=== PATIENT | male | born 1965 | race Caucasian/White ===

== ENCOUNTER → 2017-04-19 15:07 | Outpatient (CLI) | payer OTHER, SELFPAY ==
[2017-04-19 16:24] LABS: Absolute Lymphocyte Count 2.58 X10^3/ul (0.83-4.51); Absolute Neutrophil Count 7.5 X10^3/uL (2.0-7.7); Basophil# 0.05 X10^3/uL; Basophil% 0.4 % (0-1); Eosinophils% 5.1 % (0-5); Hematocrit 43.4 % (40-54); Hemoglobin 14.7 g/dl (13.0-16.5); Lymphocyte # 2.58 X10^3/ul (4.0); Lymphocyte % 22.1 % (19-41); Mean Corp Hgb Conc 33.9 g/gl (32-36); Mean Corpuscular Hgb 30.1 pg (27.0-32.0); Mean Corpuscular Volume 88.9 fL (80-94); Mean Platelet Vol. 9.5 fl (6.2-12.0); Monocyte# 0.96 X10^3/uL; Monocyte% 8.2 % (0-10); Neutrophil # 7.46 X10^3/uL (2.7-7.7); Neutrophil % 63.9 % (47-70); Platelet Count 326 K/mm3 (150-450); RBC Distribution Width CV 14.3 % (11.6-14.6); RBC Distribution Width SD 46.1 fl (35.1-43.9); Red Blood Count 4.88 M/mm3 (4.6-6.2); White Blood Count 11.7 K/mm3 (4.4-11.0)
[2017-04-19 16:28] LABS: POSITIVE COUNT NO; POSITIVE DIFFERENTIAL NO; POSITIVE MORPHOLOGY NO
[2017-04-19 16:48] LABS: ALB/GLOB Ratio 1.1 RATIO (0.9-2.4); AST(SGOT) 16 U/L (15-37); Alanine Aminotransfer ALT/SGPT 32 U/L (16-61); Albumin, Serum 3.9 g/dL (3.2-5.0); Alkaline Phosphatase 69 U/L (45-117); Anion Gap 10 (5-15); BUN 20 mg/dL (7-18); BUN/Creat Ratio 21.4 RATIO (10-20); Chloride 104 mmol/L (98-107); Creatinine, Serum 0.93 mg/dL (0.70-1.30); EST Glomerular Filtration Rate 90 mL/min (>60); Est Glom Filt Rate - Afr Amer 109 mL/min (>60); Globulin 3.6 g/dL (2.2-4.2); Glucose 90 mg/dL (74-106); PSA,Total - Annual Screen 1.96 ng/mL (0.00-4.00); Potassium 4.1 mmol/L (3.5-5.1); Protein, Total 7.5 g/dL (6.4-8.2); Sodium Level 136 mmol/L (136-145); Thyroid Stim Hormone (TSH) 5.22 uIU/mL (0.358-3.74)
[2017-04-19 16:51] LABS: Vitamin D,25 Hydroxy 18.1 ng/mL (29.95-100.01)
[2017-04-21 11:43] LABS: Hep C Antibodies <0.1 s/co ratio (0.0-0.9)
== END ==
PROVIDERS: Visit Provider Family Medicine Geriatric Medicine
DX: E55.9 Vitamin D deficiency, unspecified (principal); I10 Essential (primary) hypertension; Z12.5 Encounter for screening for malignant neoplasm of prostate; Z13.89 Encounter for screening for other disorder
CPT/HCPCS: 36415; 80053; 82306; 84153; 84443; 85025; 86803; G0103

== ENCOUNTER → 2017-05-31 11:51 | Outpatient (CLI) | payer OTHER, SELFPAY | PROVIDERS: PCP Family Medicine Geriatric Medicine; Visit Provider Family Medicine Geriatric Medicine | DX: E03.9 Hypothyroidism, unspecified (principal) | CPT/HCPCS: 36415; 84443 ==

== ENCOUNTER → 2017-07-20 11:13 | Outpatient (CLI) | payer OTHER, SELFPAY ==
[2017-07-20 12:54] LABS: Absolute Lymphocyte Count 1.97 X10^3/ul (0.83-4.51); Absolute Neutrophil Count 5.5 X10^3/uL (2.0-7.7); Basophil# 0.05 X10^3/uL; Basophil% 0.6 % (0-1); Eosinophil# 0.73 X10^3/uL; Eosinophils% 8.1 % (0-5); Hematocrit 43.1 % (40-54); Hemoglobin 14.1 g/dl (13.0-16.5); Lymphocyte # 1.97 X10^3/ul (4.0); Mean Corp Hgb Conc 32.7 g/gl (32-36); Mean Corpuscular Hgb 29.5 pg (27.0-32.0); Mean Corpuscular Volume 90.2 fL (80-94); Monocyte# 0.72 X10^3/uL; Neutrophil # 5.49 X10^3/uL (2.7-7.7); Neutrophil % 61.2 % (47-70); Platelet Count 311 K/mm3 (150-450); RBC Distribution Width SD 45.9 fl (35.1-43.9); Red Blood Count 4.78 M/mm3 (4.6-6.2)
[2017-07-20 12:56] LABS: POSITIVE COUNT NO; POSITIVE DIFFERENTIAL NO; POSITIVE MORPHOLOGY NO
[2017-07-20 13:09] LABS: AST(SGOT) 14 U/L (15-37); Alanine Aminotransfer ALT/SGPT 31 U/L (16-61); Albumin, Serum 3.5 g/dL (3.2-5.0); Alkaline Phosphatase 77 U/L (45-117); Anion Gap 9 (5-15); BUN 18 mg/dL (7-18); BUN/Creat Ratio 16.2 RATIO (10-20); Calcium,Total 8.3 mg/dL (8.5-10.1); Chloride 105 mmol/L (98-107); Creatinine, Serum 1.11 mg/dL (0.70-1.30); EST Glomerular Filtration Rate 74 mL/min (>60); Est Glom Filt Rate - Afr Amer 89 mL/min (>60); Globulin 3.6 g/dL (2.2-4.2); Glucose 118 mg/dL (74-106); Potassium 4.7 mmol/L (3.5-5.1); Protein, Total 7.1 g/dL (6.4-8.2); Sodium Level 138 mmol/L (136-145); Thyroid Stim Hormone (TSH) 4.95 uIU/mL (0.358-3.74)
[2017-07-21 08:39] LABS: Vitamin D,25 Hydroxy 23.8 ng/mL (29.95-100.01)
== END ==
PROVIDERS: PCP Family Medicine Geriatric Medicine; Visit Provider Family Medicine Geriatric Medicine
DX: I10 Essential (primary) hypertension (principal); E55.9 Vitamin D deficiency, unspecified
CPT/HCPCS: 36415; 80053; 82306; 84443; 85025

== ENCOUNTER → 2017-09-27 10:08 | Outpatient (CLI) | payer OTHER, SELFPAY ==
[2017-09-27 10:36] LABS: Absolute Lymphocyte Count 1.93 X10^3/ul (0.83-4.51); Absolute Neutrophil Count 6.1 X10^3/uL (2.0-7.7); Basophil# 0.04 X10^3/uL; Basophil% 0.4 % (0-1); Eosinophil# 0.84 X10^3/uL; Eosinophils% 8.6 % (0-5); Hematocrit 46.6 % (40-54); Hemoglobin 15.5 g/dl (13.0-16.5); Lymphocyte # 1.93 X10^3/ul (4.0); Lymphocyte % 19.8 % (19-41); Mean Corp Hgb Conc 33.3 g/gl (32-36); Mean Corpuscular Hgb 29.9 pg (27.0-32.0); Mean Corpuscular Volume 89.8 fL (80-94); Mean Platelet Vol. 9.3 fl (6.2-12.0); Monocyte# 0.86 X10^3/uL; Monocyte% 8.8 % (0-10); Neutrophil # 6.07 X10^3/uL (2.7-7.7); Neutrophil % 62.2 % (47-70); Platelet Count 285 K/mm3 (150-450); Red Blood Count 5.19 M/mm3 (4.6-6.2); White Blood Count 9.8 K/mm3 (4.4-11.0)
[2017-09-27 10:39] LABS: POSITIVE COUNT NO; POSITIVE DIFFERENTIAL NO; POSITIVE MORPHOLOGY NO
[2017-09-27 11:16] LABS: ALB/GLOB Ratio 0.9 RATIO (0.9-2.4); AST(SGOT) 20 U/L (15-37); Alanine Aminotransfer ALT/SGPT 33 U/L (16-61); Albumin, Serum 3.6 g/dL (3.2-5.0); Alkaline Phosphatase 101 U/L (45-117); Anion Gap 6 (5-15); BUN 19 mg/dL (7-18); Calcium,Total 8.6 mg/dL (8.5-10.1); Chloride 108 mmol/L (98-107); Creatinine, Serum 1.12 mg/dL (0.70-1.30); EST Glomerular Filtration Rate 73 mL/min (>60); Est Glom Filt Rate - Afr Amer 88 mL/min (>60); Globulin 3.9 g/dL (2.2-4.2); Glucose 118 mg/dL (74-106); Potassium 4.4 mmol/L (3.5-5.1); Protein, Total 7.5 g/dL (6.4-8.2); Sodium Level 138 mmol/L (136-145); Thyroid Stim Hormone (TSH) 7.21 uIU/mL (0.358-3.74)
== END ==
PROVIDERS: PCP Family Medicine Geriatric Medicine; Visit Provider Family Medicine Geriatric Medicine
DX: E03.9 Hypothyroidism, unspecified (principal); R10.9 Unspecified abdominal pain
CPT/HCPCS: 36415; 80053; 84443; 85025

== ENCOUNTER → 2017-09-27 10:33 | Outpatient (CLI) | payer OTHER, SELFPAY ==
--- NOTE | 2017-09-27 10:40 | CT_ITS ---
STUDY: CT ABDOMEN AND PELVIS WITH CONTRAST REASON FOR EXAM: Male, 52 years old. LLQ PAIN. Prior colectomy d/t diverticulitis and appendectomy. RADIATION DOSAGE (If Supplied By Facility): CTDIvol = ( 11.50 ) mGy, DLP = ( 949.60 ) mGycm TECHNIQUE: Transaxial images were obtained from the dome of the diaphragm to the symphysis pubis with oral contrast. 100ml ml of Isovue 300 contrast was administered. Sagittal and coronal images were reconstructed. Individualized dose optimization techniques were used for this CT. COMPARISON: January 02, 2014 FINDINGS: The visualized lung bases are unremarkable. The visualized portions of the heart are within normal limits. Normal liver. Normal gallbladder and extrahepatic biliary system. Normal spleen. Normal pancreas. Normal bilateral adrenal glands. Normal right kidney. Normal left kidney. Normal visualized stomach. Normal small intestine. There are multiple colonic diverticula consistent with diverticulosis. There are surgical sutures at the sigmoid. There are surgical clips in the region of the appendix consistent with a prior appendectomy. There is diffuse atherosclerotic calcification of the abdominal aorta, without a demonstrated aneurysm. Normal inferior vena cava. Normal retroperitoneum. Normal urinary bladder. There is a left-sided inguinal hernia containing adipose tissue. There are diffuse degenerative changes of the visualized lumbar spine. CT/Abdomen/Pelvis WITH Contrast IMPRESSION: No acute intra-abdominal or intrapelvic abnormality. Sigmoid postoperative changes. Electronically Signed: Khurram Owen MD at 13:46 EDT Tel , Service support ,
== END ==
PROVIDERS: Family Provider Family Medicine Geriatric Medicine; PCP Family Medicine Geriatric Medicine; Visit Provider Family Medicine Geriatric Medicine
DX: K57.32 Diverticulitis of large intestine without perforation or abscess without bleeding (principal); R10.9 Unspecified abdominal pain
CPT/HCPCS: 74177; Q9967

== ENCOUNTER → 2017-10-20 09:47 | Outpatient (CLI) | payer OTHER, SELFPAY ==
[2017-10-20 12:25] LABS: Absolute Lymphocyte Count 2.14 X10^3/ul (0.83-4.51); Basophil# 0.04 X10^3/uL; Basophil% 0.5 % (0-1); Eosinophil# 0.74 X10^3/uL; Eosinophils% 8.5 % (0-5); Hemoglobin 14.4 g/dl (13.0-16.5); Lymphocyte # 2.14 X10^3/ul (4.0); Lymphocyte % 24.5 % (19-41); Mean Corp Hgb Conc 33.5 g/gl (32-36); Mean Corpuscular Hgb 30.1 pg (27.0-32.0); Mean Platelet Vol. 9.7 fl (6.2-12.0); Monocyte# 0.78 X10^3/uL; Monocyte% 8.9 % (0-10); Neutrophil # 5.01 X10^3/uL (2.7-7.7); Neutrophil % 57.4 % (47-70); POSITIVE COUNT NO; POSITIVE DIFFERENTIAL NO; POSITIVE MORPHOLOGY NO; Platelet Count 334 K/mm3 (150-450); RBC Distribution Width CV 14.3 % (11.6-14.6); RBC Distribution Width SD 46.9 fl (35.1-43.9); Red Blood Count 4.78 M/mm3 (4.6-6.2); White Blood Count 8.7 K/mm3 (4.4-11.0)
[2017-10-20 12:51] LABS: AST(SGOT) 14 U/L (15-37); Alanine Aminotransfer ALT/SGPT 29 U/L (16-61); Albumin, Serum 3.3 g/dL (3.2-5.0); Alkaline Phosphatase 72 U/L (45-117); Anion Gap 6 (5-15); BUN 13 mg/dL (7-18); BUN/Creat Ratio 11.6 RATIO (10-20); Calcium,Total 8.5 mg/dL (8.5-10.1); Chloride 107 mmol/L (98-107); Creatinine, Serum 1.12 mg/dL (0.70-1.30); EST Glomerular Filtration Rate 73 mL/min (>60); Est Glom Filt Rate - Afr Amer 88 mL/min (>60); Globulin 3.4 g/dL (2.2-4.2); Glucose 98 mg/dL (74-106); Protein, Total 6.7 g/dL (6.4-8.2); Sodium Level 142 mmol/L (136-145); Thyroid Stim Hormone (TSH) 4.31 uIU/mL (0.358-3.74)
== END ==
PROVIDERS: Family Provider Family Medicine Geriatric Medicine; PCP Family Medicine Geriatric Medicine; Visit Provider Family Medicine Geriatric Medicine
DX: E55.9 Vitamin D deficiency, unspecified (principal); I10 Essential (primary) hypertension
CPT/HCPCS: 36415; 80053; 82306; 84443; 85025

== ENCOUNTER 2018-01-08 00:52 | Emergency (ER) | payer OTHER, SELFPAY ==
[2018-01-08 00:53] VITALS: BP 164/108; PULSE 111; RESP 16; TEMP 37.4; O2SAT 98; BMI 35.3
--- NOTE | 2018-01-08 01:05 | CT_ITS ---
STUDY: CT ABDOMEN AND PELVIS WITH CONTRAST REASON FOR EXAM: Male, 52 years old. Left lower quadrant pain. Fever RADIATION DOSAGE (If Supplied By Facility): CTDIvol = ( 23.58 ) mGy, DLP = ( 1261.73 ) mGycm TECHNIQUE: Transaxial images were obtained from the dome of the diaphragm to the symphysis pubis without oral contrast. 100ML ml of Isovue 300 contrast was administered. Sagittal and coronal images were reconstructed. Individualized dose optimization techniques were used for this CT. COMPARISON: None. FINDINGS: The visualized lung bases are unremarkable. The visualized portions of the heart are within normal limits. Normal liver. Normal gallbladder and extrahepatic biliary system. Normal spleen. Normal pancreas. Normal bilateral adrenal glands. Normal right kidney. There is an exophytic lesion in the left kidney measures 2.6 cm is consistent with benign cyst.. Normal visualized stomach. Normal small intestine. There are multiple colonic diverticula consistent with diverticulosis. There is surgical anastomosis in the sigmoid colon. There are surgical clips in the region of the appendix consistent with a prior appendectomy. Normal abdominal aorta. Normal inferior vena cava. Normal retroperitoneum. Normal urinary bladder. There is a left-sided inguinal hernia containing adipose tissue. Normal osseous structures. CT/Abdomen/Pelvis WITH Contrast IMPRESSION: Colon diverticulosis. There is no evidence of diverticulitis. Electronically Signed: Poncho hTomas MD at 3:37 EST Tel , Service support ,
[2018-01-08] MEDS: 0.9% Normal Saline 1,000 ML 1000 ML IV (01:11)
[2018-01-08] MEDS: Ondansetron 4 MG/2 ML Vial IV (01:12)
[2018-01-08] MEDS: Morphine 4 MG/ML Syringe IV (01:12)
[2018-01-08 01:25] LABS: Anion Gap 6 (5-15); BUN 18 mg/dL (7-18); BUN/Creat Ratio 15.1 RATIO (10-20); Calcium,Total 8.4 mg/dL (8.5-10.1); Chloride 103 mmol/L (98-107); Creatinine, Serum 1.19 mg/dL (0.70-1.30); EST Glomerular Filtration Rate 68 mL/min (>60); Est Glom Filt Rate - Afr Amer 82 mL/min (>60); Estimated Creatinine Clearance 69.45 ml/min; Glucose 115 mg/dL (74-106); Potassium 4.1 mmol/L (3.5-5.1); Sodium Level 137 mmol/L (136-145)
[2018-01-08 01:34] LABS: Absolute Lymphocyte Count 2.73 X10^3/ul (0.83-4.51); Absolute Neutrophil Count 5.3 X10^3/uL (2.0-7.7); Basophil# 0.03 X10^3/uL; Basophil% 0.3 % (0-1); Eosinophil# 0.49 X10^3/uL; Eosinophils% 5.1 % (0-5); Hematocrit 48.1 % (40-54); Hemoglobin 16.3 g/dl (13.0-16.5); Lymphocyte # 2.73 X10^3/ul (4.0); Lymphocyte % 28.6 % (19-41); Mean Corp Hgb Conc 33.9 g/gl (32-36); Mean Corpuscular Hgb 30.5 pg (27.0-32.0); Mean Corpuscular Volume 90.1 fL (80-94); Mean Platelet Vol. 9.7 fl (6.2-12.0); Monocyte# 0.98 X10^3/uL; Monocyte% 10.3 % (0-10); Neutrophil % 55.6 % (47-70); Platelet Count 214 K/mm3 (150-450); RBC Distribution Width CV 13.8 % (11.6-14.6); RBC Distribution Width SD 45.3 fl (35.1-43.9); Red Blood Count 5.34 M/mm3 (4.6-6.2); White Blood Count 9.5 K/mm3 (4.4-11.0)
[2018-01-08 01:35] LABS: Differential Indicated SCAN CRITERIA MET; POSITIVE COUNT NO; POSITIVE DIFFERENTIAL NO; POSITIVE MORPHOLOGY YES
[2018-01-08 02:29] LABS: Platelet Estimate ADEQUATE (ADEQ)
[2018-01-08 02:30] LABS: Differential Comment SCANNED; Reactive Lymphocyte RARE
[2018-01-08] MEDS: Ketorolac 30 MG/ML Syringe IV (02:36)
[2018-01-08 03:31] VITALS: RESP 16
--- NOTE | 2018-01-08 03:31 | ED.RN ---
MD AWARE THAT THE PT STILL IS HAVING PAIN AFTER THE TORADOL,MD ASH WILL WAIT FOR CT RESULTS BEFORE ANY MORE MEDS GIVEN.PT MADE AWARE,PT FINE WITH THAT.,
--- NOTE | 2018-01-08 03:46 | ED.VISSUMM ---
- ER Visit Summary Date of Service: 01/08/18 Chief Complaint: Abdominal pain History of Present Illness: The patient is a 52 M who presents with abdominal pain. It began 3 days ago. He rates it as 14 out of 10. His pain is all located in the left lower quadrant. It feels similar to prior bouts of diverticulitis. He reports fever of 100-101. He did have one episode of loose stool yesterday. He reports nausea without vomiting. No chest pain shortness of breath. No urinary symptoms such as dysuria frequency urgency. Physical Examination: Initial heart rate 111 hypertensive with blood pressure 164/108 temperature 99.3 which is normal No distress Heart regular rhythm slightly tachycardic Lungs are clear Abdomen soft nondistended he has mild left lower quadrant tenderness Genitourinary exam normal no scrotal erythema or testicular tenderness or swelling No groin tenderness Test Results: CBC normal. BMP normal. CT the abdomen and pelvis shows diverticulosis without evidence of diverticulitis. Emergency Department Course and Treatment: Patient was initially treated with warfarin and Zofran with improvement of symptoms. He complained of his pain returning was given IV Toradol. His workup as above is unremarkable. He has a history of prior similar symptoms with negative imaging. He was advised that if symptoms continue he may need further outpatient workup such as colonoscopy. He was advised to follow-up with his primary care physician. He was discharged. Treatment Plan: [] Disposition: Discharge Impression: Left lower quadrant abdominal pain This note was generated with [employer] dictation software. It may contain incorrect words, spelling, and punctuation that were not noted in review of the chart prior to signing ED Disposition - Plan for ED Patient: Chief Complaint: Abd Pain Referrals: Bobby Murillo Chi, MD [Primary Care Provider] -
--- NOTE | 2018-01-08 03:49 | ED.DCSUM_ITS ---
- ER Visit Summary Date of Service: 01/08/18 Chief Complaint: Abdominal pain History of Present Illness: The patient is a 52 M who presents with abdominal pain. It began 3 days ago. He rates it as 14 out of 10. His pain is all located in the left lower quadrant. It feels similar to prior bouts of dive rticulitis. He reports fever of 100-101. He did have one episode of loose stool yesterday. He reports nausea without vomiting. No chest pain shortness of breath. No urinary symptoms such as dysuria frequency urgency. Physical Examination: Initial heart rate 111 hypertensive with blood pressure 164/108 temperature 99.3 which is normal No distress Heart regular rhythm slightly tachycardic Lungs are clear Abdomen soft nondistended he has mild left lower quadrant tenderness Genitourinary exam normal no scrotal erythema or testicular tenderness or swelling No groin tenderness Test Results: CBC normal. BMP normal. CT the abdomen and pelvis shows diverticulosis without evidence of diverticulitis. Emergency Department Course and Treatment: Patient was initially treated with warfarin and Zofran with improvement of symptoms. He complained of his pain returning was given IV Toradol. His workup as above is unremarkable. He has a history of prior similar symptoms with negative imaging. He was advised that if symptoms continue he may need further outpatient workup such as colonoscopy. He was advised to follow-up with his primary care physician. He was discharged. Treatment Plan: [] Disposition: Discharge Impression: Left lower quadrant abdominal pain This note was generated with [employer] dictation software. It may contain incorrect words, spelling, and punctuation that were not noted in review of the chart prior to signing ED Disposition - Plan for ED Patient: Chief Complaint: Abd Pain Referrals: Bobby Murillo Chi, MD [Primary Care Provider] -
--- NOTE | 2018-01-08 03:49 | ED.DEP ---
ED Disposition - Plan for ED Patient: Chief Complaint: Abd Pain Instructions: ED Abdominal Pain Unkn Cause Male Referrals: Bobby Murillo Chi, MD [Primary Care Provider] -
[2018-01-08 03:50] VITALS: BP 157/91; PULSE 89; RESP 16; O2SAT 97
== END 2018-01-08 03:51 | disposition home or self-care (01) ==
PROVIDERS: Emergency Provider Emergency Medicine; Family Provider Family Medicine Geriatric Medicine; PCP Family Medicine Geriatric Medicine
DX: R10.32 Left lower quadrant pain (principal); K57.30 Diverticulosis of large intestine without perforation or abscess without bleeding; I25.10 Atherosclerotic heart disease of native coronary artery without angina pectoris; I10 Essential (primary) hypertension; E78.00 Pure hypercholesterolemia, unspecified; I25.2 Old myocardial infarction; Z72.0 Tobacco use
CPT/HCPCS: 74177; 80048; 85025; 96361; 96374; 96375; 99284; J7030; Q9967; A4216; J2405

== ENCOUNTER → 2018-01-24 10:06 | Outpatient (CLI) | payer OTHER, SELFPAY ==
[2018-01-08 00:53] VITALS: BMI 35.3
[2018-01-24 12:31] LABS: Absolute Lymphocyte Count 2.71 X10^3/ul (0.83-4.51); Absolute Neutrophil Count 5.2 X10^3/uL (2.0-7.7); Basophil# 0.05 X10^3/uL; Basophil% 0.5 % (0-1); Eosinophil# 0.66 X10^3/uL; Eosinophils% 7.1 % (0-5); Hematocrit 45.1 % (40-54); Hemoglobin 14.8 g/dl (13.0-16.5); Lymphocyte # 2.71 X10^3/ul (4.0); Lymphocyte % 29.1 % (19-41); Mean Corp Hgb Conc 32.8 g/gl (32-36); Mean Corpuscular Hgb 29.7 pg (27.0-32.0); Mean Corpuscular Volume 90.4 fL (80-94); Mean Platelet Vol. 9.3 fl (6.2-12.0); Monocyte# 0.68 X10^3/uL; Monocyte% 7.3 % (0-10); Neutrophil # 5.21 X10^3/uL (2.7-7.7); Neutrophil % 55.9 % (47-70); Platelet Count 302 K/mm3 (150-450); RBC Distribution Width CV 13.9 % (11.6-14.6); RBC Distribution Width SD 45.7 fl (35.1-43.9); Red Blood Count 4.99 M/mm3 (4.6-6.2); White Blood Count 9.3 K/mm3 (4.4-11.0)
[2018-01-24 12:37] LABS: POSITIVE COUNT NO; POSITIVE DIFFERENTIAL NO; POSITIVE MORPHOLOGY NO
[2018-01-24 12:43] LABS: Vitamin D,25 Hydroxy 18.3 ng/mL (29.95-100.01)
[2018-01-24 12:56] LABS: ALB/GLOB Ratio 0.9 RATIO (0.9-2.4); AST(SGOT) 19 U/L (15-37); Alanine Aminotransfer ALT/SGPT 41 U/L (16-61); Albumin, Serum 3.4 g/dL (3.2-5.0); Alkaline Phosphatase 87 U/L (45-117); Anion Gap 6 (5-15); BUN 15 mg/dL (7-18); BUN/Creat Ratio 15.4 RATIO (10-20); Calcium,Total 8.4 mg/dL (8.5-10.1); Chloride 108 mmol/L (98-107); Creatinine, Serum 0.98 mg/dL (0.70-1.30); EST Glomerular Filtration Rate 85 mL/min (>60); Est Glom Filt Rate - Afr Amer 103 mL/min (>60); Globulin 3.6 g/dL (2.2-4.2); Glucose 102 mg/dL (74-106); Sodium Level 139 mmol/L (136-145); Thyroid Stim Hormone (TSH) 6.31 uIU/mL (0.358-3.74)
--- OUTSIDE RECORDS SUMMARY | 2018-03-19 14:55 | XMS RPT_ITS ---
:1965 Author Organization OHIP Support Name Relationship Address Phone MELISSA HAYNES Unavailable 1 + [place] [address] [facility] Unavailable [address] + [place] [address] [facility] DAVID Unavailable 1 + [place] [id number] MELISSA HAYNES Unavailable 1 + [place] [address] [facility] Unavailable [address] + [place] [address] WAY DAVID Unavailable 1 + [place] [id number] MELISSA HAYNES Unavailable 1 + [place] [address] CIR[facility] Unavailable . + [place] [address] TORI DAVID Unavailable 1 + [place] [address] ARLENEVAISHALIMELISSA HILL Unavailable Unavailable + [place] [id number] CIRCO Unavailable . + [place] [address] [facility] DAVID Unavailable Unavailable + [place] [id number] ARLENEVAISHALILIZ MELISSA Unavailable Unavailable + [place] [phone] CIRCO Unavailable . + [place] [address] [facility] DAVID Unavailable Unavailable + [place] [id number] SHAN White SHARAD AND SONS Unavailable X + X X, x X SHAN Cindy SHARAD AND SONS Unavailable X + X X, x X SHAN Cindy SHARAD AND SONS Unavailable X + X X, x X SHAN OROURKE AND SRINIVASA Unavailable X + X X, x X SHAN OROURKE AND SRINIVASA Unavailable X + X X, x X ISSA OROURKE Unavailable [address] + [place] [address] SHAN OROURKE AND SONS Unavailable X + X X, x X SHARAD, ISSA Unavailable [address] + [place] [address] SHAN OROURKE AND SONS Unavailable X + X X, x X ALICE GOVEA Unavailable X + [place] [address] ADVID VALLE Unavailable Unavailable + Care Team Providers Name Role Phone Chidi, Bobby Chi Attending Unavailable Chidi, Bobby Chi Attending Unavailable Primay Care Physicia, No Primary Care Unavailable Patricia Cummings Attending Unavailable Kulwant Thurston Attending Unavailable Chidi, Bobby Chi Referring Unavailable Chidi, Bobby Chi Attending Unavailable Chidi, Bobby Chi Attending Unavailable Chidi, Bobby Chi Attending Unavailable Chidi, Bobby Chi Referring Unavailable Chidi, Bobby Chi Primary Care Unavailable Chidi, Bobby Chi Attending Unavailable Chidi, Bobby Chi Primary Care Unavailable Melissa Carrasco Attending Unavailable Chidi, Bobby Chi Referring Unavailable Chidi, Bobby Chi Attending Unavailable Chidi, Bobby Chi Primary Care Unavailable Chidi, Bobby Chi Primary Care Unavailable Alvin Briseno Attending Unavailable WilliamsGeorgette stack Primary Care Unavailable Chon Astorga Admitting Unavailable Chon Astorga Attending Unavailable Allen Biggs Admitting Unavailable Allen Biggs Attending Unavailable PROVIDER, UNKNOWN Consulting Unavailable [employer] Unavailable PROBLEMS PROBLEMS DATE TYPE CONDITION / CODE ATTENDING STATUS SOURCE 09/27/2017 Unknown E03.9 - Chidi, Bobby Chi Active [place] Hypothyroidism, Community unspecified / Hospital E03.9(ICD-10) Repository 09/27/2017 Unknown R10.9 - Chidi, Bobby Chi Active [place] Unspecified Community abdominal pain / Hospital R10.9(ICD-10) Repository 04/19/2017 Unknown E55.9 - Vitamin D Chidi, Bobby Chi Active [place] deficiency, Community unspecified / Hospital E55.9(ICD-10) Repository PROCEDURES PROCEDURES No Procedure Records FoundRESULTS RESULTS CBC W/DIFF, AUTOMATED Collected: 01/24/2018 Status: F Source: [place] 10:07 AM [facility] REPOSITORY TYPE CODE TESTS RESULT OUT OF RANGE REFERENCE UNITS LAB L100.1000 4.4-11.0 K/mm3 Normal WBC 9.3 LAB L100.1200 4.6-6.2 M/mm3 Normal RBC 4.99 LAB L100.1300 13.0-16.5 g/dl Normal HGB 14.8 LAB L100.1400 40-54 % Normal HCT 45.1 LAB L100.1500 80-94 fL Normal MCV 90.4 LAB L100.1600 27.0-32.0 pg Normal MCH 29.7 LAB L100.1700 32-36 g/gl Normal MCHC 32.8 LAB L100.1810 11.6-14.6 % Normal RDW CV 13.9 LAB L100.1820 35.1-43.9 fl High RDW SD 45.7 LAB L100.1900 150-450 K/mm3 Normal PLT 302 LAB L100.2000 6.2-12.0 fl Normal MPV 9.3 LAB L100.2100 47-70 % Normal NEUT% 55.9 LAB L100.2200 19-41 % Normal LY% 29.1 LAB L100.2300 0-10 % Normal MONO% 7.3 LAB L100.2400 0-5 % High EO% 7.1 LAB L100.2500 0-1 % Normal BASO% 0.5 LAB L100.2550 0.0-0.9 % Normal IM GRAN % 0.100 Result Comment: IG% - Immature Granulocytes (promyelocytes, myelocytes and metamyelocytes) > 1% indicates that a LEFT SHIFT is Present. LAB L100.2620 2.0-7.7 X10 3/uL Normal Absolute Neut 5.2 LAB L100.2720 0.83-4.51 X10 3/ul Normal Absolute Lymph 2.71 Performed By: #### L100.0100 #### [facility] [address] [place], [address] VITAMIN D,25 HYDROXY Collected: 01/24/2018 Status: F Source: [place] 10:07 AM [facility] REPOSITORY TYPE CODE TESTS RESULT OUT OF REFERENCE UNITS RANGE LAB L506.1000 29.95-100.01 ng/mL Low Vitamin D 18.3 25-OH Result Comment: Vitamin D 25(OH) Status Range Deficiency <20 ng/mL (50nmol/L) Insuffciency 20 - 30 ng/mL (50 - 75 nmol/L) Sufficiency 30 - 100 ng/mL (75 - 250 nmol/L) Toxicity >100 ng/mL (>250 nmol/L) Performed By: #### L506.1000 #### [facility] [place], [address] COMPREHENSIVE METABOLIC Collected: 01/24/2018 Status: F Source: [place] [facility] 10:07 AM [facility] REPOSITORY TYPE CODE TESTS RESULT OUT OF RANGE REFERENCE UNITS LAB L501.0100 74-106 mg/dL Normal GLU 102 Result Comment: Fasting Glucose result from 100 to 125 mg/dL suggests IMPAIRED HOMEOSTASIS per A.D.A. criteria. Please note revised GLUCOSE reference range effective 2017. LAB L501.1000 7-18 mg/dL Normal BUN 15 LAB L501.1100 0.70-1.30 mg/dL Normal CREAT,SERUM 0.98 Result Comment: The validity of the calculated GFR AND GFRAA in patients over 70 years has not been determined. Clinical correlation is essential. LAB L501.1110 >60 mL/min Normal EST GFR 85 Result Comment: Non- GFR Calc LAB L501.1115 >60 mL/min Normal EST GFR - AA 103 Result Comment: GFR Calc LAB L501.1300 10-20 RATIO Normal BUN/CRE 15.4 LAB L501.1500 6.4-8.2 g/dL T Normal PROT 7.0 LAB L501.1800 3.2-5.0 g/dL Normal ALB 3.4 LAB L501.1950 2.2-4.2 g/dL Normal GLOB 3.6 LAB L501.2000 0.9-2.4 RATIO Normal A/G 0.9 LAB L501.2200 8.5-10.1 mg/dL Low CA 8.4 LAB L501.4100 15-37 U/L Normal AST 19 LAB L501.4305 45-117 U/L Normal ALK P 87 LAB L501.4405 16-61 U/L Normal ALT 41 LAB L501.4600 0.20-1.00 mg/dL T Normal BILI 0.50 LAB L501.5300 136-145 mmol/L NA Normal 139 LAB L501.5600 3.5-5.1 mmol/L K Normal 4.0 LAB L501.5900 98-107 mmol/L High CL 108 LAB L501.6100 21.0-32.0 mmol/L Normal CO2 25.0 LAB L501.6200 5-15 Normal GAP 6 Performed By: #### L500.4050, L501.9520 #### [facility] [address] [facility] [place], [address] THYROID STIM HORMONE Collected: 01/24/2018 Status: F Source: [facility] (TSH) 10:07 AM [facility] REPOSITORY TYPE CODE TESTS RESULT OUT OF RANGE REFERENCE UNITS LAB L501.9520 0.358-3.74 uIU/mL High TSH 6.31 Performed By: #### L500.4050, L501.9520 #### [facility] [address] [place], [address] EMERGENCY DEPARTMENT Observed: 01/08/2018 Status: F Source: [place] SUMMARY 3:49 AM [facility] REPOSITORY [facility] Medical Records Department [address] [place] [address] Emergency Department Summary 01/08/18 0346 MR#: [id number] Acct: [id number] Name: EVARISTO HAYNES Rep #: [id number] : 1965 52 From: Alvin Briseno MD PCP: Chidi ORELLANA,Bobby Chi Status: REG ER - ER Visit Summary Date of Service: 01/08/18 Chief Complaint: Abdominal pain History of Present Illness: The patient is a 52 M who presents with abdominal pain. It began 3 days ago. He rates it as 14 out of 10. His pain is all located in the left lower quadrant. It feels similar to prior bouts of diverticulitis. He reports fever of 100-101. He did have one episode of loose stool yesterday. He reports nausea without vomiting. No chest pain shortness of breath. No urinary symptoms such as dysuria frequency urgency. Physical Examination: Initial heart rate 111 hypertensive with blood pressure 164/108 temperature 99.3 which is normal No distress Heart regular rhythm slightly tachycardic Lungs are clear Abdomen soft nondistended he has mild left lower quadrant tenderness Genitourinary exam normal no scrotal erythema or testicular tenderness or swelling No groin tenderness Test Results: CBC normal. BMP normal. CT the abdomen and pelvis shows diverticulosis without evidence of diverticulitis. Emergency Department Course and Treatment: Patient was initially treated with warfarin and Zofran with improvement of symptoms. He complained of his pain returning was given IV Toradol. His workup as above is unremarkable. He has a history of prior similar symptoms with negative imaging. He was advised that if symptoms continue he may need further outpatient workup such as colonoscopy. He was advised to follow-up with his primary care physician. He was discharged. Treatment Plan: [] Disposition: Discharge Impression: Left lower quadrant abdominal pain This note was generated with Solutionary dictation software. It may contain incorrect words, spelling, and punctuation that were not noted in review of the chart prior to signing ED Disposition - Plan for ED Patient: Chief Complaint: Abd Pain Referrals: Bobby Murillo Chi, MD [Primary Care Provider] - What to do if you have Problems For any increased pain, shortness of breath, bleeding, nausea or vomiting, chest pain, or any unexpected problems, contact your Primary Care Provider. Call [facility] ([phone]) or report to the closest Emergency Room. Call 911 if necessary. 01/08/18 0349 <Electronically signed by Alvin Briseno MD> Date Alvin Briseno MD Cosigner Signature (If Indicated): Date CC: Bobby Murillo MD DISCHARGE INSTRUCTION Observed: 01/08/2018 Status: F Source: [facility] 3:49 AM [facility] Medical Records Department [address] [place] [address] Discharge Instruction 01/08/18348 MR#: [id number] Acct: [id number] Name: EVARISTO HAYNES Rep #: [id number] : 1965 52 From: Alvin Briseno MD PCP: Bobby Murillo MD, Chi Status: REG ER ED Disposition - Plan for ED Patient: Chief Complaint: Abd Pain Instructions: ED Abdominal Pain Unkn Cause Male Referrals: Bobby Murillo Chi, MD [Primary Care Provider] - What to do if you have Problems For any increased pain, shortness of breath, bleeding, nausea or vomiting, chest pain, or any unexpected problems, contact your Primary Care Provider. Call [facility] ([phone]) or report to the closest Emergency Room. Call 911 if necessary. 01/08/18348 <Electronically signed by Alvin Briseno MD> Date Alvin Briseno MD Cosigner Signature (If Indicated): Date CC: Bobby Murillo MD ABDOMEN/PELVIS WITH Observed: 01/08/2018 Status: F Source: [facility] CONTRAST 1:06 AM [facility] REPOSITORY [facility] Imaging Services [address] [place] [address] Abdomen/Pelvis WITH Contrast MR#: [id number] Acct: [id number] Name: EVARISTO HAYNES Rep #: [id number] : 1965 M 52 From: Poncho Thomas MD PCP: Bobby Murillo MD, Chi Status: REG ER Study: Abdomen/Pelvis WITH Contrast Date of Exam: 01/08/18 Exam# [id number] Ordering Dr: Alvin Briseno MD STUDY: CT ABDOMEN AND PELVIS WITH CONTRAST REASON FOR EXAM: Male, 52 years old. Left lower quadrant pain. Fever RADIATION DOSAGE (If Supplied By Facility): CTDIvol = ( 23.58 ) mGy, DLP = ( 1261.73 ) mGycm TECHNIQUE: Transaxial images were obtained from the dome of the diaphragm to the symphysis pubis without oral contrast. 100ML ml of Isovue 300 contrast was administered. Sagittal and coronal images were reconstructed. Individualized dose optimization techniques were used for this CT. COMPARISON: None. FINDINGS: The visualized lung bases are unremarkable. The visualized portions of the heart are within normal limits. Normal liver. Normal gallbladder and extrahepatic biliary system. Normal spleen. Normal pancreas. Normal bilateral adrenal glands. Normal right kidney. There is an exophytic lesion in the left kidney measures 2.6 cm is consistent with benign cyst.. Normal visualized stomach. Normal small intestine. There are multiple colonic diverticula consistent with diverticulosis. There is surgical anastomosis in the sigmoid colon. There are surgical clips in the region of the appendix consistent with a prior appendectomy. Normal abdominal aorta. Normal inferior vena cava. Normal retroperitoneum. Normal urinary bladder. There is a left-sided inguinal hernia containing adipose tissue. Normal osseous structures. CT/Abdomen/Pelvis WITH Contrast IMPRESSION: Colon diverticulosis. There is no evidence of diverticulitis. Electronically Signed: Poncho Thomas MD at 3:37 EST Tel , Service support , CC: Alvin Briseno MD; Bobby Murillo MD Supervisor Steffen House: Signed BASIC METABOLIC Collected: 01/08/2018 Status: F Source: [place] PROFILE (BMP) 1:00 AM [facility] REPOSITORY TYPE CODE TESTS RESULT OUT OF RANGE REFERENCE UNITS LAB L501.0100 74-106 mg/dL High GLU 115 Result Comment: Fasting Glucose result from 100 to 125 mg/dL suggests IMPAIRED HOMEOSTASIS per A.D.A. criteria. Please note revised GLUCOSE reference range effective 2017. LAB L501.1000 7-18 mg/dL Normal BUN 18 LAB L501.1100 0.70-1.30 mg/dL Normal CREAT,SERUM 1.19 Result Comment: The validity of the calculated GFR AND GFRAA in patients over 70 years has not been determined. Clinical correlation is essential. LAB L501.1110 >60 mL/min Normal EST GFR 68 Result Comment: Non- GFR Calc LAB L501.1115 >60 mL/min Normal EST GFR - AA 82 Result Comment: GFR Calc LAB L501.1255 ml/min Normal Estimated CRCL 69.45 LAB L501.1300 10-20 RATIO Normal BUN/CRE 15.1 LAB L501.2200 8.5-10 mg/dL Low .1 CA 8.4 LAB L501.5300 136-14 mmol/L Normal 5 NA 137 LAB L501.5600 3.5-5. mmol/L Normal 1 K 4.1 Result Comment: Slight Hemolysis, Result may be falsely increased. LAB L501.5900 98-107 mmol/L Normal CL 103 LAB L501.6100 21.0-32.0 mmol/L Normal CO2 28.0 LAB L501.6200 5-15 Normal 6 GAP Performed By: #### L500.2500 #### [facility] [place], [address] CBC W/DIFF, AUTOMATED Collected: 01/08/2018 Status: F Source: [facility] 1:00 AM [facility] REPOSITORY TYPE CODE TESTS RESULT OUT OF RANGE REFERENCE UNITS LAB L100.1000 4.4-11.0 K/mm3 Normal WBC 9.5 LAB L100.1200 4.6-6.2 M/mm3 Normal RBC 5.34 LAB L100.1300 13.0-16.5 g/dl Normal HGB 16.3 LAB L100.1400 40-54 % Normal HCT 48.1 LAB L100.1500 80-94 fL Normal MCV 90.1 LAB L100.1600 27.0-32.0 pg Normal MCH 30.5 LAB L100.1700 32-36 g/gl Normal MCHC 33.9 LAB L100.1810 11.6-14.6 % Normal RDW CV 13.8 LAB L100.1820 35.1-43.9 fl High RDW SD 45.3 LAB L100.1900 150-450 K/mm3 Normal PLT 214 LAB L100.2000 6.2-12.0 fl Normal MPV 9.7 LAB L100.2100 47-70 % Normal NEUT% 55.6 LAB L100.2200 19-41 % Normal LY% 28.6 LAB L100.2300 0-10 % High MONO% 10.3 LAB L100.2400 0-5 % High EO% 5.1 LAB L100.2500 0-1 % Normal BASO% 0.3 LAB L100.2550 0.0-0.9 % Normal IM GRAN % 0.100 Result Comment: IG% - Immature Granulocytes (promyelocytes, myelocytes and metamyelocytes) > 1% indicates that a LEFT SHIFT is Present. LAB L100.2620 2.0-7.7 X10 3/uL Normal Absolute Neut 5.3 LAB L100.2720 0.83-4.51 X10 3/ul Normal Absolute Lymph 2.73 LAB L100.4500 Normal SMEAR COMMENT SCANNED LAB L100.4700 Normal REACTIVE LYMPH RARE LAB L100.5500 ADEQ Normal PLT EST ADEQUATE Result Comment: RARE GIANT PLATELET NOTED Performed By: #### L100.0100 #### [facility] [address] [facility]. [place], [place], [address] CARDIOLOGY VISIT Observed: 11/29/2017 Status: F Source: [facility] REPORT 12:57 PM [facility] REPOSITORY [facility] [address] [place], [place] [address] OFFICE VISIT Date of Service: 11/29/17 MR#: [id number] Acct: [id number] Name: EVARISTO HAYNES Rep #: [id number] : 1965 Provider: CORBY Carrasco Age/Sex: 52/M [place] [facility] [place] Status: Signed HPI HPI Details: EVARISTO HAYNES, is a 52 M who presents to the office today for a cardiovascular outpatient follow-up. He has a history of non-ST elevated myocardial infarction in February 2017 status post angioplasty and stenting of proximal LAD at [facility]. He also has a history of hypertension and hyperlipidemia. Pt. denies chest, arm, jaw, or neck discomfort. He states prior to PCI he had chest pain, back pain and arm/shoulder pain. His exercise tolerance is stable. Pt. denies symptoms of CHF, palpitations, lightheadedness, dizziness, near syncope, or syncopal episodes. Pt. denies edema or claudication issues. Pt. denies orthopnea, PND, blood in urine, blood in stool, myalgia, or unexplainable fatigue. 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 Accompanied by: None Is patient in pain?: No Allergies Sulfa (Sulfonamide Antibiotics) Allergy (Verified 11/29/17 09:12) Other Medications aspirin 81 mg tablet,delayed release PO 05/19/17 [History Confirmed 11/29/17] atorvastatin 40 mg tablet 40 mg PO QHS tab 05/19/17 [History Confirmed 11/29/17] bupropion HCl SR 150 mg tablet,12 hr sustained-release 150 mg PO BID 05/19/17 [History Confirmed 11/29/17] cholecalciferol (vitamin D3) 1,000 unit tablet 1,000 unit PO BID tab 05/19/17 [History Confirmed 11/29/17] duloxetine 60 mg capsule,delayed release 60 mg PO QDAY 05/19/17 [History Confirmed 11/29/17] metoprolol tartrate 25 mg tablet 25 mg PO BID 05/19/17 [History Confirmed 11/29/17] ticagrelor 90 mg tablet 90 mg PO BID 05/19/17 [History Confirmed 11/29/17] tamsulosin 0.4 mg capsule 0.4 mg PO QDAY 05/26/17 [History Confirmed 11/29/17] levothyroxine 88 mcg tablet 88 mcg PO DAILY 11/29/17 [History Confirmed 11/29/17] [facility] Medical History Pure hypercholesterolemia (Chronic) Essential (primary) hypertension (Chronic) Non-ST elevation (NSTEMI) myocardial infarction (Chronic 02/2017) Nicotine dependence (Chronic) Obesity (Chronic) Atherosclerosis of coronary artery of [place] heart without angina pectoris (Chronic) Anxiety and depression (Chronic) Diverticulitis (Chronic) Hypothyroidism (Chronic) Migraine (Chronic) Surgical History History of coronary artery stent placement (Chronic 03/01/17) History of appendectomy (Chronic) History of colectomy (Chronic) History of tonsillectomy (Chronic) History of uvulopalatopharyngoplasty (Resolved) Status post correction of deviated nasal septum (Resolved) Family History Father CAD (coronary artery disease) coronary stents Kidney disease Mother CHF (congestive heart failure) Aortic valve replaced Brother Atrial fibrillation Social History Smoking Status: Light Smoker (<10/day) alcohol intake: never caffeine: Yes Type: carbonated beverages Number of servings: 3 ROS Const Const: Negative for body ache, fever(s), chills, fatigue or weakness ENT ENT: Negative for dizziness Cardio Chest Pain: No Palpitations: No Edema: None Muscle aches with walking: None Resp Respiratory: Negative for SOB with activity, SOB at rest, SOB orthopnea\SOB lying down or paroxysmal nocturnal dyspnea GI GI: Negative nausea, black,tarry stools, bright, red blood in stools or vomiting blood/hematemesis : Negative for hematuria or frequent nighttime urination/ nocturia Musc Musc: Negative for muscle aches/ myalgia Skin Skin: Negative non-healing lesions or rash Neuro Neuro: Negative for weakness, dizziness, lightheadedness, near syncope, syncope or orthostatic symptoms Endo Endo: Negative for fatigue Allergy Allergy/Immunology: Negative for rash Cardiology Exam Const Appearance: cooperative, healthy appearing, comfortable and no acute distress Nutritional Appearance: average body habitus, well nourished and overweight Orientation: alert, awake and oriented x3 Head Head: normal to inspection Ears: hearing grossly normal bilaterally Nose: external nose normal Face and Sinus: face symmetric Mouth: oral mucosae normal Eyes General: appearance normal, both eyes and all related structures Eyelids: eyelids normal EOM: EOM intact bilaterally Neck Neck: no JVD and normal visual inspection Carotids: normal carotid upstroke Chest Chest inspection: normal inspection of the chest and normal respiratory effort; negative cough Auscultation: Bilateral: Clear to Auscultation Cardio Rate: regular rate Rhythm: regular rhythm Heart sounds: S1 normal and S2 normal; negative rub, gallop or murmur GI GI: normal to inspection Neuro General: alert, awake, oriented x3 and CN's II-XI intact bilaterally Skin Skin: no rashes or lesions noted Extremities Pulses: Normal: Right Posterior Tibial Pulse, Left Posterior Tibial Pulse, Right Radial Pulse, Left Radial Pulse Lower Extremity Edema: None: Bilateral Psych Psychological: normal affect Supplemental Info Heart catheterization from February 2017 demonstrated a left main coronary artery which is normal short LAD which is a large vessel with 80% stenosis noted in the proximal to mid LAD, serial 60% stenosis noted mid LAD, second diagonal branch with 60-70% stenosis in the distal vessel, this 60% stenosis in LCx, and no significant stenosis in the RCA. His ejection fraction is noted to be preserved. He angioplasty and stenting of the proximal LAD with a 3.1 x 18 mm resolute stent in the distal vessel with 2.5 x 12 mm resolute stents. Assessment AND Plan 1. Atherosclerosis of [place] coronary artery of [place] heart without angina pectoris I25.10 [id number] LAD w/ 3.0 x 18 mm Resolute and Mid LAD w/ 2.5 x 12 mm Resolute 03/01/2017 Plan - MERCEDES Haley Patient denies any chest pain, arm pain, jaw pain, neck pain, shortness of breath, or fatigue suggestive of angina at this time. We will continue to monitor this. We will not make any medication regimen changes and will continue risk factor modification. He states he was told by prescribing shank taper that his lisinopril was only intended for 6 months post stenting. Thus, he is no longer on this medication. 2. History of coronary artery stent placement Z95.5 BSN-LHN-Yawm LAD w/ 3.0 x 18 mm Resolute and Mid LAD w/ 2.5 x 12 mm Resolute 03/01/2017 @ [facility]/ MERCEDES Duran He will continue current treatment plan as outlined above. 3. Essential (primary) hypertension I10 MERCEDES Duran Patient's blood pressure is well-controlled today in the office. We will continue to monitor this. We will not make any medication regimen changes. 4. Pure hypercholesterolemia E78.00 MERCEDES Duran This is managed by primary care physician. He will continue with current statin medication. 5. Cigarette nicotine dependence without complication F17.210 MERCEDES Duran Patient continues to smoke. He received extensive education regarding the health benefits of smoking cessation. We will continue to support and encourage smoking cessation. Plan Detail Additional Comments - Melissa Carrasco NP-C Discussed the above patient with Dr. Thurston, he agrees with the plan of care. Thank you for allowing us to participate in the patients plan of care, if you have any questions please do not hesitate to call. This note was generated using a voice recognition system and there may be incorrect words, spelling or punctuation that were not noted when reviewing the office note prior to saving. Follow Up 6 Months (GANG TAILER) Coding Level of Care Code Off vis,est,level 3 Diagnoses Atherosclerosis of [place] coronary artery of [place] heart without angina pectoris I25.10 Coronary Disease-Associated Artery/Lesion type: [place] artery History of coronary artery stent placement Z95.5 Essential (primary) hypertension I10 Pure hypercholesterolemia E78.00 Cigarette nicotine dependence without complication F17.210 Nicotine product type: cigarettes Substance use status: uncomplicated Coding Level of Care Code Off vis,est,level 3 Diagnoses Atherosclerosis of [place] coronary artery of [place] heart without angina pectoris I25.10 Coronary Disease-Associated Artery/Lesion type: [place] artery History of coronary artery stent placement Z95.5 Essential (primary) hypertension I10 Pure hypercholesterolemia E78.00 Cigarette nicotine dependence without complication F17.210 Nicotine product type: cigarettes Substance use status: uncomplicated 11/29/17 0941 <Electronically signed by Melissa GOLDC> Date Melissa Crarasco [employer] 11/29/17 1257<Electronically signed by Kulwant Thurston MD> Cosigner Signature: Date (if applicable) Kulwant Thurston MD CC: Bobby Murillo MD CBC W/DIFF, AUTOMATED Collected: 10/20/2017 Status: F Source: [place] 9:47 AM [facility] REPOSITORY TYPE CODE TESTS RESULT OUT OF RANGE REFERENCE UNITS LAB L100.1000 4.4-11.0 K/mm3 Normal WBC 8.7 LAB L100.1200 4.6-6.2 M/mm3 Normal RBC 4.78 LAB L100.1300 13.0-16.5 g/dl Normal HGB 14.4 LAB L100.1400 40-54 % Normal HCT 43.0 LAB L100.1500 80-94 fL Normal MCV 90.0 LAB L100.1600 27.0-32.0 pg Normal MCH 30.1 LAB L100.1700 32-36 g/gl Normal MCHC 33.5 LAB L100.1810 11.6-14.6 % Normal RDW CV 14.3 LAB L100.1820 35.1-43.9 fl High RDW SD 46.9 LAB L100.1900 150-450 K/mm3 Normal PLT 334 LAB L100.2000 6.2-12.0 fl Normal MPV 9.7 LAB L100.2100 47-70 % Normal NEUT% 57.4 LAB L100.2200 19-41 % Normal LY% 24.5 LAB L100.2300 0-10 % Normal MONO% 8.9 LAB L100.2400 0-5 % High EO% 8.5 LAB L100.2500 0-1 % Normal BASO% 0.5 LAB L100.2550 0.0-0.9 % Normal IM GRAN % 0.200 Result Comment: IG% - Immature Granulocytes (promyelocytes, myelocytes and metamyelocytes) > 1% indicates that a LEFT SHIFT is Present. LAB L100.2620 2.0-7.7 X10 3/uL Normal Absolute Neut 5.0 LAB L100.2720 0.83-4.51 X10 3/ul Normal Absolute Lymph 2.14 Performed By: #### L100.0100 #### [facility] [address] [place], [address] COMPREHENSIVE METABOLIC Collected: 10/20/2017 Status: F Source: [facility] 9:47 AM [facility] REPOSITORY TYPE CODE TESTS RESULT OUT OF RANGE REFERENCE UNITS LAB L501.0100 74-106 mg/dL Normal GLU 98 Result Comment: Please note revised GLUCOSE reference range effective 2017. LAB L501.1000 7-18 mg/dL Normal BUN 13 LAB L501.1100 0.70-1.30 mg/dL Normal CREAT,SERUM 1.12 Result Comment: The validity of the calculated GFR AND GFRAA in patients over 70 years has not been determined. Clinical correlation is essential. LAB L501.1110 >60 mL/min Normal EST GFR 73 Result Comment: Non- GFR Calc LAB L501.1115 >60 mL/min Normal EST GFR - AA 88 Result Comment: GFR Calc LAB L501.1300 10-20 RATIO Normal BUN/CRE 11.6 LAB L501.1500 6.4-8.2 g/dL T Normal PROT 6.7 LAB L501.1800 3.2-5.0 g/dL Normal ALB 3.3 LAB L501.1950 2.2-4.2 g/dL Normal GLOB 3.4 LAB L501.2000 0.9-2.4 RATIO Normal A/G 1.0 LAB L501.2200 8.5-10.1 mg/dL CA Normal 8.5 LAB L501.4100 15-37 U/L Low AST 14 LAB L501.4305 45-117 U/L Normal ALK P 72 LAB L501.4405 16-61 U/L Normal ALT 29 LAB L501.4600 0.20-1.00 mg/dL T Normal BILI 0.60 LAB L501.5300 136-145 mmol/L NA Normal 142 LAB L501.5600 3.5-5.1 mmol/L K Normal 5.0 LAB L501.5900 98-107 mmol/L CL Normal 107 LAB L501.6100 21.0-32.0 mmol/L Normal CO2 29.0 LAB L501.6200 5-15 Normal GAP 6 Performed By: #### L500.4050, L501.9520 #### [facility] [address] [facility] [facility] [place], [place], [id number] THYROID STIM HORMONE Collected: 10/20/2017 Status: F Source: [facility] (TSH) 9:47 AM [facility] REPOSITORY TYPE CODE TESTS RESULT OUT OF RANGE REFERENCE UNITS LAB L501.9520 0.358-3.74 uIU/mL High TSH 4.31 Performed By: #### L500.4050, L501.9520 #### [facility] [address] [place], [place], [id number] VITAMIN D,25 HYDROXY Collected: 10/20/2017 Status: F Source: [place] 9:47 AM [facility] REPOSITORY TYPE CODE TESTS RESULT OUT OF REFERENCE UNITS RANGE LAB L506.1000 29.95-100.01 ng/mL Low Vitamin D 18.0 25-OH Result Comment: Vitamin D 25(OH) Status Range Deficiency <20 ng/mL (50nmol/L) Insuffciency 20 - 30 ng/mL (50 - 75 nmol/L) Sufficiency 30 - 100 ng/mL (75 - 250 nmol/L) Toxicity >100 ng/mL (>250 nmol/L) Performed By: #### L506.1000 #### [facility] [address] [place], [address] ABDOMEN/PELVIS WITH Observed: 09/27/2017 Status: F Source: [place] CONTRAST 10:40 AM [facility] REPOSITORY [facility] Imaging Services [address] [place] [address] Abdomen/Pelvis WITH Contrast MR#: [id number] Acct: [id number] Name: EVARISTO HAYNES Rep #: [id number] : 1965 M 52 From: Khurram Owen PCP: Bobby Murillo MD, Chi Status: REG CLI Study: Abdomen/Pelvis WITH Contrast Date of Exam: 09/27/17 Exam# [id number] Ordering Dr: Bobby Murillo MD STUDY: CT ABDOMEN AND PELVIS WITH CONTRAST REASON FOR EXAM: Male, 52 years old. LLQ PAIN. Prior colectomy d/t diverticulitis and appendectomy. RADIATION DOSAGE (If Supplied By Facility): CTDIvol = ( 11.50 ) mGy, DLP = ( 949.60 ) mGycm TECHNIQUE: Transaxial images were obtained from the dome of the diaphragm to the symphysis pubis with oral contrast. 100ml ml of Isovue 300 contrast was administered. Sagittal and coronal images were reconstructed. Individualized dose optimization techniques were used for this CT. COMPARISON: January 02, 2014 FINDINGS: The visualized lung bases are unremarkable. The visualized portions of the heart are within normal limits. Normal liver. Normal gallbladder and extrahepatic biliary system. Normal spleen. Normal pancreas. Normal bilateral adrenal glands. Normal right kidney. Normal left kidney. Normal visualized stomach. Normal small intestine. There are multiple colonic diverticula consistent with diverticulosis. There are surgical sutures at the sigmoid. There are surgical clips in the region of the appendix consistent with a prior appendectomy. There is diffuse atherosclerotic calcification of the abdominal aorta, without a demonstrated aneurysm. Normal inferior vena cava. Normal retroperitoneum. Normal urinary bladder. There is a left-sided inguinal hernia containing adipose tissue. There are diffuse degenerative changes of the visualized lumbar spine. CT/Abdomen/Pelvis WITH Contrast IMPRESSION: No acute intra-abdominal or intrapelvic abnormality. Sigmoid postoperative changes. Electronically Signed: Khurram Owen MD at 13:46 EDT Tel , Service support , CC: Bobby Murillo MD Supervisor Steffen House: Signed CBC W/DIFF, AUTOMATED Collected: 09/27/2017 Status: F Source: [place] 10:10 AM [facility] REPOSITORY TYPE CODE TESTS RESULT OUT OF RANGE REFERENCE UNITS LAB L100.1000 4.4-11.0 K/mm3 Normal WBC 9.8 LAB L100.1200 4.6-6.2 M/mm3 Normal RBC 5.19 LAB L100.1300 13.0-16.5 g/dl Normal HGB 15.5 LAB L100.1400 40-54 % Normal HCT 46.6 LAB L100.1500 80-94 fL Normal MCV 89.8 LAB L100.1600 27.0-32.0 pg Normal MCH 29.9 LAB L100.1700 32-36 g/gl Normal MCHC 33.3 LAB L100.1810 11.6-14.6 % Normal RDW CV 14.0 LAB L100.1820 35.1-43.9 fl High RDW SD 46.0 LAB L100.1900 150-450 K/mm3 Normal PLT 285 LAB L100.2000 6.2-12.0 fl Normal MPV 9.3 LAB L100.2100 47-70 % Normal NEUT% 62.2 LAB L100.2200 19-41 % Normal LY% 19.8 LAB L100.2300 0-10 % Normal MONO% 8.8 LAB L100.2400 0-5 % High EO% 8.6 LAB L100.2500 0-1 % Normal BASO% 0.4 LAB L100.2550 0.0-0.9 % Normal IM GRAN % 0.200 Result Comment: IG% - Immature Granulocytes (promyelocytes, myelocytes and metamyelocytes) > 1% indicates that a LEFT SHIFT is Present. LAB L100.2620 2.0-7.7 X10 3/uL Normal Absolute Neut 6.1 LAB L100.2720 0.83-4.51 X10 3/ul Normal Absolute Lymph 1.93 Performed By: #### L100.0100 #### [facility] [address] [place], [address] COMPREHENSIVE METABOLIC Collected: 09/27/2017 Status: F Source: [facility] 10:10 AM [facility] REPOSITORY TYPE CODE TESTS RESULT OUT OF RANGE REFERENCE UNITS LAB L501.0100 74-106 mg/dL High GLU 118 Result Comment: Fasting Glucose result from 100 to 125 mg/dL suggests IMPAIRED HOMEOSTASIS per A.D.A. criteria. Please note revised GLUCOSE reference range effective 2017. LAB L501.1000 7-18 mg/dL High BUN 19 LAB L501.1100 0.70-1.30 mg/dL Normal CREAT,SERUM 1.12 Result Comment: The validity of the calculated GFR AND GFRAA in patients over 70 years has not been determined. Clinical correlation is essential. LAB L501.1110 >60 mL/min Normal EST GFR 73 Result Comment: Non- GFR Calc LAB L501.1115 >60 mL/min Normal EST GFR - AA 88 Result Comment: GFR Calc LAB L501.1300 10-20 RATIO Normal BUN/CRE 17.0 LAB L501.1500 6.4-8.2 g/dL T Normal PROT 7.5 LAB L501.1800 3.2-5.0 g/dL Normal ALB 3.6 LAB L501.1950 2.2-4.2 g/dL Normal GLOB 3.9 LAB L501.2000 0.9-2.4 RATIO Normal A/G 0.9 LAB L501.2200 8.5-10.1 mg/dL CA Normal 8.6 LAB L501.4100 15-37 U/L Normal AST 20 LAB L501.4305 45-117 U/L Normal ALK P 101 LAB L501.4405 16-61 U/L Normal ALT 33 LAB L501.4600 0.20-1.00 mg/dL T Normal BILI 0.40 LAB L501.5300 136-145 mmol/L NA Normal 138 LAB L501.5600 3.5-5.1 mmol/L K Normal 4.4 LAB L501.5900 98-107 mmol/L High CL 108 LAB L501.6100 21.0-32.0 mmol/L Normal CO2 24.0 LAB L501.6200 5-15 Normal GAP 6 Performed By: #### L500.4050, L501.9520 #### [facility] [address] [place], [address] THYROID STIM HORMONE Collected: 09/27/2017 Status: F Source: [place] (TSH) 10:10 AM [facility] REPOSITORY TYPE CODE TESTS RESULT OUT OF RANGE REFERENCE UNITS LAB L501.9520 0.358-3.74 uIU/mL High TSH 7.21 Performed By: #### L500.4050, L501.9520 #### [facility] [address] [place], [address] CBC W/DIFF, AUTOMATED Collected: 07/20/2017 Status: F Source: [place] 11:15 AM [facility] REPOSITORY TYPE CODE TESTS RESULT OUT OF RANGE REFERENCE UNITS LAB L100.1000 4.4-11.0 K/mm3 Normal WBC 9.0 LAB L100.1200 4.6-6.2 M/mm3 Normal RBC 4.78 LAB L100.1300 13.0-16.5 g/dl Normal HGB 14.1 LAB L100.1400 40-54 % Normal HCT 43.1 LAB L100.1500 80-94 fL Normal MCV 90.2 LAB L100.1600 27.0-32.0 pg Normal MCH 29.5 LAB L100.1700 32-36 g/gl Normal MCHC 32.7 LAB L100.1810 11.6-14.6 % Normal RDW CV 14.0 LAB L100.1820 35.1-43.9 fl High RDW SD 45.9 LAB L100.1900 150-450 K/mm3 Normal PLT 311 LAB L100.2000 6.2-12.0 fl Normal MPV 9.0 LAB L100.2100 47-70 % Normal NEUT% 61.2 LAB L100.2200 19-41 % Normal LY% 22.0 LAB L100.2300 0-10 % Normal MONO% 8.0 LAB L100.2400 0-5 % High EO% 8.1 LAB L100.2500 0-1 % Normal BASO% 0.6 LAB L100.2550 0.0-0.9 % Normal IM GRAN % 0.100 Result Comment: IG% - Immature Granulocytes (promyelocytes, myelocytes and metamyelocytes) > 1% indicates that a LEFT SHIFT is Present. LAB L100.2620 2.0-7.7 X10 3/uL Normal Absolute Neut 5.5 LAB L100.2720 0.83-4.51 X10 3/ul Normal Absolute Lymph 1.97 Performed By: #### L100.0100 #### [facility] [address], [address] COMPREHENSIVE METABOLIC Collected: 07/20/2017 Status: F Source: [facility] 11:15 AM [facility] REPOSITORY TYPE CODE TESTS RESULT OUT OF RANGE REFERENCE UNITS LAB L501.0100 74-106 mg/dL High GLU 118 Result Comment: Fasting Glucose result from 100 to 125 mg/dL suggests IMPAIRED HOMEOSTASIS per A.D.A. criteria. Please note revised GLUCOSE reference range effective 2017. LAB L501.1000 7-18 mg/dL Normal BUN 18 LAB L501.1100 0.70-1.30 mg/dL Normal CREAT,SERUM 1.11 Result Comment: The validity of the calculated GFR AND GFRAA in patients over 70 years has not been determined. Clinical correlation is essential. LAB L501.1110 >60 mL/min Normal EST GFR 74 Result Comment: Non- GFR Calc LAB L501.1115 >60 mL/min Normal EST GFR - AA 89 Result Comment: GFR Calc LAB L501.1300 10-20 RATIO Normal BUN/CRE 16.2 LAB L501.1500 6.4-8.2 g/dL T Normal PROT 7.1 LAB L501.1800 3.2-5.0 g/dL Normal ALB 3.5 LAB L501.1950 2.2-4.2 g/dL Normal GLOB 3.6 LAB L501.2000 0.9-2.4 RATIO Normal A/G 1.0 LAB L501.2200 8.5-10.1 mg/dL Low CA 8.3 LAB L501.4100 15-37 U/L Low AST 14 LAB L501.4305 45-117 U/L Normal ALK P 77 LAB L501.4405 16-61 U/L Normal ALT 31 LAB L501.4600 0.20-1.00 mg/dL T Normal BILI 0.40 LAB L501.5300 136-145 mmol/L NA Normal 138 LAB L501.5600 3.5-5.1 mmol/L K Normal 4.7 LAB L501.5900 98-107 mmol/L CL Normal 105 LAB L501.6100 21.0-32.0 mmol/L Normal CO2 24.0 LAB L501.6200 5-15 Normal GAP 9 Performed By: #### L500.4050, L501.9520 #### [facility] [address] [place], [place], [address] THYROID STIM HORMONE Collected: 07/20/2017 Status: F Source: [place] (TSH) 11:15 AM [facility] REPOSITORY TYPE CODE TESTS RESULT OUT OF RANGE REFERENCE UNITS LAB L501.9520 0.358-3.74 uIU/mL High TSH 4.95 Performed By: #### L500.4050, L501.9520 #### [facility] [address] [place], [place], [address] VITAMIN D,25 HYDROXY Collected: 07/20/2017 Status: F Source: [place] 11:15 AM [facility] REPOSITORY TYPE CODE TESTS RESULT OUT OF REFERENCE UNITS RANGE LAB L506.1000 29.95-100.01 ng/mL Low Vitamin D 23.8 25-OH Result Comment: Vitamin D 25(OH) Status Range Deficiency <20 ng/mL (50nmol/L) Thiagociency 20 - 30 ng/mL (50 - 75 nmol/L) Sufficiency 30 - 100 ng/mL (75 - 250 nmol/L) Toxicity >100 ng/mL (>250 nmol/L) Performed By: #### L506.1000 #### [facility] [address] [place], [address] THYROID STIM HORMONE Collected: 05/31/2017 Status: F Source: [place] (TSH) 11:52 AM [facility] REPOSITORY TYPE CODE TESTS RESULT OUT OF RANGE REFERENCE UNITS LAB L501.9520 0.358-3.74 uIU/mL Normal TSH 3.20 Performed By: #### L501.9520 #### [facility] [address] [place], [address] CARDIOLOGY VISIT Observed: 05/26/2017 Status: F Source: [place] REPORT 11:10 AM [facility] REPOSITORY [facility] [address] [place] [address] OFFICE VISIT Date of Service: 05/26/17 MR#: [id number] Acct: [id number] Name: EVARISTO HAYNES Rep #: [id number] : 1965 Provider: Kulwant Thurston MD Age/Sex: 52/M Location: [facility] Status: Signed HPI HPI Chief Complaint: Initial visit. Details: EVARISTO HAYNES, is a 52 M who presents to the office today for an initial visit. He had presented to [facility] in February of this year with chest discomfort and was noted to have abnormal cardiac troponins consistent with an non- ST elevation myocardial infarction. He was transferred from [facility] to [facility]. He underwent a cardiac catheterization which demonstrated a left main coronary artery which was normal and short left anterior descending artery which is a large vessel with a 80% stenosis noted in the proximal to mid left anterior descending artery serial 60% stenosis were noted in the mid LAD. The second diagonal branch had a 60-70% stenosis in the distal vessel had a long 60% stenosis circumflex artery was a long dominant vessel with no significant stenosis in the right coronary artery was nondominant with luminal irregularities. Preserved ejection fraction was noted. He underwent angioplasty and stenting of the proximal left anterior descending artery with a 3.0 18 mm resolute stent in the distal vessel with a 2.5 12 mm resolute stents. His ejection fraction was noted to be preserved he has been back on his medications and has returned back to work. He denies any neck arm or jaw discomfort suggest angina no dizziness no diaphoresis no near syncope or syncope. He has also tolerated his medications. His physical exam demonstrates clear lung berg regular rate and rhythm and no pedal edema. Intake Vital Signs05/26/17 Body Mass Index (BMI) 33.0 Intake Visit Reasons: PCP ref'd for Hx of stents Allergies Sulfa (Sulfonamide Antibiotics) Allergy (Verified 01/02/14 20:46) Other Medications aspirin 81 mg tablet,delayed release PO 05/19/17 [History Confirmed 05/26/17] atorvastatin 40 mg tablet 40 mg PO QHS tab 05/19/17 [History Confirmed 05/26/17] bupropion HCl SR 150 mg tablet,12 hr sustained-release 150 mg PO BID 05/19/17 [History Confirmed 05/26/17] cholecalciferol (vitamin D3) 1,000 unit tablet 1,000 unit PO BID tab 05/19/17 [History Confirmed 05/26/17] duloxetine 60 mg capsule,delayed release 60 mg PO QDAY 05/19/17 [History Confirmed 05/26/17] lisinopril 20 mg tablet 20 mg PO BID tab 05/19/17 [History Confirmed 05/26/17] metoprolol tartrate 25 mg tablet 25 mg PO BID 05/19/17 [History Confirmed 05/26/17] ticagrelor 90 mg tablet 90 mg PO BID 05/19/17 [History Confirmed 05/26/17] levothyroxine 75 mcg capsule 75 mcg PO QDAY cap 05/26/17 [History Confirmed 05/26/17] tamsulosin 0.4 mg capsule 0.4 mg PO QDAY 05/26/17 [History Confirmed 05/26/17] Ejection fraction %: 60 to 64 [facility] Medical History Non-ST elevation (NSTEMI) myocardial infarction (Chronic 02/2017) Hypertension (Chronic) Hyperlipidemia (Chronic) Nicotine dependence (Chronic) Obesity (Chronic) Atherosclerosis of coronary artery of [place] heart without angina pectoris (Chronic) Anxiety and depression (Chronic) Diverticulitis (Chronic) Hypothyroidism (Chronic) Migraine (Chronic) Surgical History History of coronary artery stent placement (Chronic 03/01/17) History of appendectomy (Chronic) History of colectomy (Chronic) History of tonsillectomy (Chronic) Family History Father CAD (coronary artery disease) coronary stents Social History Smoking Status: Current every day smoker tobacco type: cigarettes caffeine: Yes Type: carbonated beverages Number of servings: 4 ROS Const Const: Negative for fatigue, body ache, fever(s), chills, night sweats, daytime sleepiness, difficulty sleeping, excessive sweating, weight gain, weight loss, increased appetite, poor appetite, anorexia or other Eyes Eyes: Negative for blind spots, loss of peripheral vision, transient loss of vision, change in vision, floaters, tunnel vision or other Cardio Chest Pain: No Resp Respiratory: Negative for SOB with activity, SOB at rest, SOB orthopnea\SOB lying down, Cough, Coughing up blood/hemoptysis, chest congestion, pain on inspiration, snoring, stridor, wheezing, crackles, paroxysmal nocturnal dyspnea or other GI GI: Negative nausea, vomiting, heartburn, constipation, belching, bloating, cramping, vomiting blood/hematemesis, bright, red blood in stools, black,tarry stools, loose stools, Difficulty Swallowing or other Skin Skin: Negative redness, non-healing lesions, rash, unusual bruising, skin ulcer, wounds, jaundice or other Toan Hematologic/Lymphatic: Negative for easy bleeding, easy bruising, enlarged lymph nodes or other Endo Endo: Negative for fatigue or excessive sweating Allergy Allergy/Immunology: Negative for rash Cardiology Exam Const Appearance: cooperative, healthy appearing, well developed, well groomed and no acute distress Nutritional Appearance: well nourished and average body habitus Orientation: alert, awake and oriented x3 Head Head: normal to inspection, normocephalic and atraumatic Ears: hearing grossly normal bilaterally and external ears normal Nose: external nose normal, nasal mucous membranes and turbinates normal, nares normal, septum normal, no nasal discharge Face and Sinus: face symmetric Mouth: oral mucosae normal, tongue normal, oropharynx normal and moist mucous membranes Teeth and gingiva: dentition normal Throat: posterior oropharynx normal, tonsils normal and uvula midline Eyes General: appearance normal, both eyes and all related structures Eyelids: eyelids normal Conjunctivae: conjunctivae normal Pupils: PERRL, normal by confrontation and accommodation normal EOM: EOM intact bilaterally Neck Neck: normal visual inspection, trachea midline and no JVD JVD: +5 Carotids: normal carotid upstroke and bounding pulses Chest Chest inspection: normal inspection of the chest, symmetric chest movement and normal respiratory effort Auscultation: Bilateral: Clear to Auscultation Cardio Palpation: normal PMI Rate: regular rate Rhythm: regular rhythm Heart sounds: S1 normal, S2 normal and normal, physiologic split S2; negative rub, gallop or murmur GI GI: normal to inspection, soft, no hepatosplenomegaly and bowel sounds present Neuro General: alert, awake, oriented x3, no focal sensory deficit, gait normal and moves all extremities Skin Skin: no rashes or lesions noted Extremities Pulses: Normal: Right Femoral Pulse, Left Femoral Pulse, Right Dorsalis Pedis Pulse, Left Dorsalis Pedis Pulse, Right Posterior Tibial Pulse, Left Posterior Tibial Pulse, Right Radial Pulse, Left Radial Pulse Lower Extremity Edema: None: Bilateral Musculoskel Musculoskeletal: No joint tenderness Psych Psychological: normal affect Assessment AND Plan 1. Non-ST elevation (NSTEMI) myocardial infarction I21.4 Plan He is status post non-ST elevation myocardial infarction in February of this year and is back doing well he will remain on his aspirin beta-mary jo and Brilinta. No other changes will be made. 2. Essential hypertension I10 Plan His blood pressure appears to be under good control on the current medical regimen which will be continued. 3. Pure hypercholesterolemia E78.00; E78.0 Plan His most recent lipid profile is not immediately available to us but he is on a high intensity statin. If you be so kind as to check this I will be most grateful. Thank you for allowing me to participate in the care of your patient. 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) Coding Level of Care Code Off vis,new,level 4 Diagnoses Non-ST elevation (NSTEMI) myocardial infarction I21.4 Essential hypertension I10 Hypertension type: essential hypertension Pure hypercholesterolemia E78.00; E78.0 Hyperlipidemia type: pure hypercholesterolemia Coding Level of Care Code Off vis,new,level 4 Diagnoses Non-ST elevation (NSTEMI) myocardial infarction I21.4 Essential hypertension I10 Hypertension type: essential hypertension Pure hypercholesterolemia E78.00; E78.0 Hyperlipidemia type: pure hypercholesterolemia 05/26/17 1110 <Electronically signed by Kulwant Thurston MD> Date Kulwant Thurston MD Cosigner Signature: Date (if applicable) CC: Bobby Murillo MD CARDIOLOGY VISIT Observed: 05/26/2017 Status: F Source: [facility] REPORT 10:52 AM [facility] REPOSITORY [facility] [address] [place] [address] OFFICE VISIT Date of Service: 05/26/17 MR#: [id number] Acct: [id number] Name: EVARISTO HAYNES Rep #: [id number] : 1965 Provider: Kulwant Thurston MD Age/Sex: 52/M Location: [facility] Status: Signed HPI HPI Details: EVARISTO HAYNES, is a 52 M who presents to the office today for Intake Vital Signs05/26/17 Height 6 ft 05/26/17 Weight: 244 lb 05/26/17 Body Mass Index (BMI) 33.0 05/26/17 Blood Pressure 110/62 05/26/17 Respiratory Rate 18 05/26/17 Pulse Rate 64 Intake Visit Reasons: PCP ref'd for Hx of stents Allergies Sulfa (Sulfonamide Antibiotics) Allergy (Verified 01/02/14 20:46) Other Medications aspirin 81 mg tablet,delayed release PO 05/19/17 [History Confirmed 05/26/17] atorvastatin 40 mg tablet 40 mg PO QHS tab 05/19/17 [History Confirmed 05/26/17] bupropion HCl SR 150 mg tablet,12 hr sustained-release 150 mg PO BID 05/19/17 [History Confirmed 05/26/17] cholecalciferol (vitamin D3) 1,000 unit tablet 1,000 unit PO BID tab 05/19/17 [History Confirmed 05/26/17] duloxetine 60 mg capsule,delayed release 60 mg PO QDAY 05/19/17 [History Confirmed 05/26/17] lisinopril 20 mg tablet 20 mg PO BID tab 05/19/17 [History Confirmed 05/26/17] metoprolol tartrate 25 mg tablet 25 mg PO BID 05/19/17 [History Confirmed 05/26/17] ticagrelor 90 mg tablet 90 mg PO BID 05/19/17 [History Confirmed 05/26/17] levothyroxine 75 mcg capsule 75 mcg PO QDAY cap 05/26/17 [History Confirmed 05/26/17] tamsulosin 0.4 mg capsule 0.4 mg PO QDAY 05/26/17 [History Confirmed 05/26/17] PFSH Medical History Non-ST elevation (NSTEMI) myocardial infarction (Chronic 02/2017) Hypertension (Chronic) Hyperlipidemia (Chronic) Nicotine dependence (Chronic) Obesity (Chronic) Atherosclerosis of coronary artery of [place] heart without angina pectoris (Chronic) Anxiety and depression (Chronic) Diverticulitis (Chronic) Hypothyroidism (Chronic) Migraine (Chronic) Surgical History History of coronary artery stent placement (Chronic 03/01/17) History of appendectomy (Chronic) History of colectomy (Chronic) History of tonsillectomy (Chronic) Family History Father CAD (coronary artery disease) coronary stents Social History Smoking Status: Current every day smoker tobacco type: cigarettes caffeine: Yes Type: carbonated beverages Number of servings: 4 ROS Const Const: Positive for other (Continues to smoke 0.5 PPD); negative for fatigue, weakness, difficulty sleeping, frequent falls, headache(s) or excessive sweating Eyes Eyes: Negative for loss of peripheral vision, transient loss of vision, blurry vision or double vision ENT ENT: Negative for headache(s), dizziness, Nosebleed/epistaxis or balance problems Cardio Chest Pain: Yes Frequency: daily Character: other (pinging pain), sharp Onset: at rest Location: left chest (Left sternal) Duration: brief Edema: None Muscle aches with walking: None Additional Details: New left sided chest discomfort 6.5/10 on pain scale, lasting only a few seconds Resp Respiratory: Negative for SOB with activity, SOB at rest, SOB orthopnea\SOB lying down or paroxysmal nocturnal dyspnea GI GI: Negative nausea or heartburn : Negative for hematuria Musc Musc: Negative for muscle aches/ myalgia, muscle weakness, joint pain or balance problems Skin Skin: Negative non-healing lesions, unusual bruising or rash Neuro Neuro: Negative for weakness, frequent falls, blurry vision, headache(s), dizziness, lightheadedness, orthostatic symptoms or double vision Toan Hematologic/Lymphatic: Negative for easy bruising Endo Endo: Negative for fatigue, excessive sweating or increased thirst/drinking Psych Psych: Negative for anxiety or depression Allergy Allergy/Immunology: Negative for hives, Negative for rash Coding Level of Care Code Off vis,est,level 3 Coding Level of Care Code Off vis,est,level 3 05/26/17 1052 <Electronically signed by Kulwant Thurston MD> Date Kulwant Thurston MD Cosigner Signature: Date (if applicable) CC: Bobby Murillo MD CBC W/DIFF, AUTOMATED Collected: 04/19/2017 Status: F Source: [facility] 3:36 PM [facility] REPOSITORY TYPE CODE TESTS RESULT OUT OF RANGE REFERENCE UNITS LAB L100.1000 4.4-11.0 K/mm3 High WBC 11.7 LAB L100.1200 4.6-6.2 M/mm3 Normal RBC 4.88 LAB L100.1300 13.0-16.5 g/dl Normal HGB 14.7 LAB L100.1400 40-54 % Normal HCT 43.4 LAB L100.1500 80-94 fL Normal MCV 88.9 LAB L100.1600 27.0-32.0 pg Normal MCH 30.1 LAB L100.1700 32-36 g/gl Normal MCHC 33.9 LAB L100.1810 11.6-14.6 % Normal RDW CV 14.3 LAB L100.1820 35.1-43.9 fl High RDW SD 46.1 LAB L100.1900 150-450 K/mm3 Normal PLT 326 LAB L100.2000 6.2-12.0 fl Normal MPV 9.5 LAB L100.2100 47-70 % Normal NEUT% 63.9 LAB L100.2200 19-41 % Normal LY% 22.1 LAB L100.2300 0-10 % Normal MONO% 8.2 LAB L100.2400 0-5 % High EO% 5.1 LAB L100.2500 0-1 % Normal BASO% 0.4 LAB L100.2550 0.0-0.9 % Normal IM GRAN % 0.300 Result Comment: IG% - Immature Granulocytes (promyelocytes, myelocytes and metamyelocytes) > 1% indicates that a LEFT SHIFT is Present. LAB L100.2620 2.0-7.7 X10 3/uL Normal Absolute Neut 7.5 LAB L100.2720 0.83-4.51 X10 3/ul Normal Absolute Lymph 2.58 Performed By: #### L100.0100 #### [facility] [address] [place], [place], [address] COMPREHENSIVE METABOLIC Collected: 04/19/2017 Status: F Source: [facility] 3:36 PM [facility] REPOSITORY TYPE CODE TESTS RESULT OUT OF RANGE REFERENCE UNITS LAB L501.0100 74-106 mg/dL Normal GLU 90 Result Comment: Please note revised GLUCOSE reference range effective 2017. LAB L501.1000 7-18 mg/dL High BUN 20 LAB L501.1100 0.70-1.30 mg/dL Normal CREAT,SERUM 0.93 Result Comment: The validity of the calculated GFR AND GFRAA in patients over 70 years has not been determined. Clinical correlation is essential. LAB L501.1110 >60 mL/min Normal EST GFR 90 Result Comment: Non- GFR Calc LAB L501.1115 >60 mL/min Normal EST GFR - AA 109 Result Comment: GFR Calc LAB L501.1300 10-20 RATIO High BUN/CRE 21.4 LAB L501.1500 6.4-8.2 g/dL T Normal PROT 7.5 LAB L501.1800 3.2-5.0 g/dL Normal ALB 3.9 LAB L501.1950 2.2-4.2 g/dL Normal GLOB 3.6 LAB L501.2000 0.9-2.4 RATIO Normal A/G 1.1 LAB L501.2200 8.5-10.1 mg/dL CA Normal 9.0 LAB L501.4100 15-37 U/L Normal AST 16 LAB L501.4305 45-117 U/L Normal ALK P 69 LAB L501.4405 16-61 U/L Normal ALT 32 Result Comment: Please note revised ALT reference range effective 2017. LAB L501.4600 0.20-1.00 mg/dL Normal T BILI 0.40 LAB L501.5300 136-145 mmol/L Normal NA 136 LAB L501.5600 3.5-5.1 mmol/L Normal K 4.1 LAB L501.5900 98-107 mmol/L Normal CL 104 LAB L501.6100 21.0-32.0 mmol/L Normal CO2 22.0 LAB L501.6200 5-15 Normal GAP 10 Performed By: #### L500.4050, L501.9520, L501.9910 #### [facility] [address] [place], [place], [id number] THYROID STIM HORMONE Collected: 04/19/2017 Status: F Source: [facility] 3:36 PM [facility] REPOSITORY TYPE CODE TESTS RESULT OUT OF RANGE REFERENCE UNITS LAB L501.9520 0.358-3.74 uIU/mL High TSH 5.22 Performed By: #### L500.4050, L501.9520, L501.9910 #### [facility] [address] [facility]. [place], [place], [id number] PSA,TOTAL - ANNUAL Collected: 04/19/2017 Status: F Source: [facility] S[facility]EN 3:36 PM [facility] REPOSITORY TYPE CODE TESTS RESULT OUT OF RANGE REFERENCE UNITS LAB L501.9910 0.00-4.00 ng/mL Normal PSA,TOT 1.96 SCREEN Result Comment: This test was performed using the TPSA assay method for the [employer] chemistry system. Values obtained with different assay methods cannot be used interchangably. When changing PSA assays in the course of monitoring a patient, additional sequential testing should be carried out to confirm baseline values. Performed By: #### L500.4050, L501.9520, L501.9910 #### [facility] [address] [place], [address] VITAMIN D,25 HYDROXY Collected: 04/19/2017 Status: F Source: [facility] 3:36 PM [facility] REPOSITORY TYPE CODE TESTS RESULT OUT OF REFERENCE UNITS RANGE LAB L506.1000 29.95-100.01 ng/mL Low Vitamin D 18.1 25-OH Result Comment: Vitamin D 25(OH) Status Range Deficiency <20 ng/mL (50nmol/L) Insuffciency 20 - 30 ng/mL (50 - 75 nmol/L) Sufficiency 30 - 100 ng/mL (75 - 250 nmol/L) Toxicity >100 ng/mL (>250 nmol/L) Performed By: #### L506.1000 #### [facility] [address] [place], [address] HEPATITIS C ANTIBODIES Collected: 04/19/2017 Status: F Source: [facility] 3:36 PM [facility] REPOSITORY TYPE CODE TESTS RESULT OUT OF RANGE REFERENCE UNITS LAB L3100.0650 0.0-0.9 s/co ratio Normal HEP C AB <0.1 Result Comment: Negative: < 0.8 Indeterminate: 0.8 - 0.9 Positive: > 0.9 The CDC recommends that a positive HCV antibody result be followed up with a HCV Nucleic Acid Amplification test (232115). Performed at: - [facility] [address] [id number] Transplant Surgeon: Catracho Buck PhD, Phone: [phone] Performed By: #### L3100.0625 #### [facility] (refer to report for specific site) refer to report for address and phone number ENDOCRINOLOGY PROGRESS Observed: 03/03/2017 Status: F Source: [place] NOTE 1:16 PM [facility] REPOSITORY [facility] Patient: EVARISTO HAYNES [address] MR#: [id number] [place] [address] : 1965 OrdNevin Daigle: Dept: [facility]OC Loc: 1HEART 180-1 Endocrinology Progress Note Service Dt: 03/03/17 Report#: [id number] Adm Dt: 02/27/17 Dis Dt: 03/03/17 Endocrine Progress Note - Patient Visit Reason Visit Reason: chest pain, nonstemi <Marilu Gutierrez - 03/03/17 13:20> - Chief Complaint Chief Complaint: Chest pain <Marilu Gutierrez - 03/03/17 13:20> - Subjective Narrative HPI/ROS: saw patientthis morning, no acute event over night. he was walking in his room. denied any chest pain, sob, fatigue, sweating or palpitations. <Marilu Gutierrez - 03/03/17 13:20> - I O/Vital Signs I O/VS: Vital Signs Temp 36.3 C L 03/03/17 12:00 Pulse 58 L 03/03/17 12:00 Resp 18 03/03/17 12:00 BP 140/92 H 03/03/17 12:00 Pulse Ox 97 03/03/17 12:00 Intake Output 03/02/17 03/03/17 03/03/17 23:59 11:59 23:59 Intake Total 840 480 240 Output Total 800 1350 Balance 40 -870 240 Intake: Oral 840 480 240 Output: Urine 800 1350 Void 800 1350 <Khoi Das - 03/03/17 16:39> Vital Signs Temp 36.8 C 03/03/17 09:15 Pulse 78 03/03/17 12:00 Resp 18 03/03/17 08:00 BP 155/91 H 03/03/17 09:14 Pulse Ox 95 03/03/17 08:00 Intake Output 03/02/17 03/03/17 03/03/17 23:59 11:59 23:59 Intake Total 840 480 240 Output Total 800 1350 Balance 40 -870 240 Intake: Oral 840 480 240 Output: Urine 800 1350 Void 800 1350 <Marilu Gutierrez - 03/03/17 13:20> - Objective Narrative Patient Exam: Gen: NAD. Speaking in full and complete sentences. Awake and alert HEENT: AT/NC. No facial edema. No nasal drainage. PERRL. Sclera anicteric Neck: No JVD. No masses Cardiovascular: RRR. No murmur, rubs or gallops Lungs: Symmetrical chest expansions. CTAB. No rales, rhonchi or wheezing Abdomen: soft/nontender/nondistended. No masses. No hepatosplenomegaly Neuro: CN grossly intact. Motor grossly symmetric Extremities: 2+ radial pulses. No clubbing, cyanosis or edema Skin: No new lesions or rashes. Good turgor Psychiatric: No hallucinations or delusions. Good eye contact <Horace Gutierrezangela - 03/03/17 13:20> - Lab Diagnostic Data Diagrams: 03/02/17 04:31 03/02/17 04:31 <Khoi Das - 03/03/17 16:39> - Medications Meds: Current Medications Acetaminophen (Tylenol) 650 mg PO Q4 PRN PRN Reason: Pain (mild)/Temp above 38.3 C Last Admin: 03/03/17 09:15 Dose: 650 mg Al Hydrox/Mg Hydrox/Simethicone (Mylanta Ii) 15 ml PO Q4 PRN PRN Reason: Dyspepsia Aspirin (Aspirin, Baby (Chewable)) 81 mg PO DAILY [facility] Last Admin: 03/03/17 09:14 Dose: 81 mg Dextrose (Dextrose Syringe) 25 ml IV Q15M PRN PRN Reason: Hypoglycemia Dextrose (Dextrose Syringe) 50 ml IV Q15M PRN PRN Reason: Hypoglycemia Dextrose (Instant Glucose) 37.5 g PO Q15M PRN PRN Reason: Hypoglycemia Glucagon (Glucagon) 1 mg IM Q15M PRN PRN Reason: Hypoglycemia Guaifenesin/Dextromethorphan (Robitussin-Dm) 5 ml PO Q4 PRN PRN Reason: Cough Hydralazine HCl (Apresoline Inj) 10 mg IV Q6 PRN PRN Reason: BLOOD PRESSURE Last Admin: 03/02/17 23:46 Dose: 10 mg Levothyroxine Sodium (Synthroid) 50 mcg PO QDSYNTH [facility] Last Admin: 03/03/17 04:52 Dose: 50 mcg Lisinopril (Zestril/Prinivil) 20 mg PO Q12 [facility] Last Admin: 03/03/17 09:13 Dose: 20 mg Magnesium Hydroxide (Mom) 2,400 mg PO DAILY PRN PRN Reason: Constipation Melatonin (Melatonin) 3 mg PO QHS PRN PRN Reason: INSOMNIA Metoprolol Tartrate (Lopressor) 25 mg PO Q12 [facility] Last Admin: 03/03/17 09:14 Dose: 25 mg Nitroglycerin (Nitrostat) 400 mcg SL Q5M PRN PRN Reason: Chest Pain Ondansetron HCl (Zofran) 4 mg IV Q6 PRN PRN Reason: Nausea Last Admin: 03/01/17 21:44 Dose: 4 mg Pravastatin Sodium (Pravachol) 40 mg PO SUPPER [facility] Ticagrelor (Brilinta) 90 mg PO Q12 [facility] Last Admin: 03/03/17 09:13 Dose: 90 mg Vitamin D (Vitamin D) 2,000 units.intl PO DAILY [facility] Last Admin: 03/03/17 09:19 Dose: 2,000 units.intl <Marilu Gutierrez - 03/03/17 13:20> Allergies/Adv: Allergies Allergy/AdvReac Type Severity Reaction Status Date / Time Sulfa (Sulfonamide Allergy Agitation Verified 02/27/17 23:25 Antibiotics) <Khoi Das - 03/03/17 16:39> - Assessment/Plan (1) Hypothyroidism Status: Chronic (2) Elevated LDL cholesterol level Status: Chronic (3) Vitamin D deficiency Status: Acute (4) HTN (hypertension) Status: Acute (5) Non-STEMI (non-ST elevated myocardial infarction) Status: Acute <Marilu Gutierrez - 03/03/17 13:16> - Comments Impression Comments: 03/03/17 16:38 Pt seen in am He was discussed with RN Possible discharge today We will make sure that he has prescriptions for Synthroid and vitamin D. <Khoi Das - 03/03/17 16:39> 03/02/17 10:23 Hypothyroidism. TSH is elevated. Free T4 is low-normal. FT3 is normal. thyroid antibodies were negative. cardiac cath shows 80 stenosis in the proximal left descending and 60% stenosis in the mid left descending artery. s/p 2 JENNY. started him on 50mcg levothyroxine daily No evidence for diabetes. A1c is normal. LDL is elevated sec to romero thyroid situation. currently on lipitor 80mg daily due to CAD and High LDL Diverticulosis-constipation. Possibly hypothyroidism is contributing to this problem as well. NSTEMI. S/P 2 JENNY, on dual-antiplatelet therapy and high potency statin Vit D def. continue replacemnet 03/03/17 13:18 Hypothyroidism. TSH is elevated. Free T4 is low-normal. FT3 is normal. thyroid antibodies were negative. cardiac cath shows 80 stenosis in the proximal left descending and 60% stenosis in the mid left descending artery. s/p 2 JENNY. continue 50mcg levothyroxine daily No evidence for diabetes. A1c is normal. LDL is elevated sec to romero thyroid situation. currently on pravastatin 40mg daily due to CAD and High LDL Diverticulosis-constipation. Possibly hypothyroidism is contributing to this problem as well. NSTEMI. S/P 2 JENNY, on dual-antiplatelet therapy and statin Vit D def. continue replacemnet <Marilu Gutierrez - 03/03/17 13:20> DISCHARGE SUMMARY Observed: 03/03/2017 Status: F Source: [place] 12:49 PM [facility] Patient: EVARISTO HAYNES [address] MR#: [id number] [place], [place] [address] : 1965 OrdNevin Daigle: Dept: [facility]OC Loc: 1HEART 180-1 Discharge Summary Service Dt: 03/03/17 Report#: [id number] Adm Dt: 02/27/17 Dis Dt: Discharge Summary - Principal/Other Diagnoses (1) Non-STEMI (non-ST elevated myocardial infarction) Status: Acute Current Visit: Yes (2) Hypothyroidism Status: Chronic Current Visit: Yes (3) Family history of coronary artery disease Status: Chronic Current Visit: Yes (4) HTN (hypertension) Status: Acute Current Visit: Yes (5) Tobacco use disorder Status: Acute Current Visit: Yes - Principal/Other Procedures Procedures: Echocardiogram Telemetry monitoring Drug-eluting stent to the left anterior descending artery ?2 - Consultations Consulting Specialty: Endocrinology, Other (Interventional cardiology) - Narrative Summary Hospital Course: 52-year-old male presented to the [facility] department at [facility] with acute onset of chest pain and hypertension. Patient ruled in for non-ST elevation AR via enzymes and was transferred to [facility]. Patient to be at high risk for cardiac vascular morbidity and mortality with the elevated troponin and therefore cardiac catheterization was suggested. Cardiac catheterization revealed severe disease in left anterior descending artery patient successfully underwent implantation of 2 drug-eluting stents in the left anterior descending artery. Post intervention course was uncomplicated except for difficult to control blood pressure and lisinopril was added to his medical regimen and titrated up along with continuing metoprolol. BP is better today no be discharged to home. Discussed need for on an interrupted dual antiplatelet therapy for at least one year. Discussed importance of taking statin medication but she declined atorvastatin therefore started on pravastatin). Discussed importance of good blood pressure control stopping smoking. Patient also has been restarted on levothyroxine by endocrinology for his hypothyroidism which was untreated on admission. - Vital Signs Vitals: Vital Signs (last response) Temperature 36.8 C 03/03/17 09:15 Pulse/Heart Rate 78 03/03/17 12:00 Respiratory Rate 18 03/03/17 08:00 Blood Pressure 155/91 H 03/03/17 09:14 O2 Sat by Pulse Oximetry 95 03/03/17 08:00 - Physical Examination General appearance: alert, in no apparent distress, obese Limitations: Positive: no limitations Head: Positive: normal inspection Neck: Positive: no JVD Respiratory: Positive: normal lung sounds bilaterally Cardiovascular: Positive: regular rate. Negative: systolic murmur, JVD GI/Abdominal: Positive: soft, nontender Extremities: Positive: normal inspection, no edema, no cellulitis, other (Right groin catheter site okay) Neurological: Positive: alert, oriented X3 Integumentary: Positive: warm, dry - Disposition Disposition: TO HOME - Other Patient Information Activity: Activity Ordered Up ad Sara Walk 30 minutes daily with eventual referral to cardiac rehabilitation Diet: Diet Regular Diet - Consistency Start WedMar 01 Lunch Low in bad saturated fat Follow Up Plan: May return to work in one week Referrals: Allen Biggs DO [Active] - 2 weeks - Discharge Medications Meds: Home Medications Medication Instructions Recorded Aspirin [Aspirin, Baby 81 mg PO DAILY chwtab 03/03/17 (CHEWABLE)] Levothyroxine Sodium [Synthroid] 50 mcg PO QDSYNTH 30 Days #30 tab 03/03/17 Lisinopril [Zestril/Prinivil] 20 mg PO Q12 30 Days #60 tab 03/03/17 Metoprolol Tartrate [Lopressor] 25 mg PO Q12 30 Days #60 tab 03/03/17 Nitroglycerin [Nitrostat] 400 mcg SL Q5M PRN 30 Days #25 tab 03/03/17 Pravastatin Sodium [Pravachol] 40 mg PO SUPPER 30 Days #30 tab 03/03/17 Ticagrelor [Brilinta] 90 mg PO Q12 30 Days #60 tab 03/03/17 Vitamin D 2,000 units.intl PO DAILY 30 Days 03/03/17 #30 tab - Time Spent with Patient Time with Patient: 35 minutes on discharge-plain was discussed with patient and nurse PLATELET COUNT Collected: 03/03/2017 Status: CANCELLED Source: [place] 6:00 AM [facility] REPOSITORY Order Comment: Cancelled via OM: Physician Order TYPE CODE TESTS RESULT OUT OF REFERENCE UNITS RANGE LAB PLT 150-400 Platelet Count Performed By: #### PLT #### [address] [address] ENDOCRINOLOGY PROGRESS Observed: 03/02/2017 Status: F Source: [place] NOTE 10:19 AM [facility] REPOSITORY [facility] Patient: EVARISTO HAYNES [address] [facility] MR#: [id number] [place], [place] [address] : 1965 Ord[address] : [facility] End[facility]ology Progress Note Service Dt: 03/02/17 Report#: [id number] Adm Dt: 02/27/17 Dis Dt: 03/03/17 Endocrine Progress Note - Patient Visit Reason Visit Reason: chest pain, nonstemi <Marilu Gutierrez - 03/02/17 10:22> - Chief Complaint Chief Complaint: Chest pain <Marilu Gutierrez - 03/02/17 10:22> - Subjective Narrative HPI/ROS: no acute event over night, s/p cardaic cath with 2 JENNY inserted in the left anterior descending artery. Feeling better today. no chest pain or sob. Feel might fatigue <Marilu Gutierrez - 03/02/17 10:22> - I O/Vital Signs I O/VS: Vital Signs Temp 36.8 C 03/02/17 16:00 Pulse 68 03/02/17 16:40 Resp 18 03/02/17 16:00 BP 178/94 H 03/02/17 16:40 Pulse Ox 95 03/02/17 16:00 Intake Output 03/01/17 03/02/17 03/02/17 23:59 11:59 23:59 Intake Total 2720 360 240 Output Total 600 350 200 Balance 2120 10 40 Intake: Intake 2000 Sodium Chloride 0.9% 1, 1000 000 ML @ 100 mls/hr IV . Q10H [facility] Rx#:[id number] Sodium Chloride 0.9% 1, 1000 000 ML @ 100 mls/hr IV . Q10H [facility] Rx#:[id number] Oral 720 360 240 Output: Urine 600 350 200 Void 600 350 200 <Raymundo Dasmalu - 03/02/17 17:18> Vital Signs Temp 36.4 C L 03/02/17 07:00 Pulse 63 03/02/17 10:00 Resp 18 03/02/17 07:00 BP 153/80 H 03/02/17 10:00 Pulse Ox 96 03/02/17 07:00 Intake Output 03/01/17 03/01/17 03/02/17 11:59 23:59 11:59 Intake Total 043.973 2574 360 Output Total 400 600 350 Balance 616.565 6509 10 Intake: Intake 798.085 4240 Heparin Sodium 25,000 96.350 UNITS In Dextrose 5% 250 ML @ 12 UNITS/KG/HR 13.36 mls/hr IV .[id number] [facility] Rx#:[id number] Sodium Chloride 0.9% 1, 174.922 0042 000 ML @ 100 mls/hr IV . Q10H [facility] Rx#:[id number] Sodium Chloride 0.9% 1, 1000 000 ML @ 100 mls/hr IV . Q10H [facility] Rx#:[id number] Oral 0 720 360 Output: Urine 400 600 350 Void 400 600 350 <Horace Gutierrezangela - 03/02/17 10:22> - Objective Narrative Patient Exam: Gen. appearance appears in no acute distress. Head is normocephalic, atraumatic Eyes anicteric, normal extra ocular movements, no stare Ear nose throat no URI signs Thyroid no megaly Lymph nodes no supraclavicular lymph nodes Neck supple, no JVD Chest normal respiratory excursion Lungs clear to auscultation Heart normal S1 and S2, no murmurs Abdomen soft, no tenderness, nbs Lower extremities without any edema or pre-tibial myxedema Musculoskeletal normal range of motion, no synovitis Skin normal texture and moisture <Marilu Gutierrez - 03/02/17 10:22> - Lab Diagnostic Data Diagrams: 03/02/17 04:31 03/02/17 04:31 <ThiagoRaymundopeeelma - 03/02/17 17:18> Chemistry: Chemistry (Last 24hrs) 03/02/17 04:31 Sodium 138 Potassium 4.4 Chloride 106 Carbon Dioxide 27 Anion Gap 9.4 BUN 16 Creatinine 1.0 Estim Creat Clear Calc 83 L Est GFR ( Amer) >60 Est GFR (Non-Af Amer) >60 Fasting Glucose 101 Calcium 8.2 L <Khoi Das - 03/02/17 17:18> Chemistry (Last 24hrs) 03/02/17 04:31 Sodium 138 Potassium 4.4 Chloride 106 Carbon Dioxide 27 Anion Gap 9.4 BUN 16 Creatinine 1.0 Estim Creat Clear Calc 83 L Est GFR ( Amer) >60 Est GFR (Non-Af Amer) >60 Fasting Glucose 101 Calcium 8.2 L <Marilu Gutierrez - 03/02/17 10:22> - Medications Meds: Current Medications Acetaminophen (Tylenol) 650 mg PO Q4 PRN PRN Reason: Pain (mild)/Temp above 38.3 C Last Admin: 03/02/17 08:16 Dose: 650 mg Al Hydrox/Mg Hydrox/Simethicone (Mylanta Ii) 15 ml PO Q4 PRN PRN Reason: Dyspepsia Aspirin (Aspirin, Baby (Chewable)) 81 mg PO DAILY [facility] Last Admin: 03/02/17 08:08 Dose: 81 mg Atorvastatin Calcium (Lipitor) 80 mg PO DAILY [facility] Last Admin: 03/02/17 08:08 Dose: 80 mg Dextrose (Dextrose Syringe) 25 ml IV Q15M PRN PRN Reason: Hypoglycemia Dextrose (Dextrose Syringe) 50 ml IV Q15M PRN PRN Reason: Hypoglycemia Dextrose (Instant Glucose) 37.5 g PO Q15M PRN PRN Reason: Hypoglycemia Glucagon (Glucagon) 1 mg IM Q15M PRN PRN Reason: Hypoglycemia Guaifenesin/Dextromethorphan (Robitussin-Dm) 5 ml PO Q4 PRN PRN Reason: Cough Levothyroxine Sodium (Synthroid) 50 mcg PO QDSYNTH [facility] Last Admin: 03/02/17 10:00 Dose: 50 mcg Lisinopril (Zestril/Prinivil) 10 mg PO DAILY [facility] Last Admin: 03/02/17 10:00 Dose: 10 mg Magnesium Hydroxide (Mom) 2,400 mg PO DAILY PRN PRN Reason: Constipation Melatonin (Melatonin) 3 mg PO QHS PRN PRN Reason: INSOMNIA Metoprolol Tartrate (Lopressor) 25 mg PO Q12 [facility] Last Admin: 03/02/17 16:40 Dose: 25 mg Ondansetron HCl (Zofran) 4 mg IV Q6 PRN PRN Reason: Nausea Last Admin: 03/01/17 21:44 Dose: 4 mg Ticagrelor (Brilinta) 90 mg PO Q12 [facility] Last Admin: 03/02/17 08:08 Dose: 90 mg Vitamin D (Vitamin D) 2,000 units.intl PO DAILY [facility] Last Admin: 03/02/17 08:07 Dose: 2,000 units.intl <Khoi Das - 03/02/17 17:18> Current Medications Acetaminophen (Tylenol) 650 mg PO Q4 PRN PRN Reason: Pain (mild)/Temp above 38.3 C Last Admin: 03/02/17 08:16 Dose: 650 mg Al Hydrox/Mg Hydrox/Simethicone (Mylanta Ii) 15 ml PO Q4 PRN PRN Reason: Dyspepsia Aspirin (Aspirin, Baby (Chewable)) 81 mg PO DAILY [facility] Last Admin: 03/02/17 08:08 Dose: 81 mg Atorvastatin Calcium (Lipitor) 80 mg PO DAILY [facility] Last Admin: 03/02/17 08:08 Dose: 80 mg Dextrose (Dextrose Syringe) 25 ml IV Q15M PRN PRN Reason: Hypoglycemia Dextrose (Dextrose Syringe) 50 ml IV Q15M PRN PRN Reason: Hypoglycemia Dextrose (Instant Glucose) 37.5 g PO Q15M PRN PRN Reason: Hypoglycemia Glucagon (Glucagon) 1 mg IM Q15M PRN PRN Reason: Hypoglycemia Guaifenesin/Dextromethorphan (Robitussin-Dm) 5 ml PO Q4 PRN PRN Reason: Cough Levothyroxine Sodium (Synthroid) 50 mcg PO QDSYNTH [facility] Last Admin: 03/02/17 10:00 Dose: 50 mcg Lisinopril (Zestril/Prinivil) 10 mg PO DAILY [facility] Last Admin: 03/02/17 10:00 Dose: 10 mg Magnesium Hydroxide (Mom) 2,400 mg PO DAILY PRN PRN Reason: Constipation Melatonin (Melatonin) 3 mg PO QHS PRN PRN Reason: INSOMNIA Metoprolol Tartrate (Lopressor) 25 mg PO Q12 [facility] Last Admin: 03/02/17 08:08 Dose: 25 mg Ondansetron HCl (Zofran) 4 mg IV Q6 PRN PRN Reason: Nausea Last Admin: 03/01/17 21:44 Dose: 4 mg Ticagrelor (Brilinta) 90 mg PO Q12 [facility] Last Admin: 03/02/17 08:08 Dose: 90 mg Vitamin D (Vitamin D) 2,000 units.intl PO DAILY [facility] Last Admin: 03/02/17 08:07 Dose: 2,000 units.intl <Marilu Gutierrez - 03/02/17 10:22> Allergies/Adv: Allergies Allergy/AdvReac Type Severity Reaction Status Date / Time Sulfa (Sulfonamide Allergy Agitation Verified 02/27/17 23:25 Antibiotics) <Khoi Das - 03/02/17 17:18> - Assessment/Plan (1) Hypothyroidism Status: Chronic Current Visit: Yes (2) Elevated LDL cholesterol level Status: Chronic Current Visit: Yes (3) Vitamin D deficiency Status: Acute Current Visit: Yes (4) HTN (hypertension) Status: Acute Current Visit: Yes (5) Non-STEMI (non-ST elevated myocardial infarction) Status: Acute Current Visit: Yes <Marilu Gutierrez - 03/02/17 17:02> - Comments Impression Comments: 03/02/17 17:12 Pt seen and examined at 830 am Feels ok. No CP S/p stent Now that his CAD is being treated and his blockages are resolved we can start small dose Synthroid D/w RN D/w Dr Gutierrez Agree with note and assessment of Dr Gutierrez <Khoi Das - 03/02/17 17:18> 03/02/17 10:23 Hypothyroidism. TSH is elevated. Free T4 is low-normal. FT3 is normal. thyroid antibodies were negative. cardiac cath shows 80 stenosis in the proximal left descending and 60% stenosis in the mid left descending artery. s/p 2 JENNY. started him on 50mcg levothyroxine daily No evidence for diabetes. A1c is normal. LDL is elevated sec to romero thyroid situation. currently on lipitor 80mg daily due to CAD and High LDL Diverticulosis-constipation. Possibly hypothyroidism is contributing to this problem as well. NSTEMI. S/P 2 JENNY, on dual-antiplatelet therapy and high potency statin Vit D def. continue replacemnet <Marilu Gutierrez - 03/02/17 10:27> CARDIAC PROGRESS NOTE Observed: 03/02/2017 Status: F Source: [place] 8:19 AM [facility] Patient: EVARISTO HAYNES [address] MR#: [id number] [place], [place] [address] : 1965 Ord. : Dept: PDOC Loc: 1HEART 180-1 Cardiac Progress Note Service Dt: 03/02/17 Report#: [id number] Adm Dt: 02/27/17 Dis Dt: Cardiac Progress Note - Patient Visit Reason Visit Reason: chest pain, nonstemi - Chief Complaint Chief Complaint: Chest pain - Subjective Narrative HPI/ROS: Patient with no chest pain shortness of breath lightheadedness due to his palpitations or problems at the right groin catheter site. Nurse notes that her blood pressures been elevated - Review of Systems All systems: 10 point review of systems negative except for what is stated in HPI - I O/Vital Signs I O/VS: Intake/Output/Wt 02/27/17 02/28/17 03/01/17 03/02/17 23:59 23:59 23:59 23:59 Intake Total 0829.648 0614.683 Output Total 1240 1000 350 Balance 078.328 5251.683 -350 Weight 111.4 kg Intake: Intake 056.255 6590.683 Heparin Sodium 25,000 223.400 96.350 UNITS In Dextrose 5% 250 ML @ 12 UNITS/KG/HR 13.36 mls/hr IV .[id number] [facility] Rx#:[id number] Sodium Chloride 0.9% 1, 1863.333 000 ML @ 100 mls/hr IV . Q10H [facility] Rx#:[id number] Sodium Chloride 0.9% 1, 1000 000 ML @ 100 mls/hr IV . Q10H [facility] Rx#:[id number] Sodium Chloride 0.9% 500 500 ML @ Wide Open IV .Q0M [facility] Rx#:[id number] Oral 780 720 Output: Urine 1240 1000 350 Void 1240 1000 350 Other: Height 1.73 m Continent of Bowel Yes Stool Characteristics Soft Formed Brown Stool Size Moderate Vital Signs (last 24 hrs) Temp Pulse Resp BP Pulse Ox 03/02/17 08:08 63 168/114 H 03/02/17 07:00 36.4 C L 56 L 18 170/93 H 96 03/02/17 04:00 64 20 155/98 H 97 03/02/17 03:49 58 L 03/02/17 00:01 36.8 C 59 L 18 154/103 H 97 03/01/17 21:18 62 168/95 H 03/01/17 20:00 65 20 155/77 H 97 03/01/17 19:29 65 03/01/17 17:00 60 20 121/66 97 03/01/17 16:00 37.0 C 65 20 119/76 97 03/01/17 15:06 64 03/01/17 15:00 70 16 146/83 H 98 03/01/17 14:00 64 20 137/87 98 03/01/17 13:00 50 L 16 120/78 98 03/01/17 12:39 60 117/74 03/01/17 12:30 60 20 117/74 98 03/01/17 12:00 50 L 16 143/87 H 98 03/01/17 11:45 50 L 16 137/90 98 03/01/17 11:30 62 20 140/88 97 03/01/17 11:15 58 L 20 136/95 H 98 03/01/17 11:05 36.5 C 53 L 18 135/92 H 97 03/01/17 10:49 36.5 C 62 18 150/79 H 97 - Patient Exam General appearance: alert, in no apparent distress Neck: Positive: no JVD Respiratory: Positive: normal lung sounds bilaterally Cardiovascular: Positive: regular rate. Negative: systolic murmur, JVD Peripheral pulses: 2+: carotid (R), carotid (L) Extremities: Positive: no edema, other (No ecchymosis or pulsatile mass at right groin catheter site) GI/Abdominal: Positive: soft Neurological: Positive: alert, oriented X3 Integumentary: warm, dry - Lab Data Diagrams: 03/02/17 04:31 03/02/17 04:31 Labs: Hematology 03/02/17 03/01/17 04:31 09:07 WBC 13.1 H 8.9 RBC 4.68 4.56 Hgb 13.6 13.5 Hct 43.0 42.7 MCV 91.9 93.6 MCH 29.1 29.6 MCHC 31.6 L 31.6 L RDW 14.0 14.3 Plt Count 251 244 MPV 9.3 9.1 Immature Gran % (Auto) 0.5 0.2 Neut % (Auto) 71 60 Lymph % (Auto) 16 L 24 [place] % (Auto) 9 H 9 H Eos % (Auto) 3 6 H Baso % (Auto) 0 1 Nucleat RBC Rel Count 0.0 0.0 Immature Gran # (Auto) 0.1 0.0 Neut # (Auto) 9.3 H 5.4 Lymph # (Auto) 2.1 2.1 [place] # (Auto) 1.2 H 0.8 Eos # (Auto) 0.3 0.5 Baso # (Auto) 0.1 0.1 Chemistry 03/02/17 03/01/17 04:31 09:07 Sodium 138 139 Potassium 4.4 4.8 Chloride 106 109 H Carbon Dioxide 27 25 Anion Gap 9.4 9.8 BUN 16 19 H Creatinine 1.0 1.0 Estim Creat Clear Calc 83 L 83 L Est GFR ( Amer) >60 >60 Est GFR (Non-Af Amer) >60 >60 Fasting Glucose 101 106 Calcium 8.2 L 8.2 L Phosphorus 2.4 L Magnesium 2.2 Coagulation 03/01/17 03/02/17 09:07 04:31 Plt Count 244 251 Lipids Triglycerides 105 mg/dL (30-150) 02/28/17 08:20 Cholesterol 177 mg/dL (0-200) 02/28/17 08:20 LDL Cholesterol 116 mg/dL (0-130) 02/28/17 08:20 HDL Cholesterol 40 mg/dL (39-96) 02/28/17 08:20 Cholesterol/HDL Ratio 4.43 (0-6.9) 02/28/17 08:20 - Diagnostic Data EKG/Telemetry: EKG #1 with sinus tachycardia with mild lateral ST depression Follow-up EKG with sinus rhythm with no acute ST-T changes Telemetry with sinus rhythm/sinus bradycardia Echocardiogram: Preserved LV systolic function Other: Telemetry with sinus rhythm - Medications Meds: Current Medications Acetaminophen (Tylenol) 650 mg PO Q4 PRN PRN Reason: Pain (mild)/Temp above 38.3 C Last Admin: 03/02/17 08:16 Dose: 650 mg Al Hydrox/Mg Hydrox/Simethicone (Mylanta Ii) 15 ml PO Q4 PRN PRN Reason: Dyspepsia Aspirin (Aspirin, Baby (Chewable)) 81 mg PO DAILY [facility] Last Admin: 03/02/17 08:08 Dose: 81 mg Atorvastatin Calcium (Lipitor) 80 mg PO DAILY [facility] Last Admin: 03/02/17 08:08 Dose: 80 mg Dextrose (Dextrose Syringe) 25 ml IV Q15M PRN PRN Reason: Hypoglycemia Dextrose (Dextrose Syringe) 50 ml IV Q15M PRN PRN Reason: Hypoglycemia Dextrose (Instant Glucose) 37.5 g PO Q15M PRN PRN Reason: Hypoglycemia Glucagon (Glucagon) 1 mg IM Q15M PRN PRN Reason: Hypoglycemia Guaifenesin/Dextromethorphan (Robitussin-Dm) 5 ml PO Q4 PRN PRN Reason: Cough Lisinopril (Zestril/Prinivil) 10 mg PO DAILY [facility] Magnesium Hydroxide (Mom) 2,400 mg PO DAILY PRN PRN Reason: Constipation Melatonin (Melatonin) 3 mg PO QHS PRN PRN Reason: INSOMNIA Metoprolol Tartrate (Lopressor) 25 mg PO Q12 [facility] Last Admin: 03/02/17 08:08 Dose: 25 mg Ondansetron HCl (Zofran) 4 mg IV Q6 PRN PRN Reason: Nausea Last Admin: 03/01/17 21:44 Dose: 4 mg Ticagrelor (Brilinta) 90 mg PO Q12 [facility] Last Admin: 03/02/17 08:08 Dose: 90 mg Vitamin D (Vitamin D) 2,000 units.intl PO DAILY [facility] Last Admin: 03/02/17 08:07 Dose: 2,000 units.intl Allergies/Adv: Allergies Allergy/AdvReac Type Severity Reaction Status Date / Time Sulfa (Sulfonamide Allergy Agitation Verified 02/27/17 23:25 Antibiotics) - Assessment/Plan (1) Non-STEMI (non-ST elevated myocardial infarction) Status: Acute Current Visit: Yes (2) Hypothyroidism Status: Chronic Current Visit: Yes (3) Family history of coronary artery disease Status: Chronic Current Visit: Yes (4) HTN (hypertension) Status: Acute Current Visit: Yes (5) Tobacco use disorder Status: Acute Current Visit: Yes - Comments Impression Comments: 02/28/17 09:07 52-year-old male with history of tobacco abuse and familial coronary disease and untreated hypothyroidism presented to the emergency department initially at [facility] with intermittent chest pain associated with shortness of breath. He ultimately ruled in for small non- ST elevation AR and was transferred to [facility] for additional evaluation treatment. The patient is currently pain-free hemodynamically stable in a normal sinus rhythm with no significant EKG changes. Plan will be for a invasive directed management as the patient did have elevated troponins and transient ST changes which places him at high risk for cardiovascular morbidity and mortality. He will be scheduled for cardiac catheterization in the a.m. in the meantime continue him on beta mary jo aspirin Brilinta statin and heparin. Will monitor closely in the heart center. We'll review his echocardiogram. Dr. Ortiz who in has evaluated him regarding his hypothyroidism. Patient will be hydrated prior to the catheter 03/02/17 08:21 Patient underwent implantation of drug-eluting stent in the proximal and mid LAD yesterday without complication. This was done after presentation with a non- ST elevation AR. He currently has no angina and is in a sinus rhythm with no signs of congestive heart failure and has preserved LV systolic function on his echo. He is on dual antiplatelet therapy statin and beta mary jo. Blood pressure is elevated therefore will not discharge today but will add lisinopril and monitor. Increase activity. PLATELET COUNT Collected: 03/02/2017 Status: CANCELLED Source: [place] 6:00 AM [facility] REPOSITORY Order Comment: DUPL TYPE CODE TESTS RESULT OUT OF REFERENCE UNITS RANGE LAB PLT 150-400 Platelet Count Performed By: #### PLT #### [facility] [address] [place] [address] COMPLETE BLOOD COUNT Collected: 03/02/2017 Status: F Source: [place] W/DIFF $$ 4:31 AM [facility] REPOSITORY TYPE CODE TESTS RESULT OUT OF REFERENCE UNITS RANGE LAB WBC 4.0-11.0 10 3/uL White Blood High Count 13.1 LAB RBC 4.5-6.0 10 6/uL Red Blood Count 4.68 LAB HGB 13.0-17.3 g/dL Hemoglobin 13.6 LAB HCT 39-50 % Hematocrit 43.0 LAB MCV 80-100 fL Mean Corpuscular Volume 91.9 LAB MCH 27-34 pg Mean Corpuscular 29.1 Hemoglobin LAB MCHC 33-37 g/dL Low Mean Corpuscular Hgb 31.6 Conc LAB RDW 11.5-14.5 % Red Cell Distribution Width 14.0 LAB PLT 150-400 10 3/uL Platelet Count 251 LAB MPV 7.4-10.4 fL Mean Platelet Volume 9.3 LAB NE% 42-76 % Neutrophils (Auto) 71 LAB LY% 24-44 % Low Lymphocytes (Auto) 16 LAB MO% 1-8 % Monocytes High (Auto) 9 LAB EO% 0-3 % Eosinophils (Auto) 3 LAB BA% 0-1 % Basophils (Auto) 0 LAB IG% 0.0-1.2 % Immature Granulocytes 0.5 (Auto) LAB NRBC% 0.0-0.2 % Nucleated RBC 0.0 LAB NE# 1.8-7.0 10 3/uL Neutrophils # High (Auto) 9.3 LAB LY# 1-3.5 10 3/uL Lymphocytes # (Auto) 2.1 LAB MO# 0.04-0.9 10 3/uL Monocytes # High (Auto) 1.2 LAB EO# 0.03-0.6 10 3/uL Eosinophils # (Auto) 0.3 LAB BA# 0.04-0.9 10 /uL Basophils # (Auto) 0.1 LAB IG# 10 3/uL Immature Gran# (Auto) 0.1 Performed By: #### CBC, BMP #### [facility] [address] [place] [address] BASIC METABOLIC PANEL Collected: 03/02/2017 Status: F Source: [place] $$$ 4:31 AM [facility] REPOSITORY TYPE CODE TESTS RESULT OUT OF REFERENCE UNITS RANGE LAB NA 136-145 mmol/L Sodium 138 LAB K 3.5-5.1 mmol/L Potassium 4.4 LAB CL 98-107 mmol/L Chloride $ 106 LAB CO2 21-32 mmol/L Carbon Dioxide $ 27 LAB AGAP Anion Gap 9.4 LAB BUN 7-18 mg/dL Blood Urea Nitrogen 16 LAB CRET 0.6-1.3 mg/dL Creatinine 1.0 LAB GFRAA GFR ( >60 Greek) LAB GFRNAA GFR (Non >60 Greek) Result Comment: eGFR Units of measure: mL/min/1.73 m 2 LAB ECRCL 94-145 mL/min Estimated Low Creatinine Clearance 83 LAB GLUF 74-106 mg/dL Glucose, Fasting 101 LAB CA 8.5-10.1 mg/dL Calcium $ Low 8.2 Performed By: #### CBC, BMP #### [address] [place] [address] CRITICAL CARE Observed: 03/01/2017 Status: F Source: [place] PROGRESS NOTE 3:39 PM [facility] REPOSITORY [facility] Patient: EVARISTO HAYNES [address] [facility] MR#: [id number] [place], [place] [address] : 1965 Ord. : Dept: PDOC Loc: 1HEART 180-1 Critical Care Progress Note Service Dt: 03/01/17 Report#: [id number] Adm Dt: 02/27/17 Dis Dt: Critical Care Progress Note - Patient Visit Reason Adm Visit Reason: chest pain, nonstemi <Ramez Benito - 03/01/17 16:17> - Chief Complaint Chief Complaint: Chest pain <Ramez Benito - 03/01/17 16:17> - I O/Vital Signs I O/VS: Intake/Output/Wt 01/09/0803/01/17 03/02/17 23:59 23:59 23:59 Intake Total 9536.801 4687.683 Output Total 1240 1000 350 Balance 731.171 1470.683 -350 Intake: Intake 779.671 8517.683 Heparin Sodium 25,000 223.400 96.350 UNITS In Dextrose 5% 250 ML @ 12 UNITS/KG/HR 13.36 mls/hr IV .[id number] [facility] Rx#:[id number] Sodium Chloride 0.9% 1, 1863.333 000 ML @ 100 mls/hr IV . Q10H [facility] Rx#:[id number] Sodium Chloride 0.9% 1, 1000 000 ML @ 100 mls/hr IV . Q10H [facility] Rx#:[id number] Sodium Chloride 0.9% 500 500 ML @ Wide Open IV .Q0M [facility] Rx#:[id number] Oral 780 720 Output: Urine 1240 1000 350 Void 1240 1000 350 Other: Continent of Bowel Yes Stool Characteristics Soft Formed Brown Stool Size Moderate Vital Signs (last 24 hrs) Temp Pulse Resp BP Pulse Ox 03/02/17 08:08 63 168/114 H 03/02/17 07:00 36.4 C L 56 L 18 170/93 H 96 03/02/17 04:00 64 20 155/98 H 97 03/02/17 03:49 58 L 03/02/17 00:01 36.8 C 59 L 18 154/103 H 97 03/01/17 21:18 62 168/95 H 03/01/17 20:00 65 20 155/77 H 97 03/01/17 19:29 65 03/01/17 17:00 60 20 121/66 97 03/01/17 16:00 37.0 C 65 20 119/76 97 03/01/17 15:06 64 03/01/17 15:00 70 16 146/83 H 98 03/01/17 14:00 64 20 137/87 98 03/01/17 13:00 50 L 16 120/78 98 03/01/17 12:39 60 117/74 03/01/17 12:30 60 20 117/74 98 03/01/17 12:00 50 L 16 143/87 H 98 03/01/17 11:45 50 L 16 137/90 98 03/01/17 11:30 62 20 140/88 97 03/01/17 11:15 58 L 20 136/95 H 98 03/01/17 11:05 36.5 C 53 L 18 135/92 H 97 03/01/17 10:49 36.5 C 62 18 150/79 H 97 <Zbigniew Hammer - 03/02/17 09:09> Intake/Output/Wt 02/27/17 02/28/17 03/01/17 23:59 23:59 23:59 Intake Total 5661.495 6117.683 Output Total 1240 700 Balance 263.400 619.683 Weight 111.4 kg Intake: Intake 723.400 959.683 Heparin Sodium 25,000 223.400 96.350 UNITS In Dextrose 5% 250 ML @ 12 UNITS/KG/HR 13.36 mls/hr IV .[id number] [facility] Rx#:[id number] Sodium Chloride 0.9% 1, 863.333 000 ML @ 100 mls/hr IV . Q10H [facility] Rx#:[id number] Sodium Chloride 0.9% 500 500 ML @ Wide Open IV .Q0M [facility] Rx#:[id number] Oral 780 360 Output: Urine 1240 700 Void 1240 700 Other: Height 1.73 m Continent of Bowel Yes Stool Characteristics Soft Formed Brown Stool Size Moderate Vital Signs (last 24 hrs) Temp Pulse Resp BP Pulse Ox 03/01/17 15:06 64 03/01/17 14:00 64 20 137/87 98 03/01/17 13:00 50 L 16 120/78 98 03/01/17 12:39 60 117/74 03/01/17 12:30 60 20 117/74 98 03/01/17 12:00 50 L 16 143/87 H 98 03/01/17 11:45 50 L 16 137/90 98 03/01/17 11:30 62 20 140/88 97 03/01/17 11:15 58 L 20 136/95 H 98 03/01/17 11:05 36.5 C 53 L 18 135/92 H 97 03/01/17 10:49 36.5 C 62 18 150/79 H 97 03/01/17 07:24 58 L 03/01/17 06:40 36.5 C 55 L 18 134/75 97 03/01/17 03:47 58 L 03/01/17 03:46 36.8 C 58 L 20 121/62 95 03/01/17 00:01 36.0 C L 62 20 122/75 95 02/28/17 20:27 61 137/90 02/28/17 20:10 72 02/28/17 20:00 36.1 C L 63 20 137/90 97 <Ramez Benito - 03/01/17 16:17> - Ventilator Settings Ventilator Settings: Ventilator Settings Sputum Amount None Sputum Amount None <Zbigniew Hammer - 03/02/17 09:09> Ventilator Settings Sputum Amount None Sputum Amount None Sputum Amount None Sputum Amount None <Ramez Benito - 03/01/17 16:17> - Lab Diagnostic Data Diagrams: 03/02/17 04:31 03/02/17 04:31 <Zbigniew Hammer - 03/02/17 09:09> Labs: Hematology 03/02/17 03/01/17 04:31 09:07 WBC 13.1 H 8.9 RBC 4.68 4.56 Hgb 13.6 13.5 Hct 43.0 42.7 MCV 91.9 93.6 MCH 29.1 29.6 MCHC 31.6 L 31.6 L RDW 14.0 14.3 Plt Count 251 244 MPV 9.3 9.1 Immature Gran % (Auto) 0.5 0.2 Neut % (Auto) 71 60 Lymph % (Auto) 16 L 24 [place] % (Auto) 9 H 9 H Eos % (Auto) 3 6 H Baso % (Auto) 0 1 Nucleat RBC Rel Count 0.0 0.0 Immature Gran # (Auto) 0.1 0.0 Neut # (Auto) 9.3 H 5.4 Lymph # (Auto) 2.1 2.1 [place] # (Auto) 1.2 H 0.8 Eos # (Auto) 0.3 0.5 Baso # (Auto) 0.1 0.1 Chemistry 03/02/17 03/01/17 04:31 09:07 Sodium 138 139 Potassium 4.4 4.8 Chloride 106 109 H Carbon Dioxide 27 25 Anion Gap 9.4 9.8 BUN 16 19 H Creatinine 1.0 1.0 Estim Creat Clear Calc 83 L 83 L Est GFR ( Amer) >60 >60 Est GFR (Non-Af Amer) >60 >60 Fasting Glucose 101 106 Calcium 8.2 L 8.2 L Phosphorus 2.4 L Magnesium 2.2 Coagulation 03/01/17 03/02/17 09:07 04:31 Plt Count 244 251 Lipids Triglycerides 105 mg/dL (30-150) 02/28/17 08:20 Cholesterol 177 mg/dL (0-200) 02/28/17 08:20 LDL Cholesterol 116 mg/dL (0-130) 02/28/17 08:20 HDL Cholesterol 40 mg/dL (39-96) 02/28/17 08:20 Cholesterol/HDL Ratio 4.43 (0-6.9) 02/28/17 08:20 <Zbigniew Hammer - 03/02/17 09:09> Hematology 03/01/17 03/01/17 09:07 04:13 WBC 8.9 RBC 4.56 Hgb 13.5 Hct 42.7 MCV 93.6 MCH 29.6 MCHC 31.6 L RDW 14.3 Plt Count 244 251 D MPV 9.1 Immature Gran % (Auto) 0.2 Neut % (Auto) 60 Lymph % (Auto) 24 [place] % (Auto) 9 H Eos % (Auto) 6 H Baso % (Auto) 1 Nucleat RBC Rel Count 0.0 Immature Gran # (Auto) 0.0 Neut # (Auto) 5.4 Lymph # (Auto) 2.1 [place] # (Auto) 0.8 Eos # (Auto) 0.5 Baso # (Auto) 0.1 Chemistry 03/01/17 09:07 Sodium 139 Potassium 4.8 Chloride 109 H Carbon Dioxide 25 Anion Gap 9.8 BUN 19 H Creatinine 1.0 Estim Creat Clear Calc 83 L Est GFR ( Amer) >60 Est GFR (Non-Af Amer) >60 Fasting Glucose 106 Calcium 8.2 L Phosphorus 2.4 L Magnesium 2.2 Coagulation 02/28/17 03/01/17 03/01/17 15:50 01:05 04:13 Plt Count 251 D APTT 49 H 48 H 03/01/17 09:07 Plt Count 244 APTT Lipids Triglycerides 105 mg/dL (30-150) 02/28/17 08:20 Cholesterol 177 mg/dL (0-200) 02/28/17 08:20 LDL Cholesterol 116 mg/dL (0-130) 02/28/17 08:20 HDL Cholesterol 40 mg/dL (39-96) 02/28/17 08:20 Cholesterol/HDL Ratio 4.43 (0-6.9) 02/28/17 08:20 <Ramez Benito - 03/01/17 16:17> - Medications Meds: Current Medications Acetaminophen (Tylenol) 650 mg PO Q4 PRN PRN Reason: Pain (mild)/Temp above 38.3 C Last Admin: 03/02/17 08:16 Dose: 650 mg Al Hydrox/Mg Hydrox/Simethicone (Mylanta Ii) 15 ml PO Q4 PRN PRN Reason: Dyspepsia Aspirin (Aspirin, Baby (Chewable)) 81 mg PO DAILY [facility] Last Admin: 03/02/17 08:08 Dose: 81 mg Atorvastatin Calcium (Lipitor) 80 mg PO DAILY [facility] Last Admin: 03/02/17 08:08 Dose: 80 mg Dextrose (Dextrose Syringe) 25 ml IV Q15M PRN PRN Reason: Hypoglycemia Dextrose (Dextrose Syringe) 50 ml IV Q15M PRN PRN Reason: Hypoglycemia Dextrose (Instant Glucose) 37.5 g PO Q15M PRN PRN Reason: Hypoglycemia Glucagon (Glucagon) 1 mg IM Q15M PRN PRN Reason: Hypoglycemia Guaifenesin/Dextromethorphan (Robitussin-Dm) 5 ml PO Q4 PRN PRN Reason: Cough Levothyroxine Sodium (Synthroid) 50 mcg PO QDSYNTH [facility] Lisinopril (Zestril/Prinivil) 10 mg PO DAILY [facility] Magnesium Hydroxide (Mom) 2,400 mg PO DAILY PRN PRN Reason: Constipation Melatonin (Melatonin) 3 mg PO QHS PRN PRN Reason: INSOMNIA Metoprolol Tartrate (Lopressor) 25 mg PO Q12 [facility] Last Admin: 03/02/17 08:08 Dose: 25 mg Ondansetron HCl (Zofran) 4 mg IV Q6 PRN PRN Reason: Nausea Last Admin: 03/01/17 21:44 Dose: 4 mg Ticagrelor (Brilinta) 90 mg PO Q12 [facility] Last Admin: 03/02/17 08:08 Dose: 90 mg Vitamin D (Vitamin D) 2,000 units.intl PO DAILY [facility] Last Admin: 03/02/17 08:07 Dose: 2,000 units.intl <Zbigniew Hammer - 03/02/17 09:09> Current Medications Acetaminophen (Tylenol) 650 mg PO Q4 PRN PRN Reason: Pain (mild)/Temp above 38.3 C Last Admin: 03/01/17 12:37 Dose: 650 mg Al Hydrox/Mg Hydrox/Simethicone (Mylanta Ii) 15 ml PO Q4 PRN PRN Reason: Dyspepsia Aspirin (Aspirin, Baby (Chewable)) 81 mg PO DAILY [facility] Last Admin: 03/01/17 08:25 Dose: 81 mg Atorvastatin Calcium (Lipitor) 80 mg PO DAILY [facility] Last Admin: 03/01/17 12:38 Dose: 80 mg Dextrose (Dextrose Syringe) 25 ml IV Q15M PRN PRN Reason: Hypoglycemia Dextrose (Dextrose Syringe) 50 ml IV Q15M PRN PRN Reason: Hypoglycemia Dextrose (Instant Glucose) 37.5 g PO Q15M PRN PRN Reason: Hypoglycemia Glucagon (Glucagon) 1 mg IM Q15M PRN PRN Reason: Hypoglycemia Guaifenesin/Dextromethorphan (Robitussin-Dm) 5 ml PO Q4 PRN PRN Reason: Cough Sodium Chloride (Sodium Chloride 0.9%) 1,000 mls @ 100 mls/hr IV .Q10H [facility] Last Admin: 03/01/17 11:00 Dose: 100 mls/hr Magnesium Hydroxide (Mom) 2,400 mg PO DAILY PRN PRN Reason: Constipation Melatonin (Melatonin) 3 mg PO QHS PRN PRN Reason: INSOMNIA Metoprolol Tartrate (Lopressor) 25 mg PO Q12 [facility] Last Admin: 03/01/17 12:39 Dose: 25 mg Ondansetron HCl (Zofran) 4 mg IV Q6 PRN PRN Reason: Nausea Last Admin: 02/28/17 17:53 Dose: 4 mg Ticagrelor (Brilinta) 90 mg PO Q12 [facility] Last Admin: 03/01/17 08:25 Dose: 90 mg Vitamin D (Vitamin D) 2,000 units.intl PO DAILY [facility] Last Admin: 03/01/17 08:25 Dose: 2,000 units.intl <Ramez Benito - 03/01/17 16:17> Allergies/Adv: Allergies Allergy/AdvReac Type Severity Reaction Status Date / Time Sulfa (Sulfonamide Allergy Agitation Verified 02/27/17 23:25 Antibiotics) <Zbigniew Hammer - 03/02/17 09:09> - Problem List/Plan (1) HTN (hypertension) Status: Acute Current Visit: Yes (2) Non-STEMI (non-ST elevated myocardial infarction) Status: Acute Current Visit: Yes (3) Tobacco use disorder Status: Acute Current Visit: Yes (4) Family history of coronary artery disease Status: Chronic Current Visit: Yes (5) Hypothyroidism Status: Chronic Current Visit: Yes <Ramez Benito - 03/01/17 15:39> - Comments Impression Comments: 03/02/17 09:08 Critical Care Attending Note Patient seen and examined by me with my findings embedded in the note above. Briefly, this is a 52 yo m with NSTEMI Cath planned today No other medical issues Will sign off. Please call with questions. Zbigniew Hammer MD, [facility] Pulmonary Critical Care Critical Care Time <Zbigniew Hammer - 03/02/17 09:09> Admission History: Patient is a 52 year old male with known hypothyroidism and hypertension. He states he has not been taking his medications as prescribed for quite some time. He initially presented to [facility] with intermittent chest discomfort that progressed to pain that would occur with activity and eventually at rest. He noticed it for a few days, and said that it was associated with shortness of breath and a cold clammy feeling. The pain did not radiate and was relieved with rest at time. He had no nausea and vomiting. No changes in appetite. No fever or chills. He was admitted with elevated Troponins and an NSTEMI. Daily Progress: 03/01/2017 - patient states he is symptom free currently - scheduled for cardiac catheterization today Past Medical History: - See Above Family History: - See Above Allergies: - See Above Social History: - See Above Current Medications: - See Above Review of Systems: - General: denies weight gain, denies loss of appetite, fever, chills, night sweats. - HEENT: denies headaches, dizziness, head trauma, visual changes, eye pain, tinnitus, nosebleeds, hoarseness or throat pain - Respiratory: denies chest pain, dyspnea, cough and hemoptysis - Cardiovascular: denies orthopnea, paroxysmal nocturnal dyspnea and leg swelling - Gastrointestinal: denies pain, nausea, vomiting, diarrhea, constipation, melena or bleeding. - Genitourinary: denies hematuria, frequency, urgency or dysuria - Neurology: denies syncope, seizures, paralysis, paresthesia - Endocrine: denies polyuria, polydipsia, skin or hair changes, and heat or cold intolerance - Musculoskeletal: denies joint pain, swelling, arthritis or myalgia - Hematologic: denies bleeding, adenopathy and easy bruising - Skin: denies rashes and skin discoloration - Psychiatry: denies depression Physical Exam: Vital Signs: - Reviewed Noted Above Input/Output: - Reviewed Noted Above Oxygen requirements: - Reviewed Noted Above Ventilator Information: - Reviewed Noted Above General appearance: Well developed, not in pain or distress, in no respiratory distress HEENT: Atraumatic/normocephalic, EOMI, ELIECER, pharynx clear, moist mucosa, redness of the uvula appreciated, Neck: Supple, no jugular venous distension, lymphadenopathy, thyromegaly or carotid bruits Chest: Equal normal breath sounds, no wheezing, no crackles and no tenderness over ribs Cardiovascular: Normal S1, S2, regular rate and rhythm, no murmur, rub or gallop Abdomen: Normal sounds present, soft, no tenderness, no hepatosplenomegaly, and no palpable masses Extremities: No edema. Pulses are equally present. Skin: intact, no rashes Neurologic: Alert and oriented x 3, No focal deficit Investigations: - Labs, radiological imaging and cardiac work up were reviewed Assessment Plan: Cardiovascular System: - NSTEMi - Elevated troponin - scheduled for cardiac Cath 03/01/2017 - Echo 02/28/2017 1. The left ventricular systolic function is normal with a 60-65% estimated ejection fraction. 2. There is a no pericardial effusion. 3. Slightly elevated RVSP. 4. Lipomatous hypertrophy of the atrial septum. - Continued on Aspirin, Lipitor, Lopressor, Ticagrelor - Discontinued off heparin drip Endocrine System: - Hypothyroidism - appreciate endocrinology management <Ramez Benito - 03/01/17 16:17> COMPLETE BLOOD COUNT Collected: 03/01/2017 Status: F Source: [place]ST[place] W/DIFF $$ 9:07 AM [facility] REPOSITORY TYPE CODE TESTS RESULT OUT OF REFERENCE UNITS RANGE LAB WBC 4.0-11.0 10 3/uL White Blood Count 8.9 LAB RBC 4.5-6.0 10 6/uL Red Blood Count 4.56 LAB HGB 13.0-17.3 g/dL Hemoglobin 13.5 LAB HCT 39-50 % Hematocrit 42.7 LAB MCV 80-100 fL Mean Corpuscular Volume 93.6 LAB MCH 27-34 pg Mean Corpuscular 29.6 Hemoglobin LAB MCHC 33-37 g/dL Low Mean Corpuscular Hgb 31.6 Conc LAB RDW 11.5-14.5 % Red Cell Distribution Width 14.3 LAB PLT 150-400 10 3/uL Platelet Count 244 LAB MPV 7.4-10.4 fL Mean Platelet Volume 9.1 LAB NE% 42-76 % Neutrophils (Auto) 60 LAB LY% 24-44 % Lymphocytes (Auto) 24 LAB MO% 1-8 % Monocytes High (Auto) 9 LAB EO% 0-3 % Eosinophils High (Auto) 6 LAB BA% 0-1 % Basophils (Auto) 1 LAB IG% 0.0-1.2 % Immature Granulocytes 0.2 (Auto) LAB NRBC% 0.0-0.2 % Nucleated RBC 0.0 LAB NE# 1.8-7.0 10 3/uL Neutrophils # (Auto) 5.4 LAB LY# 1-3.5 10 3/uL Lymphocytes # (Auto) 2.1 LAB MO# 0.04-0.9 10 3/uL Monocytes # (Auto) 0.8 LAB EO# 0.03-0.6 10 3/uL Eosinophils # (Auto) 0.5 LAB BA# 0.04-0.9 10 /uL Basophils # (Auto) 0.1 LAB IG# 10 3/uL Immature Gran# (Auto) 0.0 Performed By: #### CBC, BMP, PHOS, MG #### [facility] [address] [place] [address] BASIC METABOLIC PANEL Collected: 03/01/2017 Status: F Source: [place] $$$ 9:07 AM [facility] REPOSITORY TYPE CODE TESTS RESULT OUT OF REFERENCE UNITS RANGE LAB NA 136-145 mmol/L Sodium 139 LAB K 3.5-5.1 mmol/L Potassium 4.8 LAB CL 98-107 mmol/L Chloride High $ 109 LAB CO2 21-32 mmol/L Carbon Dioxide $ 25 LAB AGAP Anion Gap 9.8 LAB BUN 7-18 mg/dL Blood High Urea Nitrogen 19 LAB CRET 0.6-1.3 mg/dL Creatinine 1.0 LAB GFRAA GFR ( >60 Greek) LAB GFRNAA GFR (Non >60 Greek) Result Comment: eGFR Units of measure: mL/min/1.73 m 2 LAB ECRCL 94-145 mL/min Estimated Low Creatinine Clearance 83 LAB GLUF 74-106 mg/dL Glucose, Fasting 106 LAB CA 8.5-10.1 mg/dL Calcium $ Low 8.2 Performed By: #### CBC, BMP, PHOS, MG #### [address] [address] PHOSPHORUS Collected: 03/01/2017 Status: F Source: [place] 9:07 AM [facility] REPOSITORY TYPE CODE TESTS RESULT OUT OF REFERENCE UNITS RANGE LAB PHOS 2.5-4.9 mg/dL Low Phosphorus 2.4 Performed By: #### CBC, BMP, PHOS, MG #### [address] [address] MAGNESIUM $$ Collected: 03/01/2017 Status: F Source: [place] 9:07 AM [facility] REPOSITORY TYPE CODE TESTS RESULT OUT OF REFERENCE UNITS RANGE LAB MG 1.8-2.4 mg/dL Magnesium $$ 2.2 Performed By: #### CBC, BMP, PHOS, MG #### [address] [address] PARTIAL THROMBOPLASTIN Collected: 03/01/2017 Status: CANCELLED Source: [place] TIME $ 8:00 AM [facility] REPOSITORY Order Comment: Cancelled via OM: Physician Order Add on to today's blood, if available? N Is patient on anticoagulants? Y TYPE CODE TESTS RESULT OUT OF REFERENCE UNITS RANGE LAB PTT 22.5-31.3 Partial Thromboplastin Time $ Performed By: #### PTT #### [address] [address] ENDOCRINOLOGY PROGRESS Observed: 03/01/2017 Status: F Source: [place] NOTE 4:37 AM [facility] REPOSITORY [facility] Patient: EVARISTO HAYNES nAuel [address] [place] [address] MR#: [id number] [place], [place] [address] : 1965 Ord. : Dept: PD[facility]: [facility] Progress Note Service Dt: 03/01/17 Report#: [id number] Adm Dt: 02/27/17 Dis Dt: 03/03/17 Endocrine Progress Note - Patient Visit Reason Visit Reason: chest pain, nonstemi - Chief Complaint Chief Complaint: Chest pain - Subjective Narrative HPI/ROS: feels nausea, some heart burn stressed pt took lipitor in past and did not agree with him No CP - Review of Systems All systems: 10 point review of systems negative except for what is stated in HPI (see note dictated yesterday) - I O/Vital Signs I O/VS: Vital Signs Temp 36.8 C 03/01/17 03:46 Pulse 58 L 03/01/17 03:47 Resp 20 03/01/17 03:46 BP 121/62 03/01/17 03:46 Pulse Ox 95 03/01/17 03:46 Intake Output 02/28/17 02/28/17 03/01/17 11:59 23:59 11:59 Intake Total 1132.767 370.633 96.350 Output Total 800 440 Balance 332.767 -69.367 96.350 Intake: Intake 592.767 130.633 96.350 Heparin Sodium 25,000 92.767 130.633 96.350 UNITS In Dextrose 5% 250 ML @ 12 UNITS/KG/HR 13.36 mls/hr IV .[id number] [facility] Rx#:[id number] Sodium Chloride 0.9% 500 500 ML @ Wide Open IV .Q0M ONE Rx#:[id number] Oral 540 240 Output: Urine 800 440 Void 800 440 Other: Continent of Bowel Yes Stool Characteristics Soft Formed Brown Stool Size Moderate - Patient Exam General appearance: Positive: alert, in no apparent distress HEENT: Positive: head normal inspection, EOMI, other (lower orbital edema layla.) Neck: Positive: Supple Respiratory: Positive: normal lung sounds bilaterally Cardiovascular: Positive: normal heart sounds GI/Abdominal: Positive: soft, nontender Extremities: Positive: normal inspection, no edema Neurological: Positive: alert, oriented X3 Integumentary: Positive: warm, dry Psychiatric exam: Positive: anxious - Lab Diagnostic Data Diagrams: 02/28/17 04:00 Chemistry: Chemistry (Last 24hrs) 02/28/17 02/28/17 08:20 04:00 Hemoglobin A1c 5.9 Uric Acid 5.8 Troponin I 0.495 H* Triglycerides 105 159 H Cholesterol 177 168 LDL Cholesterol 116 97 HDL Cholesterol 40 40 Cholesterol/HDL Ratio 4.43 4.20 25-OH Vitamin D Total 15.10 - Medications Meds: Current Medications Acetaminophen (Tylenol) 650 mg PO Q4 PRN PRN Reason: Pain (mild)/Temp above 38.3 C Last Admin: 02/28/17 21:04 Dose: 650 mg Al Hydrox/Mg Hydrox/Simethicone (Mylanta Ii) 15 ml PO Q4 PRN PRN Reason: Dyspepsia Aspirin (Aspirin, Baby (Chewable)) 81 mg PO DAILY [facility] Last Admin: 02/28/17 09:08 Dose: 81 mg Atorvastatin Calcium (Lipitor) 80 mg PO DAILY [facility] Last Admin: 02/28/17 09:08 Dose: 80 mg Dextrose (Dextrose Syringe) 25 ml IV Q15M PRN PRN Reason: Hypoglycemia Dextrose (Dextrose Syringe) 50 ml IV Q15M PRN PRN Reason: Hypoglycemia Dextrose (Instant Glucose) 37.5 g PO Q15M PRN PRN Reason: Hypoglycemia Glucagon (Glucagon) 1 mg IM Q15M PRN PRN Reason: Hypoglycemia Guaifenesin/Dextromethorphan (Robitussin-Dm) 5 ml PO Q4 PRN PRN Reason: Cough Sodium Chloride (Sodium Chloride 0.9%) 1,000 mls @ 100 mls/hr IV .Q10H [facility] Last Admin: 02/28/17 20:16 Dose: 100 mls/hr Magnesium Hydroxide (Mom) 2,400 mg PO DAILY PRN PRN Reason: Constipation Melatonin (Melatonin) 3 mg PO QHS PRN PRN Reason: INSOMNIA Metoprolol Tartrate (Lopressor) 25 mg PO Q12 [facility] Last Admin: 02/28/17 20:27 Dose: 25 mg Ondansetron HCl (Zofran) 4 mg IV Q6 PRN PRN Reason: Nausea Last Admin: 02/28/17 17:53 Dose: 4 mg Ticagrelor (Brilinta) 90 mg PO Q12 [facility] Last Admin: 02/28/17 20:28 Dose: 90 mg Allergies/Adv: Allergies Allergy/AdvReac Type Severity Reaction Status Date / Time Sulfa (Sulfonamide Allergy Agitation Verified 02/27/17 23:25 Antibiotics) - Comments Impression Comments: 02/28/17 06:35 Hypothyroidism. TSH is elevated. Free T4 is low-normal. FT3 is normal. We'll add thyroid antibodies. I'm not rushing and putting him on Synthroid at this point to find out what's the severity of his coronary artery disease. No evidence for diabetes. However I would like to screen him with an A1c. Possible hyperlipidemia especially in the presence of elevated TSH. Lipid profile will be ordered. Diverticulosis-constipation. Possibly hypothyroidism is contributing to this problem as well. NSTEMI. Awaiting cardiology input. Hypertension. 03/01/17 04:39 Hypothyroidism. TSH is elevated. Free T4 is low-normal. FT3 is normal. thyroid antibodies are pending. I'm not rushing and putting him on Synthroid at this point to find out what's the severity of his coronary artery disease. Will await the results of the cardiac cath No evidence for diabetes. However I would like to screen him with an A1c. A1c is normal. Possible hyperlipidemia especially in the presence of elevated TSH. Lipid profile will be ordered. LDL is elevated sec to romero thyroid situation. May need to consider a weaker statin! Diverticulosis-constipation. Possibly hypothyroidism is contributing to this problem as well. NSTEMI. Cardiac cath today Hypertension. Vit D def. Start replacemnet Low Back pain. We will give one dose MS sec to being NPO Nausea. We will try pepcid IV. D/w PAULINA BAILEY PLATELET COUNT Collected: 03/01/2017 Status: F Source: [place] 4:13 AM [facility] REPOSITORY TYPE CODE TESTS RESULT OUT OF REFERENCE UNITS RANGE LAB PLT 150-400 10 3/uL Platelet Count 251 Performed By: #### PLT #### [facility] [address] [place] [address] PARTIAL THROMBOPLASTIN Collected: 03/01/2017 Status: F Source: [place] TIME $ 1:05 AM [facility] REPOSITORY TYPE CODE TESTS RESULT OUT OF REFERENCE UNITS RANGE LAB PTT 22.5-31.3 sec Partial High Thromboplastin Time 48 $ Result Comment: Therapeutic range: 52.6-80.3 Performed By: #### PTT #### [address] [address] FREE T3 Collected: 03/01/2017 Status: CANCELLED Source: [facility] 12:00 [facility] REPOSITORY Order Comment: Cancelled via OM: Physician Order Add on to today's blood, if available? Y TYPE CODE TESTS RESULT OUT OF RANGE REFERENCE UNITS LAB FREET3 Free T3 Performed By: #### FREET3, FT4 #### [address] [address] FREE T4 Collected: 03/01/2017 Status: CANCELLED Source: [facility] 12:00 [facility] REPOSITORY Order Comment: Cancelled via OM: Physician Order Add on to today's blood, if available? Y TYPE CODE TESTS RESULT OUT OF RANGE REFERENCE UNITS LAB FT4 0.8-1.5 Free T4 Performed By: #### FREET3, FT4 #### [address] [address] CARDIAC CATHETERIZATION Observed: 03/01/2017 Status: F Source: [place] 12:00 [facility] Patient: EVARISTO HAYNES [address] [facility]. MR#: [id number] [place] [address] : [address] Allen Biggs DO Dept: Diagnostic Loc: 1HEART 180-1 Cardiac Catheterization Service Dt: 03/01/17 Report#: [id number] Adm Dt: 02/27/17 Dis Dt: PIG FURNACE OPERATOR PROCEDURE REFERRING PHYSICIAN: Allen Biggs DO HAT FORMING MACHINE FEEDER: Umer Odell M.D. PROCEDURE PERFORMED: 1. Angioplasty and drug-eluting stenting of the proximal left anterior descending artery with a 3.0 x 18 mm Resolute stent, post-dilated with a 3.0 NC balloon. 2. Angioplasty and drug-eluting stenting of the mid left anterior descending artery with a 2.5 x 12 mm Resolute stent, post-dilated with a 2.5 NC balloon. 3. A 6-Angolan Perclose device to the right femoral artery. SEDATION: Conscious sedation and 2% Xylocaine locally. Moderate sedation time is 30 minutes. INDICATION FOR PROCEDURE: The patient is a 52-year-old male who presents with a non-ST segment elevation AR. Dr. Biggs performed diagnostic angiography which demonstrated LAD disease. He remained on table to undergo percutaneous revascularization. PROCEDURE IN DETAIL: Informed consent had already been obtained and there was a 6-Angolan sheath in the right femoral artery and this was used for the intervention. A 7500 units of intravenous heparin was given for an ACT of 360. A 6-Angolan EBU 3.5 guiding catheter was used to engage the left coronary ostium. A Delta Blue wire was advanced into the mid left anterior descending artery. Care was taken to try not to cross all the disease in the [id number] left anterior descending artery after the diagonal artery. Predilation was done proximally with a 3.0 x 15 mm balloon at nominal pressures. A 3.0 x 18 mm Resolute stent was deployed at 14 atmospheres for 25 seconds. Post-dilatation was done with a 3.0 x 12 mm NC balloon at 16-24 atmospheres. 200 mcg of intracoronary nitroglycerin was given. Final angiography demonstrated excellent result in the stented area. There was a mild area of disease proximal to the stent, but there did not appear to be an edge dissection. Ideally, if we had a 20 mm stent, this would have been better taken care of, however, there were no 20 mm stent on the shelf. I did not think it was worth an extra 5 mm of stent in order to cover this with a 23mm stent. Also, did not feel that it was necessary to place an additional stent in this area and thus this area was left alone. After intracoronary nitroglycerin, reexamination the mid left anterior descending artery demonstrated some progression of disease. The decision was made to revascularize the short area right after the diagonal artery. The Delta blue was readvanced across the lesion. Direct stenting was then performed with a 2.5 x 12 mm Resolute stent at 12 atmospheres for 25 seconds. Post-dilatation was done with a 2.5 x 8 mm NC balloon at 16 atmospheres for 2 inflations. A total of 400 mcg of intracoronary nitroglycerin was given. Final angiography demonstrated acceptable result. There was no residual stenosis in the either stented area. There was MELISSA 3 flow down the left anterior descending artery. After this stent, there was pretty diffuse disease on the order of 60%. CONTRAST USED: 70 mL. COMPLICATIONS: None known. IMPRESSION: Non-ST segment elevation myocardial infarction with culprit lesion in the left anterior descending artery, status post successful drug-eluting stenting. RECOMMENDATIONS: 1. Aspirin indefinitely. 2. Dual anti-platelet therapy for at least 1 year. 3. Medical therapy for coronary artery disease. 4. Further recommendations per Dr. Biggs. Umer Odell MD D#: [id number] C#: [id number] Allen Biggs DO <Electronically signed by Umer Odell MD> 03/01/17 1531 CARDIAC CATHETERIZATION Observed: 03/01/2017 Status: F Source: [place] 12:00 AM [facility] Patient: EVARISTO HAYNES [address] [facility]. MR#: [id number] [place] [address] : 1965 Att. : Allen Biggs DO Dept: Diagnostic [facility] Cardiac Catheterization Service Dt: 03/01/17 Report#: [id number] Adm Dt: 02/27/17 Dis Dt: PIG FURNACE OPERATOR PROCEDURE PROCEDURE: Left Heart Catheterization. REFERRING PHYSICIAN: Allen Biggs DO INDICATION: Non-ST elevation myocardial infarction. HISTORY OF PRESENT ILLNESS: The patient presented to the [facility] in the [place] with chest pain. He had no acute ischemic EKG changes, but had a bump in his troponin consistent with non-ST elevation myocardial infarction and therefore it was felt that he was at high risk for cardiovascular morbidity and mortality and he was suggested to have a cardiac catheterization. Risks of the procedure, stroke, AR, and vascular complications were explained. The patient agrees to proceed. The patient was brought to the catheterization lab in fasting state. He was given conscious IV sedation with Versed and fentanyl. Right groin was infiltrated with 2% lidocaine using a modified Seldinger technique. Single arterial puncture was performed. A 6 Angolan sheath was placed in the right femoral artery. It was flushed appropriately. Using 6-Angolan JL4, JR4 and pigtail catheters, cineangiograms were obtained. The aortic valve was crossed. FINDINGS: Left main is essentially nonexistent. Left anterior descending artery is a large vessel which reaches the apex. In the proximal to mid LAD, there is an 80% stenosis seen at the takeoff of a moderate sized diagonal branch. There are serial 60% stenoses in the mid LAD. These occur before and after a modest sized second diagonal branch which has 60-70% ostial stenosis. In the mid to distal vessel, there is a long 60% stenosis noted. The circumflex is a large, dominant vessel. It gives off multiple good sized marginal branches and terminates in a relatively large PDA branch. Circumflex and its branches have only mild luminal irregularities. The right coronary artery is small and nondominant. Mild luminal irregularities are noted. LEFT VENTRICULOGRAM: The estimated ejection fraction is 60%. No wall motion abnormalities are detected. PRESSURES: LV is 110/17, aorta is 120/70. CONCLUSIONS: The patient has severe disease in the left anterior descending artery and will be referred to interventional cardiology for percutaneous revascularization. Allen Biggs DO D#: [id number] C#: [id number] <Electronically signed by Allen Biggs DO> 03/02/17 0816 CONSULTATION REPORT Observed: 02/28/2017 Status: F Source: [place] 5:01 PM [facility] Patient: EVARISTO HAYNES [address] MR#: [id number] [place], [place] [address] : 1965 Ord. [place]: Dept: PDOC [facility] Consultation Service Dt: 02/28/17 Report#: [id number] Adm Dt: 02/27/17 Dis Dt: Initial Physician Consultation - Consulting Specialty Consulting Specialty: Pulmonary - Consultation Date of Consultation: 02/28/17 Requesting Physician: Allen Biggs Reason for Consult: NSTEMI - PCP/Chief Complaint Chief Complaint: Chest pain - History of Present Illness HPI: This is a 52-year-old male with a past history of hypothyroidism, and hypertension, for which she was not taking his medications, who presented to [facility] yesterday with intermittent chest discomfort. He noticed it for a few days, and said that it was associated with shortness of breath. There is no sharpness to the pain, or radiation. He felt that rest relieved it, and each episode lasted a few minutes at a time. He had no nausea, vomiting. No diaphoresis. No changes in appetite. No fever, chills. He was admitted to the hospital, and when his troponins came back positive, was transferred here for further evaluation and treatment. On admission to the heart center, I was asked to see him in consultation. - Past Medical History Neurological: Head Injury ENT/Eye: Nose Surgery Cardiac: Heart Attack (AR) GI: Bowel Surgery, Diverticulitis Other Musculoskelatal Hx: right hip pain Endocrine: Hypothyroidism - Social History Smoking Status: Current every day smoker Cigarettes per Day: 20 Does Patient Dip or Chew Tobacco: No Alcohol Use: No Use of Substances/Recreational Drugs: No - Family Health History Mother Family Member Hx: Stroke, Heart Disease, COPD, Diabetes Father Family Member Hx: Heart Disease - Allergies Allergies/Adverse Reactions: Allergies Sulfa (Sulfonamide Antibiotics) Allergy (Verified 02/27/17 23:25) Agitation - Medications Home Medications: No Active Medications 02/27/17 [History Last Taken Unknown] Current Medications: Current Medications Acetaminophen (Tylenol) 650 mg PO Q4 PRN PRN Reason: Pain (mild)/Temp above 38.3 C Last Admin: 02/28/17 09:34 Dose: 650 mg Al Hydrox/Mg Hydrox/Simethicone (Mylanta Ii) 15 ml PO Q4 PRN PRN Reason: Dyspepsia Aspirin (Aspirin, Baby (Chewable)) 81 mg PO DAILY [facility] Last Admin: 02/28/17 09:08 Dose: 81 mg Atorvastatin Calcium (Lipitor) 80 mg PO DAILY [facility] Last Admin: 02/28/17 09:08 Dose: 80 mg Dextrose (Dextrose Syringe) 25 ml IV Q15M PRN PRN Reason: Hypoglycemia Dextrose (Dextrose Syringe) 50 ml IV Q15M PRN PRN Reason: Hypoglycemia Dextrose (Instant Glucose) 37.5 g PO Q15M PRN PRN Reason: Hypoglycemia Glucagon (Glucagon) 1 mg IM Q15M PRN PRN Reason: Hypoglycemia Guaifenesin/Dextromethorphan (Robitussin-Dm) 5 ml PO Q4 PRN PRN Reason: Cough Heparin Sodium 25,000 units/ (Dextrose) 250 mls @ 13.36 mls/hr IV .[id number] FANNIE ; 12 UNITS/KG/HR PRN Reason: Protocol Stop: 03/01/17 03:00 Last Titration: 02/28/17 09:43 Dose: 10.77 units/kg/hr, 12 mls/hr Sodium Chloride (Sodium Chloride 0.9%) 1,000 mls @ 100 mls/hr IV .Q10H [facility] Magnesium Hydroxide (Mom) 2,400 mg PO DAILY PRN PRN Reason: Constipation Melatonin (Melatonin) 3 mg PO QHS PRN PRN Reason: INSOMNIA Metoprolol Tartrate (Lopressor) 25 mg PO Q12 [facility] Last Admin: 02/28/17 09:08 Dose: 25 mg Ondansetron HCl (Zofran) 4 mg IV Q6 PRN PRN Reason: Nausea Ticagrelor (Brilinta) 90 mg PO Q12 [facility] Last Admin: 02/28/17 09:08 Dose: 90 mg - Diagnostic Studies Lab Data: Labs (last 24 hrs) 02/28/17 02/28/17 08:20 04:00 WBC 11.4 H RBC 4.70 Hgb 13.9 Hct 43.6 MCV 92.8 MCH 29.6 MCHC 31.9 L RDW 14.0 Plt Count 304 MPV 9.1 Immature Gran % (Auto) 0.5 Neut % (Auto) 57 Lymph % (Auto) 26 [place] % (Auto) 9 H Eos % (Auto) 6 H Baso % (Auto) 1 Nucleat RBC Rel Count 0.0 Immature Gran # (Auto) 0.1 Neut # (Auto) 6.5 Lymph # (Auto) 3.0 [place] # (Auto) 1.0 H Eos # (Auto) 0.7 H Baso # (Auto) 0.1 Hemoglobin A1c 5.9 Uric Acid 5.8 Troponin I 0.495 H* Triglycerides 105 159 H Cholesterol 177 168 LDL Cholesterol 116 97 HDL Cholesterol 40 40 Cholesterol/HDL Ratio 4.43 4.20 25-OH Vitamin D Total 15.10 - Subjective Narrative ROS: Review of Systems completed. - Review of Systems Constitutional: Reports: no symptoms Eyes: Reports: no symptoms ENT: Reports: no symptoms Respiratory: Reports: shortness of breath, SOB with exertion. Denies: cough, orthopnea, SOB at rest, stridor, wheezing Cardiovascular: Reports: chest pain, dyspnea on exertion. Denies: palpitations , orthopnea, edema, syncope, paroxysmal nocturnal dyspnea Gastrointestinal: Reports: no symptoms Genitourinary Exam M/F: Reports: no symptoms Musculoskeletal: Reports: no symptoms Integumentary: Reports: no symptoms Neurological: Reports: no symptoms Psychiatric: Reports: no symptoms Endocrine: Reports: no symptoms reported Hematological/Lymphatic: Reports: no symptoms Allergic/Immunologic: Reports: no symptoms - I O/Vital Signs I O/VS: Intake/Output/Wt 02/25/17 02/26/17 02/27/17 02/28/17 23:59 23:59 23:59 23:59 Intake Total 1372.767 Output Total 1000 Balance 372.767 Weight 111.4 kg Intake: Intake 592.767 Heparin Sodium 25,000 92.767 UNITS In Dextrose 5% 250 ML @ 12 UNITS/KG/HR 13.36 mls/hr IV .[id number] [facility] Rx#:[id number] Sodium Chloride 0.9% 500 500 ML @ Wide Open IV .Q0M ONE Rx#:[id number] Oral 780 Output: Urine 1000 Void 1000 Other: Height 1.73 m Continent of Bowel Yes Stool Characteristics Soft Formed Brown Stool Size Moderate Vital Signs (last 24 hrs) Temp Pulse Resp BP Pulse Ox 02/28/17 14:00 36.5 C 64 16 138/76 97 02/28/17 12:11 36.2 C L 56 L 16 112/68 98 02/28/17 09:08 63 126/75 02/28/17 08:14 35.9 C L 54 L 16 128/74 100 02/28/17 08:00 56 L 02/28/17 05:10 36.4 C L 57 L 22 116/83 97 02/28/17 04:00 56 L 02/28/17 03:00 56 L 12 87/49 L 100 02/28/17 02:00 58 L 20 94/64 02/28/17 01:00 36.0 C L 58 L 17 91/66 99 02/28/17 00:00 64 20 110/60 97 02/27/17 23:24 36.3 C L 68 23 98 Bowel Movements Number of Continent Bowel 1 Movements Oxygen: Oxygen O2 Sat by Pulse Oximetry 97 Oxygen Delivery Method Room Air Oxygen Flow Rate 3 - Physical Exam Constitutional: Positive: alert, in no apparent distress HEENT: Positive: head normal inspection, PERRL, EOMI Neck: Positive: no JVD Respiratory: Positive: normal lung sounds bilaterally Cardiovascular: Positive: regular rate, normal rhythm GI/Abdominal: Positive: soft, nontender, nondistended, no organomegaly palpable , normal bowel sounds : Positive: deferred Extremities: Positive: normal capillary refill, no edema, no cellulitis, bilateral pulses positive Neurological: Positive: alert, oriented X3 (And grossly nonfocal) Integumentary: Positive: warm, dry Psychiatric: Positive: normal affect - Assessment and Plan (1) Tobacco use disorder Status: Acute Current Visit: Yes (2) Non-STEMI (non-ST elevated myocardial infarction) Status: Acute Current Visit: Yes (3) Hypothyroidism Status: Chronic Current Visit: Yes - Comments Impression Comments: 02/28/17 17:05 * Monitor in the heart center * Aspirin, Brilinta * Heparin drip * Metoprolol, and monitor heart rate/blood pressure * Lipitor * Supplemental oxygen as needed to maintain saturation above 92%. Plans for cardiac catheterization in a.m. PARTIAL THROMBOPLASTIN Collected: 02/28/2017 Status: F Source: [place] TIME $ 3:50 PM [facility] REPOSITORY TYPE CODE TESTS RESULT OUT OF REFERENCE UNITS RANGE LAB PTT 22.5-31.3 sec Partial High Thromboplastin Time 49 $ Result Comment: Therapeutic range: 52.6-80.3 Performed By: #### PTT #### [facility] [address] [place] [address] HISTORY AND PHYSICAL Observed: 02/28/2017 Status: F Source: [place] 9:01 AM [facility] Patient: EVARISTO HAYNES [address] MR#: [id number] [place], [place] [address] : 1965 Ord[address] Daigle: Dept: PDOC [facility]: [facility]-1 History Physical Service Dt: 02/28/17 Report#: [id number] Adm Dt: 02/27/17 Dis Dt: History and Physical - Admit Order Information Status/Length of Stay: Full Admit, Anticipated Length of Stay >2 Midnights Location: Heart Center - Date of Service Date of Service: 02/28/17 - PCP/Chief Complaint Chief Complaint: Chest pain - Patient Information HPI/ROS/Exam: 52-year-old male with a history of untreated hypothyroidism but no known coronary artery disease presented to [facility] in [place] yesterday with chest discomfort which was intermittent. He did have some associated shortness of breath. He initially was placed in the CDU there however his second troponin was elevated and therefore he was transferred to [place]. The patient now pain-free. He denies any other recent chest discomfort or prior cardiac evaluation. He does smoke. Father had 2 stents in his 60s. No history of bleeding abnormalities. Review of Systems: Pertinent positives and negatives are stated within HPI, all other systems reviewed and are negative. Constitutional: No recent weight loss no fevers no chills Eyes: Normal ENT: Normal Cardiovascular: Chest pain Respiratory: Shortness breath and tobacco use GI: Normal Musculoskeletal: Normal Endocrine: No diabetes, positive thyroid disease Psych: No anxiety, no depression Neuro: No CVA, no seizures Skin: No rash, no lesions : Normal PHYSICAL EXAM: Constitutional/General: Alert and oriented x3, well appearing, nontoxic, and in NAD. Obese Head: Normocephalic and atraumatic Eyes: PERRL, EOMI, conjunctive normal, sclera non icteric Mouth: Oropharynx clear Neck: No increased JVP,no carotid bruits. Respiratory: Lungs clear to auscultation bilaterally, no wheezes, rales, or rhonchi, not in respiratory distress Cardiovascular: Regular rate, regular rhythm, no murmurs, gallops, or rubs, PMI nondisplaced, 2+ distal pulses. 2 for right femoral pulse Chest: No chest wall tenderness GI: Abdomen soft, nontender, nondistended, + BS, no organomegaly, no palpable masses, no rebound, guarding, or rigidity Musculoskeletal: Moves all extremities x4, warm and well perfused, no clubbing , cyanosis, or edema, cap refill <3 seconds Integument: Skin warm and dry, no rashes Lymphatic: No lymphadenopathy noted Neurologic: No focal deficits Psychiatric: Normal affect Vital Signs, Nursing Notes, Allergies, and Medications reviewed by me. Cardiac: Heart Attack (AR) Neurological: Head Injury ENT/Eye: Nose Surgery GI: Bowel Surgery, Diverticulitis Other Musculoskelatal Hx: right hip pain Endocrine: Hypothyroidism - Social History Smoking Status: Current every day smoker Cigarettes per Day: 18 Alcohol Use: No Use of Substances/Recreational Drugs: No - Family Health History Mother Family Member Hx: Stroke, Heart Disease, COPD, Diabetes Father Family Member Hx: Heart Disease - Allergies Allergies/Adverse Reactions: Allergies Sulfa (Sulfonamide Antibiotics) Allergy (Verified 02/27/17 23:25) Agitation - Medications Home Medications: No Active Medications 02/27/17 [History Last Taken Unknown] - Diagnostic Studies Lab Data: Labs (last 24 hrs) 02/28/17 04:00 WBC 11.4 H RBC 4.70 Hgb 13.9 Hct 43.6 MCV 92.8 MCH 29.6 MCHC 31.9 L RDW 14.0 Plt Count 304 MPV 9.1 Immature Gran % (Auto) 0.5 Neut % (Auto) 57 Lymph % (Auto) 26 [place] % (Auto) 9 H Eos % (Auto) 6 H Baso % (Auto) 1 Nucleat RBC Rel Count 0.0 Immature Gran # (Auto) 0.1 Neut # (Auto) 6.5 Lymph # (Auto) 3.0 [place] # (Auto) 1.0 H Eos # (Auto) 0.7 H Baso # (Auto) 0.1 Troponin I 0.495 H* Triglycerides 159 H Cholesterol 168 LDL Cholesterol 97 HDL Cholesterol 40 Cholesterol/HDL Ratio 4.20 EKG: EKG #1 with sinus tachycardia with mild lateral ST depression Follow-up EKG with sinus rhythm with no acute ST-T changes Radiology: Chest x-ray with no CHF or infiltrates Other: Telemetry with sinus rhythm - Subjective Narrative ROS: Review of Systems completed. - Vital Signs Vitals: Vital Signs (last response) Temperature 35.9 C L 02/28/17 08:14 Pulse/Heart Rate 54 L 02/28/17 08:14 Respiratory Rate 16 02/28/17 08:14 Blood Pressure 128/74 02/28/17 08:14 O2 Sat by Pulse Oximetry 100 02/28/17 08:14 - Assessment and Plan (1) Non-STEMI (non-ST elevated myocardial infarction) Status: Acute Current Visit: Yes (2) Hypothyroidism Status: Chronic Current Visit: Yes (3) Family history of coronary artery disease Status: Chronic Current Visit: Yes - Comments Impression Comments: 02/28/17 09:07 52-year-old male with history of tobacco abuse and familial coronary disease and untreated hypothyroidism presented to the emergency department initially at [facility] with intermittent chest pain associated with shortness of breath. He ultimately ruled in for small non- ST elevation AR and was transferred to [facility] for additional evaluation treatment. The patient is currently pain-free hemodynamically stable in a normal sinus rhythm with no significant EKG changes. Plan will be for a invasive directed management as the patient did have elevated troponins and transient ST changes which places him at high risk for cardiovascular morbidity and mortality. He will be scheduled for cardiac catheterization in the a.m. in the meantime continue him on beta mary jo aspirin Brilinta statin and heparin. Will monitor closely in the heart center. We'll review his echocardiogram. Dr. Ortiz who in has evaluated him regarding his hypothyroidism. Patient will be hydrated prior to the catheter - Time Spent With Patient Time With Patient: 35 minutes critical care-case was discussed with the transfer team and nursing and cardiac Issues Was Explained to the Patient Review and update is required if H P is greater than twenty- four hours. The patient was examined, the H P was reviewed. __ No Changes __ Changes noted below: Date/Time Attending Physician PARTIAL THROMBOPLASTIN Collected: 02/28/2017 Status: F Source: [place] TIME $ 8:20 AM [facility] REPOSITORY TYPE CODE TESTS RESULT OUT OF REFERENCE UNITS RANGE LAB PTT 22.5-31.3 sec Partial High Thromboplastin Time 41 $ Result Comment: Therapeutic range: 52.6-80.3 Performed By: #### PTT #### [facility] [address] [place] [address] HEMOGLOBIN A1C Collected: 02/28/2017 Status: F Source: [place] 8:20 AM [facility] REPOSITORY TYPE CODE TESTS RESULT OUT OF REFERENCE UNITS RANGE LAB HA1C 4.4-6.3 % Hemoglobin A1c 5.9 Performed By: #### HA1C, URIC, LDLP, VITD, ATHYAB, ATHYMA #### [facility] [address] [place] [address] URIC ACID, SERUM Collected: 02/28/2017 Status: F Source: [facility] 8:20 AM [facility] REPOSITORY TYPE CODE TESTS RESULT OUT OF RANGE REFERENCE UNITS LAB URIC 3.5-7.2 mg/dL Uric 5.8 Acid, Serum Performed By: #### HA1C, URIC, LDLP, VITD, ATHYAB, ATHYMA #### [facility] [address] [place] [address] LIPID PROFILE Collected: 02/28/2017 Status: F Source: [place] 8:20 [facility] REPOSITORY TYPE CODE TESTS RESULT OUT OF REFERENCE UNITS RANGE LAB TRIG 30-150 mg/dL Triglycerides, 105 Serum LAB CHOL 0-200 mg/dL Cholesterol $ 177 LAB LDL 0-130 mg/dL LDL Cholesterol 116 LAB HDL 39-96 mg/dL HDL Cholesterol 40 LAB CHR 0-6.9 Cholesterol/HDL 4.43 Ratio Result Comment: CHD Risk: Men Women Lowest <3.8 <2.9 Low 3.9-4.7 3.0-3.6 Average 4.8-5.9 3.7-4.6 Moderate 6.0-6.9 4.7-5.6 High >6.9 >5.6 Performed By: #### HA1C, URIC, LDLP, VITD, ATHYAB, ATHYMA #### [facility] [address] [place] [address] VITAMIN D Collected: 02/28/2017 Status: F Source: [place] 8:20 AM [facility] REPOSITORY TYPE CODE TESTS RESULT OUT OF REFERENCE UNITS RANGE LAB VITD ng/mL Vitamin D 15.10 Result Comment: Classification of 25 [place] Vitamin D status: Deficiency: <20 ng/mL Insufficiency/Moderate Deficiency: 20-30 ng/mL Sufficiency/Optimal Level: 30-100 ng/mL Toxicity: >100 ng/mL Performed By: #### HA1C, URIC, LDLP, VITD, ATHYAB, ATHYMA #### [address] [address] ANTI THYROGLOBULIN AB Collected: 02/28/2017 Status: F Source: [place] 8:20 AM [facility] REPOSITORY TYPE CODE TESTS RESULT OUT OF REFERENCE UNITS RANGE LAB ATHYAB 0-40 IU/mL Anti Thyroglobulin Ab <20 Result Comment: Performing Site: [facility] - [address] [place] [address] Performed By: #### HA1C, URIC, LDLP, VITD, ATHYAB, ATHYMA #### [address] [address] THYROID MICROSOMAL AB Collected: 02/28/2017 Status: F Source: [place] 8:20 AM [facility] REPOSITORY TYPE CODE TESTS RESULT OUT OF REFERENCE UNITS RANGE LAB ATHYMA 0-34 IU/mL Thyroid Microsomal Ab <10 Result Comment: Performing Site: [facility] - [address] [place] [address] Performed By: #### HA1C, URIC, LDLP, VITD, ATHYAB, ATHYMA #### [address] [address] ECHOCARDIOGRAM Observed: 02/28/2017 Status: F Source: [place] 8:16 AM [facility], [address] [place] [id number] and TRANSTHORACIC ECHOCARDIOGRAM REPORT Patient Name: EVARISTO Espinosa Physician: EZIO Biggs DO Study Date: 02/28/2017 Referring Allen Biggs Physician: MRN/PID: [id number] PCP: Patient Department Location: Accession/Order#: [id number] Patient Location: 1HEART Date of : 1965 52 Nurse: years Gender: M Dispute Specialist: Maxwell Gray Admission Status: CC Report to: CVC Height: 173.00 cm CC Report to: Weight: 111.00 kg CC Report to: BSA: 2.23 m2 Study Type: Echo Blood Pressure: 116 /83 mmHg Diagnosis/ICD: I21.4 - Non-ST elevation (NSTEMI) myocardial infarction Indication: Procedure/CPT: Echo Complete w/Full Doppler (53041) Study Detail: The following Echo studies were performed: 2D, M-Mode, Doppler and color flow. PHYSICIAN INTERPRETATION: Left Ventricle: The left ventricular systolic function is normal, with an estimated ejection fraction of 60-65%. The left ventricular chamber size is normal. The left ventricular cavity size is normal. There is there is evidence of borderline of left ventricular hypertrophy concentric left ventricular hypertrophy. Left ventricular diastolic filling was indeterminate. Left Atrium: The left atrium is normal in size. Increased thickness of the atrial septum (sparing the fossa ovalis) is present. This is consistent with lipomatous hypertrophy of the atrial septum. Right Ventricle: The right ventricle is normal in size. There is normal right ventricular global systolic function. Right Atrium: The right atrium is normal in size. Aortic Valve: The aortic valve is trileaflet. There is trivial aortic valve regurgitation. The peak instantaneous gradient of the aortic valve is 8.3 mmHg. Mitral Valve: The mitral valve is normal in structure. There is no evidence of mitral valve regurgitation. Tricuspid Valve: The tricuspid valve is structurally normal. There is trace tricuspid regurgitation. The doppler estimated RVSP is slightly elevated at 31.1 mmHg. Pulmonic Valve: The pulmonic valve is structurally normal. There is no indication of pulmonic valve regurgitation. Pericardium: There is no pericardial effusion noted. Aorta: The aortic room is normal. Pulmonary Artery: The main pulmonary artery is normal in size, and position, with normal bifurcation into the left and right pulmonary arteries. CONCLUSIONS: 1. The left ventricular systolic function is normal with a 60-65% estimated ejection fraction. 2. There is a no pericardial effusion. 3. Slightly elevated RVSP. 4. Lipomatous hypertrophy of the atrial septum. QUANTITATIVE DATA SUMMARY: 2D MEASUREMENTS: Normal Ranges: Ao Root: 3.1 cm (2.0-3.7cm) LAs: 3.36 cm (2.7-4.0cm) RVIDd: 3.13 cm (0.9-3.6cm) IVSd: 1.28 cm (0.6-1.1cm) LVPWd: 1.31 cm (0.6-1.1cm) LVIDd: 4.95 cm (3.9-5.9cm) LVIDs: 3.14 cm LV Mass Index: 115.4 g/m2 LV % FS 36.7 % AORTA MEASUREMENTS: Normal Ranges: Asc Ao, d: 2.52 cm (2.1-3.4cm) LV DIASTOLIC FUNCTION: Normal Ranges: MV Peak E: 0.96 m/s (0.7-1.2 m/s) MV Peak A: 0.70 m/s (0.42-0.7 m/s) E/A Ratio: 1.38 (1.0-2.2) MITRAL VALVE: Normal Ranges: MV DT: 169 msec (150-240msec) AORTIC VALVE: Normal Ranges: AoV Vmax: 1.44 m/s (<1.7m/s) AoV Peak P.3 mmHg (<20mmHg) LVOT Max Reilly: 1.09 m/s (<1.1m/s) TRICUSPID VALVE/RVSP: Normal Ranges: Peak TR Velocity: 2.30 m/s RV Syst Pressure: 31.1 (< 30mmHg) IVC Diam: 2.33 cm AORTA: Asc Ao Diam 2.52 cm EZIO Biggs DO Electronically signed on 02/28/2017 at 2:33:20 PM Wall Scoring Final CONSULTATION REPORT Observed: 02/28/2017 Status: F Source: [place] 6:19 AM [facility] Patient: EVARISTO HAYNES [address] MR#: [id number] [place], [place] [address] : 1965 OrdNevin Daigle: Dept: PDOC Loc: 1HEART 180-1 Consultation Service Dt: 02/28/17 Report#: [id number] Adm Dt: 02/27/17 Dis Dt: 03/03/17 Initial Physician Consultation - Consulting Specialty Consulting Specialty: Endocrinology - Consultation Date of Consultation: 02/28/17 Reason for Consult: hypothyroidism - History of Present Illness HPI: The patient is 52 y o white man who has had few min of CP and presented to OSH where he was diagnosed with NSTEMI and transferred over for availability of cardiac cath in this hospital. Patient has been known to have thyroid disease since 2001. A, apparently was started on Synthroid 300 ?g daily until 2013 when he relocated from the [place] to [place]. This is when he stopped taking his medication because he thought that it may not make a difference. He did not give me at an explanation why he stopped taking it. But he felt sluggish, cold, constipated, dry skin etc. When the patient presented to [facility], a TSH was 8.10, (normal 0.30-5.60M international units per mL), free T3 was 3.7 (Normal 2.5-3.9 pg per mL), and free T4 was 0.66 [normal 0.58-1.64 ng/dL). Family history both parents have thyroid disease. Father had high blood pressure. Mother had heart disease and diabetes type 2. Both are alive. Social history patient is single. Has a grownup kids. No thyroid disease. He does not drink but smokes. He works in [employer]. He has exposure to aluminum silicate. Past medical history Diverticulosis Hypothyroidism Hypertension Arthritis Past surgical history Appendectomy Tonsillectomy Septum reconstruction Colon surgery Colonoscopy Uvulectomy - Past Medical History Neurological: Head Injury ENT/Eye: Nose Surgery Cardiac: Heart Attack (AR) GI: Bowel Surgery, Diverticulitis Other Musculoskelatal Hx: right hip pain Endocrine: Hypothyroidism - Social History Smoking Status: Current every day smoker Cigarettes per Day: 18 Alcohol Use: No Use of Substances/Recreational Drugs: No - Family Health History Mother Family Member Hx: Stroke, Heart Disease, COPD, Diabetes Father Family Member Hx: Heart Disease - Allergies Allergies/Adverse Reactions: Allergies Sulfa (Sulfonamide Antibiotics) Allergy (Verified 02/27/17 23:25) Agitation - Medications Home Medications: No Active Medications 02/27/17 [History Last Taken Unknown] Current Medications: Current Medications Aspirin (Aspirin, Baby (Chewable)) 81 mg PO DAILY FANNIE Atorvastatin Calcium (Lipitor) 80 mg PO DAILY FANNIE Heparin Sodium 25,000 units/ (Dextrose) 250 mls @ 13.36 mls/hr IV .[id number] FANNIE ; 12 UNITS/KG/HR PRN Reason: Protocol Last Titration: 02/28/17 02:17 Dose: 9.87 units/kg/hr, 11 mls/hr Metoprolol Tartrate (Lopressor) 25 mg PO Q12 FANNIE Ticagrelor (Brilinta) 90 mg PO Q12 FANNIE - Diagnostic Studies Lab Data: Labs (last 24 hrs) 02/28/17 04:00 WBC 11.4 H RBC 4.70 Hgb 13.9 Hct 43.6 MCV 92.8 MCH 29.6 MCHC 31.9 L RDW 14.0 Plt Count 304 MPV 9.1 Immature Gran % (Auto) 0.5 Neut % (Auto) 57 Lymph % (Auto) 26 [place] % (Auto) 9 H Eos % (Auto) 6 H Baso % (Auto) 1 Nucleat RBC Rel Count 0.0 Immature Gran # (Auto) 0.1 Neut # (Auto) 6.5 Lymph # (Auto) 3.0 [place] # (Auto) 1.0 H Eos # (Auto) 0.7 H Baso # (Auto) 0.1 Troponin I 0.495 H* Triglycerides 159 H Cholesterol 168 LDL Cholesterol 97 HDL Cholesterol 40 Cholesterol/HDL Ratio 4.20 - Subjective Narrative ROS: Review of Systems completed. - Review of Systems Constitutional: Reports: no symptoms Eyes: Reports: no symptoms, other (Has bags underneath his) ENT: Reports: no symptoms Respiratory: Reports: SOB with exertion, other (Possible sleep apnea) Cardiovascular: Reports: chest pain Gastrointestinal: Reports: constipation Genitourinary Exam M/F: Reports: other (ED) Musculoskeletal: Reports: arthralgia, myalgia Integumentary: Reports: no symptoms Neurological: Reports: no symptoms Psychiatric: Reports: no symptoms - I O/Vital Signs I O/VS: Intake/Output/Wt 02/25/17 02/26/17 02/27/17 02/28/17 23:59 23:59 23:59 23:59 Intake Total 811 Output Total 525 Balance 286 Weight 111.4 kg Intake: Intake 511 Heparin Sodium 25,000 11 UNITS In Dextrose 5% 250 ML @ 12 UNITS/KG/HR 13.36 mls/hr IV .[id number] FANNIE Rx#:[id number] Sodium Chloride 0.9% 500 500 ML @ Wide Open IV .Q0M ONE Rx#:[id number] Oral 300 Output: Urine 525 Void 525 Other: Height 1.73 m Vital Signs (last 24 hrs) Temp Pulse Resp BP Pulse Ox 02/28/17 05:10 36.4 C L 57 L 22 116/83 97 02/28/17 04:00 56 L 02/28/17 03:00 56 L 12 87/49 L 100 02/28/17 02:00 58 L 20 94/64 02/28/17 01:00 36.0 C L 58 L 17 91/66 99 02/28/17 00:00 64 20 110/60 97 02/27/17 23:24 36.3 C L 68 23 98 02/27/17 11:00 68 12 151/91 H 98 Oxygen: Oxygen O2 Sat by Pulse Oximetry 97 Oxygen Delivery Method Nasal Cannula Oxygen Flow Rate 3 - Physical Exam Constitutional: Positive: alert, in no apparent distress HEENT: Positive: head normal inspection, EOMI, mucous membranes dry Neck: Positive: Supple, no thyromegaly Adenopathy: Positive: No Regional Adenopathy Respiratory: Positive: normal lung sounds bilaterally Cardiovascular: Positive: regular rate, normal rhythm, normal heart sounds GI/Abdominal: Positive: soft, nontender, normal bowel sounds Extremities: Positive: normal inspection, no edema Neurological: Positive: alert, oriented X3 Integumentary: Positive: warm, dry - Comments Impression Comments: 02/28/17 06:35 Hypothyroidism. TSH is elevated. Free T4 is low-normal. FT3 is normal. We'll add thyroid antibodies. I'm not rushing and putting him on Synthroid at this point to find out what's the severity of his coronary artery disease. No evidence for diabetes. However I would like to screen him with an A1c. Possible hyperlipidemia especially in the presence of elevated TSH. Lipid profile will be ordered. Diverticulosis-constipation. Possibly hypothyroidism is contributing to this problem as well. NSTEMI. Awaiting cardiology input. Hypertension. COMPLETE BLOOD COUNT Collected: 02/28/2017 Status: F Source: [place] W/DIFF $$ 4:00 AM [facility] REPOSITORY TYPE CODE TESTS RESULT OUT OF REFERENCE UNITS RANGE LAB WBC 4.0-11.0 10 3/uL White Blood High Count 11.4 LAB RBC 4.5-6.0 10 6/uL Red Blood Count 4.70 LAB HGB 13.0-17.3 g/dL Hemoglobin 13.9 LAB HCT 39-50 % Hematocrit 43.6 LAB MCV 80-100 fL Mean Corpuscular Volume 92.8 LAB MCH 27-34 pg Mean Corpuscular 29.6 Hemoglobin LAB MCHC 33-37 g/dL Low Mean Corpuscular Hgb 31.9 Conc LAB RDW 11.5-14.5 % Red Cell Distribution Width 14.0 LAB PLT 150-400 10 3/uL Platelet Count 304 LAB MPV 7.4-10.4 fL Mean Platelet Volume 9.1 LAB NE% 42-76 % Neutrophils (Auto) 57 LAB LY% 24-44 % Lymphocytes (Auto) 26 LAB MO% 1-8 % Monocytes High (Auto) 9 LAB EO% 0-3 % Eosinophils High (Auto) 6 LAB BA% 0-1 % Basophils (Auto) 1 LAB IG% 0.0-1.2 % Immature Granulocytes 0.5 (Auto) LAB NRBC% 0.0-0.2 % Nucleated RBC 0.0 LAB NE# 1.8-7.0 10 3/uL Neutrophils # (Auto) 6.5 LAB LY# 1-3.5 10 3/uL Lymphocytes # (Auto) 3.0 LAB MO# 0.04-0.9 10 3/uL Monocytes # High (Auto) 1.0 LAB EO# 0.03-0.6 10 3/uL Eosinophils # High (Auto) 0.7 LAB BA# 0.04-0.9 10 /uL Basophils # (Auto) 0.1 LAB IG# 10 3/uL Immature Gran# (Auto) 0.1 Performed By: #### CBC, TROP, LDLP #### [address] [address] TROPONIN I Collected: 02/28/2017 Status: F Source: [place] 4:00 AM [facility] REPOSITORY TYPE CODE TESTS RESULT OUT OF REFERENCE UNITS RANGE LAB TROP 0.00-0.045 ng/mL High alert Troponin I 0.495 Result Comment: Results called, Read Back and verified to [facility] AT 0448 [id number] Performed By: #### CBC, TROP, LDLP #### [address] [address] LIPID PROFILE Collected: 02/28/2017 Status: F Source: [place] 4:00 AM [facility] REPOSITORY TYPE CODE TESTS RESULT OUT OF REFERENCE UNITS RANGE LAB TRIG 30-150 mg/dL High Triglycerides, 159 Serum LAB CHOL 0-200 mg/dL Cholesterol $ 168 LAB LDL 0-130 mg/dL LDL Cholesterol 97 LAB HDL 39-96 mg/dL HDL Cholesterol 40 LAB CHR 0-6.9 Cholesterol/HDL 4.20 Ratio Result Comment: CHD Risk: Men Women Lowest <3.8 <2.9 Low 3.9-4.7 3.0-3.6 Average 4.8-5.9 3.7-4.6 Moderate 6.0-6.9 4.7-5.6 High >6.9 >5.6 Performed By: #### CBC, TROP, LDLP #### [facility] [address], [place] [id number] PARTIAL THROMBOPLASTIN Collected: 02/28/2017 Status: F Source: [place] TIME $ 12:54 AM [facility] REPOSITORY Order Comment: Is patient on anticoagulants? Y TYPE CODE TESTS RESULT OUT OF REFERENCE UNITS RANGE LAB PTT 22.5-31.3 sec Partial High Thromboplastin Time 43 $ Result Comment: Therapeutic range: 52.6-80.3 Performed By: #### PTT #### [address] [address] TROPONIN-I Collected: 02/27/2017 Status: F Source: [facility] 7:51 PM [facility] REPOSITORY TYPE CODE TESTS RESULT OUT OF RANGE REFERENCE UNITS LAB [id number](LO .00-.03 ng/mL INC) Abnormal Alert .17 Troponin-I Result Comment: Critical Result Topponin I: Called to: BRADLEY POST at: 20:09:03 by:GUY Read back by:BRADLEY POST Performed By: #### [id number] #### [facility] [place] [id number] XR CHEST 2 VIEWS Observed: 02/27/2017 Status: F Source: [facility] 4:50 PM [facility] REPOSITORY Exam Date/Time: 02/27/2017 16:55 EST Reason for Exam: Chest pain Report HISTORY: Chest pain. TECHNIQUE: 2 views of the chest were obtained. No prior studies for comparison. FINDINGS: Cardiomediastinal silhouette is within normal limits. Lungs are clear. No significant pleural or osseous abnormalities are identified. IMPRESSION: No acute process identified. FINAL REPORT Dictated: 02/27/2017 5:13 pm Lee Weldon MD Signed (Electronic Signature): 02/27/2017 5:13 pm Signed by: Lee Weldon MD Technologist: TSH Collected: 02/27/2017 Status: F Source: [facility] 4:47 PM [facility] REPOSITORY TYPE CODE TESTS RESULT OUT OF RANGE REFERENCE UNITS LAB [id number](LO 0.30-5.60 mIU/m INC) High TSH 8.10 Performed By: #### [id number] #### [facility] [address] [place] [address] FREE T4 Collected: 02/27/2017 Status: F Source: [facility] 4:47 PM [facility] REPOSITORY TYPE CODE TESTS RESULT OUT OF RANGE REFERENCE UNITS LAB [id number](LO 0.58-1.64 ng/dL INC) Normal T4 Free 0.66 Result Comment: Patients receiving more than 5mg/day of biotin may have interference in test results. A sample should be taken no sooner than eight hours after previous dose. Performed By: #### [id number] #### [address] [place] [address] FREE T3 Collected: 02/27/2017 Status: F [facility]: [facility] [facility] 4:47 PM [facility] REPOSITORY TYPE CODE TESTS RESULT OUT OF RANGE REFERENCE UNITS LAB [id number](LO 2.5-3.9 pg/mL INC) Normal Free T3 3.7 Performed By: #### [id number] #### WILL [facility] [address] [place] [address] CBC W/ AUTO DIFF Collected: 02/27/2017 Status: F Source: [facility] 4:41 PM [facility] REPOSITORY TYPE CODE TESTS RESULT OUT OF RANGE REFERENCE UNITS LAB [id number](L 3.6-11.0 E3/mcL OINC) High WBC 12.7 LAB 61204328(L 3.90-6.10 E6/mcL OINC) Normal RBC 5.23 LAB [id number](L 13.5-18.0 G/DL OINC) Normal Hgb 15.8 LAB 56530865(L 42.0-52.0 % OINC) Normal Hct 46.3 LAB 53423629(L 11.5-14.5 % OINC) Normal RDW 14.3 LAB 59444778(L 27.0-31.0 pg OINC) Normal MCH 30.2 LAB 63812730(L 33.0-37.0 G/DL OINC) Normal MCHC 34.2 LAB 37810127(L 78.0-100.0 fL OINC) Normal MCV 88.5 LAB 47406349(L 7.4-11.0 fL OINC) Low MPV 7.2 LAB 93592978(L 130-400 E3/mcL OINC) Normal Platelet 316 Performed By: #### [id number] #### WILL Villanueva [facility] [place] [address] AUTO DIFF Collected: 02/27/2017 Status: F Source: [facility] 4:41 PM [facility] REPOSITORY Order Comment: Order Added by Discern Expert. TYPE CODE TESTS RESULT OUT OF RANGE REFERENCE UNITS LAB [id number](L 37.0-75.0 % OINC) Normal Neutro Auto 68.4 LAB 82369460(L 20.0-55.0 % OINC) Normal Lymph Auto 20.6 LAB 35373721(L 0.0-10.0 % OINC) Normal [place] Auto 6.9 LAB 74664906(L 0.0-11.0 % OINC) Normal Eos Auto 3.3 LAB 91288862(L 0.0-2.0 % OINC) Normal Basophil Auto 0.8 LAB 02067284(L 1.4-6.5 E3/mcL OINC) High Neutro 8.7 Absolute LAB 77095540(L 1.2-3.4 E3/mcL OINC) Normal Lymph Absolute 2.6 LAB 57498661(L 0.0-0.7 E3/mcL OINC) High [place] Absolute 0.9 LAB 71307997(L 0.0-0.7 E3/mcL OINC) Normal Eos Absolute 0.4 LAB 31320292(L 0.0-0.2 E3/mcL OINC) Normal Basophil 0.1 Absolute Performed By: #### [id number] #### WILL MoultonHemo [address] [place] [address] PT Collected: 02/27/2017 Status: F Source: [facility] 4[facility]41 [facility] TYPE CODE TESTS RESULT OUT OF RANGE REFERENCE UNITS LAB [id number](LO 1.0-1.2 INC) Normal INR 1.1 Result Comment: INR Recommended Therapeuptic Ranges: Prophylaxis/treatment of DVT and PE?2.0-3.0 Prevention of systemic embolism?.2.0-3.0 Mechanical prosthetic values?2.5-3.5 CRITICAL VALUES?.>4.0 LAB 94544851(LOINC) 11.6-14.6 second(s) Normal 13.8 PT Performed By: #### [id number] #### WILL Hematology [employer] [address] [place] [address] PTT Collected: 02/27/2017 Status: F Source: [facility] 4:41 [facility] TYPE CODE TESTS RESULT OUT OF RANGE REFERENCE UNITS LAB [id number](LO 23.2-36.4 second(s) INC) Normal PTT 34.9 Performed By: #### [id number] #### [facility] [address] [place] [address] PTT CONTROL RATIO Collected: 02/27/2017 Status: F Source: [facility] 4:41 [facility] RE[facility] Order Comment: Order added by Discern Expert. TYPE CODE TESTS RESULT OUT OF RANGE REFERENCE UNITS LAB [id number](LO 0.8-1.2 ratio INC) Normal PTT Ratio 1.2 Performed By: #### [id number] #### WILL Hemat[facility] [employer] [employer] [address] [place] [address] BMP Collected: 02/27/2017 Status: F Source: [facility] 4:41 [facility] REPOS[facility] TYPE CODE TESTS RESULT OUT OF RANGE REFERENCE UNITS LAB [id number](L 70-99 mg/dL OINC) Glucose Normal Lvl 81 LAB 46452254(L 8.4-10.2 mg/dL OINC) Calcium Normal Lvl 9.5 LAB 44199583(L 136-145 mEq/L OINC) Low Sodium Lvl 135 LAB 76296913(L 3.5-5.1 mEq/L OINC) Normal Potassium Lvl 3.5 LAB 09201601(L 98-107 mEq/L OINC) Chloride Normal 101 LAB 64808262(L 24.0-30.0 mEq/L OINC) CO2 Normal 27.4 LAB 32084567(L 7-18 mg/dL OINC) High BUN 21 LAB 3026159(LO 0.6-1.3 mg/dL INC) Normal Creatinine 1.1 LAB 65803455(L 5.4-30.0 ratio OINC) Normal BUN/Creat Ratio 19.1 Performed By: #### [id number] #### WILL [facility] [address] [place] [id number] CK Collected: 02/27/2017 Status: F Source: [address] REPOSITORY TYPE CODE TESTS RESULT OUT OF RANGE REFERENCE UNITS LAB [id number](LO 26-140 Int._Unit/L INC) High Total CK 172 Performed By: #### [id number] #### WILL [facility] [address] [place] [address] EGFR Collected: 02/27/2017 Status: F Source: [address] REPOSITORY Order Comment: Order added by Discern Expert. TYPE CODE TESTS RESULT OUT OF RANGE REFERENCE UNITS LAB 83882123(LO mL/min/1.73 INC) m2 Normal eGFR >60 LAB 82005882(LO mL/min/1.73 INC) m2 Normal eGFR AA >60 Performed By: #### [id number] #### WILL [facility] [address] [place] [id number] MAGNESIUM Collected: 02/27/2017 Status: F Source: [place] [address]:[address] [place] [address] REPOSITORY TYPE CODE TESTS RESULT OUT OF RANGE REFERENCE UNITS LAB 86471497(L 1.7-2.8 mg/dL OINC) Normal Magnesium 2.1 Performed By: #### [id number] #### WILL [facility] [address] [place] [id number] D-DIMER Collected: 02/27/2017 Status: F Source: [address] REPOSITORY TYPE CODE TESTS RESULT OUT OF RANGE REFERENCE UNITS LAB [id number](LO <=0.50 mg/L FEU INC) Normal D-Dimer <0.22 Result Comment: Normal D Dimer level indicates no Deep Vein Thrombosis (DVT) or Pulmonary Embolism (PE). Elevated D Dimer level indicates additional studies and clinical assessments are indicated to conclude diagnosis of Deep Vein Thromobsis (DVT) or Pulmonary Embolism (PE). Performed By: #### [id number] #### WILL Hematology Automated Subsection [address] [place] [address] TROPONIN-I Collected: 02/27/2017 Status: F Source: [facility] 4:41 [facility] REPOSITORY TYPE CODE TESTS RESULT OUT OF RANGE REFERENCE UNITS LAB 78133856(LO .00-.03 ng/mL INC) Normal .03 Troponin-I Performed By: #### [id number] #### WILL [facility] [address] [place] [address] CKMB Collected: 02/27/2017 Status: F Source: [facility] 4:41 [facility] REPOSITORY TYPE CODE TESTS RESULT OUT OF RANGE REFERENCE UNITS LAB 53112431(LO 0.0-5.0 ng/mL INC) Normal CK MB 3.2 Performed By: #### [id number] #### [place] [address] BNP. Collected: 02/27/2017 Status: F Source: [facility] 4:41 [facility] REPOSITORY TYPE CODE TESTS RESULT OUT OF RANGE REFERENCE UNITS LAB CD:85610697 <=100 pg/mL 67(LOINC) Normal BNP. 22 Result Comment: Notice: Effective 08/05/2016 the methodology for BNP testing has changed. BNP values less than or equal to 100 pg/mL is considered normal for patients without CHF.The decision threshold was determined by the 95% confidence limit of BNP concentration in the non-CHF population age 55 and older.It is recommended that a new baseline value be established using the new method if monitoring patient's BNP level. Performed By: #### CD:[id number] #### WILL [facility] [address] [place], [place] [address] ALLERGIES ALLERGIES DATE TYPE / CODE NAME / CODE REACTION SEVERITY SOURCE 01/08/2018 Drug Sulfa Other Unknown [facility] Allergy/4160 (Sulfonamide [facility] 81471(SNOMED Antibiotics)/ Repository CT) [id number](RX NORM) 01/02/2014 Drug codeine/F0060 Other Unknown [facility] Allergy/4160 13641(RXNORM) Hospital 83669(SNOMED Repository CT) Drug/8795843 sulfa drugs FROM [facility] 03([facility] CT) System Repository ENCOUNTERS ENCOUNTERS ADMIT/DISCHARGE ACCOUNT NUMBER ADMITTING ENCOUNTER LOCATION SOURCE CLASS 01/24/2018 [id number] Ambulatory [facility] ding:POLAB3 Repository 01/08/2018/01/09/20 [id number] Emergency [address] ding:ED Repository 11/29/2017/11/30/19 [id number] Ambulatory BMSBuilding: [place] 18 BMS.[facility] Repository 10/20/[id number] [facility] ding:POLAB3 Repository 09/27/2017 [id number] Ambulatory [facility] ding:CT Repository 09/27/[id number] [facility] ding:LAB.FUT Repository URE 07/20/[id number] [facility] ding:POLAB3 Repository 05/31/[id number] [facility] ding:POLAB3 Repository 05/26/2017/05/27/19 [id number] Ambulatory BMSBuilding: [place] 18 BMS.[facility] Repository 05/25/2017 [id number] Ambulatory BMSBuilding: [place] BMS.[facility] Repository 04/19/2017 [id number] Ambulatory [facility] ding:POLAB3 Repository 02/27/2017/03/03/19 [id number] [place], Inpatient PCGBuilding: [place] 18 [place] Encounter 1HEARTRoom: Community 180Bed: [facility] Repository 02/27/2017/02/27/19 [id number] [facility], Ambulatory [facility] 18 [facility] ding:[facility] EDRoom: Repository FZT15Smj: CD:[id number] 02/27/[id number] Repository PAYERS PAYERS ENCOUNTER GUARANTOR PAYER SUBSCRIBER SOURCE 01/24/2018 EVARISTO Noonan [id number] CR Insurance:GPATPA LEROYERDOB: Community 1951HAKEEM CERCOPolicy Number: [id number] [facility], [place] [address]Ebe: [id number] Repository Date:1926-91-27[address] () [address]FD, [place] [address]HC: 01/24/2018 Secondary NOT GIVENUNK [place] Insurance:SELF PAY Community INSURANCEPolicy Number: Hospital Effective Repository Date:2017-12-16 01/08/2018 EVARISTO Noonan [id number] CR Insurance:GPATPA LEROYERDOB: Community 1951[place][birth year] CERCOPolicy Number: [id number] [facility], [place] [address]Vus: [id number] Repository Date:3105-47-34C[address] () [address], [place] [address]WI: 01/08/2018 Secondary NOT GIVENUNK [place] Insurance:SELF PAY Community INSURANCEPolicy Number: Hospital Effective Repository Date:2018-01-08 11/29/2017 EVARISTO Noonan [id number] CR Insurance:GPATPA LEROYERDOB: Community 1951RICH[birth year] CERCOPolicy Number: [id number] [facility], [place] [address]Kfo: [id number] Repository Date:8279-48-69AH [address] () [address], [place] [address]PW: 11/29/2017 Secondary NOT GIVENUNK [place] Insurance:SELF PAY Community INSURANCEPolicy Number: Hospital Effective Repository Date:2017-11-29 10/20/2017 EVARISTO Agee [place] [id number] CR Insurance:GPATPA LEROYERDOB: Community 1951[place] CERCOPolicy Number: [id number] [place] [address]Cgp: [id number] Repository Date:3700-89-25IC [address]OX (HP) [address]NO, [place] [address]OU: 10/20/2017 Secondary NOT GIVENUNK [place] Insurance:SELF PAY Community INSURANCEPolicy Number: Hospital Effective Repository Date:2017-10-20 09/27/2017 EVARISTO Agee Primary EVARISTO G [place]an [id number] CR Insurance:GPATPA COREYB: Community 1951HAKEEM CERCOPolicy Number: [id number] [place] [address]Eqb: [id number] Repository Date:6828-10-24CZ BOX (HP) [address]JNBC, [place] [address]XB: 09/27/2017 Secondary NOT GIVENUNK [place] Insurance:SELF PAY Community INSURANCEPolicy Number: Hospital Effective Repository Date:2017-09-27 09/27/2017 EVARISTO JACOBSDNER88 Primary EVARISTO [place] CR Insurance:GPATPA LEROYERDOB: Community MARTHA CERCOPolicy Number: [id number] [place] [address]Izz: [id number] Repository Date:5634-61-94TV BOX (HP) [address]WD, [place] [address]MO: 09/27/2017 Secondary NOT GIVENUNK [place] Insurance:SELF PAY Community INSURANCEPolicy Number: Hospital Effective Repository Date:2017-08-04 07/20/2017 EVARISTO JACOBSDNER88 Primary EVARISTO Saran CR Insurance:CHENGTPA DALLASDOB: Community MARTHA CERCOPolicy Number: [id number] [place] [address]Cqz: [id number] Repository Date:5156-66-73CB BOX (HP) 139981KTBXTV, [place] [address]FG: 07/20/2017 Secondary NOT GIVENUNK [place] Insurance:SELF PAY Community INSURANCEPolicy Number: Hospital Effective Repository Date:2017-07-20 05/31/2017 EVARISTO JACOBSDNER88 Primary EVARISTO Saran CR Insurance:CHENGSERGEYPriscila JACOBSKATHERINEB: [facility] MARTHA CERCOPolicy Number: [id number] [facility] [place], [place] [address]Eco: [id number] Repository Date:4966-41-74NB [address] () [address]CMYS, [place] [address]QZ: 05/31/2017 Secondary NOT GIVENUNK [place] Insurance:SELF PAY Community INSURANCEPolicy Number: Hospital Effective Repository Date:2017-04-22 05/26/2017 EVARISTO JACOBSDNER88 Primary EVARISTO Saran CR Insurance:DEVYN NICOLEB: [place] [address] CERCOPolicy Number: [id number] [facility] [place], [place] [address]Xir: [id number] Repository Date:0808-01-93ET [address] () [address]HUWQBJ, [place] [address]VF: 05/26/2017 Secondary NOT GIVENUNK [place] Insurance:SELF PAY Community INSURANCEPolicy Number: Hospital Effective Repository Date:2017-05-26 05/25/2017 EVARISTO JACOBSDNER88 Primary EVARISTO [place] CR Insurance:DEVYN NICOLEB: [facility] MARTHA CERCOPolicy Number: [id number] [facility] [place], [place] [address]Nxq: [id number] Repository Date:1535-82-07SG [address] () 554577QXIAJN, [place] [address]KF: 05/25/2017 Secondary NOT GIVENUNK [place] Insurance:SELF PAY Community INSURANCEPolicy Number: Hospital Effective Repository Date:2017-05-25 04/19/2017 EVARISTO Primary EVARISTO [place] [id number] Insurance:DEVYN NICOLEB: [facility] CERCOPolicy Number: [id number] [address] [id number] Repository [place] [address]Rfk: Date:6941-53-60KS [address] [place] [address] () [address]JN: 04/19/2017 Secondary NOT GIVENUNK [place] Insurance:SELF PAY Community INSURANCEPolicy Number: Hospital Effective Repository Date:2017-04-19 02/27/2017 EVARISTO Agee Primary Insurance:[facility] EVARISTO Agee [place] [address] ([employer] BALDNERDOB: [facility] ADMINSTRATOPolicy [id number] Repository [facility] Number: COUNTRY [facility], [place] [address]Wvz: [id number] [address] [place] [address] Date:[address] , [place] [address]Nce: () [address]2096EWRKJE, [place] [address]WP: (HP) 02/27/2017 EVARISTO Agee [facility] Insurance:COMMERCIAL BALDNERDOB: [facility] INSURANCEPolicy Number: [id number] [facility] Date:2017-02-27 - [address] [place] [address] [place] 7104-85-53Pqxf , [place] [id number]: Name:CD:[id number]: [address] [place] [address] (HP) [address]JT: (HP) () 02/27/2017 EV[facility]ISTO [facility]Do[facility]oB: [facility] BALDNERDOB: [facility] icy Number: [id number] Repository [facility] [id number] Date:Plan Name:[place] [facility] [place] [address]Kri: , [place] [address]Npi: [phone] (ZU) ()
== END ==
PROVIDERS: Family Provider Family Medicine Geriatric Medicine; PCP Family Medicine Geriatric Medicine; Visit Provider Family Medicine Geriatric Medicine
DX: E03.9 Hypothyroidism, unspecified (principal); I10 Essential (primary) hypertension; E55.9 Vitamin D deficiency, unspecified
CPT/HCPCS: 36415; 80053; 82306; 84443; 85025

== ENCOUNTER → 2018-02-23 10:47 | Outpatient (CLI) | payer OTHER, SELFPAY ==
[2018-02-23 12:48] LABS: CRP 3.45 mg/L (0.0-3.0)
[2018-02-24 16:07] LABS: Endomysial Antibody IgA Negative (Negative)
[2018-02-25 16:43] LABS: Immunoglobulin A 101 mg/dL (90-386); t-Transglutaminase IgA <2 U/mL (0-3)
== END ==
LOC: MTLAB 10:49
PROVIDERS: Family Provider Family Medicine Geriatric Medicine; PCP Family Medicine Geriatric Medicine; Referring Provider Internal Medicine Gastroenterology; Visit Provider Internal Medicine Gastroenterology
DX: R10.9 Unspecified abdominal pain (principal); R19.7 Diarrhea, unspecified
CPT/HCPCS: 36415; 82784; 83516; 86140; 86255

== ENCOUNTER → 2018-03-04 11:24 | Outpatient (CLI) | payer OTHER, SELFPAY | LOC: PSN 11:26 | PROVIDERS: Family Provider Family Medicine Geriatric Medicine; PCP Family Medicine Geriatric Medicine; Referring Provider Family Medicine Geriatric Medicine; Visit Provider Family Medicine Geriatric Medicine | DX: R50.9 Fever, unspecified (principal) | CPT/HCPCS: 87633 ==

== ENCOUNTER → 2018-03-11 16:25 | Outpatient (CLI) | payer OTHER, SELFPAY ==
--- NOTE | 2018-03-11 09:36 | COLBX_PTH ---
PATIENT: EVARISTO HAYNES LOC: [facility] U#:[id number] AGE/SX: 60/M ROOM: RE03/11/[address]: Dr. Catracho Mñuiz MD : 1965 BED: DIS: SPEC #: [id number] RECD: 03/11/18 16:02 STATUS: BERNARDO VIKKI #: [id number] MARISA: 03/11/18 09:[address]: Catracho Muñiz DEPT: SURGICAL PATHOLOGY RECD BY: Edgardo Parnell ENTERED: 03/14/18 10:19 SP TYPE: COLON BX OTHR DR: MD Bobby Monroe Chi, Chi, MD [facility] Tissues: A - COLON BIOPSY B - Sigmoid colon biopsy Procedures: Surgery Specimen Level IV HEADER OPERATION: Colonoscopy with biopsies PRE-OP DIAGNOSIS: Diarrhea TISSUE SUBMITTED: A. Right and left colon biopsies, rule out microscopic colitis, B. Sigmoid polyp biopsies MICROSCOPIC DIAGNOSIS A. Right and left colon, biopsy: No significant pathologic change. No evidence of colitis. B. Sigmoid colon polyp, biopsy: Fragments of tubular adenoma. AM:fletcher 03/15/18 MICROSCOPIC DESCRIPTION Slides are reviewed. GROSS DESCRIPTION A - Received in fixative is one container labeled with the patient's name and designated right and left colon biopsy. The specimen consists of multiple irregular fragments of light vásquez soft tissue that in aggregate measure 1.5 x 0.8 x 0.1 cm. The specimen is totally submitted in one cassette. B - Received in fixative is one container labeled with the patient's name and designated sigmoid colon polyp biopsy. The specimen consists of multiple irregular fragments of light vásquez soft tissue that in aggregate measure 0.5 x 0.3 x 0.1 cm. The specimen is totally submitted in one cassette. / AM:fletcher 03/14/18 TC:5 CPT: 78301 x2
--- OUTSIDE RECORDS SUMMARY | 2018-05-16 07:46 | XMS RPT_ITS ---
:1965 Author Organization OHIP Support Name Relationship Address Phone MELISSA HAYNES Unavailable Unavailable + [place] [address] [facility] Unavailable [address] + [place] [address] [facility] Unavailable Unavailable + [place] [address] ARLENEVAISHALILIZ MELISSA Unavailable Unavailable + [place] [address] [facility] Unavailable [address] + [place] [address] [facility] Unavailable Unavailable + [place] [address] MELISSA HAYNES Unavailable Unavailable + [place] [address] [facility] Unavailable [address] + [place] [address] [facility] Unavailable Unavailable + [place] [address] MELISSA HAYNES Unavailable 1 + [place] [address] [employer] Unavailable [address] + [place] [address] [facility] DAVID Unavailable 1 + [place] [address] MELISSA HAYNES Unavailable 1 + [place] [address] [facility] Unavailable [address] + [place] [address] [facility] Unavailable 1 + [place] [address] MELISSA HAYNES Unavailable 1 + [place] [address] [facility] Unavailable . + [place], [place] [id number] [place], [place] [address]DAVID Unavailable 1 + [place] [address] MELISSA HAYNES Unavailable Unavailable + [place] [phone] [facility] Unavailable . + [place] [address] DAVID VALLE Unavailable Unavailable + [place] [address] MELISSA HAYNES Unavailable Unavailable + [place] [phone] [facility] Unavailable . + [place] [address] [facility] Unavailable Unavailable + [place] [address] SHAN Cindy [employer] Unavailable X + X X, x X SHAN Cindy [employer] Unavailable X + X X, x X SHAN Cindy [employer] Unavailable X + X X, x X SHAN F [employer] Unavailable X + X X, x X SHAN F [employer]ONS Unavailable X + X X, x X SHARAD, ISSA Unavailable [address] + [place] [address] SHAN Cindy [employer] Unavailable X + X X, x X SHARAD, ISSA Unavailable [address] + [place] [address] SHAN Cindy [employer] Unavailable X + X X, x X Care Team Providers Name Role Phone Catracho Muñiz Attending Unavailable Catracho Muñiz Referring Unavailable Chidi, Bobby Chi Primary Care Unavailable Chidi, Bobby Chi Attending Unavailable Chidi, Bobby Chi Referring Unavailable Chidi, Bobby Chi Primary Care Unavailable Catracho Muñiz Attending Unavailable Catracho Muñiz Referring Unavailable Chidi, Bobby Chi Primary Care Unavailable Chidi, Bobby Chi Attending Unavailable Chidi, Bobby Chi Attending Unavailable Primay Care Physicia, No Primary Care Unavailable Edi Cummingss Attending Unavailable Kulwant Thurston Attending Unavailable Chidi, [...] Unavailable Chidi, Bobby Chi Primary Care Unavailable FinnAlvin loja Attending Unavailable PROBLEMS PROBLEMS DATE TYPE CONDITION / CODE ATTENDING STATUS SOURCE 09/27/2017 Unknown E03.9 - Chidi, Bobby Chi Active [place] Hypothyroidism, Community unspecified / Hospital E03.9(ICD-10) Repository 09/27/2017 Unknown R10.9 - Chidi, Bobby Chi Active [place] Unspecified Community abdominal pain / Hospital R10.9(ICD-10) Repository 04/19/2017 Unknown E55.9 - Vitamin D Chidi, Bobby Chi Active [place] deficiency, Community unspecified / Hospital E55.9(ICD-10) Repository PROCEDURES PROCEDURES No Procedure Records FoundRESULTS RESULTS COLON BIOPSY (CHOOSE Observed: 03/11/2018 Status: F Source: [place] SITE) 9:36 AM [facility] REPOSITORY Patient: EVARISTO HAYNES : 1965 (53/M) Acct Num: [id number] Phys: Catracho Muñiz Unit Num: [id number] Loc: [facility] Specimen: [id number] Received: 03/11/18 - 160 Spec Type: COLON BX TISSUES 1 TISSUES: A. COLON BIOPSY B. Sigmoid colon biopsy GROSS DESCRIPTION A - Received in fixative is one container labeled with the patient's name and designated right and left colon biopsy. The specimen consists of multiple irregular fragments of light vásquez soft tissue that in aggregate measure 1.5 x 0.8 x 0.1 cm. The specimen is totally submitted in one cassette. B - Received in fixative is one container labeled with the patient's name and designated sigmoid colon polyp biopsy. The specimen consists of multiple irregular fragments of light vásquez soft tissue that in aggregate measure 0.5 x 0.3 x 0.1 cm. The specimen is totally submitted in one cassette. / AM:rg 03/14/18 TC:5 CPT: 68264 x2 HEADER OPERATION: Colonoscopy with biopsies PRE-OP DIAGNOSIS: Diarrhea TISSUE SUBMITTED: A. Right and left colon biopsies, rule out microscopic colitis, B. Sigmoid polyp biopsies MICROSCOPIC DESCRIPTION Slides are reviewed. MICROSCOPIC DIAGNOSIS A. Right and left colon, biopsy: No significant pathologic change. No evidence of colitis. B. Sigmoid colon polyp, biopsy: Fragments of tubular adenoma. AM:fletcher 03/15/18 Signed Felipe Riberaih, DO 03/15/18 <signature on file> Performed By: #### PCOLBX #### [facility] [address] [place], [address] Observed: 03/04/2018 Status: F Source: [place] RESPIRATORY PANEL 11:30 AM [facility] MOLECULAR REPOSITORY RESULTS CALLED TO DR. MENDENHALL 03/04/18 1622 BY [facility] RP PANEL ADENOVIRUS Not Detected HUMAN METAPHNEUMO Not Detected INFLUENZA A Not Detected INFLUENZA A (SUBTYPE H1) Not Detected INFLUENZA A (SUBTYPE H3) Not Detected INFLUENZA B Not Detected PARAINFLUENZA 1 Not Detected PARAINFLUENZA 2 Not Detected PARAINFLUENZA 3 Not Detected PARAINFLUENZA 4 Not Detected RHINOVIRUS Positive for RHINOVIRUS by NAAT technology RSV A Not Detected RSV B Not Detected NAAT METHOD Testing was performed using nucleic acid amplification ORGANISM 1: RHINOVIRUS Performed By: #### M100.638 #### [facility] [address] [place], [place], [address] CRP Collected: 02/23/2018 Status: F Source: [place] 10:56 AM [facility] REPOSITORY TYPE CODE TESTS RESULT OUT OF RANGE REFERENCE UNITS LAB L501.6710 0.0-3.0 mg/L High 3.45 C-REACTIVE PROT Result Comment: C-Reactive Protein (CRP) provides useful information for the diagnosis, therapy and monitoring of inflammatory processes and associated diseases. For the evaluation of Relative Risk for Cardiovascular Disease, a High Sensitivity CRP (HSCRP) should be ordered. Performed By: #### L501.6710 #### [facility] [address] [place], [address] CELIAC DISEASE Collected: 02/23/2018 Status: F Source: [place] PROFILE 10:56 AM [facility] REPOSITORY TYPE CODE TESTS RESULT OUT OF RANGE REFERENCE UNITS LAB L3200.1400 90-386 mg/dL Normal IMMUNO A 101 Result Comment: Performed at: - [facility] [address] [id number] Automated Weaver: Catracho Buck PhD, Phone: [phone] LAB L3702.4388 0-3 U/mL Normal tTG IGA <2 Result Comment: Negative 0 - 3 Weak Positive 4 - 10 Positive >10 Tissue Transglutaminase (tTG) has been identified as the endomysial antigen. Studies have demonstr- ated that endomysial IgA antibodies have over 99% specificity for gluten sensitive enteropathy. LAB L3410.6014 Negative Normal ENDOMYSIAL IGA Negative Performed By: #### L3410.2400 #### [facility] (refer to report for specific site) refer to report for address and phone number CBC W/DIFF, AUTOMATED Collected: 01/24/2018 Status: F Source: [place] 10:07 AM [facility] REPOSITORY TYPE CODE TESTS RESULT OUT OF [...] Lymph 2.71 Performed By: #### L100.0100 #### [facility] [address] [place], [address] VITAMIN D,25 HYDROXY Collected: 01/24/2018 Status: F Source: [place] 10:07 [facility] REPOSITORY TYPE CODE TESTS RESULT OUT OF REFERENCE UNITS RANGE LAB L506.1000 29.95-100.01 ng/mL Low Vitamin D 18.3 25-OH Result Comment: Vitamin D 25(OH) Status Range Deficiency <20 ng/mL (50nmol/L) Insuffciency 20 - 30 ng/mL (50 - 75 nmol/L) Sufficiency 30 - 100 ng/mL (75 - 250 nmol/L) Toxicity >100 ng/mL (>250 nmol/L) Performed By: #### L506.1000 #### [facility] [address] [place], [place], [address] COMPREHENSIVE METABOLIC Collected: 01/24/2018 Status: F [facility] 10:07 [facility] REPOSITORY TYPE CODE TESTS RESULT OUT OF [...] 6 Performed By: #### L500.4050, L501.9520 #### [facility] [address] [place], [place], [address] THYROID STIM HORMONE Collected: 01/24/2018 Status: F Source: [place] (TSH) 10:07 AM [facility] REPOSITORY TYPE CODE TESTS RESULT OUT OF RANGE REFERENCE UNITS LAB L501.9520 0.358-3.74 uIU/mL High TSH 6.31 Performed By: #### L500.4050, L501.9520 #### [facility] [address] [place], [address] EMERGENCY DEPARTMENT Observed: 01/08/2018 Status: F Source: [facility] SUMMARY 3:49 AM [facility] REPOSITORY [facility] Medical Records Department [address] [place] [address] [place] [address] Emergency Department Summary 01/08/18 0346 MR#: [id number] Acct: [id number] Name: EVARISTO HAYNES Rep #: [id number] : 1965 52 From: Alvin Briseno MD PCP: Bobby Mendenhall MD, Chi Status: REG ER - ER Visit [...] abdominal pain This note was generated with [employer] dictation software. It may contain incorrect words, spelling, and punctuation that were not noted in review of the chart prior to signing ED Disposition - Plan for ED Patient: Chief Complaint: Abd Pain Referrals: Bobby Mendenhall Chi, MD [Primary Care Provider] - What to do if you have Problems For any increased pain, shortness of breath, bleeding, nausea or vomiting, chest pain, or any unexpected problems, contact your Primary Care Provider. Call [facility] ([phone]) or report to the closest Emergency Room. Call 911 if necessary. 01/08/18348 <Electronically signed by Alvin Briseno MD> Date Alvin Briseno MD Cosigner Signature (If Indicated): Date __ CC: Bobby Mendenhall MD DISCHARGE INSTRUCTION Observed: 01/08/2018 Status: F Source: [facility] 3:49 AM [facility] REPOSITORY [facility] Medical Records Department [address] [place] [address] Discharge Instruction 01/08/18348 MR#: [id number] Acct: [id number] Name: EVARISTO HAYNES Rep #: [id number] : 1965 52 From: Alvin Briseno MD PCP: Bobby Mendenhall MD, Chi Status: REG ER ED Disposition - Plan for ED Patient: Chief Complaint: Abd Pain Instructions: ED Abdominal Pain Unkn Cause Male Referrals: Bobby Mendenhall Chi, MD [Primary Care Provider] - What to do if you have Problems For any increased pain, shortness of breath, bleeding, nausea or vomiting, chest pain, or any unexpected problems, contact your Primary Care Provider. Call [facility] ([phone]) or report to the closest Emergency Room. Call 911 if necessary. 01/08/18348 <Electronically signed by Alvin Briseno MD> Date Alvin Briseno MD Cosigner Signature (If Indicated): Date CC: Bobby Mendenhall MD ABDOMEN/PELVIS WITH Observed: 01/08/2018 Status: F Source: [facility] CONTRAST 1:06 AM [facility] REPOSITORY [facility] Imaging Services [address] [place] [address] Abdomen/Pelvis WITH Contrast MR#: [id number] Acct: [id number] Name: EVARISTO HAYNES Rep #: [id number] : 1965 M 52 From: Poncho Thomas MD PCP: Chidi ORELLANA,Bobby Varela Status: REG ER Study: Abdomen/Pelvis WITH Contrast Date of Exam: 01/08/18 Exam# [id number] Ordering Dr: Alvin Briseno MD STUDY: CT [...] support , CC: Alvin Briseno MD; Bobby Mendenhall MD Annual Giving Director: Signed BASIC METABOLIC Collected: 01/08/2018 Status: F Source: [place] PROFILE (BMP) 1:00 AM [facility] REPOSITORY TYPE CODE TESTS RESULT OUT OF [...] 6 GAP Performed By: #### L500.2500 #### [facility] [address] [place], [address] CBC W/DIFF, AUTOMATED Collected: 01/08/2018 Status: F Source: [facility] 1:00 AM [facility] REPOSITORY TYPE CODE TESTS RESULT OUT OF [...] PLATELET NOTED Performed By: #### L100.0100 #### [facility] [address] [place], [address] CARDIOLOGY VISIT Observed: 11/29/2017 Status: F Source: [facility] REPORT 12:57 PM [facility] REPOSITORY [facility] [address] [place] [address] OFFICE VISIT Date of Service: 11/29/17 MR#: [id number] Acct: [id number] Name: EVARISTO HAYNES Rep #: [id number] : 1965 Provider: CORBY Carrasco Age/Sex: 52/M Location: [facility] Status: Signed HPI HPI Details: EVARISTO HAYNES, is a 52 M who presents to the office today for a cardiovascular outpatient follow-up. He has a history of non-ST elevated myocardial infarction in February 2017 status post angioplasty and stenting of proximal LAD at [facility]. 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 Assessment AND Plan 1. Atherosclerosis of buckland coronary artery of buckland heart without angina pectoris I25.10 RHG-ZGA-Nsnm LAD w/ 3.0 x 18 mm Resolute and Mid LAD w/ 2.5 x 12 mm Resolute 03/01/2017 Plan - ASIF HaleyC Patient denies any chest pain, arm pain, jaw pain, neck pain, shortness of breath, or fatigue suggestive of angina at this time. We will continue to monitor this. We will not make any medication regimen changes and will continue risk factor modification. 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 Thus, he is no longer on this medication. 2. History of coronary artery stent placement Z95.5 SLA-AKV-Uklt LAD w/ 3.0 x 18 mm Resolute and Mid LAD w/ 2.5 x 12 mm Resolute 03/01/2017 @ [facility] Plan - MERCEDES Haley He will continue current treatment plan as outlined above. 3. Essential (primary) hypertension I10 Plan - MERCEDES Haley Patient's blood pressure is well-controlled today in the office. We will continue to monitor this. We will not make any medication regimen changes. 4. Pure hypercholesterolemia E78.00 Plan - MERCEDES Haley This is managed by primary care physician. He will continue with current statin medication. 5. Cigarette nicotine dependence without complication F17.210 Plan - MERCEDES Haley Patient continues to smoke. He received extensive education regarding the health benefits of smoking cessation. We will continue to support and encourage smoking cessation. Plan Detail Additional Comments - MERCEDES Haley Discussed the above patient with Dr. Thurston, [...] prior to saving. 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) Coding Level of Care Code Off vis,est,level 3 Diagnoses Atherosclerosis of buckland coronary artery of buck[place] heart without angina pectoris I25.10 Coronary Disease-Associated Artery/Lesion type: buck[place] artery History of coronary artery stent placement Z95.5 Essential (primary) hypertension I10 Pure hypercholesterolemia E78.00 Cigarette nicotine dependence without complication F17.210 Nicotine product type: cigarettes Substance use status: uncomplicated Coding Level of Care Code Off vis,est,level 3 Diagnoses Atherosclerosis of [place] coronary artery of buck[place] heart without angina pectoris I25.10 Coronary Disease-Associated Artery/Lesion type: buck[place] artery History of coronary artery stent placement Z95.5 Essential (primary) hypertension I10 Pure hypercholesterolemia E78.00 Cigarette nicotine dependence without complication F17.210 Nicotine product type: cigarettes Substance use status: uncomplicated 11/29/17 0941 <Electronically signed by Melissa LONG> Date Melissa GOLDC 11/29/17 1257<Electronically signed by Kulwant Thurston MD> Cosigner Signature: Date (if applicable) Kulwant Thurston MD CC: Bobby Mendenhall MD CBC W/DIFF, AUTOMATED Collected: 10/20/2017 Status: F Source: [facility] 9:47 AM [facility] REPOSITORY TYPE CODE TESTS RESULT OUT OF [...] Lymph 2.14 Performed By: #### L100.0100 #### [facility] [address] [place], [place], [address] COMPREHENSIVE METABOLIC Collected: 10/20/2017 Status: F Source: [place] 9:47 AM [facility] REPOSITORY TYPE CODE TESTS RESULT OUT OF [...] 6 Performed By: #### L500.4050, L501.9520 #### [facility] [address] [place], [address] THYROID STIM HORMONE Collected: 10/20/2017 Status: F Source: [facility] (TSH) 9:47 AM [facility] REPOSITORY TYPE CODE TESTS RESULT OUT OF RANGE REFERENCE UNITS LAB L501.9520 0.358-3.74 uIU/mL High TSH 4.31 Performed By: #### L500.4050, L501.9520 #### [facility] [address] [place], [address] VITAMIN D,25 HYDROXY Collected: 10/20/2017 Status: F Source: [place] 9:47 AM [facility] REPOSITORY TYPE CODE TESTS RESULT OUT OF REFERENCE UNITS RANGE LAB L506.1000 29.95-100.01 ng/mL Low Vitamin D 18.0 25-OH Result Comment: Vitamin D 25(OH) Status Range Deficiency <20 ng/mL (50nmol/L) Insuffciency 20 - 30 ng/mL (50 - 75 nmol/L) Sufficiency 30 - 100 ng/mL (75 - 250 nmol/L) Toxicity >100 ng/mL (>250 nmol/L) Performed By: #### L506.1000 #### [facility] [address] [place], [address] ABDOMEN/PELVIS WITH Observed: 09/27/2017 Status: F Source: [place] CONTRAST 10:40 AM [facility] REPOSITORY [facility] Imaging Services [address] [place] [address] Abdomen/Pelvis WITH Contrast MR#: [id number] Acct: [id number] Name: EVARISTO HAYNES Rep #: [id number] : 1965 M 52 From: Khurram Owen PCP: Chidi ORELLANA,Bobby Varela Status: REG CLI Study: Abdomen/Pelvis WITH Contrast Date of Exam: 09/27/17 Exam# [id number] Ordering Dr: Bobby Mendenhall MD STUDY: CT ABDOMEN AND PELVIS WITH [...] Tel , Service support , CC: Bobby Mendenhall MD Annual Giving Director: Signed CBC W/DIFF, AUTOMATED Collected: 09/27/2017 Status: F Source: [place] 10:10 AM [facility] REPOSITORY TYPE CODE TESTS RESULT OUT OF [...] Lymph 1.93 Performed By: #### L100.0100 #### [facility] [address] [place], [place], [address] COMPREHENSIVE METABOLIC Collected: 09/27/2017 Status: F Source: [facility] 10:10 AM [facility] REPOSITORY TYPE CODE TESTS RESULT OUT OF [...] 6 Performed By: #### L500.4050, L501.9520 #### [facility] [address] [place], [place], [address] THYROID STIM HORMONE Collected: 09/27/2017 Status: F Source: [place] (TSH) 10:10 AM [facility] REPOSITORY TYPE CODE TESTS RESULT OUT OF RANGE REFERENCE UNITS LAB L501.9520 0.358-3.74 uIU/mL High TSH 7.21 Performed By: #### L500.4050, L501.9520 #### [facility] [address] [place], [place], [address] CBC W/DIFF, AUTOMATED Collected: 07/20/2017 Status: F Source: [place] 11:15 AM [facility] REPOSITORY TYPE CODE TESTS RESULT OUT OF [...] Lymph 1.97 Performed By: #### L100.0100 #### [facility] [place], [address] COMPREHENSIVE METABOLIC Collected: 07/20/2017 Status: F Source: [facility] 11:15 AM [facility] REPOSITORY TYPE CODE TESTS RESULT OUT OF [...] 9 Performed By: #### L500.4050, L501.9520 #### [facility] [address], [address] THYROID STIM HORMONE Collected: 07/20/2017 Status: F Source: [place] (TSH) 11:15 AM [facility] REPOSITORY TYPE CODE TESTS RESULT OUT OF RANGE REFERENCE UNITS LAB L501.9520 0.358-3.74 uIU/mL High TSH 4.95 Performed By: #### L500.4050, L501.9520 #### [facility] [address] [place], [address] VITAMIN D,25 HYDROXY Collected: 07/20/2017 Status: F Source: [place] 11:15 AM [facility] REPOSITORY TYPE CODE TESTS RESULT OUT OF REFERENCE UNITS RANGE LAB L506.1000 29.95-100.01 ng/mL Low Vitamin D 23.8 25-OH Result Comment: Vitamin D 25(OH) Status Range Deficiency <20 ng/mL (50nmol/L) Insuffciency 20 - 30 ng/mL (50 - 75 nmol/L) Sufficiency 30 - 100 ng/mL (75 - 250 nmol/L) Toxicity >100 ng/mL (>250 nmol/L) Performed By: #### L506.1000 #### [facility] [address] [place], [address] THYROID STIM HORMONE Collected: 05/31/2017 Status: F Source: [place] (TSH) 11:52 AM [facility] REPOSITORY TYPE CODE TESTS RESULT OUT OF RANGE REFERENCE UNITS LAB L501.9520 0.358-3.74 uIU/mL Normal TSH 3.20 Performed By: #### L501.9520 #### [facility] [address] [place], [address] CARDIOLOGY VISIT Observed: 05/26/2017 Status: F Source: [facility] REPORT 11:10 AM [facility] REPOSITORY [facility] [address] [place] [address] OFFICE VISIT Date of Service: 05/26/17 MR#: [id number] Acct: [id number] Name: EVARISTO HAYNES Rep #: [id number] : 1965 Provider: Kulwant Thurston MD Age/Sex: 52/M Location: [facility] Status: Signed [facility] Chief Complaint: Initial visit. Details: EVARISTO HAYNES, is a 52 M who presents to the office today for an initial visit. He had presented to [facility] in February of this year with chest discomfort and was noted to have abnormal cardiac troponins consistent with an non- ST elevation myocardial infarction. He was transferred from [facility] to [facility]. 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 [place] [address] OFFICE VISIT Date of Service: 05/26/17 MR#: [id number] Acct: [id number] Name: EVARISTO HAYNES Rep #: [id number] : 1965 Provider: Kulwant Thurston MD Age/Sex: 52/M Location: [facility] Status: Signed HPI HPI Details: EVARISTO HAYNES, [...] mg PO QDAY 05/26/17 [History Confirmed 05/26/17] PFS Medical History Non-ST elevation (NSTEMI) myocardial infarction (Chronic 02/2017) Hypertension (Chronic) Hyperlipidemia (Chronic) Nicotine dependence (Chronic) Obesity (Chronic) Atherosclerosis of coronary artery of buck[place] heart without angina pectoris (Chronic) Anxiety and [...] Cosigner Signature: Date (if applicable) CC: Bobby Mendenhall MD CBC W/DIFF, AUTOMATED Collected: 04/19/2017 Status: F Source: [facility] 3:36 PM [facility] REPOSITORY TYPE CODE TESTS RESULT OUT OF [...] Lymph 2.58 Performed By: #### L100.0100 #### [facility] [place], [address] COMPREHENSIVE METABOLIC Collected: 04/19/2017 Status: F Source: [facility] 3:36 PM [facility] REPOSITORY TYPE CODE TESTS RESULT OUT OF [...] Performed By: #### L500.4050, L501.9520, L501.9910 #### [facility] [address] [place], [address] THYROID STIM HORMONE Collected: 04/19/2017 Status: F Source: [place] (TSH) 3:36 PM [facility] REPOSITORY TYPE CODE TESTS RESULT OUT OF RANGE REFERENCE UNITS LAB L501.9520 0.358-3.74 uIU/mL High TSH 5.22 Performed By: #### L500.4050, L501.9520, L501.9910 #### [facility] [address] [place], [place], [address] PSA,TOTAL - ANNUAL Collected: 04/19/2017 Status: F Source: SARAN SCREEN 3:36 PM [facility] REPOSITORY TYPE CODE TESTS RESULT OUT OF RANGE REFERENCE UNITS LAB L501.9910 0.00-4.00 ng/mL Normal PSA,TOT 1.96 SCREEN Result Comment: This test was performed using the TPSA assay method for the [employer] chemistry system. Values obtained with different assay methods cannot be used interchangably. When changing PSA assays in the course of monitoring a patient, additional sequential testing should be carried out to confirm baseline values. Performed By: #### L500.4050, L501.9520, L501.9910 #### [facility] [address] [place], [place], [address] VITAMIN D,25 HYDROXY Collected: 04/19/2017 Status: F Source: [place] 3:36 PM [facility] REPOSITORY TYPE CODE TESTS RESULT OUT OF REFERENCE UNITS RANGE LAB L506.1000 29.95-100.01 ng/mL Low Vitamin D 18.1 25-OH Result Comment: Vitamin D 25(OH) Status Range Deficiency <20 ng/mL (50nmol/L) Insuffciency 20 - 30 ng/mL (50 - 75 nmol/L) Sufficiency 30 - 100 ng/mL (75 - 250 nmol/L) Toxicity >100 ng/mL (>250 nmol/L) Performed By: #### L506.1000 #### [facility] [address] [place], [place], [address] HEPATITIS C ANTIBODIES Collected: 04/19/2017 Status: F Source: SARAN 3:36 PM [facility] REPOSITORY TYPE CODE TESTS RESULT OUT OF RANGE REFERENCE UNITS LAB L3100.0650 0.0-0.9 s/co ratio Normal HEP C AB <0.1 Result Comment: Negative: < 0.8 Indeterminate: 0.8 - 0.9 Positive: > 0.9 The CDC recommends that a positive HCV antibody result be followed up with a HCV Nucleic Acid Amplification test (349103). Performed at: [facility] [id number] Automated Weaver: Catracho Buck PhD, Phone: [phone] Performed By: #### L3100.0625 #### [facility] (refer to report for specific site) refer to report for address and phone number ALLERGIES ALLERGIES DATE TYPE / CODE NAME / CODE REACTION SEVERITY SOURCE 01/08/2018 Drug Sulfa Other Unknown [facility] Allergy/4160 (Sulfonamide Hospital 61950(SNOMED Antibiotics)/ Repository CT) [id number](RX NORM) 01/02/2014 Drug codeine/F0060 Other Unknown [facility] Allergy/4160 65473(RXNORM) Hospital 84797(SNOMED Repository CT) ENCOUNTERS ENCOUNTERS ADMIT/DISCHARGE ACCOUNT ADMITTING ENCOUNTER LOCATION SOURCE NUMBER CLASS 03/11/2018 [id number] Ambulatory [facility] 9 [facility] ing:LABSPEC Repository 03/04/2018 [id number] Ambulatory Saran Saran 5 [facility] ing:PSN Repository 02/23/2018 [id number] Ambulatory Saran Saran 9 [facility] ing:MTLAB Repository 01/24/2018 [id number] Ambulatory [place]an [facility] 2 [facility] ing:POLAB3 Repository 01/08/2018/ [id number] Emergency [place] [facility] 8 6 [facility] Hospital ing:ED Repository 11/29/2017/ [id number] [facility] 10/20/2017 [id number] Ambulatory Jackson Jackson 6 [facility] Hospital ing:POLAB3 Repository 09/27/2017 [id number] Ambulatory Saran [facility] 2 [facility] Hospital ing:CT Repository 09/27/2017 [id number] Ambulatory Jackson Saran 1 [facility] Hospital ing:LAB.FUTUR Repository E 07/20/2017 [id number] Ambulatory Jackson Saran 7 [facility] Hospital ing:POLAB3 Repository 05/31/2017 [id number] Ambulatory [facility] Jackson 7 [facility] ing:POLAB3 Repository 05/26/2017/ [id number] Ambulatory BMSBuilding:B [facility] 8 0 [facility] Repository 05/25/2017 [id number] Ambulatory BMSBuilding:B Sar[place] 0 [facility] Repository 04/19/2017 [id number] Ambulatory Saran Saran 7 [facility] ing:POLAB3 Repository PAYERS PAYERS ENCOUNTER GUARANTOR PAYER SUBSCRIBER SOURCE 03/11/2018 EVARISTO [id number] CR Insurance:GPATPA LEROYERDOB: [address] Number: [id number] , [place] [address]Rms: [id number] Repository Date:8002-81-13[address] () [place], [place] [address]YU: 03/11/2018 Secondary NOT GIVENUNK Saran Insurance:SELF PAY [facility] Number: Effective Repository Date:2018-03-11 03/04/2018 EVARISTO [id number] CR Insurance:GPATPA BALDNERDOB: [address] Number: [id number] , [place] [address]Dwd: [id number] Repository Date:3088-29-29II [address] () [address]11[address]ENQ[place], [place] [address]OS: 03/04/2018 Secondary NOT GIVENUNK Saran Insurance:SELF PAY [facility] Number: Effective Repository Date:2018-03-04 02/23/2018 EVARISTO Noonan [id number] CR Insurance:GPATPA LEROYERDOB: [address] Number: [id number] [place] [address] , [place] [address]Guo: [id number] Repository Date:9953-75-91PD [address] () [address]OVWJR, [place] [address]BY: 02/23/2018 Secondary NOT GIVENUNK Saran Insurance:SELF PAY [facility] Number: Effective Repository Date:2018-02-23 01/24/2018 EVARISTO Noonan [id number] CR Insurance:GPATPA ARLENEDNERDOB: [address] Number: [id number], [place] [address]Crb: [id number] Repository Date:6169-74-55QT [address] () [place]JK, [place] [address]UI: 01/24/2018 Secondary NOT GIVENUNK Saran Insurance:SELF PAY [facility] Number: Effective Repository Date:2017-12-16 01/08/2018 EVARISTO Sinclairoster [id number] CR Insurance:GPATPA LEROYERDOB: [address] Number: [id number], [place] [address]Ztw: [id number] Repository Date:7040-21-37AG [address] () 352359RFGNSF, [place] [address]HE: 01/08/2018 Secondary NOT GIVENUNK Saran Insurance:SELF PAY [facility] Number: Effective Repository Date:2018-01-08 11/29/2017 EVARISTO Sinclairoster [id number] CR Insurance:GPATPA LEROYERDOB: [address] Number: [id number] [facility] , [place] [address]Nbd: [id number] Repository Date:3467-37-88LB [address] () [place], [place] [address]OD: 11/29/2017 Secondary NOT GIVENUNK Saran Insurance:SELF PAY [facility] Number: Effective Repository Date:2017-11-29 10/20/2017 EVARISTO Agee Jackson [id number] CR Insurance:GPATPA BALDNERDOB: [address] Number: [id number] [facility] , [place] [address]Hwb: [id number] Repository Date:4967-04-52OG [address] () 053879QCIIVN, [place] [address]KZ: 10/20/2017 Secondary NOT GIVENUNK Jackson Insurance:SELF PAY [facility] Number: Effective Repository Date:2017-10-20 09/27/2017 EVARISTO G Primary EVARISTO G Saran [id number] CR Insurance:DEVYN NICOLEB: [address] Number: [id number] [facility] , [place] [address]Fft: [id number] Repository Date:8758-50-52MA [address] () [place]26[address]F, [place] [address]KB: 09/27/2017 Secondary NOT GIVENUNK Jackson Insurance:SELF PAY [facility] Number: Effective Repository Date:2017-09-27 09/27/2017 EVARISTO CALI Primary EVARISTO Jackson CR Insurance:DEVYN NICOLEB: [address] Number: [id number] [facility] , [place] [address]Dzy: [id number] Repository Date:5909-27-48GA [address] () 497[place], [place] [address]GG: 09/27/2017 Secondary NOT GIVENUNK Saran Insurance:SELF PAY [facility] Number: Effective Repository Date:2017-08-04 07/20/2017 EVARISTO CALI Primary EVARISTO Saran CR Insurance:DEVYN NICOLEB: [address] Number: [id number] [facility] , [place] [address]Srt: [id number] Repository Date:0559-48-16AL [address]OX () 066448VFFOUO, [place] [address]XY: 07/20/2017 Secondary NOT GIVENUNK Saran Insurance:SELF PAY [facility] Number: Effective Repository Date:2017-07-20 05/31/2017 EVARISTO CALI Primary EVARISTO Saran CR Insurance:DEVYN NICOLEB: [address] Number: [id number], [place] [address]Ucb: [id number] Repository Date:8704-04-92QW [address] () 963645DDLWJF, [place] [address]MX: 05/31/2017 Secondary NOT GIVENUNK Jackson Insurance:SELF PAY [facility] Number: Effective Repository Date:2017-04-22 05/26/2017 EVARISTO [id number] Primary EVARISTO Jackson CR Insurance:CHENGSERGEYPriscila JACOBSKATHERINEB: [address] Number: [id number], [place] [address]Tkn: [id number] Repository Date:6398-82-67PV [address] () [address]1386KHCGOH, [place] [address]VS: 05/26/2017 Secondary NOT GIVENUNK Jackson Insurance:SELF PAY [facility] Number: Effective Repository Date:2017-05-26 05/25/2017 EVARISTO [id number] Primary EVARISTO Saran CR Insurance:DEVYN NICOLEB: [address] Number: [id number], [place] [address]Bjd: [id number] Repository Date:9902-65-61LD [address] () 956[address]EUWGGG, [place] [address]SX: 05/25/2017 Secondary NOT GIVENUNK Jackson Insurance:SELF PAY [facility] Number: Effective Repository Date:2017-05-25 04/19/2017 EVARISTO Primary EVARISTO Jackson [id number] Insurance:DEVYN JACOBSKATHERINEB: [facility] Number: [id number] [id number] Repository [address]Czi: (704) Date:3328-07-54[phone] ( 467[place]WX[place], [place] [address]IE: 04/19/2017 Secondary NOT GIVENUNK Saran Insurance:SELF PAY [facility] Number: Effective Repository Date:2017-04-19
== END ==
PROVIDERS: Family Provider Family Medicine Geriatric Medicine; PCP Family Medicine Geriatric Medicine; Referring Provider Internal Medicine Gastroenterology; Visit Provider Internal Medicine Gastroenterology
DX: R19.7 Diarrhea, unspecified (principal); K63.5 Polyp of colon
CPT/HCPCS: 88305

== ENCOUNTER → 2018-04-14 11:55 | Outpatient (CLI) | payer OTHER, SELFPAY ==
[2018-04-14 12:17] LABS: Absolute Lymphocyte Count 1.93 X10^3/ul (0.83-4.51); Absolute Neutrophil Count 6.5 X10^3/uL (2.0-7.7); Basophil# 0.05 X10^3/uL; Basophil% 0.5 % (0-1); Eosinophil# 0.49 X10^3/uL; Hematocrit 46.4 % (40-54); Hemoglobin 15.2 g/dl (13.0-16.5); Lymphocyte # 1.93 X10^3/ul (4.0); Lymphocyte % 19.7 % (19-41); Mean Corp Hgb Conc 32.8 g/gl (32-36); Mean Corpuscular Hgb 29.8 pg (27.0-32.0); Mean Platelet Vol. 9.2 fl (6.2-12.0); Monocyte% 8.2 % (0-10); Neutrophil % 66.4 % (47-70); Platelet Count 315 K/mm3 (150-450); RBC Distribution Width CV 14.5 % (11.6-14.6); RBC Distribution Width SD 47.6 fl (35.1-43.9); White Blood Count 9.8 K/mm3 (4.4-11.0)
[2018-04-14 12:23] LABS: POSITIVE COUNT NO; POSITIVE DIFFERENTIAL NO; POSITIVE MORPHOLOGY NO
[2018-04-14 12:33] LABS: D-Dimer Quantitative (DVT/PE) < 0.27 FEU/ug/m (0.27-0.49)
[2018-04-14 13:01] LABS: BNP,B-Type NATRIURETIC PEPTIDE 6.8 pg/mL (0-100)
[2018-04-14 13:02] LABS: AST(SGOT) 15 U/L (15-37); Alanine Aminotransfer ALT/SGPT 31 U/L (16-61); Albumin, Serum 3.6 g/dL (3.2-5.0); Alkaline Phosphatase 83 U/L (45-117); Anion Gap 5 (5-15); BUN 20 mg/dL (7-18); BUN/Creat Ratio 18.9 RATIO (10-20); CPK Total, Creatine Kinase 65 U/L (39-308); Calcium,Total 8.3 mg/dL (8.5-10.1); Chloride 106 mmol/L (98-107); Creatinine, Serum 1.06 mg/dL (0.70-1.30); EST Glomerular Filtration Rate 77 mL/min (>60); Est Glom Filt Rate - Afr Amer 94 mL/min (>60); Globulin 3.5 g/dL (2.2-4.2); Glucose 107 mg/dL (74-106); Potassium 4.7 mmol/L (3.5-5.1); Protein, Total 7.1 g/dL (6.4-8.2); Sodium Level 136 mmol/L (136-145); Thyroid Stim Hormone (TSH) 6.19 uIU/mL (0.358-3.74)
[2018-04-15 11:33] LABS: Myoglobin, Serum 29 ng/mL (28-72)
== END ==
PROVIDERS: Family Provider Family Medicine Geriatric Medicine; PCP Family Medicine Geriatric Medicine; Visit Provider Family Medicine Geriatric Medicine
DX: E03.9 Hypothyroidism, unspecified (principal); R06.02 Shortness of breath; I25.10 Atherosclerotic heart disease of native coronary artery without angina pectoris; R07.9 Chest pain, unspecified
CPT/HCPCS: 36415; 80053; 82550; 83874; 83880; 84443; 84484; 85025; 85379

== ENCOUNTER → 2018-04-29 11:26 | Outpatient (CLI) | payer OTHER, SELFPAY ==
[2018-04-29 11:55] LABS: Absolute Lymphocyte Count 2.25 X10^3/ul (0.83-4.51); Absolute Neutrophil Count 6.5 X10^3/uL (2.0-7.7); Basophil# 0.03 X10^3/uL; Basophil% 0.3 % (0-1); Eosinophil# 0.48 X10^3/uL; Eosinophils% 4.8 % (0-5); Hemoglobin 15.2 g/dl (13.0-16.5); Lymphocyte # 2.25 X10^3/ul (4.0); Lymphocyte % 22.4 % (19-41); Mean Corp Hgb Conc 32.3 g/gl (32-36); Mean Corpuscular Hgb 29.7 pg (27.0-32.0); Monocyte# 0.77 X10^3/uL; Monocyte% 7.7 % (0-10); Neutrophil # 6.48 X10^3/uL (2.7-7.7); Neutrophil % 64.6 % (47-70); Platelet Count 323 K/mm3 (150-450); RBC Distribution Width CV 14.6 % (11.6-14.6); RBC Distribution Width SD 47.9 fl (35.1-43.9); Red Blood Count 5.11 M/mm3 (4.6-6.2)
[2018-04-29 11:59] LABS: POSITIVE COUNT NO; POSITIVE DIFFERENTIAL NO; POSITIVE MORPHOLOGY NO
[2018-04-29 12:25] LABS: Vitamin D,25 Hydroxy 14.6 ng/mL (29.95-100.01)
[2018-04-29 12:30] LABS: ALB/GLOB Ratio 1.1 RATIO (0.9-2.4); AST(SGOT) 15 U/L (15-37); Alanine Aminotransfer ALT/SGPT 29 U/L (16-61); Albumin, Serum 3.7 g/dL (3.2-5.0); Alkaline Phosphatase 95 U/L (45-117); Anion Gap 6 (5-15); BUN 19 mg/dL (7-18); BUN/Creat Ratio 15.7 RATIO (10-20); Calcium,Total 8.3 mg/dL (8.5-10.1); Chloride 104 mmol/L (98-107); Creatinine, Serum 1.21 mg/dL (0.70-1.30); EST Glomerular Filtration Rate 66 mL/min (>60); Est Glom Filt Rate - Afr Amer 80 mL/min (>60); Globulin 3.5 g/dL (2.2-4.2); Glucose 104 mg/dL (74-106); Potassium 4.3 mmol/L (3.5-5.1); Protein, Total 7.2 g/dL (6.4-8.2); Sodium Level 138 mmol/L (136-145)
== END ==
PROVIDERS: Family Provider Family Medicine Geriatric Medicine; PCP Family Medicine Geriatric Medicine; Referring Provider Family Medicine Geriatric Medicine; Visit Provider Family Medicine Geriatric Medicine
DX: I10 Essential (primary) hypertension (principal); E55.9 Vitamin D deficiency, unspecified
CPT/HCPCS: 36415; 80053; 82306; 84443; 85025

== ENCOUNTER 2018-05-29 09:18 | Emergency (ER) | payer OTHER, SELFPAY ==
[2018-05-29 09:19] VITALS: BP 185/119; PULSE 80; RESP 17; TEMP 36.4; O2SAT 96; BMI 40.6
--- NOTE | 2018-05-29 09:20 | EKG12_ITS ---
Test Reason : CP Blood Pressure : / mmHG Vent. Rate : 077 BPM Atrial Rate : 077 BPM P-R Int : 172 ms QRS Dur : 088 ms QT Int : 368 ms P-R-T Axes : 054 062 062 degrees QTc Int : 416 ms Normal sinus rhythm Normal ECG Confirmed by DALE ORELLANA, KEVIN ([id number]), staff editor VALORIE BOO ([id number]) on 05/31/2018 7:59:10 AM Referred By: CARMEL Confirmed By:KEVIN HUNTER MD
--- NOTE | 2018-05-29 09:20 | RAD_ITS ---
STUDY: X-RAY CHEST REASON FOR EXAM: Male, 53 years old. Chest pain. TECHNIQUE: Single portable frontal view of the chest was obtained. COMPARISON: None. FINDINGS: The lungs are clear and expanded. There is no demonstrated pleural abnormality. Normal size heart. Normal mediastinum and ophelia. Normal visualized pulmonary arteries. Normal visualized aortic arch and descending thoracic aorta. Normal visualized thoracic spine. Normal visualized ribs, clavicles, and shoulders. There is no demonstrated abnormality of the visualized soft tissue structures of the upper abdomen. RAD/Chest 1 View (Portable) IMPRESSION: Normal x-ray examination of the chest. Electronically Signed: Maxwell Rockwell, at 9:47 EDT Tel , Service support ,
[2018-05-29 09:24] VITALS: O2SAT 98
--- NOTE | 2018-05-29 09:29 | ED.DCSUM_ITS ---
- ER Visit Summary Date of Service: 05/29/18 Chief Complaint: [] Chest pain since Wednesday History of Present Illness: The patient is a 53 M [] cardiac stent due to MS in 2006 [facility], indicates his been feeling fine but then on Wednesday he began having intermittent intense chest pressures, on Wednesday it lasted for 30-60 minutes and resolved, Wednesday he had pain intermittently all day and then this morning he again had intense pain he took a nitroglycerin the pain resolved and he came in. It is unusual for him to have this type of chest pressure it is similar to his angina, he has hypothyroidism, he has otherwise has no past history, he takes Brilinta and aspirin he has not taken that yet this morning we will provide that dose he said no fever no cough no abdominal pain no numbness weakness or paresthesias normal bowel bladder habits, he is having no pain at this time Physical Examination: [] Vital signs are within normal range General, no distress resting comfortably HEENT is generally unremarkable The neck is supple no adenopathy Cardiovascular, regular rate and rhythm Lungs, clear bilateral Abdomen, soft nontender Extremities, no clubbing cyanosis or edema Neurologic, awake alert answering questions appropriately moving all 4 extremities Test Results: [] Emergency Department Course and Treatment: [] EKG shows a sinus rhythm nothing acute Patient's chest x-ray screening labs are all generally unremarkable please see those reports, The patient remains pain-free studies are all unremarkable we discussed inpatient versus outpatient management he declined admission he understands long differential but wants to go home to 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 It may contain incorrect words, spelling, and punctuation that were not noted in review of the chart prior to signing ED Disposition - Plan for ED Patient: Referrals: Bobby Murillo Chi, MD [Primary Care Provider] -
[2018-05-29 09:30] LABS: Absolute Lymphocyte Count 2.31 X10^3/ul (0.83-4.51); Basophil# 0.05 X10^3/uL; Basophil% 0.6 % (0-1); Eosinophil# 0.58 X10^3/uL; Eosinophils% 6.7 % (0-5); Hematocrit 46.6 % (40-54); Hemoglobin 15.1 g/dl (13.0-16.5); Lymphocyte # 2.31 X10^3/ul (4.0); Lymphocyte % 26.6 % (19-41); Mean Corp Hgb Conc 32.4 g/gl (32-36); Mean Corpuscular Hgb 29.4 pg (27.0-32.0); Mean Corpuscular Volume 90.7 fL (80-94); Mean Platelet Vol. 9.1 fl (6.2-12.0); Monocyte# 0.78 X10^3/uL; Neutrophil # 4.95 X10^3/uL (2.7-7.7); POSITIVE COUNT NO; POSITIVE DIFFERENTIAL NO; POSITIVE MORPHOLOGY NO; Platelet Count 309 K/mm3 (150-450); RBC Distribution Width CV 14.4 % (11.6-14.6); Red Blood Count 5.14 M/mm3 (4.6-6.2); White Blood Count 8.7 K/mm3 (4.4-11.0)
--- NOTE | 2018-05-29 09:31 | ED.RN ---
NO SEPTIC WORKUP,, CARDIAC PER DR PORTILLO
[2018-05-29 09:46] LABS: Anion Gap 2 (5-15); BUN 18 mg/dL (7-18); BUN/Creat Ratio 14.6 RATIO (10-20); Calcium,Total 8.6 mg/dL (8.5-10.1); Chloride 106 mmol/L (98-107); Creatinine, Serum 1.23 mg/dL (0.70-1.30); EST Glomerular Filtration Rate 65 mL/min (>60); Est Glom Filt Rate - Afr Amer 79 mL/min (>60); Estimated Creatinine Clearance 66.42 ml/min; Glucose 102 mg/dL (74-106); Potassium 4.3 mmol/L (3.5-5.1); Sodium Level 138 mmol/L (136-145)
[2018-05-29 10:31] VITALS: BP 161/116; PULSE 79; RESP 16; O2SAT 99
[2018-05-29] MEDS: TICAGRELOR 90 MG TABLET PO (10:34)
[2018-05-29] MEDS: Aspirin 81 MG TAB.CHEW PO (10:34)
[2018-05-29 11:14] LABS: BNP,B-Type NATRIURETIC PEPTIDE 17.9 pg/mL (0-100)
[2018-05-29 11:16] VITALS: BP 133/99; PULSE 65; RESP 14; O2SAT 100
--- NOTE | 2018-05-29 12:01 | ED.DEP ---
ED Disposition - Plan for ED Patient: Instructions: ED Chest Pain Atypical Unkn Cause Referrals: Bobby Murillo Chi, MD [Primary Care Provider] -
[2018-05-29 12:16] VITALS: BP 151/94; PULSE 87; RESP 18; O2SAT 97
== END 2018-05-29 12:18 | disposition home or self-care (01) ==
LOC: ED 09:35
PROVIDERS: Emergency Provider Emergency Medicine; Family Provider Family Medicine Geriatric Medicine; PCP Family Medicine Geriatric Medicine
DX: R07.89 Other chest pain (principal); I25.2 Old myocardial infarction; Z95.5 Presence of coronary angioplasty implant and graft; Z79.82 Long term (current) use of aspirin; Z79.899 Other long term (current) drug therapy; Z72.0 Tobacco use
CPT/HCPCS: 71045; 80048; 83880; 84484; 85025; 93005; 99284; A4216

== ENCOUNTER → 2018-06-27 05:53 | Outpatient (CLI) | payer OTHER, SELFPAY ==
[2018-06-07 09:39] VITALS: BMI 41.5
--- NOTE | 2018-06-27 16:38 | STRESSREP_ITS ---
Stress Test Report Exercise myocardial perfusion stress test. 53-year-old man with a history of chest pain. Previous angioplasty and stenting of the left anterior descending artery. Stress protocol: Resting EKG demonstrates normal sinus rhythm with a rate of 76 bpm resting blood pressures 120/80 mmHg. The patient exercised according to regular Nicho pro tocol for a total duration of 8 minutes. Patient completed 2 minutes into stage III of the Nicho protocol the maximum heart rate attained was 148 bpm which was 89% of maximum predicted heart rate the maximum workload was 9.9 metabolic equivalents. Patient maintained sinus rhythm throughout the recording. At rest there were no ST or T wave changes noted suggest ischemia at peak exercise upsloping ST changes were noted less than 1 mm with a number the criteria for ischemia no clinical angina was noted the test was terminated due to shortness of breath. The resting blood pressure was 120/80 mmHg peak blood pressure was 200/84 mmHg rate pressure product was 26,000. Myocardial perfusion protocol. 14.2 mCi of technetium 99m sestamibi was injected at rest. The patient exercised according to regular Nicho protocol for 8 minutes attaining 89% maximum predicted heart rate at peak exercise 44.8 mCi of technetium 99m sestamibi was injected stress images were obtained stress and rest images were reconstructed in comparing the short axis vertical and horizontal long axis. Gated images were also obtained Perfusion SPECT analysis: Review of the stress images demonstrate normal uptake of tracer noted in all the rest of the myocardium. The resting images similarly demonstrated normal uptake of tracer noted in all areas of the myocardium. No areas of reversibility are noted suggest ischemia no previous infarct is noted. Gated SPECT analysis: The gated ejection fraction is 71%. Conclusion: Normal exercise myocardial perfusion stress test at a high workload. No clinical angina noted. No ischemia present.
== END ==
PROVIDERS: Family Provider Family Medicine Geriatric Medicine; PCP Family Medicine Geriatric Medicine; Referring Provider Internal Medicine Cardiovascular Disease; Visit Provider Internal Medicine Cardiovascular Disease
DX: R07.9 Chest pain, unspecified (principal)
CPT/HCPCS: 78452; 93017; A9500; A4216

== ENCOUNTER 2018-08-06 17:32 | Inpatient (IN) | payer SELFPAY ==
[2018-06-07 09:39] VITALS: BMI 41.5
[2018-08-06] VITALS (13 sets, daily range): BP systolic 140–169; BP diastolic 82–102; PULSE 69–100; RESP 16–18; TEMP 36.6–36.9; O2SAT 92–98; BMI 39.5; BMI 39.3
--- NOTE | 2018-08-06 17:49 | EKG12_ITS ---
Test Reason : CP ADMIT Blood Pressure : / mmHG Vent. Rate : 092 BPM Atrial Rate : 092 BPM P-R Int : 154 ms QRS Dur : 082 ms QT Int : 352 ms P-R-T Axes : 054 080 061 degrees QTc Int : 435 ms Normal sinus rhythm with sinus arrhythmia Normal ECG Confirmed by JUDITH ORELLANA, ENRICO ([id number]), editor managing director DARCIE PEPPER ([id number]) on 08/10/2018 12:36:52 PM Referred By: PATY Confirmed By:ENRICO WONG MD
--- NOTE | 2018-08-06 17:49 | RAD_ITS ---
STUDY: X-RAY CHEST REASON FOR EXAM: Male, 53 years old. Chest pain TECHNIQUE: AP COMPARISON: May 29, 2018 FINDINGS: The lungs are clear and expanded. There is no demonstrated pleural abnormality. Normal size heart. Normal mediastinum and ophelia. Normal visualized pulmonary arteries. There is atherosclerotic tortuosity of the aortic arch and descending thoracic aorta. Normal visualized thoracic spine. Normal visualized ribs, clavicles, and shoulders. There is no demonstrated abnormality of the visualized soft tissue structures of the upper abdomen. RAD/Chest 1 View (Portable) IMPRESSION: Stable, nonacute portable x-ray examination of the chest. Electronically Signed: Dieudonne Talbot MD at 18:33 EDT , Service support ,
[2018-08-06] MEDS: Aspirin 81 MG TAB.CHEW 324 MG PO (17:57)
--- NOTE | 2018-08-06 18:05 | ED.VISSUMM ---
- ER Visit Summary Date of Service: 08/06/18 Chief Complaint: Chest pain History of Present Illness: The patient is a 53 M history of CAD, prior NE in 2017 with 2 cardiac stents. Had a recent nuclear stress test to be states was unremarkable in June. Today was at home at rest nauseated and then got anterior chest pain. Denies dyspnea. No diaphoresis. States he did feel like his prior NE. At worst the pain was 8 out of 10. Currently it is intermittent. Patient still smokes 1 pack of cigarettes per day. Physical Examination: Middle-aged male vital signs stable. Pulse ox 97% 2 L no hypoxia. No acute distress. HEENT exam unremarkable. Neck nontender no lymphadenopathy. Lungs clear to auscultation. Chest nontender. Abdomen soft nontender. Heart regular rate and rhythm no murmur rate about 90. Patient moving all 4 extremities. Calves are nontender without edema or cords. Equal symmetrical radial pulses. Normal contract negotiator strength. Normal dorsi plantar flexion. Neurologically awake alert with no focal motor deficits. Test Results: CBC normal white count 10. Hemoglobin 14. Chemistries unremarkable creatinine 1.2 gap of 5. Troponin normal chest x-ray portable one view read both by myself and radiologist shows normal cardiac silhouette and mediastinum. No acute abnormality. EKG sinus rhythm rate of 91 with no acute signs of NE or ischemia and no change from May. Emergency Department Course and Treatment: Patient treated with 4 baby aspirin. Nitropaste. Undergo cardiac work-up. Treatment Plan: Repeat exam at 1849 PM patient is doing well. States his pain is much better almost resolved with the Nitropaste. In light of his cardiac history I do think he needs warrants admission for repeat serial troponins and further evaluation. Hospitalist is on page. Disposition: Admission Impression: Chest pain of uncertain etiology History of CAD, 2 cardiac stents, prior NE Tobacco abuse This note was generated with [employer] dictation software. It may contain incorrect words, spelling, and punctuation that were not noted in review of the chart prior to signing ED Disposition - Plan for ED Patient: Referrals: Bobby Murillo Chi, MD [Primary Care Provider] -
[2018-08-06 18:07] LABS: Absolute Lymphocyte Count 2.42 X10^3/ul (0.83-4.51); Absolute Neutrophil Count 6.2 X10^3/uL (2.0-7.7); Basophil# 0.04 X10^3/uL; Basophil% 0.4 % (0-1); Eosinophil# 0.61 X10^3/uL; Hematocrit 43.1 % (40-54); Hemoglobin 14.8 g/dl (13.0-16.5); Lymphocyte # 2.42 X10^3/ul (4.0); Lymphocyte % 23.9 % (19-41); Mean Corp Hgb Conc 34.3 g/gl (32-36); Mean Corpuscular Hgb 30.5 pg (27.0-32.0); Mean Corpuscular Volume 88.7 fL (80-94); Mean Platelet Vol. 9.1 fl (6.2-12.0); Monocyte# 0.79 X10^3/uL; Monocyte% 7.8 % (0-10); Neutrophil # 6.23 X10^3/uL (2.7-7.7); Neutrophil % 61.7 % (47-70); Platelet Count 376 K/mm3 (150-450); RBC Distribution Width CV 14.2 % (11.6-14.6); RBC Distribution Width SD 45.3 fl (35.1-43.9); Red Blood Count 4.86 M/mm3 (4.6-6.2); White Blood Count 10.1 K/mm3 (4.4-11.0)
[2018-08-06 18:15] LABS: POSITIVE COUNT NO; POSITIVE DIFFERENTIAL NO; POSITIVE MORPHOLOGY NO
[2018-08-06] MEDS: Nitroglycerin Oint 1 INCH PACKET TRANSDERM. (18:18)
[2018-08-06 18:30] LABS: Anion Gap 5 (5-15); BUN 20 mg/dL (7-18); BUN/Creat Ratio 16.1 RATIO (10-20); Calcium,Total 8.6 mg/dL (8.5-10.1); Chloride 105 mmol/L (98-107); Creatinine, Serum 1.24 mg/dL (0.70-1.30); EST Glomerular Filtration Rate 65 mL/min (>60); Est Glom Filt Rate - Afr Amer 78 mL/min (>60); Estimated Creatinine Clearance 65.89 ml/min; Glucose 118 mg/dL (74-106); Potassium 3.7 mmol/L (3.5-5.1); Sodium Level 137 mmol/L (136-145)
--- NOTE | 2018-08-06 18:56 | HP.PCM_ITS ---
Problem List (1) Essential (primary) hypertension Status: Chronic (2) History of coronary artery stent placement Status: Chronic Comment: MRS-ARP-Cttl LAD w/ 3.0 x 18 mm Resolute and Mid LAD w/ 2.5 x 12 mm Resolute 03/01/2017 @ [facility]/ (3) Obesity Status: Chronic Qualifiers: Obesity type: unspecified obesity type Body mass index: unspecified BMI (4) Chest pain Status: Acute Qualifiers: Chest pain type: unspecified Qualified Code(s): R07.9 - Chest pain, unspecified (5) Nicotine dependence Status: Chronic Qualifiers: Nicotine product type: cigarettes Substance use status: uncomplicated Qualified Code(s): F17.210 - Nicotine dependence, cigarettes, uncomplicated History of Present Illness Date of Admission: 08/06/18 Chief Complaint: Chest pain - 1 day The patient is a 53 year old M with past medical history of CAD status post 2 stents, history of hypertension, hypothyroidism, nicotine dependence who comes in with complaints of chest pain that happened at 5 PM on the day of admission. Patient was in his usual state of health until 5 PM, whilst he was [place] the [place], he started to order food and sit down with them to eat dinner, when he had severe substernal stabbing chest pain, radiated to the back and the shoulder. This chest pain felt like his previous ID. Was associated with nausea but no diaphoresis or shortness of breath or palpitations or dizziness. He had a recent stress test on 06/27/18 which was negative. His chest pain went away when the Nitropatch was placed on him. His vitals in the ED showed he of 97.8F, heart rate 100, blood pressure 169/102, respiratory rate 16, SPO2 96% on room air Admitting blood work showed unremarkable CBC D and BMP. His creatinine is 1.24 very close to his baseline. His chest x-ray was unremarkable. Past Medical History Past Medical History (Chronic Problems): Chronic Problems (Last Reviewed 07/06/18 @ 08:17 by Jaelyn Leonard) Pure hypercholesterolemia (Chronic) Essential (primary) hypertension (Chronic) Non-ST elevation (NSTEMI) myocardial infarction (Chronic ~02/2017) History of coronary artery stent placement (Chronic ~03/01/17) [id number] LAD w/ 3.0 x 18 mm Resolute and Mid LAD w/ 2.5 x 12 mm Resolute 03/01/2017 @ [facility]/ Nicotine dependence (Chronic) Obesity (Chronic) Atherosclerosis of coronary artery of [place] heart without angina pectoris (Chronic) [id number]-Omns LAD w/ 3.0 x 18 mm Resolute and Mid LAD w/ 2.5 x 12 mm Resolute 03/01/2017 Medical History: Medical History (Last Reviewed 07/06/18 @ 08:17 by Jaelyn Leonard) Pure hypercholesterolemia (Chronic) E78.00 Essential (primary) hypertension (Chronic) I10 Non-ST elevation (NSTEMI) myocardial infarction (Chronic) Onset Date: ~02/2017 I21.4 Nicotine dependence (Chronic) F17.200 Obesity (Chronic) E66.9 Atherosclerosis of coronary artery of [place] heart without angina pectoris (Chronic) I25.10 QSW-RVX-Vuyp LAD w/ 3.0 x 18 mm Resolute and Mid LAD w/ 2.5 x 12 mm Resolute 03/01/2017 Anxiety and depression F41.9, F32.9 Diverticulitis K57.92 Hypothyroidism E03.9 Migraine G43.909 Allergies Sulfa (Sulfonamide Antibiotics) Allergy (Verified 08/06/18 17:35) Other Home Medications: Ambulatory Orders Medication Instructions Recorded aspirin 81 mg tablet,delayed 81 mg PO DAILY 05/19/17 release atorvastatin 40 mg tablet 40 mg PO QHS tab 05/19/17 bupropion HCl SR 150 mg tablet,12 150 mg PO BID 05/19/17 hr sustained-release duloxetine 60 mg capsule,delayed 60 mg PO QDAY 05/19/17 release metoprolol tartrate 25 mg tablet 25 mg PO BID 05/19/17 Levothyroxine Sodium [Synthroid] 137 mcg PO DAILY 05/29/18 clopidogrel 75 mg tablet 75 mg PO DAILY #90 tab 06/07/18 lisinopril 10 mg tablet 10 mg PO DAILY #90 tab 06/07/18 Surgical History: Surgical History (Last Reviewed 07/06/18 @ 08:17 by Jaelyn Leonard) History of coronary artery stent placement (Chronic) Onset Date: ~03/01/17 Z95.5 ZEC-KHR-Hkgx LAD w/ 3.0 x 18 mm Resolute and Mid LAD w/ 2.5 x 12 mm Resolute 03/01/2017 @ [facility]/ History of appendectomy Z90.49 History of colectomy Z90.49 History of tonsillectomy Z90.89 History of uvulopalatopharyngoplasty Z98.890 Removal uvula Status post correction of deviated nasal septum Z98.890 Surgical History: appendectomy, colectomy, tonsillectomy, - - CAD s/p stents, s/p uvulopalatopharyngoplasty Psychiatric History: Depression Lives: Alone Smoking Status: Current every day smoker Tobacco Use: Cigarettes Alcohol: None Drugs: None - *Family History Maternal Family History: Family History (Last Reviewed 07/06/18 @ 08:17 by Jaelyn Leonard) Father CAD (coronary artery disease) Kidney disease Mother CHF (congestive heart failure) Aortic valve replaced Brother Atrial fibrillation History Items: Heart Disease, - - Hypothyroidism Paternal Family History: Family History (Last Reviewed 07/06/18 @ 08:17 by Jaelyn Leonard) Father CAD (coronary artery disease) Kidney disease Mother CHF (congestive heart failure) Aortic valve replaced Brother Atrial fibrillation History Items: Heart Disease, - - Hypothyroidism Review of Systems Constitutional: Denies: Anorexia, Chills, Fever, Weight Change Eyes: Denies: Blurred vision, Cataracts, Conjunctivae Inflammation HEENT: Denies: Difficulty Swallowing, Head Aches, Hearing Changes, Sinus Congestion, Sinus Drainage Cardiovascular: Reports: Chest Pain. Denies: Heaviness, Light Headedness, Orthopnea, Palpitations, Paroxysmal Noc. Dyspnea Respiratory: Denies: Cough, Hemoptysis, Shortness of breath at rest, Shortness of breath upon exertion, Sputum production Gastrointestinal: Denies: Abdominal Pain, Hematemesis, Hematochezia, Nausea, Vomiting Genitourinary: Denies: Dysuria, Incontinence Musculoskeletal: Denies: Joint Pain, Joint stiffness, Joint swelling, Joint Tenderness Skin: Denies: Rash, Wounds Neurological: Denies: Numbness, Tingling, Focal weakness Psychiatric: Denies: Anxiety, Depression, Homicidal Ideations, Suicidal Ideations Hematologic/ Lymphatic: Denies: Easy Bruising, Easy Bleeding VTE Information - Inpt Only VTE Present on Admission: No VTE Pharm Prophylaxis ordered?: Yes Patient Problems: Active and Suspected Problems (Last Reviewed 07/06/18 @ 08:17 by Jaelyn Leonard) Chest pain (Acute) - Physical Exam General: Alert, Oriented x3, Cooperative, No apparent distress, - - comfortable, well hydrated, obese HEENT: Atraumatic, PERRLA, EOMI, Normocephalic Oral: Moist Mucosa Neck: Supple Lungs: Clear to auscultation, Normal air movement Cardiovascular: Regular rate, Regular Rhythm, Normal S1, Normal S2, No murmurs Abdomen: Bowel Sounds Present, Soft, Non Tender, Non-Distended Extremities: No edema, Capillary Refill Less than 3 Seconds Skin: No rashes, No breakdown Musculoskeletal: No Tenderness to Palpation of Joints or Extremities Lymphatic: No Cervical, Supraclavicular, or Inguinal Adenopathy Neurological: Cranial nerves II-XII grossly intact Psych/Mental Status: Normal Affect, Appropriate Vital Signs Temp Pulse Resp BP Pulse Ox 97.8 F 85 16 169/95 H 97 08/06/18 17:33 08/06/18 18:18 08/06/18 17:33 08/06/18 18:18 08/06/18 17:55 Oxygen Flow Rate (L/min) 3 Oxygen Delivery Method Nasal Cannula Weight: 117.934 kg Body Mass Index (BMI) 39.5 Laboratory Tests Past 24 Hrs 08/06/18 08/06/18 08/06/18 17:47 17:47 17:47 WBC 10.1 RBC 4.86 Hgb 14.8 Hct 43.1 MCV 88.7 MCH 30.5 MCHC 34.3 RDW 14.2 RDW Differential 45.3 H Plt Count 376 MPV 9.1 Immature Gran % (Auto) 0.200 Neut % (Auto) 61.7 Lymph % (Auto) 23.9 Barron % (Auto) 7.8 Eos % (Auto) 6.0 H Baso % (Auto) 0.4 Absolute Neuts (auto) 6.2 Absolute Lymphs (auto) 2.42 Total Counted Not Reportable Sodium 137 Cancelled Potassium 3.7 Cancelled Chloride 105 Cancelled Carbon Dioxide 27.0 Cancelled Anion Gap 5 Cancelled BUN 20 H Cancelled Creatinine 1.24 Cancelled Estim Creat Clear Calc 65.89 Cancelled Est GFR (MDRD) Af Amer 78 Cancelled Est GFR (MDRD) Non-Af 65 Cancelled BUN/Creatinine Ratio 16.1 Cancelled Glucose 118 H Cancelled Calcium 8.6 Cancelled Troponin I < 0.015 Cancelled Assessment/Plan All Active Problems (Last Reviewed 07/06/18 @ 08:17 by Jaelyn Leonard) Chest pain (Acute) Segmental dysfunction of thoracic region (Acute) Segmental and somatic dysfunction of lumbar region (Acute) Segmental and somatic dysfunction of cervical region (Acute) 53 year old M with past medical history of CAD status post 2 stents, history of hypertension, hypothyroidism, nicotine dependence who comes in with complaints of chest pain that happened at 5 PM on the day of admission, relieved with nitro paste. 1. Chest pain, typical, the patient with known history of stents to proximal and mid LAD, who continues to smoke. Recent stress test was negative in June 2018. Admitting EKG in the ED showed no acute ST-T changes. Chest x-ray is unremarkable. Stable vitals. Plan: Admit to PCU, antibiotics, trend troponins, cardiology consult, continue on aspirin, plavix, statin, beta-mary jo 2. Nicotine dependence, advised to quit, refused replacement 3. Hypothyroidism, on levothyroxine 4. Depression, on bupropion 5. Morbid obesity, BMI 39.5, diet and exercise is recommended 6. DVT PPx- Heparin SC Code Visit OBSV E&M: 28489 Initial observation care L3
[2018-08-06] MEDS: 0.9% Normal Saline 1,000 ML 75 ML IV (20:36)
[2018-08-06] MEDS: Heparin Injection (Vial) 5,000 UNIT/ML VIAL 5000 UNIT SC (22:25)
[2018-08-06] MEDS: buPROPion (SR) 150 MG Tablet.SA PO (22:25)
[2018-08-06] MEDS: Atorvastatin Calcium 40 MG Tablet PO (22:25)
[2018-08-06] MEDS: Metoprolol Tartrate 25 MG Tablet PO (22:25)
[2018-08-06] MEDS: 0.9% NaCl Peripheral Flush Adult/Peds IV (22:26)
--- NOTE | 2018-08-06 22:41 | EKG12_ITS ---
Test Reason : CP Blood Pressure : / mmHG Vent. Rate : 091 BPM Atrial Rate : 091 BPM P-R Int : 152 ms QRS Dur : 080 ms QT Int : 362 ms P-R-T Axes : 052 080 062 degrees QTc Int : 445 ms Normal sinus rhythm Normal ECG Confirmed by KEVIN HUNTER MD ([id number]), image editor VALORIE BOO ([id number]) on 08/09/2018 9:33:24 AM Referred By: MIRNA
[2018-08-07] VITALS (14 sets, daily range): BP systolic 97–126; BP diastolic 53–86; PULSE 57–75; RESP 16–19; TEMP 36.4–37; O2SAT 91–95
[2018-08-07] MEDS: Levothyroxine 137 MCG Tablet PO (05:52)
[2018-08-07] MEDS: Heparin Injection (Vial) 5,000 UNIT/ML VIAL 5000 UNIT SC ×3 (05:52→22:03)
[2018-08-07 07:23] LABS: Cholesterol 175 mg/dL (200); High Density Lipoprotein 32 mg/dL; Triglycerides 151 mg/dL; Very Low Density Lipoprotein 30 mg/dL (5-40)
[2018-08-07] MEDS: Acetaminophen 325 MG Tablet 650 MG PO ×2 (08:51→17:29)
[2018-08-07] MEDS: 0.9% Normal Saline 1,000 ML 75 ML IV ×2 (08:51→22:00)
[2018-08-07] MEDS: DULoxetine Hcl 60 MG Capsule PO (08:52)
[2018-08-07] MEDS: Aspirin E.C. 81 MG Tablet PO (08:52)
[2018-08-07] MEDS: buPROPion (SR) 150 MG Tablet.SA PO ×2 (08:52→22:03)
[2018-08-07] MEDS: Metoprolol Tartrate 25 MG Tablet PO ×2 (08:53→22:03)
[2018-08-07] MEDS: Clopidogrel Bisulfate 75 MG Tablet PO (08:53)
[2018-08-07] MEDS: Lisinopril 10 MG Tablet PO (08:53)
--- NOTE | 2018-08-07 13:27 | PN_ITS ---
Progress Note The patient was seen independently and in conjunction with CARYN Anthony. He is a 53-year-old male who presented to the emergency department at [facility] on 08/06/2018 complaining of sharp, stabbing substernal and left chest pain lasting just a few seconds. His past medical history is significant for tobacco dependence, obesity, hypertension, dyslipidemia, coronary artery disease with history of PCI to the proximal LAD and mid LAD at [facility], hypothyroidism, depression and diverticulosis. In February 2017. He continues to smoke 1/2 to 1 pack per day. Has tried the Nicotine patch which has not worked for him. Refuses to try Chantix because he is already depressed and he heard that Chantix can cause depression. He smokes because he likes to and he says he was told that the CAD won't get worse since he had stents. He follows with Dr. Thurston and he had a stress test last month for the same kind of stabbing CP. He exercised for a total of 8 minutes on a regular Nicho protocol and achieved a maximum heart rate of 148 bpm which was 89% of his age-predicted maximum. The perfusion study showed no evidence of myocardial ischemia and his gated ejection fraction was 71%. An echocardiogram and February 2017 showed a 60 to 65% ejection fraction with a slightly elevated right ventricular systolic pressure at 31. There was lipomatous hypertrophy of the atrial septum. Has never had any psychotherapy for depression and he is on Cymbalta and Wellbutrin. Tells me he has been depressed for at least 20 years. Was tested for sleep apnea 20 years ago and it was negative. Lying in bed and appears to be in no distress Neck-supple, no JVD Lungs-diminished but clear to auscultation Heart-somewhat distant likely secondary to body habitus, RRR, no MM, no gallop and no rub No peripheral edema, no calf tenderness Cranial nerves II through XII are grossly intact Impressions 1. Atypical chest pain with recent negative nuclear stress test - achieved 89% of the age predicted max HR 2. CAD with hx of 2 stents to the LAD at another hospital in February 2017 after a NSTEMI 3. HTN 4. dyslipidemia 5. ongoing tobacco dependence and does not want to stop because he likes to smoke 6. Hypothyroidism 7. Hypertension 8. Chronic depression 9. History of diverticulosis Troponin negative x2. LDL is not adequately controlled at 113 and the atorvastatin has been increased to 80 mg daily Blood pressure is adequately controlled. Sx are very atypical for angina and the CP is sharp and lasts only a few secs. Same sx in May and a stress in June was negative. Cardiology has been consulted and we await their recommendations Smoking cessation and weight reduction has been recommended....he is resistant to both D/W Stone and orders have been written. Code Visit OBSV E&M: 49712 Subsequent observation care L2
--- NOTE | 2018-08-07 16:52 | PCM.CONS.C ---
Problem List (1) Chest pain Status: Acute Qualifiers: Chest pain type: unspecified Qualified Code(s): R07.9 - Chest pain, unspecified Reason for Consult Date of Consultation: 08/07/18 History of Present Illness: [The patient is a 53 year old M with past medical history of CAD status post 2 stents, history of hypertension, hypothyroidism, nicotine dependence who comes in with complaints of chest pain that happened at 5 PM on the day of admission. Patient was in his usual state of health until 5 PM, whilst he was [place] his [place] in [place], he started to order food and sit down with them to eat dinner, when he had severe substernal stabbing chest pain, radiated to the back and the shoulder. This chest pain felt like his previous NE. Was associated with nausea but no diaphoresis or shortness of breath or palpitations or dizziness. He had a recent stress test on 06/27/18 which was negative. His chest pain went away when the Nitropatch was placed on him. Systems reviewed. All else is negative except that in the HPI.] Past Medical History Allergies/Adverse Reactions: Allergies Sulfa (Sulfonamide Antibiotics) Allergy (Verified 08/06/18 17:35) Other Home Medications: Ambulatory Orders Medication Instructions Recorded aspirin 81 mg tablet,delayed 81 mg PO DAILY 05/19/17 release atorvastatin 40 mg tablet 40 mg PO QHS tab 05/19/17 bupropion HCl SR 150 mg tablet,12 150 mg PO BID 05/19/17 hr sustained-release duloxetine 60 mg capsule,delayed 60 mg PO QDAY 05/19/17 release metoprolol tartrate 25 mg tablet 25 mg PO BID 05/19/17 Levothyroxine Sodium [Synthroid] 137 mcg PO DAILY 05/29/18 clopidogrel 75 mg tablet 75 mg PO DAILY #90 tab 06/07/18 lisinopril 10 mg tablet 10 mg PO DAILY #90 tab 06/07/18 Past Medical History (Chronic Problems): Chronic Problems (Last Reviewed 07/06/18 @ 08:17 by Jaelyn Leonard) Pure hypercholesterolemia (Chronic) Essential (primary) hypertension (Chronic) Non-ST elevation (NSTEMI) myocardial infarction (Chronic ~02/2017) History of coronary artery stent placement (Chronic ~03/01/17) [id number]-Pzgs LAD w/ 3.0 x 18 mm Resolute and Mid LAD w/ 2.5 x 12 mm Resolute 03/01/2017 @ [facility]/ Nicotine dependence (Chronic) Obesity (Chronic) Atherosclerosis of coronary artery of [place] heart without angina pectoris (Chronic) UTL-DET-Elaj LAD w/ 3.0 x 18 mm Resolute and Mid LAD w/ 2.5 x 12 mm Resolute 03/01/2017 Surgical History: appendectomy, colectomy, tonsillectomy, - - CAD s/p stents, s/p uvulopalatopharyngoplasty Psychiatric History: Depression - *Family History Maternal Family History: Family History (Last Reviewed 07/06/18 @ 08:17 by Jaelyn Leonard) Father CAD (coronary artery disease) Kidney disease Mother CHF (congestive heart failure) Aortic valve replaced Brother Atrial fibrillation History Items: Heart Disease, - - Hypothyroidism Paternal Family History: Family History (Last Reviewed 07/06/18 @ 08:17 by Jaelyn Leonard) Father CAD (coronary artery disease) Kidney disease Mother CHF (congestive heart failure) Aortic valve replaced Brother Atrial fibrillation History Items: Heart Disease, - - Hypothyroidism Lives: Alone Smoking Status: Current every day smoker Tobacco Use: Cigarettes Alcohol: None Drugs: None Objective: Vital Signs Temp Pulse Resp BP Pulse Ox 98.6 F 64 17 125/86 H 95 08/07/18 13:41 08/07/18 13:41 08/07/18 13:41 08/07/18 13:41 08/07/18 13:41 Oxygen Flow Rate (L/min) 3 Oxygen Delivery Method Room Air Weight: 265 lb 3.457 oz Body Mass Index (BMI) 39.3 Intake and Output for Last 24 Hours 08/05/18 08/06/18 08/07/18 23:59 23:59 23:59 Intake Total 736 / 736 1840 / 1840 Balance 736 / 736 1839 / 184 General: Awake, Alert, Oriented x 3 HEENT: PERRL, EOMI, Sclera Non Icteric Neck: Supple, Good ROM, No Lymph Node Enlargement Lungs: Clear to auscultation Cardiovascular: Regular Rhythm, Normal S1, Normal S2, No Murmurs, No Rubs, No Gallops Vascular: No Carotid Bruits, Normal Femoral Pulses, Normal Radial Pulses, Normal Dorsalis Pedal Pulse, Normal Posterior Tibial Pulses Abdomen: Bowel Sounds Present, Soft, Non Tender, No HSM, No Organomegaly Extremities: No Cyanosis, No Clubbing, No edema Neurological: No Focal Motor or Sensory Deficit 08/06/18 17:47: WBC 10.1, RBC 4.86, Hgb 14.8, Hct 43.1, MCV 88.7, MCH 30.5, MCHC 34.3, RDW 14.2, RDW Differential 45.3 H, Plt Count 376, MPV 9.1, Immature Gran % (Auto) 0.200, Neut % (Auto) 61.7, Lymph % (Auto) 23.9, [place] % (Auto) 7.8, Eos % (Auto) 6.0 H, Baso % (Auto) 0.4, Absolute Neuts (auto) 6.2, Total Counted Not Reportable 08/06/18 17:47: Sodium 137, Potassium 3.7, Chloride 105, Carbon Dioxide 27.0, Anion Gap 5, BUN 20 H, Creatinine 1.24, Est GFR (MDRD) Af Amer 78, Est GFR (MDRD) Non-Af 65, BUN/Creatinine Ratio 16.1, Glucose 118 H, Calcium 8.6, Troponin I < 0.015 08/06/18 17:47: Sodium Cancelled, Potassium Cancelled, Chloride Cancelled, Carbon Dioxide Cancelled, Anion Gap Cancelled, BUN Cancelled, Creatinine Cancelled, Est GFR (MDRD) Af Amer Cancelled, Est GFR (MDRD) Non-Af Cancelled, BUN/Creatinine Ratio Cancelled, Glucose Cancelled, Calcium Cancelled, Troponin I Cancelled 08/06/18 18:23: Troponin I < 0.015 08/06/18 23:55: Troponin I < 0.015 08/07/18 06:07: Triglycerides 151, Cholesterol 175, LDL Cholesterol 113, VLDL Cholesterol 30, HDL Cholesterol 32 L Rhythm: EKG: ECHO: Stress Test: Cardiac Cath: PCI: CT Surgery: Holter monitor: EPS: PPM: CXR: Chest CT Scan: Assessment/Plan 1. Chest pain: Patient states that this is similar to his previous NE. Even though his recent stress test was negative I think since he keeps coming back with chest pain it will be reasonable to proceed with coronary angiography. Risks and benefits extend to the patient. Patient also prefers this approach. We will schedule this for tomorrow.
[2018-08-07] MEDS: Lidocaine 5% Patch 1 PATCH TOPICAL (18:35)
[2018-08-07] MEDS: Calcium Carbonate 500 MG Tablet 1000 MG PO (20:07)
[2018-08-07] MEDS: Atorvastatin Calcium 80 MG Tablet PO (22:03)
[2018-08-08] VITALS (31 sets, daily range): BP systolic 84–186; BP diastolic 40–112; PULSE 48–76; RESP 11–19; TEMP 36.6–37.1; O2SAT 92–97
[2018-08-08 00:13] LABS: Bacteria 0 SEEN /hpf (None Seen); Mucous, Urine 0 SEEN /hpf (<or=2+); Red Blood Cells-Urine 0 SEEN /hpf (0-5); Squamous Epithelial Cells - UA 0 SEEN /hpf (0-5); White Blood Cells 0 SEEN /hpf (0-5)
[2018-08-08 00:25] LABS: Color, Urine Yellow (Yellow); Glucose, Dipstick Normal (Normal); Ketone-Dipstick Negative (Negative); Leukocyte Esterase-Dipstick Negative /ul (Negative); Nitrite-Dipstick Negative (Negative); Occult Blood-Urine Negative /ul (Negative); Protein-Dipstick Negative (Negative); Specific Gravity, Urine 1.015 (1.002-1.030); Urine Bilirubin Dipstick Negative (Negative); Urine Clarity Clear (Clear); Urine Urobilinogen Normal (Normal)
[2018-08-08 05:14] LABS: Absolute Neutrophil Count 4.6 X10^3/uL (2.0-7.7); Basophil# 0.05 X10^3/uL; Basophil% 0.6 % (0-1); Eosinophil# 0.77 X10^3/uL; Eosinophils% 9.2 % (0-5); Hematocrit 41.4 % (40-54); Hemoglobin 13.5 g/dl (13.0-16.5); Lymphocyte % 27.5 % (19-41); Mean Corp Hgb Conc 32.6 g/gl (32-36); Mean Corpuscular Hgb 29.7 pg (27.0-32.0); Mean Corpuscular Volume 91.2 fL (80-94); Mean Platelet Vol. 9.1 fl (6.2-12.0); Monocyte# 0.64 X10^3/uL; Monocyte% 7.7 % (0-10); Neutrophil # 4.57 X10^3/uL (2.7-7.7); Neutrophil % 54.8 % (47-70); Platelet Count 298 K/mm3 (150-450); RBC Distribution Width CV 14.4 % (11.6-14.6); RBC Distribution Width SD 47.6 fl (35.1-43.9); Red Blood Count 4.54 M/mm3 (4.6-6.2); White Blood Count 8.4 K/mm3 (4.4-11.0)
[2018-08-08 05:15] LABS: POSITIVE COUNT NO; POSITIVE DIFFERENTIAL NO; POSITIVE MORPHOLOGY NO
[2018-08-08 05:21] LABS: Prothrombin Time (Protime)PT. 13.3 SECONDS (11.7-14.9)
[2018-08-08 05:22] LABS: Partial Thromboplast Time 35.5 Seconds (24.1-36.2)
[2018-08-08 05:27] LABS: Anion Gap 8 (5-15); BUN 14 mg/dL (7-18); BUN/Creat Ratio 15.3 RATIO (10-20); Calcium,Total 8.3 mg/dL (8.5-10.1); Chloride 106 mmol/L (98-107); Creatinine, Serum 0.92 mg/dL (0.70-1.30); EST Glomerular Filtration Rate 92 mL/min (>60); Est Glom Filt Rate - Afr Amer 111 mL/min (>60); Glucose 110 mg/dL (74-106); Potassium 4.5 mmol/L (3.5-5.1); Sodium Level 139 mmol/L (136-145)
--- NOTE | 2018-08-08 05:55 | EKG12_ITS ---
Test Reason : AM EKG Blood Pressure : / mmHG Vent. Rate : 063 BPM Atrial Rate : 063 BPM P-R Int : 158 ms QRS Dur : 088 ms QT Int : 396 ms P-R-T Axes : 068 081 063 degrees QTc Int : 405 ms Normal sinus rhythm Normal ECG Confirmed by JUDITH ORELLANA, ENRICO ([id number]), continuity editor DARCIE PEPPER ([id number]) on 08/10/2018 12:27:25 PM Referred By: DR HOUSTON Confirmed By:ENRICO WONG MD
[2018-08-08] MEDS: Clopidogrel Bisulfate 75 MG Tablet PO (06:00)
[2018-08-08] MEDS: Aspirin E.C. 81 MG Tablet PO (06:00)
[2018-08-08] MEDS: Metoprolol Tartrate 25 MG Tablet PO ×2 (06:00→20:16)
[2018-08-08] MEDS: Lisinopril 10 MG Tablet PO (06:01)
[2018-08-08] MEDS: Levothyroxine 137 MCG Tablet PO (06:01)
[2018-08-08] MEDS: Acetaminophen 325 MG Tablet 650 MG PO (06:02)
--- NOTE | 2018-08-08 07:58 | NURSING ---
This RN called and gave report to screedman/laborer RNGrover.
--- NOTE | 2018-08-08 09:06 | PCM.PN.CARD ---
Subjectve: Patient seen and evaluated. Brought to the [facility] today. Objective: Vital Signs Temp Pulse Resp BP Pulse Ox 97.8 F 52 L 16 153/81 H 97 08/08/18 06:00 08/08/18 06:45 08/08/18 06:00 08/08/18 06:00 08/08/18 06:00 Oxygen Flow Rate (L/min) 3 Oxygen Delivery Method Room Air Weight: 268 lb 11.896 oz Body Mass Index (BMI) 39.3 Intake and Output for Last 24 Hours 08/06/18 08/07/18 08/08/18 23:59 23:59 23:59 Intake Total 736 / 736 3473 / 3473 592 / 592 Balance 736 / 736 3473 / 3473 592 / 592 General: Awake, Alert, Oriented x 3 HEENT: PERRL, EOMI, Sclera Non Icteric Neck: Supple, Good ROM, No Lymph Node Enlargement Lungs: Clear to auscultation Cardiovascular: Regular Rhythm, Normal S1, Normal S2, No Murmurs, No Rubs, No Gallops Vascular: No Carotid Bruits, Normal Femoral Pulses, Normal Radial Pulses, Normal Dorsalis Pedal Pulse, Normal Posterior Tibial Pulses Abdomen: Bowel Sounds Present, Soft, Non Tender, No HSM, No Organomegaly Extremities: No Cyanosis, No Clubbing, No edema Musculoskeletal: No Erythema Skin: No Rashes Lymphatic: No Lymph Node Enlargement Neurological: No Focal Motor or Sensory Deficit Psych/Mental Status: Appropriate 08/07/18 23:00: Urine Color Yellow, Urine Clarity Clear, Urine pH 6.0, Ur Specific [place] 1.015, Urine Protein Negative, Urine Glucose (UA) Normal, Urine Ketones Negative, Urine Occult Blood Negative, Urine Nitrite Negative, Urine Bilirubin Negative, Urine Urobilinogen Normal, Ur Leukocyte Esterase Negative, Urine RBC 0 SEEN, Urine WBC 0 SEEN 08/08/18 05:04: WBC 8.4, RBC 4.54 L, Hgb 13.5, Hct 41.4, MCV 91.2, MCH 29.7, MCHC 32.6, RDW 14.4, RDW Differential 47.6 H, Plt Count 298, MPV 9.1, Immature Gran % (Auto) 0.200, Neut % (Auto) 54.8, Lymph % (Auto) 27.5, [place] % (Auto) 7.7, Eos % (Auto) 9.2 H, Baso % (Auto) 0.6, Absolute Neuts (auto) 4.6, Total Counted Not Reportable 08/08/18 05:04: PT 13.3, INR 1.0, APTT 35.5 08/08/18 05:04: Sodium 139, Potassium 4.5, Chloride 106, Carbon Dioxide 25.0, Anion Gap 8, BUN 14, Creatinine 0.92, Est GFR (MDRD) Af Amer 111, Est GFR (MDRD) Non-Af 92, BUN/Creatinine Ratio 15.3, Glucose 110 H, Calcium 8.3 L Rhythm: EKG: ECHO: Stress Test: Cardiac Cath: PCI: CT Surgery: Holter monitor: EPS: PPM: CXR: Chest CT Scan: Medical Necessity - Tobacco Use Smoking Status: Current every day smoker Tobacco Use: Cigarettes Assessment/Plan 1. Coronary artery disease Cardiac catheterization performed today demonstrated short left main coronary artery Left anterior descending artery with previously placed proximal l stent patent Mid to distal left anterior descending artery stent patent Moderately severe disease noted at the takeoff of the diagonal vessel Left circumflex artery with no significant disease in a dominant vessel Ostial 50% stenosis a right coronary artery Preserved left ventricular ejection fraction Based on the above angiographic findings the patient will be referred to the interventional service for evaluation of the left anterior descending artery. 2. Hypertension Patient has known hypertension which is uncontrolled. We will continue to aggressively continue with the above 3. Risk factor modification We will continue with aggressive risk factor modification weight loss. Thank you for allowing me to participate in the care of your patient. Please don't hesitate to call if any issues arise
--- NOTE | 2018-08-08 09:12 | PN.CARD_ITS ---
Subjectve: Patient seen and evaluated. Brought to the Insurance And Benefits Clerk today. Objective: Vital Signs Temp Pulse Resp BP Pulse Ox 97.8 F 52 L 16 153/81 H 97 08/08/18 06:00 08/08/18 06:45 08/08/18 06:00 08/08/18 06:00 08/08/18 06:00 Oxygen Flow Rate (L/min) 3 Oxygen Delivery Method Room Air Weight: 268 lb 11.896 oz Body Mass Index (BMI) 39.3 Intake and Output for Last 24 Hours 08/06/18 08/07/18 08/08/18 23:59 23:59 23:59 Intake Total 736 / 736 3473 / 3473 592 / 592 Balance 736 / 736 3473 / 3473 592 / 592 General: Awake, Alert, Oriented x 3 HEENT: PERRL, EOMI, Sclera Non Icteric Neck: Supple, Good ROM, No Lymph Node Enlargement Lungs: Clear to auscultation Cardiovascular: Regular Rhythm, Normal S1, Normal S2, No Murmurs, No Rubs, No Gallops Vascular: No Carotid Bruits, Normal Femoral Pulses, Normal Radial Pulses, Normal Dorsalis Pedal Pulse, Normal Posterior Tibial Pulses Abdomen: Bowel Sounds Present, Soft, Non Tender, No HSM, No Organomegaly Extremities: No Cyanosis, No Clubbing, No edema Musculoskeletal: No Erythema Skin: No Rashes Lymphatic: No Lymph Node Enlargement Neurological: No Focal Motor or Sensory Deficit Psych/Mental Status: Appropriate 08/07/18 23:00: Urine Color Yellow, Urine Clarity Clear, Urine pH 6.0, Ur Specific [place] 1.015, Urine Protein Negative, Urine Glucose (UA) Normal, Urine Ketones Negative, Urine Occult Blood Negative, Urine Nitrite Negative, Urine Bilirubin Negative, Urine Urobilinogen Normal, Ur Leukocyte Esterase Negative, Urine RBC 0 SEEN, Urine WBC 0 SEEN 08/08/18 05:04: WBC 8.4, RBC 4.54 L, Hgb 13.5, Hct 41.4, MCV 91.2, MCH 29.7, MCHC 32.6, RDW 14.4, RDW Differential 47.6 H, Plt Count 298, MPV 9.1, Immature Gran % (Auto) 0.200, Neut % (Auto) 54.8, Lymph % (Auto) 27.5, [place] % (Auto) 7.7, Eos % (Auto) 9.2 H, Baso % (Auto) 0.6, Absolute Neuts (auto) 4.6, Total Counted Not Reportable 08/08/18 05:04: PT 13.3, INR 1.0, APTT 35.5 08/08/18 05:04: Sodium 139, Potassium 4.5, Chloride 106, Carbon Dioxide 25.0, Anion Gap 8, BUN 14, Creatinine 0.92, Est GFR (MDRD) Af Amer 111, Est GFR (MDRD) Non-Af 92, BUN/Creatinine Ratio 15.3, Glucose 110 H, Calcium 8.3 L Rhythm: EKG: ECHO: Stress Test: Cardiac Cath: PCI: CT Surgery: Holter monitor: EPS: PPM: CXR: Chest CT Scan: Medical Necessity - Tobacco Use Smoking Status: Current every day smoker Tobacco Use: Cigarettes Assessment/Plan 1. Coronary artery disease * Cardiac catheterization performed today demonstrated short left main coronary artery * Left anterior descending artery with previously placed proximal l stent patent * Mid to distal left anterior descending artery stent patent * Moderately severe disease noted at the takeoff of the diagonal vessel * Left circumflex artery with no significant disease in a dominant vessel * Ostial 50% stenosis a right coronary artery * Preserved left ventricular ejection fraction * * Based on the above angiographic findings the patient will be referred to the interventional service for evaluation of the left anterior descending artery. * 2. Hypertension * Patient has known hypertension which is uncontrolled. * We will continue to aggressively continue with the above * 3. Risk factor modification * We will continue with aggressive risk factor modification weight loss. * * Thank you for allowing me to participate in the care of your patient. Please don't hesitate to call if any issues arise
--- NOTE | 2018-08-08 10:08 | NURSING ---
This RN called to give report to Jerardo FUR TRAPPER.
[2018-08-08 10:36] LABS: ACT Activated Clotting Time 180 sec (74-137)
--- NOTE | 2018-08-08 10:45 | EKG12_ITS ---
Test Reason : AM EKG Blood Pressure : / mmHG Vent. Rate : 057 BPM Atrial Rate : 057 BPM P-R Int : 168 ms QRS Dur : 090 ms QT Int : 404 ms P-R-T Axes : 068 079 066 degrees QTc Int : 393 ms Sinus bradycardia Otherwise normal ECG When compared with ECG of 08-AUG-2018 05:37, MANUAL COMPARISON REQUIRED, DATA IS UNCONFIRMED Confirmed by KATHERIN ORELLANA, PAUL ([id number]), newspaper copy editor DARCIE PEPPER ([id number]) on 08/16/2018 7:09:15 AM Referred By: ROSEMARIE Confirmed By:MIKAL PANDEY MD
--- NOTE | 2018-08-08 10:47 | CL.I_ITS ---
Patient Name: EVARISTO HAYNES Study Date: 08/08/2018 Performing: Maxwell Townsend MD Ht: 68.5 inches 174 cm : 1965 Wt: 268.96 lbs 122 kg Age: 53 Gender: male BSA: 2.33 PROCEDURE(S) PERFORMED [id number] W OR WO PTCA, SINGLE CORONARY ARTERY [id number], EACH ADD'L CORONARY ART, SAME MAJOR CLINICAL PROFILE AND CO-MORBIDITIES Indications: Worsening Angina, Stable Known CAD Heart Failure: None Stress/Imaging Date: 06/22/2018 Stress Test with SPECT MPI: Negative Angina Classification Anginal Classification w/in 2 Weeks: CCS III CAD Presentations: Unstable angina. Other: Identical anginal symptoms prior to previous PCI to LA D Comorbidities/Risk Factors: Hypertension Dyslipidemia Prior PCI CONCLUSIONS Successful PCI with PTCA to the ostial DIAG #2 with a 2.0 x 8 balloon; 75%-->30%, no dissection. Successful PTCA/JENNY to MID LAD with a 2.5 x 12 Promus Synergy; 75%-->0%, no dissection. Successful Mynx Closure of RFA. RECOMMENDATIONS Highly recommend quitting all tobacco products Follow up with primary material coordinator Risk factor modification ASA Indefinitley Plavix for at least 12 months Routine post interventional care Refer for Outpatient Cardiac Rehab Manual sheath removal per protocol Follow up with Dr. Thurston DESCRIPTION OF PROCEDURE The patient arrived to the procedure lab. The risks and benefits of the procedure as well as a full d escription of our services here and current unavailability of surgical backup were fully explained to the patient and/or their significant other prior to the catheterization. The Timeout was completed, verifying the correct patient and procedure. The patient's procedural site was prepped and draped in the usual fashion. Local anesthetic was given subcutaneously to right radial region with Lidocaine 2% . Local anesthetic was given subcutaneously to right groin region with Lidocaine 2% Using a modified Seldinger technique,arterial access was obtained via the right radial artery, a 6Fr sheath was insert ed., arterial access was obtained via the right femoral artery, a 6Fr sheath was inserted. Right Joshua nary Artery selective angiography was performed in multiple views using a 5 Fr. 4.0 Brillion catheter. L eft Coronary Artery selective angiography was performed in multiple views using a 5 Fr. 4.0 Brillion catheter. Left Ventriculography was performed in [place] projection using a [address] LV to AO pullback pressures were then recorded.The images were reviewed and options discussed. A decision was then made to proceed with an Intervention, IVUS or other adjunct procedure. EBU 3.75 Guide catheter was inserted and engaged into the LCA. [employer] [place] Guide wire was advan radha to the LAD. [employer] [place] (2) Guide wire was inserted as a opal wire in the Diag 2 Emerge 2.0 x 8 Balloon catheter was inserted. Balloon catheter was advanced across lesion in the second diagonal, ostial PTCA balloon inflated at 8 atms for 15 secs. PTCA balloon inflated at 8 atms for 15 secs. PTCA balloon inflated at 6 atms for 60 secs. Emerge 2.0 x 8 Balloon catheter was reinserted Balloon ike ter was advanced across lesion in the LAD, mid. PTCA balloon inflated at 8 atms for 50 secs. Angiogra m performed post balloon dilatation. Synergy 2.5 x 12 Drug Eluting stent was inserted. Drug Eluting s tent was advanced across the lesion in the LAD, mid. Angiogram performed pre stent deployment. Angiog yudith performed post stent deployment. [employer] [place] (1) Guide wire was repositioned to the 2nd Diagona l [employer] [place] (2) Guide wire was repositioned to the LAD Emerge 2.0 x 8 Balloon catheter was reinserted Balloon catheter was advanced across lesion in the second diagonal, ostial PTCA balloo n inflated at 8 atms for 50 secs. Angiogram performed post balloon dilatation. Contrast was injected through the sheath and the Right Iliac and Femoral artery were assessed for possible closure device. The arterial sheath was pulled and a TR Band was applied for hemostasis. The arterial sheath was pul led and a Mynx closure device was deployed for hemostasis INTERVENTION INFORMATION LESION SITE: 2nd Diagonal (Ostial) Lesion Complexity: Non-High/Non-C, lesion at bifurcation: Yes, thrombus present: No, lesion length: 8 mm, culprit lesion: No Pre Stenosis: 75 % Pre intervention MELISSA flow: 3 PROCEDURE: Balloon Angioplasty Post Stenosis: 30 % Post intervention MELISSA flow: 3 Lesion Devices: Medtronic 6 Fr EBU3.75 100cm Guide Catheter [place] .014 [employer] [place] Straight 190cm [place] .014 [employer] [place] Straight 190cm [place]ano Sci EMERGE MR 2.00x08 BALLOON LESION SITE: LAD (Mid) Lesion Complexity: Non-High/Non-C, lesion at bifurcation: Yes, thrombus present: No, lesion length: 1 2 mm, culprit lesion: Yes Pre Stenosis: 75 % Pre intervention MELISSA flow: 3 PROCEDURE: Drug Eluting Stent with pre dilatation. Post Stenosis: 0 % Post intervention MELISSA flow: 3 Lesion Devices: Medtronic 6 Fr EBU3.75 100cm Guide Catheter [place] .014 [employer] [place] Straight 190cm [place] .014 [employer] [place] Straight 190cm Ch[employer] Sci EMERGE MR 2.00x08 BALLOON [place] Synergy MR JENNY 2.50x12 COMPLICATIONS No Complications PROCEDURE MEDICATIONS Versed 1 mg IV Fentanyl 50 mcg IV Fentanyl 25 mcg IV Fentanyl 25 mcg IV Fentanyl 25 mcg IV Fentanyl 25 mcg IV Fentanyl 25 mcg IV Fentanyl 25 mcg IV Oxygen: 2 L/min via nasal cannula Heparin diluted in 23cc Heparinized saline. Patient given 10cc IA of this solution. 08/08/2018 08:44: 39 Heparin 6000 unit(s) IV 08/08/2018 09:56:49 Nitro 200 mcg IC 08/08/2018 09:58:46 Nitro 200 mcg IC 08/08/2018 09:58:46 Nitro 200 mcg IC 08/08/2018 10:12:21 Nitro 200 mcg IC 08/08/2018 10:17:01 Verapamil 2.5mg, Ntg 100mcgs, 2000 units of Heparin diluted in 23cc Heparinized saline. Patient give n 10cc IA of this solution. 08/08/2018 08:44:39 IV Bolus: .9 NaCl 250 ml total 08/08/2018 09:56:44 IV Fluids: .9 NaCl decreased to 150 ml/hr 08/08/2018 10:30:14 SUMMARY OF HEMODYNAMIC DATA Time AIR REST ECG 08:21:11 AO 126/91 (108) SA 08:46:32 LV 127/26, 36 08:57:18 LV 126/28, 34 08:57:24 LV 120/17, 36 08:58:06 LV 120/16, 35 08:58:12 LVp 121/17, 36 08:58:16 AOp 131/85 (105) 08:58:21 AO 120/74 (93) 09:58:12 Signed By Maxwell Townsend MD On 08/08/2018 10:47:00 Maxwell Townsend MD
--- NOTE | 2018-08-08 11:38 | CRPHASE1_ITS ---
Patient Communication PHII Cardiac Rehab Discussed with Patient:: Yes Guide to Cardiac Rehab Given to Patient:: Yes Cardiac Rehab Facility Choice List Given to Patient:: Yes Choice Program [facility] CR PHII:: Communication Given to CR, Refer to [facility] Refer Phase II Cardiac Rehab:: Yes Sessions:: 36 sessions - 3 days/wk, 12 weeks Risk Factors/Lifestyle Smoking Status: Current every day smoker Hx Hypertension: Yes Hx Diabetes Mellitus Type 1: No Hx Diabetes Mellitus Type 2: No Hx Metabolic Disorders: Yes Hx Dyslipidemia: Yes Hx Obesity: Yes Height: 5 ft 8 in - BMI 40.3 Stress: Home/Family Risk Factor for Sedentary Lifestyle: Moderate Risk Family History: Family History (Last Reviewed 07/06/18 @ 08:17 by Jaelyn Leonard) Father CAD (coronary artery disease) Kidney disease Mother CHF (congestive heart failure) Aortic valve replaced Brother Atrial fibrillation Laboratory Values: Cardiac Rehab Phase I Labs Triglycerides 151 mg/dL (-199) 08/07/18 06:07 Cholesterol 175 mg/dL (200) 08/07/18 06:07 LDL Cholesterol 113 mg/dL (0-130) 08/07/18 06:07 HDL Cholesterol 32 mg/dL (40-) L 08/07/18 06:07 Phase I Education Given On:: [place], Nutrition, Antiplatelet medication, Smoking cessation Issues Affecting Care:: None Knowledge of Condition:: Yes Learning Preferences: Verbal, Written Medical/Surgical History [place]:: No Diabetes:: No Hypertension:: Yes Dyslipidemia:: Yes Discharge/Home/Social Eval Discharge Disposition: Home Cardiac Rehabilitation Info Cardiac Rehabilitation Program Information: Cardiac Rehabilitation is important for patients like you who are recovering from a heart problem. Cardiac rehabilitation programs are recognized as integral to the continued care of the patient with coronary heart disease. The cardiac rehabilitation program is designed to optimize a patient's physical, psychological, and social functioning. Health rehab care assistant work in cardiac rehabilitation programs and assist you with getting the treatments you need to get stronger and healthier - like exercise, healthy eating habits, and medications. Cardiac rehabilitation has been show to help people with heart problems live longer and have better life enjoyment than people who do not go to cardiac rehabilitation. Please contact the Cardiac Rehabilitation Program at [facility] at in two weeks if you have not heard from them.
[2018-08-08] MEDS: diazePAM 5 MG Tablet PO (11:39)
[2018-08-08] MEDS: Morphine 2 MG/ML Syringe IV ×3 (11:39→20:06)
[2018-08-08] MEDS: DULoxetine Hcl 60 MG Capsule PO (11:40)
[2018-08-08] MEDS: Lidocaine 5% Patch 1 PATCH TOPICAL (11:40)
--- NOTE | 2018-08-08 11:40 | CRPH1.INST_ITS ---
General Education CAD and cardiac anatomy and function:: Patient communicates acknowledgment Explanation of diagnoses and procedures:: Patient communicates acknowledgment Sign/Symptoms of NM:: Patient communicates acknowledgment Antiplatelet therapy: Patient communicates acknowledgment Proper use of NTG-SL: Not instructed Emergency procedures and activation of EMS: Patient communicates acknowledgment Compliance of all prescribed medications: Patient communicates acknowledgment Smoking Patient Nicotine/Smoking Risk Factors Are:: Cigarettes Recommendations Include:: Smoking cessation strategies/Smoking packet, Second- hand smoke recommendation Nicotine/Smoking Response Code:: Patient communicates acknowledgment Dyslipidemia Patient Dyslipidemia Risk Factors Are:: Total Cholesterol, Triglycerides, HDL, LDL Recommendations Include:: Lipid profile provided, Reviewed NCEP/ATP guidelines, Therapeutic Lifestyle Change dietary guidelines Dyslipidemia Response Code:: Patient communicates acknowledgment Overweight/Obesity Patient Overweight/Obesity Risk Factors Are:: Obesity - > or = 30 Recommendations Include:: Weight loss of 5-10%, Reduced calorie diet, Exercise 5-7 times/week Overweight/Obesity:: Patient communicates acknowledgment Hypertension Recommendations Include:: Maintain BP <130/85, DASH dietary guidelines, Decrease/maintain normal body weight, Moderation of ETOH Hypertension:: Patient communicates acknowledgment Heart Disease Heart Disease Response Code:: Patient communicates acknowledgment Diabetes Patient Diabetes Risk Factors Are:: No documented hx of diabetes Metabolic Syndrome Patient Metabolic Syndrome Risk Factors Are [3 of 5]:: Waist circumference > 35 [female] or 40 [male], High triglyceride >150, Hypertension, Low HDL <40 [male] or < 50 [female] Recommendations Include:: Reinforce compliance to risk factor modifications, Encouraged follow-up with Primary Care Physician Metabolic Syndrome Response Code:: Patient communicates acknowledgment Sedentary Patient Sedentary Risk Factors Are:: Lack of regular exercise Recommendations Include:: Aerobic exercise 5-7 times/week for 20-30 minutes continuously, Benefits of regular exercise, Discussed home walking program, Monitored Outpatient Cardiac Rehab Sedentary Response Code:: Patient communicates acknowledgment Stress Recommendations Include:: Identification of stressors, and assessment of coping skills, Stress management techniques Stress Response Code:: Patient communicates acknowledgment
[2018-08-08] MEDS: 0.9% Normal Saline 1,000 ML 150 ML IV (11:41)
[2018-08-08] MEDS: buPROPion (SR) 150 MG Tablet.SA PO ×2 (11:41→20:16)
--- NOTE | 2018-08-08 11:44 | CASEMGMT ---
Social Work SW met with pt and introduced self. Pt lives alone and plans to return home independently when d/c from hospital. Pt dozing in and out of sleep as SW attempted to talk to him. Pt is currently working at a new job and does not yet have insurance through the employer but will after he works there for a short amount of time. Pt stating he has talked to PFS. Pt with some concerns about prescription affordability. Resources provided on prescription assistance if new medications are needed. SW will remain available should further needs arise. MINDY Watts
--- NOTE | 2018-08-08 13:15 | PCM.PROGNOTE ---
Patient Problems: Active and Suspected Problems (Last Reviewed 07/06/18 @ 08:17 by Jaelyn Leonard) Chest pain (Acute) Subjective: Pt tolerated cath and stent placement well. Currently resting comfortably in bed NAD. No CP/SOB/LH/Dizziness/palp. He continues to complain of severe lumbar spinal pain marked by tightness in the muscles radiating into the hip. He says the lidocaine patch and morphine have not helped. - Physical Exam General: Alert, Oriented x3, Cooperative HEENT: Atraumatic, PERRLA, EOMI, Normocephalic Neck: Supple, No JVD, Negative Carotid Bruits Lungs: Clear to auscultation, Normal air movement Cardiovascular: Regular rate, No murmurs Abdomen: Bowel Sounds Present, Soft, Non Tender Extremities: No edema, Capillary Refill Less than 3 Seconds Skin: No rashes, No breakdown Musculoskeletal: No Tenderness to Palpation of Joints or Extremities Neurological: Cranial nerves II-XII grossly intact Psych/Mental Status: Normal Affect, Appropriate, Alert and oriented to time, place, person, mood and affect Vital Signs Temp Pulse Resp BP Pulse Ox 97.8 F 53 L 12 104/70 92 08/08/18 12:00 08/08/18 12:30 08/08/18 12:30 08/08/18 12:30 08/08/18 12:30 Oxygen Flow Rate (L/min) 3 Oxygen Delivery Method Room Air Weight: 268 lb 11.896 oz Body Mass Index (BMI) 39.3 Intake and Output for Last 24 Hours 08/06/18 08/07/18 08/08/18 23:59 23:59 23:59 Intake Total 736 / 736 3473 / 3473 592 / 592 Balance 736 / 736 3473 / 3473 592 / 592 Laboratory Tests Past 24 Hrs 08/07/18 08/08/18 08/08/18 23:00 05:04 05:04 WBC 8.4 RBC 4.54 L Hgb 13.5 Hct 41.4 MCV 91.2 MCH 29.7 MCHC 32.6 RDW 14.4 RDW Differential 47.6 H Plt Count 298 MPV 9.1 Immature Gran % (Auto) 0.200 Neut % (Auto) 54.8 Lymph % (Auto) 27.5 [place] % (Auto) 7.7 Eos % (Auto) 9.2 H Baso % (Auto) 0.6 Absolute Neuts (auto) 4.6 Absolute Lymphs (auto) 2.30 Total Counted Not Reportable PT 13.3 INR 1.0 APTT 35.5 Activated Clotting Time Sodium Potassium Chloride Carbon Dioxide Anion Gap BUN Creatinine Estim Creat Clear Calc Est GFR (MDRD) Af Amer Est GFR (MDRD) Non-Af BUN/Creatinine Ratio Glucose Calcium Urine Color Yellow Urine Clarity Clear Urine pH 6.0 Ur Specific [place] 1.015 Urine Protein Negative Urine Glucose (UA) Normal Urine Ketones Negative Urine Occult Blood Negative Urine Nitrite Negative Urine Bilirubin Negative Urine Urobilinogen Normal Ur Leukocyte Esterase Negative Urine RBC 0 SEEN Urine WBC 0 SEEN Ur Squamous Epith Cells 0 SEEN Urine Bacteria 0 SEEN Urine Mucus 0 SEEN 08/08/18 08/08/18 05:04 10:26 WBC RBC Hgb Hct MCV MCH MCHC RDW RDW Differential Plt Count MPV Immature Gran % (Auto) Neut % (Auto) Lymph % (Auto) [place] % (Auto) Eos % (Auto) Baso % (Auto) Absolute Neuts (auto) Absolute Lymphs (auto) Total Counted PT INR APTT Activated Clotting Time 180 H Sodium 139 Potassium 4.5 Chloride 106 Carbon Dioxide 25.0 Anion Gap 8 BUN 14 Creatinine 0.92 Estim Creat Clear Calc 88.80 Est GFR (MDRD) Af Amer 111 Est GFR (MDRD) Non-Af 92 BUN/Creatinine Ratio 15.3 Glucose 110 H Calcium 8.3 L Urine Color Urine Clarity Urine pH Ur Specific [place] Urine Protein Urine Glucose (UA) Urine Ketones Urine Occult Blood Urine Nitrite Urine Bilirubin Urine Urobilinogen Ur Leukocyte Esterase Urine RBC Urine WBC Ur Squamous Epith Cells Urine Bacteria Urine Mucus Medical Necessity - Tobacco Use Smoking Status: Current every day smoker Tobacco Use: Cigarettes Assessment/Plan All Active Problems (Last Reviewed 07/06/18 @ 08:17 by Jaelyn Leonard) Chest pain (Acute) Segmental dysfunction of thoracic region (Acute) Segmental and somatic dysfunction of lumbar region (Acute) Segmental and somatic dysfunction of cervical region (Acute) 1. Chest pain, CAD - today had successful PTCA of the ostial diag #2 and mid LAD. Currently no symptoms. Continue asa/plavix/statin/metoprolol/lisinopril 2. Nicotine abuse - not interested in cessation. Strongly encouraged. 3. Hypothyroidism - synthroid 4. Depression - wellbutrin and cymbalta 5. Lumbar back pain - tightness, no help from lidocaine or morphine. Zanaflex prn. Rec. o/p f/u if this persists. DVT ppx: heparin This patient was seen by Stone Rosas PA-C under the supervision of Dr. Cowan
[2018-08-08] MEDS: tiZANidine HCl 2 MG Tablet PO (14:02)
[2018-08-08] MEDS: 0.9% NaCl Peripheral Flush Adult/Peds IV (20:07)
[2018-08-08] MEDS: Atorvastatin Calcium 80 MG Tablet PO (20:16)
[2018-08-09] VITALS (12 sets, daily range): BP systolic 126–168; BP diastolic 81–117; PULSE 54–68; RESP 10–20; TEMP 36.2–36.6; O2SAT 95–99
[2018-08-09] MEDS: Morphine 2 MG/ML Syringe IV ×2 (00:16→06:33)
[2018-08-09] MEDS: 0.9% NaCl Peripheral Flush Adult/Peds IV (00:16)
[2018-08-09] MEDS: amLODIPine 5 MG Tablet PO ×2 (02:41→09:44)
[2018-08-09] MEDS: diazePAM 5 MG Tablet PO (03:07)
[2018-08-09 05:47] LABS: Anion Gap 6 (5-15); BUN 16 mg/dL (7-18); Calcium,Total 8.1 mg/dL (8.5-10.1); Chloride 105 mmol/L (98-107); Cholesterol 126 mg/dL (200); EST Glomerular Filtration Rate 83 mL/min (>60); Est Glom Filt Rate - Afr Amer 100 mL/min (>60); Glucose 129 mg/dL (74-106); High Density Lipoprotein 30 mg/dL; Potassium 3.9 mmol/L (3.5-5.1); Sodium Level 139 mmol/L (136-145); Triglycerides 156 mg/dL; Very Low Density Lipoprotein 31 mg/dL (5-40)
[2018-08-09 05:58] LABS: Hematocrit 40.3 % (40-54); Hemoglobin 12.9 g/dl (13.0-16.5); Mean Corpuscular Hgb 29.6 pg (27.0-32.0); Mean Corpuscular Volume 92.4 fL (80-94); Mean Platelet Vol. 9.6 fl (6.2-12.0); Platelet Count 287 K/mm3 (150-450); RBC Distribution Width CV 14.4 % (11.6-14.6); RBC Distribution Width SD 47.3 fl (35.1-43.9); Red Blood Count 4.36 M/mm3 (4.6-6.2); White Blood Count 10.1 K/mm3 (4.4-11.0)
[2018-08-09 06:07] LABS: Scan Indicated on CBC? Y/N NO
[2018-08-09] MEDS: Levothyroxine 137 MCG Tablet PO (06:35)
[2018-08-09] MEDS: Aspirin E.C. 81 MG Tablet PO (08:06)
--- NOTE | 2018-08-09 08:35 | PN.CARD_ITS ---
Subjectve: Patient seen and evaluated. Appears to be stable. Objective: Vital Signs Temp Pulse Resp BP Pulse Ox 97.2 F L 63 20 H 156/88 H 99 08/09/18 08:00 08/09/18 08:00 08/09/18 08:00 08/09/18 08:00 08/09/18 08:00 Oxygen Flow Rate (L/min) 2 Oxygen Delivery Method Room Air Weight: 269 lb 13.533 oz Body Mass Index (BMI) 39.3 Intake and Output for Last 24 Hours 08/07/18 08/08/18 08/09/18 23:59 23:59 23:59 Intake Total 3473 / 3473 2072 / 2552 580 / 580 Output Total 600 / 1225 1425 / 1425 Balance 3473 / 3473 1472 / 1327 -845 / -845 General: Awake, Alert, Oriented x 3 HEENT: PERRL, EOMI, Sclera Non Icteric Neck: Supple, Good ROM, No Lymph Node Enlargement Lungs: Clear to auscultation Cardiovascular: Regular Rhythm, Normal S1, Normal S2, No Murmurs, No Rubs, No Gallops Vascular: No Carotid Bruits, Normal Femoral Pulses, Normal Radial Pulses, Normal Dorsalis Pedal Pulse, Normal Posterior Tibial Pulses Abdomen: Bowel Sounds Present, Soft, Non Tender, No HSM, No Organomegaly Extremities: No Cyanosis, No Clubbing, No edema Musculoskeletal: No Erythema Skin: No Rashes Lymphatic: No Lymph Node Enlargement Neurological: No Focal Motor or Sensory Deficit 08/09/18 05:10: Sodium 139, Potassium 3.9, Chloride 105, Carbon Dioxide 28.0, Anion Gap 6, BUN 16, Creatinine 1.00, Est GFR (MDRD) Af Amer 100, Est GFR (MDRD) Non-Af 83, BUN/Creatinine Ratio 16.0, Glucose 129 H, Calcium 8.1 L, Triglycerides 156, Cholesterol 126, LDL Cholesterol 65, VLDL Cholesterol 31, HDL Cholesterol 30 L 08/09/18 05:10: WBC 10.1, RBC 4.36 L, Hgb 12.9 L, Hct 40.3, MCV 92.4, MCH 29.6, MCHC 32.0, RDW 14.4, RDW Differential 47.3 H, Plt Count 287, MPV 9.6 Rhythm: EKG: ECHO: Stress Test: Cardiac Cath: PCI: CT Surgery: Holter monitor: EPS: PPM: CXR: Chest CT Scan: Medical Necessity - Tobacco Use Smoking Status: Current every day smoker Tobacco Use: Cigarettes Assessment/Plan 1. Coronary artery disease * Cardiac catheterization performed today demonstrated short left main coronary artery * Left anterior descending artery with previously placed proximal l stent patent * Mid to distal left anterior descending artery stent patent * Moderately severe disease noted at the takeoff of the diagonal vessel * Left circumflex artery with no significant disease in a dominant vessel * Ostial 50% stenosis a right coronary artery * Preserved left ventricular ejection fraction * * Based on the above angiographic findings the patient was referred to the interventional service for evaluation of the left anterior descending artery. The above was done without incident. This morning patient looks well and will be discharged for outpatient follow-up. * 2. Hypertension * Patient has known hypertension which is uncontrolled. * We will continue to aggressively continue with the above * 3. Risk factor modification * We will continue with aggressive risk factor modification weight loss. * * Thank you for allowing me to participate in the care of your patient. Please don't hesitate to call if any issues arise
[2018-08-09] MEDS: Clopidogrel Bisulfate 75 MG Tablet PO (09:41)
[2018-08-09] MEDS: Metoprolol Tartrate 25 MG Tablet PO (09:41)
[2018-08-09] MEDS: Lisinopril 10 MG Tablet PO (09:41)
[2018-08-09] MEDS: Lidocaine 5% Patch 1 PATCH TOPICAL (09:41)
[2018-08-09] MEDS: DULoxetine Hcl 60 MG Capsule PO (09:41)
[2018-08-09] MEDS: buPROPion (SR) 150 MG Tablet.SA PO (09:41)
--- NOTE | 2018-08-09 09:42 | CASEMGMT ---
RN CM Assessment Presentation: PCI of @nd diagonal and mid lad Intro role of CM and purpose of RN CM assessment. Demographics, PCP and Pharmacy verified. PCP: Dr. Murillo Specialists: Dr. Townsend Preferred Pharmacy: [facility] Insurance: Self pay, does not have insurance @ this job. Prescription Benefit: NO. Discussed prescriptions will be needed on dc. Pt states he can likely afford. RN CM requested if assist is needed to let CM/SW know and we can discuss prescriptons assistance through [facility]. LNOK: Brother, Hany Velazquez Living Arrangements: Lives independently, no care needs per pt. Transportation: drives DME: none HHC: none Patient DC goals: Home DC PLAN: Home Alejandrina PHAM RN ACM
--- NOTE | 2018-08-09 10:00 | EKG12_ITS ---
Test Reason : PCI Blood Pressure : / mmHG Vent. Rate : 049 BPM Atrial Rate : 049 BPM P-R Int : 162 ms QRS Dur : 086 ms QT Int : 420 ms P-R-T Axes : 068 084 059 degrees QTc Int : 379 ms Marked sinus bradycardia Abnormal ECG Confirmed by KATHERIN ORELLANA, PAUL ([id number]), writer editor JAYRO BENZ ([id number] on 08/17/2018 8:28:36 AM Referred By: NEL Confirmed By:MIKAL PANDEY MD
--- NOTE | 2018-08-09 10:19 | PCM.DC ---
- Discharge Diagnoses Current Active Problems: Current Active and Chronic Problems (Last Updated 08/08/18 @ 18:08 by Patricia Cummings) Chest pain (Acute) You will use the following diet at home:: Cardiac - weight loss Your food should be the consistency of: Regular Your liquids should be the consistency of: Regular/Thin Discharge Activity: - - start a walking program and work up to 30 minutes 6-7 times a week May resume sexual activity in: 10-14 days Call your doctor if your incision/area has: Continuous Slow Oozing, Sudden Increased Bleeding, Increased Pain/ Swelling, Increased Redness, Foul Smelling Discharge, Swelling at the incision site Call your doctor if you observe: Fever of 101 or Higher, Shortness of breath, Dizziness, Fainting spells, Swelling in the ankles, Chest pain Additional Instructions: 1. It would be in your best interest to quit smoking, lose weight and stick to a low fat diet. The LDL cholesterol is 113 on Atorvastatin 40 mg and the dose has been increased to 80 mg to better control the LDL.....the goal in patients with known coronary disease is <70. Pending Tests on Discharge: none Allergies/Adverse Reactions: Allergies Sulfa (Sulfonamide Antibiotics) Allergy (Verified 08/06/18 17:35) Other Medications to take at Discharge aspirin 81 mg tablet,delayed release 81 mg PO DAILY 05/19/17 bupropion HCl SR 150 mg tablet,12 hr sustained-release 150 mg PO BID 05/19/17 duloxetine 60 mg capsule,delayed release 60 mg PO QDAY 05/19/17 metoprolol tartrate 25 mg tablet 25 mg PO BID 05/19/17 Levothyroxine Sodium [Synthroid] 137 mcg PO DAILY 05/29/18 clopidogrel 75 mg tablet 75 mg PO DAILY #90 tab 06/07/18 lisinopril 10 mg tablet 10 mg PO DAILY #90 tab 06/07/18 Acetaminophen [Tylenol Tablet] 650 mg PO Q6H PRN PRN tablet 08/09/18 Amlodipine [Norvasc] 5 mg PO DAILY #30 tab 08/09/18 Atorvastatin Calcium [Lipitor] 80 mg PO QHS #30 tab 08/09/18 The following prescriptions were given: Atorvastatin Calcium [Lipitor] 80 mg PO QHS #30 tab Transmission Status: Pending to [facility] [address] [place] [address] Amlodipine [Norvasc] 5 mg PO DAILY #30 tab Transmission Status: Pending to [facility] [id number] [id number] Primary Care Physician: Bobby Murillo Chi, MD [Primary Care Provider] - Please follow up with your Primary Care Physician in: 1 week to check the BP Test Results: Test results from this visit will be discussed in further detail at your follow-up appointment, if applicable. Please Follow Up With: Kulwant Thurston MD Proposed Discharge Date: 08/09/18
--- NOTE | 2018-08-09 14:52 | DS.PCM_ITS ---
Discharge Date and Diagnosis - Problem List Patient Problems: Active and Suspected Problems (Last Updated 08/09/18 @ 12:03 by Patricia Cummings) Unstable angina (Acute) Date of Admission: 08/06/18 Date of Discharge: 08/09/18 - Primary Discharge Diagnosis Active and Suspected Problems (Last Updated 08/09/18 @ 12:03 by Patricia Cummings) Unstable angina (Acute) CAD Nicotine abuse Morbid obesity HTN/HLD Hypothyroidism Depression - Secondary Discharge Diagnosis Chronic Problems (Last Updated 08/09/18 @ 12:03 by Patricia Cummings) Pure hypercholesterolemia (Chronic) Essential (primary) hypertension (Chronic) History of coronary artery stent placement (Chronic 08/08/18) [id number] LAD w/ 3.0 x 18 mm Resolute and Mid LAD w/ 2.5 x 12 mm Resolute 03/01/2017; PCI-JENNY to MID LAD with a 2.5 x 12 mm Promus Synergy and POBA-D2 08/08/18 Nicotine dependence (Chronic) Atherosclerosis of coronary artery of [place] heart without angina pectoris (Chronic) [id number]-APU-[id number] LAD w/ 3.0 x 18 mm Resolute and Mid LAD w/ 2.5 x 12 mm Resolute 03/01/2017; PCI-JENNY to MID LAD with a 2.5 x 12 mm Promus Synergy and POBA-D2 08/08/18 Hospital Course and Treatment Imaging Results: RAD/Chest 1 View (Portable) IMPRESSION: Stable, nonacute portable x-ray examination of the chest. Consults: Goldie - Cardiology Operations: None Procedures: Cardiac catheterization Summary of Care Provided: Hospital course: The patient is a 53 year old M with past medical history of above remarkable for CAD with prior MO, with ongoing nicotine abuse, who presented to the emergency room with complaints of chest pain described as intermittent stabbing midsternal pain that felt similar to the pain that he had prior to his last MO. He had had a negative stress test 06/2018. Cardiology was consulted and he was admitted to the PCU on telemetry. EKG was negative for acute changes, troponins were negative, and he had no events on telemetry. Given his history and recent negative stress test was felt he would benefit from a heart catheterization. He was taken for heart cath and found to have significant disease, and he underwent successful PTCA of the ostial diagonal #2, and mid LAD. He recovered well and was discharged the following day to home. He was strongly advised to discontinue smoking however he has expressed that he has no intention of doing this. He was discharged on Norvasc, aspirin, clopidogrel, atorvastatin, lisinopril, and metoprolol. He was discharged home in stable condition. He is to follow-up with cardiology as directed and follow-up with his PCP in 1 to 2 weeks. This patient was seen by Stone Rosas PA-C under the supervision of Doctor Camryn. [] Patient Problems: Active and Suspected Problems (Last Updated 08/09/18 @ 12:03 by Patricia Cummings) Unstable angina (Acute) - Physical Exam General: Alert, Oriented x3, Cooperative HEENT: Atraumatic, PERRLA, EOMI, Normocephalic Neck: Supple, No JVD, Negative Carotid Bruits Lungs: Clear to auscultation, Normal air movement Cardiovascular: Regular rate, No murmurs Abdomen: Bowel Sounds Present, Soft, Non Tender Extremities: No edema, Capillary Refill Less than 3 Seconds Skin: No rashes, No breakdown Musculoskeletal: No Tenderness to Palpation of Joints or Extremities Neurological: Cranial nerves II-XII grossly intact Psych/Mental Status: Normal Affect, Appropriate, Alert and oriented to time, place, person, mood and affect Vital Signs Temp Pulse Resp BP Pulse Ox 97.5 F L 68 16 138/87 H 95 08/09/18 09:35 08/09/18 09:41 08/09/18 09:35 08/09/18 09:41 08/09/18 09:35 Oxygen Flow Rate (L/min) 2 Oxygen Delivery Method Room Air Weight: 269 lb 13.533 oz Body Mass Index (BMI) 39.3 Intake and Output for Last 24 Hours 08/07/18 08/08/18 08/09/18 23:59 23:59 23:59 Intake Total 3473 / 3473 2072 / 2552 580 / 580 Output Total 600 / 1225 1425 / 1425 Balance 3473 / 3473 1472 / 1327 -845 / -845 Laboratory Tests Past 24 Hrs 08/09/18 08/09/18 05:10 05:10 WBC 10.1 RBC 4.36 L Hgb 12.9 L Hct 40.3 MCV 92.4 MCH 29.6 MCHC 32.0 RDW 14.4 RDW Differential 47.3 H Plt Count 287 MPV 9.6 Sodium 139 Potassium 3.9 Chloride 105 Carbon Dioxide 28.0 Anion Gap 6 BUN 16 Creatinine 1.00 Estim Creat Clear Calc 81.70 Est GFR (MDRD) Af Amer 100 Est GFR (MDRD) Non-Af 83 BUN/Creatinine Ratio 16.0 Glucose 129 H Calcium 8.1 L Triglycerides 156 Cholesterol 126 LDL Cholesterol 65 VLDL Cholesterol 31 HDL Cholesterol 30 L Discharge Diet: Low fat/ Low Cholesterol, 2000 mg Sodium Diet Discharge Activity: Return to Normal Activity, - - start a walking program and work up to 30 minutes 6-7 times a week May resume sexual activity in: 10-14 days Call your doctor if your incision/area has: Continuous Slow Oozing, Sudden Increased Bleeding, Increased Pain/ Swelling, Increased Redness, Foul Smelling Discharge, Swelling at the incision site Call your doctor if you observe: Fever of 101 or Higher, Shortness of breath, Dizziness, Fainting spells, Swelling in the ankles, Chest pain Home Medications: Medications to take at Discharge aspirin 81 mg tablet,delayed release 81 mg PO DAILY 05/19/17 bupropion HCl SR 150 mg tablet,12 hr sustained-release 150 mg PO BID 05/19/17 duloxetine 60 mg capsule,delayed release 60 mg PO QDAY 05/19/17 metoprolol tartrate 25 mg tablet 25 mg PO BID 05/19/17 Levothyroxine Sodium [Synthroid] 137 mcg PO DAILY 05/29/18 clopidogrel 75 mg tablet 75 mg PO DAILY #90 tab 06/07/18 lisinopril 10 mg tablet 10 mg PO DAILY #90 tab 06/07/18 Acetaminophen [Tylenol Tablet] 650 mg PO Q6H PRN PRN tab 08/09/18 Amlodipine [Norvasc] 5 mg PO DAILY #30 tab 08/09/18 Atorvastatin Calcium [Lipitor] 80 mg PO QHS #30 tab 08/09/18 Following Prescrptions Were Given to Patient: Atorvastatin Calcium [Lipitor] 80 mg PO QHS #30 tab Transmission Status: Received by [id number] Amlodipine [Norvasc] 5 mg PO DAILY #30 tab Transmission Status: Received by [id number] Primary Care Physician: Bobby Murillo Chi, MD [Primary Care Provider] - Please follow up with your Primary Care Physician in: 1 week to check the BP Please Follow Up With: Kulwant Thurston MD When: as directed Disposition: Home Minutes spent on discharge:: 35 Patient Condition:: Stable Medical Necessity - Tobacco Use Smoking Status: Current every day smoker Tobacco Use: Cigarettes Meaningful Use Info Meaningful Use Diagnoses (Choose all that apply): None applicable
--- NOTE | 2018-08-11 12:48 | CL.D_ITS ---
Patient Name: EVARISTO HYANES Study Date: 08/08/2018 Performing: Kulwant Thurston MD Ht: 69 inches 174 cm : 1965 Wt: 269.3 lbs 122 kg Age: 53 Gender: male BSA: 2.33 PROCEDURE(S) PERFORMED [id number]/LV [id number] W OR WO PTCA, SINGLE CORONARY ARTERY [id number], EACH ADD'L CORONARY ART, SAME MAJOR CLINICAL PROFILE AND INDICATIONS Indications: Worsening Angina, Stable Known CAD, Suspected CAD Heart Failure: None Stress/Imaging Date: 06/22/2018Stress Test with SPECT MPI: NegativeStress/Image Study Performed: N o Angina Classification Anginal Classification w/in 2 Weeks: CCS III CAD Presentations: Unstable angina. Other: Identical anginal symptoms prior to previous PCI to LA D Stable angina. Comorbidities/Risk Factors: Hypertension Dyslipidemia Prior PCI CONCLUSIONS Coronary artery disease with mid left anterior descending artery stenosis and ostial stenosis in a no ndominant right coronary artery RECOMMENDATIONS Referred for immediate PCI DESCRIPTION OF PROCEDURE The patient arrived to the procedure lab. The risks and benefits of the procedure as well as a full d escription of our services here and current unavailability of surgical backup were fully explained to the patient and/or their significant other prior to the catheterization. The Timeout was completed, verifying the correct patient and procedure. The patient's procedural site was prepped and draped in the usual fashion. Local anesthetic was given subcutaneously to right radial region with Lidocaine 2% . Local anesthetic was given subcutaneously to right groin region with Lidocaine 2%. Using a modified Seldinger technique, arterial access was obtained via the right radial artery, a 6Fr sheath was inse rted., arterial access was obtained via the right femoral artery, a 6Fr sheath was inserted. Right C oronary Artery selective angiography was performed in multiple views using a 5 Fr. 4.0 [place] catheter . Left Coronary Artery selective angiography was performed in multiple views using a 5 Fr. 4.0 [place] catheter. Left Ventriculography was performed in [place] projection using a [address] LV to AO pullback pressures were then recorded.Contrast was injected through the sheath and the Right Iliac and Femoral artery were assessed for possible closure device.The arterial sheath was pull ed and a TR Band was applied for hemostasis. The arterial sheath was pulled and a Mynx closure device was deployed for hemostasis CORONARY ANGIOGRAPHY DOMINANCE: Left Dominant LEFT HEART ASSESSMENT Normal Left Ventricular systolic function LEFT MAIN: Angiographically normal LEFT ANTERIOR DESCENDING ARTERY: PROX LAD: Previously placed stent is patent MID LAD: Previously placed stent is patent, 75 % Stenosis CIRCUMFLEX ARTERY: No significant disease noted RIGHT CORONARY ARTERY: OSTIAL RCA: 70 % Stenosis COMPLICATIONS No Complications PROCEDURE MEDICATIONS Versed 1 mg IV Fentanyl 50 mcg IV Fentanyl 25 mcg IV Fentanyl 25 mcg IV Fentanyl 25 mcg IV Fentanyl 25 mcg IV Fentanyl 25 mcg IV Fentanyl 25 mcg IV Oxygen: 2 L/min via nasal cannula Heparin diluted in 23cc Heparinized saline. Patient given 10cc IA of this solution. 08/08/2018 08:44: 39 Heparin 6000 unit(s) IV 08/08/2018 09:56:49 Nitro 200 mcg IC 08/08/2018 09:58:46 Nitro 200 mcg IC 08/08/2018 09:58:46 Nitro 200 mcg IC 08/08/2018 10:12:21 Nitro 200 mcg IC 08/08/2018 10:17:01 Verapamil 2.5mg, Ntg 100mcgs, 2000 units of Heparin diluted in 23cc Heparinized saline. Patient give n 10cc IA of this solution. 08/08/2018 08:44:39 IV Bolus: .9 NaCl 250 ml total 08/08/2018 09:56:44 IV Fluids: .9 NaCl decreased to 150 ml/hr 08/08/2018 10:30:14 SUMMARY OF HEMODYNAMIC DATA Time AIR REST ECG 08:21:11 AO 126/91 (108) SA 08:46:32 LV 127/26, 36 08:57:18 LV 126/28, 34 08:57:24 LV 120/17, 36 08:58:06 LV 120/16, 35 08:58:12 LVp 121/17, 36 08:58:16 AOp 131/85 (105) 08:58:21 AO 120/74 (93) 09:58:12 Signed By Kulwant Thurston MD On 08/11/2018 12:47:29 Kulwant Thurston MD
== END 2018-08-09 10:44 | disposition home or self-care (01) | DRG 247 ==
LOC: ED 18:00 → PCU 19:08 → ICU 08-08 10:15
PROVIDERS: Internal Medicine Cardiovascular Disease; Specialist; Admitting Provider Internal Medicine; Emergency Provider Emergency Medicine; Family Provider Family Medicine Geriatric Medicine; PCP Family Medicine Geriatric Medicine; Visit Provider Internal Medicine
DX: I25.110 Atherosclerotic heart disease of native coronary artery with unstable angina pectoris (principal); E03.9 Hypothyroidism, unspecified; E66.01 Morbid (severe) obesity due to excess calories; E78.5 Hyperlipidemia, unspecified; I10 Essential (primary) hypertension; F17.210 Nicotine dependence, cigarettes, uncomplicated; F32.9 Major depressive disorder, single episode, unspecified; Z68.39 Body mass index [BMI] 39.0-39.9, adult; Z95.5 Presence of coronary angioplasty implant and graft; Z79.899 Other long term (current) drug therapy; I25.2 Old myocardial infarction
CPT/HCPCS: 36415; 71045; 80048; 80061; 81001; 84484; 85025; 85027; 85347; 85610; 85730; 92921; 92928; 93005; 93458; 99152; 99153; 99285; 99406; C1760; J7030; Q9967; A4216; C1725; C1769; C1887; C1894; C9600

== ENCOUNTER → 2019-02-13 09:59 | Outpatient (CLI) | payer OTHER, SELFPAY ==
[2019-01-10 07:24] VITALS: BMI 38.7
[2019-02-13 10:16] LABS: Potassium 5.4 mmol/L (3.5-5.1)
== END ==
PROVIDERS: Family Provider Family Medicine Geriatric Medicine; PCP Family Medicine Geriatric Medicine; Referring Provider Internal Medicine; Visit Provider Internal Medicine
DX: E87.5 Hyperkalemia (principal)
CPT/HCPCS: 84132

== ENCOUNTER 2019-02-20 09:54 | Observation (INO) | payer OTHER, SELFPAY ==
[2019-01-10 07:24] VITALS: BMI 38.7
[2019-02-20 09:55] VITALS: BP 145/99; PULSE 67; RESP 17; TEMP 36.8; O2SAT 99; BMI 38.5
--- NOTE | 2019-02-20 09:59 | RAD_ITS ---
STUDY: X-RAY CHEST REASON FOR EXAM: Male, 54 years old. Chest pain on and off since yesterday. TECHNIQUE: Single AP portable view of the chest. COMPARISON: 07/06/2018. FINDINGS: Cardiac silhouette unremarkable. Pulmonary vascularity unremarkable. Aorta unremarkable. No focal patchy airspace opacities. No pleural effusions. Minimal atelectasis. Upper abdomen unremarkable. Osseous structures intact. No pneumothorax. RAD/Chest 1 View (Portable) IMPRESSION: No acute cardiopulmonary findings Electronically Signed: Olegario Forbes DO at 10:29 EST Tel , Service support ,
--- NOTE | 2019-02-20 09:59 | EKG12_ITS ---
Test Reason : CP Blood Pressure : / mmHG Vent. Rate : 066 BPM Atrial Rate : 066 BPM P-R Int : 164 ms QRS Dur : 086 ms QT Int : 376 ms P-R-T Axes : 058 061 052 degrees QTc Int : 394 ms Normal sinus rhythm Normal ECG Confirmed by JUDITH ORELLANA, ENRICO ([id number]), film editor supervisor DARCIE PEPPER ([id number]) on 02/23/2019 11:08:25 AM Referred By: Olegario Salinas Confirmed By:ENRICO WONG MD
[2019-02-20 10:11] VITALS: BP 136/101; PULSE 68
[2019-02-20] MEDS: Nitroglycerin Oint 1 INCH PACKET TRANSDERM. (10:11)
[2019-02-20] MEDS: 0.9% Normal Saline 1,000 ML 150 ML IV (10:13)
[2019-02-20 10:14] VITALS: O2SAT 99
[2019-02-20 10:20] LABS: Basophil# 0.07 X10^3/uL; Basophil% 0.7 % (0-1); Eosinophil# 0.47 X10^3/uL; Eosinophils% 4.8 % (0-5); Lymphocyte % 16.3 % (19-41); Mean Corp Hgb Conc 31.9 g/dL (32-36); Mean Corpuscular Hgb 28.9 pg (27.0-32.0); Mean Corpuscular Volume 90.6 fL (80-94); Mean Platelet Vol. 8.7 fl (6.2-12.0); Monocyte# 0.66 X10^3/uL; Monocyte% 6.7 % (0-10); NRBC Flagged by Analyzer 0 % (0-5); Neutrophil # 6.97 X10^3/uL (2.7-7.7); Neutrophil % 71.3 % (47-70); Platelet Count 320 K/mm3 (150-450); RBC Distribution Width CV 13.5 % (11.6-14.6); RBC Distribution Width SD 45.3 fl (35.1-43.9); Red Blood Count 5.19 M/mm3 (4.6-6.2); White Blood Count 9.8 K/mm3 (4.4-11.0)
[2019-02-20 10:35] LABS: Potassium 5.1 mmol/L (3.5-5.1)
[2019-02-20 10:44] LABS: Anion Gap 6 (5-15); BUN 21 mg/dL (7-18); BUN/Creat Ratio 18.8 RATIO (10-20); Calcium,Total 9.1 mg/dL (8.5-10.1); Chloride 107 mmol/L (98-107); Creatinine, Serum 1.12 mg/dL (0.70-1.30); EST Glomerular Filtration Rate 72 mL/min (>60); Est Glom Filt Rate - Afr Amer 88 mL/min (>60); Glucose 106 mg/dL (74-106); Potassium 4.2 mmol/L (3.5-5.1); Sodium Level 139 mmol/L (136-145)
--- NOTE | 2019-02-20 11:48 | ED.VISSUMM ---
- ER Visit Summary Date of Service: 02/20/19 Chief Complaint: [Chest pain] History of Present Illness: The patient is a 54 M [presents the emergency department complaint chest pain that started this morning. Patient described nausea and shortness of breath with it. He had the chest discomfort a couple days ago as well. Patient denies recent travel or surgery. Patient was seen by primary care physician today and EMS was called to bring him to the emergency department. Patient had received 1 nitroglycerin tablet in the office and then the squad also gave him 1. Patient received aspirin. Patient does have history of coronary artery disease with history of hyperkalemia and history of diverticulitis.] Physical Examination: [HEENT-PERRLA, EOMI. Cranial nerves II through XII grossly intact. TMs clear. Mucous membranes moist. No adenopathy. Cardiovascular-regular rate and rhythm without murmur or ectopy Lungs-clear to auscultation, chest wall stable without crepitus or subcu emphysema Abdomen-normoactive bowel sounds, soft, nontender, no rebound or rigidity, no peritoneal signs. Extremities-intact ?4, normal range of motion, normal pulses, atraumatic] Test Results: [EKG obtained arrival shows sinus rhythm with a ventricular rate 66 bpm with no acute segment changes. CBC with differential is normal. Chemistries unremarkable. Troponin less than 0.015. Chest x-ray showed nothing acute.] Emergency Department Course and Treatment: [Placed on burrito maker. Patient had nebulized damage.] Treatment Plan: [Admit] Disposition: [Admit] Impression: [Chest pain-rule out acute coronary syndrome] This note was generated with [employer] dictation software. It may contain incorrect words, spelling, and punctuation that were not noted in review of the chart prior to signing ED Disposition - Plan for ED Patient: Referrals: María Elena Eubanks DO [Primary Care Provider] -
[2019-02-20 12:33] VITALS: BP 132/74; PULSE 59; RESP 16; TEMP 36.6; O2SAT 99
[2019-02-20 12:34] VITALS: PULSE 61
[2019-02-20 12:40] VITALS: BMI 37.0
[2019-02-20 12:46] VITALS: BMI 37.1
--- NOTE | 2019-02-20 12:51 | EKG12_ITS ---
Test Reason : CP ADMISSION Blood Pressure : / mmHG Vent. Rate : 060 BPM Atrial Rate : 060 BPM P-R Int : 166 ms QRS Dur : 086 ms QT Int : 404 ms P-R-T Axes : 053 060 053 degrees QTc Int : 404 ms Normal sinus rhythm Normal ECG Confirmed by JUDITH ORELLANA, ENRICO ([id number]), editor book LILIBETH TRIPP ([id number]) on 02/24/2019 3:36:34 PM Referred By: Olegario Salinas Confirmed By:ENRICO WONG MD
--- NOTE | 2019-02-20 13:37 | HP.PCM_ITS ---
History of Present Illness Date of Admission: 02/20/19 Chief Complaint: chest pain The patient is a 54 year old M presents with midsternal chest pain. Similar to when he has had angina in the past. States he had some chest pain on Wednesday on went to his left shoulder but that resolved spontaneously. Today today, the chest pain was just midsternal and nonradiating. Patient has had some shortness of breath over the past week and some nausea. Presented to the emergency room and his work-up was unremarkable. Patient received nitroglycerin which did alleviate his chest pain. The hospital service was asked to admit the patient for further evaluation. Patient tells me that he stopped taking Plavix due to lack of insurance back in November. [] Past Medical History Past Medical History (Chronic Problems): Chronic Problems (Last Reviewed 01/10/19 @ 10:12 by Kulwant Thurston MD) Atherosclerosis of coronary artery of [place] heart without angina pectoris (Chronic) [id number]-Vdzz LAD w/ 3.0 x 18 mm Resolute and Mid LAD w/ 2.5 x 12 mm Resolute 03/01/2017; PCI-JENNY to MID LAD with a 2.5 x 12 mm Promus Synergy and POBA-D2 08/08/18 History of coronary artery stent placement (Chronic 08/08/18) [id number] LAD w/ 3.0 x 18 mm Resolute and Mid LAD w/ 2.5 x 12 mm Resolute 03/01/2017; PCI-JENNY to MID LAD with a 2.5 x 12 mm Promus Synergy and POBA-D2 08/08/18 Essential (primary) hypertension (Chronic) Pure hypercholesterolemia (Chronic) Nicotine dependence (Chronic) Medical History: Medical History (Last Reviewed 02/20/19 @ 13:40 by Olegario Salinas DO) Atherosclerosis of coronary artery of [place] heart without angina pectoris (Chronic) I25.10 YEL-AES-Omcv LAD w/ 3.0 x 18 mm Resolute and Mid LAD w/ 2.5 x 12 mm Resolute 03/01/2017; PCI-JENNY to MID LAD with a 2.5 x 12 mm Promus Synergy and POBA-D2 08/08/18 Essential (primary) hypertension (Chronic) I10 Pure hypercholesterolemia (Chronic) E78.00 Nicotine dependence (Chronic) F17.200 Anxiety and depression F41.9, F32.9 Chronic depression F32.9 Diverticulitis K57.92 Hypothyroidism E03.9 Migraine G43.909 Obesity E66.9 Segmental and somatic dysfunction of cervical region M99.01 Segmental and somatic dysfunction of lumbar region M99.03 Segmental dysfunction of thoracic region M99.02 Non-ST elevation (NSTEMI) myocardial infarction (Resolved) Onset Date: 02/2017 I21.4 Allergies Sulfa (Sulfonamide Antibiotics) Allergy (Verified 02/20/19 10:19) Other Home Medications: Ambulatory Orders Medication Instructions Recorded aspirin 81 mg tablet,delayed 81 mg PO DAILY 05/19/17 release metoprolol tartrate 25 mg tablet 25 mg PO BID 05/19/17 Levothyroxine Sodium [Synthroid] 137 mcg PO DAILY 05/29/18 Acetaminophen [Tylenol Tablet] 650 mg PO Q6H PRN PRN tab 08/09/18 Rosuvastatin Calcium 10 mg PO QHS 02/20/19 Surgical History: Surgical History (Last Reviewed 02/20/19 @ 13:40 by Olegario Salinas DO) History of coronary artery stent placement (Chronic) Onset Date: 08/08/18 Z95.5 LDQ-FJO-Cvdw LAD w/ 3.0 x 18 mm Resolute and Mid LAD w/ 2.5 x 12 mm Resolute 03/01/2017; PCI-JENNY to MID LAD with a 2.5 x 12 mm Promus Synergy and POBA-D2 History of appendectomy Z90.49 History of colectomy Z90.49 History of tonsillectomy Z90.89 History of uvulopalatopharyngoplasty Z98.890 Removal uvula Status post correction of deviated nasal septum Z98.890 Surgical History: appendectomy, colectomy, tonsillectomy, - - CAD s/p stents, s/p uvulopalatopharyngoplasty Psychiatric History: Depression Smoking Status: Heavy Smoker (>10/day) Tobacco Use: Cigarettes, Vapor - *Family History Maternal Family History: Family History (Last Reviewed 02/20/19 @ 13:40 by Olegario Salinas DO) Father CAD (coronary artery disease) Kidney disease Mother CHF (congestive heart failure) Aortic valve replaced Brother Atrial fibrillation History Items: Heart Disease, - - Hypothyroidism Paternal Family History: Family History (Last Reviewed 02/20/19 @ 13:40 by Olegario Salinas DO) Father CAD (coronary artery disease) Kidney disease Mother CHF (congestive heart failure) Aortic valve replaced Brother Atrial fibrillation History Items: Heart Disease, - - Hypothyroidism Review of Systems Constitutional: Denies: Anorexia, Chills, Fever Eyes: Denies: Blurred vision, Double vision HEENT: Denies: Difficulty Hearing, Difficulty Swallowing Cardiovascular: Reports: Chest Pain. Denies: Edema, Palpitations Respiratory: Reports: Shortness of Breath. Denies: Cough, Sputum production Gastrointestinal: Reports: Nausea. Denies: Abdominal Pain Genitourinary: Denies: Dysuria Musculoskeletal: Denies: Joint Pain, Joint Tenderness Skin: Denies: Rash, Wounds Neurological: Denies: Numbness, Tingling, Focal weakness Psychiatric: Denies: Anxiety, Depression Hematologic/ Lymphatic: Denies: Easy Bruising, Easy Bleeding, Hx of blood clot Comment: All review systems are otherwise negative except for as mentioned above and in HPI. VTE Information - Inpt Only VTE Present on Admission: No VTE Mechan Device Prophylaxis: None VTE Pharm Prophylaxis ordered?: No Reason prophylaxis not ordered:: Procedure Not Indicated - Physical Exam Vitals/I&O's: Vital Signs Temp Pulse Resp BP Pulse Ox 36.6 C 61 16 132/74 H 99 02/20/19 12:33 02/20/19 12:34 02/20/19 12:33 02/20/19 12:33 02/20/19 12:33 Oxygen Delivery Method Room Air Weight: 110.6 kg Body Mass Index (BMI) 37.0 General: Alert, Cooperative, No apparent distress HEENT: Atraumatic, Normocephalic Oral: Moist Mucosa, No Gingival or Mucosal Lesions/ Ulcerations Neck: No Nodes, Trachea Midline Lungs: Clear to auscultation, Normal air movement, No rhonchi, No wheeze, No rales Cardiovascular: Regular rate, Regular Rhythm, Normal S1, Normal S2, No murmurs Abdomen: Bowel Sounds Present, Soft, Non Tender, Non-Distended, No Hepato- splenomegaly Extremities: No edema, No Calf Tenderness Skin: No rashes, No breakdown Musculoskeletal: No Tenderness to Palpation of Joints or Extremities, No Muscle Wasting Neurological: Deep Tendon Reflexes 2+/4 and Symmetrical, - - No clonus Psych/Mental Status: Normal Affect, Appropriate Laboratory Results 02/20/19 08:24: Potassium 5.1 02/20/19 10:10: WBC 9.8, RBC 5.19, Hgb 15.0, Hct 47.0, MCV 90.6, MCH 28.9, MCHC 31.9 L, RDW Std Deviation 45.3 H, RDW Coeff of Bob 13.5, Plt Count 320, MPV 8.7, Immature Gran % (Auto) 0.200, Neut % (Auto) 71.3 H, Lymph % (Auto) 16.3 L, [place] % (Auto) 6.7, Eos % (Auto) 4.8, Baso % (Auto) 0.7, Absolute Neuts (auto) 7.0, Absolute Lymphs (auto) 1.60, Nucleated RBC % 0 02/20/19 10:10: Sodium 139, Potassium 4.2, Chloride 107, Carbon Dioxide 26.0, Anion Gap 6, BUN 21 H, Creatinine 1.12, Estim Creat Clear Calc 72.10, Est GFR (MDRD) Af Amer 88, Est GFR (MDRD) Non-Af 72, BUN/Creatinine Ratio 18.8, Glucose 106, Calcium 9.1, Troponin I < 0.015 Chest x-ray reviewed and showed no acute infiltrate. EKG reviewed and showed normal sinus rhythm without any acute changes. Current Medications Acetaminophen (Tylenol) 650 mg PO Q6H PRN PRN PRN Reason: Mild Pain (0-2/10) Aspirin (Ecotrin) 81 mg PO DAILY [facility] Clopidogrel Bisulfate (Plavix) 75 mg PO DAILY [facility] Dextrose (D50w Syringe) 0 gm IV X1 PRN; Protocol PRN Reason: Hypoglycemia Glucagon () 1 mg IM .X1 PRN PRN Reason: Hypoglycemia Levothyroxine Sodium (Synthroid) 137 mcg PO DAILY [facility] Metoprolol Tartrate (Lopressor (Beta Nicholas)) 25 mg PO BID [facility] Non-Formulary Medication (Rosuvastatin Calcium) 10 mg PO QHS [facility] Ondansetron HCl (Zofran) 4 mg IV Q8H PRN PRN PRN Reason: NAUSEA/VOMITING Oxycodone HCl (Oxyir) 5 mg PO Q4H PRN PRN PRN Reason: Pain Score 4-5/10 Oxycodone HCl (Oxyir) 10 mg PO Q4H PRN PRN PRN Reason: Pain Score 6-10/10 Sodium Chloride () 10 - 40 ml IV UD PRN PRN Reason: SALINE FLUSH Assessment/Plan All Active Problems (Last Reviewed 01/10/19 @ 10:12 by Kulwant Thurston MD) Non-ST elevation (NSTEMI) myocardial infarction (Resolved 02/2017) Unstable angina (Resolved) 1. Unstable angina * Currently chest pain-free with the nitroglycerin * Patient at high risk for in-stent thrombosis given the fact that he had stopped clopidogrel 2 months ago and he still actively smoking * Discussed with Dr. Thurston who will review the patient's data and determine if patient would DNR stress test versus left heart catheterization * Will continue with rosuvastatin, aspirin as he was taking at home and resumed clopidogrel 75 started today. * Cycle troponins and check a fasting lipid panel in the a.m. * Discussed with Dr. Thurston, will plan on doing a stress and make further decisions based on the results of that. 2. Tobacco abuse * Ongoing * When asked why he is still smoking, patient states that gets anxious when he tries to quit and therefore, that is why still smoking * Reemphasized says sure he is heard many times before, that that is his biggest preventable risk factor for his coronary artery disease. 3. VTE prophylaxis: Low risk disease observation status at this time. 4. Advanced care planning: Discussed with the patient. Asked if he would want CPR in event of cardiopulmonary arrest. Patient states that he would not. Therefore the patient is DNR Comfort Care arrest. Code Visit OBSV E&M: 91800 Initial observation care L3
[2019-02-20 13:43] VITALS: O2SAT 95
--- NOTE | 2019-02-20 13:49 | STE_ITS ---
Reason For Study: Chest Pain Stress Results Protocol: Nicho Protocol Maximum Predicted HR: 165 bpm Target HR: 140 bpm % Maximum Predicted HR: 79 % DurationHeart Rate Stage (mm:ss) (bpm) BP Comment Baseline 74 130/706/10 Chest Pain Nicho Protocol Stage I 3:00 87 142/74No Chest Pain Nicho Protocol Stage II 3:00 95 160/72No Chest Pain Nicho Protocol Stage III 3:00 110 156/74No Chest Pain; Mild Dyspnea Nicho Protocol Stage IV 2:00 131 / No Chest Pain; Mild to Moderate Dyspnea Recovery 82 140/78No Chest Pain Stress Duration: 11:00 mm:ss Maximum Stress HR: 131 bpm METS: 13 Baseline Echocardiogram Findings Stress Echo Wall motion Data Resting WM Intermediate WM Stress WM Interpretation Summary Exercise stress echo. 54-year-old man presenting with chest pain. Resting EKG demonstrates normal sinus rhythm with a rate of 59 bpm normal intervals are noted resting blood pressures 130/70 mmHg. The patient exercised according to regular Nicho protocol for a total duration of 11 minutes. Patient completed 2 minutes into stage IV of the Nicho protocol. The maximum heart rate attained was 131 bpm which was 79% of maximum predicted heart rate the maximum workload was 13.7 metabolic equivalents. At rest there were no ST or T wave changes noted suggest ischemia peak exercise upsloping ST changes were noted. The test was terminated due to fatigue no clinical angina was noted no chest pain was noted. The resting blood pressure was 130/70 with a peak blood pressure 160/72 mmHg Stress echocardiographic images. Resting echocardiographic images demonstrated no wall motion abnormalities noted the estimated ejection fraction was 60% at rest. At peak exercise there was thickening of all doyle contraction of left ventricular cavity with no new wall motion abnormalities noted. The estimated ejection fraction was 75%. Conclusion: Normal stress echocardiogram at a high workload with no EKG changes No clinical angina noted Excellent functional capacity. The above is a low risk stress test Ordering Physician: Kulwant Thurston Referring Physician: Olegario Salinas Performed By: Brittany Carrasco, PHILIPPE, RVT
--- NOTE | 2019-02-20 13:50 | CON.PCM_ITS ---
Reason for Consult Date of Consultation: 02/20/19 Reason for Consultation: Chest pain History of Present Illness: The patient is a 54 year old M with a previous medical history of anterior myocardial infarction in February 2017 resulting in a proximal left anterior descending artery stent. He presented in July of this year with chest discomfort underwent a cardiac catheterization which demonstrated moderately severe disease noted in the mid left anterior descending artery for which she underwent angioplasty and stenting as well as plain old balloon angioplasty to a diagonal vessel. He had a nondominant right coronary artery and a dominant circumflex artery with moderate disease noted in the branch of the obtuse marginal vessel. He was seen in December in the office and at that time was compliant with his medications he says that he had a lightening bolt episode of chest discomfort over the weekend which went away it was brief lasting he went to his primary physician's office today related to him and then he started having chest discomfort. He was therefore sent to the emergency room and admitted due to his previous history. It is not clear whether he has been compliant with his clopidogrel since November though during his office visit there was no indication that he was not. He has not had any further chest discomfort no dizziness no diaphoresis no near syncope or syncope. [] Past Medical History Allergies/Adverse Reactions: Allergies Sulfa (Sulfonamide Antibiotics) Allergy (Verified 02/20/19 10:19) Other Home Medications: Ambulatory Orders Medication Instructions Recorded aspirin 81 mg tablet,delayed 81 mg PO DAILY 05/19/17 release metoprolol tartrate 25 mg tablet 25 mg PO BID 05/19/17 Levothyroxine Sodium [Synthroid] 137 mcg PO DAILY 05/29/18 Acetaminophen [Tylenol Tablet] 650 mg PO Q6H PRN PRN tab 08/09/18 Rosuvastatin Calcium 10 mg PO QHS 02/20/19 Past Medical History (Chronic Problems): Chronic Problems (Last Reviewed 02/20/19 @ 13:40 by Olegario Salinas DO) Atherosclerosis of coronary artery of [place] heart without angina pectoris (Chronic) [id number]-[id number]-Sfec LAD w/ 3.0 x 18 mm Resolute and Mid LAD w/ 2.5 x 12 mm Resolute 03/01/2017; PCI-JENNY to MID LAD with a 2.5 x 12 mm Promus Synergy and POBA-D2 08/08/18 History of coronary artery stent placement (Chronic 08/08/18) [id number]-Fhmk LAD w/ 3.0 x 18 mm Resolute and Mid LAD w/ 2.5 x 12 mm Resolute 03/01/2017; PCI-JENNY to MID LAD with a 2.5 x 12 mm Promus Synergy and POBA-D2 08/08/18 Essential (primary) hypertension (Chronic) Pure hypercholesterolemia (Chronic) Nicotine dependence (Chronic) Surgical History: appendectomy, colectomy, tonsillectomy, - - CAD s/p stents, s/p uvulopalatopharyngoplasty Psychiatric History: Depression - *Family History Maternal Family History: Family History (Last Reviewed 02/20/19 @ 13:40 by Olegario Salinas DO) Father CAD (coronary artery disease) Kidney disease Mother CHF (congestive heart failure) Aortic valve replaced Brother Atrial fibrillation History Items: Heart Disease, - - Hypothyroidism Paternal Family History: Family History (Last Reviewed 02/20/19 @ 13:40 by Olegario Salinas DO) Father CAD (coronary artery disease) Kidney disease Mother CHF (congestive heart failure) Aortic valve replaced Brother Atrial fibrillation History Items: Heart Disease, - - Hypothyroidism Smoking Status: Heavy Smoker (>10/day) Tobacco Use: Cigarettes, Vapor Alcohol: None Drugs: None Review of Systems - Review of Systems General: Denies: Fever, Night Sweats, Fatigue HEENT: Denies: Vision Change Cardiovascular: Reports: Chest Discomfort. Denies: Shortness of Breath, Orthopnea, PND, Peripheral Edema, Palpitations, Lightheadedness, Dizziness, Near Syncope, Syncope Respiratory: Denies: Cough, Sputum Production, Hemoptysis Gastrointestinal: Denies: Hematemesis, Hematochezia, Melena Genitourinary: Denies: Dysuria, Hematuria Skin: Denies: Rash Neurological: Denies: Dizziness Psychiatric: Denies: Anxiety Endocrine: Denies: Heat Intolerance Hematologic/ Lymphatic: Denies: Lymph Node Enlargement Objective: Vital Signs Temp Pulse Resp BP Pulse Ox 97.8 F 61 16 132/74 H 95 02/20/19 12:33 02/20/19 12:34 02/20/19 12:33 02/20/19 12:33 02/20/19 13:43 Oxygen Delivery Method Room Air Weight: 243 lb 13.3 oz Body Mass Index (BMI) 37.0 Intake and Output for Last 24 Hours 02/18/19 02/19/19 02/20/19 23:59 23:59 23:59 Intake Total 342.5 / 342.5 Balance 342.5 / 342.5 02/20/19 08:24: Potassium 5.1 02/20/19 10:10: WBC 9.8, RBC 5.19, Hgb 15.0, Hct 47.0, MCV 90.6, MCH 28.9, MCHC 31.9 L, Plt Count 320, MPV 8.7, Immature Gran % (Auto) 0.200, Neut % (Auto) 71.3 H, Lymph % (Auto) 16.3 L, [place] % (Auto) 6.7, Eos % (Auto) 4.8, Baso % (Auto) 0.7, Absolute Neuts (auto) 7.0, Nucleated RBC % 0 02/20/19 10:10: Sodium 139, Potassium 4.2, Chloride 107, Carbon Dioxide 26.0, Anion Gap 6, BUN 21 H, Creatinine 1.12, Est GFR (MDRD) Af Amer 88, Est GFR (MDRD) Non-Af 72, BUN/Creatinine Ratio 18.8, Glucose 106, Calcium 9.1, Troponin I < 0.015 Rhythm: EKG: ECHO: Stress Test: Cardiac Cath: PCI: CT Surgery: Holter monitor: EPS: PPM: CXR: Chest CT Scan: Assessment/Plan 1. Chest pain. Patient does present with chest discomfort which was initially rather atypical. There are no EKG changes and his cardiac enzymes are thus far normal. At this juncture I would recommend that we perform an exercise myocardial perfusion stress test on exercise stress echo. His previous stents that was placed in the mid LAD was a 2.5 x 25 Promus stent. Depending on the findings further recommendations will be made. I did review his previous cardiac catheterization from July of this year and he does have residual disease noted in the circumflex artery which is moderate. He did have at least 3 months of uninterrupted clopidogrel and has been encouraged to continue to take this. 2. Tobacco abuse * He continues to use tobacco products and he has been encouraged to discontinue these. * 3. Risk factor modification * Will continue with aggressive risk factor modification. * * 4. Hypertension * His blood pressure appears to be under good control at this time and I will not recommend we make any changes. * Thank you for allowing me to participate in the care of your patient. Please don't hesitate to call if any issues arise Addendum: Patient underwent exercise stress testing with stress echocardiographic imaging where he exercised 11 minutes without any EKG changes no chest pain and excellent blood pressure response. The stress echocardiographic images did not demonstrate any wall motion abnormalities to suggest ischemia. The above is suggestive of a low risk stress scan. I would recommend discharging the patient for outpatient follow-up. Reinstitute clopidogrel.
[2019-02-20] MEDS: Clopidogrel Bisulfate 75 MG Tablet PO (15:03)
--- NOTE | 2019-02-20 15:40 | DCINST_ITS ---
You will use the following diet at home:: Cardiac Your food should be the consistency of: Regular Your liquids should be the consistency of: Regular/Thin Call your doctor if you observe: Shortness of breath, Chest pain Instructions: Understanding Coronary Artery Disease (CAD), Tips for Quitting Smoking (Cardiovascular), Why Do You Smoke?, Planning to Quit Smoking, Getting Support for Quitting Smoking, Health Effects of Smoking Allergies/Adverse Reactions: Allergies Sulfa (Sulfonamide Antibiotics) Allergy (Verified 02/20/19 10:19) Other Medications to take at Discharge aspirin 81 mg tablet,delayed release 81 mg PO DAILY 05/19/17 metoprolol tartrate 25 mg tablet 25 mg PO BID 05/19/17 Levothyroxine Sodium [Synthroid] 137 mcg PO DAILY 05/29/18 Acetaminophen [Tylenol Tablet] 650 mg PO Q6H PRN PRN tab 08/09/18 Clopidogrel Bisulfate [Plavix] 75 mg PO DAILY #30 tab 02/20/19 Rosuvastatin Calcium 10 mg PO QHS 02/20/19 The following prescriptions were given: Clopidogrel Bisulfate [Plavix] 75 mg PO DAILY #30 tab Transmission Status: Pending to [facility]/pharmacy #[id number] Primary Care Physician: María Elena Eubanks DO [Primary Care Provider] - Within 2 Weeks Test Results: Test results from this visit will be discussed in further detail at your follow- up appointment, if applicable. Please Follow Up With: Kulwant Thurston MD When: 4-6 weeks Proposed Discharge Date: 02/20/19
--- NOTE | 2019-02-20 15:42 | DS.PCM_ITS ---
Discharge Date and Diagnosis Date of Admission: 02/20/19 Date of Discharge: 02/20/19 - Primary Discharge Diagnosis Chest pain, cardiac etiology ruled out, unstable angina ruled out. - Secondary Discharge Diagnosis Chronic Problems (Last Reviewed 02/20/19 @ 13:40 by Olegario Salinas DO) Atherosclerosis of coronary artery of [place] heart without angina pectoris (Chronic) [id number] LAD w/ 3.0 x 18 mm Resolute and Mid LAD w/ 2.5 x 12 mm Resolute 03/01/2017; PCI-JENNY to MID LAD with a 2.5 x 12 mm Promus Synergy and POBA-D2 08/08/18 History of coronary artery stent placement (Chronic 08/08/18) [id number] LAD w/ 3.0 x 18 mm Resolute and Mid LAD w/ 2.5 x 12 mm Resolute 03/01/2017; PCI-JENNY to MID LAD with a 2.5 x 12 mm Promus Synergy and POBA-D2 08/08/18 Essential (primary) hypertension (Chronic) Pure hypercholesterolemia (Chronic) Nicotine dependence (Chronic) Hospital Course and Treatment Imaging Results: 02/20/19 09:59 Chest 1 View (Portable) [RAD] Stat 02/20/19 13:49 Stress Test Echo w/o Contrast [ECHO] Routine Clinical Impression(s) from Imaging Studies Chest X-Ray 02/20/19 09:59 IMPRESSION: No acute cardiopulmonary findings Electronically Signed: Olegario Forbes DO at 10:29 EST Tel , Service support , Kulwant Thurston, cardiology Operations: None Procedures: Stress test Summary of Care Provided: The patient is a 54 year old M presents with chest pain. Chest pain was midsternal similar to when he has had unstable angina in the past. Patient had stents placed in July of this year. Patient had been on clopidogrel up until November. Patient states he just never got it resumed. The concern was for in- stent stenosis given the fact that he had drug-eluting stents placed 6 months ago. Patient was seen by Dr. Thurston, of cardiology, who recommended stress test. Stress test came back normal. He has a recommend patient continue with his clopidogrel. Patient states that he does have insurance now and will be able to afford it. The clopidogrel sent to his pharmacy in [facility]. Stressed importance of continue to take the clopidogrel as he is at risk for in-stent stenosis which could lead to another heart attack or even if he stops it again. Patient also advised to quit smoking as it is his most preventable risk factor for his coronary artery disease. [] - Physical Exam Vitals/I&O's: Vital Signs Temp Pulse Resp BP Pulse Ox 36.6 C 61 16 132/74 H 95 02/20/19 12:33 02/20/19 12:34 02/20/19 12:33 02/20/19 12:33 02/20/19 13:43 Oxygen Delivery Method Room Air Weight: 110.6 kg Body Mass Index (BMI) 37.0 Intake and Output for Last 24 Hours 02/18/19 02/19/19 02/20/19 23:59 23:59 23:59 Intake Total 342.5 / 342.5 Balance 342.5 / 342.5 Laboratory Results 02/20/19 08:24: Potassium 5.1 02/20/19 10:10: WBC 9.8, RBC 5.19, Hgb 15.0, Hct 47.0, MCV 90.6, MCH 28.9, MCHC 31.9 L, RDW Std Deviation 45.3 H, RDW Coeff of Bob 13.5, Plt Count 320, MPV 8.7, Immature Gran % (Auto) 0.200, Neut % (Auto) 71.3 H, Lymph % (Auto) 16.3 L, Sullivan % (Auto) 6.7, Eos % (Auto) 4.8, Baso % (Auto) 0.7, Absolute Neuts (auto) 7.0, Absolute Lymphs (auto) 1.60, Nucleated RBC % 0 02/20/19 10:10: Sodium 139, Potassium 4.2, Chloride 107, Carbon Dioxide 26.0, Anion Gap 6, BUN 21 H, Creatinine 1.12, Estim Creat Clear Calc 72.10, Est GFR (MDRD) Af Amer 88, Est GFR (MDRD) Non-Af 72, BUN/Creatinine Ratio 18.8, Glucose 106, Calcium 9.1, Troponin I < 0.015 02/20/19 13:40: Troponin I < 0.015 Current Medications Acetaminophen (Tylenol) 650 mg PO Q6H PRN PRN PRN Reason: Mild Pain (0-2/10) [facility]) [facility] Atorvastatin Calcium (Lipitor) 20 mg PO QHS [facility] Clopidogrel Bisulfate (Plavix) 75 mg PO DAILY [facility] Last Admin: 02/20/19 15:03 Dose: 75 mg Documented by: Glucagon () 1 mg IM .X1 PRN PRN Reason: Hypoglycemia Dextrose (Dextrose 10%-Water) 250 mls @ 999 mls/hr IV .Q16M PRN; Protocol PRN Reason: HYPOGLYCEMIA Levothyroxine Sodium (Synthroid) 137 mcg PO DAILY@0600 [facility] Metoprolol Tartrate (Lopressor (Beta Nicholas)) 25 mg PO BID [facility] Ondansetron HCl (Zofran) 4 mg IV Q8H PRN PRN PRN Reason: NAUSEA/VOMITING Oxycodone HCl (Oxyir) 5 mg PO Q4H PRN PRN PRN Reason: Pain Score 4-5/10 Oxycodone HCl (Oxyir) 10 mg PO Q4H PRN PRN PRN Reason: Pain Score 6-10/10 Sodium Chloride () 10 - 40 ml IV UD PRN PRN Reason: SALINE FLUSH Discharge Diet: Low fat/ Low Cholesterol Call your doctor if you observe: Shortness of breath, Chest pain Home Medications: Medications to take at Discharge aspirin 81 mg tablet,delayed release 81 mg PO DAILY 05/19/17 metoprolol tartrate 25 mg tablet 25 mg PO BID 05/19/17 Levothyroxine Sodium [Synthroid] 137 mcg PO DAILY 05/29/18 Acetaminophen [Tylenol Tablet] 650 mg PO Q6H PRN PRN tab 08/09/18 Clopidogrel Bisulfate [Plavix] 75 mg PO DAILY #30 tab 02/20/19 Rosuvastatin Calcium 10 mg PO QHS 02/20/19 Following Prescrptions Were Given to Patient: Clopidogrel Bisulfate [Plavix] 75 mg PO DAILY #30 tab Transmission Status: Pending to [facility]/pharmacy #[id number] Primary Care Physician: María Elena Eubanks DO [Primary Care Provider] - Within 2 Weeks Please Follow Up With: Kulwant Thurston MD When: 4-6 weeks Patient Instructions: Tips for Quitting Smoking (Cardiovascular), Why Do You Smoke?, Planning to Quit Smoking, Getting Support for Quitting Smoking, Understanding Coronary Artery Disease (CAD), Health Effects of Smoking Disposition: Home Minutes spent on discharge:: 40 Patient Condition:: Good Medical Necessity - Tobacco Use Smoking Status: Heavy Smoker (>10/day) Tobacco Use: Cigarettes, Vapor Meaningful Use Info Meaningful Use Diagnoses (Choose all that apply): None applicable Code Visit OBSV E&M: 05682 Observ/hosp same date L3
== END 2019-02-20 15:41 | disposition home or self-care (01) ==
LOC: ED 10:19 → PCU 14:22
PROVIDERS: Emergency Provider Emergency Medicine; Family Provider Internal Medicine; PCP Internal Medicine
DX: R07.89 Other chest pain (principal); R06.02 Shortness of breath; I25.10 Atherosclerotic heart disease of native coronary artery without angina pectoris; I10 Essential (primary) hypertension; E78.00 Pure hypercholesterolemia, unspecified; E03.9 Hypothyroidism, unspecified; I25.2 Old myocardial infarction; M99.01 Segmental and somatic dysfunction of cervical region; M99.03 Segmental and somatic dysfunction of lumbar region; E66.9 Obesity, unspecified; F17.210 Nicotine dependence, cigarettes, uncomplicated; Z79.899 Other long term (current) drug therapy; Z79.82 Long term (current) use of aspirin; Z68.37 Body mass index [BMI] 37.0-37.9, adult; Z71.3 Dietary counseling and surveillance; M99.02 Segmental and somatic dysfunction of thoracic region
CPT/HCPCS: 36415; 71045; 80048; 84132; 84484; 85025; 93005; 93017; 93350; 96360; 96361; 99218; 99285; 99406; J7030; A4216; G0378

== ENCOUNTER 2019-03-05 19:20 | Emergency (ER) | payer OTHER, SELFPAY ==
[2019-03-05 19:21] VITALS: BP 182/108; PULSE 72; RESP 14; TEMP 36.6; O2SAT 98; BMI 37.5
[2019-03-05 19:35] VITALS: BP 166/96; PULSE 70; RESP 12; O2SAT 98
--- NOTE | 2019-03-05 19:44 | EKG12_ITS ---
Test Reason : HYPERTENSION Blood Pressure : / mmHG Vent. Rate : 061 BPM Atrial Rate : 061 BPM P-R Int : 162 ms QRS Dur : 090 ms QT Int : 382 ms P-R-T Axes : 052 055 047 degrees QTc Int : 384 ms Normal sinus rhythm Normal ECG Confirmed by DALE ORELLANA, KEVIN ([id number]), publication editor DARCIE PEPPER ([id number]) on 03/07/2019 10:05:52 AM Referred By: SAYDA Confirmed By:KEVIN HUNTER MD
--- NOTE | 2019-03-05 19:45 | CT_ITS ---
INDICATION: Back pain COMPARISON: None. TECHNIQUE: Contiguous axial images were obtained through the abdomen and pelvis after the administration of oral contrast, and intravenous contrast administration. CT scan done according to ALARA (As Low As Reasonably Achievable). CONTRAST: 100 mL of Omnipaque (350 mmol/mL) single-use vial was administered IV with 0 mL discarded. FINDINGS: Lung bases: Clear. Liver: No mass. No intrahepatic biliary dilatation. Gallbladder: No wall thickening. No stones. Common bile duct: Normal caliber. No stones. Spleen: Within normal limits. Pancreas: No mass. No pancreatic fluid collections. Adrenals: No masses. Kidneys: No masses. No hydronephrosis. 2.8 cm left exophytic renal cyst. Lymph nodes: No adenopathy. Stomach, small bowel, and colon: No bowel wall thickening or obstruction. Evidence of prior distal colon surgery. Appendectomy. Peritoneal cavity: No mesenteric stranding or free fluid. Osseous structures/body wall: No acute fracture or destructive lesion. Fat-containing left inguinal hernia. Abdominal aorta: No aneurysm. Diffuse atherosclerosis. Pelvic organs: Normal. CT/CT ANGIO ABD&PEL W/O&W/DYE IMPRESSION: No acute intra-abdominal process. Electronically Signed: Ravin Kessler, at 21:20 EST Tel , Service support ,
--- NOTE | 2019-03-05 19:51 | ED.VISSUMM ---
- ER Visit Summary Date of Service: 03/05/19 Chief Complaint: [Back pain and hypertension] History of Present Illness: The patient is a 54 M [presents to the emergency department complaint of pain in his back that he believes is due to his kidneys. Patient states he has had the pain for week and 1/2 to 2 weeks. He is also noted that over the last week his blood pressures consistently been elevated up to 180/105. Patient denies any chest pain. Patient states that the pain is worse when he tries to have a bowel movement. He denies any injury to his back. He denies any pain rating down his legs. Patient denies pleuritic symptoms. He denies urinary symptoms. He was seen by his primary care physician 4 days ago for the same complaint and has some imaging studies that were ordered for 5 days from today. Patient rates pain a 9 out of 10 currently. He denies any nausea or vomiting. He does have history of coronary artery disease, hypertension, and high cholesterol.] Physical Examination: [HEENT-PERRLA, EOMI. Cranial nerves II through XII grossly intact. TMs clear. Mucous membranes moist. No adenopathy. Cardiovascular-regular rate and rhythm without murmur or ectopy Lungs-clear to auscultation, chest wall stable without crepitus or subcu emphysema Abdomen-normoactive bowel sounds, soft. Patient has some mild diffuse tenderness to palpation. There is no rebound, rigidity, or cranial signs. Back exam-I am unable to reproduce patient's pain with palpation. He has no CVA tenderness on exam. He has no tenderness over the thoracic or lumbar spine. He has negative straight leg raises. Deep tendon reflexes are plus 2 out of 4 bilaterally at the patella and Achilles. Patient has normal 5 extension. Patient has normal sensation to light touch. Extremities-intact ?4, normal range of motion, normal pulses, atraumatic] Test Results: [CBC with differential obtained showed a slightly elevated white blood cell count of 14.3, hemoglobin 16, hematocrit 48, platelets 322. Chemistries show sodium 135, potassium 3.9, chloride 104, CO2 23, glucose 101, BUN 31, creatinine 1.93. LFTs were normal. Lipase normal. Urinalysis was normal. CTA of the abdomen pelvis was essentially normal. The lung bases were normal. Normal blood flow to the kidneys. No aneurysms or dissection of the aorta noted. Bony structures were unremarkable.] Emergency Department Course and Treatment: Patient was medicated with morphine and Zofran followed by a milligram of Dilaudid.] Treatment Plan: [To keep his appointment to have a renal scan to be performed and a CT of his chest in 5 days. I suspect his elevated white blood cell count likely secondary to the cold symptoms patient has which likely is viral.] His blood pressure normalized to 120 systolic while in the department. Disposition: Discharged home in stable condition. [] Impression: [Back pain Hypertension] This note was generated with [employer] dictation software. It may contain incorrect words, spelling, and punctuation that were not noted in review of the chart prior to signing ED Disposition - Plan for ED Patient: Referrals: María Elena Eubanks DO [Primary Care Provider] -
[2019-03-05] MEDS: Morphine 4 MG/ML Syringe IV (20:00)
[2019-03-05] MEDS: 0.9% Normal Saline 1,000 ML 150 ML IV (20:00)
[2019-03-05] MEDS: Ondansetron 4 MG/2 ML Vial IV (20:00)
[2019-03-05 20:06] LABS: Absolute Lymphocyte Count 2.44 X10^3/uL (0.83-4.51); Absolute Neutrophil Count 9.9 X10^3/uL (2.0-7.7); Basophil# 0.08 X10^3/uL; Basophil% 0.6 % (0-1); Eosinophil# 0.69 X10^3/uL; Eosinophils% 4.8 % (0-5); Hematocrit 47.9 % (40-54); Lymphocyte # 2.44 X10^3/ul (4.0); Lymphocyte % 17.1 % (19-41); Mean Corp Hgb Conc 33.4 g/dL (32-36); Mean Corpuscular Hgb 29.6 pg (27.0-32.0); Mean Corpuscular Volume 88.5 fL (80-94); Mean Platelet Vol. 8.9 fl (6.2-12.0); Monocyte# 1.14 X10^3/uL; NRBC Flagged by Analyzer 0 % (0-5); Neutrophil # 9.88 X10^3/uL (2.7-7.7); Neutrophil % 69.1 % (47-70); Platelet Count 322 K/mm3 (150-450); RBC Distribution Width CV 13.2 % (11.6-14.6); RBC Distribution Width SD 42.8 fl (35.1-43.9); Red Blood Count 5.41 M/mm3 (4.6-6.2); White Blood Count 14.3 K/mm3 (4.4-11.0)
[2019-03-05 20:17] LABS: AST(SGOT) 11 U/L (15-37); Alanine Aminotransfer ALT/SGPT 27 U/L (16-61); Albumin, Serum 3.6 g/dL (3.2-5.0); Alkaline Phosphatase 93 U/L (45-117); Anion Gap 8 (5-15); BUN 31 mg/dL (7-18); BUN/Creat Ratio 33.4 RATIO (10-20); Calcium,Total 9.4 mg/dL (8.5-10.1); Chloride 104 mmol/L (98-107); Creatinine, Serum 0.93 mg/dL (0.70-1.30); EST Glomerular Filtration Rate 90 mL/min (>60); Est Glom Filt Rate - Afr Amer 109 mL/min (>60); Estimated Creatinine Clearance 86.83 ml/min; Globulin 3.5 g/dL (2.2-4.2); Glucose 101 mg/dL (74-106); Lipase 118 U/L (73-393); Potassium 3.9 mmol/L (3.5-5.1); Protein, Total 7.1 g/dL (6.4-8.2); Sodium Level 135 mmol/L (136-145)
[2019-03-05 20:36] LABS: Bacteria 0 SEEN /hpf (None Seen); Mucous, Urine 0 SEEN /hpf (<or=2+); Red Blood Cells-Urine 0 SEEN /hpf (0-5)
[2019-03-05 20:39] LABS: Color, Urine Yellow (Yellow); Glucose, Dipstick Normal (Normal); Ketone-Dipstick Negative (Negative); Leukocyte Esterase-Dipstick Negative /ul (Negative); Nitrite-Dipstick Negative (Negative); Occult Blood-Urine Negative /ul (Negative); Protein-Dipstick 30 mg/dl (Negative); Urine Bilirubin Dipstick Negative (Negative); Urine Clarity Sl. Cloudy (Clear); Urine Urobilinogen Normal (Normal)
[2019-03-05 20:53] LABS: Hyaline Cast 0-5 SEEN /lpf (0-5); Squamous Epithelial Cells - UA 0-5 SEEN /hpf (0-5)
[2019-03-05 20:54] LABS: White Blood Cells 0-5 SEEN /hpf (0-5)
[2019-03-05] MEDS: HYDROmorphone 1 MG/ML Syringe IV (21:30)
--- NOTE | 2019-03-05 21:33 | ED.DEP ---
ED Disposition - Plan for ED Patient: Instructions: HYPERTENSION, Established, BACK AND NECK PAIN, General Prescriptions: Oxycodone HCl/Acetaminophen [Percocet 5/325] 1 tab PO Q6H PRN PRN 5 Days #20 tab PRN Reason: Pain Score 4-10/10 Prescription Printed Referrals: María Elena Eubanks DO [Primary Care Provider] - 3-5 Days
[2019-03-05 21:36] VITALS: BP 125/78; PULSE 59; RESP 17; O2SAT 98
== END 2019-03-05 21:56 | disposition home or self-care (01) ==
PROVIDERS: Emergency Provider Emergency Medicine; Family Provider Internal Medicine; PCP Internal Medicine
DX: M54.9 Dorsalgia, unspecified (principal); I10 Essential (primary) hypertension; I25.10 Atherosclerotic heart disease of native coronary artery without angina pectoris; E78.00 Pure hypercholesterolemia, unspecified; Z72.0 Tobacco use
CPT/HCPCS: 74174; 80053; 81001; 83690; 85025; 93005; 96361; 96374; 96375; 99285; J7030; Q9967; A4216; J2405

== ENCOUNTER → 2019-03-06 15:18 | Outpatient (CLI) | payer OTHER, SELFPAY ==
[2019-03-05 19:21] VITALS: BMI 37.5
--- NOTE | 2019-03-06 15:20 | RAD_ITS ---
STUDY: X-RAY - LUMBAR SPINE REASON FOR EXAM: Male, 54 years old. LOW BACK PAIN TECHNIQUE: 4 view(s) of the lumbar spine were obtained. COMPARISON: 06/21/2018 FINDINGS: Normal lumbar lordosis. There is no substantial scoliosis. There is a normal alignment of the vertebrae. Normal vertebral bodies and endplates. Normal disc space heights. There is no demonstrated fracture. There is atherosclerotic calcification of the abdominal aorta without a demonstrated aneurysm. RAD/L/S Spine Min 4 Views IMPRESSION: Normal x-ray examination of the lumbar spine. Electronically Signed: Dallin Vigil MD at 0:00 EST , Service support ,
== END ==
LOC: HPRAD 15:19
PROVIDERS: Family Provider Internal Medicine; PCP Internal Medicine; Referring Provider Nurse Practitioner; Visit Provider Nurse Practitioner
DX: M54.9 Dorsalgia, unspecified (principal)
CPT/HCPCS: 72110

== ENCOUNTER → 2019-03-10 07:59 | Outpatient (CLI) | payer OTHER, SELFPAY ==
[2019-02-20 12:40] VITALS: BMI 37.0
[2019-03-05 19:21] VITALS: BMI 37.5
--- NOTE | 2019-03-10 08:05 | CT_ITS ---
STUDY: LOW DOSE CT LUNG CANCER SCREENING REASON FOR EXAM: Male, 54 years old. PT STATED 40YEAR 1PPD SMOKER, HX OF HEART STENTS RADIATION DOSAGE (If Supplied By Facility): CTDIvol = ( 4.02 ) mGy, DLP = ( 149.99 ) mGycm TECHNIQUE: No contrast was administered. Low dose technique was utilized (average mAS-38 and kVp 120). 1.25 mm axial source images with a slice interval of 1.25-mm were reconstructed in lung windows. 2.5 mm axial source images with a slice interval of 2.5-mm were reconstructed in lung windows. 5.0 mm axial source images with a slice interval of 5.0-mm were reconstructed in soft tissue windows. Nodule measured using lung windows on PACS and/or independent workstation with automated measurement of minimum and maximum diameter. Nodule measurement reported as average diameter rounded to the nearest whole number. Growth is defined as an increase ins size of greater than 1.5 mm. COMPARISON: None. NODULES: Total lung nodules (excluding granulomas): 0 Emphysema: No significant emphysema. Endobronchial lesion: None Aorta: Normal Coronary arteries: Coronary artery calcifications. Heart: Normal. Pulmonary artery: Normal. Mediastinal nodes: Normal. Other chest and abdominal findings: None CT/Low Dose CT Lung Screening IMPRESSION: No significant pulmonary nodules. Coronary artery calcifications. LRADS 1. IMPORTANT NOTES FOR USE: ACR Lung-RADS Version 1.0 Assessment Categories Release Date: June 19, 2013 Category: Coded 0-4 bases on nodule(s) with highest degree of suspicion. Negative screen is defined as categories 1 and 2; a positive screen is defined as categories 3 and 4. Category 3 and 4A nodules that are unchanged on interval CT should be coded as category 2, and individuals returned to screening in 12 months. Category 4X: Category 3 or 4 nodules with additional imaging findings that increase the suspicion of lung cancer, such as spiculation, GGN that doubles in size in 1 year, enlarged lymph notes, etc. Category Modifiers: S (significant finding unrelated to lung cancer) and C (prior history of treated lung cancer) may be added to the 0-4 Lung-RADS Electronically Signed: Steven Parr, at 20:23 EST Tel , Service support ,
--- NOTE | 2019-03-10 08:22 | RDU_ITS ---
Reason For Study: Renal Artery Stenosis Right Renal Artery Left Renal Artery Right renal artery ostium 155/41 Left renal artery ostium 145/37 RSV/EDV. PSV/EDV. Right renal artery proximal 155/39 Left renal artery proximal PSV/EDV PSV/EDV. 127/41 . Right renal artery mid 140/41 Left renal artery mid 129/49 PSV/EDV. PSV/EDV . Right renal artery distal 166/46 Left renal artery distal 110/33 PSV/EDV. PSV/EDV. Right RAR 1.91. Left RAR 1.67. Right Renal Parenchyma Left Renal Parenchyma Upper Pole Medula 32/13 PSV/EDV. Left upper pole medulla 32/12 Right upper pole medulla EDR 0.41 . PSV/EDV . Right upper pole medulla R.I. Left upper pole medulla EDR 0.38 . 0.60 . Left upper pole medulla R.I. 0.63 . Upper Pop Cortx 29/12 PSV/EDV. UP Cortex 23/8 PSV/EDV. Right upper pole cortex EDR 0.41 . Left upper pole cortex EDR 0.35 . Right upper pole cortex R.I. 0.58 . Left upper pole cortex R.I. 0.66 . Right lower Pole medulla 36/12 Left lower Pole medulla 29/12 PSV/EDV . PSV/EDV . Right lower pole medulla EDR 0.33 . Left lower pole medulla EDR 0.41 . Right lower pole medulla R.I. Left lower pole medulla R.I. 0.58 . 0.66 . Lower Pole Cortx 24/11 PSV/EDV. Lower Pole Cortex 20/10 PSV/EDV. Left lower pole cortex EDR 0.46 . Right lower pole cortex EDR 0.50 . Left lower pole cortex R.I. 0.56 . Right lower pole cortex R.I. 0.49 . Left Renal Hilar Right Renal Hilar LT Hilar avg 49/14 PSV/EDV . Right Hilar avg 104/30 PSV/EDV. Left hilar acceleration time 60 Right hilar acceleration time 50 m/sec. m/sec. Left Renal Dimensions Right Renal Dimensions Left kidney size 12.63 cm . Right kidney size 12.37 cm . Left cortical dimension 2.14 cm . Right cortical dimension 2.03 cm . Hypoechoic, non vascular structure noted on Lt kidney measuring 2.20cm x 2.86cm. Aorta Proximal abdominal aorta 2.55cm x 2.32 cm . Proximal abdominal aorta peak systolic velocity is 87 cm/sec . Distal abdominal aorta 1.51cm x 1.51 cm . Distal abdominal aorta peak systolic velocity is 83 cm/sec . Interpretation Summary Proximal abdominal aorta measures 2.55 x 2.32 cm with a normal velocity of 87 cm/s Less than 60% stenosis right renal artery Less than 60% stenosis left renal artery Normal right kidney size of 12.37 cm abnormal left kidney size of 12.63 cm Hypoechoic nonvascular probable cyst left kidney measuring 2.2 x 2.86 cm. Clinical correlation would be indicated Ordering Physician: Lupis Rincon Referring Physician: Lupis Rincon Performed By: Brittany Carrasco, PHILIPPE, RVT
== END ==
PROVIDERS: Family Provider Internal Medicine; PCP Internal Medicine; Referring Provider Nurse Practitioner; Visit Provider Nurse Practitioner
DX: I10 Essential (primary) hypertension (principal); F17.210 Nicotine dependence, cigarettes, uncomplicated
CPT/HCPCS: 93975; G0297

== ENCOUNTER 2019-06-27 20:16 | Emergency (ER) | payer SELFPAY ==
[2019-06-27 20:16] VITALS: PULSE 103; RESP 18; O2SAT 95
[2019-06-27 20:17] VITALS: BP 187/115; PULSE 104; RESP 18; TEMP 36.9; O2SAT 96; BMI 38.7
--- NOTE | 2019-06-27 21:40 | RAD_ITS ---
STUDY: X-RAY - LEFT KNEE REASON FOR EXAM: Male, 54 years old. Pain TECHNIQUE: 3 view(s) of the knee. COMPARISON: None. FINDINGS: There is no evidence of fracture or dislocation. There is a moderate joint effusion. There are no radiodense foreign bodies. RAD/Knee 3 Views IMPRESSION: No fracture or dislocation the left knee. Moderate joint effusion. Electronically Signed: Hasmukh Cheek, at 21:51 EDT Tel , Service support ,
[2019-06-27] MEDS: oxyCODONE 5 MG Tablet PO (21:43)
--- NOTE | 2019-06-27 22:58 | ED.DCSUM_ITS ---
History of Present Illness Chief Complaint: Lower Extremity Injury Informant: Patient Occurred: Days Onset: Days Context: Gradual Onset Timing: Continuous Quality of Pain: Aching, Throbbing Narrative: Patient is a 54-year-old male presenting with worsening left knee pain. Patient denies any injury. 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 He states it started causing pain Wednesday afternoon. It is been significantly painful since. He is taken Tylenol and Aleve with no significant relief of the symptoms. He states is aching and throbbing and feels like a migraine in his knee. He states he cannot walk anymore and is not sleeping because of the pain. This is why he came to the emergency room. He denies any prior history of arthritis or issues with this knee in the past. He denies any other complaints at this time including numbness, tingling or weakness of the leg. He denies any buckling or instability of the leg. Past Medical History - Allergies and Home Meds Allergies/Adverse Reactions: Allergies Sulfa (Sulfonamide Antibiotics) Allergy (Verified 06/27/19 20:16) Other Primary Care Physician: Eddie Antoine DO [STAFF PHYSICIAN] - María Elena Eubanks DO [Primary Care Provider] - Past Medical History: - - Coronary artery disease, hypertension, hyperlipidemia Surgical History: appendectomy, colectomy, tonsillectomy, - - CAD s/p stents, s/p uvulopalatopharyngoplasty Smoking Status: Current every day smoker - Family History Maternal Family History: Family History (Last Reviewed 02/20/19 @ 13:[address] Olegario Salinas DO) Father CAD (coronary artery disease) Kidney disease Mother CHF (congestive heart failure) Aortic valve replaced Brother Atrial fibrillation Family History: Reports: Heart Disease, - - Hypothyroidism Paternal Family History: Family History (Last Reviewed 02/20/19 @ 13:[address] Olegario Salinas DO) Father CAD (coronary artery disease) Kidney disease Mother CHF (congestive heart failure) Aortic valve replaced Brother Atrial fibrillation Family History: Reports: Heart Disease, - - Hypothyroidism Review of Systems General: Denies: Chills, Fever, Sweats Eyes: Denies: Visual changes - bilaterally, Diplopia ENT: Denies: Rhinorrhea, Sore throat Cardiovascular: Denies: Chest pain, Palpitations Respiratory: Denies: Dyspnea, Cough, Dyspnea on exertion Gastrointestinal: Denies: Abdominal pain, Nausea, Vomiting, Diarrhea, Melena, Hematochezia Genitourinary: Denies: Dysuria, Hematuria, Frequency Musculoskeletal: Reports: Swelling - Left knee, Extremity Pain - Left knee. Denies: Back pain Skin: Denies: Rash, Wounds Neurological: Denies: Headache, Weakness, Numbness Physical Exam Vital Signs/Narrative: Vital Signs Temp Pulse Resp BP Pulse Ox 06/27/19 20:17 98.4 F 104 H 18 187/115 H 96 06/27/19 20:16 103 H 18 95 Inital Vital Signs reviewed: Yes - Extremity Exam Left Hip: Negative for: Deformity, Edema, Limited ROM Left Femur: - - Normal leg rise, no weakness of the quadricep tendons noted. Negative for: Deformity, Edema, Limited ROM Right Knee: Negative for: Deformity, Edema, Limited ROM Left Knee: Edema, - - No short arc range of motion pain, pain with medial ligament stress, negative anterior posterior drawer sign. No obvious bursitis on exam. No overlying erythema or warmth.. Negative for: Deformity, Limited ROM General: Well nourished, Well developed, Obese Head: Normocephalic, Atraumatic Eyes: Perrl, EOMI ENT: No Trauma, Moist Mucous Membranes Neck: Nontender, Full ROM Cardiovascular: Regular rate, Regular rhythm, No murmurs, - - 2+ bilateral DP pulses Respiratory: No distress, CTA bilaterally, Chest nontender Abdomen: Soft, Nontender Back: Nontender Skin: Normal color, No rash Neurological: Alert, Oriented x3, Cranial nerves II-XII grossly intact, Normal Strength, Normal Sensation Psychological: Normal affect Diagnostic/Tx/Re-eval Clinical Impression(s) from Imaging Studies Knee X-Ray 06/27/19 21:40 IMPRESSION: No fracture or dislocation the left knee. Moderate joint effusion. Electronically Signed: Hasmukh Cheek, at 21:51 EDT Tel , Service support , - Medical Decision Making Patient is evaluated for 3 days of left knee pain and swelling. No injury. No obvious deformity but does have a joint effusion. No associated warmth or overlying erythema. Do not suspect cellulitis or septic joint. Patient does have significant pain with medial stress of the knee. Is possible he could have a ligamentous or meniscal injury. He does not have any associated calf swelling or cardiovascular symptoms. I do not suspect DVT at this time. X-ray does not show any significant arthritis. Patient is referred to orthopedics on-call for follow-up. He is given a dose of oxycodone in the emergency room as well as Kenalog IM. He will be discharged home with a course of Motrin as well as a short course of Percocet for breakthrough pain. He is given an Sascha wrap in the emergency room as he does have an effusion. Patient is counseled on signs and symptoms requiring return to the emergency room. Patient verbalizes agreement and understand this plan. Patient discharged home in stable and improved condition. ED Disposition - Plan for ED Patient: Disposition: Home or Assisted Living Diagnosis: Effusion, left knee, Left knee pain Instructions: ED Knee Pain UKO, ED Effusion Knee Prescriptions: Ibuprofen [Motrin] 800 mg PO TID PRN PRN #20 tab PRN Reason: Pain/Inflammation Transmission Status: Received by [id number] Oxycodone HCl/Acetaminophen [Percocet 5/325] 1 tab PO Q6H PRN PRN 2 Days #8 tab PRN Reason: Pain Score 6-10/10 Prescription Printed Referrals: María Elena Eubanks DO [Primary Care Provider] - Eddie Antoine DO [STAFF PHYSICIAN] - Additional Instructions: Not have significant arthritis in your knee. You do have swelling in the knee. You need to be evaluated further by an orthopedist. Wrap your leg and keep it elevated as much as possible. Return if you develop fever, redness at the knee or worsening symptoms.
[2019-06-27] MEDS: Triamcinolone Acetonide 40 MG/ML Vial IM (23:22)
== END 2019-06-27 23:51 | disposition home or self-care (01) ==
PROVIDERS: Emergency Provider Emergency Medicine; PCP Internal Medicine
DX: M25.462 Effusion, left knee (principal); M25.562 Pain in left knee; E78.5 Hyperlipidemia, unspecified; I10 Essential (primary) hypertension; I25.10 Atherosclerotic heart disease of native coronary artery without angina pectoris; F17.200 Nicotine dependence, unspecified, uncomplicated; Z82.49 Family history of ischemic heart disease and other diseases of the circulatory system; Z88.2 Allergy status to sulfonamides; Z90.49 Acquired absence of other specified parts of digestive tract; Z95.5 Presence of coronary angioplasty implant and graft
CPT/HCPCS: 73562; 96372; 99282

== ENCOUNTER → 2019-06-30 11:02 | Outpatient (CLI) | payer SELFPAY ==
[2019-06-30 10:47] VITALS: BMI 38.7
--- NOTE | 2019-06-30 11:03 | RAD_ITS ---
STUDY: X-RAY - LEFT KNEE REASON FOR EXAM: Male, 54 years old. [place] view only, patient had 3 view knee xray done 3 days ago TECHNIQUE: [place] view(s) of the knee. COMPARISON: None. FINDINGS: Normal patellofemoral articulation. The soft tissue structures are unremarkable. RAD/Knee 1 or 2 Views IMPRESSION: Normal x-ray examination of the knee. Electronically Signed: Holger Enriquez, at 12:27 EDT , Service support ,
== END ==
PROVIDERS: PCP Internal Medicine; Referring Provider Orthopaedic Surgery; Visit Provider Orthopaedic Surgery
DX: M25.562 Pain in left knee (principal)
CPT/HCPCS: 73560

== ENCOUNTER 2019-09-11 17:28 | Emergency (ER) | payer BC, SELFPAY ==
[2019-06-30 10:47] VITALS: BMI 38.7
[2019-09-11 17:29] VITALS: BP 205/111; PULSE 107; RESP 16; TEMP 36.6; O2SAT 94; BMI 39.2
[2019-09-11 17:34] VITALS: BP 194/112; PULSE 103; RESP 18; O2SAT 100
--- NOTE | 2019-09-11 17:41 | EKG12_ITS ---
Test Reason : ILLNESS Blood Pressure : / mmHG Vent. Rate : 097 BPM Atrial Rate : 097 BPM P-R Int : 152 ms QRS Dur : 088 ms QT Int : 344 ms P-R-T Axes : 049 084 054 degrees QTc Int : 436 ms Normal sinus rhythm Normal ECG Confirmed by EMIL NEUMANN ([id number]), editor city DARCIE PEPPER ([id number]) on 09/14/2019 2:51:39 PM Referred By: KARLO Confirmed By:EMIL NEUMANN
--- NOTE | 2019-09-11 17:42 | ED.VISSUMM ---
- ER Visit Summary Date of Service: 09/11/19 Chief Complaint: Decreased smell, taste, chills and mild shortness of breath. She is also complaining of a headache and is on Plavix. History of Present Illness: The patient is a 54 M 3 of CAD, VT, 3 cardiac stents, hypertension, high cholesterol, anxiety depression and hypothyroidism. Patient states that today he has had chills with decreased smell and taste. And mild shortness of breath. No chest pain. No hemoptysis. No fever. No cough. No leg pain or swelling. He has no known exposure to anyone with COVID. Physical Examination: Middle-aged male vital signs stable. Initial blood pressure elevated 205/111. Pulse ox 94% on room air no hypoxia. Patient is a smoker. About a pack a day. H EENT exam unremarkable. Neck nontender no JVD no lymphadenopathy. Lungs clear to auscultation bilaterally. Heart regular rhythm rate about 100 no murmur. Abdomen soft nontender normal bowel sounds no peritoneal signs. Moving all 4 extremities. Calves are nontender without edema or cords. Neurologically patient is awake alert with no focal motor deficits. Test Results: CBC shows an elevated white count of 14,400. Hemoglobin of 15. No bands chemistries unremarkable gap of 4 creatinine of 1. Troponin normal lactate normal at 0.8. EKG normal sinus rhythm rate of 97 no acute changes. No signs of VT or ischemia. Chest x-ray is concerning for right lower lobe infiltrate that would be consistent for suspected COVID-19 this was read both by the radiologist and myself. This is a portable [address] of the brain showed no acute abnormality. Patient's COVID swab is negative. He and I discussed that. Clinically with his symptoms and his chest x-ray I am concerned he does have COVID-19 even with a negative test result. Emergency Department Course and Treatment: Patient had symptoms that may be consistent with COVID-19. He will be worked up for shortness of breath including EKG labs and chest x-ray. Along with a COVID swab. He did with p.o. Tylenol for his headache. And Decadron. Repeat exam patient is doing well at 21:35 PM. He will be given several days off work. He knows return if feeling worse. Nurses walked the patient and his sats remained in the mid 90s and is doing well. I do not think he needs any criteria at this time for admission he knows that if he gets worse to return. Treatment Plan: Decadron daily for 3 days. Return if worse. Follow-up with his doctor. Disposition: Discharge Impression: Acute dyspnea secondary to COVID 19 infection History of CAD with stents This note was generated with [employer] dictation software. It may contain incorrect words, spelling, and punctuation that were not noted in review of the chart prior to signing ED Disposition - Plan for ED Patient: Disposition: Home or Assisted Living Prescriptions: Dexamethasone [Decadron] 6 mg PO DAILY 5 Days tab Prescription Printed Referrals: María Elena Eubanks DO [Primary Care Provider] - 3-5 Days Additional Instructions: As for suspect you have COVID-19 infection. Your COVID test was negative but your chest x-ray has findings that could be an early COVID infection in your lung. Follow-up with your doctor to ensure you are improving. Emergency department if you are feeling a lot more short of breath or feeling a lot worse. At this time he did not need to be admitted to the hospital. Sometimes people worsen and they do need to return and get admitted. Decadron once a day which is a steroid which should help with any lung inflammation.
[2019-09-11 18:13] LABS: Absolute Lymphocyte Count 2.09 X10^3/uL (0.83-4.51); Absolute Neutrophil Count 10.9 X10^3/uL (2.0-7.7); Basophil# 0.08 X10^3/uL; Basophil% 0.6 % (0-1); Eosinophil# 0.45 X10^3/uL; Eosinophils% 3.1 % (0-5); Hematocrit 46.3 % (40-54); Hemoglobin 15.7 g/dL (13.0-16.5); Lymphocyte # 2.09 X10^3/ul (4.0); Lymphocyte % 14.5 % (19-41); Mean Corp Hgb Conc 33.9 g/dL (32-36); Mean Corpuscular Hgb 30.8 pg (27.0-32.0); Mean Platelet Vol. 8.8 fl (6.2-12.0); Monocyte% 5.6 % (0-10); NRBC Flagged by Analyzer 0 % (0-5); Neutrophil # 10.92 X10^3/uL (2.7-7.7); Neutrophil % 75.9 % (47-70); Platelet Count 303 K/mm3 (150-450); RBC Distribution Width CV 14.1 % (11.6-14.6); RBC Distribution Width SD 46.8 fl (35.1-43.9); Red Blood Count 5.09 M/mm3 (4.6-6.2); White Blood Count 14.4 K/mm3 (4.4-11.0)
[2019-09-11 18:25] LABS: Anion Gap 4 (5-15); BUN 21 mg/dL (7-18); BUN/Creat Ratio 19.4 RATIO (10-20); Calcium,Total 8.6 mg/dL (8.5-10.1); Chloride 107 mmol/L (98-107); Creatinine, Serum 1.08 mg/dL (0.70-1.30); EST Glomerular Filtration Rate 75 mL/min (>60); Est Glom Filt Rate - Afr Amer 91 mL/min (>60); Estimated Creatinine Clearance 74.77 ml/min; Glucose 138 mg/dL (74-106); Potassium 3.4 mmol/L (3.5-5.1); Sodium Level 141 mmol/L (136-145)
--- NOTE | 2019-09-11 18:25 | RAD_ITS ---
STUDY: X-RAY CHEST REASON FOR EXAM: Male, 54 years old. cough, SOB, lost of taste and smell, headache TECHNIQUE: AP portable COMPARISON: February 20, 2019 FINDINGS: There are multifocal areas of interstitial prominence most pronounced in the lower lobes. There is no demonstrated pleural abnormality. Normal size heart. Normal mediastinum and ophelia. Normal visualized pulmonary arteries. Normal visualized aortic arch and descending thoracic aorta. Normal visualized thoracic spine. Normal visualized ribs, clavicles, and shoulders. There is no demonstrated abnormality of the visualized soft tissue structures of the upper abdomen. RAD/Chest 1 View (Portable) IMPRESSION: Findings suspicious for early changes of Covid 19 pneumonia. Clinical correlation recommended Electronically Signed: Steven Wolff MD at 19:27 EDT , Service support ,
[2019-09-11 18:34] LABS: Lactic Acid 0.8 mmol/L (0.4-1.9)
--- NOTE | 2019-09-11 19:48 | CT_ITS ---
STUDY: CT BRAIN WITHOUT CONTRAST REASON FOR EXAM: Male, 54 years old. HEADACHE ON PLAVIX SUDDEN ONSET TODAY BEHIND EYES. Hx of AL and HTN RADIATION DOSAGE (If Supplied By Facility): CTDIvol = ( 44.99 ) mGy, DLP = ( 863.60 ) mGycm TECHNIQUE: Transaxial CT imaging of the brain was performed without administration of intravenous contrast material. Individualized dose optimization techniques were used for this CT. COMPARISON: No relevant priors. FINDINGS: Normal soft tissue structures. Normal calvarium. Normal size ventricles and extra-axial spaces for the patient''s age. Mild nonspecific periventricular white matter ischemic changes.. Normal basal ganglia and thalami. Normal brainstem. Normal cerebellum. Empty sella deformity of uncertain clinical significance. There is no intracranial hemorrhage. There are no findings of an acute ischemic infarction. Mild mucosal thickening of the ethmoid air cells bilaterally CT/Brain/Head without Contrast IMPRESSION: Mild nonspecific periventricular white matter ischemic changes. No evidence for acute bleed. Empty sella deformity of uncertain significance although may be seen with pseudotumor cerebri. Clinical correlation recommended Electronically Signed: Steven Wolff MD at 20:30 EDT , Service support ,
[2019-09-11] MEDS: Acetaminophen 500 MG Tablet 1000 MG PO (20:07)
[2019-09-11] MEDS: dexAMETHasone 10 MG/ML Vial IV (20:07)
[2019-09-11 20:09] VITALS: BP 175/119; PULSE 87; RESP 16; O2SAT 93
[2019-09-11 21:42] VITALS: BP 177/121; PULSE 75; RESP 16; O2SAT 95
--- NOTE | 2019-09-11 21:42 | ED.DEP ---
ED Disposition - Plan for ED Patient: Disposition: Home or Assisted Living Prescriptions: Dexamethasone [Decadron] 6 mg PO DAILY 5 Days tab Prescription Printed Referrals: María Elena Eubanks DO [Primary Care Provider] - 3-5 Days Additional Instructions: As for suspect you have COVID-19 infection. Your COVID test was negative but your chest x-ray has findings that could be an early COVID infection in your lung. Follow-up with your doctor to ensure you are improving. Emergency department if you are feeling a lot more short of breath or feeling a lot worse. At this time he did not need to be admitted to the hospital. Sometimes people worsen and they do need to return and get admitted. Decadron once a day which is a steroid which should help with any lung inflammation.
[2019-09-11 22:00] VITALS: BP 177/121; PULSE 75; RESP 16; O2SAT 95
== END 2019-09-11 22:46 | disposition home or self-care (01) ==
PROVIDERS: Emergency Provider Emergency Medicine; PCP Internal Medicine
DX: U07.1 COVID-19 (principal); I25.10 Atherosclerotic heart disease of native coronary artery without angina pectoris; Z95.5 Presence of coronary angioplasty implant and graft; I25.2 Old myocardial infarction; I10 Essential (primary) hypertension; E78.00 Pure hypercholesterolemia, unspecified; Z72.0 Tobacco use; Z79.02 Long term (current) use of antithrombotics/antiplatelets; E03.9 Hypothyroidism, unspecified; F32.9 Major depressive disorder, single episode, unspecified
CPT/HCPCS: 70450; 71045; 80048; 83605; 84484; 85025; 87635; 93005; 96374; 99284; G2023; A4216; U0003

== ENCOUNTER 2019-10-29 19:08 | Inpatient (IN) | payer BC, SELFPAY ==
[2019-10-29] VITALS (8 sets, daily range): BP systolic 140–197; BP diastolic 78–114; PULSE 78–95; RESP 15–18; TEMP 36.4–37.2; O2SAT 93–96; BMI 38.0; BMI 38.7
--- NOTE | 2019-10-29 19:28 | CT_ITS ---
STUDY: CT BRAIN WITHOUT CONTRAST REASON FOR EXAM: Male, 54 years old. Right-sided headache, sinus pressure right side swelling RADIATION DOSAGE (If Supplied By Facility): CTDIvol = ( 44.99 ) mGy, DLP = ( 846.73 ) mGycm TECHNIQUE: Transaxial CT imaging of the brain was performed without administration of intravenous contrast material. Individualized dose optimization techniques were used for this CT. COMPARISON: September 11 2019 FINDINGS: Brain parenchyma is without focal lesions, mass effect, acute intracranial hemorrhage, extra parenchymal fluid collections, hydrocephalus or herniation. There is mild deep white matter hypodensity. Sella turcica is enlarged and has an empty appearance with the pituitary gland flattened along the floor of the sella. The skull is intact. Appearance is stable since prior. CT/Brain/Head without Contrast IMPRESSION: 1. No acute findings. 2. Probable intracranial hypertension/pseudotumor cerebri. Ophthalmology and neurology referral are advised. Electronically Signed: Jalil Vicente, at 20:02 EDT Tel , Service support ,
--- NOTE | 2019-10-29 19:28 | CT_ITS ---
STUDY: CT FACIAL BONES WITHOUT CONTRAST REASON FOR EXAM: Male, 54 years old. Right-sided headache and sinus pressure for one week, right IJ lower lid swelling RADIATION DOSAGE (If Supplied By Facility): CTDIvol = ( 29.38 ) mGy, DLP = ( 547.46 ) mGycm TECHNIQUE: The patient was scanned in a multi detector CT scanner. Sagittal and coronal images were reconstructed. Individualized dose optimization techniques were used for this CT. COMPARISON: None. FINDINGS: Skull base is intact. Facial bones are intact. Orbits are normal. Paranasal sinuses are clear. Soft tissues of the face are unremarkable. Upper airway is patent. CT/Sinus/Facial Bone IMPRESSION: 1. Normal paranasal sinuses without acute or chronic illness. Electronically Signed: Jalil Vicente, at 20:04 EDT Tel , Service support ,
--- NOTE | 2019-10-29 19:29 | ED.DCSUM_ITS ---
History of Present Illness Chief Complaint: Headache Informant: Patient Onset: Days - 08-29 Context: Gradual, Onset Location: right retroorbital, temporal, parietal, radiates to R occipital Current Severity: Moderate Maximum Severity: Severe Worsened by: nothing in particular Relieved by: nothing Associated Symptoms: Nausea - once earlier today only, Blurred Vision - mainly in right eye, along w/ spasm/squinting R eye only, - - vibration sensation in right maxillary teeth. Negative for: Fever, Vomiting, Sore Throat, Tingling, Photophobia, Visual Loss Injury: - - no injury Narrative: Patient states he has had headaches and discomfort like this with sinus infecti ons in the past, but nothing this severe. He used to have frequent sinus infections, he then had septoplasty and then he stopped having them. About 2 weeks ago he had an upper respiratory illness that he thought was COVID-19, he was tested twice and they were negative both times, he was placed on a Z-Aki by his doctor he ended up getting over to the symptoms. The current symptoms started about 1 week ago, he was seen within 1 or 2 days of the onset and placed on Augmentin which she is still on and he has noticed no improvement. He is not having a lot of congestion, but when his nose does run it is clear and only coming out the left side, not the right although he is able to move air through the right side without any difficulty. He does feel pressure in his mid face area. No fevers or chills or other systemic symptoms. No neurologic symptoms other than the occasional blurry vision in his right eye. - Past Medical History (1) Atherosclerosis of coronary artery of [place] heart without angina pectoris Status: Chronic Comment: NYJ-WOZ-Eiry LAD w/ 3.0 x 18 mm Resolute and Mid LAD w/ 2.5 x 12 mm Resolute 03/01/2017; PCI-JENNY to MID LAD with a 2.5 x 12 mm Promus Synergy and POBA-D2 08/08/18 (2) Essential (primary) hypertension Status: Chronic (3) Pure hypercholesterolemia Status: Chronic Past Medical History - Allergies and Home Meds Allergies/Adverse Reactions: Allergies Sulfa (Sulfonamide Antibiotics) Allergy (Verified 10/29/19 19:11) Other Surgical History: appendectomy, colectomy, tonsillectomy, - - CAD s/p stents, s/p uvulopalatopharyngoplasty Smoking Status: Current every day smoker - Family History Maternal Family History: Family History (Last Reviewed 02/20/19 @ 13:[address] Olegario Salinas DO) Father CAD (coronary artery disease) Kidney disease Mother CHF (congestive heart failure) Aortic valve replaced Brother Atrial fibrillation Family History: Reports: Heart Disease, - - Hypothyroidism Paternal Family History: Family History (Last Reviewed 02/20/19 @ 13:[address] Olegario Salinas DO) Father CAD (coronary artery disease) Kidney disease Mother CHF (congestive heart failure) Aortic valve replaced Brother Atrial fibrillation Family History: Reports: Heart Disease, - - Hypothyroidism Review of Systems General: Denies: Chills, Fever, Sweats Eyes: Reports: Blurred vision - right. Denies: Diplopia ENT: Reports: Right ear pain - Pain seems to radiate to his right ear, Rhinorrhea. Denies: Sore throat Cardiovascular: Denies: Chest pain, Palpitations Respiratory: Denies: Dyspnea, Cough, Dyspnea on exertion Gastrointestinal: Reports: Nausea. Denies: Abdominal pain, Vomiting, Diarrhea, Melena, Hematochezia Genitourinary: Denies: Dysuria, Hematuria, Frequency Musculoskeletal: Denies: Neck pain, Back pain, Extremity Pain Skin: Denies: Rash, Wounds Neurological: Reports: Headache. Denies: Weakness, Numbness Physical Exam Vital Signs/Narrative: Vital Signs Temp Pulse Resp BP Pulse Ox 10/29/19 19:08 97.6 F L 95 18 140/80 H 96 Inital Vital Signs reviewed: Yes General: Well nourished, Well developed Head: NC, AT Eyes: Perrl, EOMI ENT: Moist mucous membranes, No rhinorrhea, - - No nasal turbinate edema. No purulent discharge. No significant asymmetry. Posterior oropharynx clear. Mild ethmoid sinus tenderness, no other sinus tenderness. No facial swelling/asymmetry. Patient appears to have periorbital edema bilaterally without ecchymosis or cellulitis appearance, patient states he has genetic bags under my eyes, and this is my normal appearance. Neck: Supple, No Lymphadenopathy, No JVD, Nontender, No Meningismus Respiratory: No distress, - - No stridor Back: Nontender Extremities: Nontender, No edema Skin: Normal color, No rash, No Trauma Neuro: Alert, Oriented x3, Cranial nerves II-XII grossly intact, Normal Strength, Normal Sensation, Normal Gait Psychological: Normal affect, Normal Mood Diagnostic/Tx/Re-eval Clinical Impression(s) from Imaging Studies Brain CT 10/29/19 19:28 IMPRESSION: 1. No acute findings. 2. Probable intracranial hypertension/pseudotumor cerebri. Ophthalmology and neurology referral are advised. Electronically Signed: Jalil Vicente, at 20:02 EDT Tel , Service support , Facial/Sinus 10/29/19 19:28 IMPRESSION: 1. Normal paranasal sinuses without acute or chronic illness. Electronically Signed: Jalil Vicente, at 20:04 EDT Tel , Service support , Head/Neck CTA 10/29/19 21:16 IMPRESSION: 1. Technically limited examination. 2. Probably no dural venous sinus thrombosis. Extrinsic fluid dynamic related compression. If definitive assessment is required a dedicated proper technique CT venography of the head only is the study of choice. 3. Patent craniocervical arteries. Electronically Signed: Jalil Vicente, at 22:06 EDT Tel , Service support , Laboratory Tests 10/29/19 10/29/19 Range/Units 21:16 21:16 WBC 10.8 (4.4-11.0) K/mm3 RBC 4.97 (4.6-6.2) M/mm3 Hgb 15.2 (13.0-16.5) g/dL Hct 45.3 (40-54) % MCV 91.1 (80-94) fL MCH 30.6 (27.0-32.0) pg MCHC 33.6 (32-36) g/dL RDW Std Deviation 46.1 H (35.1-43.9) fl RDW Coeff of Bob 13.8 (11.6-14.6) % Plt Count 288 (150-450) K/mm3 MPV 9.4 (6.2-12.0) fl Immature Gran % (Auto) 0.400 (0.0-0.9) % Neut % (Auto) 63.0 (47-70) % Lymph % (Auto) 22.5 (19-41) % [place] % (Auto) 7.3 (0-10) % Eos % (Auto) 6.1 H (0-5) % Baso % (Auto) 0.7 (0-1) % Absolute Neuts (auto) 6.8 (2.0-7.7) X10^3/uL Absolute Lymphs (auto) 2.42 (0.83-4.51) X10^3/uL Nucleated RBC % 0 (0-5) % ESR 7 (0-20) mm/hr Sodium 139 (136-145) mmol/L Potassium 3.6 (3.5-5.1) mmol/L Chloride 107 (98-107) mmol/L Carbon Dioxide 25.0 (21.0-32.0) mmol/L Anion Gap 7 (5-15) BUN 24 H (7-18) mg/dL Creatinine 1.07 (0.70-1.30) mg/dL Estim Creat Clear Calc 75.47 ml/min Est GFR (MDRD) Af Amer 92 (>60) mL/min Est GFR (MDRD) Non-Af 76 (>60) mL/min BUN/Creatinine Ratio 22.4 H (10-20) RATIO Glucose 102 (74-106) mg/dL Calcium 8.2 L (8.5-10.1) mg/dL C-React Prot Ext Range 5.37 H (0.0-3.0) mg/L - Medical Decision Making CT findings above noted. Patient was given Toradol and Reglan, he is a little improved after these medications and stable without any focal neurologic symptoms at this time. I attempted to perform fundal exam at the bedside, but even with the lights off this was limited due to myosis. I did able to see blood vessels without difficulty but I was not able to visualize the optic disks to evaluate for papilledema. Patient did not notice any difference in his symptoms with regards to lying down or sitting up in the last week, except for the fact that the headache started while he was lying in bed, it woke him up from sleep, about 1 week ago. Given all of this, [facility] neurology was consulted emergently in the emergency department. The neurologist recommended obtaining stat CT angiography of the head and neck to rule out uncommon aneurysms, in addition to ESR, CRP, basic blood work, and if none of that shows anything that requires neuro interventional transfer to a higher level of care, he should be admitted for MRI with MRV with and without contrast and have an inpatient ophthalmology consultation to evaluate for papilledema. I did discuss w/ Dr. Lee with Ophthalmology, who will see the patient tomorrow. ED Disposition - Plan for ED Patient: Disposition: Acute Care Hospital [facility] Diagnosis: Idiopathic intracranial hypertension
[2019-10-29] MEDS: Ketorolac 30 MG/ML Syringe IM (19:34)
[2019-10-29] MEDS: Metoclopramide 10 MG/2 ML Vial 5 MG IM (19:37)
--- NOTE | 2019-10-29 20:24 | TELEMED_ITS ---
[facility] has confirmed receipt of a request for visit. This document confirms receipt of the order initiating the consult. To find the results of the consultation, please view the patient's reports for the scanned Telemed Consult.
--- NOTE | 2019-10-29 21:16 | CT_ITS ---
STUDY: CTA HEAD AND NECK WITH CONTRAST REASON FOR EXAM: Male, 54 years old. INTRACRANIAL HTN RADIATION DOSAGE (If Supplied By Facility): CTDIvol = ( 17.89 ) mGy, DLP = ( 705.47 ) mGycm TECHNIQUE: CT angiography was performed with a multi-detector CT scanner. Data acquisition was obtained from the skull base through the vertex following intravenous administration of IV 100mL [id number]-[id number]. MIP images were reconstructed from the axial data set. Post-processing of the angiographic images was performed, with multiplanar reformation and 3D reconstruction. Individualized dose optimization techniques were used for this CT. COMPARISON: No relevant priors. FINDINGS: Examination is technically suboptimal and was performed in the angiographic and not in the venographic phase of the exam. Patency of the dural venous sinuses is not definitively established as contrast is predominantly in the arteries with limited/suboptimal venous opacification. Some diagnostic information is available. Dural venous sinuses are likely patent without thrombosis. However, the sinuses are diffusely small due to extrinsic compression. There are pacchionian granulations bilaterally in the sigmoid sinuses. Jugular veins are not sufficiently opacified to be evaluated diagnostically. The aorta has a normal branching pattern. Right brachiocephalic, right subclavian, right common carotid, left common carotid and left subclavian arteries are patent. Bilateral common and internal carotid arteries are patent. Bilateral vertebral arteries arise from the subclavian arteries and a patent in their osseous segments. Bilateral base of skull carotids, bifurcations, anterior and middle cervical arteries and proximal branches are patent. There is a small to moderate right posterior communicating artery. Left posterior communicating artery is not seen. Posterior cerebral arteries, basilar artery and intradural codominant vertebral arteries are patent. There is obstructive sleep apnea appearance with airway collapse. There are no soft tissue neck masses. Cervical spine is intact and aligned. Lung apices are clear. CT/CTA Head AND Neck W/ Contrast IMPRESSION: 1. Technically limited examination. 2. Probably no dural venous sinus thrombosis. Extrinsic fluid dynamic related compression. If definitive assessment is required a dedicated proper technique CT venography of the head only is the study of choice. 3. Patent craniocervical arteries. Electronically Signed: Jalil Vicente, at 22:06 EDT Tel , Service support ,
[2019-10-29 21:35] LABS: Absolute Lymphocyte Count 2.42 X10^3/uL (0.83-4.51); Absolute Neutrophil Count 6.8 X10^3/uL (2.0-7.7); Basophil# 0.08 X10^3/uL; Basophil% 0.7 % (0-1); Eosinophil# 0.66 X10^3/uL; Eosinophils% 6.1 % (0-5); Hematocrit 45.3 % (40-54); Hemoglobin 15.2 g/dL (13.0-16.5); Lymphocyte # 2.42 X10^3/ul (4.0); Lymphocyte % 22.5 % (19-41); Mean Corp Hgb Conc 33.6 g/dL (32-36); Mean Corpuscular Hgb 30.6 pg (27.0-32.0); Mean Corpuscular Volume 91.1 fL (80-94); Mean Platelet Vol. 9.4 fl (6.2-12.0); Monocyte# 0.79 X10^3/uL; Monocyte% 7.3 % (0-10); NRBC Flagged by Analyzer 0 % (0-5); Neutrophil # 6.76 X10^3/uL (2.7-7.7); Platelet Count 288 K/mm3 (150-450); RBC Distribution Width CV 13.8 % (11.6-14.6); RBC Distribution Width SD 46.1 fl (35.1-43.9); Red Blood Count 4.97 M/mm3 (4.6-6.2); White Blood Count 10.8 K/mm3 (4.4-11.0)
[2019-10-29 21:37] LABS: Erythrocyte Sedimentation Rate 7 mm/hr (0-20)
[2019-10-29 21:39] LABS: Anion Gap 7 (5-15); BUN 24 mg/dL (7-18); BUN/Creat Ratio 22.4 RATIO (10-20); CRP 5.37 mg/L (0.0-3.0); Calcium,Total 8.2 mg/dL (8.5-10.1); Chloride 107 mmol/L (98-107); Creatinine, Serum 1.07 mg/dL (0.70-1.30); EST Glomerular Filtration Rate 76 mL/min (>60); Est Glom Filt Rate - Afr Amer 92 mL/min (>60); Estimated Creatinine Clearance 75.47 ml/min; Glucose 102 mg/dL (74-106); Potassium 3.6 mmol/L (3.5-5.1); Sodium Level 139 mmol/L (136-145)
--- NOTE | 2019-10-29 21:42 | HP.PCM_ITS ---
Problem List (1) Headache Status: Acute (2) Periorbital pain Status: Acute (3) Pain in periorbital region of right eye Status: Acute (4) Idiopathic intracranial hypertension Status: Acute (5) Atherosclerosis of coronary artery of [place] heart without angina pectoris Status: Chronic Qualifiers: Coronary Disease-Associated Artery/Lesion type: [place] artery Qualified Code(s): I25.10 - Atherosclerotic heart disease of [place] coronary artery without angina pectoris Comment: IPR-ZPV-Awtd LAD w/ 3.0 x 18 mm Resolute and Mid LAD w/ 2.5 x 12 mm Resolute 03/01/2017; PCI-JENNY to MID LAD with a 2.5 x 12 mm Promus Synergy and POBA-D2 08/08/18 (6) History of coronary artery stent placement Status: Chronic Comment: EDA-QGS-Fpxi LAD w/ 3.0 x 18 mm Resolute and Mid LAD w/ 2.5 x 12 mm Resolute 03/01/2017; PCI-JENNY to MID LAD with a 2.5 x 12 mm Promus Synergy and POBA-D2 08/08/18 (7) Essential (primary) hypertension Status: Chronic (8) Pure hypercholesterolemia Status: Chronic (9) Nicotine dependence Status: Chronic Qualifiers: Nicotine product type: cigarettes Substance use status: uncomplicated Qualified Code(s): F17.210 - Nicotine dependence, cigarettes, uncomplicated History of Present Illness Date of Admission: 10/29/19 Chief Complaint: Headache The patient is a 54 year old M with a significant history of CAD status post stent; nicotine dependence; hypertension; migraine; right eye astigmatism; hypertension; diverticulitis status post colectomy who presents to the emergency department with excruciating right sided head pain. His pain started a day before presentation. His pain radiates to his neck and to his upper back. He denies any aggravating or ameliorating factors. Further he has right thigh periorbital pain. He feels like the pain is behind his right globe. At baseline patient has blurry vision of the right eye blurry vision secondary to astigmatism. Patient thinks that the blurry vision in his right eye has increased. Brain CT showed no acute findings. It showed probable intracranial hypertension/pseudotumor cerebri. Ophthalmology and neurology referral was advised. Emergency department doctor discussed the case with [facility] neurology. About 6 weeks ago patient was treated with azithromycin for SOB. He had lost of smell and taste sensation. His covid test at that time was negative. Also about a week ago patient was given Augmentin for probable sinusitis. Reportedly Augmentin was ineffective. Past Medical History Past Medical History (Chronic Problems): Chronic Problems (Last Reviewed 10/30/19 @ 01:[address] Eddie Hernandez MD) Atherosclerosis of coronary artery of [place] heart without angina pectoris (Chronic) FCR-FMT-Ovof LAD w/ 3.0 x 18 mm Resolute and Mid LAD w/ 2.5 x 12 mm Resolute 03/01/2017; PCI-JENNY to MID LAD with a 2.5 x 12 mm Promus Synergy and POBA-D2 08/08/18 History of coronary artery stent placement (Chronic 08/08/18) KYK-DHY-Ugfq LAD w/ 3.0 x 18 mm Resolute and Mid LAD w/ 2.5 x 12 mm Resolute 03/01/2017; PCI-JENNY to MID LAD with a 2.5 x 12 mm Promus Synergy and POBA-D2 08/08/18 Essential (primary) hypertension (Chronic) Pure hypercholesterolemia (Chronic) Nicotine dependence (Chronic) Medical History: Medical History (Last Reviewed 10/30/19 @ 05:[address] Eddie Hernandez MD) Atherosclerosis of coronary artery of [place] heart without angina pectoris (Chronic) I25.10 ERS-FGC-[place]ia LAD w/ 3.0 x 18 mm Resolute and Mid LAD w/ 2.5 x 12 mm Resolute 03/01/2017; PCI-JENNY to MID LAD with a 2.5 x 12 mm Promus Synergy and POBA-D2 08/08/18 Essential (primary) hypertension (Chronic) I10 Pure hypercholesterolemia (Chronic) E78.00 Nicotine dependence (Chronic) F17.200 Anxiety and depression F41.9, F32.9 Chronic depression F32.9 Diverticulitis K57.92 Hypothyroidism E03.9 Migraine G43.909 Obesity E66.9 Segmental and somatic dysfunction of cervical region M99.01 Segmental and somatic dysfunction of lumbar region M99.03 Segmental dysfunction of thoracic region M99.02 Non-ST elevation (NSTEMI) myocardial infarction (Resolved) Onset Date: 02/2017 I21.4 Allergies Sulfa (Sulfonamide Antibiotics) Allergy (Verified 10/29/19 19:11) Other Home Medications: Ambulatory Orders Medication Instructions Recorded NK 10/29/19 Surgical History: Surgical History (Last Reviewed 10/30/19 @ 05:[address] Eddie Hernandez MD) History of coronary artery stent placement (Chronic) Onset Date: 08/08/18 Z95.5 AUX-WJW-Idvw LAD w/ 3.0 x 18 mm Resolute and Mid LAD w/ 2.5 x 12 mm Resolute 03/01/2017; PCI-JENNY to MID LAD with a 2.5 x 12 mm Promus Synergy and POBA-D2 08/08/18 History of appendectomy Z90.49 History of colectomy Z90.49 History of tonsillectomy Z90.89 History of uvulopalatopharyngoplasty Z98.890 Removal uvula Status post correction of deviated nasal septum Z98.890 Surgical History: appendectomy, colectomy, tonsillectomy, - - CAD s/p stents, s/p uvulopalatopharyngoplasty Psychiatric History: Depression Smoking Status: Current every day smoker - *Family History Maternal Family History: Family History (Last Reviewed 10/30/19 @ 05:[address] Eddie Hernandez MD) Father CAD (coronary artery disease) Kidney disease Mother CHF (congestive heart failure) Aortic valve replaced Brother Atrial fibrillation History Items: Heart Disease, - - Hypothyroidism Paternal Family History: Family History (Last Reviewed 10/30/19 @ 05:[address] Eddie Hernandez MD) Father CAD (coronary artery disease) Kidney disease Mother CHF (congestive heart failure) Aortic valve replaced Brother Atrial fibrillation History Items: Heart Disease, - - Hypothyroidism Review of Systems Constitutional: Denies: Chills, Fever, Weight Change Eyes: Reports: Blurred vision, Pain HEENT: Reports: Head Aches. Denies: Sinus Congestion, Sinus Drainage Cardiovascular: Denies: Chest Pain, Palpitations Respiratory: Denies: Cough, Shortness of breath at rest, Sputum production Gastrointestinal: Reports: Nausea. Denies: Abdominal Pain, Vomiting Genitourinary: Denies: Dysuria Musculoskeletal: Denies: Joint Pain, Joint Tenderness Skin: Denies: Rash, Wounds Neurological: Denies: Numbness, Tingling, Focal weakness Psychiatric: Denies: Anxiety, Depression, Homicidal Ideations, Suicidal Ideations Hematologic/ Lymphatic: Denies: Easy Bruising, Easy Bleeding VTE Information - Inpt Only VTE Present on Admission: No VTE Mechan Device Prophylaxis: None VTE Pharm Prophylaxis ordered?: Yes Patient Problems: Active and Suspected Problems (Last Reviewed 10/30/19 @ 01:[address] Eddie Hernandez MD) Idiopathic intracranial hypertension (Acute) Headache (Acute) Periorbital pain (Acute) Pain in periorbital region of right eye (Acute) - Physical Exam Vitals/I&O's: Vital Signs Temp Pulse Resp BP Pulse Ox 97.6 F L 85 15 190/108 H 96 10/29/19 19:08 10/29/19 20:14 10/29/19 20:10 10/29/19 20:14 10/29/19 20:10 Oxygen Delivery Method Room Air Weight: 113.398 kg Body Mass Index (BMI) 38.0 General: Alert, Oriented x3, Cooperative HEENT: Atraumatic, EOMI, Normocephalic, - - Ptosis of bilateral eyes with right worse than left. Pupils are equal bilaterally. Patient unable to keep eyes or pain to assess pupillary constriction. Can count fingers with bilateral eyes assessed independently. Neck: Supple, No JVD, Negative Carotid Bruits Lungs: Clear to auscultation, Normal air movement Cardiovascular: Regular rate, Normal S1, Normal S2, No murmurs Abdomen: Bowel Sounds Present, Soft, Non Tender Extremities: No edema, Capillary Refill Less than 3 Seconds Skin: No rashes, No breakdown Musculoskeletal: No Tenderness to Palpation of Joints or Extremities Neurological: Cranial nerves II-XII grossly intact Psych/Mental Status: Normal Affect, Appropriate Laboratory Results 10/29/19 21:16: WBC 10.8, RBC 4.97, Hgb 15.2, Hct 45.3, MCV 91.1, MCH 30.6, MCHC 33.6, RDW Std Deviation 46.1 H, RDW Coeff of Bob 13.8, Plt Count 288, MPV 9.4, Immature Gran % (Auto) 0.400, Neut % (Auto) 63.0, Lymph % (Auto) 22.5, [place] % (Auto) 7.3, Eos % (Auto) 6.1 H, Baso % (Auto) 0.7, Absolute Neuts (auto) 6.8, Absolute Lymphs (auto) 2.42, Nucleated RBC % 0, ESR 7 10/29/19 21:16: Sodium 139, Potassium 3.6, Chloride 107, Carbon Dioxide 25.0, Anion Gap 7, BUN 24 H, Creatinine 1.07, Estim Creat Clear Calc 75.47, Est GFR (MDRD) Af Amer 92, Est GFR (MDRD) Non-Af 76, BUN/Creatinine Ratio 22.4 H, Glucose 102, Calcium 8.2 L, C-React Prot Ext Range 5.37 H Current Medications Sodium Chloride 1,000 ml/ N/A 1,000 mls @ 113.398 mls/hr IV .[id number] FANNIE Stop: 10/30/19 21:21 Assessment/Plan All Active Problems (Last Reviewed 10/30/19 @ 01:[address] Eddie Hernandez MD) Idiopathic intracranial hypertension (Acute) Headache (Acute) Periorbital pain (Acute) Pain in periorbital region of right eye (Acute) Non-ST elevation (NSTEMI) myocardial infarction (Resolved 02/2017) Unstable angina (Resolved) The patient is a 54 year old M with a significant history of CAD status post stent; nicotine dependence; hypertension; migraine; right eye astigmatism; hypertension; diverticulitis status post colectomy who presents to the emergency department with excruciating right sided head pain and with right periorbital pain and increased blurry vision of the right eye. Intractable right-sided headache; and blurry vision of the right side Differential diagnosis include idiopathic intracranial hypertension. Reglan and Toradol iv given at the emergency department. Toradol IV continued. ESR was normal. CRP was mildly elevated. Pain neurologist recommendation MRV; and MRI of brain with and without contrast ordered. Neurologist recommended ophthalmology consultation. ED Doc discussed the case with director of guidance in [employer] who assured ED doc that patient will be examined on 10/30/2019. Per [facility] neurologist recommendations reconsult after above tests has been done. Hypertension PRN hydralazine IV ordered. Trend blood pressures. Tobacco abuse Counseled Nicotine patch prescribed. DVT Prophylaxis Sub lovenox Inpatient E&M: 61593 Init Hosp L3
[2019-10-30] VITALS (12 sets, daily range): BP systolic 148–198; BP diastolic 70–120; PULSE 67–84; RESP 12–18; TEMP 36.4–36.7; O2SAT 94–98
[2019-10-30] MEDS: hydrALAZINE 20 MG/ML Vial 10 MG IV ×2 (00:49→17:07)
[2019-10-30] MEDS: 0.9% Saline Lock 10 ML Syringe IV ×7 (00:51→20:38)
[2019-10-30] MEDS: Ketorolac 15 MG/ML Vial IV ×3 (01:38→16:44)
[2019-10-30 06:02] LABS: Absolute Lymphocyte Count 2.59 X10^3/uL (0.83-4.51); Absolute Neutrophil Count 4.9 X10^3/uL (2.0-7.7); Basophil# 0.08 X10^3/uL; Basophil% 0.9 % (0-1); Eosinophil# 0.68 X10^3/uL; Eosinophils% 7.5 % (0-5); Hematocrit 44.5 % (40-54); Hemoglobin 15.4 g/dL (13.0-16.5); Lymphocyte # 2.59 X10^3/ul (4.0); Lymphocyte % 28.5 % (19-41); Mean Corp Hgb Conc 34.6 g/dL (32-36); Mean Corpuscular Hgb 31.7 pg (27.0-32.0); Mean Corpuscular Volume 91.6 fL (80-94); Mean Platelet Vol. 9.5 fl (6.2-12.0); Monocyte# 0.79 X10^3/uL; Monocyte% 8.7 % (0-10); NRBC Flagged by Analyzer 0 % (0-5); Neutrophil # 4.92 X10^3/uL (2.7-7.7); Neutrophil % 54.1 % (47-70); Platelet Count 287 K/mm3 (150-450); RBC Distribution Width SD 47.1 fl (35.1-43.9); Red Blood Count 4.86 M/mm3 (4.6-6.2); White Blood Count 9.1 K/mm3 (4.4-11.0)
[2019-10-30 06:48] LABS: Anion Gap 5 (5-15); BUN 25 mg/dL (7-18); BUN/Creat Ratio 25.8 RATIO (10-20); Calcium,Total 8.3 mg/dL (8.5-10.1); Chloride 106 mmol/L (98-107); Creatinine, Serum 0.97 mg/dL (0.70-1.30); EST Glomerular Filtration Rate 85 mL/min (>60); Est Glom Filt Rate - Afr Amer 103 mL/min (>60); Estimated Creatinine Clearance 83.25 ml/min; Glucose 115 mg/dL (74-106); Potassium 3.7 mmol/L (3.5-5.1); Sodium Level 136 mmol/L (136-145)
--- NOTE | 2019-10-30 09:00 | MRI_ITS ---
STUDY: EXAMINATION - MRV BRAIN WITHOUT CONTRAST REASON FOR EXAM: Male, 54 years old. [place], pseudotumor cerebri -- pressure behind rt eye, mont[place] x 10 days TECHNIQUE: 3D [id number]-[id number] (TOF) imaging was performed in a 1.5 jr MRI scanner. COMPARISON: CTA head with contrast 10/29/2019. FINDINGS: Normal flow within the superior sagittal sinus. Normal flow within the superficial cortical veins. Normal flow within the paired internal cerebral veins, vein of Chris and straight sinus. Normal flow within the bilateral transverse and sigmoid sinuses. Normal flow within the bilateral jugular bulbs. MRI/MRV Head Without Contrast IMPRESSION: Normal unenhanced MRV of the brain and unchanged when compared to CTA head with contrast 10/29/2019. Electronically Signed: Patric Ovalle MD at 11:57 EDT , Service support ,
--- NOTE | 2019-10-30 09:00 | MRI_ITS ---
STUDY: MRI BRAIN WITH AND WITHOUT CONTRAST REASON FOR EXAM: Male, 54 years old. [place], pseudotumor cerebri -- pressure behind rt eye, [place] x 10 days TECHNIQUE: Standardized multiplanar fat and water weighted pulse sequences were obtained. 22 mL of IV Dot[place] 22 was administered for the contrast portion of the examination. COMPARISON: CT head without contrast 10/29/2019. FINDINGS: No restricted diffusion throughout the brain parenchyma. Normal size of the ventricles and extra-axial spaces for the patient''s age. Nonspecific posterior periventricular white matter T2 FLAIR hyperintensity foci in both cerebral hemispheres. They may be secondary to microvascular disease. No midline shift and no mass effects. Normal bilateral basal ganglia. Normal thalami. There is no extra-axial fluid accumulation. Normal flow voids within the major intracranial circulation suggesting patency by spin echo criteria. Normal venous enhancement. There is no enhancing intra-axial or extra-axial abnormality. Normal sella turcica, pituitary gland, infundibular stalk, optic chiasm and hypothalamus. Normal tectal plate and pineal gland. Normal midbrain, shawna and medulla. Normal cerebellum. Normal basal cisterns. Normal bilateral temporal bones. Normal bilateral internal auditory canals. No demonstrated orbital abnormality, within the constraints of a routine brain study. Normal visualized paranasal sinuses. Normal calvarium and skull base. Normal visualized soft tissue structures. Normal visualized upper cervical spine. MRI/Brain W/WO Contrast IMPRESSION: 1. No MRI evidence of acute or subacute ischemic infarct or acute intracranial abnormality. 2. No MRI evidence of enhancing lesions extra-axially and intraaxially. 3. Nonspecific T2 FLAIR hyperintensity foci in the posterior periventricular white matter. They may be secondary to microvascular disease. Electronically Signed: Patric Ovalle MD at 11:54 EDT , Service support ,
--- NOTE | 2019-10-30 09:15 | CON.PCM_ITS ---
Problem List (1) Headache Status: Acute Reason for Consult Date of Consultation: 10/30/19 Reason for Consultation: Headache, right eye pain. Concern for IIH History of Present Illness: The patient is a 54 year old M [] Admitted with right eye pain, pressure and headache worsening x days. No diplopia or pain with EOMs. No prior ocular history other than astigmatism OD. States he should wear reading glasses, but he does not. States lower eyelids are chronically swollen, nothing new. No fevers, chills. Denies jaw claudication, joint pains, unintentional weight loss, arthralgias. Recently treated for sinusitis with Augmentin - no improvement. Primary team is working up for IIH and venous sinus thrombosis. MRI/MRV ordered. Past Medical History Past Medical History (Chronic Problems): Chronic Problems (Last Reviewed 10/30/19 @ 05:[address] Eddie Hernandez MD) Atherosclerosis of coronary artery of [place] heart without angina pectoris (Chronic) KOV-PRO-Yfoc LAD w/ 3.0 x 18 mm Resolute and Mid LAD w/ 2.5 x 12 mm Resolute 03/01/2017; PCI-JENNY to MID LAD with a 2.5 x 12 mm Promus Synergy and POBA-D2 08/08/18 History of coronary artery stent placement (Chronic 08/08/18) UDS-TXK-[place] LAD w/ 3.0 x 18 mm Resolute and Mid LAD w/ 2.5 x 12 mm Resolute 03/01/2017; PCI-JENNY to MID LAD with a 2.5 x 12 mm Promus Synergy and POBA-D2 08/08/18 Essential (primary) hypertension (Chronic) Pure hypercholesterolemia (Chronic) Nicotine dependence (Chronic) Medical History: Medical History (Last Reviewed 10/30/19 @ 05:[address] Eddie Hernandez MD) Atherosclerosis of coronary artery of [place] heart without angina pectoris (Chronic) I25.10 STP-BIU-Snjd LAD w/ 3.0 x 18 mm Resolute and Mid LAD w/ 2.5 x 12 mm Resolute 03/01/2017; PCI-JENNY to MID LAD with a 2.5 x 12 mm Promus Synergy and POBA-D2 08/08/18 Essential (primary) hypertension (Chronic) I10 Pure hypercholesterolemia (Chronic) E78.00 Nicotine dependence (Chronic) F17.200 Anxiety and depression F41.9, F32.9 Chronic depression F32.9 Diverticulitis K57.92 Hypothyroidism E03.9 Migraine G43.909 Obesity E66.9 Segmental and somatic dysfunction of cervical region M99.01 Segmental and somatic dysfunction of lumbar region M99.03 Segmental dysfunction of thoracic region M99.02 Non-ST elevation (NSTEMI) myocardial infarction (Resolved) Onset Date: 02/2017 I21.4 Allergies Sulfa (Sulfonamide Antibiotics) Allergy (Verified 10/29/19 19:11) Other Home Medications: Ambulatory Orders Medication Instructions Recorded Amox-Clav 875-125 mg Tablet 1 tab PO BID 10/30/19 Surgical History: Surgical History (Last Reviewed 10/30/19 @ 05:[address] Eddie Hernandez MD) History of coronary artery stent placement (Chronic) Onset Date: 08/08/18 Z95.5 PRL-NGA-Hykd LAD w/ 3.0 x 18 mm Resolute and Mid LAD w/ 2.5 x 12 mm Resolute 03/01/2017; PCI-JENNY to MID LAD with a 2.5 x 12 mm Promus Synergy and POBA-D2 08/08/18 History of appendectomy Z90.49 History of colectomy Z90.49 History of tonsillectomy Z90.89 History of uvulopalatopharyngoplasty Z98.890 Removal uvula Status post correction of deviated nasal septum Z98.890 Surgical History: appendectomy, colectomy, tonsillectomy, - - CAD s/p stents, s/p uvulopalatopharyngoplasty Psychiatric History: Depression Smoking Status: Current every day smoker Tobacco Use: Cigarettes - *Family History Maternal Family History: Family History (Last Reviewed 10/30/19 @ 05:[address] Eddie Hernandez MD) Father CAD (coronary artery disease) Kidney disease Mother CHF (congestive heart failure) Aortic valve replaced Brother Atrial fibrillation History Items: Heart Disease, - - Hypothyroidism Paternal Family History: Family History (Last Reviewed 10/30/19 @ 05:[address] Eddie Hernandez MD) Father CAD (coronary artery disease) Kidney disease Mother CHF (congestive heart failure) Aortic valve replaced Brother Atrial fibrillation History Items: Heart Disease, - - Hypothyroidism Review of Systems Constitutional: Denies: Anorexia, Chills, Fever, Weight Change, Fatigue Eyes: Reports: Blurred vision, Eyelid Inflammation, Pain. Denies: Double vision, Redness, Vision Change HEENT: Denies: Difficulty Hearing Cardiovascular: Denies: Chest Pain Respiratory: Denies: Cough, Shortness of Breath Gastrointestinal: Denies: Abdominal Pain, Nausea, Vomiting Genitourinary: Denies: Dysuria Musculoskeletal: Denies: Joint stiffness, Joint Tenderness, Muscle pain, Shoulder Pain Neurological: Reports: Headaches Patient Problems: Active and Suspected Problems (Last Reviewed 10/30/19 @ 05:[address] Eddie Hernandez MD) Idiopathic intracranial hypertension (Acute) Headache (Acute) Periorbital pain (Acute) Pain in periorbital region of right eye (Acute) Objective: VAsc OD 20/50 OS 20/25 IOP OD 19 mmHg OS 18 mmHg by tonopen Pupils 4 to 2 mm OU, no rAPD OU CVF full OU EOM full OU Lower eyelid edema OU 1+ conjunctival mild mucoid discharge Cornea clear OU AC deep and formed OU Iris round and reactive OU Lens trace to 1+ NS OU Vitreous clear OU Optic nerve with slight elevation OU, possible trace edema but no obscuration of blood vessels as they leave optic disc. C:D 0.1 OU. Macula flat OU Vessels normal OU Periphery attached OU - Physical Exam Vitals/I&O's: Vital Signs Temp Pulse Resp BP Pulse Ox 97.6 F L 67 12 148/70 H 95 10/30/19 05:38 10/30/19 05:38 10/30/19 05:38 10/30/19 05:38 10/30/19 07:25 Oxygen Delivery Method Room Air Weight: 115.4 kg Body Mass Index (BMI) 38.7 Intake and Output for Last 24 Hours 10/28/19 10/29/19 10/30/19 23:59 23:59 23:59 Intake Total 0 0 617 / 617 Balance 0 0 617 / 617 General: Alert, Oriented x3, Cooperative, No apparent distress HEENT: Atraumatic, PERRLA, EOMI, Normocephalic Laboratory Results 10/29/19 21:16: WBC 10.8, RBC 4.97, Hgb 15.2, Hct 45.3, MCV 91.1, MCH 30.6, MCHC 33.6, RDW Std Deviation 46.1 H, RDW Coeff of Bob 13.8, Plt Count 288, MPV 9.4, Immature Gran % (Auto) 0.400, Neut % (Auto) 63.0, Lymph % (Auto) 22.5, [place] % (Auto) 7.3, Eos % (Auto) 6.1 H, Baso % (Auto) 0.7, Absolute Neuts (auto) 6.8, Absolute Lymphs (auto) 2.42, Nucleated RBC % 0, ESR 7 10/29/19 21:16: Sodium 139, Potassium 3.6, Chloride 107, Carbon Dioxide 25.0, Anion Gap 7, BUN 24 H, Creatinine 1.07, Estim Creat Clear Calc 75.47, Est GFR (MDRD) Af Amer 92, Est GFR (MDRD) Non-Af 76, BUN/Creatinine Ratio 22.4 H, Gluc ose 102, Calcium 8.2 L, C-React Prot Ext Range 5.37 H 10/30/19 05:28: WBC 9.1, RBC 4.86, Hgb 15.4, Hct 44.5, MCV 91.6, MCH 31.7, MCHC 34.6, RDW Std Deviation 47.1 H, RDW Coeff of Bob 14.0, Plt Count 287, MPV 9.5, Immature Gran % (Auto) 0.300, Neut % (Auto) 54.1, Lymph % (Auto) 28.5, [place] % (Auto) 8.7, Eos % (Auto) 7.5 H, Baso % (Auto) 0.9, Absolute Neuts (auto) 4.9, Absolute Lymphs (auto) 2.59, Nucleated RBC % 0 10/30/19 05:28: Sodium 136, Potassium 3.7, Chloride 106, Carbon Dioxide 25.0, Anion Gap 5, BUN 25 H, Creatinine 0.97, Estim Creat Clear Calc 83.25, Est GFR (MDRD) Af Amer 103, Est GFR (MDRD) Non-Af 85, BUN/Creatinine Ratio 25.8 H, Glucose 115 H, Calcium 8.3 L Current Medications Albuterol Sulfate (Ventolin Aerosols) 2.5 mg INHALATION Q2H PRN PRN PRN Reason: Shortness of Breath/Wheezing Amoxicillin/Clavulanate Potassium (Augmentin Tablet) 875 mg PO BIDCM FANNIE Stop: 10/30/19 17:01 Enoxaparin Sodium (Lovenox) 40 mg SC DAILY [facility] Hydralazine HCl (Apresoline Iv) 10 mg IV Q4H PRN PRN PRN Reason: SBP > 160 Last Admin: 10/30/19 00:49 Dose: 10 mg Documented by: Sodium Chloride () 250 mls @ 15 mls/hr IV .[id number] PRN PRN Reason: Saline Flush Sodium Chloride () 250 mls @ 15 mls/hr IV .[id number] PRN PRN Reason: Additional IVPB Infusion Ketorolac Tromethamine (Toradol (Bkc)) 15 mg IV Q6H PRN PRN PRN Reason: headache 5-12/01 Stop: 11/03/19 16:34 Last Admin: 10/30/19 01:38 Dose: 15 mg Documented by: Melatonin (Melatonin) 3 mg PO QHS PRN PRN PRN Reason: INSOMNIA Nicotine (Nicoderm Cq (Pbkc)) 21 mg TRANSDERM. DAILY [facility] Ondansetron HCl (Zofran) 4 mg IV Q8H PRN PRN PRN Reason: NAUSEA/VOMITING Senna/Docusate Sodium (Senokot-S, Jocelyn-Colace) 2 tablet PO BID PRN PRN PRN Reason: Constipation Sodium Chloride () 10 - 40 ml IV UD PRN PRN Reason: SALINE FLUSH Last Admin: 10/30/19 01:38 Dose: 20 ml Documented by: Assessment/Plan All Active Problems (Last Reviewed 10/30/19 @ 05:[address] Eddie Hernandez MD) Idiopathic intracranial hypertension (Acute) Headache (Acute) Periorbital pain (Acute) Pain in periorbital region of right eye (Acute) Non-ST elevation (NSTEMI) myocardial infarction (Resolved 02/2017) Unstable angina (Resolved) Right eye pain, headache ESR normal. CRP slightly elevated. Platelets normal. No GCA symptoms other than headache. Also is male and young for GCA. Low suspicion for GCA. 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 Agree with MRI / MRV to rule out venous sinus thrombosis or other cause of elevated intracranial pressure. No signs of anterior or posterior scleritis. DDx includes idiopathic orbital inflammatory syndrome (unlikely given no pain with EOMs), thyroid eye disease, orbital myositis, cluster headache, intracranial mass. Can follow up with ophthalmology as outpatient nonurgent. Please call with questions or concerns. Thank you for involving me with the care of this p atient.
[2019-10-30] MEDS: Enoxaparin 40 MG/0.4 ML Syringe SC (09:23)
[2019-10-30] MEDS: Amox/Clavulanate 875 MG Tablet PO (09:23)
[2019-10-30 09:47] LABS: CRP 4.59 mg/L (0.0-3.0)
--- NOTE | 2019-10-30 12:51 | PN_ITS ---
<Stone Rosas - Last Filed: 10/30/19 12:51> Patient Problems: Active and Suspected Problems (Last Reviewed 10/30/19 @ 05:[address] Eddie Hernandez MD) Idiopathic intracranial hypertension (Acute) Headache (Acute) Periorbital pain (Acute) Pain in periorbital region of right eye (Acute) Reason for Visit: Headache blurry vision right eye Subjective: Ongoing severe pain described as pressure behind the right eye. chronic changes per opthalmo. Pt denies hx proximal muscle aches or arthritis. No hx migraine or cluster headache. Some tooth pain as well. No numbness/tingling in the cheek. Denies Jaw pain. No recent illness/infection. No rash. Vitals/I&O's: Vital Signs Temp Pulse Resp BP Pulse Ox 97.7 F L 70 16 198/120 H 98 10/30/19 11:38 10/30/19 11:38 10/30/19 11:38 10/30/19 11:38 10/30/19 11:38 Oxygen Delivery Method Room Air Weight: 254 lb 6.615 oz Body Mass Index (BMI) 38.7 Intake and Output for Last 24 Hours 10/28/19 10/29/19 10/30/19 23:59 23:59 23:59 Intake Total 0 / 0 617 / 617 Balance 0 / 0 617 / 617 General: Alert, Oriented x3, Cooperative HEENT: Atraumatic, PERRLA, EOMI, Normocephalic Neck: Supple, No JVD, Negative Carotid Bruits Lungs: Clear to auscultation, Normal air movement Cardiovascular: Regular rate, No murmurs Abdomen: Bowel Sounds Present, Soft, Non Tender Extremities: No edema, Capillary Refill Less than 3 Seconds Skin: No rashes, No breakdown Musculoskeletal: No Tenderness to Palpation of Joints or Extremities Neurological: Cranial nerves II-XII grossly intact Psych/Mental Status: Normal Affect, Appropriate, Alert and oriented to time, place, person, mood and affect Laboratory Results 10/29/19 21:16: WBC 10.8, RBC 4.97, Hgb 15.2, Hct 45.3, MCV 91.1, MCH 30.6, MCHC 33.6, RDW Std Deviation 46.1 H, RDW Coeff of Bob 13.8, Plt Count 288, MPV 9.4, Immature Gran % (Auto) 0.400, Neut % (Auto) 63.0, Lymph % (Auto) 22.5, Mccormick % (Auto) 7.3, Eos % (Auto) 6.1 H, Baso % (Auto) 0.7, Absolute Neuts (auto) 6.8, Absolute Lymphs (auto) 2.42, Nucleated RBC % 0, ESR 7 10/29/19 21:16: Sodium 139, Potassium 3.6, Chloride 107, Carbon Dioxide 25.0, Anion Gap 7, BUN 24 H, Creatinine 1.07, Estim Creat Clear Calc 75.47, Est GFR (MDRD) Af Amer 92, Est GFR (MDRD) Non-Af 76, BUN/Creatinine Ratio 22.4 H, Glucose 102, Calcium 8.2 L, C-React Prot Ext Range 5.37 H 10/30/19 05:28: WBC 9.1, RBC 4.86, Hgb 15.4, Hct 44.5, MCV 91.6, MCH 31.7, MCHC 34.6, RDW Std Deviation 47.1 H, RDW Coeff of Bob 14.0, Plt Count 287, MPV 9.5, Immature Gran % (Auto) 0.300, Neut % (Auto) 54.1, Lymph % (Auto) 28.5, Mccormick % (Auto) 8.7, Eos % (Auto) 7.5 H, Baso % (Auto) 0.9, Absolute Neuts (auto) 4.9, Absolute Lymphs (auto) 2.59, Nucleated RBC % 0 10/30/19 05:28: Sodium 136, Potassium 3.7, Chloride 106, Carbon Dioxide 25.0, Anion Gap 5, BUN 25 H, Creatinine 0.97, Estim Creat Clear Calc 83.25, Est GFR (MDRD) Af Amer 103, Est GFR (MDRD) Non-Af 85, BUN/Creatinine Ratio 25.8 H, Glucose 115 H, Calcium 8.3 L 10/30/19 05:28: C-React Prot Ext Range 4.59 H Current Medications Albuterol Sulfate (Ventolin Aerosols) 2.5 mg INHALATION Q2H PRN PRN PRN Reason: Shortness of Breath/Wheezing Amoxicillin/Clavulanate Potassium (Augmentin Tablet) 875 mg PO BIDCM FANNIE Stop: 10/30/19 17:01 Last Admin: 10/30/19 09:23 Dose: 875 mg Documented by: Enoxaparin Sodium (Lovenox) 40 mg SC DAILY [facility] Last Admin: 10/30/19 09:23 Dose: 40 mg Documented by: Hydralazine HCl (Apresoline Iv) 10 mg IV Q4H PRN PRN PRN Reason: SBP > 160 Last Admin: 10/30/19 00:49 Dose: 10 mg Documented by: Sodium Chloride () 250 mls @ 15 mls/hr IV .[id number] PRN PRN Reason: Saline Flush Sodium Chloride () 250 mls @ 15 mls/hr IV .[id number] PRN PRN Reason: Additional IVPB Infusion Ketorolac Tromethamine (Toradol (Bkc)) 15 mg IV Q6H PRN PRN PRN Reason: headache 5-10 Stop: 11/03/19 16:34 Last Admin: 10/30/19 09:23 Dose: 15 mg Documented by: Labetalol HCl (Trandate) 40 mg IV Q6H PRN PRN PRN Reason: BLOOD PRESSURE Melatonin (Melatonin) 3 mg PO QHS PRN PRN PRN Reason: INSOMNIA Nicotine (Nicoderm Cq (Pbkc)) 21 mg TRANSDERM. DAILY [facility] Last Admin: 10/30/19 09:20 Dose: Not Given Documented by: Ondansetron HCl (Zofran) 4 mg IV Q8H PRN PRN PRN Reason: NAUSEA/VOMITING Promethazine HCl (Phenergan) 6.25 mg IM Q4H PRN PRN PRN Reason: NAUSEA/VOMITING Senna/Docusate Sodium (Senokot-S, Jocelyn-Colace) 2 tablet PO BID PRN PRN PRN Reason: Constipation Sodium Chloride () 10 - 40 ml IV UD PRN PRN Reason: SALINE FLUSH Last Admin: 10/30/19 09:24 Dose: 10 ml Documented by: STROKE Vital Signs/Narrative: Vital Signs Temp Pulse Resp BP Pulse Ox 10/30/19 11:38 97.7 F L 70 16 198/120 H 98 Medical Necessity - Tobacco Use Smoking Status: Current every day smoker Tobacco Use: Cigarettes Assessment/Plan All Active Problems (Last Reviewed 10/30/19 @ 05:[address] Eddie Hernandez MD) Idiopathic intracranial hypertension (Acute) Headache (Acute) Periorbital pain (Acute) Pain in periorbital region of right eye (Acute) Non-ST elevation (NSTEMI) myocardial infarction (Resolved 02/2017) Unstable angina (Resolved) 1. Intractable headache - concern for pseudotumor cerebri per CTA head/neck however opthalmo did not note papilledema. MRI brain, MRV negative for acute process. ESR negative however CRP somewhat elevated. No other symptoms concerning for temporal arteritis/PMR. More likely migraine or cluster headache. Pt will receive maxalt, toradol, phenergan. If no improvement consider decadron/depakene. Will also trial high flow O2 for cluster headache. CT brain with concerns for sinus occlusion however the patient denies any recent sinus symptoms. 2. HTN emergency - suspect 2/2 pain however this may also exacerbation headache and visual symptoms therefore I feel it is reasonable to aggressively treat the pressure in addition to the headache itself, PRN hydralazine and Labetalol are ordered. 3. HLD 4. Recently treated for sinusitis - has been on augmentin with no improvement. completed full course of therapy. 5. Nicotine abuse - patch DVT ppx: Lovenox DC Planning: Pending improvement in headache and blood pressure This patient was seen by Stone Rosas PA-C under the supervision of Doctor Rowena. <Rhonda Guaman - Last Filed: 10/30/19 14:09> Vitals/I&O's: Vital Signs Temp Pulse Resp BP Pulse Ox 97.7 F L 70 16 169/95 H 98 10/30/19 11:38 10/30/19 11:38 10/30/19 11:38 10/30/19 14:01 10/30/19 11:38 Oxygen Delivery Method Room Air Weight: 115.4 kg Body Mass Index (BMI) 38.7 Intake and Output for Last 24 Hours 10/28/19 10/29/19 10/30/19 23:59 23:59 23:59 Intake Total 0 / 0 1213 / 1213 Balance 0 / 0 1213 / 1213 Laboratory Results 10/29/19 21:16: WBC 10.8, RBC 4.97, Hgb 15.2, Hct 45.3, MCV 91.1, MCH 30.6, MCHC 33.6, RDW Std Deviation 46.1 H, RDW Coeff of Bob 13.8, Plt Count 288, MPV 9.4, Immature Gran % (Auto) 0.400, Neut % (Auto) 63.0, Lymph % (Auto) 22.5, Mccormick % (Auto) 7.3, Eos % (Auto) 6.1 H, Baso % (Auto) 0.7, Absolute Neuts (auto) 6.8, Absolute Lymphs (auto) 2.42, Nucleated RBC % 0, ESR 7 10/29/19 21:16: Sodium 139, Potassium 3.6, Chloride 107, Carbon Dioxide 25.0, Anion Gap 7, BUN 24 H, Creatinine 1.07, Estim Creat Clear Calc 75.47, Est GFR (MDRD) Af Amer 92, Est GFR (MDRD) Non-Af 76, BUN/Creatinine Ratio 22.4 H, Glucose 102, Calcium 8.2 L, C-React Prot Ext Range 5.37 H 10/30/19 05:28: WBC 9.1, RBC 4.86, Hgb 15.4, Hct 44.5, MCV 91.6, MCH 31.7, MCHC 34.6, RDW Std Deviation 47.1 H, RDW Coeff of Bob 14.0, Plt Count 287, MPV 9.5, Immature Gran % (Auto) 0.300, Neut % (Auto) 54.1, Lymph % (Auto) 28.5, Mccormick % (Auto) 8.7, Eos % (Auto) 7.5 H, Baso % (Auto) 0.9, Absolute Neuts (auto) 4.9, Absolute Lymphs (auto) 2.59, Nucleated RBC % 0 10/30/19 05:28: Sodium 136, Potassium 3.7, Chloride 106, Carbon Dioxide 25.0, Anion Gap 5, BUN 25 H, Creatinine 0.97, Estim Creat Clear Calc 83.25, Est GFR (MDRD) Af Amer 103, Est GFR (MDRD) Non-Af 85, BUN/Creatinine Ratio 25.8 H, Glucose 115 H, Calcium 8.3 L 10/30/19 05:28: C-React Prot Ext Range 4.59 H Current Medications Albuterol Sulfate (Ventolin Aerosols) 2.5 mg INHALATION Q2H PRN PRN PRN Reason: Shortness of Breath/Wheezing Enoxaparin Sodium (Lovenox) 40 mg SC DAILY [facility] Last Admin: 10/30/19 09:23 Dose: 40 mg Documented by: Hydralazine HCl (Apresoline Iv) 10 mg IV Q4H PRN PRN PRN Reason: SBP > 160 Last Admin: 10/30/19 00:49 Dose: 10 mg Documented by: Sodium Chloride () 250 mls @ 15 mls/hr IV .[id number] PRN PRN Reason: Saline Flush Sodium Chloride () 250 mls @ 15 mls/hr IV .[id number] PRN PRN Reason: Additional IVPB Infusion Ketorolac Tromethamine (Toradol (Bkc)) 15 mg IV Q6H PRN PRN PRN Reason: headache 5-10 Stop: 11/03/19 16:34 Last Admin: 10/30/19 09:23 Dose: 15 mg Documented by: Labetalol HCl (Trandate) 40 mg IV Q6H PRN PRN PRN Reason: BLOOD PRESSURE Last Admin: 10/30/19 13:12 Dose: 40 mg Documented by: Melatonin (Melatonin) 3 mg PO QHS PRN PRN PRN Reason: INSOMNIA Nicotine (Nicoderm Cq (Pbkc)) 21 mg TRANSDERM. DAILY [facility] Last Admin: 10/30/19 09:20 Dose: Not Given Documented by: Ondansetron HCl (Zofran) 4 mg IV Q8H PRN PRN PRN Reason: NAUSEA/VOMITING Promethazine HCl (Phenergan) 6.25 mg IM Q4H PRN PRN PRN Reason: NAUSEA/VOMITING Senna/Docusate Sodium (Senokot-S, Jocelyn-Colace) 2 tablet PO BID PRN PRN PRN Reason: Constipation Sodium Chloride () 10 - 40 ml IV UD PRN PRN Reason: SALINE FLUSH Last Admin: 10/30/19 09:24 Dose: 10 ml Documented by: STROKE Vital Signs/Narrative: Vital Signs Temp Pulse Resp BP BP Pulse Ox 10/30/19 14:01 169/95 H 10/30/19 11:38 97.7 F L 70 16 198/120 H 98 Assessment/Plan This patient was seen in conjunction with CARYN Anthony. I have independently interviewed and examined the patient and reviewed pertinent historical, laboratory, and other data. Please refer to CARYN Anthony note for his patient's presentation, findings, and recommendations. I have reviewed and his note and concur with his documentation Patient was seen and examined. He complains of severe headache. Reviewed imaging. MRI of the brain and MRV were negative. ESR is normal, CRP elevated. Discussed with ophthalmology. Patient did not have any overt papilledema. Chronic changes seen. Physical Exam: Gen: Looks in some discomfort, not pale, not jaundiced, morbidly obese CVS:HS I +II, regular, no murmurs RESP: Diminished at lung bases GI: BS present and normal, soft, nontender, no palpable organs EXT:No edema ASSESSMENT: 1. Intractable headache likely acute migraine 2. Uncontrolled hypertension 3. Morbid obesity 4. Hyperlipidemia 5. Recent sinusitis 6. Nicotine dependence 7. Possible ANÍBAL Plan: Continue on Imitrex, metoclopramide, IV Toradol as needed Control blood pressure Patient will need sleep study in the outpatient Inpatient E&M: [id number] [facility] Hosp L2
[2019-10-30] MEDS: Labetalol (Prefilled) 20 MG/4 ML 40 MG IV ×2 (13:12→19:02)
[2019-10-30] MEDS: SUMAtriptan 6 MG/0.5 ML Vial SC ×2 (13:18→18:25)
[2019-10-30] MEDS: Metoclopramide 10 MG/2 ML Vial 5 MG IV (16:43)
[2019-10-30] MEDS: DiphenhydrAMINE 50 MG/ML Syringe 25 MG IV (18:23)
[2019-10-31] VITALS: BP 157/79; PULSE 82; RESP 16; TEMP 36.7; O2SAT 96
[2019-10-31] MEDS: Ketorolac 15 MG/ML Vial IV ×2 (02:08→08:19)
[2019-10-31] MEDS: 0.9% Saline Lock 10 ML Syringe IV ×5 (06:23→13:41)
[2019-10-31] MEDS: Labetalol (Prefilled) 20 MG/4 ML 40 MG IV ×2 (06:32→13:44)
[2019-10-31 07:10] VITALS: PULSE 79; O2SAT 96
[2019-10-31 07:44] VITALS: BP 147/86; PULSE 79; RESP 16; TEMP 36.4; O2SAT 96
[2019-10-31] MEDS: Enoxaparin 40 MG/0.4 ML Syringe SC (08:56)
[2019-10-31] MEDS: Furosemide 20 MG/2 ML VIAL IV (09:50)
[2019-10-31] MEDS: Morphine 2 MG/ML Syringe IV (10:44)
--- NOTE | 2019-10-31 12:38 | PCM.PN.HOSP ---
<Stone Rosas - Last Filed: 10/31/19 12:38> Patient Problems: Active and Suspected Problems (Last Reviewed 10/30/19 @ 05:[address] Eddie Hernandez MD) Idiopathic intracranial hypertension (Acute) Headache (Acute) Periorbital pain (Acute) Pain in periorbital region of right eye (Acute) Reason for Visit: [place] Subjective: Pt states no improvement at all in headache since yesterday with any of the medications we gave him. He tried O2 for 15 minutes and took it off with no relief. He continues to have ongoing pain described as pressure behind the right eye. BP has improved. Vitals/I&O's: Vital Signs Temp Pulse Resp BP Pulse Ox 97.6 F L 79 16 147/86 H 96 10/31/19 07:44 10/31/19 07:44 10/31/19 07:44 10/31/19 07:44 10/31/19 07:44 Oxygen Flow Rate (L/min) 0 Oxygen Delivery Method Room Air Weight: 254 lb 6.615 oz Body Mass Index (BMI) 38.7 Intake and Output for Last 24 Hours 10/29/19 10/30/19 10/31/19 23:59 23:59 23:59 Intake Total 0 / 0 2259.25 / 2259.25 368 / 368 Balance 0 / 0 2259.25 / 2259.25 368 / 368 General: Alert, Oriented x3, Cooperative HEENT: Atraumatic, PERRLA, EOMI, Normocephalic Neck: Supple, No JVD, Negative Carotid Bruits Lungs: Clear to auscultation, Normal air movement Cardiovascular: Regular rate, No murmurs Abdomen: Bowel Sounds Present, Soft, Non Tender Extremities: No edema, Capillary Refill Less than 3 Seconds Skin: No rashes, No breakdown Musculoskeletal: No Tenderness to Palpation of Joints or Extremities Neurological: Cranial nerves II-XII grossly intact Psych/Mental Status: Normal Affect, Appropriate, Alert and oriented to time, place, person, mood and affect Current Medications Albuterol Sulfate (Ventolin Aerosols) 2.5 mg INHALATION Q2H PRN PRN PRN Reason: Shortness of Breath/Wheezing Hydralazine HCl (Apresoline Iv) 10 mg IV Q4H PRN PRN PRN Reason: SBP > 160 Last Admin: 10/30/19 17:07 Dose: 10 mg Documented by: Sodium Chloride () 250 mls @ 15 mls/hr IV .[id number] PRN PRN Reason: Saline Flush Last Infusion: 10/31/19 02:05 Dose: 0 mls/hr Documented by: Sodium Chloride () 250 mls @ 15 mls/hr IV .[id number] PRN PRN Reason: Additional IVPB Infusion Labetalol HCl (Trandate) 40 mg IV Q6H PRN PRN PRN Reason: BLOOD PRESSURE Last Admin: 10/31/19 06:32 Dose: 40 mg Documented by: Melatonin (Melatonin) 3 mg PO QHS PRN PRN PRN Reason: INSOMNIA Nicotine (Nicoderm Cq (Pbkc)) 21 mg TRANSDERM. DAILY [facility] Last Admin: 10/31/19 08:56 Dose: 21 mg Documented by: Ondansetron HCl (Zofran) 4 mg IV Q8H PRN PRN PRN Reason: NAUSEA/VOMITING Senna/Docusate Sodium (Senokot-S, Jocelyn-Colace) 2 tablet PO BID PRN PRN PRN Reason: Constipation Sodium Chloride () 10 - 40 ml IV UD PRN PRN Reason: SALINE FLUSH Last Admin: 10/31/19 10:44 Dose: 10 ml Documented by: Medical Necessity - Tobacco Use Smoking Status: Current every day smoker Tobacco Use: Cigarettes Assessment/Plan All Active Problems (Last Reviewed 10/30/19 @ 05:[address] Eddie Hernandez MD) Idiopathic intracranial hypertension (Acute) Headache (Acute) Periorbital pain (Acute) Pain in periorbital region of right eye (Acute) Non-ST elevation (NSTEMI) myocardial infarction (Resolved 02/2017) Unstable angina (Resolved) 1. Intractable headache - no improvement with imitrex x 2, reglan, toradol, solumedrol, depakote IV. Re consulted Neuro whom I spoke with on the phone, who feels that pseudotumor cerebri is unlikely but not completely excluded, therefore the patient will need an LP. If the LP is c/w pseudotumor cerebri then he will be treated with diamox. If it is negative, the patient may have Trigeminal neuralgia in which case he can be started on Tegretal 100 bid which he may take on an outpatient bases. -LP in the AM. Hold lovenox. Fluid panels ordered. Needs opening and closing pressures checked for pseudotumor cerebri. I discussed this with Dr. Enriquez. 2. HTN emergency - improved. continue pain control and prn antihypertensive. 3. HLD 4. Recently treated for sinusitis - has been on augmentin with no improvement. completed full course of therapy. Abx stopped. 5. Nicotine abuse - patch 6. Hx migraines - pt is insistent that this feels nothing like his prior migraines and he did not have improvement with migraine meds as above. DVT ppx: Lovenox - hold for LP in the AM. DC Planning: LP in the AM. This patient was seen by Stone Rosas PA-C under the supervision of Doctor Rowena. <Rhonda Guaman - Last Filed: 10/31/19 14:02> Vitals/I&O's: Vital Signs Temp Pulse Resp BP Pulse Ox 97.6 F L 91 16 169/84 H 97 10/31/19 13:22 10/31/19 13:22 10/31/19 13:22 10/31/19 13:22 10/31/19 13:22 Oxygen Flow Rate (L/min) 0 Oxygen Delivery Method Room Air Weight: 115.4 kg Body Mass Index (BMI) 38.7 Intake and Output for Last 24 Hours 10/29/19 10/30/19 10/31/19 23:59 23:59 23:59 Intake Total 0 / 0 2259.25 / 2259.25 368 / 368 Balance 0 / 0 2259.25 / 2259.25 368 / 368 Current Medications Albuterol Sulfate (Ventolin Aerosols) 2.5 mg INHALATION Q2H PRN PRN PRN Reason: Shortness of Breath/Wheezing Hydralazine HCl (Apresoline Iv) 10 mg IV Q4H PRN PRN PRN Reason: SBP > 160 Last Admin: 10/30/19 17:07 Dose: 10 mg Documented by: Sodium Chloride () 250 mls @ 15 mls/hr IV .[id number] PRN PRN Reason: Saline Flush Last Infusion: 10/31/19 02:05 Dose: 0 mls/hr Documented by: Sodium Chloride () 250 mls @ 15 mls/hr IV .[id number] PRN PRN Reason: Additional IVPB Infusion Labetalol HCl (Trandate) 40 mg IV Q6H PRN PRN PRN Reason: BLOOD PRESSURE Last Admin: 10/31/19 13:44 Dose: 40 mg Documented by: Melatonin (Melatonin) 3 mg PO QHS PRN PRN PRN Reason: INSOMNIA Nicotine (Nicoderm Cq (Pbkc)) 21 mg TRANSDERM. DAILY [facility] Last Admin: 10/31/19 08:56 Dose: 21 mg Documented by: Ondansetron HCl (Zofran) 4 mg IV Q8H PRN PRN PRN Reason: NAUSEA/VOMITING Senna/Docusate Sodium (Senokot-S, Jocelyn-Colace) 2 tablet PO BID PRN PRN PRN Reason: Constipation Sodium Chloride () 10 - 40 ml IV UD PRN PRN Reason: SALINE FLUSH Last Admin: 10/31/19 13:41 Dose: 10 ml Documented by: STROKE Vital Signs/Narrative: Vital Signs Temp Pulse Resp BP Pulse Ox 10/31/19 13:22 97.6 F L 91 16 169/84 H 97 Assessment/Plan This patient was seen in conjunction with CARYN Anthony. I have independently interviewed and examined the patient and reviewed pertinent historical, laboratory, and other data. Please refer to CARYN Anthony note for his patient's presentation, findings, and recommendations. I have reviewed and his note and concur with his documentation Patient was seen and examined. He still complains of severe right jocelyn-orbital and retro-orbital headache. SOC reconsulted for recommendation, recommended lumbar puncture with pressure readings. Physical Exam: Gen:Comfortable, not pale, not jaundiced, morbidly obese CVS:HS I +II, regular, no murmurs RESP: Diminished at lung bases GI: BS present and normal, soft, nontender, no palpable organs EXT:No edema ASSESSMENT: 1. Intractable headache likely acute migraine 2. Uncontrolled hypertension 3. Morbid obesity 4. Hyperlipidemia 5. Recent sinusitis 6. Nicotine dependence 7. Possible ANÍBAL Plan: Continue on Imitrex, metoclopramide, IV Toradol as needed Morphine IV 2mg x 1 Lumbar puncture planned for outpatient Patient will need sleep study in the outpatient Inpatient E&M: [id number] [facility] Hosp L2
[2019-10-31 13:22] VITALS: BP 169/84; PULSE 91; RESP 16; TEMP 36.4; O2SAT 97
[2019-10-31 15:02] VITALS: BP 157/83; PULSE 90; RESP 16; TEMP 36.4; O2SAT 96
[2019-10-31] MEDS: traMADol 50 MG Tablet PO ×2 (17:05→23:05)
[2019-10-31 22:00] VITALS: BP 156/96; PULSE 77; RESP 18; TEMP 36.8; O2SAT 94
[2019-11-01] VITALS (15 sets, daily range): BP systolic 142–198; BP diastolic 74–110; PULSE 74–92; RESP 16–18; TEMP 36.4–36.6; O2SAT 95–96; BMI 39.3
--- NOTE | 2019-11-01 | FLU_PTH ---
PATIENT: EVARISTO HAYNES LOC: [facility] U#:[id number] AGE/SX: 54/M ROOM: [facility] RE11/01/[address]: Dr. Travis Lua MD : 1965 BED: 1 DIS: 11/02/2019 SPEC #: [id number] RECD: 11/01/19 11:00 STATUS: BENRARDO RECon #: [id number] MARISA: 11/01/19 00:[address]: Stone Rosas DEPT: CYTOLOGY RECD BY: Austyn Weems ENTERED: 11/01/19 13:13 SP TYPE: Fluid OTHR DR: MD Dr. Travis Verdin MD Dr. Ryan Chenevey, MD Kathleen Fearon, Tissues: Cerebrospinal Fluid Procedures: Special Stain Group II Cytospin Fluid HEADER OPERATION: Lumbar puncture PRE-OP DIAGNOSIS: Headaches TISSUE SUBMITTED: Cerebrospinal fluid for cytology DIAGNOSIS CYTOLOGY Cerebrospinal fluid for cytology (cytospin): Acellular specimen. See comment. SJ:fletcher 11/02/19 COMMENT Clinical correlation and appropriate follow up are necessary. CYTOLOGY STUDY Slides are reviewed. CYTOLOGY GROSS Received is 3 ml of clear fluid labeled with the patient's name and and designated per the requisition as CSF. Submitted for cytology preparation. / fletcher 11/01/19 TC:4 CPT: 69917
[2019-11-01 04:10] LABS: Absolute Lymphocyte Count 2.85 X10^3/uL (0.83-4.51); Absolute Neutrophil Count 11.2 X10^3/uL (2.0-7.7); Basophil# 0.03 X10^3/uL; Basophil% 0.2 % (0-1); Eosinophil# 0.29 X10^3/uL; Eosinophils% 1.9 % (0-5); Hematocrit 43.8 % (40-54); Hemoglobin 14.2 g/dL (13.0-16.5); Lymphocyte # 2.85 X10^3/ul (4.0); Lymphocyte % 18.5 % (19-41); Mean Corp Hgb Conc 32.4 g/dL (32-36); Mean Corpuscular Hgb 30.3 pg (27.0-32.0); Mean Corpuscular Volume 93.6 fL (80-94); Monocyte# 0.93 X10^3/uL; NRBC Flagged by Analyzer 0 % (0-5); Neutrophil # 11.23 X10^3/uL (2.7-7.7); Neutrophil % 72.9 % (47-70); Platelet Count 271 K/mm3 (150-450); RBC Distribution Width CV 14.6 % (11.6-14.6); RBC Distribution Width SD 50.1 fl (35.1-43.9); Red Blood Count 4.68 M/mm3 (4.6-6.2); White Blood Count 15.4 K/mm3 (4.4-11.0)
[2019-11-01 04:18] LABS: Prothrombin Time (Protime)PT. 13.1 SECONDS (11.7-14.9)
[2019-11-01 04:19] LABS: Partial Thromboplast Time 27.6 Seconds (24.1-36.2)
[2019-11-01] MEDS: traMADol 50 MG Tablet PO (07:26)
[2019-11-01] MEDS: LORazepam 2 MG/ML Syringe 0.5 MG IV (08:59)
[2019-11-01] MEDS: 0.9% Saline Lock 10 ML Syringe IV ×4 (08:59→20:15)
--- NOTE | 2019-11-01 09:30 | RAD_ITS ---
PROCEDURE: Fluoroscopic guided Lumbar Puncture. DATE: 11/01/2019. CLINICAL INDICATION: Two-week history of headaches. PHYSICIAN: Holger Enriquez M.D. MEDICATIONS: 1% lidocaine administered subcutaneously for local anesthesia. ACCESS SITE: Lower posterior back. NEEDLE: 22-gauge spinal needle. SPECIMEN: 14 mL clear]CSF fluid. FLUOROSCOPY TIME (if supplied): (0:36) minutes/seconds COMPLICATIONS: None immediate. The risks, benefits, and alternatives to the procedure were explained to the patient. The specific risks of bleeding, infection, and neurovascular injury were detailed and accepted. Witnessed informed consent was obtained. The patient was placed on the fluoroscopic table in the prone position. The level for needle entry was determined and marked. The overlying skin was cleaned and prepped in the usual sterile fashion. 2% lidocaine was administered subcutaneously for local anesthesia. Under fluoroscopic guidance a 22-gauge spinal needle was advanced. The thecal sac was entered at the L3- L4 vertebral level. The inner stylet was removed. Opening pressure was 10 mm. There was spontaneous flow of clear CSF fluid. The patient was placed in a reversed Trendelenburg position. Approximately 14 mL of cerebrospinal fluid was collected using gravity. The specimen was collected and submitted to the laboratory for further evaluation. The needle was withdrawn,. Hemostasis was achieved and a sterile dressing placed. The patient tolerated the procedure well without any immediate complications. The patient was placed supine with head elevated and returned to the floor in stable condition. RAD/Fluoro Guided Lumbar Puncture IMPRESSION: Successful fluoroscopic-guided lumbar puncture. Electronically Signed: Holger Enriquez, at 10:31 EDT , Service support ,
[2019-11-01 10:12] LABS: Cytology, Body Fluid / CSF SEE PATHOLOGY REPORT
[2019-11-01] MEDS: Labetalol (Prefilled) 20 MG/4 ML 40 MG IV ×2 (10:34→18:49)
[2019-11-01 10:58] LABS: Glucose Spinal Fluid 60 mg/dL (40-75)
[2019-11-01 11:30] LABS: Lymphocytes,CSF 80 % (40 - 80); Monocytes,CSF 20 % (15 - 45)
[2019-11-01 11:31] LABS: Appearance CSF (character) CLEAR (Clear); CSF Color COLORLESS (Colorless); RBC Count, Spinal Fluid 0 /mm-3 (None seen); Tested Tube # 4
[2019-11-01 11:32] LABS: White Count, CSF 6 /mm-3 (0 - 5)
[2019-11-01 11:33] LABS: Body Fluid QC Type(s) BF1Q,BF2Q
--- NOTE | 2019-11-01 13:57 | DCINST_ITS ---
- Discharge Diagnoses Current Active Problems: Current Active and Chronic Problems (Last Reviewed 10/30/19 @ 05:[address] Eddie Hernandez MD) Idiopathic intracranial hypertension (Acute) Headache (Acute) Periorbital pain (Acute) Pain in periorbital region of right eye (Acute) You will use the following diet at home:: Cardiac Your food should be the consistency of: Regular Your liquids should be the consistency of: Regular/Thin Discharge Activity: Return to Normal Activity Instructions: Lumbar Puncture, Having a Lumbar Puncture Additional Instructions: You may need the dose of Tegretol increased depending on your response. It is essential that you contact your family medicine doctor and follow up within a week to adjust your medication. You will need a tapering dose when it is time to discontinue and this will also need further discussion with your follow up doctors. Allergies/Adverse Reactions: Allergies Sulfa (Sulfonamide Antibiotics) Allergy (Verified 10/29/19 19:11) Other Medications to take at Discharge Amox-Clav 875-125 mg Tablet 1 tab PO BID 10/30/19 Carbamazepine [Tegretol] 100 mg PO BIDCM #14 tab 11/01/19 The following prescriptions were given: Carbamazepine [Tegretol] 100 mg PO BIDCM #14 tab Transmission Status: Pending to [facility]/pharmacy #[id number] Primary Care Physician: María Elena Eubanks DO [Primary Care Provider] - Please follow up with your Primary Care Physician in: 1 week Test Results: Test results from this visit will be discussed in further detail at your follow- up appointment, if applicable. Please Follow Up With: Allan Bailon MD When: 1-2 weeks Proposed Discharge Date: 11/01/19
--- NOTE | 2019-11-01 14:01 | DS.PCM_ITS ---
<Stone Rosas - Last Filed: 11/01/19 14:01> Discharge Date and Diagnosis Date of Admission: 10/29/19 Date of Discharge: 11/01/19 - Primary Discharge Diagnosis Acute Problems: Active Problems (Last Reviewed 10/30/19 @ 05:[address] Eddie Hernandez MD) Headache 2/2 Trigeminal neuralgia pseudotumor cerebri ruled out HTN emergency - Secondary Discharge Diagnosis Chronic Problems: Chronic Problems (Last Reviewed 10/30/19 @ 05:[address] Eddie Hernandez MD) Atherosclerosis of coronary artery of [place] heart without angina pectoris (Chronic) [id number] LAD w/ 3.0 x 18 mm Resolute and Mid LAD w/ 2.5 x 12 mm Resolute 03/01/2017; PCI-JENNY to MID LAD with a 2.5 x 12 mm Promus Synergy and POBA-D2 08/08/18 History of coronary artery stent placement (Chronic 08/08/18) [id number] LAD w/ 3.0 x 18 mm Resolute and Mid LAD w/ 2.5 x 12 mm Resolute 03/01/2017; PCI-JENNY to MID LAD with a 2.5 x 12 mm Promus Synergy and POBA-D2 08/08/18 Essential (primary) hypertension (Chronic) Pure hypercholesterolemia (Chronic) Nicotine dependence (Chronic) Hospital Course and Treatment Imaging Results: 11/01/19 09:30 Fluoro Guided Lumbar Puncture [RAD] AM (NON MEDS) CT/Brain/Head without Contrast IMPRESSION: 1. No acute findings. 2. Probable intracranial hypertension/pseudotumor cerebri. Ophthalmology and neurology referral are advised. CT/Sinus/Facial Bone IMPRESSION: 1. Normal paranasal sinuses without acute or chronic illness. CT/CTA Head AND Neck W/ Contrast IMPRESSION: 1. Technically limited examination. 2. Probably no dural venous sinus thrombosis. Extrinsic fluid dynamic related compression. If definitive assessment is required a dedicated proper technique CT venography of the head only is the study of choice. 3. Patent craniocervical arteries. MRI/Brain W/WO Contrast IMPRESSION: 1. No MRI evidence of acute or subacute ischemic infarct or acute intracranial abnormality. 2. No MRI evidence of enhancing lesions extra-axially and intraaxially. 3. Nonspecific T2 FLAIR hyperintensity foci in the posterior periventricular white matter. They may be secondary to microvascular disease. MRI/MRV Head Without Contrast IMPRESSION: Normal unenhanced MRV of the brain and unchanged when compared to CTA head with contrast 10/29/2019. RAD/Fluoro Guided Lumbar Puncture IMPRESSION: Successful fluoroscopic-guided lumbar puncture. Opening pressure : 10 Consults: Neuro - SOC Opthalmo - Jesus Operations: None Procedures: - - lumbar puncture Summary of Care Provided: Hospital course: The patient is a 54 year old M with pmhx of HTN, migraines, who presented to the ER with c/o severe headache described as pressure behind the right eye with somewhat blurry vision. The patient had CT brain, CTA head and neck, facial xray. The CTA head and neck was suspicious for pseudotumor cerebri. Blood pressure was markedly elevated. He was given home meds + PRN labetalol and hydralazine for his pressures which improved during the course of his stay. The patient was admitted to the PCU and opthalmology and neuro were consulted. Opthalmology exam showed no obvious disc edema, low suspicion for giant cell arteritis. He had no jaw claudication and no arthritis. He had normal ESR and elevated CRP at 5.37. He had an MRI brain and MRV brain which were negative. His headache continued and he was trialed on migraine medication altho he stated this did not feel like a typical migraine. He received solumedrol, reglan, toradol, depakote, imitrex. He trialed oxygen with no improvement. He had some improvement with tramadol. Neuro was reconsulted and felt pseudotumor cerebri was not completely ruled out and recommended an LP to check opening pressure. They felt that if it was elevated he likely has pseudotumor cerebri and would be treated with diamox and if normal then this is more likely trigeminal neuralgia and to treat with tegretol 100 bid. He was taken for LP the following day and had a normal opening pressure. He was placed on tegretol. This may need tapered up to response, and then will need tapered to off when appropriate. He will need close follow up with his PCP in 1 week and with neuro in 1-2 weeks. He was discharged home in stable condition. This patient was seen by Stone Rosas PA-C under the supervision of Doctor Stoney. [] - Physical Exam Vitals/I&O's: Vital Signs Temp Pulse Resp BP Pulse Ox 97.6 F L 80 18 146/94 H 96 11/01/19 12:15 11/01/19 12:15 11/01/19 12:15 11/01/19 12:15 11/01/19 12:15 Oxygen Flow Rate (L/min) 0 Oxygen Delivery Method Room Air Weight: 258 lb 8 oz Body Mass Index (BMI) 39.3 Intake and Output for Last 24 Hours 10/30/19 10/31/19 11/01/19 23:59 23:59 23:59 Intake Total 2259.25 / 2259.25 968 / 1568 1000 / 1000 Balance 2259.25 / 2259.25 968 / 1568 1000 / 1000 General: Alert, Oriented x3, Cooperative HEENT: Atraumatic, PERRLA, EOMI, Normocephalic Neck: Supple, No JVD, Negative Carotid Bruits Lungs: Clear to auscultation, Normal air movement Cardiovascular: Regular rate, No murmurs Abdomen: Bowel Sounds Present, Soft, Non Tender Extremities: No edema, Capillary Refill Less than 3 Seconds Skin: No rashes, No breakdown Musculoskeletal: No Tenderness to Palpation of Joints or Extremities Neurological: Cranial nerves II-XII grossly intact Psych/Mental Status: Normal Affect, Appropriate, Alert and oriented to time, place, person, mood and affect Microbiology Past 72 Hours 11/01/19 09:45 Csf, Spinal Fluid Gram Stain - Final Laboratory Results 11/01/19 04:02: WBC 15.4 H, RBC 4.68, Hgb 14.2, Hct 43.8, MCV 93.6, MCH 30.3, MCHC 32.4 D, RDW Std Deviation 50.1 H, RDW Coeff of Bob 14.6, Plt Count 271, MPV 9.0, Immature Gran % (Auto) 0.500, Neut % (Auto) 72.9 H, Lymph % (Auto) 18.5 L, Parker % (Auto) 6.0, Eos % (Auto) 1.9, Baso % (Auto) 0.2, Absolute Neuts (auto) 11.2 H, Absolute Lymphs (auto) 2.85, Nucleated RBC % 0 11/01/19 04:02: PT 13.1, INR 1.0, APTT 27.6 11/01/19 09:45: CSF Glucose 60, CSF Total Protein 34.0 11/01/19 09:45: CSF VZV DNA (PCR) Pending, HSV I DNA PCR Pending, HSV II DNA PCR Pending 11/01/19 09:45: CSF Appearance CLEAR, CSF Color COLORLESS, CSF WBC 6 H, CSF RBC 0, CSF Cell Count Tube # 4, CSF Total Cell Counted Not Reportable, CSF Lymphocytes 80, CSF Monocytes 20, CSF Comment May follow 11/01/19 09:45: Miscellaneous Cytology Pending Current Medications Albuterol Sulfate (Ventolin Aerosols) 2.5 mg INHALATION Q2H PRN PRN PRN Reason: Shortness of Breath/Wheezing Hydralazine HCl (Apresoline Iv) 10 mg IV Q4H PRN PRN PRN Reason: SBP > 160 Last Admin: 10/30/19 17:07 Dose: 10 mg Documented by: Sodium Chloride () 250 mls @ 15 mls/hr IV .[id number] PRN PRN Reason: Saline Flush Last Infusion: 10/31/19 02:05 Dose: 0 mls/hr Documented by: Sodium Chloride () 250 mls @ 15 mls/hr IV .[id number] PRN PRN Reason: Additional IVPB Infusion Labetalol HCl (Trandate) 40 mg IV Q6H PRN PRN PRN Reason: BLOOD PRESSURE Last Admin: 11/01/19 10:34 Dose: 40 mg Documented by: Melatonin (Melatonin) 3 mg PO QHS PRN PRN PRN Reason: INSOMNIA Nicotine (Nicoderm Cq (Pbkc)) 21 mg TRANSDERM. DAILY FANNIE Last Admin: 11/01/19 10:34 Dose: 21 mg Documented by: Ondansetron HCl (Zofran) 4 mg IV Q8H PRN PRN PRN Reason: NAUSEA/VOMITING Senna/Docusate Sodium (Senokot-S, Jocelyn-Colace) 2 tablet PO BID PRN PRN PRN Reason: Constipation Sodium Chloride () 10 - 40 ml IV UD PRN PRN Reason: SALINE FLUSH Last Admin: 11/01/19 08:59 Dose: 10 ml Documented by: Tramadol HCl (Ultram) 50 mg PO Q6H PRN PRN PRN Reason: Pain Score 4-10/10 Last Admin: 11/01/19 07:26 Dose: 50 mg Documented by: Discharge Diet: Low fat/ Low Cholesterol, 2000 mg Sodium Diet Discharge Activity: Return to Normal Activity Home Medications: Medications to take at Discharge Carbamazepine [Tegretol] 100 mg PO BIDCM #14 tab 11/01/19 Hydrochlorothiazide [Hctz] 25 mg PO DAILY #30 tab 11/02/19 Ketorolac [Toradol] 10 mg PO Q6H PRN #20 tab 11/02/19 Losartan Potassium [Cozaar] 50 mg PO DAILY #30 tab 11/02/19 hydrALAZINE [Apresoline] 50 mg PO TID #90 tab 11/02/19 Following Prescriptions Were Given to Patient: hydrALAZINE [Apresoline] 50 mg PO TID #90 tab Transmission Status: Received by [id number] Losartan Potassium [Cozaar] 50 mg PO DAILY #30 tab Transmission Status: Received by [id number] Hydrochlorothiazide [Hctz] 25 mg PO DAILY #30 tab Transmission Status: Received by [id number] Carbamazepine [Tegretol] 100 mg PO BIDCM #14 tab Transmission Status: Received by [id number] Ketorolac [Toradol] 10 mg PO Q6H PRN #20 tab PRN Reason: Pain Score 6-10/10 Transmission Status: Received by [id number] Primary Care Physician: María Elena Eubanks DO [Primary Care Provider] - Please follow up with your Primary Care Physician in: 1 week Please Follow Up With: Allan Bailon MD When: 1-2 weeks Patient Instructions: Lumbar Puncture, Having a Lumbar Puncture Disposition: Home Minutes spent on discharge:: 35 Patient Condition:: Stable Medical Necessity - Tobacco Use Smoking Status: Current every day smoker Tobacco Use: Cigarettes Meaningful Use Info Meaningful Use Diagnoses (Choose all that apply): None applicable <Travis Lua - Last Filed: 11/02/19 14:05> Discharge Date and Diagnosis - Secondary Discharge Diagnosis Chronic Problems: Chronic Problems (Last Updated 11/01/19 @ 14:00 by Stone RUBIN, PA) Atherosclerosis of coronary artery of [place] heart without angina pectoris (Chronic) [id number] LAD w/ 3.0 x 18 mm Resolute and Mid LAD w/ 2.5 x 12 mm Resolute 03/01/2017; PCI-JENNY to MID LAD with a 2.5 x 12 mm Promus Synergy and POBA-D2 08/08/18 History of coronary artery stent placement (Chronic 08/08/18) [id number] LAD w/ 3.0 x 18 mm Resolute and Mid LAD w/ 2.5 x 12 mm Resolute 03/01/2017; PCI-JENNY to MID LAD with a 2.5 x 12 mm Promus Synergy and POBA-D2 08/08/18 Essential (primary) hypertension (Chronic) Pure hypercholesterolemia (Chronic) Nicotine dependence (Chronic) Hospital Course and Treatment Summary of Care Provided: Please see discharge summary of 11/01. Patient was not discharged on 11/01 as blood pressure was high. [] - Physical Exam Vitals/I&O's: Vital Signs Temp Pulse Resp BP Pulse Ox 97.7 F L 80 16 166/109 H 95 11/02/19 13:34 11/02/19 13:53 11/02/19 13:34 11/02/19 13:53 11/02/19 13:34 Oxygen Flow Rate (L/min) 0 Oxygen Delivery Method Room Air Weight: 258 lb 8 oz Body Mass Index (BMI) 39.3 Intake and Output for Last 24 Hours 10/31/19 11/01/19 11/02/19 23:59 23:59 23:59 Intake Total 968 / 1568 1400 / 1400 550 / 550 Balance 968 / 1568 1400 / 1400 550 / 550 Microbiology Past 72 Hours 11/01/19 09:45 Csf, Spinal Fluid Gram Stain - Final 11/01/19 09:45 Csf, Spinal Fluid CSF Culture - Preliminary No growth in 24 hours. Final to follow. Current Medications Acetaminophen (Tylenol) 650 mg PO Q4H PRN PRN PRN Reason: pain 1-12/01, fever Last Admin: 11/02/19 09:09 Dose: 650 mg Documented by: Albuterol Sulfate (Ventolin Aerosols) 2.5 mg INHALATION Q2H PRN PRN PRN Reason: Shortness of Breath/Wheezing Carbamazepine (Tegretol) 100 mg PO BIDCM FANNIE Last Admin: 11/02/19 09:06 Dose: 100 mg Documented by: Hydralazine HCl (Apresoline Iv) 10 mg IV Q4H PRN PRN PRN Reason: SBP > 160 Last Admin: 11/01/19 14:37 Dose: 10 mg Documented by: Hydralazine HCl (Apresoline) 50 mg PO TID REPLACED BY [facility] Last Admin: 11/02/19 13:53 Dose: 50 mg Documented by: Hydrochlorothiazide (Hctz) 25 mg PO DAILY REPLACED BY [facility] Last Admin: 11/02/19 09:06 Dose: 25 mg Documented by: Sodium Chloride () 250 mls @ 15 mls/hr IV .[id number] PRN PRN Reason: Saline Flush Last Infusion: 10/31/19 02:05 Dose: 0 mls/hr Documented by: Sodium Chloride () 250 mls @ 15 mls/hr IV .[id number] PRN PRN Reason: Additional IVPB Infusion Labetalol HCl (Trandate) 40 mg IV Q6H PRN PRN PRN Reason: BLOOD PRESSURE Last Admin: 11/01/19 18:49 Dose: 40 mg Documented by: Losartan Potassium (Cozaar) 50 mg PO DAILY REPLACED BY [facility] Last Admin: 11/02/19 10:42 Dose: 50 mg Documented by: Melatonin (Melatonin) 3 mg PO QHS PRN PRN PRN Reason: INSOMNIA Nicotine (Nicoderm Cq (Pbkc)) 21 mg TRANSDERM. DAILY REPLACED BY [facility] Last Admin: 11/02/19 09:06 Dose: 21 mg Documented by: Ondansetron HCl (Zofran) 4 mg IV Q8H PRN PRN PRN Reason: NAUSEA/VOMITING Senna/Docusate Sodium (Senokot-S, Jocelyn-Colace) 2 tablet PO BID PRN PRN PRN Reason: Constipation Sodium Chloride () 10 - 40 ml IV UD PRN PRN Reason: SALINE FLUSH Last Admin: 11/01/19 20:15 Dose: 10 ml Documented by:
[2019-11-01] MEDS: hydrALAZINE 20 MG/ML Vial 10 MG IV (14:37)
--- NOTE | 2019-11-01 16:11 | PN_ITS ---
<Stone Rosas - Last Filed: 11/01/19 16:11> Patient Problems: Active and Suspected Problems (Last Updated 11/01/19 @ 14:00 by CARYN Barrientos) Trigeminal neuralgia (Acute) Headache (Acute) Periorbital pain (Acute) Pain in periorbital region of right eye (Acute) Reason for Visit: HTN, Headache Subjective: Pt had negative LP today - normal opening pressure. Pt reports severe headache. He is resting comfortably in bed NAD. He has no other complaints. He refused norvasc stating that in the past it has given him headaches. Vitals/I&O's: Vital Signs Temp Pulse Resp BP Pulse Ox 97.6 F L 80 18 198/105 H 95 11/01/19 14:30 11/01/19 14:37 11/01/19 14:30 11/01/19 16:03 11/01/19 14:30 Oxygen Flow Rate (L/min) 0 Oxygen Delivery Method Room Air Weight: 258 lb 8 oz Body Mass Index (BMI) 39.3 Intake and Output for Last 24 Hours 10/30/19 10/31/19 11/01/19 23:59 23:59 23:59 Intake Total 2259.25 / 2259.25 968 / 1568 1000 / 1000 Balance 2259.25 / 2259.25 968 / 1568 1000 / 1000 General: Alert, Oriented x3, Cooperative HEENT: Atraumatic, PERRLA, EOMI, Normocephalic Neck: Supple, No JVD, Negative Carotid Bruits Lungs: Clear to auscultation, Normal air movement Cardiovascular: Regular rate, No murmurs Abdomen: Bowel Sounds Present, Soft, Non Tender Extremities: No edema, Capillary Refill Less than 3 Seconds Skin: No rashes, No breakdown Musculoskeletal: No Tenderness to Palpation of Joints or Extremities Neurological: Cranial nerves II-XII grossly intact Psych/Mental Status: Normal Affect, Appropriate, Alert and oriented to time, place, person, mood and affect Microbiology Past 72 Hours 11/01/19 09:45 Csf, Spinal Fluid Gram Stain - Final Laboratory Results 11/01/19 04:02: WBC 15.4 H, RBC 4.68, Hgb 14.2, Hct 43.8, MCV 93.6, MCH 30.3, MCHC 32.4 D, RDW Std Deviation 50.1 H, RDW Coeff of Bob 14.6, Plt Count 271, MPV 9.0, Immature Gran % (Auto) 0.500, Neut % (Auto) 72.9 H, Lymph % (Auto) 18.5 L, [place] % (Auto) 6.0, Eos % (Auto) 1.9, Baso % (Auto) 0.2, Absolute Neuts (auto) 11.2 H, Absolute Lymphs (auto) 2.85, Nucleated RBC % 0 11/01/19 04:02: PT 13.1, INR 1.0, APTT 27.6 11/01/19 09:45: CSF Glucose 60, CSF Total Protein 34.0 11/01/19 09:45: CSF VZV DNA (PCR) Pending, HSV I DNA PCR Pending, HSV II DNA PCR Pending 11/01/19 09:45: CSF Appearance CLEAR, CSF Color COLORLESS, CSF WBC 6 H, CSF RBC 0, CSF Cell Count Tube # 4, CSF Total Cell Counted Not Reportable, CSF Lymphocytes 80, CSF Monocytes 20, CSF Comment May follow 11/01/19 09:45: Miscellaneous Cytology Pending Current Medications Albuterol Sulfate (Ventolin Aerosols) 2.5 mg INHALATION Q2H PRN PRN PRN Reason: Shortness of Breath/Wheezing Hydralazine HCl (Apresoline Iv) 10 mg IV Q4H PRN PRN PRN Reason: SBP > 160 Last Admin: 11/01/19 14:37 Dose: 10 mg Documented by: Hydralazine HCl (Apresoline) 50 mg PO TID FANNIE Hydrochlorothiazide (Hctz) 25 mg PO DAILY FANNIE Sodium Chloride () 250 mls @ 15 mls/hr IV .[id number] PRN PRN Reason: Saline Flush Last Infusion: 10/31/19 02:05 Dose: 0 mls/hr Documented by: Sodium Chloride () 250 mls @ 15 mls/hr IV .[id number] PRN PRN Reason: Additional IVPB Infusion Labetalol HCl (Trandate) 40 mg IV Q6H PRN PRN PRN Reason: BLOOD PRESSURE Last Admin: 11/01/19 10:34 Dose: 40 mg Documented by: Melatonin (Melatonin) 3 mg PO QHS PRN PRN PRN Reason: INSOMNIA Nicotine (Nicoderm Cq (Pbkc)) 21 mg TRANSDERM. DAILY FANNIE Last Admin: 11/01/19 10:34 Dose: 21 mg Documented by: Ondansetron HCl (Zofran) 4 mg IV Q8H PRN PRN PRN Reason: NAUSEA/VOMITING Senna/Docusate Sodium (Senokot-S, Jocelyn-Colace) 2 tablet PO BID PRN PRN PRN Reason: Constipation Sodium Chloride () 10 - 40 ml IV UD PRN PRN Reason: SALINE FLUSH Last Admin: 11/01/19 14:37 Dose: 10 ml Documented by: Tramadol HCl (Ultram) 50 mg PO Q6H PRN PRN PRN Reason: Pain Score 4-10/10 Last Admin: 11/01/19 07:26 Dose: 50 mg Documented by: STROKE Vital Signs/Narrative: Vital Signs Temp Pulse Resp BP BP Pulse Ox 11/01/19 16:03 198/105 H 11/01/19 14:37 80 11/01/19 14:30 97.6 F L 80 18 174/105 H 95 11/01/19 12:15 97.6 F L 80 18 146/94 H 96 Medical Necessity - Tobacco Use Smoking Status: Current every day smoker Tobacco Use: Cigarettes Assessment/Plan All Active Problems (Last Updated 11/01/19 @ 14:00 by Stone RUBIN, PA) Trigeminal neuralgia (Acute) Idiopathic intracranial hypertension (Acute) Headache (Acute) Periorbital pain (Acute) Pain in periorbital region of right eye (Acute) Non-ST elevation (NSTEMI) myocardial infarction (Resolved 02/2017) Unstable angina (Resolved) 1. Intractable headache - suspected trigeminal neuralgia. pseudotumor cerebri ruled out with LP showing normal opening pressure. Per neuro this is likely trigeminal neuralgia and start tegretol 100 bid. This may need further adjustment with his PCP at follow up, will also need Neuro follow up. -he reports severe pain but does not appear in any distress -checked [place] report, 3 rx from 3 diff providers within past year (oxycodone x2, codeine), overdose score is 360, would not advise using any opiates. 2. HTN emergency - uncontrolled - Systolic 198 despite hydralazine and labetalol. He refused norvasc stating it gives him headaches. Started HCTZ and PO hydralazine. Consider adding SYLVESTER/ARB. Will wait to see how he responds. He was not actively taking any BP meds at home despite having a hx of HTN. 3. HLD - not on agents for this 4. Recently treated for sinusitis - has been on augmentin with no improvement. completed full course of therapy. Abx stopped. 5. Nicotine abuse - patch 6. Hx migraines - pt is insistent that this feels nothing like his prior migrai diego and he did not have improvement with multiple migraine agents started here. DVT ppx: Lovenox - hold for LP in the AM. DC Planning: Pt kept for uncontrolled BP. This patient was seen by Stone Rosas PA-C under the supervision of Doctor Stoney <Travis Lua - Last Filed: 11/01/19 16:39> Reason for Visit: Uncontrolled hypertension, hypertensive urgency. Headache mainly right retro- orbital. Objective: Seen and examined. Patient states headache mainly right retro-orbital area 7/10 intensity. History of headache is not reliable as he states intermittent type, sometimes constant sometimes sharp but patient is comfortable and eating his meal. LP was done. Blood pressure elevated. In the morning it was 146/94 but currently 198/105 and therefore discharge was canceled. Physical exam General: Alert, Oriented x3, Cooperative, morbid obesity, BMI 39.3 kg/m? HEENT: Atraumatic, PERRLA, EOMI, Normocephalic Oral: No Gingival or Mucosal Lesions/ Ulcerations Neck: Supple, No JVD, Negative Carotid Bruits Lungs: Air entry diminished in bilateral lung bases. No crepitation/rhonchi Cardiovascular: Regular rate, Regular Rhythm, Normal S1, Normal S2, No murmurs Abdomen: Bowel Sounds Present, Soft, Non Tender, Non-Distended : No renal angle tenderness. No suprapubic tenderness. Extremities: No edema, Capillary Refill Less than 3 Seconds Skin: No rashes, No breakdown Musculoskeletal: No Tenderness to Palpation of Joints or Extremities Neurological: Cranial nerves II-XII grossly intact, Deep Tendon Reflexes 2+/4 and Symmetrical, Neuro grossly intact Psych/Mental Status: Normal Affect, Appropriate. Vitals/I&O's: Vital Signs Temp Pulse Resp BP Pulse Ox 97.6 F L 80 18 198/105 H 95 11/01/19 14:30 11/01/19 16:23 11/01/19 14:30 11/01/19 16:03 11/01/19 14:30 Oxygen Flow Rate (L/min) 0 Oxygen Delivery Method Room Air Weight: 258 lb 8 oz Body Mass Index (BMI) 39.3 Intake and Output for Last 24 Hours 10/30/19 10/31/19 11/01/19 23:59 23:59 23:59 Intake Total 2259.25 / 2259.25 968 / 1568 1000 / 1000 Balance 2259.25 / 2259.25 968 / 1568 1000 / 1000 Microbiology Past 72 Hours 11/01/19 09:45 Csf, Spinal Fluid Gram Stain - Final Laboratory Results 11/01/19 04:02: WBC 15.4 H, RBC 4.68, Hgb 14.2, Hct 43.8, MCV 93.6, MCH 30.3, MCHC 32.4 D, RDW Std Deviation 50.1 H, RDW Coeff of Bob 14.6, Plt Count 271, MPV 9.0, Immature Gran % (Auto) 0.500, Neut % (Auto) 72.9 H, Lymph % (Auto) 18.5 L, [place] % (Auto) 6.0, Eos % (Auto) 1.9, Baso % (Auto) 0.2, Absolute Neuts (auto) 11.2 H, Absolute Lymphs (auto) 2.85, Nucleated RBC % 0 11/01/19 04:02: PT 13.1, INR 1.0, APTT 27.6 11/01/19 09:45: CSF Glucose 60, CSF Total Protein 34.0 11/01/19 09:45: CSF VZV DNA (PCR) Pending, HSV I DNA PCR Pending, HSV II DNA PCR Pending 11/01/19 09:45: CSF Appearance CLEAR, CSF Color COLORLESS, CSF WBC 6 H, CSF RBC 0, CSF Cell Count Tube # 4, CSF Total Cell Counted Not Reportable, CSF Lymphocytes 80, CSF Monocytes 20, CSF Comment May follow 11/01/19 09:45: Miscellaneous Cytology Pending Current Medications Albuterol Sulfate (Ventolin Aerosols) 2.5 mg INHALATION Q2H PRN PRN PRN Reason: Shortness of Breath/Wheezing Carbamazepine (Tegretol) 100 mg PO BIDCM [facility] Hydralazine HCl (Apresoline Iv) 10 mg IV Q4H PRN PRN PRN Reason: SBP > 160 Last Admin: 11/01/19 14:37 Dose: 10 mg Documented by: Hydralazine HCl (Apresoline) 50 mg PO TID [facility] Last Admin: 11/01/19 16:23 Dose: 50 mg Documented by: Hydrochlorothiazide (Hctz) 25 mg PO DAILY [facility] Last Admin: 11/01/19 16:23 Dose: 25 mg Documented by: Sodium Chloride () 250 mls @ 15 mls/hr IV .[id number] PRN PRN Reason: Saline Flush Last Infusion: 10/31/19 02:05 Dose: 0 mls/hr Documented by: Sodium Chloride () 250 mls @ 15 mls/hr IV .[id number] PRN PRN Reason: Additional IVPB Infusion Labetalol HCl (Trandate) 40 mg IV Q6H PRN PRN PRN Reason: BLOOD PRESSURE Last Admin: 11/01/19 10:34 Dose: 40 mg Documented by: Melatonin (Melatonin) 3 mg PO QHS PRN PRN PRN Reason: INSOMNIA Nicotine (Nicoderm Cq (Pbkc)) 21 mg TRANSDERM. DAILY [facility] Last Admin: 11/01/19 10:34 Dose: 21 mg Documented by: Ondansetron HCl (Zofran) 4 mg IV Q8H PRN PRN PRN Reason: NAUSEA/VOMITING Senna/Docusate Sodium (Senokot-S, Jocelyn-Colace) 2 tablet PO BID PRN PRN PRN Reason: Constipation Sodium Chloride () 10 - 40 ml IV UD PRN PRN Reason: SALINE FLUSH Last Admin: 11/01/19 14:37 Dose: 10 ml Documented by: STROKE Vital Signs/Narrative: Vital Signs Temp Pulse Resp BP BP Pulse Ox 11/01/19 16:23 80 11/01/19 16:03 198/105 H 11/01/19 14:37 80 11/01/19 14:30 97.6 F L 80 18 174/105 H 95 Assessment/Plan This patient was seen in conjunction with Stone RUBIN. I have independently interviewed and examined the patient and reviewed pertinent history, examination findings, laboratory and plan of management. I have reviewed the note and agree with the documented findings with the few additional points. In brief, patient is 54 question gentleman admitted with intractable headache. LP shows normal opening pressure. Patient was also seen by integration assistant. There is low suspicion idiopathic orbital inflammatory syndrome as patient does not have pain on extraocular movement. Patient further had lumbar puncture which shows normal opening pressure. Patient on Tegretol 100 mg p.o. twice daily. Further follow-up with ophthalmology as an outpatient. Uncontrolled hypertension, hypertensive urgency: On IV hydralazine and labet alol. On HCTZ. Losartan added. Other comorbidities include dyslipidemia, secondary to smoking/nicotine use and dependence and history of migraine. Patient states his headache is not migraine type and he did not had improvement with multiple migraine agents during the hospital stay. I have discussed my assessment with Stone RUBIN and orders have been reviewed. Clinical Impression(s) from Imaging Studies Brain CT 10/29/19 19:28 IMPRESSION: 1. No acute findings. 2. Probable intracranial hypertension/pseudotumor cerebri. Ophthalmology and neurology referral are advised. Electronically Signed: Jalil Vicente, at 20:02 EDT Tel , Service support , Facial/Sinus 10/29/19 19:28 IMPRESSION: 1. Normal paranasal sinuses without acute or chronic illness. Electronically Signed: Jalil Vicente, at 20:04 EDT Tel , Service support , Head/Neck CTA 10/29/19 21:16 IMPRESSION: 1. Technically limited examination. 2. Probably no dural venous sinus thrombosis. Extrinsic fluid dynamic related compression. If definitive assessment is required a dedicated proper technique CT venography of the head only is the study of choice. 3. Patent craniocervical arteries. Electronically Signed: Jalil Vicente at 22:06 EDT Tel , Service support , Brain MRI 10/30/19 09:00 IMPRESSION: 1. No MRI evidence of acute or subacute ischemic infarct or acute intracranial abnormality. 2. No MRI evidence of enhancing lesions extra-axially and intraaxially. 3. Nonspecific T2 FLAIR hyperintensity foci in the posterior periventricular white matter. They may be secondary to microvascular disease. Electronically Signed: Patric Ovalle MD at 11:54 EDT , Service support , Brain MRI 10/30/19 09:00 IMPRESSION: Normal unenhanced MRV of the brain and unchanged when compared to CTA head with contrast 10/29/2019. Electronically Signed: Patric Ovalle MD at 11:57 EDT , Service support , Lumbar Puncture Fluoroscopy 11/01/19 09:30 IMPRESSION: Successful fluoroscopic-guided lumbar puncture. Electronically Signed: Holger Enriquez, at 10:31 EDT , Service support , Inpatient E&M: [id number] Subs Hosp L3
[2019-11-01] MEDS: hydroCHLOROthiazide 25 MG Tablet PO (16:23)
[2019-11-01] MEDS: hydrALAZINE 50 MG Tablet PO ×2 (16:23→21:16)
[2019-11-01] MEDS: carBAMazepine 200 MG Tablet 100 MG PO (17:25)
[2019-11-01] MEDS: Losartan Potassium 50 MG Tablet PO (17:27)
[2019-11-01] MEDS: Ketorolac 30 MG/ML Syringe IV (20:15)
[2019-11-01] MEDS: Acetaminophen 325 MG Tablet 650 MG PO (21:16)
[2019-11-02 02:52] VITALS: BP 148/88; PULSE 72; RESP 16; TEMP 36.3; O2SAT 95
[2019-11-02] MEDS: Acetaminophen 325 MG Tablet 650 MG PO ×2 (02:56→09:09)
[2019-11-02 06:03] VITALS: PULSE 72
[2019-11-02] MEDS: hydrALAZINE 50 MG Tablet PO ×2 (06:03→13:53)
[2019-11-02 08:24] VITALS: BP 159/97; PULSE 73; RESP 12; TEMP 36.4; O2SAT 95
[2019-11-02] MEDS: carBAMazepine 200 MG Tablet 100 MG PO (09:06)
[2019-11-02] MEDS: hydroCHLOROthiazide 25 MG Tablet PO (09:06)
[2019-11-02] MEDS: Losartan Potassium 100 MG Tablet 50 MG PO (10:42)
--- NOTE | 2019-11-02 11:00 | CASEMGMT ---
PAULINA AGUILAR assessment: Face to Face with patient for initial transition planning/care coordination assessment. PAULINA AGUILAR introduced self and role at [facility], pt voices understanding and consents to assessment at this time. Pt is lying in bed in no distress at this time. Pt is A/Ox4 at this time and answers all questions appropriately at this time. Care providers, pharmacy, and demographics verified at this time. Presentation: Pt states recent sinus infection w/ antibx. got better, but now worse. C/O MCGOWAN on right side, blurred vision, throbbing in right sinus Admitting dx: Intractable MCGOWAN PCP: Raimundo Specialists: Bertrand, cardio [facility]erred [facility]acy: [facility] Insurance: [employer] Prescription Benefit: [employer] Living Will/HPOA: Pt states does not have LW/HPOA and declines AD info at this time. LNOK: Belkis Nicholson, aunt; Hany Velazquez, brother Living Arrangements: Pt states lives alone in 2 story home and states no concerns at home at this time. Pt states is independent with ADL's. Transportation: Pt states drives self and states no transportation concerns at this time. DME/HHC: Pt states no current DME or need for any at this time. Pt states no hx of HHC or SNF in the past. Pt states no concerns with going home at time of discharge. Pt states is retired. Pt states smokes a pack/day of cigarettes and does not drink ETOH. Pt states no further concerns/needs at this time. CM to follow for any further discharge planning/needs. Advised pt to ask for CM if any further questions/concerns/needs arise, voices understanding. Pt Goal: Home Plan: [place] PAULINA AGUILAR
--- NOTE | 2019-11-02 11:40 | DCINST_ITS ---
- Discharge Diagnoses Current Active Problems: Current Active and Chronic Problems (Last Updated 11/01/19 @ 14:00 by CARYN Barrientos) Headache (Acute) Periorbital pain (Acute) Pain in periorbital region of right eye (Acute) You will use the following diet at home:: Cardiac Discharge Activity: Return to Normal Activity Call your doctor if you observe: Shortness of breath, Dizziness, Fainting spells, Chest pain Instructions: Lumbar Puncture, Having a Lumbar Puncture Allergies/Adverse Reactions: Allergies Sulfa (Sulfonamide Antibiotics) Allergy (Verified 10/29/19 19:11) Other Medications to take at Discharge Carbamazepine [Tegretol] 100 mg PO BIDCM #14 tab 11/01/19 Hydrochlorothiazide [Hctz] 25 mg PO DAILY #30 tab 11/02/19 Ketorolac [Toradol] 10 mg PO Q6H PRN #20 tab 11/02/19 Losartan Potassium [Cozaar] 50 mg PO DAILY #30 tab 11/02/19 hydrALAZINE [Apresoline] 50 mg PO TID #90 tab 11/02/19 The following prescriptions were given: hydrALAZINE [Apresoline] 50 mg PO TID #90 tab Transmission Status: [id number] Losartan Potassium [Cozaar] 50 mg PO DAILY #30 tab Transmission Status: [facility]ending [id number] Hydrochlorothiazide [Hctz] 25 mg PO DAILY #30 tab Transmission Status: Pending [id number] Carbamazepine [Tegretol] 100 mg PO BIDCM #14 tab Transmission Status: Received by [id number] Ketorolac [Toradol] 10 mg PO Q6H PRN #20 tab PRN Reason: Pain Score 6-10/10 Transmission Status: [id number] Primary Care Physician: María Elena Eubanks DO [Primary Care Provider] - Please follow up with your Primary Care Physician in: 1 week Test Results: Test results from this visit will be discussed in further detail at your follow- up appointment, if applicable. Please Follow Up With: Allan Bailon MD When: 1-2 weeks Proposed Discharge Date: 11/01/19
[2019-11-02] MEDS: dexAMETHasone 10 MG/ML Vial IV (11:51)
[2019-11-02 13:34] VITALS: BP 166/109; PULSE 80; RESP 16; TEMP 36.5; O2SAT 95
--- NOTE | 2019-11-02 13:36 | PCM.DC.SUM ---
<Raquel Sarmiento LIFE ASSURANCE REPRESENTATIVE - Last Filed: 11/02/19 13:47> Discharge Date and Diagnosis Date of Admission: 10/29/19 Date of Discharge: 11/02/19 - Primary Discharge Diagnosis Acute Problems: Active Problems (Last Updated 11/01/19 @ 14:00 by CARYN Barrientos) 1. Intractable headache 2. Hypertensive urgency 3. Hyperlipidemia 4. Recent sinusitis 5. Tobacco dependence 6. History of migraines - Secondary Discharge Diagnosis Chronic Problems: Chronic Problems (Last Updated 11/01/19 @ 14:00 by Stone RUBIN PA) Atherosclerosis of coronary artery of [place] heart without angina pectoris (Chronic) [id number] LAD w/ 3.0 x 18 mm Resolute and Mid LAD w/ 2.5 x 12 mm Resolute 03/01/2017; PCI-JENNY to MID LAD with a 2.5 x 12 mm Promus Synergy and POBA-D2 08/08/18 History of coronary artery stent placement (Chronic 08/08/18) [id number] LAD w/ 3.0 x 18 mm Resolute and Mid LAD w/ 2.5 x 12 mm Resolute 03/01/2017; PCI-JENNY to MID LAD with a 2.5 x 12 mm Promus Synergy and POBA-D2 08/08/18 Essential (primary) hypertension (Chronic) Pure hypercholesterolemia (Chronic) Nicotine dependence (Chronic) Hospital Course and Treatment Imaging Results: Diagnostic Data Brain CT 10/29/19 19:28 IMPRESSION: 1. No acute findings. 2. Probable intracranial hypertension/pseudotumor cerebri. Ophthalmology and neurology referral are advised. Electronically Signed: Jalil Vicente, at 20:02 EDT Tel , Service support , Facial/Sinus 10/29/19 19:28 IMPRESSION: 1. Normal paranasal sinuses without acute or chronic illness. Electronically Signed: Jalil Vicente, at 20:04 EDT Tel , Service support , Head/Neck CTA 10/29/19 21:16 IMPRESSION: 1. Technically limited examination. 2. Probably no dural venous sinus thrombosis. Extrinsic fluid dynamic related compression. If definitive assessment is required a dedicated proper technique CT venography of the head only is the study of choice. 3. Patent craniocervical arteries. Electronically Signed: Jalil Vicente, at 22:06 EDT Tel , Service support , Brain MRI 10/30/19 09:00 IMPRESSION: Normal unenhanced MRV of the brain and unchanged when compared to CTA head with contrast 10/29/2019. Electronically Signed: Patric Ovalle MD at 11:57 EDT , Service support , Lumbar Puncture Fluoroscopy 11/01/19 09:30 IMPRESSION: Successful fluoroscopic-guided lumbar puncture. Electronically Signed: Holger Enriquez, at 10:31 EDT , Service support , Ophthalmology SOC neurology Operations: None Procedures: None Summary of Care Provided: The patient is a 54 year old M admitted 10/29/2019 due to headache. 1. Intractable atypical right orbital headache-Ophthalmology and neurology evaluation during admission. Possible atypical presentation of trigeminal neuralgia. Continue Tegretol 100 mg twice daily. No significant concerns per ophthalmology. Outpatient follow-up. Brain MRI normal. Lumbar puncture showed normal opening pressure. Follow-up with neurology in 1 to 2 weeks. 2. Hypertensive urgency-significantly elevated during admission, systolically 190s. Previously on amlodipine which was discontinued. Blood pressure now improved. Continue losartan, hydrochlorothiazide and hydralazine. Outpatient follow-up with PCP for further monitoring. 3. Hyperlipidemia-continue statin. 4. Recent sinusitis-completed treatment with Augmentin. 5. Tobacco dependence-encouraged cessation. 6. History of migraines-not on regimen. Outpatient follow-up with neurology. Patient seen and examined prior to discharge. Physical assessment as noted below. Patient is stable for discharge with follow up recommendations as noted above. This patient was seen by MERCEDES Duggan under the supervision of Dr. Lua. - Physical Exam Vitals/I&O's: Vital Signs Temp Pulse Resp BP Pulse Ox 97.7 F L 80 16 166/109 H 95 11/02/19 13:34 11/02/19 13:34 11/02/19 13:34 11/02/19 13:34 11/02/19 13:34 Oxygen Flow Rate (L/min) 0 Oxygen Delivery Method Room Air Weight: 258 lb 8 oz Body Mass Index (BMI) 39.3 Intake and Output for Last 24 Hours 10/31/19 11/01/19 11/02/19 23:59 23:59 23:59 Intake Total 968 / 1568 1400 / 1400 550 / 550 Balance 968 / 1568 1400 / 1400 550 / 550 General: Alert, Oriented x3, Cooperative HEENT: Atraumatic, PERRLA, EOMI, Normocephalic Neck: Supple, No JVD, Negative Carotid Bruits Lungs: Clear to auscultation, Normal air movement Cardiovascular: Regular rate, No murmurs Abdomen: Bowel Sounds Present, Soft, Non Tender Extremities: No edema, Capillary Refill Less than 3 Seconds Skin: No rashes, No breakdown Musculoskeletal: No Tenderness to Palpation of Joints or Extremities Neurological: Cranial nerves II-XII grossly intact Psych/Mental Status: Normal Affect, Appropriate Microbiology Past 72 Hours 11/01/19 09:45 Csf, Spinal Fluid Gram Stain - Final 11/01/19 09:45 Csf, Spinal Fluid CSF Culture - Preliminary No growth in 24 hours. Final to follow. Current Medications Acetaminophen (Tylenol) 650 mg PO Q4H PRN PRN PRN Reason: pain 1-12/01, fever Last Admin: 11/02/19 09:09 Dose: 650 mg Documented by: Albuterol Sulfate (Ventolin Aerosols) 2.5 mg INHALATION Q2H PRN PRN PRN Reason: Shortness of Breath/Wheezing Carbamazepine (Tegretol) 100 mg PO BIDCM [facility] Last Admin: 11/02/19 09:06 Dose: 100 mg Documented by: Hydralazine HCl (Apresoline Iv) 10 mg IV Q4H PRN PRN PRN Reason: SBP > 160 Last Admin: 11/01/19 14:37 Dose: 10 mg Documented by: Hydralazine HCl (Apresoline) 50 mg PO TID [facility] Last Admin: 09/10/20 06:03 Dose: 50 mg Documented by: Hydrochlorothiazide (Hctz) 25 mg PO DAILY [facility] Last Admin: 11/02/19 09:06 Dose: 25 mg Documented by: Sodium Chloride () 250 mls @ 15 mls/hr IV .[id number] PRN PRN Reason: Saline Flush Last Infusion: 10/31/19 02:05 Dose: 0 mls/hr Documented by: Sodium Chloride () 250 mls @ 15 mls/hr IV .[id number] PRN PRN Reason: Additional IVPB Infusion Labetalol HCl (Trandate) 40 mg IV Q6H PRN PRN PRN Reason: BLOOD PRESSURE Last Admin: 11/01/19 18:49 Dose: 40 mg Documented by: Losartan Potassium (Cozaar) 50 mg PO DAILY [facility] Last Admin: 11/02/19 10:42 Dose: 50 mg Documented by: Melatonin (Melatonin) 3 mg PO QHS PRN PRN PRN Reason: INSOMNIA Nicotine (Nicoderm Cq (Pbkc)) 21 mg TRANSDERM. DAILY [facility] Last Admin: 11/02/19 09:06 Dose: 21 mg Documented by: Ondansetron HCl (Zofran) 4 mg IV Q8H PRN PRN PRN Reason: NAUSEA/VOMITING Senna/Docusate Sodium (Senokot-S, Jocelyn-Colace) 2 tablet PO BID PRN PRN PRN Reason: Constipation Sodium Chloride () 10 - 40 ml IV UD PRN PRN Reason: SALINE FLUSH Last Admin: 11/01/19 20:15 Dose: 10 ml Documented by: Discharge Diet: Low fat/ Low Cholesterol, 2000 mg Sodium Diet Discharge Activity: Return to Normal Activity Call your doctor if you observe: Shortness of breath, Dizziness, Fainting spells, Chest pain Home Medications: Medications to take at Discharge Carbamazepine [Tegretol] 100 mg PO BIDCM #14 tab 11/01/19 Hydrochlorothiazide [Hctz] 25 mg PO DAILY #30 tab 11/02/19 Ketorolac [Toradol] 10 mg PO Q6H PRN #20 tab 11/02/19 Losartan Potassium [Cozaar] 50 mg PO DAILY #30 tab 11/02/19 hydrALAZINE [Apresoline] 50 mg PO TID #90 tab 11/02/19 Following Prescriptions Were Given to Patient: hydrALAZINE [Apresoline] 50 mg PO TID #90 tab Transmission Status: Received by [id number] Losartan Potassium [Cozaar] 50 mg PO DAILY #30 tab Transmission Status: Received by [id number] Hydrochlorothiazide [Hctz] 25 mg PO DAILY #30 tab Transmission Status: Received by [id number] Carbamazepine [Tegretol] 100 mg PO BIDCM #14 tab Transmission Status: Received by [id number] Ketorolac [Toradol] 10 mg PO Q6H PRN #20 tab PRN Reason: Pain Score 6-10/10 Transmission Status: Received by [id number] Primary Care Physician: María Elena Eubanks DO [Primary Care Provider] - Please follow up with your Primary Care Physician in: 1 week Please Follow Up With: Allan Bailon MD When: 1-2 weeks Patient Instructions: Lumbar Puncture, Having a Lumbar Puncture Disposition: Home Minutes spent on discharge:: 35 Patient Condition:: Stable Medical Necessity - Tobacco Use Smoking Status: Current every day smoker Tobacco Use: Cigarettes Meaningful Use Info Meaningful Use Diagnoses (Choose all that apply): None applicable <Travis Lua - Last Filed: 11/02/19 14:11> Discharge Date and Diagnosis - Secondary Discharge Diagnosis Chronic Problems: Chronic Problems (Last Updated 11/01/19 @ 14:00 by Stone RUBIN, PA) Atherosclerosis of coronary artery of [place] heart without angina pectoris (Chronic) [id number] LAD w/ 3.0 x 18 mm Resolute and Mid LAD w/ 2.5 x 12 mm Resolute 03/01/2017; PCI-JENNY to MID LAD with a 2.5 x 12 mm Promus Synergy and POBA-D2 08/08/18 History of coronary artery stent placement (Chronic 08/08/18) [id number] LAD w/ 3.0 x 18 mm Resolute and Mid LAD w/ 2.5 x 12 mm Resolute 03/01/2017; PCI-JENNY to MID LAD with a 2.5 x 12 mm Promus Synergy and POBA-D2 08/08/18 Essential (primary) hypertension (Chronic) Pure hypercholesterolemia (Chronic) Nicotine dependence (Chronic) Hospital Course and Treatment Summary of Care Provided: This patient was seen in conjunction with LIFE ASSURANCE REPRESENTATIVERaquel. I have independently interviewed and examined the patient and reviewed pertinent history, examination findings, laboratory and plan of management. I have reviewed the note and agree with the documented findings with the few additional points. In brief, patient is 54 question gentleman admitted with intractable headache. LP shows normal opening pressure. Patient was also seen by director of emergency nursing. There is low suspicion idiopathic orbital inflammatory syndrome as patient does not have pain on extraocular movement. Patient further had lumbar puncture which shows normal opening pressure. Patient on Tegretol 100 mg p.o. twice daily. Further follow-up with ophthalmology as an outpatient. Uncontrolled hypertension, hypertensive urgency: On IV hydralazine and labetalol. On HCTZ. Losartan added. Patient was advised to spread out his antihypertensive medications. Other comorbidities include dyslipidemia, secondary to smoking/nicotine use and dependence and history of migraine. Patient states his headache is not migraine type and he did not had improvement with multiple migraine agents during the hospital stay. Discharge medication reconciliation done. Discharge follow-up instructions completed. Discharge process discussed with the patient and all questions were answered to patient's satisfaction. Discharged on hydralazine, Cozaar, HCTZ and Tegretol. Follow-up with director of emergency nursing and PCP. Total time spent, exact 35 minutes on discharge meds reconciliation, examination, coordination of care with nurses and ancillary staff, review of imaging and blood test and discussion with the patient on follow-up instructions I have discussed my assessment with LIFE ASSURANCE REPRESENTATIVERaquel and orders have been reviewed. Objective: Seen and examined. Patient states he still has headache mainly right retro-orbital area. Patient was told he has extensive imaging and investigation and no definite cause of headache found. History of headache is not reliable as he states intermittent type, sometimes constant sometimes sharp. LP was done. Cell and chemistry of LP was benign, total WBC 6, RBC 0. 80 lymphocytes, 20 monocytes. Glucose 60 and total protein 34 in normal range. CSF culture does not show any growth for 1 day. Blood pressure [id number]. Physical exam General: Alert, Oriented x3, Cooperative, morbid obesity, BMI 39.3 kg/m? HEENT: Atraumatic, PERRLA, EOMI, Normocephalic Oral: No Gingival or Mucosal Lesions/ Ulcerations Neck: Supple, No JVD, Negative Carotid Bruits Lungs: Air entry diminished in bilateral lung bases. No crepitation/rhonchi Cardiovascular: Regular rate, Regular Rhythm, Normal S1, Normal S2, No murmurs Abdomen: Bowel Sounds Present, Soft, Non Tender, Non-Distended : No renal angle tenderness. No suprapubic tenderness. Extremities: No edema, Capillary Refill Less than 3 Seconds Skin: No rashes, No breakdown Musculoskeletal: No Tenderness to Palpation of Joints or Extremities Neurological: Cranial nerves II-XII grossly intact, Deep Tendon Reflexes 2+/4 and Symmetrical, Neuro grossly intact Psych/Mental Status: Normal Affect, Appropriate. - Physical Exam Vitals/I&O's: Vital Signs Temp Pulse Resp BP Pulse Ox 97.7 F L 80 16 166/109 H 95 11/02/19 13:34 11/02/19 13:53 11/02/19 13:34 11/02/19 13:53 11/02/19 13:34 Oxygen Flow Rate (L/min) 0 Oxygen Delivery Method Room Air Weight: 258 lb 8 oz Body Mass Index (BMI) 39.3 Intake and Output for Last 24 Hours 10/31/19 11/01/19 11/02/19 23:59 23:59 23:59 Intake Total 968 / 1568 1400 / 1400 550 / 550 Balance 968 / 1568 1400 / 1400 550 / 550 Microbiology Past 72 Hours 11/01/19 09:45 Csf, Spinal Fluid Gram Stain - Final 11/01/19 09:45 Csf, Spinal Fluid CSF Culture - Preliminary No growth in 24 hours. Final to follow. Current Medications Acetaminophen (Tylenol) 650 mg PO Q4H PRN PRN PRN Reason: pain 1-12/01, fever Last Admin: 11/02/19 09:09 Dose: 650 mg Documented by: Albuterol Sulfate (Ventolin Aerosols) 2.5 mg INHALATION Q2H PRN PRN PRN Reason: Shortness of Breath/Wheezing Carbamazepine (Tegretol) 100 mg PO BIDCM [facility] Last Admin: 11/02/19 09:06 Dose: 100 mg Documented by: Hydralazine HCl (Apresoline Iv) 10 mg IV Q4H PRN PRN PRN Reason: SBP > 160 Last Admin: 11/01/19 14:37 Dose: 10 mg Documented by: Hydralazine HCl (Apresoline) 50 mg PO TID [facility] Last Admin: 11/02/19 13:53 Dose: 50 mg Documented by: Hydrochlorothiazide (Hctz) 25 mg PO DAILY [facility] Last Admin: 11/02/19 09:06 Dose: 25 mg Documented by: Sodium Chloride () 250 mls @ 15 mls/hr IV .[id number] PRN PRN Reason: Saline Flush Last Infusion: 10/31/19 02:05 Dose: 0 mls/hr Documented by: Sodium Chloride () 250 mls @ 15 mls/hr IV .[id number] PRN PRN Reason: Additional IVPB Infusion Labetalol HCl (Trandate) 40 mg IV Q6H PRN PRN PRN Reason: BLOOD PRESSURE Last Admin: 11/01/19 18:49 Dose: 40 mg Documented by: Losartan Potassium (Cozaar) 50 mg PO DAILY [facility] Last Admin: 11/02/19 10:42 Dose: 50 mg Documented by: Melatonin (Melatonin) 3 mg PO QHS PRN PRN PRN Reason: INSOMNIA Nicotine (Nicoderm Cq (Pbkc)) 21 mg TRANSDERM. DAILY [facility] Last Admin: 11/02/19 09:06 Dose: 21 mg Documented by: Ondansetron HCl (Zofran) 4 mg IV Q8H PRN PRN PRN Reason: NAUSEA/VOMITING Senna/Docusate Sodium (Senokot-S, Jocelyn-Colace) 2 tablet PO BID PRN PRN PRN Reason: Constipation Sodium Chloride () 10 - 40 ml IV UD PRN PRN Reason: SALINE FLUSH Last Admin: 11/01/19 20:15 Dose: 10 ml Documented by: Inpatient E&M: [id number] Disch Hosp
--- NOTE | 2019-11-02 13:44 | PCM.WORK.EX ---
Work/School Excuse Work/School Excuse for:: Patient Please excuse this person from:: Work From: 10/29/19 through: 11/05/19 - June return 11/06/2019
[2019-11-02 13:53] VITALS: BP 166/109; PULSE 80
[2019-11-03 09:33] LABS: Pathologist Review Reviewed
[2019-11-03 16:08] LABS: HSV 1 By PCR Negative (Negative)
[2019-11-03 18:42] LABS: HSV 2 By PCR Negative (Negative)
== END 2019-11-02 14:12 | disposition home or self-care (01) | DRG 74 ==
LOC: ED 21:35 → PCU 22:51
PROVIDERS: Internal Medicine; Physician Assistant; Admitting Provider Hospitalist; Emergency Provider Emergency Medicine; PCP Internal Medicine; Visit Provider Internal Medicine
DX: G50.0 Trigeminal neuralgia (principal); I16.1 Hypertensive emergency; G43.909 Migraine, unspecified, not intractable, without status migrainosus; E78.5 Hyperlipidemia, unspecified; F17.210 Nicotine dependence, cigarettes, uncomplicated; E66.01 Morbid (severe) obesity due to excess calories; G47.33 Obstructive sleep apnea (adult) (pediatric); Z68.39 Body mass index [BMI] 39.0-39.9, adult; I25.10 Atherosclerotic heart disease of native coronary artery without angina pectoris; Z95.5 Presence of coronary angioplasty implant and graft; E78.00 Pure hypercholesterolemia, unspecified; I25.2 Old myocardial infarction; E03.9 Hypothyroidism, unspecified; F32.9 Major depressive disorder, single episode, unspecified; F41.9 Anxiety disorder, unspecified; Z79.899 Other long term (current) drug therapy; Z82.49 Family history of ischemic heart disease and other diseases of the circulatory system; Z90.49 Acquired absence of other specified parts of digestive tract; I10 Essential (primary) hypertension
CPT/HCPCS: 36415; 62270; 70450; 70486; 70496; 70498; 70544; 70553; 77003; 80048; 82945; 84157; 85025; 85610; 85652; 85730; 86140; 87070; 87205; 87529; 87798; 88108; 88305; 88313; 89050; 89051; 94762; 99284; 99406; A9575; J7050; Q9967; A4216; J1940; J2930; J3030

== ENCOUNTER 2021-04-30 10:09 | Inpatient (IN) | payer BC, SELFPAY ==
[2021-04-30] VITALS (15 sets, daily range): BP systolic 170–262; BP diastolic 89–159; PULSE 59–92; RESP 14–18; TEMP 36.1–36.7; O2SAT 94–98; BMI 37.3; BMI 35.9
--- NOTE | 2021-04-30 10:29 | CT_ITS ---
STUDY: CT BRAIN WITHOUT CONTRAST REASON FOR EXAM: Male, 56 years old. TIA, headache RADIATION DOSAGE (If Supplied By Facility): CTDIvol = ( 44.99 ) mGy, DLP = ( 880.47 ) mGycm TECHNIQUE: Transaxial CT imaging of the brain was performed without administration of intravenous contrast material. Individualized dose optimization techniques were used for this CT. COMPARISON: No relevant priors. FINDINGS: Normal soft tissue structures. Normal calvarium. Normal size ventricles and extra-axial spaces for the patient''s age. There are areas of decreased attenuation within the white matter tracts of the supratentorial brain, consistent with microvascular disease changes. Lacunar infarct in the left basal ganglia and. Diffuse decreased attenuation of the midbrain with evidence of decrease attenuation of the bilateral cerebellar peduncles. This is suggestive of ischemia. Normal cerebellum. There is no intracranial hemorrhage. There are no findings of an acute ischemic infarction. Normal visualized paranasal sinuses. CT/Brain/Head without Contrast IMPRESSION: Diffuse decreased attenuation of the midbrain with extension into the cerebellar peduncles bilaterally. Correlation with MRI is recommended. Electronically Signed: Holger Enriquez MD at 11:47 EST ,
--- NOTE | 2021-04-30 10:30 | EKG12_ITS ---
Test Reason : HEADACHE Blood Pressure : / mmHG Vent. Rate : 081 BPM Atrial Rate : 081 BPM P-R Int : 156 ms QRS Dur : 090 ms QT Int : 382 ms P-R-T Axes : 062 062 147 degrees QTc Int : 443 ms Normal sinus rhythm ST & T wave abnormality, consider inferolateral ischemia Abnormal ECG Confirmed by DALE ORELLANA, KEVIN ([id number]), communications editor VALORIE BOO ([id number]) on 05/01/2021 10:14:20 AM Referred By: ELHAM Confirmed By:KEVIN HUNTER MD
--- NOTE | 2021-04-30 10:31 | CT_ITS ---
STUDY: CTA CHEST REASON FOR EXAM: Male, 56 years old. TIA, headache, right head pain, off balance RADIATION DOSAGE (If Supplied By Facility): CTDIvol = ( 12.63 ) mGy, DLP = ( 557.25 ) mGycm TECHNIQUE: The examination was performed with the intravenous administration of IV 100mL Isovue-300. Post-processing of the angiographic images was performed, with multiplanar reformation and 3D reconstruction. Individualized dose optimization techniques were used for this CT. COMPARISON: Comparison is made with prior examination dated 09/08/2019. FINDINGS: Normal enhancement of the main pulmonary artery and right and left pulmonary arteries. Normal enhancement of the bilateral peripheral pulmonary arteries. There is no demonstrated pulmonary embolism. Normal thoracic aorta and visualized great vessels. There is no demonstrated aortic dissection. Normal heart and pericardium. Normal mediastinum. Normal hilar regions. Normal visualized trachea and bronchi. The lungs are well expanded. Normal pulmonary parenchyma. Normal pleura. Normal chest wall structures. There are degenerative changes of thoracic spine. There is a 2.3 cm cyst in the upper lateral aspect of the left kidney. CT/CTA Chest W/WO Contrast IMPRESSION: Normal CTA chest examination, without a demonstrated pulmonary embolism or arterial dissection. Electronically Signed: Holger Enriquez MD at 11:49 EST ,
[2021-04-30 10:41] LABS: Absolute Lymphocyte Count 1.46 X10^3/uL (0.83-4.51); Basophil# 0.08 X10^3/uL; Basophil% 0.8 % (0-1); Eosinophil# 0.53 X10^3/uL; Eosinophils% 5.4 % (0-5); Hematocrit 48.8 % (40-54); Hemoglobin 16.9 g/dL (13.0-16.5); Lymphocyte # 1.46 X10^3/ul (0.83-4.51); Mean Corp Hgb Conc 34.6 g/dL (32-36); Mean Corpuscular Volume 89.5 fL (80-94); Mean Platelet Vol. 10.2 fl (6.2-12.0); Monocyte# 0.64 X10^3/uL; Monocyte% 6.6 % (0-10); NRBC Flagged by Analyzer 0 % (0-5); Neutrophil # 6.99 X10^3/uL (2.7-7.7); Neutrophil % 71.9 % (47-70); Platelet Count 283 K/mm3 (150-450); RBC Distribution Width CV 13.2 % (11.6-14.6); RBC Distribution Width SD 43.1 fl (35.1-43.9); Red Blood Count 5.45 M/mm3 (4.6-6.2); White Blood Count 9.7 K/mm3 (4.4-11.0)
[2021-04-30] MEDS: Morphine 4 MG/ML Syringe IV (10:42)
[2021-04-30] MEDS: Labetalol (Prefilled) 20 MG/4 ML 10 MG IV (10:42)
--- NOTE | 2021-04-30 10:43 | EX.ED.DYSGE1 ---
HPI History of Present Illness Chief Complaint: Headache Informant: patient Narrative Narrative: Patient is a 56-year-old with history of coronary artery disease, idiopathic intracranial hypertension, trigeminal neuralgia, hyperlipidemia, hypertension and medication noncompliance presenting with headaches and an episode of difficulty walking. Patient states has been having some headaches for some time. They seem to come from the base of his right skull and radiate up into his forehead, eye and ear. Is worse when he moves his head. He states normally he can take a couple Advil once or twice a day and this will resolve the headaches. Yesterday he was unable to get any relief and he is continued have a headache today. This morning when he was walking through his house he all of a sudden noticed that he seemed to be listing to the left. Was later in his bed and felt like he was having a hard time scooting his legs. It seemed that his left leg was affecting him more. His symptoms have since resolved. He denies any ringing in his ears or pounding sensation. Denies any vision changes. Notes he is been mildly short of breath for the last 6 to 8 weeks with a mild cough. Has had decreased appetite. Denies any nausea or vomiting. Denies any chest pain or fever. No other complaints at this time. [facility] Medical History Anxiety and depression Atherosclerosis of coronary artery of [place] heart without angina pectoris Chronic depression Diverticulitis Essential (primary) hypertension Headache History of non-ST elevation myocardial infarction (NSTEMI) (03/01/17) HTN (hypertension) Hypothyroidism Idiopathic intracranial hypertension Migraine Nicotine dependence Non-ST elevation (NSTEMI) myocardial infarction (02/2017) Obesity Pain in periorbital region of right eye Periorbital pain Pure hypercholesterolemia Segmental and somatic dysfunction of cervical region Segmental and somatic dysfunction of lumbar region Segmental dysfunction of thoracic region Trigeminal neuralgia Home Medications ibuprofen [Advil] 200 mg PO Q6H PRN 04/30/21 [History Last Taken Unknown] Allergy/AdvReac Type Severity Reaction Status Date / Time Sulfa (Sulfonamide Allergy Other Verified 04/30/21 10:09 Antibiotics) Family History (Updated 04/30/21 @ 12:[address] Alexis Conn MD) Father CAD (coronary artery disease) coronary stents Kidney disease Mother CHF (congestive heart failure) Aortic valve replaced Brother Atrial fibrillation Surgical History History of appendectomy History of colectomy History of coronary artery stent placement (08/08/18) History of tonsillectomy History of uvulopalatopharyngoplasty Status post correction of deviated nasal septum Social History Smoking Status: Current every day smoker tobacco type: cigarettes alcohol intake: never caffeine: Yes Type: carbonated beverages Number of servings: 3 ROS ROS ED Constitutional Constitutional ED: Denies chills or fever(s) Eyes Eyes: Denies blurry vision or change in vision ENT ENT ED: Denies ear pain, rhinorrhea or sore throat Cardiovascular Cardiovascular: Denies chest pain Respiratory/Chest Respiratory/Chest: Reports cough and dyspnea; Denies dyspnea on exertion or sputum Gastrointestinal Gastrointestinal: Denies abdominal pain, nausea or vomiting Musculoskeletal Musculoskeletal: Denies arthralgias, myalgias or neck pain Integumentary Denies rash Neurologic Neurologic: Reports headache(s) and weakness Psychiatric Psychiatric: Denies anxiety or depression EXAM Physical Exam Const Vital Signs: 04/30/21 10:10 04/30/21 10:33 04/30/21 11:36 Temperature 96.9 F L Temperature Source Temporal Pulse Rate 92 72 Respiratory Rate 17 14 Blood Pressure 262/138 H 237/159 H 201/126 H Blood Pressure Mean 179 185 151 Blood Pressure Source Blood Pressure Position Blood Pressure Location Pulse Ox 98 94 Oxygen Delivery Method Room Air Room Air 04/30/21 14:17 04/30/21 14:18 04/30/21 14:50 Temperature 97.7 F L 97.7 F L 97.4 F L Temperature Source Oral Oral Temporal Pulse Rate 77 77 79 Respiratory Rate 16 16 18 Blood Pressure 194/135 H 194/135 H 234/121 H Blood Pressure Mean 154 154 158 Blood Pressure Source Monitor Blood Pressure Position Semi-Fowlers Blood Pressure Location Right Arm Pulse Ox 98 98 98 Oxygen Delivery Method Room Air Room Air Room Air Positive well nourished and well developed General Appearance ED: well developed and NAD HEENT Reports TM's clear and moist mucous membranes Negative for trauma or tenderness Tympanic Membrane ED: Yes TM's clear Eyes PERRL and EOMs intact bilaterally Eyes Narrative: Pronounced periorbital edema bilaterally No nystagmus Neck supple and no JVD Chest Wall inspection of chest normal Resp normal respiratory effort and clear to auscultation bilaterally Cardio regular rate, regular rhythm and no murmurs GI normal to inspection, nondistended, normoactive bowel sounds, non-tender and non-distended Palpation: soft Extremity normal to inspection General Extremety ED: Negative for tenderness Neuro oriented x3, CN's II-XII intact bilaterally and no sensory deficits noted Neuro Narrative: NIH equals 0 Normal coordination Sensorium / Orientation: alert Motor Exam: strength 5/5 throughout Psych mental status grossly normal Skin no rashes or lesions noted and no wounds MDM MDM MDM Narrative Medical decision making narrative: Patient is evaluated for headache and what sounds like a TIA. He had a transient episode where he was off balance and maybe had some left leg weakness. This is since resolved. As he currently has no neurologic symptoms I did not call a stroke alert. He is quite hypertensive in the ER with initial blood pressure of 262/138. Patient is given a dose of labetalol for this with improvement with blood pressure down to 200 systolic. Patient does have an elevation of his creatinine above his baseline. His baseline is 1 and today is 1.37. His high-sensitivity troponin is 40 and he does have acute EKG changes. Patient has T wave inversions in lateral as well as some of the precordial leads. He is not currently have any chest pain. Does have a history of ACS and stent placement but is often have a his medications. CT of the brain does not show any acute bleed or mass but does show diffuse decreased attenuation of the midbrain with extension to the cerebellar peduncles bilaterally. With his high blood pressure and neck pain I did get a CTA of the chest to rule out dissection. This was negative. Patient's blood pressure does start to go up again he is given a dose of IV hydralazine. Patient be admitted to the PCU for further stroke evaluation as well as for accelerated hypertension. He is given gentle IV fluids for his kidney function in the ER. He is given a dose of aspirin in the ER after negative head CT. Lab Data Attestation: I reviewed the patient's lab results. Labs: Laboratory Results - last 24 hr 04/30/21 04/30/21 04/30/21 10:30 10:30 10:30 WBC 9.7 RBC 5.45 Hgb 16.9 H Hct 48.8 MCV 89.5 MCH 31.0 MCHC 34.6 RDW Std Deviation 43.1 RDW Coeff of Bob 13.2 Plt Count 283 MPV 10.2 Immature Gran % (Auto) 0.300 Neut % (Auto) 71.9 H Lymph % (Auto) 15.0 L Ritchie % (Auto) 6.6 Eos % (Auto) 5.4 H Baso % (Auto) 0.8 Absolute Neuts (auto) 7.0 Absolute Lymphs (auto) 1.46 Nucleated RBC % 0 Sodium 138 Potassium 3.9 Chloride 107 Carbon Dioxide 25.0 Anion Gap 6 BUN 28 H Creatinine 1.37 H Estim Creat Clear Calc 57.55 Est GFR (MDRD) Af Amer 69 Est GFR (MDRD) Non-Af 57 L BUN/Creatinine Ratio 20.4 H Glucose 120 H Calcium 8.7 Total Bilirubin 0.30 AST 18 ALT 22 Alkaline Phosphatase 85 Troponin I High Sens 40 B-Natriuretic Peptide 120.2 H Total Protein 6.9 Albumin 3.4 Globulin 3.5 Albumin/Globulin Ratio 1.0 TSH Ethyl Alcohol 04/30/21 04/30/21 10:30 12:50 WBC RBC Hgb Hct MCV MCH MCHC RDW Std Deviation RDW Coeff of Bob Plt Count MPV Immature Gran % (Auto) Neut % (Auto) Lymph % (Auto) Ritchie % (Auto) Eos % (Auto) Baso % (Auto) Absolute Neuts (auto) Absolute Lymphs (auto) Nucleated RBC % Sodium Potassium Chloride Carbon Dioxide Anion Gap BUN Creatinine Estim Creat Clear Calc Est GFR (MDRD) Af Amer Est GFR (MDRD) Non-Af BUN/Creatinine Ratio Glucose Calcium Total Bilirubin AST ALT Alkaline Phosphatase Troponin I High Sens 45 B-Natriuretic Peptide Total Protein Albumin Globulin Albumin/Globulin Ratio TSH 7.78 H Ethyl Alcohol < 3.0 Radiography Diagnostic Testing: Clinical Impression(s) from Imaging Studies Brain CT 04/30/21 10:29 IMPRESSION: Diffuse decreased attenuation of the midbrain with extension into the cerebellar peduncles bilaterally. Correlation with MRI is recommended. Electronically Signed: Holger Enriquez MD at 11:47 EST , Chest CTA 04/30/21 10:31 IMPRESSION: Normal CTA chest examination, without a demonstrated pulmonary embolism or arterial dissection. Electronically Signed: Holger Enriquez MD at 11:49 EST , Chest X-Ray 04/30/21 11:13 IMPRESSION: No acute abnormality is seen. Electronically Signed: Holger Enriquez MD at 11:47 EST , Brain MRI 04/30/21 12:25 IMPRESSION: Small acute lacunar infarct within the right basal ganglion. Question acute versus chronic focal ischemic changes within both occipital lobes. Chronic periventricular microvascular changes. at 1436 Reported and signed by: Deepak Hutchins MD Electronically Signed: Deepak Hutchins MD at 14:35 EST , Rhythm Strip Rhythm Strip: Sinus Rhythm Rate: 81 Ectopy: None EKG Initial EKG: Attestation: I personally reviewed and interpreted this EKG as follows: Interpretation: Sinus Rhythm Comments: Normal axis Normal intervals T wave inversions in 1, aVL, V4 through V6 No ST elevations T wave changes are new compared to prior EKG on 09/11/2019 Prior: Changed Discharge Plan Dx/Rx/DC Orders Clinical Impression: Hypertensive urgency, Headache, Brain TIA, Abnormal ECG, Creatinine elevation Disposition Disposition: Acute Care Hospital [facility] Discharge Date/Time: 04/30/21 14:19
[2021-04-30 11:00] LABS: AST(SGOT) 18 U/L (15-37); Alanine Aminotransfer ALT/SGPT 22 U/L (16-61); Albumin, Serum 3.4 g/dL (3.2-5.0); Alkaline Phosphatase 85 U/L (45-117); Anion Gap 6 (5-15); BUN 28 mg/dL (7-18); BUN/Creat Ratio 20.4 RATIO (10-20); Calcium,Total 8.7 mg/dL (8.5-10.1); Chloride 107 mmol/L (98-107); Creatinine, Serum 1.37 mg/dL (0.70-1.30); EST Glomerular Filtration Rate 57 mL/min (>60); Est Glom Filt Rate - Afr Amer 69 mL/min (>60); Estimated Creatinine Clearance 57.55 ml/min; Globulin 3.5 g/dL (2.2-4.2); Glucose 120 mg/dL (74-106); Potassium 3.9 mmol/L (3.5-5.1); Protein, Total 6.9 g/dL (6.4-8.2); Sodium Level 138 mmol/L (136-145); Troponin-I HS 40 pg/mL (3.0-78.0)
[2021-04-30 11:06] LABS: BNP,B-Type NATRIURETIC PEPTIDE 120.2 pg/mL (0-100)
--- NOTE | 2021-04-30 11:13 | RAD_ITS ---
STUDY: X-RAY CHEST REASON FOR EXAM: Male, 56 years old. Sob TECHNIQUE: Single AP portable view of the chest. COMPARISON: Comparison is made with prior study dated 09/11/2019. FINDINGS: EKG electrodes are seen. The lungs are clear and expanded. There is no demonstrated pleural abnormality. Normal size heart. Normal mediastinum and ophelia. Normal visualized pulmonary arteries. There is atherosclerotic tortuosity of the aortic arch and descending thoracic aorta. There are diffuse degenerative changes of the visualized thoracic spine. Normal visualized ribs, clavicles, and shoulders. There is no demonstrated abnormality of the visualized soft tissue structures of the upper abdomen. RAD/Chest 1 View (Portable) IMPRESSION: No acute abnormality is seen. Electronically Signed: Holger Enriquez MD at 11:47 EST ,
[2021-04-30] MEDS: proCHLORPERazine 10 MG/2 ML Vial IV (12:17)
[2021-04-30] MEDS: DiphenhydrAMINE 50 MG/ML Syringe 25 MG IV (12:17)
[2021-04-30] MEDS: Aspirin 81 MG TAB.CHEW 324 MG PO (12:18)
--- NOTE | 2021-04-30 12:25 | MRI_ITS ---
EXAM: MR HEAD WITHOUT INTRAVENOUS CONTRAST : 1965 CLINICAL INDICATION: tia TECHNIQUE: Multiplanar and multisequence MR images of the brain were obtained without intravenous contrast. This report was created using [employer] report generation technology. COMPARISON: CT brain April 30, 2021 and MRI brain October 30, 2019 FINDINGS: BRAIN AND EXTRA-AXIAL SPACES: Multiple small areas of restricted diffusion noted within both cerebral hemispheres most of which represent T2 shine through suggestive of chronic ischemia. A 5 mm lacunar type acute infarct suggested within the right basal ganglion. Additional small foci of acute ischemia may be present within both occipital lobes. Multiple foci of increased T2 signal intensity within the cerebral white matter consistent with chronic microvascular disease. No intra- or extra-axial hemorrhage. No intracranial mass or mass effect. Posterior fossa structures are unremarkable. Ventricles are appropriate for age. No hydrocephalus. Basal cisterns are patent. SELLA: Unremarkable. Normal sella turcica, pituitary gland, infundibular stalk, optic chiasm and hypothalamus. AUDITORY SYSTEM: Unremarkable. The internal auditory canals are patent. BONES/JOINTS: Unremarkable. No discrete lytic or blastic abnormalities. SINUSES: Unremarkable as visualized. Clear. MASTOID AIR CELLS: Unremarkable as visualized. Clear. ORBITS: Unremarkable as visualized. Both globes, extraocular muscles, optic nerves and retrobulbar fat appear unremarkable. VASCULATURE: Unremarkable as visualized. Normal flow voids in the major intracranial circulation. MRI/Brain without Contrast IMPRESSION: Small acute lacunar infarct within the right basal ganglion. Question acute versus chronic focal ischemic changes within both occipital lobes. Chronic periventricular microvascular changes. at 1436 Reported and signed by: Deepak Hutchins MD Electronically Signed: Deepak Hutchins MD at 14:35 EST ,
--- NOTE | 2021-04-30 12:27 | ECHOD_ITS ---
Reason For Study: TIA/CVA Procedure This was a 2D Doppler, Color Flow transthoracic echocardiogram. Exam performed portable in patient room. Left Ventricle Normal LV size. Moderate concentric left ventricular hypertrophy. Left ventricular systolic function is normal. The estimated ejection fraction is 60 %. Stage 1 diastolic dysfunction. No regional wall motion abnormalities noted. Right Ventricle Normal RV size. Normal systolic function. Atria Normal left atrium. Normal right atrium. Bubble contrast study negative for right to left interatrial shunt. Mitral Valve Normal mitral valve. Trivial mitral valve insufficiency. Tricuspid Valve Normal tricuspid valve. Aortic Valve Normal aortic valve. Trisinus/trileaflet aortic valve. Pulmonic Valve Normal pulmonic valve. Great Vessels Normal aortic root. The pulmonary artery is normal size. Normal inferior vena cava. Pericardium/Pleural No pericardial effusion. Medication Performed a rapid injection of agitated mix of 9 cc saline and 1cc air to assess for atrial septal defect. MMode/2D Measurements & Calculations LVIDd: 5.0 cm IVSd: 1.3 cm Ao root diam: 3.3 cm LVIDs: 3.5 cm LVPWd: 1.4 cm RVDd: 3.4 cm FS: 29.6 % LAV(MOD-bp): 38.9 ml LVAd ap4: 45.2 cm2 SV(MOD-sp4): 104.1 ml LAV(MOD-bp) Indexed: 17.5 ml/m2 LVLd ap4: 9.6 cm LAV(MOD-sp2): 38.5 ml EDV(MOD-sp4): 175.8 ml LAV(MOD-sp4): 39.7 ml EDV(sp4-el): 180.3 ml LVAs ap4: 26.6 cm2 LVLs ap4: 8.4 cm ESV(MOD-sp4): 71.7 ml ESV(sp4-el): 71.2 ml EF(MOD-sp4): 59.2 % EF(sp4-el): 60.5 % SV(sp4-el): 109.1 ml LA A4 area: 16.4 cm2 LA dimension(2D): 3.6 cm RA A4 area: 15.7 cm2 Time Measurements MV dec time: 0.15 sec Doppler Measurements & Calculations MV E max reilly: 107.0 cm/sec Lat Peak E' Reilly: 5.3 cm/sec Med Peak E' Reilly: 4.8 cm/sec MV A max reilly: 125.4 cm/sec E/E' lat: 20.0 E/E' med: 22.2 MV E/A: 0.85 Ao V2 max: 190.7 cm/sec LV V1 max: 145.5 cm/sec PA V2 max: 109.6 cm/sec Ao max P.5 mmHg LV V1 max P.5 mmHg ECHO/Echo Complete Interpretation Summary Normal LV size. Moderate concentric left ventricular hypertrophy. Left ventricular systolic function is normal. The estimated ejection fraction is 60 %. Stage 1 diastolic dysfunction. Bubble contrast study negative for right to left interatrial shunt. Ordering Physician: Alexis Conn Referring Physician: RICHARD MCKINNEY Performed By: Audrey Gamboa RDCS
--- NOTE | 2021-04-30 12:34 | HP.PCM.HOS_ITS ---
HPI - General General Date of Admission: 04/30/21 Date of Service: 04/30/21 Chief Complaint: Headache HPI Narrative EVARISTO HAYNES, is a 56 M who presents headache. Patient has history of coronary artery disease with previous PCI currently not on any medication. History of high blood pressure currently not on any medication who presented with headache. Patient states he has been experiencing headache for the past couple of months. He intermittently takes ibuprofen which take the headache away. On the morning of his presentation his headache was not relieved by his usual medications. In addition he felt wobbly with loss of balance. He therefore elected to present to the emergency department. In the ED patient was found to have markedly elevated blood pressure with systolic blood pressure greater than 250. Underwent head CT which was negative for acute CVA subsequently admitted for inpatient work-up [facility] Medical History Anxiety and depression Atherosclerosis of coronary artery of [place] heart without angina pectoris Chronic depression Diverticulitis Essential (primary) hypertension Headache History of non-ST elevation myocardial infarction (NSTEMI) (03/01/17) HTN (hypertension) Hypothyroidism Idiopathic intracranial hypertension Migraine Nicotine dependence Non-ST elevation (NSTEMI) myocardial infarction (02/2017) Obesity Pain in periorbital region of right eye Periorbital pain Pure hypercholesterolemia Segmental and somatic dysfunction of cervical region Segmental and somatic dysfunction of lumbar region Segmental dysfunction of thoracic region Trigeminal neuralgia Home Medications ibuprofen [Advil] 200 mg PO Q6H PRN 04/30/21 [History Last Taken Unknown] Allergy/AdvReac Type Severity Reaction Status Date / Time Sulfa (Sulfonamide Allergy Other Verified 04/30/21 10:09 Antibiotics) Family History Father CAD (coronary artery disease) coronary stents Kidney disease Mother CHF (congestive heart failure) Aortic valve replaced Brother Atrial fibrillation Surgical History History of appendectomy History of colectomy History of coronary artery stent placement (08/08/18) History of tonsillectomy History of uvulopalatopharyngoplasty Status post correction of deviated nasal septum Social History Smoking Status: Current every day smoker tobacco type: cigarettes alcohol intake: never caffeine: Yes Type: carbonated beverages Number of servings: 3 ROS ROS Narrative GENERAL: denies fever, chills, night sweats, weight loss, anorexia HEENT: headache, denies sinus congestion, or drainage, dysphagia RESPIRATORY: denies cough, sputum production, shortness of breath, dyspnea on exertion CARDIAC: denies chest pain, palpitations, orthopnea, PND GASTROINTESTINAL: denies abdominal pain, nausea, vomiting, melena, GENITOURINARY: denies dysuria, urgency, frequency, heamaturia EXTREMITY: denies swelling MUSCULOSKELETAL: denies current joint pain or tenderness NEUROLOGIC: denies focal numbness, weakness, tingling HEMATOLOGIC: denies easy bruising and/or hemorrhage INTEGUMENT: denies rashes PSYCHIATRIC: denies suicidal or homicidal ideation Vital Signs Vital Signs Vital Signs: 04/30/21 10:10 04/30/21 10:33 04/30/21 11:36 Temperature 96.9 F L Temperature Source Temporal Pulse Rate 92 72 Respiratory Rate 17 14 Blood Pressure 262/138 H 237/159 H 201/126 H Blood Pressure Mean 179 185 151 Pulse Ox 98 94 Oxygen Delivery Method Room Air Room Air Weight Weight: 111.5 kg Body Mass Index (BMI) 37.3 Physical Exam Narrative GENERAL: cooperative HEENT: Atraumatic; EYES; Anicteric, Normal Conjunctiva NECK; supple, normal thyroid, RESPIRATORY: Diminished to auscultation CARDIOVASCULAR: Regular S1 S2, GI: soft, normoactive bowel sounds, : No Renal angle tenderness; EXTREMITIES: No edema, no clubbing, MUSCULOSKELETAL: no muscle wasting NEURO: Awake; no lateralizing signs. SKIN: No Rash PSYCH; Flat affect Results Lab / Micro Data Result Diagrams: 04/30/21 10:30 04/30/21 10:30 Labs: Laboratory Results - last 24 hr 04/30/21 10:30: WBC 9.7, RBC 5.45, Hgb 16.9 H, Hct 48.8, MCV 89.5, MCH 31.0, MCHC 34.6, RDW Std Deviation 43.1, RDW Coeff of Bob 13.2, Plt Count 283, MPV 10.2, Immature Gran % (Auto) 0.300, Neut % (Auto) 71.9 H, Lymph % (Auto) 15.0 L, Bowie % (Auto) 6.6, Eos % (Auto) 5.4 H, Baso % (Auto) 0.8, Absolute Neuts (auto) 7.0, Absolute Lymphs (auto) 1.46, Nucleated RBC % 0 04/30/21 10:30: Sodium 138, Potassium 3.9, Chloride 107, Carbon Dioxide 25.0, Anion Gap 6, BUN 28 H, Creatinine 1.37 H, Estim Creat Clear Calc 57.55, Est GFR (MDRD) Af Amer 69, Est GFR (MDRD) Non-Af 57 L, BUN/Creatinine Ratio 20.4 H, Glucose 120 H, Calcium 8.7, Total Bilirubin 0.30, AST 18, ALT 22, Alkaline Phosphatase 85, Troponin I High Sens 40, Total Protein 6.9, Albumin 3.4, Globulin 3.5, Albumin/Globulin Ratio 1.0 04/30/21 10:30: B-Natriuretic Peptide 120.2 H Radiology Impression Brain CT 04/30/21 10:29 IMPRESSION: Diffuse decreased attenuation of the midbrain with extension into the cerebellar peduncles bilaterally. Correlation with MRI is recommended. Electronically Signed: Holger Enriquez MD at 11:47 EST , Chest CTA 04/30/21 10:31 IMPRESSION: Normal CTA chest examination, without a demonstrated pulmonary embolism or arterial dissection. Electronically Signed: Holger Enriquez MD at 11:49 EST , Chest X-Ray 04/30/21 11:13 IMPRESSION: No acute abnormality is seen. Electronically Signed: Holger Enriquez MD at 11:47 EST , Assessment & Plan Assessment/Plan (1) Headache: (2) Hypertensive urgency: (3) Nicotine dependence: QUALIFIERS: Nicotine product type: cigarettes Substance use status: uncomplicated Qualified Code(s): F17.210 - Nicotine dependence, cigarettes, uncomplicated (4) Pure hypercholesterolemia: (5) Essential (primary) hypertension: PLAN: Patient is 56-year-old gentleman presented with headache and loss of balance 1. Acute hypertensive urgency ?Patient was found to have markedly elevated blood pressure with systolic blood pressure greater than 260.. Patient did receive labetalol and hydralazine in the emergency department. Admitted to PCU. As part of his management patient was started on scheduled amlodipine HCTZ and hydralazine. This may be adjusted to lisinopril and beta-blockers given his history of coronary artery disease 2. Incoordination - possibly related related to patient uncontrolled blood pressure. Head CT obtained came back negative. MRI has been ordered to rule out posterior circulation CVA 3. Headache - related to #1; Do expect improvement with treatment of underlying condition 4. Dyslipidemia ?Currently not on any medications patient started on statin therapy, lipid panel ordered for a.m. 5. Coronary artery disease ?With previous PCI currently not on any medication patient was started on antiplatelet therapy with aspirin as well as statin therapy. Do plan to add low-dose beta-blockers 6. Hypothyroidism by history ?Ordered TSH for you 7. Depression ?Per history 8. Tobacco dependence - Counseled on cessation, offered nicotine patch for tobacco cravings 9. Class II obesity with BMI of 37.4 ?Weight loss advised 10. DVT prophylaxis ?Lovenox Charges/Coding Visit Charges OBSV E&M: 57186 Initial observation care L3
[2021-04-30] MEDS: hydrALAZINE 20 MG/ML Vial 10 MG IV (12:37)
[2021-04-30] MEDS: 0.9% Normal Saline 1,000 ML 150 ML IV (12:38)
[2021-04-30 12:56] LABS: Alcohol, Blood (Medical)-Serum < 3.0 mg/dL
--- NOTE | 2021-04-30 13:01 | NURSING ---
PCU KITTOE TIA, ACCERLERATED HYPERTENSION
[2021-04-30 13:27] LABS: Thyroid Stim Hormone (TSH) 7.78 uIU/mL (0.358-3.74); Troponin-I HS 45 pg/mL (3.0-78.0)
[2021-04-30] MEDS: Metoprolol Tartrate 25 MG Tablet PO ×2 (15:36→21:13)
[2021-04-30] MEDS: Enoxaparin 40 MG/0.4 ML Syringe SC (15:38)
[2021-04-30] MEDS: hydroCHLOROthiazide 25 MG Tablet PO (15:38)
[2021-04-30] MEDS: 0.9% Normal Saline 1,000 ML 100 ML IV (15:40)
[2021-04-30] MEDS: oxyCODONE 5 MG Tablet PO ×2 (16:01→21:12)
[2021-04-30] MEDS: Atorvastatin Calcium 80 MG Tablet PO (21:13)
[2021-05-01] VITALS (19 sets, daily range): BP systolic 178–206; BP diastolic 104–137; PULSE 58–69; RESP 18; TEMP 36.1–36.9; O2SAT 94–98; BMI 35.9
[2021-05-01] MEDS: Acetaminophen 325 MG Tablet 650 MG PO (00:38)
[2021-05-01] MEDS: 0.9% Normal Saline 1,000 ML 100 ML IV ×3 (00:39→20:49)
[2021-05-01 05:36] LABS: Absolute Neutrophil Count 7.1 X10^3/uL (2.0-7.7); Basophil# 0.07 X10^3/uL; Basophil% 0.7 % (0-1); Eosinophil# 0.67 X10^3/uL; Eosinophils% 6.3 % (0-5); Hematocrit 42.7 % (40-54); Hemoglobin 14.2 g/dL (13.0-16.5); Lymphocyte % 18.9 % (19-41); Mean Corp Hgb Conc 33.3 g/dL (32-36); Mean Corpuscular Hgb 29.9 pg (27.0-32.0); Mean Corpuscular Volume 89.9 fL (80-94); Mean Platelet Vol. 10.2 fl (6.2-12.0); Monocyte# 0.79 X10^3/uL; Monocyte% 7.4 % (0-10); NRBC Flagged by Analyzer 0 % (0-5); Neutrophil # 7.05 X10^3/uL (2.7-7.7); Neutrophil % 66.4 % (47-70); Platelet Count 225 K/mm3 (150-450); RBC Distribution Width CV 13.6 % (11.6-14.6); RBC Distribution Width SD 45.7 fl (35.1-43.9); Red Blood Count 4.75 M/mm3 (4.6-6.2); White Blood Count 10.6 K/mm3 (4.4-11.0)
[2021-05-01 05:57] LABS: Anion Gap 6 (5-15); BUN 24 mg/dL (7-18); BUN/Creat Ratio 19.4 RATIO (10-20); Calcium,Total 7.8 mg/dL (8.5-10.1); Chloride 105 mmol/L (98-107); Cholesterol 165 mg/dL (200); Creatinine, Serum 1.24 mg/dL (0.70-1.30); EST Glomerular Filtration Rate 64 mL/min (>60); Est Glom Filt Rate - Afr Amer 77 mL/min (>60); Estimated Creatinine Clearance 63.59 ml/min; Glucose 110 mg/dL (74-106); High Density Lipoprotein 34 mg/dL; Magnesium 2.2 mg/dL (1.6-2.6); Phosphorus 3.2 mg/dL (2.5-4.9); Sodium Level 135 mmol/L (136-145); Triglycerides 96 mg/dL; Very Low Density Lipoprotein 19 mg/dL (5-40)
[2021-05-01] MEDS: oxyCODONE 5 MG Tablet PO ×2 (06:05→10:37)
[2021-05-01] MEDS: Labetalol (Prefilled) 20 MG/4 ML IV (06:13)
[2021-05-01] MEDS: 0.9% Saline Lock 10 ML Syringe IV (06:18)
--- NOTE | 2021-05-01 07:39 | PN.HOSP_ITS ---
Subjective Subjective Patient is 56-year-old gentleman presented with headache and loss of balance. Patient was admitted to a monitored bed. Subsequent imaging studies with an MRI Small acute lacunar infarct within the right basal ganglion. Question acute versus chronic focal ischemic changes within both occipital lobes. Chronic periv entricular microvascular changes. Patient was also found to have markedly elevated blood pressure on admission. Patient blood pressure currently remains elevated however within the permissive range giving his acute CVA he still complains of headache Objective Data Objective Data Vital Signs: Vital Signs Temp Pulse Resp BP Pulse Ox 98.4 F 64 18 178/112 H 96 05/01/21 06:00 05/01/21 07:00 05/01/21 06:00 05/01/21 06:44 05/01/21 06:44 Oxygen Delivery Method Room Air Weight: 107 kg Body Mass Index (BMI) 35.9 Intake & Output: Intake and Output for Last 24 Hours 04/29/21 04/30/21 05/01/21 23:59 23:59 23:59 Intake Total 865 / 865 1018.33 / 1018.33 Output Total 200 / 200 300 / 300 Balance 665 / 665 718.33 / 718.33 Lab / Micro Data Result Diagrams: 05/01/21 04:36 05/01/21 04:36 Labs: Laboratory Results - last 24 hr 04/30/21 10:30: WBC 9.7, RBC 5.45, Hgb 16.9 H, Hct 48.8, MCV 89.5, MCH 31.0, MCHC 34.6, RDW Std Deviation 43.1, RDW Coeff of Bob 13.2, Plt Count 283, MPV 1 0.2, Immature Gran % (Auto) 0.300, Neut % (Auto) 71.9 H, Lymph % (Auto) 15.0 L, [place] % (Auto) 6.6, Eos % (Auto) 5.4 H, Baso % (Auto) 0.8, Absolute Neuts (auto) 7.0, Absolute Lymphs (auto) 1.46, Nucleated RBC % 0 04/30/21 10:30: Sodium 138, Potassium 3.9, Chloride 107, Carbon Dioxide 25.0, Anion Gap 6, BUN 28 H, Creatinine 1.37 H, Estim Creat Clear Calc 57.55, Est GFR (MDRD) Af Amer 69, Est GFR (MDRD) Non-Af 57 L, BUN/Creatinine Ratio 20.4 H, Glucose 120 H, Calcium 8.7, Total Bilirubin 0.30, AST 18, ALT 22, Alkaline Phosphatase 85, Troponin I High Sens 40, Total Protein 6.9, Albumin 3.4, Globulin 3.5, Albumin/Globulin Ratio 1.0 04/30/21 10:30: B-Natriuretic Peptide 120.2 H 04/30/21 10:30: Ethyl Alcohol < 3.0 04/30/21 12:50: Troponin I High Sens 45, TSH 7.78 H 05/01/21 04:36: WBC 10.6, RBC 4.75, Hgb 14.2, Hct 42.7, MCV 89.9, MCH 29.9, MCHC 33.3, RDW Std Deviation 45.7 H, RDW Coeff of Bob 13.6, Plt Count 225, MPV 10.2, Immature Gran % (Auto) 0.300, Neut % (Auto) 66.4, Lymph % (Auto) 18.9 L, Cascade % (Auto) 7.4, Eos % (Auto) 6.3 H, Baso % (Auto) 0.7, Absolute Neuts (auto) 7.1, Absolute Lymphs (auto) 2.00, Nucleated RBC % 0 05/01/21 04:36: Sodium 135 L, Potassium 4.0, Chloride 105, Carbon Dioxide 24.0, Anion Gap 6, BUN 24 H, Creatinine 1.24, Estim Creat Clear Calc 63.59, Est GFR (MDRD) Af Amer 77, Est GFR (MDRD) Non-Af 64, BUN/Creatinine Ratio 19.4, Glucose 110 H, Calcium 7.8 L, Phosphorus 3.2, Magnesium 2.2, Triglycerides 96, Cholesterol 165, LDL Cholesterol 112, VLDL Cholesterol 19, HDL Cholesterol 34 L Radiography Diagnostic Testing: Radiology Impression Brain CT 04/30/21 10:29 IMPRESSION: Diffuse decreased attenuation of the midbrain with extension into the cerebellar peduncles bilaterally. Correlation with MRI is recommended. Electronically Signed: Holger Enriquez MD at 11:47 EST , Chest CTA 04/30/21 10:31 IMPRESSION: Normal CTA chest examination, without a demonstrated pulmonary embolism or arterial dissection. Electronically Signed: Holger Enriquez MD at 11:49 EST , Chest X-Ray 04/30/21 11:13 IMPRESSION: No acute abnormality is seen. Electronically Signed: Holger Enriquez MD at 11:47 EST , Brain MRI 04/30/21 12:25 IMPRESSION: Small acute lacunar infarct within the right basal ganglion. Question acute versus chronic focal ischemic changes within both occipital lobes. Chronic periventricular microvascular changes. at 1436 Reported and signed by: Deepak Hutchins MD Electronically Signed: Deepka Hutchins MD at 14:35 EST , Echocardiogram 04/30/21 12:27 Interpretation Summary Normal LV size. Moderate concentric left ventricular hypertrophy. Left ventricular systolic function is normal. The estimated ejection fraction is 60 %. Stage 1 diastolic dysfunction. Bubble contrast study negative for right to left interatrial shunt. Ordering Physician: Alexis Conn Referring Physician: RICHARD MCKINNEY Performed By: Audrey Gamboa RDCS Rhythm Strip Rhythm Strip: Sinus Rhythm Rate: 81 Ectopy: None Physical Exam Narrative GENERAL: cooperative HEENT: Atraumatic; EYES; Anicteric, Normal Conjunctiva NECK; supple, normal thyroid, RESPIRATORY: Diminished to auscultation CARDIOVASCULAR: Regular S1 S2, GI: soft, normoactive bowel sounds, : No Renal angle tenderness; EXTREMITIES: No edema, no clubbing, MUSCULOSKELETAL: no muscle wasting NEURO: Awake; no lateralizing signs. SKIN: No Rash PSYCH; Flat affect Assessment & Plan Assessment/Plan (1) Headache: (2) Hypertensive urgency: (3) Nicotine dependence: QUALIFIERS: Nicotine product type: cigarettes Substance use status: uncomplicated Qualified Code(s): F17.210 - Nicotine dependence, cigarettes, uncomplicated (4) Pure hypercholesterolemia: (5) Essential (primary) hypertension: PLAN: Patient is 56-year-old gentleman presented with headache and loss of balance 1. Acute hypertensive urgency ?Patient was found to have markedly elevated blood pressure with systolic blood pressure greater than 260.. Patient did receive labetalol and hydralazine in the emergency department. Admitted to PCU. As part of his management patient was started on scheduled amlodipine HCTZ and hydralazine. This may be adjusted to lisinopril and beta-blockers given his history of coronary artery disease -05/01/2021; patient blood pressure still remains elevated currently 182/137 however this is within the permissive range given patient acute CVA 2. Acute CVA - possibly related related to patient uncontrolled blood pressure. Head CT obtained came back negative. MRI has been ordered to rule out posterior circulation CVA 05/01/2021; subsequent imaging studies with an MRI Small acute lacunar infarct wi thin the right basal ganglion. Question acute versus chronic focal ischemic changes within both occipital lobes. Chronic periventricular microvascular changes. Case was discussed with [facility] neurology plan is to rule out embolic stroke with continuous hospital monitor as well as possible event monitor at discharge. Patient scheduled to undergo subsequent evaluation with TTE patient was started on antiplatelet therapy with aspirin as well as statin therapy on admission 3. Headache - related to #1; Do expect improvement with treatment of underlying condition 4. Dyslipidemia ?Currently not on any medications patient started on statin therapy, lipid panel ordered for a.m. 5. Coronary artery disease ?With previous PCI currently not on any medication patient was started on antiplatelet therapy with aspirin as well as statin therapy. Do plan to add low-dose beta-blockers 6. Hypothyroidism by history ?Ordered TSH for you 7. Depression ?Per history 8. Tobacco dependence - Counseled on cessation, offered nicotine patch for tobacco cravings 9. Class II obesity with BMI of 37.4 ?Weight loss advised 10. DVT prophylaxis ?Lovenox Charges/Coding Visit Charges Inpatient E&M: 63453 Subs Hosp L3
[2021-05-01] MEDS: Aspirin 81 MG TAB.CHEW PO (08:15)
[2021-05-01] MEDS: Metoprolol Tartrate 25 MG Tablet PO ×2 (08:15→20:50)
[2021-05-01] MEDS: hydroCHLOROthiazide 25 MG Tablet PO (08:22)
[2021-05-01] MEDS: Enoxaparin 40 MG/0.4 ML Syringe SC (08:24)
--- NOTE | 2021-05-01 10:35 | CASEMGMT ---
RN CM Face to Face with patient for initial transition planning/care coordination assessment. RN CM introduced self and role at [facility]. Patient lying in bed, alert and oriented. Patient willing to participate in assessment and is able to answer all questions appropriately. Care providers, pharmacy, and demographics verified. Patient wishes to discharge home, denies need for home health at this time. Patient states he has no further needs or concerns at this time. CM to follow for discharge planning needs that may arise. PCP: Raimundo Specialists: none Preferred Pharmacy: [facility] Insurance: [employer] Prescription Benefit: yes Living Will/HPOA: none, patient interested in completing, SW updated LNOK: brother, aunt Living Arrangements: Patient lives alone in a 2 story home with bed and bath on first floor. 2 steps and railing to enter the home. Patient states he is independent and able to ambulate stairs. Transportation: self, brother DME/HHC: Patient states he has shower chair, grab bars, and walker at home. No previous HHC or SNF Disposition Plan: Patient to discharge home with family support and follow-up plans in place. Ana CARTYN, RN, CM
--- NOTE | 2021-05-01 11:00 | CT_ITS ---
STUDY: CTA HEAD AND NECK WITH CONTRAST REASON FOR EXAM: Male, 56 years old. cva RADIATION DOSAGE (If Supplied By Facility): CTDIvol = ( 26.34 ) mGy, DLP = ( 767.72 ) mGycm TECHNIQUE: CT angiography was performed with a multi-detector CT scanner. Data acquisition was obtained from the skull base through the vertex following intravenous administration of IV 100mL Isovue-370. MIP images were reconstructed from the axial data set. Post-processing of the angiographic images was performed, with multiplanar reformation and 3D reconstruction. Individualized dose optimization techniques were used for this CT. COMPARISON: No relevant priors. FINDINGS: Normal bilateral petrous carotid arteries. There is calcified plaque formation of the right cavernous carotid artery, without a cross-sectional luminal stenosis. There is calcified plaque formation of the left cavernous carotid artery, without a cross-sectional luminal stenosis. Normal right A1 segments of the anterior cerebral artery. Normal left A1 segments of the anterior cerebral artery. Normal intact anterior communicating artery (ACOM). Normal bilateral A2 segments of the anterior cerebral arteries. Normal right M1 and M2 segments of the middle cerebral arteries, with a normal M1 bifurcation. Normal left M1 and M2 segments of the middle cerebral arteries, with a normal M1 bifurcation. Normal right posterior communicating artery (PCOM). Normal left posterior communicating artery (PCOM). Normal bilateral vertebral arteries. Normal basilar artery with a normal basilar bifurcation. The visualized bilateral superior cerebellar (SCA) arteries are normal. Normal bilateral P1, P2 and visualized P3 segments of the posterior cerebral arteries. There is no demonstrated aneurysm of the [place]. Cerebral atrophy. Stable decreased markings in a periventricular distribution of both hemispheres. Persistent hypodensity in the midbrain. Stable examination. Questionable old lacunar infarcts in the left basal ganglion. AORTIC ARCH: There is atherosclerotic calcific plaque formation of the aortic arch and great vessels arising from the aortic arch, without a hemodynamically significant stenosis. There is a normal origin of the brachiocephalic, left common carotid, and left subclavian arteries. RIGHT CAROTID ARTERIES: Normal right common carotid artery (CCA). Normal right common carotid bulb. There is mild atherosclerotic plaque formation of the origin of the right internal carotid artery with less than 50% cross sectional diameter stenosis. Normal visualized cervical portion of the right internal carotid artery. Normal origin of the right external carotid artery (ECA). LEFT CAROTID ARTERIES: Normal left common carotid artery (CCA). Normal left common carotid bulb. There is mild atherosclerotic plaque formation of the origin of the left internal carotid artery with less than 50% cross sectional diameter stenosis. Normal visualized cervical portion of the left internal carotid artery. Normal origin of the left external carotid artery (ECA). VERTEBRAL ARTERIES: Normal bilateral vertebral arteries. IMPRESSION: Minimal atherosclerotic plaque formation at the origins of both the right and left internal carotid arteries. Electronically Signed: Holger Enriquez MD at 11:59 EST , STUDY: CT BRAIN WITHOUT CONTRAST REASON FOR EXAM: Male, 56 years old. cva RADIATION DOSAGE (If Supplied By Facility): CTDIvol = ( 44.99 ) mGy, DLP = ( 846.73 ) mGycm TECHNIQUE: Transaxial CT imaging of the brain was performed without administration of intravenous contrast material. Individualized dose optimization techniques were used for this CT. COMPARISON: Comparison is made with prior study dated 04/30/2021. FINDINGS: Normal soft tissue structures. Normal calvarium. There is mild cerebral atrophy with widening of the extra-axial spaces and ventricular dilatation. There are areas of decreased attenuation within the white matter tracts of the supratentorial brain, consistent with microvascular disease changes. The findings suggest old lacunar infarcts in the left basal ganglia. Stable decreased attenuation of the brainstem. Normal cerebellum. There is no intracranial hemorrhage. There are no findings of an acute ischemic infarction. Normal visualized paranasal sinuses. CT/CTA Head AND Neck W/ Contrast IMPRESSION: Chronic involutional changes of the brain. Stable examination. Electronically Signed: Holger Enriquez MD at 12:00 EST ,
--- NOTE | 2021-05-01 12:48 | CASEMGMT ---
Social Work Pt with diagnosis of storke therefore PHQ9 depression screen completed. Score of 2/27 indicating minimal depression. Pt educated on correlation between stroke and depression. Pt understanding and with not concerns at this time. MINDY Watts
--- NOTE | 2021-05-01 12:48 | CASEMGMT ---
Social Work SW met with pt as pt is requesting to complete advance directives. SW assisted pt in completing Living Will and Health Care POA in which he named his brother Hany Velazquez. Copy placed on pt chart and original given to pt. MINDY Watts
[2021-05-01] MEDS: Atorvastatin Calcium 80 MG Tablet PO (20:50)
[2021-05-01] MEDS: hydrALAZINE 20 MG/ML Vial 5 MG IV (20:52)
[2021-05-02] VITALS (9 sets, daily range): BP systolic 157–180; BP diastolic 85–103; PULSE 57–69; RESP 18; TEMP 36.2–36.6; O2SAT 96–97
[2021-05-02] MEDS: 0.9% Normal Saline 1,000 ML 100 ML IV (06:02)
--- NOTE | 2021-05-02 07:35 | PN.HOSP_ITS ---
Subjective Subjective Patient seen blood pressure still remains elevated. Additional adjustment made to his antihypertensive regimen with addition of amlodipine 10 mg daily as well as hydralazine 25 mg p.o. 3 times daily. Objective Data Objective Data Vital Signs: Vital Signs Temp Pulse Resp BP Pulse Ox 97.3 F L 57 L 18 180/85 H 97 05/02/21 05:54 05/02/21 07:00 05/02/21 05:54 05/02/21 05:54 05/02/21 05:54 Oxygen Delivery Method Room Air Weight: 107 kg Body Mass Index (BMI) 35.9 Intake & Output: Intake and Output for Last 24 Hours 04/30/21 05/01/21 05/02/21 23:59 23:59 23:59 Intake Total 865 / 865 3900.00 / 3900.00 921.67 / 921.67 Output Total 200 / 200 300 / 300 Balance 665 / 665 3600.00 / 3600.00 921.67 / 921.67 Lab / Micro Data Result Diagrams: 05/01/21 04:36 05/01/21 04:36 Radiography Diagnostic Testing: Radiology Impression Head/Neck CTA 05/01/21 11:00 IMPRESSION: Chronic involutional changes of the brain. Stable examination. Electronically Signed: Holger Enriquez MD at 12:00 EST , Rhythm Strip Rhythm Strip: Sinus Rhythm Rate: 81 Ectopy: None Physical Exam Narrative GENERAL: cooperative HEENT: Atraumatic; EYES; Anicteric, Normal Conjunctiva NECK; supple, normal thyroid, RESPIRATORY: Diminished to auscultation CARDIOVASCULAR: Regular S1 S2, GI: soft, normoactive bowel sounds, : No Renal angle tenderness; EXTREMITIES: No edema, no clubbing, MUSCULOSKELETAL: no muscle wasting NEURO: Awake; no lateralizing signs. SKIN: No Rash PSYCH; Flat affect Assessment & Plan Assessment/Plan (1) Headache: (2) Hypertensive urgency: (3) Nicotine dependence: QUALIFIERS: Nicotine product type: cigarettes Substance use sta tus: uncomplicated Qualified Code(s): F17.210 - Nicotine dependence, cigarettes, uncomplicated (4) Pure hypercholesterolemia: (5) Essential (primary) hypertension: PLAN: Patient is 56-year-old gentleman presented with headache and loss of balance 1. Acute hypertensive urgency ?Patient was found to have markedly elevated blood pressure with systolic blood pressure greater than 260.. Patient did receive labetalol and hydralazine in the emergency department. Admitted to PCU. As part of his management patient was started on scheduled amlodipine HCTZ and hydralazine. This may be adjusted to lisinopril and beta-blockers given his history of coronary artery disease -05/01/2021; patient blood pressure still remains elevated currently 182/137 however this is within the permissive range given patient acute CVA -05/02/2021; Patient seen blood pressure still remains elevated. Additional adjustment made to his antihypertensive regimen with addition of amlodipine 10 mg daily as well as hydralazine 25 mg p.o. 3 times daily. 2. Acute CVA - possibly related related to patient uncontrolled blood pressure. Head CT obtained came back negative. MRI has been ordered to rule out posterior circulation CVA 05/01/2021; subsequent imaging studies with an MRI Small acute lacunar infarct within the right basal ganglion. Question acute versus chronic focal ischemic changes within both occipital lobes. Chronic periventricular microvascular changes. Case was discussed with [facility] neurology plan is to rule out embolic stroke with continuous director of staff development as well as possible event monitor at discharge. Patient scheduled to undergo subsequent evaluation with TTE patient was started on antiplatelet therapy with aspirin as well as statin therapy on admission 3. Headache - related to #1; Do expect improvement with treatment of underlying condition 4. Dyslipidemia ?Currently not on any medications patient started on statin therapy, lipid panel ordered for a.m. 5. Coronary artery disease ?With previous PCI currently not on any medication patient was started on antiplatelet therapy with aspirin as well as statin therapy. Do plan to add low-dose beta-blockers 6. Hypothyroidism by history ?Ordered TSH for you 7. Depression ?Per history 8. Tobacco dependence - Counseled on cessation, offered nicotine patch for tobacco cravings 9. Class II obesity with BMI of 37.4 ?Weight loss advised 10. DVT prophylaxis ?Lovenox Charges/Coding Visit Charges Inpatient E&M: 51673 Subs Hosp L2
[2021-05-02] MEDS: amLODIPine 10 MG Tablet PO (08:47)
[2021-05-02] MEDS: Aspirin 81 MG TAB.CHEW PO (08:47)
[2021-05-02] MEDS: hydrALAZINE 25 MG Tablet PO (08:47)
[2021-05-02] MEDS: Metoprolol Tartrate 25 MG Tablet PO (08:47)
[2021-05-02] MEDS: hydroCHLOROthiazide 25 MG Tablet PO (08:47)
[2021-05-02] MEDS: Enoxaparin 40 MG/0.4 ML Syringe SC (08:49)
--- NOTE | 2021-05-02 10:20 | DS.PCM_ITS ---
Providers Date of Admission: 04/30/21 Primary Care Physician: María Elena Eubanks DO Reason For Visit: TIA, ACUTE HYPERTENSIVE EMERGENCY Diagnosis Discharge Diagnosis (1) Headache: Status: Chronic Code(s): R51 - Headache (2) Hypertensive urgency: Status: Acute Code(s): I16.0 - Hypertensive urgency (3) Nicotine dependence: Status: Chronic Code(s): F17.200 - Nicotine dependence, unspecified, uncomplicated Qualifiers: Nicotine product type: cigarettes Substance use status: uncomplicated Qualified Code(s): F17.210 - Nicotine dependence, cigarettes, uncomplicated (4) Pure hypercholesterolemia: Status: Chronic Code(s): E78.00 - Pure hypercholesterolemia, unspecified (5) Essential (primary) hypertension: Status: Chronic Code(s): I10 - Essential (primary) hypertension Medications at Discharge Home Medications amlodipine 10 mg PO DAILY #90 tab 05/02/21 aspirin 81 mg PO BREAKFAST #60 tab 05/02/21 atorvastatin 80 mg PO QHS #60 tab 05/02/21 hydralazine 25 mg PO TID #180 tab 05/02/21 hydrochlorothiazide 25 mg PO DAILY #60 tab 05/02/21 metoprolol tartrate 25 mg PO BID #120 tab 05/02/21 Hospital Course Procedures 2-D Echocardiogram Summary of Care Provided Minutes Spent on Discharge: 40 Hospital Course: Patient is 56-year-old gentleman presented with headache and loss of balance 1. Acute hypertensive urgency ?Patient was found to have markedly elevated blood pressure with systolic blood pressure greater than 260.. Patient did receive labetalol and hydralazine in the emergency department. Admitted to PCU. As part of his management patient was started on scheduled amlodipine HCTZ and hydralazine. This may be adjusted to lisinopril and beta-blockers given his history of coronary artery disease -05/01/2021; patient blood pressure still remains elevated currently 182/137 however this is within the permissive range given patient acute CVA -05/02/2021; Patient seen blood pressure still remains elevated. Additional adjustment made to his antihypertensive regimen with addition of amlodipine 10 mg daily as well as hydralazine 25 mg p.o. 3 times daily. 2. Acute CVA - possibly related related to patient uncontrolled blood pressure. Head CT obtained came back negative. MRI has been ordered to rule out posterior circulation CVA 05/01/2021; subsequent imaging studies with an MRI Small acute lacunar infarct within the right basal ganglion. Question acute versus chronic focal ischemic changes within both occipital lobes. Chronic periventricular microvascular changes. Case was discussed with [facility] neurology plan is to rule out embolic stroke with continuous campus monitor as well as possible event monitor at discharge. Patient scheduled to undergo subsequent evaluation with TTE patient was started on antiplatelet therapy with aspirin as well as statin therapy on admission CTA of the head and neck obtained did show Minimal atherosclerotic plaque formation at the origins of both the right and left internal carotid arteries. -Patient was discharged home with a 30-day event monitor will result to be sent to patient primary care physician Dr Eubanks; the essence of this is to rule out paroxysmal A. fib 3. Headache - related to #1; Do expect improvement with treatment of underlying condition 4. Dyslipidemia ?Currently not on any medications patient started on statin therapy, lipid panel ordered for a.m. 5. Coronary artery disease ?With previous PCI currently not on any medication patient was started on antiplatelet therapy with aspirin as well as statin therapy. Do plan to add low-dose beta-blockers 6. Hypothyroidism by history ?Ordered TSH for you 7. Depression ?Per history 8. Tobacco dependence - Counseled on cessation, offered nicotine patch for tobacco cravings 9. Class II obesity with BMI of 37.4 ?Weight loss advised 10. DVT prophylaxis ?Lovenox Physical Exam Narrative GENERAL: cooperative HEENT: Atraumatic; EYES; Anicteric, Normal Conjunctiva NECK; supple, normal thyroid, RESPIRATORY: Diminished to auscultation CARDIOVASCULAR: Regular S1 S2, GI: soft, normoactive bowel sounds, : No Renal angle tenderness; EXTREMITIES: No edema, no clubbing, MUSCULOSKELETAL: no muscle wasting NEURO: Awake; no lateralizing signs. SKIN: No Rash PSYCH; Flat affect Weight / BMI Weight Weight: 107 kg Body Mass Index (BMI) 35.9 ABG / Lab / Microbiology Data Result Diagrams: 05/01/21 04:36 05/01/21 04:36 Radiography Diagnostic Testing: Radiology Impression Head/Neck CTA 05/01/21 11:00 IMPRESSION: Chronic involutional changes of the brain. Stable examination. Electronically Signed: Holger Enriquez MD at 12:00 EST , D/C Instructions Discharge Diet: No restrictions Discharge Activity: Return to Normal Activity Call your doctor if you observe: Fever of 101 or Higher, Shortness of breath, Fainting spells and Chest pain Meaningful Use Info Meaningful Use Diagnoses (Choose all that apply): Ischemic CVA CVA Therapy Assessed for PT,OT and/or ST?: Yes Ischemic Stroke Antithrombotic order at d/c?: Yes Dx of Atrial fib/flutter?: No Statins at discharge?: Yes Primary Dx Acute Ischemic CVA?: Yes IV tPA ordered during stay?: No Reason IV t-PA not ordered: Treatment not Indicated Discharge Plan Admission Admit Date/Time: 04/30/21 15:11 Attending Provider: Alexis Conn Primary Care Provider: María Elena Eubanks Discharge Orders/Prescriptions Prescriptions: New atorvastatin 80 mg Tablet 80 mg PO QHS Qty: 60 RF: 0 hydralazine 25 mg Tablet 25 mg PO TID Qty: 180 RF: 0 amlodipine 10 mg Tablet 10 mg PO DAILY Qty: 90 RF: 0 aspirin 81 mg Tablet,Chewable 81 mg PO BREAKFAST Qty: 60 RF: 0 hydrochlorothiazide 25 mg Tablet 25 mg PO DAILY Qty: 60 RF: 0 metoprolol tartrate 25 mg Tablet 25 mg PO BID Qty: 120 RF: 0 Discontinued Advil 100 mg Tablet 200 mg PO Q6H PRN (Reason: Pain) RF: 0 Other Ambulatory Orders: 30-Day Event Recorder (Routine) Location: None Selected Ordered By: Dr. Alexis Conn Referrals / Follow Up: María Elena Eubanks DO [Primary Care Provider] - Within 1 Week Disposition Disposition (needs filled in before D/C Order can be placed): Home, Self Care Charges/Coding Visit Charges Inpatient E&M: 53653 Disch Hosp
--- NOTE | 2021-05-02 11:01 | CASEMGMT ---
Per therapy, no further therapy recommended for pt at discharge. Pt declines need for any HHC or OP and any further resources at discharge. Rob GALLARDO CM
== END 2021-05-02 12:06 | disposition home or self-care (01) | DRG 304 ==
LOC: ED 10:40 → PCU 12:36
PROVIDERS: Admitting Provider Internal Medicine; Emergency Provider Emergency Medicine; PCP Internal Medicine; Visit Provider Internal Medicine
DX: I16.0 Hypertensive urgency (principal); I63.81 Other cerebral infarction due to occlusion or stenosis of small artery; E03.9 Hypothyroidism, unspecified; I25.10 Atherosclerotic heart disease of native coronary artery without angina pectoris; E78.5 Hyperlipidemia, unspecified; F17.210 Nicotine dependence, cigarettes, uncomplicated; I10 Essential (primary) hypertension; E78.00 Pure hypercholesterolemia, unspecified; E66.9 Obesity, unspecified; Z68.37 Body mass index [BMI] 37.0-37.9, adult; F32.A Depression, unspecified; R94.31 Abnormal electrocardiogram [ECG] [EKG]; Z95.5 Presence of coronary angioplasty implant and graft
CPT/HCPCS: 36415; 70450; 70496; 70498; 70551; 71045; 71275; 80048; 80053; 80061; 82077; 83735; 83880; 84100; 84443; 84484; 85025; 92610; 93005; 93306; 94762; 97161; 97165; 97802; 99251; 99285; 99406; J7030; Q9967; A4216; G0463

== ENCOUNTER 2021-05-09 15:50 | Outpatient (CLI) | payer BC, SELFPAY ==
[2021-05-09 17:13] LABS: Potassium 3.6 mmol/L (3.5-5.1)
== END 2021-05-09 23:59 | disposition home or self-care (01) ==
LOC: LAB 15:56
PROVIDERS: PCP Internal Medicine; Visit Provider Internal Medicine
DX: E87.5 Hyperkalemia (principal)
CPT/HCPCS: 36415; 84132

== ENCOUNTER 2022-11-27 15:14 | Observation (INO) | payer BC, SELFPAY ==
[2022-11-27] VITALS (10 sets, daily range): BP systolic 117–161; BP diastolic 60–104; PULSE 63–74; RESP 14–18; TEMP 36.1–36.7; O2SAT 93–96; BMI 39.1; BMI 40.4; BMI 37.5
--- NOTE | 2022-11-27 16:08 | CT_ITS ---
We are attempting to reach an attending provider to discuss findings. An addendum with communication details will be sent when the communication is complete. STUDY: CT BRAIN WITHOUT CONTRAST REASON FOR EXAM: Male, 57 years old. Neuro deficit, acute, stroke suspected RADIATION DOSAGE (If Supplied By Facility): CTDIvol = ( ) mGy, DLP = ( ) mGycm TECHNIQUE: Transaxial CT imaging of the brain was performed without administration of intravenous contrast material. Individualized dose optimization techniques were used for this CT. COMPARISON: 04/30/2021. FINDINGS: Normal soft tissue structures. Normal calvarium. Normal size ventricles and extra-axial spaces for the patient''s age. There are areas of decreased attenuation within the white matter tracts of the supratentorial brain, consistent with microvascular disease changes. There is no intracranial hemorrhage. There are no findings of an acute ischemic infarction. Normal visualized paranasal sinuses. CT/STROKE Brain/Head without Cont IMPRESSION: No acute findings. Microvascular ischemic changes. Electronically Signed: Pippa Yousif MD at 16:34 EDT Reading Location ID and State: [id number] / Tel , Service support ,
--- NOTE | 2022-11-27 16:08 | EKG12_ITS ---
Test Reason : STROKE Blood Pressure : / mmHG Vent. Rate : 066 BPM Atrial Rate : 066 BPM P-R Int : 170 ms QRS Dur : 090 ms QT Int : 394 ms P-R-T Axes : 058 065 056 degrees QTc Int : 413 ms Normal sinus rhythm Normal ECG Confirmed by DALE ORELLANA, KEVIN ([id number]), web editor DARCIE PEPPER ([id number]) on 12/01/2022 11:53:31 AM Referred By: SAYDA Confirmed By:KEVIN HUNTER MD
--- NOTE | 2022-11-27 16:10 | CT_ITS ---
We are attempting to reach an attending provider to discuss findings. An addendum with communication details will be sent when the communication is complete. EXAM: CT ANGIOGRAPHY HEAD AND NECK WITH INTRAVENOUS CONTRAST CLINICAL INDICATION: Neuro deficit, acute, stroke suspected TECHNIQUE: [place] [facility] [place]/head and neck CT angiography protocol performed with intravenous contrast. This CT exam was performed using one or more of the following dose reduction techniques: automated exposure control, adjustment of the mA and/or kV according to patient size, and/or use of iterative reconstruction technique. MIP reconstructed images were created and reviewed. CONTRAST: IV 100mL [id number] COMPARISON: 05/01/2021. FINDINGS: HEAD: RIGHT ANTERIOR CEREBRAL ARTERY: Unremarkable. No significant stenosis at the visualized segments. Anterior communicating artery is present. No aneurysm. RIGHT MIDDLE CEREBRAL ARTERY: Unremarkable. No significant stenosis at the visualized segments. No aneurysm. RIGHT POSTERIOR CEREBRAL ARTERY: Unremarkable. No occlusion or significant stenosis. No aneurysm. RIGHT INTRACRANIAL INTERNAL CAROTID ARTERY: Atherosclerotic calcification of the cavernous ICA without stenosis. No dissection or occlusion. RIGHT INTRACRANIAL VERTEBRAL ARTERY: Unremarkable. No significant stenosis. No dissection or occlusion. LEFT ANTERIOR CEREBRAL ARTERY: Unremarkable. No significant stenosis at the visualized segments. No aneurysm. LEFT MIDDLE CEREBRAL ARTERY: Unremarkable. No significant stenosis at the visualized segments. No aneurysm. LEFT POSTERIOR CEREBRAL ARTERY: Unremarkable. No occlusion or significant stenosis. No aneurysm. LEFT INTRACRANIAL INTERNAL CAROTID ARTERY: Atherosclerotic calcification of the cavernous ICA without stenosis. No dissection or occlusion. LEFT INTRACRANIAL VERTEBRAL ARTERY: Unremarkable. No significant stenosis. No dissection or occlusion. BASILAR ARTERY: Unremarkable. No significant stenosis. No aneurysm. OTHER VASCULATURE: No vascular malformation. NECK: RIGHT COMMON CAROTID ARTERY: Unremarkable. No significant stenosis. No dissection or occlusion. RIGHT EXTRACRANIAL INTERNAL CAROTID ARTERY: Mild atherosclerotic calcification of the proximal ICA without stenosis. No dissection or occlusion. RIGHT EXTERNAL CAROTID ARTERY: Unremarkable. No occlusion. RIGHT EXTRACRANIAL VERTEBRAL ARTERY: Unremarkable. No significant stenosis. No dissection or occlusion. LEFT COMMON CAROTID ARTERY: Mild atherosclerotic calcification of the left carotid bulb without stenosis. No dissection or occlusion. LEFT EXTRACRANIAL INTERNAL CAROTID ARTERY: Unremarkable. No significant stenosis. No dissection or occlusion. LEFT EXTERNAL CAROTID ARTERY: Unremarkable. No occlusion. LEFT EXTRACRANIAL VERTEBRAL ARTERY: Unremarkable. No significant stenosis. No dissection or occlusion. BRACHIOCEPHALIC AND SUBCLAVIAN ARTERIES: Unremarkable as visualized. No occlusion or significant stenosis. LUNG APICES: Unremarkable as visualized. HEAD and NECK: BONES/JOINTS: Unremarkable. No discrete lytic or blastic abnormalities. SOFT TISSUES: Unremarkable. CAROTID STENOSIS REFERENCE USING NASCET CRITERIA: % ICA stenosis = (1 - narrowest ICA diameter/diameter of distal cervical ICA) x 100. Mild - <50% stenosis. Moderate - 50-69% stenosis. Severe - 70-94% stenosis. Near occlusion - 95-99% stenosis. Occluded - 100% stenosis. CT/STROKE CTA Head AND Neck W/Con IMPRESSION: No acute findings. Mild atherosclerotic changes without stenosis. Electronically Signed: Pippa Yousif MD at 16:40 EDT Reading Location ID and State: [id number] / Tel , Service support ,
--- NOTE | 2022-11-27 16:12 | ED.VIS.STROK ---
HPI History of Present Illness Chief Complaint: Neuro S/Sx Detail of Chief Complaint: Right arm weakness, difficulty with memory Informant: patient Narrative Narrative: Patient presents to the emergency department for evaluation for possible stroke. Patient states that he woke up at 4 AM and he felt like he needed to roll over but could not do it so he closed his eyes went back to sleep. He woke up around 7 AM to go to work and he felt normal. Throughout the day coworkers told him he did not seem right. Patient states that he felt okay until about 130 when he started gradually developing a headache to the back part of his head. 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 Currently still has a headache to the back of his head that he rates an 8 out of 10. He denies current weakness. Denies trouble with vision or speech. Patient had with a thought was a TIA about a year ago. Has history of hypertension. [facility] Medical History (Updated 11/27/22 @ 18:35 by Kaye Zuniga) Anxiety and depression Atherosclerosis of coronary artery of [place] heart without angina pectoris Chest pain Chronic depression Chronic pain Coronary artery disease Diverticulitis Essential (primary) hypertension Headache History of non-ST elevation myocardial infarction (NSTEMI) (03/01/17) History of TIA (transient ischemic attack) (05/02/21) HTN (hypertension) Hypothyroidism Idiopathic intracranial hypertension Migraine Myocardial infarct Nicotine dependence Non-ST elevation (NSTEMI) myocardial infarction (02/2017) Obesity Pain in periorbital region of right eye Periorbital pain Pure hypercholesterolemia Segmental and somatic dysfunction of cervical region Segmental and somatic dysfunction of lumbar region Segmental dysfunction of thoracic region Smoker Trigeminal neuralgia Home Medications amlodipine 10 mg tablet 10 mg PO DAILY #90 tabs 05/02/21 [Rx Last Taken Unknown] aspirin 81 mg chewable tablet 81 mg PO BREAKFAST #60 tabs 05/02/21 [Rx Last Taken Unknown] atorvastatin 80 mg tablet 80 mg PO QHS #60 tabs 05/02/21 [Rx Last Taken Unknown] hydrochlorothiazide 25 mg tablet 25 mg PO DAILY #60 tabs 05/02/21 [Rx Last Taken Unknown] hydralazine 25 mg tablet 25 mg PO DAILY 11/27/22 [History Last Taken Unknown] levothyroxine 100 mcg tablet 100 mcg PO DAILY 11/27/22 [History Last Taken Unknown] meloxicam 7.5 mg tablet 7.5 mg PO DAILY 11/27/22 [History Last Taken Unknown] metoprolol tartrate 25 mg tablet 25 mg PO DAILY 11/27/22 [History Last Taken Unknown] Allergy/AdvReac Type Severity Reaction Status Date / Time Sulfa (Sulfonamide Allergy Other Verified 11/27/22 15:15 Antibiotics) Family History (Updated 04/30/21 @ 12:[address] Alexis Conn MD) Father CAD (coronary artery disease) coronary stents Kidney disease Mother CHF (congestive heart failure) Aortic valve replaced Brother Atrial fibrillation Surgical History History of appendectomy History of colectomy History of coronary artery stent placement (08/08/18) History of tonsillectomy History of uvulopalatopharyngoplasty Status post correction of deviated nasal septum Social History Smoking Status: Current every day smoker tobacco type: cigarettes alcohol intake: never caffeine: Yes Type: carbonated beverages Number of servings: 3 ROS ROS ED Review of Systems ROS Unobtainable: other Constitutional Constitutional ED: Reports lethargy; Denies chills, fever(s), sweats or weight loss Eyes Eyes: Denies blurry vision, change in vision or diplopia ENT ENT ED: Denies rhinorrhea or sore throat Cardiovascular Cardiovascular: Denies chest pain, orthopnea or racing heartbeat Respiratory/Chest Respiratory/Chest: Denies cough, dyspnea, dyspnea on exertion, orthopnea or sputum Gastrointestinal Gastrointestinal: Denies abdominal pain, diarrhea, nausea or vomiting Genitourinary Genitourinary ED: Denies dysuria, hematuria or urinary frequency Musculoskeletal Musculoskeletal: Denies arthralgias, back pain, myalgias or neck pain Integumentary Denies abscess, Abrasions or rash Neurologic Neurologic: Reports headache(s) and weakness Psychiatric Psychiatric: Denies anxiety, depression or suicidal thoughts Endocrine Endocrinology: Denies polydipsia, polyphagia or polyuria Hematologic/Lymphatic Hematologic/Lymphatic: Denies easy bleeding, easy bruising or lymphadenopathy Allergic/Immunologic Allergic/Immunologic ED: Denies mouth swelling, tongue swelling or urticaria EXAM Physical Exam Narrative Exam Narrative: For stroke. He went to bed last evening around 8 PM and was normal but woke up at 4 AM with this not being able to roll over in bed. Patient then subsequently woke up at 7 AM and felt back to normal and started having headache and then some changes associate with some weakness in his right arm and some forgetfulness. Stroke team called on evaluation of the patient by myself. It was not felt that he would be a thrombolytic candidate given last known well time last evening at 8 PM. Patient's symptoms mostly resolved on my exam he had some decree sensation to the left leg only. Patient was evaluated by stroke neurologist who agrees that he is not a thrombolytic candidate. It was recommended patient be admitted for this stroke work-up including MRI. Patient with elevated blood pressures here and a headache. We will discuss case with hospitalist to evaluate patient for admission. His initial head CT showed microvascular changes but no acute intracranial hemorrhage. CTA of the head and neck were unremarkable. Const Vital Signs: 11/27/22 15:16 11/27/22 16:24 11/27/22 16:08 Temperature 97.9 F 97.9 F Temperature Source Temporal Temporal Pulse Rate 72 73 72 Respiratory Rate 18 18 14 Blood Pressure 161/104 H 148/95 H Blood Pressure Mean 123 112 Pulse Ox 94 96 93 Oxygen Delivery Method Room Air Room Air Room Air 11/27/22 16:38 11/27/22 17:08 11/27/22 17:30 Temperature 96.9 F L Temperature Source Temporal Pulse Rate 74 70 70 Respiratory Rate 18 18 14 Blood Pressure 160/99 H 152/99 H 150/88 H Blood Pressure Mean 119 116 108 Pulse Ox 95 96 95 Oxygen Delivery Method Room Air Room Air Room Air Positive well nourished and well developed General Appearance ED: well developed and NAD HEENT Reports TM's clear and moist mucous membranes normocephalic and atraumatic; Negative for trauma or tenderness Tympanic Membrane ED: Yes TM's clear Eyes PERRL and EOMs intact bilaterally General Eye ED: Negative for pale conjunctiva or scleral icterus Neck no lymphadenopathy, supple and no JVD General: Negative for tenderness Chest Wall inspection of chest normal and palpation of chest normal Chest: Negative for tenderness Resp normal respiratory effort and clear to auscultation bilaterally Effort and Inspection: Negative for respiratory distress or pain with movement Auscultation: Negative for rhonchi, wheezes or diminished lung sounds Cardio regular rate, regular rhythm, S1 normal heart sound, S2 normal heart sound and no murmurs Peripheral Pulses: pulses 2+ throughout GI normal to inspection, nondistended, normoactive bowel sounds, soft to palpation, non-tender, non-distended and no masses Back/Spine no CVA tenderness and no thoracic nor lumbar tenderness Extremity normal to inspection Extremity Narrative: NIH stroke scale is a 1 for some slightly decreased sensation to the left leg compared to the right. No focal weakness noted. Facial droop and no slurred speech. General Extremety ED: Negative for edema General Extremity: Negative for edema Neuro oriented x3, CN's II-XII intact bilaterally, no sensory deficits noted and gait normal Sensorium / Orientation: awake, alert, oriented to person, oriented to place and oriented to time Motor Exam: strength 5/5 throughout and strength abnormal Psych mental status grossly normal Skin no rashes or lesions noted and no wounds MDM MDM MDM Narrative Medical decision making narrative: Patient presents with concern for possible stroke. After evaluation a stroke team was called. It is not felt patient was a thrombolytic candidate as last known well was 8 PM last night. Patient seen by stroke neurologist who is in agreement. Initial NIH stroke scale was a 1 for some decree sensation to the left leg compared to the right. No obvious focal deficits noted. CBC with differential obtained showed a normal white count of 15.2 with hemoglobin of 16 and platelet count of 321. Chemistries unremarkable. Troponin normal at 8. EKG obtained showed a sinus rhythm with a rate of 66 bpm with no acute ST segment changes. CT scan of the brain showed microvascular changes but no acute stroke or bleed. CTA head and neck were unremarkable. Case discussed with hospitalist will evaluate patient for admission. Lab Data Attestation: I reviewed the patient's lab results. Labs: Laboratory Results - last 24 hr 11/27/22 11/27/22 16:15 16:23 WBC 15.2 H RBC 5.35 Hgb 16.3 Hct 47.9 MCV 89.5 MCH 30.5 MCHC 34.0 RDW Std Deviation 45.6 H RDW Coeff of Bob 13.8 Plt Count 321 MPV 9.2 Immature Gran % (Auto) 0.300 Neut % (Auto) 73.5 H Lymph % (Auto) 15.8 L [place] % (Auto) 6.9 Eos % (Auto) 3.0 Baso % (Auto) 0.5 Absolute Neuts (auto) 11.2 H Absolute Lymphs (auto) 2.40 Nucleated RBC % 0 PT 13.4 INR 1.0 APTT 35.6 Sodium 135 L Potassium 3.4 L Chloride 106 Carbon Dioxide 24.0 Anion Gap 5 BUN 28 H Creatinine 1.36 H Estim Creat Clear Calc 57.28 Est GFR (MDRD) Af Amer 69 Est GFR (MDRD) Non-Af 57 L BUN/Creatinine Ratio 20.6 H Glucose 102 Hemoglobin A1c 5.7 H Calcium 9.0 Total Bilirubin 0.30 Direct Bilirubin 0.10 AST 17 ALT 24 Alkaline Phosphatase 74 Troponin I High Sens 8 Total Protein 7.1 Albumin 3.6 Globulin 3.5 Triglycerides 124 Cholesterol 201 H LDL Cholesterol 141 H VLDL Cholesterol 25 HDL Cholesterol 35 L TSH 3.04 POC Glucose 118 H Radiography Diagnostic Testing: Clinical Impression(s) from Imaging Studies Brain CT 11/27/22 16:08 IMPRESSION: No acute findings. Microvascular ischemic changes. Electronically Signed: Pippa Yousif MD at 16:34 EDT Reading Location ID and State: Xuan Camejo MD Tel , Service support , ADDENDUM: 11/27/22 1704 IMPRESSION: No acute findings. Microvascular ischemic changes. Electronically Signed: Pippa Yousif MD at 16:34 EDT Reading Location ID and State: Xuan Camejo MD Tel , Service support , Head/Neck CTA 11/27/22 16:10 IMPRESSION: No acute findings. Mild atherosclerotic changes without stenosis. Electronically Signed: Pippa Yousif MD at 16:40 EDT Reading Location ID and State: Xuan Camejo MD Tel , Service support , ADDENDUM: 11/27/22 1704 IMPRESSION: No acute findings. Mild atherosclerotic changes without stenosis. N.B. : The above Results were Read Back by Pippa Yousif MD to Emeka Mcmillan DO, and understanding confirmed on 11/27/2022 16:58:57 (ET). Electronically Signed: Pippa Yousif MD at 16:40 EDT Reading Location ID and State: [id number] / Tel , Service support , Chest X-Ray 11/27/22 16:25 IMPRESSION: No radiographic evidence of acute cardiopulmonary disease. Electronically Signed: Pippa Yousif MD at 16:51 EDT Reading Location ID and State: [id number] / Tel , Service support , 1 view chest x-ray obtained interpreted by myself as no evidence of acute process such as infiltrate or pneumothorax. Radiology in agreement. EKG Initial EKG: Attestation: I personally reviewed and interpreted this EKG as follows: Comments: Sinus rhythm with a rate of 66 bpm with no acute ST segment changes Discharge Plan Dx/Rx/DC Orders Clinical Impression: Brain TIA, Headache, Hypertension Disposition Disposition: Acute Care Hospital [facility] Discharge Date/Time: 11/27/22 18:11
--- NOTE | 2022-11-27 16:12 | CM.ED ---
Social Work Referral Source: Stroke alert Referral Reason: emotional support SW responded to stroke alert, no family in patient's room and patient out of room for testing. SW remains available if needs arise. Judy MOTTA, SHASHI
--- NOTE | 2022-11-27 16:20 | ED.RN ---
attempted to call [facility] at [phone] with no answer.
--- NOTE | 2022-11-27 16:25 | RAD_ITS ---
INDICATION: Neuro deficit, acute, stroke suspected EXAMINATION/TECHNIQUE: X-RAY - XR Chest 1 View COMPARISON: 04/30/2021. FINDINGS: LINES/DEVICES: None. LUNGS: No consolidation, edema or effusion. No pneumothorax. MEDIASTINUM AND CARDIOVASCULAR STRUCTURES: Cardiac silhouette not enlarged. Central airways and mediastinal contour are unremarkable. BONES AND SOFT TISSUES: Unremarkable. RAD/Chest 1 View IMPRESSION: No radiographic evidence of acute cardiopulmonary disease. Electronically Signed: Pippa Yousif MD at 16:51 EDT Reading Location ID and State: [id number] / Tel , Service support ,
[2022-11-27 16:53] LABS: Absolute Neutrophil Count 11.2 X10^3/uL (2.0-7.7); Basophil# 0.08 X10^3/uL; Basophil% 0.5 % (0-1); Eosinophil# 0.45 X10^3/uL; Hematocrit 47.9 % (40-54); Hemoglobin 16.3 g/dL (13.0-16.5); Lymphocyte % 15.8 % (19-41); Mean Corpuscular Hgb 30.5 pg (27.0-32.0); Mean Corpuscular Volume 89.5 fL (80-94); Mean Platelet Vol. 9.2 fl (6.2-12.0); Monocyte# 1.05 X10^3/uL; Monocyte% 6.9 % (0-10); NRBC Flagged by Analyzer 0 % (0-5); Neutrophil # 11.16 X10^3/uL (2.7-7.7); Neutrophil % 73.5 % (47-70); Platelet Count 321 K/mm3 (150-450); RBC Distribution Width CV 13.8 % (11.6-14.6); RBC Distribution Width SD 45.6 fl (35.1-43.9); Red Blood Count 5.35 M/mm3 (4.6-6.2); White Blood Count 15.2 K/mm3 (4.4-11.0)
[2022-11-27 17:06] LABS: Anion Gap 5 (5-15); BUN 28 mg/dL (7-18); BUN/Creat Ratio 20.6 RATIO (10-20); Chloride 106 mmol/L (98-107); Creatinine, Serum 1.36 mg/dL (0.70-1.30); EST Glomerular Filtration Rate 57 mL/min (>60); Est Glom Filt Rate - Afr Amer 69 mL/min (>60); Estimated Creatinine Clearance 57.28 ml/min; Glucose 102 mg/dL (74-106); Potassium 3.4 mmol/L (3.5-5.1); Sodium Level 135 mmol/L (136-145); Troponin-I HS 8 pg/mL (3.0-78.0)
[2022-11-27 17:25] LABS: Prothrombin Time (Protime)PT. 13.4 SECONDS (11.7-14.9)
[2022-11-27 17:26] LABS: Partial Thromboplast Time 35.6 Seconds (24.1-36.2)
--- NOTE | 2022-11-27 17:39 | HP.PCM.HOS_ITS ---
HPI - General General Date of Admission: 11/27/22 Date of Service: 11/27/22 Chief Complaint: CVA rule out HPI Narrative EVARISTO HAYNES, is a 57 M with history of TIA in 2021, CAD s/p stenting in 2018, hypertension, hyperlipidemia and hypothyroidism who presented to [facility] ED on 11/27/22 as a stroke alert. Patient seen at bedside in the ED. Sitting up in bed comfortably, conversing normally, no acute distress. Patient reports mild numbness/tingling in his upper right lip, otherwise denies any other acute symptoms right now. Headache has improved. Feels less mentally foggy than he did earlier today. He denies any fevers or chills, chest pain, shortness of breath, abdominal pain, nausea/vomiting, lightheadedness or dizziness. No other acute concerns currently. Vitals in ED notable for hypertension to systolic 160s, otherwise unremarkable. Labs notable for WBC count 15, hemoglobin 16.3, platelets 321, INR 1.0, sodium 135, potassium 3.4, chloride 106, bicarb 24, BUN 28, creatinine 1.36. EKG shows normal sinus rhythm, no ST changes. Chest x-ray nonacute. CT head showed microvascular ischemic changes with no acute findings. CTA head/neck showed mild atherosclerotic changes without stenosis, no acute findings. [facility] Medical History (Updated 11/27/22 @ 18:35 by Kaye Zuniga) Anxiety and depression Atherosclerosis of coronary artery of [place] heart without angina pectoris Chest pain Chronic depression Chronic pain Coronary artery disease Diverticulitis Essential (primary) hypertension Headache History of non-ST elevation myocardial infarction (NSTEMI) (03/01/17) History of TIA (transient ischemic attack) (05/02/21) HTN (hypertension) Hypothyroidism Idiopathic intracranial hypertension Migraine Myocardial infarct Nicotine dependence Non-ST elevation (NSTEMI) myocardial infarction (02/2017) Obesity Pain in periorbital region of right eye Periorbital pain Pure hypercholesterolemia Segmental and somatic dysfunction of cervical region Segmental and somatic dysfunction of lumbar region Segmental dysfunction of thoracic region Smoker Trigeminal neuralgia Home Medications amlodipine 10 mg tablet 10 mg PO DAILY #90 tabs 05/02/21 [Rx Last Taken Unknown] aspirin 81 mg chewable tablet 81 mg PO BREAKFAST #60 tabs 05/02/21 [Rx Last Taken Unknown] atorvastatin 80 mg tablet 80 mg PO QHS #60 tabs 05/02/21 [Rx Last Taken Unknown] hydrochlorothiazide 25 mg tablet 25 mg PO DAILY #60 tabs 05/02/21 [Rx Last Taken Unknown] hydralazine 25 mg tablet 25 mg PO DAILY 11/27/22 [History Last Taken Unknown] levothyroxine 100 mcg tablet 100 mcg PO DAILY 11/27/22 [History Last Taken Unknown] meloxicam 7.5 mg tablet 7.5 mg PO DAILY 11/27/22 [History Last Taken Unknown] metoprolol tartrate 25 mg tablet 25 mg PO DAILY 11/27/22 [History Last Taken Unknown] Allergy/AdvReac Type Severity Reaction Status Date / Time Sulfa (Sulfonamide Allergy Other Verified 11/27/22 15:15 Antibiotics) Family History (Updated 04/30/21 @ 12:[address] Alexis Conn MD) Father CAD (coronary artery disease) coronary stents Kidney disease Mother CHF (congestive heart failure) Aortic valve replaced Brother Atrial fibrillation Surgical History History of appendectomy History of colectomy History of coronary artery stent placement (08/08/18) History of tonsillectomy History of uvulopalatopharyngoplasty Status post correction of deviated nasal septum Social History Smoking Status: Current every day smoker tobacco type: cigarettes alcohol intake: never caffeine: Yes Type: carbonated beverages Number of servings: 3 ROS Constitutional Constitutional: Denies change in weight, chills, fatigue, fever(s) or weakness Eyes Eyes: Denies change in vision ENT HEENT: Denies dysphagia Cardiovascular Cardiovascular: Denies chest pain or lightheadedness Respiratory/Chest Respiratory/Chest: Denies cough or shortness of breath at rest Gastrointestinal Gastrointestinal: Denies abdominal pain, constipation, diarrhea, nausea or vomiting Genitourinary Genitourinary: Denies dysuria Neurologic Neurologic: Reports headache(s) and numbness; Denies abnormal speech, confusion, dizziness, focal weakness or paresthesias Vital Signs Vital Signs Vital Signs: 11/27/22 15:16 11/27/22 16:24 11/27/22 16:08 Temperature 97.9 F 97.9 F Temperature Source Temporal Temporal Pulse Rate 72 73 72 Respiratory Rate 18 18 14 Blood Pressure 161/104 H 148/95 H Blood Pressure Mean 123 112 Pulse Ox 94 96 93 Oxygen Delivery Method Room Air Room Air Room Air 11/27/22 16:38 11/27/22 17:08 11/27/22 17:30 Temperature 96.9 F L Temperature Source Temporal Pulse Rate 74 70 70 Respiratory Rate 18 18 14 Blood Pressure 160/99 H 152/99 H 150/88 H Blood Pressure Mean 119 116 108 Pulse Ox 95 96 95 Oxygen Delivery Method Room Air Room Air Room Air Weight Weight: 120.5 kg Body Mass Index (BMI) 40.4 Physical Exam Const alert and oriented x3 Constitutional Narrative: Pleasant middle-age male, obese, sitting comfortably in bed, conversing normally, no acute distress. General Appearance: cooperative and comfortable HEENT normocephalic, head/scalp atraumatic, hearing grossly normal bilaterally, nasal mucous membranes and turbinates normal and moist oral mucous membranes Eyes PERRL, EOMs intact bilaterally and conjunctivae normal Neck full ROM, no lymphadenopathy and supple Lymph Lymphatic: no lymphadenopathy noted Chest inspection of chest normal Resp normal respiratory effort, normal air movement, no use of accessory muscles and clear to auscultation bilaterally Cardio regular rate, regular rhythm, no murmurs and peripheral pulses 2+ throughout GI normal to inspection, nondistended, normoactive bowel sounds, soft to palpation, non-tender and non-distended Back/Spine normal ROM Extremity normal to inspection, full ROM and no pedal edema Skin no rashes or lesions noted Neuro moves all extremities and no focal motor deficits Neuro Narrative: Grossly normal. Psych mental status grossly normal Results Lab / Micro Data 11/27/22 16:15 11/27/22 16:15 Labs: Laboratory Results - last 24 hr 11/27/22 16:15: WBC 15.2 H, RBC 5.35, Hgb 16.3, Hct 47.9, MCV 89.5, MCH 30.5, MCHC 34.0, RDW Std Deviation 45.6 H, RDW Coeff of Bob 13.8, Plt Count 321, MPV 9.2, Immature Gran % (Auto) 0.300, Neut % (Auto) 73.5 H, Lymph % (Auto) 15.8 L, [place] % (Auto) 6.9, Eos % (Auto) 3.0, Baso % (Auto) 0.5, Absolute Neuts (auto) 11.2 H, Absolute Lymphs (auto) 2.40, Nucleated RBC % 0, PT 13.4, INR 1.0, APTT 35.6, Sodium 135 L, Potassium 3.4 L, Chloride 106, Carbon Dioxide 24.0, Anion Gap 5, BUN 28 H, Creatinine 1.36 H, Estim Creat Clear Calc 57.28, Est GFR (MDRD) Af Amer 69, Est GFR (MDRD) Non-Af 57 L, BUN/Creatinine Ratio 20.6 H, Glucose 102, Calcium 9.0, Troponin I High Sens [address] 11/27/22 16:08 IMPRESSION: No acute findings. Microvascular ischemic changes. Electronically Signed: Pippa Yousif MD at 16:34 EDT Reading Location ID and State: [place] / Tel , Service support , ADDENDUM: 11/27/22 1704 IMPRESSION: No acute findings. Microvascular ischemic changes. Electronically Signed: Pippa Yousif MD at 16:34 EDT Reading Location ID and State: [place] / Tel , Service support , Head/Neck CTA 11/27/22 16:10 IMPRESSION: No acute findings. Mild atherosclerotic changes without stenosis. Electronically Signed: Pippa Yousif MD at 16:40 EDT Reading Location ID and State: [place] / Tel , Service support , ADDENDUM: 11/27/22 1704 IMPRESSION: No acute findings. Mild atherosclerotic changes without stenosis. N.B. : The above Results were Read Back by Pippa Yousif MD to Emeka Mcmillan DO, and understanding confirmed on 11/27/2022 16:58:57 (ET). Electronically Signed: Pippa Yousif MD at 16:40 EDT Reading Location ID and State: [place] / Tel , Service support , Chest X-Ray 11/27/22 16:25 IMPRESSION: No radiographic evidence of acute cardiopulmonary disease. Electronically Signed: Pippa Yousif MD at 16:51 EDT Reading Location ID and State: [id number] / Tel , Service support , Assessment & Plan Assessment/Plan (1) Brain TIA: PLAN: Plan Patient is a 57-year-old male with history of TIA in 2021, CAD s/p stenting in 2019, hypertension, hyperlipidemia and hypothyroidism who presented to [facility] ED on 11/27/22 as a stroke alert. 1. Right arm weakness and difficulty with memory, CVA rule out Presented as a stroke alert. Last known well was 8 PM on 11/26/2022. Reported symptoms of transient right arm weakness this afternoon, memory difficulty and headache. Symptoms largely resolved on presentation to ED. NIHSS score of 1. CT head showed microvascular ischemic changes with no acute findings. CTA head/neck showed mild atherosclerotic changes without stenosis, no acute findings. EKG showed normal sinus rhythm. Hypertensive to 160s in ED. ? Admit under observation status to PCU. Teleneurology evaluated in ED, following labs ordered per their recommendations: MRI brain without contrast, echo, lipid panel, A1c, UA, PT/OT/case management consult, speech therapy consult. Stroke protocol ordered. Aspirin and statin on home medication list but patient was not taking, restarted both. Okay for permissive hypertension for systolic BP greater than 140 for first 24 hours. 2. Leukocytosis ? WBC count of 15. Likely secondary to acute stress with mild dehydration. Low concern for infectious etiology. Follow-up a.m. CBC, hold on further work-up at this time. Chronic medical conditions: ? CAD, hypertension: Continue home amlodipine 10 mg daily, hydrochlorothiazide 25 mg daily. Reportedly on home Lopressor 25 mg daily, will increase this to 20 mg twice daily for now. Hold home hydralazine 25 mg daily. ? Hypothyroidism: Continue home Synthroid. DVT prophylaxis: SCDs CODE STATUS: Full code, verified Expected disposition: Home, 1 to 2 days Total clinical time spent by myself addressing the patient's medical issues, reviewing all the data, and collaborating with patient's care team: 55 minutes. Charges/Coding Visit Charges Inpatient E&M: 25993 Init Hosp L2
[2022-11-27 18:48] LABS: Bedside Glucose 118 mg/dL (74-106)
--- NOTE | 2022-11-27 18:55 | MRI_ITS ---
ACR Level 3 findings have been noted. An addendum which confirms receipt of the report will follow. STUDY: MRI BRAIN WITHOUT CONTRAST REASON FOR EXAM: Male, 57 years old. CVA rule out, rt arm weakness, temporarily unable to write, headache, compare to CT TECHNIQUE: Standardized multiplanar fat and water weighted pulse sequences were obtained. COMPARISON: CT head 11/27/2022. BRAIN AND EXTRA-AXIAL SPACES: No intracranial mass, mass effect, or midline shift. No acute hemorrhage. Foci of restricted diffusion in the left frontal and parietal white matter and left posterior parietal lobe consistent with small infarcts in the left MCA distribution. T2 signal hyperintense foci in the white matter are consistent with microvascular ischemia. Mild cerebral atrophy with widening of the extra-axial spaces and ventricular dilation. Basal cisterns are unremarkable. SELLA: Pituitary gland is normal in height. AUDITORY SYSTEM: Unremarkable. BONES/JOINTS: Unremarkable. SINUSES: Unremarkable as visualized. Clear. MASTOID AIR CELLS: Unremarkable as visualized. Clear. ORBITS: Unremarkable as visualized. VASCULATURE: Normal flow voids in the major intracranial circulation. MRI/Brain without Contrast IMPRESSION: 1. Small acute lacunar infarcts in the left MCA distribution. 2. Chronic microvascular ischemic changes. Electronically Signed: Pippa Yousif MD at 21:53 EDT Reading Location ID and State: [id number] / Tel , Service support ,
--- NOTE | 2022-11-27 18:55 | ECHOD_ITS ---
Reason For Study: TIA/CVA Procedure This was a 2D Doppler, Color Flow transthoracic echocardiogram. Exam performed portable in patient room. Left Ventricle Normal LV size. Left ventricular systolic function is normal. The estimated ejection fraction is 65 %. No regional wall motion abnormalities noted. Right Ventricle Normal RV size. Normal systolic function. Atria Normal left atrium. Normal right atrium. Mitral Valve Normal mitral valve. Tricuspid Valve Normal tricuspid valve. Aortic Valve Normal aortic valve. Pulmonic Valve Normal pulmonic valve. Great Vessels Normal aortic root. The pulmonary artery is normal size. Normal inferior vena cava. Pericardium/Pleural No pericardial effusion. MMode/2D Measurements & Calculations LVIDd: 4.4 cm IVSd: 1.3 cm Ao root diam: 3.3 cm LVIDs: 3.0 cm LVPWd: 1.1 cm RVDd: 3.6 cm FS: 31.0 % LAV(MOD-bp): 38.4 ml LVAd ap4: 33.3 cm2 SV(MOD-sp4): 76.1 ml LAV(MOD-bp) Indexed: 17.2 ml/m2 LVLd ap4: 8.3 cm LAV(MOD-sp2): 36.5 ml EDV(MOD-sp4): 112.3 ml LAV(MOD-sp4): 35.3 ml EDV(sp4-el): 113.0 ml LVAs ap4: 17.2 cm2 LVLs ap4: 7.2 cm ESV(MOD-sp4): 36.2 ml ESV(sp4-el): 35.2 ml EF(MOD-sp4): 67.8 % EF(sp4-el): 68.8 % SV(sp4-el): 77.8 ml LA A4 area: 16.1 cm2 LA dimension(2D): 3.3 cm RA A4 area: 17.6 cm2 TAPSE: 2.1 cm Time Measurements MV dec time: 0.19 sec Doppler Measurements & Calculations MV E max reilly: 88.3 cm/sec Lat Peak E' Reilly: 10.2 cm/sec Med Peak E' Reilly: 8.4 cm/sec MV A max reilly: 97.5 cm/sec E/E' lat: 8.6 E/E' med: 10.5 MV E/A: 0.91 MV V2 max: 104.7 cm/sec Ao V2 max: 151.2 cm/sec MV max P.4 mmHg MV dec slope: 453.6 cm/sec2 Ao max P.2 mmHg MV V2 mean: 58.0 cm/sec Ao V2 mean: 100.2 cm/sec MV mean P.6 mmHg Ao mean P.6 mmHg MV V2 VTI: 40.9 cm Ao V2 VTI: 33.4 cm AV (velocity ratio): 0.90 LV V1 max: 142.9 cm/sec PA V2 max: 136.0 cm/sec LV V1 max P.2 mmHg PA V2 mean: 88.5 cm/sec LV V1 mean P.2 mmHg LV V1 mean: 95.1 cm/sec LV V1 VTI: 30.1 cm ECHO/Echo Complete Interpretation Summary Normal LV size. Left ventricular systolic function is normal. The estimated ejection fraction is 65 %. Previous negative bubble study. Structurally normal valves. Ordering Physician: Emerson Wong Referring Physician: María Elena Eubanks M.D. Performed By: Zora Pepper RCS
[2022-11-27] MEDS: LORazepam 2 MG/ML Syringe 0.5 MG IV (19:41)
[2022-11-27] MEDS: 0.9% Saline Lock 10 ML Syringe IV (19:43)
[2022-11-27 20:58] LABS: Hemoglobin A1c 5.7 % (3.8-5.6)
[2022-11-27 20:59] LABS: AST(SGOT) 17 U/L (15-37); Alanine Aminotransfer ALT/SGPT 24 U/L (16-61); Albumin, Serum 3.6 g/dL (3.2-5.0); Alkaline Phosphatase 74 U/L (45-117); Cholesterol 201 mg/dL (200); Globulin 3.5 g/dL (2.2-4.2); High Density Lipoprotein 35 mg/dL; Protein, Total 7.1 g/dL (6.4-8.2); Thyroid Stim Hormone (TSH) 3.04 uIU/mL (0.358-3.74); Triglycerides 124 mg/dL; Very Low Density Lipoprotein 25 mg/dL (5-40)
[2022-11-27 21:51] LABS: Bacteria 0 SEEN /hpf (None Seen); Mucous, Urine 0 SEEN /hpf (<or=2+); Red Blood Cells-Urine 0 SEEN /hpf (0-5); Squamous Epithelial Cells - UA 0 SEEN /hpf (0-5); White Blood Cells 0 SEEN /hpf (0-5)
[2022-11-27 22:02] LABS: Color, Urine Yellow (Yellow); Glucose, Dipstick Normal (Normal); Ketone-Dipstick Negative (Negative); Leukocyte Esterase-Dipstick Negative /ul (Negative); Nitrite-Dipstick Negative (Negative); Occult Blood-Urine Negative /ul (Negative); Protein-Dipstick 30 mg/dl (Negative); Urine Bilirubin Dipstick Negative (Negative); Urine Clarity Clear (Clear); Urine Urobilinogen Normal (Normal)
[2022-11-28] VITALS (9 sets, daily range): BP systolic 121–156; BP diastolic 65–94; PULSE 60–68; RESP 18; TEMP 36.5–36.8; O2SAT 90–94; BMI 37.5
[2022-11-28] MEDS: Levothyroxine 100 MCG Tablet PO (05:49)
[2022-11-28] MEDS: Aspirin 81 MG TAB.CHEW PO (09:37)
[2022-11-28] MEDS: hydroCHLOROthiazide 25 MG Tablet PO (09:37)
[2022-11-28] MEDS: Metoprolol Tartrate 25 MG Tablet PO (09:38)
[2022-11-28] MEDS: Enoxaparin 40 MG/0.4 ML Syringe SC (09:41)
[2022-11-28] MEDS: amLODIPine 10 MG Tablet PO (09:41)
[2022-11-28] MEDS: Meloxicam 7.5 MG Tablet PO (09:41)
--- NOTE | 2022-11-28 12:25 | CASEMGMT ---
Addendum entered by Tim Marcus 11/28/22 14:53: 1330: ST has evaluated pt and OP ST is recommended. Pt is not sure if he is wishing to go for OP ST and he states it will depend on if he improves/symptoms resolve. He states he will also take a script for OP ST to have in case he decides to go. He was made aware that this can also be taken to OP location of choice that does OP ST and discussed locations in [place] that does this. He voices understanding and denies having further d/c needs/concerns. Original Note: PAULINA AGUILAR NOTE: RN CM to room. Pt sitting up in recliner chair, awake/alert/oriented. Introduced self and role. PT/OT evals have been reviewed. Pt ambulated 150 ft today w/CGA and no use of AD, but was sl unsteady a couple of times. PT state no additional therapy recommended. OT states additional therapy recommended. Discussed discharge planning. Pt states he feels safe to return home. Discussed therapy and made aware of recommendations by OT. Pt states he may be interested in doing OP therapy, but he is not sure if he will do it or not, but he is willing to take a script for it. He was made aware, if he does decide to OP therapy, he can take script to location of choice. He voices understanding. Pt states he lives alone, uses no DME, and states has no transportation concerns. Family will take him home @ discharge. He denies having any further discharge planning needs or concerns. ST eval pending. PAULINA AGUILAR to follow for any recommendations. Plan: Home w/possible OP PT/OT and ST. Eugene PHAM RN, CM
--- NOTE | 2022-11-28 15:25 | DCINST_ITS ---
Discharge Instructions Diet Discharge Diet: No restrictions Activity Discharge Activity: Return to Normal Activity Return to work on:: 12/07/22 Weight Bearing Status: Full weight bearing Follow Up Care Test Results: Test results from this visit will be discussed in further detail at your follow- up appointment, if applicable. Discharge Plan Admission Admit Date/Time: 11/27/22 17:46 Primary Reason for Your Visit: acute stroke Attending Provider: Lee Calabrese Primary Care Provider: María Elena Eubanks Consulting Providers: Emerson Wong Instructions Additional Instructions / Restrictions: If you feel that you need speech therapy, give your prescription to your family doctor to set this up Discharge Orders/Prescriptions Prescriptions: New atorvastatin 80 mg Tablet 80 mg PO QHS Qty: 30 0RF hydrochlorothiazide 25 mg Tablet 25 mg PO DAILY Qty: 30 0RF metoprolol tartrate 25 mg Tablet 25 mg PO BID Qty: 60 0RF Continued amlodipine 10 mg Tablet 10 mg PO DAILY Qty: 90 0RF aspirin 81 mg Tablet,Chewable 81 mg PO BREAKFAST Qty: 60 0RF meloxicam 7.5 mg tablet 7.5 mg PO DAILY Patient Comments: 1 (ONE) TABLET TWICE DAILY NEEDED FOR PAIN levothyroxine 100 mcg tablet 100 mcg PO DAILY Patient Comments: TAKE 1 TABLET BY MOUTH EVERY DAY DIRECTED hydralazine 25 mg Tablet 25 mg PO DAILY Discontinued atorvastatin 80 mg Tablet 80 mg PO QHS Qty: 60 0RF hydrochlorothiazide 25 mg Tablet 25 mg PO DAILY Qty: 60 0RF metoprolol tartrate 25 mg Tablet 25 mg PO DAILY Referrals / Follow Up: María Elena Eubanks, [Primary Care Provider] - Within 1 Week Disposition Disposition (needs filled in before D/C Order can be placed): Home, Self Care
--- NOTE | 2022-11-28 15:31 | DS.PCM_ITS ---
Providers Date of Admission: 11/27/22 Date of Discharge: 11/28/22 Primary Care Physician: María Elena Eubanks DO Reason For Visit: CVA RULE OUT Diagnosis Discharge Diagnosis (1) Brain TIA: Status: Acute Code(s): G45.9 - Transient cerebral ischemic attack, unspecified Plan #1. Acute lacunar infarcts in the left CVA distribution #2 essential hypertension #3 atherosclerotic heart disease #4 hyperlipidemia #5 noncompliance with medical regimen Medications at Discharge Home Medications amlodipine 10 mg tablet 10 mg PO DAILY #90 tabs 05/02/21 aspirin 81 mg chewable tablet 81 mg PO BREAKFAST #60 tabs 05/02/21 hydralazine 25 mg tablet 25 mg PO DAILY 11/27/22 levothyroxine 100 mcg tablet 100 mcg PO DAILY 11/27/22 meloxicam 7.5 mg tablet 7.5 mg PO DAILY 11/27/22 atorvastatin 80 mg tablet 80 mg PO QHS #30 tabs 11/28/22 hydrochlorothiazide 25 mg tablet 25 mg PO DAILY #30 tabs 11/28/22 metoprolol tartrate 25 mg tablet 25 mg PO BID #60 tabs 11/28/22 Hospital Course Operations None Procedures 2-D Echocardiogram Summary of Care Provided Minutes Spent on Discharge: 31 Hospital Course: This 57-year-old white male was seen in the emergency room at [facility] with complaints of right arm numbness and weakness, he also complained of a headache. Patient denied any speech or vision difficulties. Stroke team was called for evaluation of the patient, it was felt that he was not a thrombolytic candidate given the last known well time was over 12 hours from the time he was seen in the emergency room. It was recommended that the patient be admitted for stroke work-up including an MRI, initial CT showed microvascular changes but no acute intracranial process, CT of the head and neck was unremarkable. Patient's blood pressure was noted to be elevated. Patient was placed in observation status on PCU, he underwent an MRI of the brain which show ed lacunar infarcts in the distribution of the left MCA, patient's echocardiogram was unremarkable. Patient was seen by PT and OT and speech therapy, PT and OT felt that the patient did not need follow-up with speech therapy thought that the patient may need follow-up but wanted to leave it to the patient to decide. He was given a prescription for outpatient speech therapy. In checking with the patient's pharmacy, it was evident that the patient was not taking many of his medications, I talked to his PCP (Dr. Eubanks) and made her aware that he was being noncompliant with his medications and that the patient would call for an appointment this upcoming week. Patient was also smoking prior to coming into the hospital, I had a discussion with him about this-told him he absolutely should not smoke-and asked him if he wanted any nicotine patches as a prescription and he said no, patient stated that he could handle it on his own. On 11/28/2022, patient was seen and examined: On examination he appeared in good health and spirits. Vital signs as documented. Skin warm and dry and without overt rashes. Neck without JVD, neck was supple, trachea midline, thyroid was normal. Lungs clear bilaterally, normal air movement was noted. Heart exam notable for regular rhythm, normal sounds and absence of murmurs, rubs or gallops. Abdomen unremarkable and without evidence of organomegaly, masses, or abdominal aortic enlargement. Bowel sounds are present, abdomen is not distended. Extremities nonedematous, no cyanosis was noted, no clubbing was noted. Neuro: Cranial nerves II through XII are grossly intact, no focal motor deficits were noted, sensation to light touch and pinprick intact, motor exam 5/5 throughout. Psych: Patient is alert and oriented x3, he does not appear anxious or depressed, he does not appear agitated. Patient appears stable for discharge home on 11/28/2022. Weight / BMI Weight Weight: 112.1 kg Body Mass Index (BMI) 37.5 ABG / Lab / Microbiology Data 11/27/22 16:15 11/27/22 16:15 Laboratory: Laboratory Results - last 24 hr 11/27/22 16:15: WBC 15.2 H, RBC 5.35, Hgb 16.3, Hct 47.9, MCV 89.5, MCH 30.5, MCHC 34.0, RDW Std Deviation 45.6 H, RDW Coeff of Bob 13.8, Plt Count 321, MPV 9.2, Immature Gran % (Auto) 0.300, Neut % (Auto) 73.5 H, Lymph % (Auto) 15.8 L, [place] % (Auto) 6.9, Eos % (Auto) 3.0, Baso % (Auto) 0.5, Absolute Neuts (auto) 11.2 H, Absolute Lymphs (auto) 2.40, Nucleated RBC % 0, PT 13.4, INR 1.0, APTT 35.6, Sodium 135 L, Potassium 3.4 L, Chloride 106, Carbon Dioxide 24.0, Anion Gap 5, BUN 28 H, Creatinine 1.36 H, Estim Creat Clear Calc 57.28, Est GFR (MDRD) Af Amer 69, Est GFR (MDRD) Non-Af 57 L, BUN/Creatinine Ratio 20.6 H, Glucose 102, Hemoglobin A1c 5.7 H, Calcium 9.0, Total Bilirubin 0.30, Direct Bilirubin 0.10, AST 17, ALT 24, Alkaline Phosphatase 74, Troponin I High Sens 8, Total Protein 7.1, Albumin 3.6, Globulin 3.5, Triglycerides 124, Cholesterol 201 H, LDL Cholesterol 141 H, VLDL Cholesterol 25, HDL Cholesterol 35 L, TSH 3.04 11/27/22 16:23: POC Glucose 118 H 11/27/22 21:32: Urine Color Yellow, Urine Clarity Clear, Urine pH 5.0, Ur Specific [place] 1.020, Urine Protein 30 H, Urine Glucose (UA) Normal, Urine Ketones Negative, Urine Occult Blood Negative, Urine Nitrite Negative, Urine Bilirubin Negative, Urine Urobilinogen Normal, Ur Leukocyte Esterase Negative, Urine RBC 0 SEEN, Urine WBC 0 SEEN, Ur Squamous Epith Cells 0 SEEN, Urine Bacteria 0 SEEN, Urine Mucus 0 SEEN Radiography Diagnostic Testing: Radiology Impression Brain CT 11/27/22 16:08 IMPRESSION: No acute findings. Microvascular ischemic changes. Electronically Signed: Pippa Yousif MD at 16:34 EDT Reading Location ID and State: [place] / Tel , Service support , ADDENDUM: 11/27/22 1704 IMPRESSION: No acute findings. Microvascular ischemic changes. Electronically Signed: Pippa Yousif MD at 16:34 EDT Reading Location ID and State: [place] MD Tel , Service support , Head/Neck CTA 11/27/22 16:10 IMPRESSION: No acute findings. Mild atherosclerotic changes without stenosis. Electronically Signed: Pippa Yousif MD at 16:40 EDT Reading Location ID and State: [place] MD Tel , Service support , ADDENDUM: 11/27/22 1704 IMPRESSION: No acute findings. Mild atherosclerotic changes without stenosis. N.B. : The above Results were Read Back by Pippa Yousif MD to Emeka Mcmillan DO, and understanding confirmed on 11/27/2022 16:58:57 (ET). Electronically Signed: Pippa Yousif MD at 16:40 EDT Reading Location ID and State: [place] MD Tel , Service support , Chest X-Ray 11/27/22 16:25 IMPRESSION: No radiographic evidence of acute cardiopulmonary disease. Electronically Signed: Pippa Yousif MD at 16:51 EDT Reading Location ID and State: [place] MD Tel , Service support , Brain MRI 11/27/22 18:55 IMPRESSION: 1. Small acute lacunar infarcts in the left MCA distribution. 2. Chronic microvascular ischemic changes. Electronically Signed: Pippa Yousif MD at 21:53 EDT Reading Location ID and State: [place] MD Tel , Service support , ADDENDUM: 11/27/22 4299 IMPRESSION: 1. Small acute lacunar infarcts in the left MCA distribution. 2. Chronic microvascular ischemic changes. N.B. : Jigna Diaz RN, confirmed on 11/27/2022 22:32:21 (ET) that the healthcare facility has received the radiology report. Electronically Signed: Pippa Yousif MD at 21:53 EDT , Echocardiogram 11/27/22 18:55 Interpretation Summary Normal LV size. Left ventricular systolic function is normal. The estimated ejection fraction is 65 %. Previous negative bubble study. Structurally normal valves. Ordering Physician: Emerson Wong Referring Physician: María Elena Eubanks M.D. Performed By: Zora Pepper RCS D/C Instructions Discharge Diet: No restrictions Return to work on: 12/07/22 Weight Bearing Status: Full weight bearing Meaningful Use Info Meaningful Use Diagnoses (Choose all that apply): Ischemic CVA CVA Therapy Assessed for PT,OT and/or ST?: Yes Ischemic Stroke Antithrombotic order at d/c?: Yes Dx of Atrial fib/flutter?: No Anticoagulant at discharge?: No Reason anticoagulant not ordered: Treatment not Indicated Statins at discharge?: Yes Primary Dx Acute Ischemic CVA?: Yes IV thrombolytic ordered during stay?: Yes Reason IV thrombolytic not ordered: Treatment not Indicated Discharge Plan Admission Admit Date/Time: 11/27/22 17:46 Primary Reason for Your Visit: acute stroke Attending Provider: Lee Calabrese Primary Care Provider: María Elena Eubanks Consulting Providers: Emerson Wong Instructions Additional Instructions / Restrictions: If you feel that you need speech therapy, give your prescription to your family doctor to set this up Discharge Orders/Prescriptions Prescriptions: New atorvastatin 80 mg Tablet 80 mg PO QHS Qty: 30 0RF hydrochlorothiazide 25 mg Tablet 25 mg PO DAILY Qty: 30 0RF metoprolol tartrate 25 mg Tablet 25 mg PO BID Qty: 60 0RF Continued amlodipine 10 mg Tablet 10 mg PO DAILY Qty: 90 0RF aspirin 81 mg Tablet,Chewable 81 mg PO BREAKFAST Qty: 60 0RF meloxicam 7.5 mg tablet 7.5 mg PO DAILY Patient Comments: 1 (ONE) TABLET TWICE DAILY NEEDED FOR PAIN levothyroxine 100 mcg tablet 100 mcg PO DAILY Patient Comments: TAKE 1 TABLET BY MOUTH EVERY DAY DIRECTED hydralazine 25 mg Tablet 25 mg PO DAILY Discontinued atorvastatin 80 mg Tablet 80 mg PO QHS Qty: 60 0RF hydrochlorothiazide 25 mg Tablet 25 mg PO DAILY Qty: 60 0RF metoprolol tartrate 25 mg Tablet 25 mg PO DAILY Referrals / Follow Up: María Elena Eubanks DO [Primary Care Provider] - Within 1 Week Disposition Disposition (needs filled in before D/C Order can be placed): Home, Self Care Charges/Coding Visit Charges Inpatient E&M: 62042 Disch Hosp >30min
--- NOTE | 2022-11-28 15:53 | CASEMGMT ---
Social Work Pt completed PHQ-9 w/pt, no indication of depression at this time. SANTANA Blue
--- NOTE | 2022-11-28 18:41 | NURSING ---
Reviewed charting with Apollo Bowers RN
== END 2022-11-28 15:31 | disposition home or self-care (01) ==
LOC: ED 17:46 → PCU 18:05
PROVIDERS: Admitting Provider Hospitalist; Emergency Provider Emergency Medicine; PCP Internal Medicine; Visit Provider Internal Medicine
DX: I63.81 Other cerebral infarction due to occlusion or stenosis of small artery (principal); I10 Essential (primary) hypertension; E78.00 Pure hypercholesterolemia, unspecified; Z79.82 Long term (current) use of aspirin; I25.10 Atherosclerotic heart disease of native coronary artery without angina pectoris; Z79.899 Other long term (current) drug therapy; Z91.199 Patient's noncompliance with other medical treatment and regimen due to unspecified reason; I25.2 Old myocardial infarction; E03.9 Hypothyroidism, unspecified; Z79.890 Hormone replacement therapy
CPT/HCPCS: 70450; 70496; 70498; 70551; 71045; 80048; 80061; 80076; 81001; 82962; 83036; 84443; 84484; 85025; 85610; 85730; 92523; 93005; 93306; 94762; 96372; 96374; 97161; 97166; 99221; 99285; Q9967; A4216; G0378

== ENCOUNTER 2022-12-14 09:00 | Outpatient (RCR) | payer BC, SELFPAY ==
--- NOTE | 2022-12-07 14:40 | HP.PTEVAL_ITS ---
Patient's Visit Information Visit Information Visit Information: EVARISTO HAYNES is a 57 year old M referred to Physical Therapy by Dr. María Elena Eubanks DO with a diagnosis of CVA. Date of Evaluation: 12/07/22 Physical Therapist: Olegario Zavala, DPT, OCS, CSCS Visit Plan Plan: Pt is doing well now with balance and mobility. Testing does not necessitate skilled intervention nor does pt wish to pursue it. He will be evaluated for cognitive deficits in speech. Subjective Subjective: Had a stroke 10 days ago, woke up at 3 am and could not move body one way or another. went back to sleep adn was fine in the am. As the day went on he was writing on chart on wall and r hand went numb. Went to ER, did catscan and MRI and EKG. No treatment according to patient. Continues to have random cognition, random numbness r hand intermittently, occasional in R side of tongue. Initially for 3 days felt R leg was collapsing but not lately. Feels strong. Balance is good. No falls in last 3 days, Was falling last week due to R leg giving out. Lives alone, two story with steps that he does not need to use. Two steps to enter without railing which is no problem. basic ADLs and meal prep are going Ok. 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 Drove to PT without a problem. Not feel safe to return to work. Hobbies include cards and bowling but has not been doing them. No cane or walker needed. Sleep is OK. Big concern is random numbness. Occasional difficult finding words he wants to use, could not read note when got out of the hospital. 95% better overall. Objective Objective: A&Ox3, sometimes has hard times finding right words. Walks back to PT without gait deviations, I. Trasnfer chair and bed I. Steps reciprocal without rail up and down. squat and stoop and recover I. LB AROM stiff in flexion but funcitonal LE AROM WFL and without asymmetries, HS mod tight at -30 90/90 test B. reflexes 2/3 patella and achilles B Sensation EL WNL to gross light touch in B LE. Strength in B LE is symmetrical and 4+ in hips, 5/5 in knees and 4+/5 in ankles all directions. coordination to reciprocal toe and heel tap is symmetrical and normal. heel to meza test looks good. No evidence of R LE giving out today. SLS is 10+ seconds B without asymmetries. Balance/Special Test Scores Functional Gait Assessment Score: 30 % Disability: 0 CATSIB Score (Max score 120 seconds): 120 Lower Extremity Functional Score: 69 Anticipated Interventions Text: Thank you for the opportunity to evaluate your patient. For Medicare and Medicare HMO plans, please review the plan of care and approve it. It will need to be FAXED BACK to us at [phone] for Medicare purposes. For Medicare only, by signing this I certify the plan of care. Please let me know if there are questions or concerns regarding this plan of care. Physician Signature: Date:
--- NOTE | 2022-12-07 17:09 | HP.SP.EV_ITS ---
History History Date of Eval: 12/07/22 Attending Doctor: Referring Doctor: Reason for Referral: CVA/BALANCE RX HERE Medical Diagnosis (from RX): cva Previous speech therapy: No Other Relevant Medical History/Diagnoses/Surgery: Andrea is a 57 year old male who was seen at for a speech and language evaluation. Pt had a stroke a week ago and had trouble getting out of bed & numb fingers. 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 Pt's education level is high school and pt lives alone. Pt also had a stroke a year as well, but he was not as affected. His cognition and facial droop. Pt right side was weak this time and left side was weak last time. Pt has occasional word finding problems. Pt denies issues with eating or swallowing. Pt also had a heart attack 3 years ago. Smoking Status: Heavy Smoker (>10/day) Hx Smoking: Yes Hx Tobacco Use: Yes Hx Smoking Exposure: Yes Pain Is pain an issue with your current prescribed condition?: No Personal Preferred language: [place] Patient Allergies Allergies Allergies: Allergies Sulfa (Sulfonamide Antibiotics) Allergy (Verified 11/27/22 15:15) Other Objective Cog/Ling/Com Test Administered Iunifyxkz-Vnbrjhbdaq-Srlawvodiexzn Assessment Administered: Yes Addzciqiq-Vnbhpiyuda-Afvqrczovhwlk Assessment: Cognitive ? Linguistic skills were evaluated using patient/family interview, skilled observation and informal evaluation through tasks completed by the patient. Orientation Orientation: Person, Place, Date, Day, Birthdate and Medical Diagnosis Answer Yes/No Questions Simple: WNL Complex: WNL Follows Commands 1 Step: WNL 2 Step: WNL Complex: Moderate Naming Responsive naming: WFL Naming in categories: Mild [place]: WNL Abstract: Mild Conversational Tasks Conversational Tasks: Mild Comments: occasional anomia in conversation Comments Comments: Pt has been having difficulty with completing complex ADL's and tasks that require complex cognitive skills such as playing games on his phone, reading, writing, completing complex ADL such as finances, cooking, medication management, scheduling etc. Reading Comprehension Words: WNL Phrases: WNL Sentences: Moderate Writing Words: Mild Sentences: Mild Medication Reading a medication label: WNL and WFL Correctly stating instructions of medications: Mild Completing medications independently: Mild CLQT CLQT CLQT Administered: Yes CLQT: Cognitive Linguistic Quick Test (CLQT) is a criterion - referenced assessment designed for adults between the ages of 18 and 89 with known or suspected neurological dysfuntions. The CLQT is to assess strength and weaknesses in five cognitive domains. Severity ratings are within normal limits, mild, moderate, severe deficits. The subtests are as follows: Date: 12/07/22 Attention Attention: WNL Memory Memory: WNL Executive Functions Executive Functions: WNL Language Language: WNL Visuospatial Skills Visuospatial Skills: WNL Composite Severity Rating Composite Severity Rating: WNL Clock Drawing Severity Rating Clock Drawing Severity Rating: WNL CLQT Comments Pt stated that these tasks are more difficult for him to complete since the stroke. He was often able to figure out how to complete the task, but it required increased focus and he does not believe he has returned to PLOF: -: see above Reference: Neuro-QoL instrument In past 7 days I had to read something several times to understand it: Very often (several times a day) My thinking was slow: Never I had to work really hard to pay attention or i would make a mistake: Never I had trouble concentrating: Never How much DIFFICULTY do you currently reading & following complex instructions (e.g. directions for new medication: Somewhat planning for & keeping appts that are not part of weekly routine: None managing your time to do most of your daily activities: None learning new tasks or instructions: Somewhat Neuro-QOL Score Raw Score: 32 T - Score: 47.1 Radiation Oncology Patient Plan Plan Plan: Will recommend Pt for weekly outpatient speech therapy to address mild to mod cognitive impairment characterized by deficits in memory, executive functioning, attention, following directions and completing complex ADL's such as finances and medication management, Pt would benefit from training in compens atory strategies to aid her memory, as well as cognitive training to improve cognitive functioning. Without treatment, Pt will be at risk to struggle to complete tasks of daily living and decrease level of independence. Recommendations MBS: No Treatment Warranted: Yes Treatment Warranted: Receptive/ Expressive Language and Cognition Progress Prognosis: Excellent Frequency Frequency: 1x/Week Duration: 2-4 Months Goals that are Established Determination:: Goals will be added/modified as deemed necessary and appropriate. Therapy will be discontinued when results of re-evaluation indicate therapy is no longer needed or lack of progress has been documented. Goal #1-5 Goal #1: Pt independently will complete complex problem solving, reasoning, and executive function tasks including but not limited to functional ADL (i.e. managing finances, safety awareness, paying bills, medication management, meal planning, using cellphone) with 90% acc during 3 sessions. Goal #2: Pt will modify environment at home via implementing cognitive compensatory strategies evaluation as measured by scores of 3 on a self-report checklist during 3 sessions. Goal #3: Pt will complete basic to mod complex immediate, short-term, and working memory tasks with 90% acc independently across 3/4 measured opportunities. Goal #4: Pt will complete basic to complex reading comprehension and writing tasks with 90% acc over 3 sessions Education Patient has Indicated that the Following Identified Educational Needs: None The Patient has indicated that they have no educational or learning abilities that may effect their care.: Yes Patient Instruction Patient Education: Diagnosis, Treatment Plan and Goals Person Taught: Patient and Family Teaching Method: Discussion and Demonstration Response to teaching: Verbalize understanding
--- NOTE | 2023-01-04 11:49 | HP.SP.DC_ITS ---
ST Discharge Summary Discharged: Discharge: Pt was seen for initial speech/language/cognitive evaluation at [facility] on 12/07/22 s/p cva. Pt attended 1 additional consecutive session following initial evaluation to cognition, attention, problem solving/reasoning, memory, and executive functioning. Pt suffered from another stroke and is current being treated in [place], [place] at [facility]. Pt is being discharged from the case load on 01/04/23 due to a change in health status. Thank you for letting me participate in your plan of care. Will reevaluate at Pt?s request following script from physician upon discharge from rehabilitation facility.
== END 2022-12-14 19:00 | disposition home or self-care (01) ==
LOC: SP 09:00
PROVIDERS: PCP Internal Medicine; Referring Provider Internal Medicine; Visit Provider Internal Medicine
DX: R26.89 Other abnormalities of gait and mobility (principal); G31.84 Mild cognitive impairment of uncertain or unknown etiology; Z86.73 Personal history of transient ischemic attack (TIA), and cerebral infarction without residual deficits
CPT/HCPCS: 92507; 92523; 97161

== ENCOUNTER 2022-12-15 17:01 | Emergency (ER) | payer BC, SELFPAY ==
[2022-12-15 17:02] VITALS: BP 144/93; PULSE 78; RESP 16; TEMP 36.6; O2SAT 95; BMI 39.8
[2022-12-15 17:22] VITALS: O2SAT 98
[2022-12-15] MEDS: Aspirin 81 MG TAB.CHEW 324 MG PO (17:28)
--- NOTE | 2022-12-15 17:29 | ED.VIS.CHEST ---
HPI <CARYN Garrett - Last Filed: 12/15/22 20:22> History of Present Illness Chief Complaint: Chest Pain Narrative Narrative: 57-year-old male with PMH of HTN, HLD, CAD with 2 stents in 2019, TIA presents with chest pain that started around 4:30 PM at rest. He describes it as a midsternal sharp pain lasting 10 seconds that comes and goes intermittently. It lasted for about 30 minutes and has resolved. He felt mildly short of breath with that but denies radiation of pain or nausea or vomiting. He states after having his stents placed 4 years ago he has not followed up with a slp teacher. He takes aspirin 81 mg daily. He is not sure if he was supposed to be on blood thinners or not. He smokes 1 PPD x40 years. No history of DVT/PE or risk factors. PFSH <CARYN Garrett - Last Filed: 12/15/22 20:22> [facility] Medical History (Updated 12/15/22 @ 20:14 by CARYN Garrett) Anxiety and depression Atherosclerosis of coronary artery of [place] heart without angina pectoris Brain TIA Chest pain Chronic depression Chronic pain Coronary artery disease Diverticulitis Essential (primary) hypertension Headache History of non-ST elevation myocardial infarction (NSTEMI) (03/01/17) History of TIA (transient ischemic attack) (05/02/21) HTN (hypertension) Hypothyroidism Idiopathic intracranial hypertension Migraine Myocardial infarct Nicotine dependence Non-ST elevation (NSTEMI) myocardial infarction (02/2017) Obesity Pain in periorbital region of right eye Periorbital pain Pure hypercholesterolemia Segmental and somatic dysfunction of cervical region Segmental and somatic dysfunction of lumbar region Segmental dysfunction of thoracic region Smoker Trigeminal neuralgia Home Medications amlodipine 10 mg tablet 10 mg PO DAILY #90 tabs 05/02/21 [Rx Last Taken Unknown] aspirin 81 mg chewable tablet 81 mg PO BREAKFAST #60 tabs 05/02/21 [Rx Last Taken Unknown] hydralazine 25 mg tablet 25 mg PO DAILY 11/27/22 [History Last Taken Unknown] levothyroxine 100 mcg tablet 100 mcg PO DAILY 11/27/22 [History Last Taken Unknown] meloxicam 7.5 mg tablet 7.5 mg PO DAILY 11/27/22 [History Last Taken Unknown] atorvastatin 80 mg tablet 80 mg PO QHS #30 tabs 11/28/22 [Rx Last Taken Unknown] hydrochlorothiazide 25 mg tablet 25 mg PO DAILY #30 tabs 11/28/22 [Rx Last Taken Unknown] metoprolol tartrate 25 mg tablet 25 mg PO BID #60 tabs 11/28/22 [Rx Last Taken Unknown] Allergy/AdvReac Type Severity Reaction Status Date / Time Sulfa (Sulfonamide Allergy Other Verified 12/15/22 17:01 Antibiotics) Family History (Updated 04/30/21 @ 12:[address] Alexis Conn MD) Father CAD (coronary artery disease) coronary stents Kidney disease Mother CHF (congestive heart failure) Aortic valve replaced Brother Atrial fibrillation Surgical History History of appendectomy History of colectomy History of coronary artery stent placement (08/08/18) History of tonsillectomy History of uvulopalatopharyngoplasty Status post correction of deviated nasal septum Social History Smoking Status: Heavy Smoker (>10/day) alcohol intake: never caffeine: Yes Type: carbonated beverages Number of servings: 3 ROS <CARYN Garrett - Last Filed: 12/15/22 20:22> ROS ED ROS Narrative Constitutional: Negative for fever, chills, malaise. CVS: Positive for chest pain. Negative for palpitations,syncope. Respiratory: Negative for shortness of breath, cough, orthopnea. GI: Negative for abdominal pain, nausea, vomiting, diarrhea, constipation, melena, hematochezia. Neuro: Negative for headache. EXAM <CARYN Garrett - Last Filed: 12/15/22 20:22> Physical Exam Narrative Exam Narrative: CONST: Patient sitting in no acute distress. EYES: Normal inspection. NECK: Normal inspection. RESP: No respiratory distress, CTAB. CVS: Regular rate and rhythm, no murmur, no gallop. ABD: Soft and nontender, no guarding or rebound, nondistended. SKIN: Color normal, no rash, warm, dry, intact. EXTREMITIES: Normal appearance, no pedal edema. 2+ radial and PT pulses. NEURO: Oriented x4. PSYCH: Normal affect. Const Vital Signs: 12/15/22 17:02 12/15/22 17:02 12/15/22 17:22 Temperature 97.9 F Temperature Source Oral Pulse Rate 78 Respiratory Rate 16 Respiratory Effort Normal Non-Labored Blood Pressure 144/93 H Blood Pressure Mean 110 Pulse Ox 95 98 Oxygen Delivery Method Room Air Room Air 12/15/22 19:31 12/15/22 20:18 12/15/22 20:18 Temperature Temperature Source Pulse Rate 69 71 73 Respiratory Rate 18 19 H 19 H Respiratory Effort Blood Pressure 122/85 H 130/84 H 130/84 H Blood Pressure Mean 97 99 99 Pulse Ox 94 95 95 Oxygen Delivery Method Room Air Room Air <Dr. Jose Ramon Weiss MD - Last Filed: 12/15/22 19:45> Physical Exam Const Vital Signs: 12/15/22 17:02 12/15/22 17:02 12/15/22 17:22 Temperature 97.9 F Temperature Source Oral Pulse Rate 78 Respiratory Rate 16 Respiratory Effort Normal Non-Labored Blood Pressure 144/93 H Blood Pressure Mean 110 Pulse Ox 95 98 Oxygen Delivery Method Room Air Room Air 12/15/22 19:31 12/15/22 20:18 12/15/22 20:18 Temperature Temperature Source Pulse Rate 69 71 73 Respiratory Rate 18 19 H 19 H Respiratory Effort Blood Pressure 122/85 H 130/84 H 130/84 H Blood Pressure Mean 97 99 99 Pulse Ox 94 95 95 Oxygen Delivery Method Room Air Room Air <CARYN Garrett - Last Filed: 12/15/22 20:22> Heart Score Score: 3 <Dr. Jose Ramon Weiss MD - Last Filed: 12/15/22 19:45> Heart Score History: Slightly/Non-Suspicious ECG: Normal Age: >45 - <65 years Risk Factors: >/= 3 Risk Factors or History of CAD Troponin: </= Normal Limit Score: 3 MDM <CARYN Garrett - Last Filed: 12/15/22 20:22> [facility] MDM Narrative Medical decision making narrative: Patient had brief sharp chest pain lasting 10 seconds each that has resolved. He appears well and nontoxic. Vital signs stable. His cardiopulmonary exam is within normal limits. Abdomen soft and nontender. Upper/lower extremity pulses equal and symmetric. EKG is normal sinus rhythm at 81 bpm with no ischemic changes and serial enzymes are 6 and 7 ruling out ACS. He has a white count of 17.0 but no signs or symptoms of infection. He is also slightly hemoconcentrated. BMP shows chronic kidney disease with BUN of 28, creatinine 1.55. CXR shows no acute process. Patient has not had chest pain during his 3+ hour ED stay and is comfortable with discharge home. He has an appointment with Dr. Rosaura Drake in 1 month but was instructed to return if he develops new symptoms in the interim. He was discharged in stable condition. Differential: ACS, GERD, pneumonia, no risk factors for PE Lab Data Attestation: I reviewed the patient's lab results. Labs: Laboratory Results - last 24 hr 12/15/22 12/15/22 17:08 19:30 WBC 17.0 H RBC 5.68 Hgb 17.7 H Hct 50.9 MCV 89.6 MCH 31.2 MCHC 34.8 RDW Std Deviation 44.0 H RDW Coeff of Bob 13.5 Plt Count 366 MPV 9.4 Immature Gran % (Auto) 0.400 Neut % (Auto) 71.6 H Lymph % (Auto) 16.5 L [place] % (Auto) 7.9 Eos % (Auto) 3.0 Baso % (Auto) 0.6 Absolute Neuts (auto) 12.2 H Absolute Lymphs (auto) 2.80 Nucleated RBC % 0 Sodium 134 L Potassium 4.0 Chloride 104 Carbon Dioxide 23.0 Anion Gap 7 BUN 28 H Creatinine 1.55 H Estim Creat Clear Calc 50.26 Est GFR (MDRD) Af Amer 59 L Est GFR (MDRD) Non-Af 49 L BUN/Creatinine Ratio 18.1 Glucose 108 H Calcium 9.8 Troponin I High Sens 6 7 Radiography Diagnostic Testing: Clinical Impression(s) from Imaging Studies Chest X-Ray 12/15/22 17:38 IMPRESSION: No radiographic evidence of acute cardiopulmonary disease. Electronically Signed: Sylvain Jhaveri DO at 18:10 EDT , ED attending interpretation of 1-view chest x-ray shows normal heart size, no acute infiltrate, edema, or effusion. EKG Initial EKG: Attestation: I personally reviewed and interpreted this EKG as follows: Interpretation: Sinus Rhythm and No Acute Injury Pattern Comments: Normal sinus rhythm 81 bpm, no ectopy or ischemic changes <Dr. Jose Ramon Weiss MD - Last Filed: 12/15/22 19:45> [facility] Lab Data Labs: Laboratory Results - last 24 hr 12/15/22 12/15/22 17:08 19:30 WBC 17.0 H RBC 5.68 Hgb 17.7 H Hct 50.9 MCV 89.6 MCH 31.2 MCHC 34.8 RDW Std Deviation 44.0 H RDW Coeff of Bob 13.5 Plt Count 366 MPV 9.4 Immature Gran % (Auto) 0.400 Neut % (Auto) 71.6 H Lymph % (Auto) 16.5 L [place] % (Auto) 7.9 Eos % (Auto) 3.0 Baso % (Auto) 0.6 Absolute Neuts (auto) 12.2 H Absolute Lymphs (auto) 2.80 Nucleated RBC % 0 Sodium 134 L Potassium 4.0 Chloride 104 Carbon Dioxide 23.0 Anion Gap 7 BUN 28 H Creatinine 1.55 H Estim Creat Clear Calc 50.26 Est GFR (MDRD) Af Amer 59 L Est GFR (MDRD) Non-Af 49 L BUN/Creatinine Ratio 18.1 Glucose 108 H Calcium 9.8 Troponin I High Sens 6 7 Radiography Diagnostic Testing: Clinical Impression(s) from Imaging Studies Chest X-Ray 12/15/22 17:38 IMPRESSION: No radiographic evidence of acute cardiopulmonary disease. Electronically Signed: Sylvain Jhaveri DO at 18:10 EDT Reading Location ID and State: [address] [place] [address] Tel [phone], Service support , Treatment and Re-Evaluation Comments:: I have personally performed a face to face assessment of the patient and have reviewed the ЕКАТЕРИНА Note. I performed a substantive portion of the visit including all aspects of the following. My yost findings include: History is intermittent brief sharp left-sided chest pains without associated symptoms. History of stents. Asymptomatic now. Exam is obese, well-appearing, heart regular, lungs clear to auscultation no reproducible abdominal chest pain on palpation. Medical Decison Making cardiac work-up with delta troponin, continued observation. Low heart score, if both troponins are negative this sounds less likely to be acute coronary syndrome with regards to the history and I would support close outpatient follow-up and discharge today. Patient comfortable with that plan as well. Other additions or changes: [None] Discharge Plan Triage Chief Complaint: Chest Pain ED Midlevel Provider: Sammie Plummer ED Provider: Jose Ramon Weiss Dx/Rx/DC Orders Clinical Impression: Atypical chest pain Instructions: Chest Pain UKO Ch Prescriptions: No Action amlodipine 10 mg Tablet 10 mg PO DAILY Qty: 90 0RF aspirin 81 mg Tablet,Chewable 81 mg PO BREAKFAST Qty: 60 0RF meloxicam 7.5 mg tablet 7.5 mg PO DAILY Patient Comments: 1 (ONE) TABLET TWICE DAILY NEEDED FOR PAIN levothyroxine 100 mcg tablet 100 mcg PO DAILY Patient Comments: TAKE 1 TABLET BY MOUTH EVERY DAY DIRECTED hydralazine 25 mg Tablet 25 mg PO DAILY atorvastatin 80 mg Tablet 80 mg PO QHS Qty: 30 0RF hydrochlorothiazide 25 mg Tablet 25 mg PO DAILY Qty: 30 0RF metoprolol tartrate 25 mg Tablet 25 mg PO BID Qty: 60 0RF Primary Care Provider: María Elena Eubanks Referrals: Kulwant Thurston MD [Med Staff - Active Staff] - María Elena Eubanks DO [Primary Care Provider] - Activity Restrictions/Additional Instructions: Please call the cardiology office for an appointment or if you have new or worsening symptoms return to the ER Disposition Disposition: Home, Self Care
--- NOTE | 2022-12-15 17:38 | RAD_ITS ---
INDICATION: chest pain EXAMINATION/TECHNIQUE: X-RAY - XR Chest 1 View COMPARISON: November 27, 2022 FINDINGS: LINES/DEVICES: None. LUNGS: No consolidation, edema or effusion. No pneumothorax. MEDIASTINUM AND CARDIOVASCULAR STRUCTURES: Cardiac silhouette not enlarged. Central airways and mediastinal contour are unremarkable. BONES AND SOFT TISSUES: Unremarkable. RAD/Chest 1 View (Portable) IMPRESSION: No radiographic evidence of acute cardiopulmonary disease. Electronically Signed: Sylvain Jhaveri DO at 18:10 EDT ,
[2022-12-15 17:59] LABS: Absolute Neutrophil Count 12.2 X10^3/uL (2.0-7.7); Basophil# 0.11 X10^3/uL; Basophil% 0.6 % (0-1); Eosinophil# 0.51 X10^3/uL; Hematocrit 50.9 % (40-54); Hemoglobin 17.7 g/dL (13.0-16.5); Lymphocyte % 16.5 % (19-41); Mean Corp Hgb Conc 34.8 g/dL (32-36); Mean Corpuscular Hgb 31.2 pg (27.0-32.0); Mean Corpuscular Volume 89.6 fL (80-94); Mean Platelet Vol. 9.4 fl (6.2-12.0); Monocyte# 1.35 X10^3/uL; Monocyte% 7.9 % (0-10); NRBC Flagged by Analyzer 0 % (0-5); Neutrophil # 12.16 X10^3/uL (2.7-7.7); Neutrophil % 71.6 % (47-70); Platelet Count 366 K/mm3 (150-450); RBC Distribution Width CV 13.5 % (11.6-14.6); Red Blood Count 5.68 M/mm3 (4.6-6.2)
[2022-12-15 18:17] LABS: Anion Gap 7 (5-15); BUN 28 mg/dL (7-18); BUN/Creat Ratio 18.1 RATIO (10-20); Calcium,Total 9.8 mg/dL (8.5-10.1); Chloride 104 mmol/L (98-107); Creatinine, Serum 1.55 mg/dL (0.70-1.30); EST Glomerular Filtration Rate 49 mL/min (>60); Est Glom Filt Rate - Afr Amer 59 mL/min (>60); Estimated Creatinine Clearance 50.26 ml/min; Glucose 108 mg/dL (74-106); Sodium Level 134 mmol/L (136-145); Troponin-I HS (w/2H Reflex) 6 pg/mL (3.0-78.0)
[2022-12-15 19:25] LABS: Reflex Troponin-HS? (from REC) Y
[2022-12-15 19:31] VITALS: BP 122/85; PULSE 69; RESP 18; O2SAT 94
[2022-12-15 19:58] LABS: Troponin-I HS 7 pg/mL (3.0-78.0)
[2022-12-15 20:18] VITALS: BP 130/84; PULSE 71; PULSE 73; RESP 19; O2SAT 95
== END 2022-12-15 20:23 | disposition home or self-care (01) ==
PROVIDERS: Physician Assistant; Emergency Provider Emergency Medicine; PCP Internal Medicine; Visit Provider Emergency Medicine
DX: R07.89 Other chest pain (principal); I25.10 Atherosclerotic heart disease of native coronary artery without angina pectoris; F17.210 Nicotine dependence, cigarettes, uncomplicated; E78.00 Pure hypercholesterolemia, unspecified; Z95.5 Presence of coronary angioplasty implant and graft; Z86.73 Personal history of transient ischemic attack (TIA), and cerebral infarction without residual deficits; I25.2 Old myocardial infarction; I5A Non-ischemic myocardial injury (non-traumatic); Z79.82 Long term (current) use of aspirin; Z79.899 Other long term (current) drug therapy; E03.9 Hypothyroidism, unspecified; Z90.49 Acquired absence of other specified parts of digestive tract; I10 Essential (primary) hypertension
CPT/HCPCS: 71045; 80048; 84484; 85025; 93005; 99284; A4216

== ENCOUNTER 2022-12-18 15:48 | Emergency (ER) | payer BC, SELFPAY ==
[2022-12-18] VITALS (14 sets, daily range): BP systolic 115–179; BP diastolic 69–115; PULSE 57–80; RESP 13–18; TEMP 36.4–36.5; O2SAT 94–98; BMI 38.4; BMI 38.2
--- NOTE | 2022-12-18 15:56 | CT_ITS ---
We are attempting to reach an attending provider to discuss findings. An addendum with communication details will be sent when the communication is complete. STUDY: CTA HEAD AND NECK WITH CONTRAST REASON FOR EXAM: Male, 57 years old. Neuro deficit, acute, stroke suspected RADIATION DOSAGE (If Supplied By Facility): CTDIvol = ( ) mGy, DLP = ( ) mGycm TECHNIQUE: CT angiography was performed with a multi-detector CT scanner. Data acquisition was obtained from the skull base through the vertex following intravenous administration of IV 100mL [id number]-[id number]. MIP images were reconstructed from the axial data set. Post-processing of the angiographic images was performed, with multiplanar reformation and 3D reconstruction. Individualized dose optimization techniques were used for this CT. COMPARISON: No relevant priors. FINDINGS: Normal bilateral petrous carotid arteries. Calcific plaquing of the right cavernous carotid artery with a normal supraclinoid bifurcation. Calcific plaquing of the left cavernous carotid artery with a normal supraclinoid bifurcation. Normal right A1 segments of the anterior cerebral artery. Normal left A1 segments of the anterior cerebral artery. Normal intact anterior communicating artery (ACOM). Normal bilateral A2 segments of the anterior cerebral arteries. Normal right M1 and M2 segments of the middle cerebral arteries, with a normal M1 bifurcation. Normal M1 segment with occluded M1/M2 junction. There is reconstitution of the main proximal sylvian branch and reduction in number of distal sylvian branches Posterior communicating arteries are not visualized consistent with normal variant). Normal bilateral vertebral arteries. Normal basilar artery with a normal basilar bifurcation. The visualized bilateral superior cerebellar (SCA) arteries are normal. Normal bilateral P1, P2 and visualized P3 segments of the posterior cerebral arteries. There is no demonstrated aneurysm of the [place]. AORTIC ARCH: Normal visualized aortic arch. Normal origins of the brachiocephalic, left common carotid, and left subclavian arteries. RIGHT CAROTID ARTERIES: Normal right common carotid artery (CCA). Mild calcific plaquing of the right common carotid bulb. Minor calcific plaquing of the origin of the right internal carotid (ICA) artery without a hemodynamically significant stenosis. Normal visualized cervical portion of the right internal carotid artery. Normal origin of the right external carotid artery (ECA). LEFT CAROTID ARTERIES: Normal left common carotid artery (CCA). Mild calcific plaquing of the left common carotid bulb. Minor calcific plaquing of the origin of the left internal carotid (ICA) artery without a hemodynamically significant stenosis. Normal visualized cervical portion of the left internal carotid artery. Normal origin of the left external carotid artery (ECA). VERTEBRAL ARTERIES: Normal bilateral vertebral arteries. CT/STROKE CTA Head AND Neck W/Con IMPRESSION: Mild atherosclerotic changes of the neck with more severe disease in the brain where there is occlusion of the distal left M1 and M2 segment of the middle cerebral artery with reconstitution of the proximal sylvian branch but reduction in sylvian branches distally. Electronically Signed: Steven Wolff MD at 16:42 EDT ,
--- NOTE | 2022-12-18 15:56 | CT_ITS ---
We are attempting to reach an attending provider to discuss findings. An addendum with communication details will be sent when the communication is complete. INDICATION: Neuro deficit, acute, stroke suspected EXAMINATION: CT BRAIN - CT Head Stroke Protocol W/O Contrast Injection TECHNIQUE: Multiple axial images were obtained of the head without intravenous contrast. A radiation dose optimization technique was used for this scan. IV Contrast dosage and agent: None. RADIATION DOSAGE (If Supplied By Facility): CTDIvol = ( ) mGy, DLP = ( 863.6 ) mGycm COMPARISON: November 27, 2022 FINDINGS: BRAIN PARENCHYMA: No intra- or extra-axial hemorrhage. Mild periventricular white matter ischemic changes. There is subtle low attenuation within the left parietal lobe may be consistent with subacute infarct. No intracranial mass or mass effect. There is preservation of the [place]/white matter interface. Posterior fossa structures are unremarkable. CSF SPACES: Appropriate for age. No hydrocephalus. Basal cisterns are patent. CALVARIUM, SKULL BASE, PARANASAL SINUSES AND MASTOID AIR CELLS: Clear. No discrete lytic or blastic abnormalities. ORBITS: Both globes, extraocular muscles, optic nerves and retrobulbar fat appear unremarkable. Diffuse calcific plaquing of the cavernous carotids. Empty sella deformity is observed of uncertain clinical significance CT/STROKE Brain/Head without Cont IMPRESSION: Mild periventricular white matter ischemic changes. Findings consistent with evolving ischemic infarction in the left parietal lobe in distribution of the left middle cerebral artery without evidence for acute hemorrhage. MRI may be useful for further evaluation if indicated Electronically Signed: Steven Wolff MD at 16:16 EDT ,
--- NOTE | 2022-12-18 15:56 | EX.ED.DYSGE1 ---
HPI History of Present Illness Chief Complaint: Neuro S/Sx [facility] Medical History (Updated 12/18/22 @ 16:[address] Mert Pedroza, DO) Anxiety and depression Atherosclerosis of coronary artery of [place] heart without angina pectoris Brain TIA Chest pain Chronic depression Chronic pain Coronary artery disease Diverticulitis Essential (primary) hypertension Headache History of non-ST elevation myocardial infarction (NSTEMI) (03/01/17) History of TIA (transient ischemic attack) (05/02/21) HTN (hypertension) Hypothyroidism Idiopathic intracranial hypertension Migraine Myocardial infarct Nicotine dependence Non-ST elevation (NSTEMI) myocardial infarction (02/2017) Obesity Pain in periorbital region of right eye Periorbital pain Pure hypercholesterolemia Segmental and somatic dysfunction of cervical region Segmental and somatic dysfunction of lumbar region Segmental dysfunction of thoracic region Smoker Trigeminal neuralgia Home Medications amlodipine 10 mg tablet 10 mg PO DAILY #90 tabs 05/02/21 [Rx Last Taken Unknown] aspirin 81 mg chewable tablet 81 mg PO BREAKFAST #60 tabs 05/02/21 [Rx Last Taken Unknown] hydralazine 25 mg tablet 25 mg PO DAILY 11/27/22 [History Last Taken Unknown] levothyroxine 100 mcg tablet 100 mcg PO DAILY 11/27/22 [History Last Taken Unknown] meloxicam 7.5 mg tablet 7.5 mg PO DAILY 11/27/22 [History Last Taken Unknown] atorvastatin 80 mg tablet 80 mg PO QHS #30 tabs 11/28/22 [Rx Last Taken Unknown] hydrochlorothiazide 25 mg tablet 25 mg PO DAILY #30 tabs 11/28/22 [Rx Last Taken Unknown] metoprolol tartrate 25 mg tablet 25 mg PO BID #60 tabs 11/28/22 [Rx Last Taken Unknown] Allergy/AdvReac Type Severity Reaction Status Date / Time Sulfa (Sulfonamide Allergy Other Verified 12/18/22 15:49 Antibiotics) Family History (Updated 04/30/21 @ 12:[address] Alexis Conn MD) Father CAD (coronary artery disease) coronary stents Kidney disease Mother CHF (congestive heart failure) Aortic valve replaced Brother Atrial fibrillation Surgical History History of appendectomy History of colectomy History of coronary artery stent placement (08/08/18) History of tonsillectomy History of uvulopalatopharyngoplasty Status post correction of deviated nasal septum Social History Smoking Status: Heavy Smoker (>10/day) alcohol intake: never caffeine: Yes Type: carbonated beverages Number of servings: 3 EXAM Physical Exam Const Vital Signs: 12/18/22 15:51 12/18/22 16:02 12/18/22 16:12 Temperature 97.5 F L Temperature Source Temporal Pulse Rate 74 67 Respiratory Rate 16 18 Blood Pressure 179/115 H 152/93 H Blood Pressure Mean 136 112 Pulse Ox 97 97 Oxygen Delivery Method Room Air Room Air Room Air 12/18/22 16:30 12/18/22 16:51 12/18/22 17:01 Temperature Temperature Source Pulse Rate 60 Respiratory Rate 18 13 17 Blood Pressure 127/113 H 156/109 H Blood Pressure Mean 117 124 Pulse Ox 94 96 Oxygen Delivery Method Room Air Room Air 12/18/22 17:02 12/18/22 17:25 12/18/22 17:27 Temperature 97.6 F L 97.6 F L Temperature Source Oral Pulse Rate 63 67 Respiratory Rate 16 16 18 Blood Pressure 170/115 H 156/99 H Blood Pressure Mean 133 118 Pulse Ox 97 98 Oxygen Delivery Method Room Air 12/18/22 18:00 12/18/22 18:30 Temperature 97.7 F L 97.6 F L Temperature Source Oral Oral Pulse Rate 57 L 80 Respiratory Rate 14 18 Blood Pressure 159/91 H 164/84 H Blood Pressure Mean 113 110 Pulse Ox 98 95 Oxygen Delivery Method Room Air Room Air [facility] MDM MDM Narrative Medical decision making narrative: HISTORY OF PRESENT ILLNESS: 57-year-old male here with concern for strokelike symptoms. Patient is aphasic exam bilateral history. Per discussion with the patient the past week until his last move sometime last night although he cannot detail at time. Patient's last known well was sometime last 24 hours. REVIEW OF SYSTEMS: Could not obtain review of systems given patient's aphasia and dysarthria. PHYSICAL EXAM: Nursing triage notes reviewed, Vital signs reviewed Constitutional: please see mdm HENT: MMM Eyes: Pupils equal round and reactive to light, Extraocular muscles intact Neck: No stridor, no JVD, full neck ROM Lungs: Clear to auscultation, No wheezing or rales. No increased work of breathing, no conversational dyspnea, no accessory muscle use, no nasal flaring. No respiratory distress noted Heart: Regular rate and rhythm, No murmurs, No rubs and No gallops, 2+ distal pulses (radial, femoral, posterior tibial) in all extremities Abdomen: Soft, there is no tenderness, rigidity, rebound or guarding, no obvious peritoneal signs, no palpable pulsatile abdominal masses, no auscultated abdominal bruit : No CVAT Extremities: No edema Neuro: Alert, severe dysarthria, aphasia, decree sensation in right upper and lower extremity, pronator drift in right upper extremity. Skin: No rash or lesions noted MEDICAL DECISION MAKING: Chief Complaint: Possible stroke External records reviewed: Imaging reviewed: MRI of the brain from 11/27/2022 shows small acute lacunar infarct of the left MCA distribution Factors affecting care: none CAD, hypertension, TIA, hyperlipidemia, tobacco dependence, Social determinants of health: Smoking History obtained from others: none Consults: Stroke neurology, radiology MDM Narrative: Patient is initially hypertensive otherwise hemodynamically stable afebrile and nontoxic-appearing. Initial exam patient had aphasia, dysarthria decrease in station her right upper and lower extremity, right pronator drift. He had initial NIH of 8. Given the patient's last known well was greater than 4 and half hours he is not a candidate for TNK however still a candidate for thrombectomy. He was emergently sent to CT scan as part of a code stroke protocol. I considered the following differential diagnosis: CVA, TIA, focal seizure, ICH Obtained a broad lab and imaging work-up to further elucidate the etiology of the patient's complaints. ALL IMAGES (IF OBTAINED) HAVE BEEN PERSONALLY REVIEWED AND INTERPRETED BY MYSELF. CT scan of the head showed evidence of evolving CVA CTA of the head and neck shows evidence of left MCA occlusion I have personally reviewed the patient's chest x-ray. Chest x-ray is unremarkable for pulmonary edema, pneumothorax, pneumonia or focal cardiopulmonary abnormality. EKG with normal sinus rhythm, normal axis, normal intervals, no ST or T wave changes to suggest ischemia. No evidence of WPW, Brugada, ARVD. CBC with leukocytosis suggestive of systemic inflammation, no anemia or thrombocytopenia No evidence of coagulopathy BMP with mild hyponatremia otherwise no significant electrolyte abnormalities, anion gap, there is noted CKD The synthesis of the patient's labs images consistent with acute CVA secondary to large vessel occlusion. Given large vessel occlusion and symptoms being within 24 hours he was transferred to [facility] to undergo evaluation for emergent thrombectomy. The patient and/or family, caregivers express understanding. The patient and/or family, caregivers agrees with the plan. Shared decision making: I will have a discussion with the patient and or visitors regarding risk/benefits of further testing or admission. They will be made aware of of the risk/benefits inherent in this decision they will be given the opportunity to voice understanding. Total critical care time today provided was at least 60 minutes. This excludes separately billable procedures. Critical care time (if documented) is secondary to the patient having high probability of clinically significant/life threatening deterioration in the patient's condition which required my urgent intervention. Impression: 1. Acute CVA 2. Large vessel occlusion 3. Leukocytosis 4. Hyponatremia Dispo: Transfer to definitive stroke center at [facility] Lab Data Labs: Laboratory Results - last 24 hr 12/18/22 12/18/22 15:55 16:08 WBC 14.3 H RBC 5.47 Hgb 16.5 Hct 49.4 MCV 90.3 MCH 30.2 MCHC 33.4 RDW Std Deviation 45.2 H RDW Coeff of Bob 13.6 Plt Count 317 MPV 9.2 Immature Gran % (Auto) 0.300 Neut % (Auto) 72.0 H Lymph % (Auto) 16.2 L Bee % (Auto) 7.1 Eos % (Auto) 3.8 Baso % (Auto) 0.6 Absolute Neuts (auto) 10.3 H Absolute Lymphs (auto) 2.31 Nucleated RBC % 0 PT 13.8 INR 1.1 APTT 33.1 Sodium 133 L Potassium 4.1 Chloride 107 Carbon Dioxide 21.0 Anion Gap 5 BUN 32 H Creatinine 1.43 H Estim Creat Clear Calc 54.48 Est GFR (MDRD) Af Amer 65 Est GFR (MDRD) Non-Af 54 L BUN/Creatinine Ratio 22.4 H Glucose 114 H Calcium 8.9 Troponin I High Sens 7 POC Glucose 111 H Radiography Diagnostic Testing: Clinical Impression(s) from Imaging Studies Brain CT 12/18/22 15:56 IMPRESSION: Mild periventricular white matter ischemic changes. Findings consistent with evolving ischemic infarction in the left parietal lobe in distribution of the left middle cerebral artery without evidence for acute hemorrhage. MRI may be useful for further evaluation if indicated Electronically Signed: Steven Wolff MD at 16:16 EDT , ADDENDUM: 12/18/22 1628 IMPRESSION: Mild periventricular white matter ischemic changes. Findings consistent with evolving ischemic infarction in the left parietal lobe in distribution of the left middle cerebral artery without evidence for acute hemorrhage. MRI may be useful for further evaluation if indicated N.B. : The above Results were Read Back by Steven Wolff MD to Kasai Painting DO, and understanding confirmed on 12/18/2022 16:21:34 (ET). Electronically Signed: Steven Wolff MD at 16:16 EDT , ADDENDUM: 12/18/22 1648 IMPRESSION: Mild periventricular white matter ischemic changes. Findings consistent with evolving ischemic infarction in the left parietal lobe in distribution of the left middle cerebral artery without evidence for acute hemorrhage. MRI may be useful for further evaluation if indicated N.B. : The above Results were Read Back by Steven Wolff MD to Kasia Painting DO, and understanding confirmed on 12/18/2022 16:41:14 (ET). Electronically Signed: Steven Wolff MD at 16:16 EDT , Head/Neck CTA 12/18/22 15:56 IMPRESSION: Mild atherosclerotic changes of the neck with more severe disease in the brain where there is occlusion of the distal left M1 and M2 segment of the middle cerebral artery with reconstitution of the proximal sylvian branch but reduction in sylvian branches distally. Electronically Signed: Steven Wolff MD at 16:42 EDT , ADDENDUM: 12/18/22 1650 IMPRESSION: Mild atherosclerotic changes of the neck with more severe disease in the brain where there is occlusion of the distal left M1 and M2 segment of the middle cerebral artery with reconstitution of the proximal sylvian branch but reduction in sylvian branches distally. N.B. : The above Results were Read Back by Steven Wolff MD to Kasia Painting DO, and understanding confirmed on 12/18/2022 16:43:48 (ET). Electronically Signed: Steven Wolff MD at 16:42 EDT , Chest X-Ray 12/18/22 16:25 IMPRESSION: No acute cardiopulmonary pathology Electronically Signed: Steven Wolff MD at 16:49 EDT , Discharge Plan Triage Chief Complaint: Neuro S/Sx ED Provider: Mert Pedroza Dx/Rx/DC Orders Clinical Impression: Acute cerebrovascular accident (CVA) Prescriptions: No Action amlodipine 10 mg Tablet 10 mg PO DAILY Qty: 90 0RF aspirin 81 mg Tablet,Chewable 81 mg PO BREAKFAST Qty: 60 0RF meloxicam 7.5 mg tablet 7.5 mg PO DAILY Patient Comments: 1 (ONE) TABLET TWICE DAILY NEEDED FOR PAIN levothyroxine 100 mcg tablet 100 mcg PO DAILY Patient Comments: TAKE 1 TABLET BY MOUTH EVERY DAY DIRECTED hydralazine 25 mg Tablet 25 mg PO DAILY atorvastatin 80 mg Tablet 80 mg PO QHS Qty: 30 0RF hydrochlorothiazide 25 mg Tablet 25 mg PO DAILY Qty: 30 0RF metoprolol tartrate 25 mg Tablet 25 mg PO BID Qty: 60 0RF Primary Care Provider: María Elena Eubanks Referrals: María Elena Euabnks DO [Primary Care Provider] - Disposition Disposition: Acute Care Hospital Discharge Location: [place] [facility]
[2022-12-18 16:08] LABS: Absolute Lymphocyte Count 2.31 X10^3/uL (0.83-4.51); Absolute Neutrophil Count 10.3 X10^3/uL (2.0-7.7); Basophil# 0.08 X10^3/uL; Basophil% 0.6 % (0-1); Eosinophil# 0.55 X10^3/uL; Eosinophils% 3.8 % (0-5); Hematocrit 49.4 % (40-54); Hemoglobin 16.5 g/dL (13.0-16.5); Lymphocyte # 2.31 X10^3/ul (0.83-4.51); Lymphocyte % 16.2 % (19-41); Mean Corp Hgb Conc 33.4 g/dL (32-36); Mean Corpuscular Hgb 30.2 pg (27.0-32.0); Mean Corpuscular Volume 90.3 fL (80-94); Mean Platelet Vol. 9.2 fl (6.2-12.0); Monocyte# 1.01 X10^3/uL; Monocyte% 7.1 % (0-10); NRBC Flagged by Analyzer 0 % (0-5); Platelet Count 317 K/mm3 (150-450); RBC Distribution Width CV 13.6 % (11.6-14.6); RBC Distribution Width SD 45.2 fl (35.1-43.9); Red Blood Count 5.47 M/mm3 (4.6-6.2); White Blood Count 14.3 K/mm3 (4.4-11.0)
[2022-12-18 16:17] LABS: International Normalized Ratio 1.1; Prothrombin Time (Protime)PT. 13.8 SECONDS (11.7-14.9)
[2022-12-18 16:19] LABS: Partial Thromboplast Time 33.1 Seconds (24.1-36.2)
--- NOTE | 2022-12-18 16:25 | RAD_ITS ---
STUDY: X-RAY CHEST REASON FOR EXAM: Male, 57 years old. Neuro deficit, acute, stroke suspected TECHNIQUE: AP portable COMPARISON: December 15, 2022 FINDINGS: Minor chronic interstitial thickening at both lung bases.. There is no demonstrated pleural abnormality. Normal size heart. Normal mediastinum and ophelia. Normal visualized pulmonary arteries. Normal visualized aortic arch and descending thoracic aorta. Dorsal spine and shoulders demonstrate degenerative change. Normal visualized ribs, and clavicles. There is no demonstrated abnormality of the visualized soft tissue structures of the upper abdomen.. No significant change since prior exam RAD/Chest 1 View IMPRESSION: No acute cardiopulmonary pathology Electronically Signed: Steven Wolff MD at 16:49 EDT ,
[2022-12-18 16:27] LABS: Bedside Glucose 111 mg/dL (74-106)
[2022-12-18 16:32] LABS: Anion Gap 5 (5-15); BUN 32 mg/dL (7-18); BUN/Creat Ratio 22.4 RATIO (10-20); Calcium,Total 8.9 mg/dL (8.5-10.1); Chloride 107 mmol/L (98-107); Creatinine, Serum 1.43 mg/dL (0.70-1.30); EST Glomerular Filtration Rate 54 mL/min (>60); Est Glom Filt Rate - Afr Amer 65 mL/min (>60); Estimated Creatinine Clearance 54.48 ml/min; Glucose 114 mg/dL (74-106); Potassium 4.1 mmol/L (3.5-5.1); Sodium Level 133 mmol/L (136-145); Troponin-I HS 7 pg/mL (3.0-78.0)
[2022-12-18] MEDS: Aspirin 325 MG Tablet PO (16:59)
--- NOTE | 2022-12-18 17:35 | NURSING ---
[facility] CALLED ETA 190 ([facility]ELIGHT AND MED[facility] BOTH UNABLE TO FLY DUE TO WEATHER)
--- NOTE | 2022-12-18 17:35 | ED.RN ---
spoke with micky García for pt update.
--- NOTE | 2022-12-18 18:07 | ED.RN ---
multiple attempts made to call report to [facility] ED, no answer
--- NOTE | 2022-12-18 20:11 | NURSING ---
Addendum entered by Pura Graham 12/18/22 20:18: [facility] WAS CALLED AGAIN AT 1999 AFTER NO ARRIVAL WITH ANOTHER UPDATED ETA OF 2019. Original Note: [facility]YS[facility] WAS CALLED AT 1900 FOR AND UPDATED ETA; NEW ETA WAS 1999. [facility]YS[facility] WAS CALLED AGAIN AT 1999 AFTER NO ARIVAL ADN
--- NOTE | 2022-12-18 20:56 | ED.RN ---
attempted again to call [facility] for report
== END 2022-12-18 20:56 | disposition short-term general hospital (02) ==
PROVIDERS: Emergency Provider Emergency Medicine; PCP Internal Medicine; Visit Provider Emergency Medicine
DX: I63.9 Cerebral infarction, unspecified (principal); E78.00 Pure hypercholesterolemia, unspecified; F17.200 Nicotine dependence, unspecified, uncomplicated; I10 Essential (primary) hypertension; D72.829 Elevated white blood cell count, unspecified; E87.1 Hypo-osmolality and hyponatremia; I99.8 Other disorder of circulatory system; I25.10 Atherosclerotic heart disease of native coronary artery without angina pectoris; Z79.899 Other long term (current) drug therapy; Z79.82 Long term (current) use of aspirin; Z90.49 Acquired absence of other specified parts of digestive tract; Z95.5 Presence of coronary angioplasty implant and graft; Z86.73 Personal history of transient ischemic attack (TIA), and cerebral infarction without residual deficits
CPT/HCPCS: 70450; 70496; 70498; 71045; 80048; 82962; 84484; 85025; 85610; 85730; 93005; 99285; Q9967

== ENCOUNTER 2023-01-13 12:04 | Inpatient (IN) | payer BC, SELFPAY ==
[2023-01-13 12:38] VITALS: BP 138/87; PULSE 74; RESP 16; RESP 18; TEMP 36.3; O2SAT 94; BMI 37.8
[2023-01-13] MEDS: Glycerin/Hypromellose/PEG400 15 ml Bottle 2 DRP EACH EYE ×2 (15:13→22:03)
[2023-01-13] MEDS: Erythromycin Base 1 OPTH.TUBE 1 APPLIC EACH EYE ×2 (15:14→22:04)
[2023-01-13] MEDS: Arthritis Pain Compound 60 CLICK TUBE TOPICAL ×2 (15:15→22:04)
--- NOTE | 2023-01-13 15:30 | NURSING ---
[employer] Recovery Operator Note; Activity Asset: Scott Mendez is independent in his choice of daily activities and as of now due to his stroke he has a hard time talking and prefers in room activities. He has a white board for communication. He will watch tv and read the paper. Family will visit and he welcomes visits from the wool carder. Staff will continue to offer in room activities, encourage group activities and respect his right to say no.
--- NOTE | 2023-01-13 15:45 | HP.PCM_ITS ---
HPI - General General Date of Admission: 01/13/23 Date of Service: 01/13/23 Chief Complaint: Here for rehabilitation. HPI Narrative 12/18/2022 EVARISTO HAYNES, is a 57 Male who presents to [facility] ED with neuro S/Sx's. Aphasia, Dysarthria, Right song. NIHSS 8, not TNK candidate due to time. CT head okay. CTA head/neck large MCA occlusion. Transfer to [facility] to consider thrombectomy. 12/18/2022 Admit to [facility]. NIHSS 6. No neurovascular or neurosurgical intervention recommended. Left MCA stroke with ischemic penumbra. DAPT and blood pressure control Captopril 6.5mg bid, Nifedipine 90mg daily for HTN. Atorvastatin 80mg for high intensity statin. Gabapentin 400mg tid for neuropathic pain. Compression glove for right upper extremity swelling. PT/OT/ST. 01/13/2023 Admit to TCU with debility, here for rehabilitation, strengthening, prior to disposition determination. [facility] Medical History (Updated 01/13/23 @ 15:[address] Bobby Murillo MD) Anxiety and depression Atherosclerosis of coronary artery of [place] heart without angina pectoris Brain TIA Chest pain Chronic depression Chronic pain Coronary artery disease Diverticulitis Essential (primary) hypertension Headache History of non-ST elevation myocardial infarction (NSTEMI) (03/01/17) History of TIA (transient ischemic attack) (05/02/21) HTN (hypertension) Hypothyroidism Idiopathic intracranial hypertension Migraine Myocardial infarct Nicotine dependence Non-ST elevation (NSTEMI) myocardial infarction (02/2017) Obesity Pain in periorbital region of right eye Periorbital pain Pure hypercholesterolemia Segmental and somatic dysfunction of cervical region Segmental and somatic dysfunction of lumbar region Segmental dysfunction of thoracic region Smoker Trigeminal neuralgia Home Medications aspirin 81 mg chewable tablet 81 mg PO BREAKFAST heart #60 tabs 05/02/21 [Rx Last Taken Unknown] levothyroxine 100 mcg tablet 100 mcg PO DAILY thyroid 11/27/22 [History Last Taken Unknown] atorvastatin 80 mg tablet 80 mg PO QHS cholesterol #30 tabs 11/28/22 [Rx Last Taken Unknown] hydrochlorothiazide 25 mg tablet 25 mg PO DAILY BP #30 tabs 11/28/22 [Rx Last Taken Unknown] metoprolol tartrate 25 mg tablet 25 mg PO BID BP #60 tabs 11/28/22 [Rx Last Taken Unknown] carbamazepine 200 mg tablet,extended release,12 hr 100 mg PO BID seizures/nerve pain 12/25/22 [History Last Taken Unknown] hydralazine 25 mg tablet 25 mg PO BID BP 12/25/22 [History Last Taken Unknown] lisinopril 20 mg tablet 20 mg PO BID BP 12/25/22 [History Last Taken Unknown] meloxicam 7.5 mg tablet 7.5 mg PO DAILY PRN pain 12/25/22 [History Last Taken Unknown] acetaminophen 325 mg tablet 650 mg PO Q4H PRN pain (scale score 1-3) 01/13/23 [History Last Taken Unknown] captopril 12.5 mg tablet 6.25 mg PO BID BP 01/13/23 [History Last Taken Unknown] clopidogrel 75 mg tablet 75 mg PO QHS antiplatelet 01/13/23 [History Last Taken Unknown] diclofenac sodium 1 % topical gel 2 g topical 4X/DAY pain 01/13/23 [History Last Taken Unknown] donepezil 5 mg tablet 5 mg PO QHS mind 01/13/23 [History Last Taken Unknown] enoxaparin 40 mg/0.4 mL subcutaneous syringe 40 mg subcut DAILY blood thinner 01/13/23 [History Last Taken Unknown] erythromycin 5 mg/gram (0.5 %) eye ointment 1 applic EACH EYE Q8H infection 01/13/23 [History Last Taken Unknown] gabapentin 400 mg capsule 400 mg PO TID pain 01/13/23 [History Last Taken Unknown] lidocaine 4 % topical patch 1 patch topical DAILY pain 01/13/23 [History Last Taken Unknown] melatonin 3 mg capsule 6 mg PO QHS sleep 01/13/23 [History Last Taken Unknown] nifedipine 90 mg tablet,extended release 90 mg PO DAILY heart 01/13/23 [History Last Taken Unknown] polyethylene glycol 3350 17 gram/dose oral powder (Miralax) 17 g PO DAILY PRN bowels 01/13/23 [History Last Taken Unknown] polyvinyl alcohol-povidone (PF) 1.4 %-0.6 % eye drops in a dropperette 2 drp EACH EYE TID PRN dry eyes 01/13/23 [History Last Taken Unknown] sennosides 8.6 mg tablet (Sen-O-Tab) 8.6 mg PO DAILY PRN bowels 01/13/23 [History Last Taken Unknown] trazodone 100 mg tablet 100 mg PO QHS sleep 01/13/23 [History Last Taken Unknown] Allergy/AdvReac Type Severity Reaction Status Date / Time Sulfa (Sulfonamide Allergy Other Verified 12/18/22 15:49 Antibiotics) Family History Father CAD (coronary artery disease) coronary stents Kidney disease Mother CHF (congestive heart failure) Aortic valve replaced Brother Atrial fibrillation Surgical History History of appendectomy History of colectomy History of coronary artery stent placement (08/08/18) History of tonsillectomy History of uvulopalatopharyngoplasty Status post correction of deviated nasal septum Social History (Updated 01/13/23 @ 15:[address] Bobby Murillo MD) household members: none Smoking Status: Heavy Smoker (>10/day) alcohol intake: never caffeine: Yes Type: carbonated beverages Number of servings: 3 ROS Constitutional Constitutional: Denies chills, fever(s) or weight gain ENT HEENT: Denies headache(s), nasal congestion or nasal discharge Cardiovascular Cardiovascular: Denies chest pain or palpitations Respiratory/Chest Respiratory/Chest: Denies cough, excessive phlegm production or shortness of breath with exertion Gastrointestinal Gastrointestinal: Denies abdominal pain, nausea or vomiting Genitourinary Genitourinary: Denies dysuria Musculoskeletal Musculoskeletal: Denies joint pain or joint swelling Integumentary Integumentary: Denies rash or wounds Neurologic Neurologic: Denies focal weakness, numbness or tingling Psychiatric Psychiatric: Denies anxiety, auditory hallucinations, depression, homicidal ideation or suicidal ideation Vital Signs Vital Signs Vital Signs: 01/13/23 12:38 Temperature 97.3 F L Temperature Source Temporal Pulse Rate 74 Respiratory Rate 16 Blood Pressure 138/87 H Blood Pressure Mean 104 Blood Pressure Source Monitor Blood Pressure Position Semi-Fowlers Blood Pressure Location Left Arm Pulse Ox 94 Oxygen Delivery Method Room Air Physical Exam Const alert General Appearance: cooperative HEENT normocephalic Eyes PERRL and EOMs intact bilaterally Neck supple, no JVD and no carotid bruits Resp normal respiratory effort, normal air movement and clear to auscultation bilaterally Cardio regular rate and regular rhythm GI normal to inspection, nondistended, normoactive bowel sounds, non-tender and non-distended Extremity normal capillary refill General Extremity: Negative for edema Skin no rashes or lesions noted General Skin Exam: no breakdown Neuro Neuro Narrative: Dense right hemiplegia. Receptive/Expressive aphasia. Dysarthria. Speech: speech abnormal Psych affect normal Appearance: appropriate Assessment & Plan Assessment/Plan (1) Debility: (2) Left middle cerebral artery stroke: (3) Right hemiplegia: (4) Expressive aphasia: (5) Dysarthria: (6) Hypertension: (7) Hypothyroidism: (8) Hyperlipidemia: (9) Osteoarthritis: (10) Coronary artery disease: (11) Tobacco abuse: PLAN: Plan 57 year old male with below past medical history history hospitalized for left MCA stroke, right hemiplegia, expressive aphasia, dysarthria, no invasive intervention recommended, admitted to TCU with debility, here for rehabilitation, strengthening, prior to disposition determination. * Debility - PT/OT/ST. * Pain - Tylenol 1000mg q6 prn pain (1-10), Lidoderm 1 patch topical daily, Arthritis pain compound 2 clicks 4x/day. * Bowel - Miralax 17gm daily, Senna/colace 1 tablet bid. * Adult immunization - Administer pneumonia vaccine, covid vaccine, flu vaccine as appropriate. * DVT prophylaxis - Lovenox 40mg sc daily. * Left MCA stroke - Aspirin 81mg daily, Plavix 75mg daily. * Hyperlipidemia - Atorvastatin 80mg qhs. * Hypertension - Captopril 6.25mg bid, Nifedipine 90mg daily. * Vascular dementia - Donepezil 5mg qhs. * Conjunctivitis - E-mycin topical [facility] Q8 thru 02/12/2023. * Neuropathic pain - Gabapentin 400mg tid. * Hypothyroidism - Levothyroxine 100mcg daily. * Insomnia - Melatonin 6mg qhs, Trazodone 100mg qhs, stable chronic long term acute care registered nurse use, GDR not recommended. * Dry eyes - Artificial tears 2 gtt ou tid.
[2023-01-13] MEDS: Gabapentin 400 MG Capsule PO ×2 (16:20→22:01)
--- NOTE | 2023-01-13 18:00 | CASEMGMT ---
Social Work Met with patient to complete initial assessment. Introduced self and role. Attempted to verify contacts but unable to depict pt's responses with severe expressive aphasia. pt expressed wishes to be full code and states brother is POA. SW to follow up with brother on documents. Educated to [employer] insurance with [employer]D 01/15 and continued stay is not guaranteed with each review. SW will continue to follow for DC planning. Marilou Goodwin, DRAFTER MECHANICAL LEAVE SPECIALIST
[2023-01-13 22:00] VITALS: BP 129/80; PULSE 70; RESP 18
[2023-01-13] MEDS: Atorvastatin Calcium 80 MG Tablet PO (22:01)
[2023-01-13] MEDS: traZODone 100 MG Tablet PO (22:01)
[2023-01-13] MEDS: Captopril 12.5 MG Tablet 6.25 MG PO (22:01)
[2023-01-13] MEDS: MELATONIN 3 MG TABLET 6 MG PO (22:01)
[2023-01-13] MEDS: Donepezil HCl 5 MG Tablet PO (22:03)
[2023-01-13] MEDS: Senna/Docusate Sodium 1 Tablet PO (22:04)
[2023-01-14] MEDS: Glycerin/Hypromellose/PEG400 15 ml Bottle 2 DRP EACH EYE ×3 (05:23→21:10)
[2023-01-14] MEDS: Erythromycin Base 1 OPTH.TUBE 1 APPLIC EACH EYE ×3 (05:23→21:13)
[2023-01-14] MEDS: Arthritis Pain Compound 60 CLICK TUBE TOPICAL ×4 (05:26→21:10)
[2023-01-14] MEDS: Gabapentin 400 MG Capsule PO ×3 (05:32→21:11)
[2023-01-14] MEDS: Levothyroxine 100 MCG Tablet PO (05:32)
[2023-01-14 05:37] VITALS: PULSE 69; RESP 17; O2SAT 98
[2023-01-14 07:32] LABS: Absolute Lymphocyte Count 1.53 X10^3/uL (0.83-4.51); Absolute Neutrophil Count 5.3 X10^3/uL (2.0-7.7); Basophil# 0.05 X10^3/uL; Basophil% 0.6 % (0-1); Eosinophil# 0.63 X10^3/uL; Eosinophils% 7.6 % (0-5); Hematocrit 38.5 % (40-54); Hemoglobin 12.5 g/dL (13.0-16.5); Lymphocyte # 1.53 X10^3/ul (0.83-4.51); Lymphocyte % 18.5 % (19-41); Mean Corp Hgb Conc 32.5 g/dL (32-36); Mean Corpuscular Hgb 30.2 pg (27.0-32.0); Mean Platelet Vol. 8.8 fl (6.2-12.0); Monocyte# 0.73 X10^3/uL; Monocyte% 8.8 % (0-10); NRBC Flagged by Analyzer 0 % (0-5); Neutrophil # 5.33 X10^3/uL (2.7-7.7); Neutrophil % 64.4 % (47-70); Platelet Count 294 K/mm3 (150-450); RBC Distribution Width CV 13.3 % (11.6-14.6); RBC Distribution Width SD 45.3 fl (35.1-43.9); Red Blood Count 4.14 M/mm3 (4.6-6.2); White Blood Count 8.3 K/mm3 (4.4-11.0)
[2023-01-14 08:02] LABS: Anion Gap 4 (5-15); BUN 25 mg/dL (7-18); BUN/Creat Ratio 19.8 RATIO (10-20); Calcium,Total 8.5 mg/dL (8.5-10.1); Chloride 106 mmol/L (98-107); Creatinine, Serum 1.26 mg/dL (0.70-1.30); EST Glomerular Filtration Rate 62 mL/min (>60); Est Glom Filt Rate - Afr Amer 75 mL/min (>60); Estimated Creatinine Clearance 59.75 ml/min; Glucose 102 mg/dL (74-106); Potassium 4.2 mmol/L (3.5-5.1); Sodium Level 137 mmol/L (136-145)
[2023-01-14 08:07] VITALS: BP 131/74; PULSE 67; RESP 16; TEMP 36.2; O2SAT 94
[2023-01-14] MEDS: Aspirin 81 MG TAB.CHEW PO (08:08)
[2023-01-14] MEDS: Enoxaparin 40 MG/0.4 ML Syringe SC (08:09)
[2023-01-14] MEDS: Lidocaine 5% Patch 1 PATCH TOPICAL (08:09)
[2023-01-14] MEDS: Polyethylene Glycol 3350 17 GM PACKET PO (08:09)
[2023-01-14] MEDS: Senna/Docusate Sodium 1 Tablet PO ×2 (08:09→21:12)
[2023-01-14] MEDS: Clopidogrel Bisulfate 75 MG Tablet PO (08:09)
[2023-01-14] MEDS: NIFEdipine 90 MG Tablet PO (08:10)
[2023-01-14] MEDS: Captopril 12.5 MG Tablet 6.25 MG PO ×2 (08:13→21:09)
[2023-01-14] MEDS: Tuberculin,Purif.prot.deriv. 50 TU/ML Vial 0.100000000000000006 ML ID (11:00)
--- NOTE | 2023-01-14 13:18 | NURSING ---
PT WITH PERIORBITAL EDEMA TO BILAT EYES, WARM COMPRESS APPLIED. PT ASSISTED X2 SPT TO TOILET THEN BACK TO BED TO REST. HOB ELEVATED, CALL LIGHT IN REACH. PT CONTINUES WITH APHASIA, ATTEMPTING TO SPEAK THE CORRECT WORDS BUT DOES HAVE DIFFICULTY. WHEN ASSISTING PT WITH TRANSFER, NOTED RT KNEE AND ANKLE WEAK AND KNEE HYPEREXTENDS AND ANKLE WILL TURN EASILY. PT HAS AFO IN SHOE BUT D/T EDEMA HAVING TROUBLE GETTING FOOT IN.
[2023-01-14] MEDS: Donepezil HCl 5 MG Tablet PO (21:10)
[2023-01-14] MEDS: Atorvastatin Calcium 80 MG Tablet PO (21:10)
[2023-01-14] MEDS: MELATONIN 3 MG TABLET 6 MG PO (21:12)
[2023-01-14] MEDS: traZODone 100 MG Tablet PO (21:13)
[2023-01-14 21:14] VITALS: BP 117/74; PULSE 74
[2023-01-15] MEDS: Glycerin/Hypromellose/PEG400 15 ml Bottle 2 DRP EACH EYE ×3 (06:05→21:39)
[2023-01-15] MEDS: Arthritis Pain Compound 60 CLICK TUBE TOPICAL ×4 (06:05→21:39)
[2023-01-15] MEDS: Erythromycin Base 1 OPTH.TUBE 1 APPLIC EACH EYE ×3 (06:05→21:39)
[2023-01-15] MEDS: Gabapentin 400 MG Capsule PO ×3 (06:06→21:42)
[2023-01-15] MEDS: Levothyroxine 100 MCG Tablet PO (06:07)
[2023-01-15] MEDS: Enoxaparin 40 MG/0.4 ML Syringe SC (08:35)
[2023-01-15] MEDS: NIFEdipine 90 MG Tablet PO (08:36)
[2023-01-15] MEDS: Aspirin 81 MG TAB.CHEW PO (08:36)
[2023-01-15] MEDS: Senna/Docusate Sodium 1 Tablet PO ×2 (08:36→21:38)
[2023-01-15] MEDS: Captopril 12.5 MG Tablet 6.25 MG PO ×2 (08:36→21:36)
[2023-01-15] MEDS: Clopidogrel Bisulfate 75 MG Tablet PO (08:36)
[2023-01-15] MEDS: Polyethylene Glycol 3350 17 GM PACKET PO (08:36)
[2023-01-15] MEDS: Lidocaine 5% Patch 1 PATCH TOPICAL (08:37)
[2023-01-15] MEDS: Petrolatum 33% Tube 1 APPLIC TOPICAL ×2 (08:37→21:40)
[2023-01-15 15:00] VITALS: BP 126/70; PULSE 69; RESP 19; TEMP 35.9; O2SAT 97
--- NOTE | 2023-01-15 15:52 | CHAPLAIN ---
Type of Pastoral Visit _x__ Initial Visit ___ Follow-up Visit ___ On-call Visit ___ General Patient Visit ___ Spiritual Assessment ___ Family Conference ___ Bereavement ___ Rapid Response ___ Code Blue ___ Other (describe below) Pastoral Care Referral From _x__ Patient ___ Family ___ Nurse ___ Physician ___ Wire Dropper ___ Instructor Creeler ___ Other (describe below) Sacrament/Intervention _x__ Active listening ___ Anointing ___ Worship ___ Bereavement ___ Communion ___ Cyndie exploration ___ ___ Life review _x__ Prayer ___ Reconciliation ___ Sacrament of Sick _x__ Supportive presence ___ Wedding ___ Other (describe below) Pastoral Comments patient is open to visit and gives good attempt to communicate since his speech is limited from the stroke; pt gives indication that he is accepting his situation and sees little progress every day; pt says he has good support and does not have concerns; pt is okay with giving prayers for him
[2023-01-15] MEDS: Atorvastatin Calcium 80 MG Tablet PO (21:36)
[2023-01-15] MEDS: Donepezil HCl 5 MG Tablet PO (21:37)
[2023-01-15] MEDS: MELATONIN 3 MG TABLET 6 MG PO (21:38)
[2023-01-15] MEDS: traZODone 100 MG Tablet PO (21:38)
[2023-01-15 21:54] VITALS: BP 121/70; PULSE 89
[2023-01-16] MEDS: Glycerin/Hypromellose/PEG400 15 ml Bottle 2 DRP EACH EYE ×3 (05:33→22:38)
[2023-01-16] MEDS: Gabapentin 400 MG Capsule PO ×3 (05:33→22:43)
[2023-01-16] MEDS: Arthritis Pain Compound 60 CLICK TUBE TOPICAL ×4 (05:33→22:38)
[2023-01-16] MEDS: Levothyroxine 100 MCG Tablet PO (05:33)
[2023-01-16] MEDS: Erythromycin Base 1 OPTH.TUBE 1 APPLIC EACH EYE ×3 (05:33→22:39)
[2023-01-16] MEDS: Aspirin 81 MG TAB.CHEW PO (08:19)
[2023-01-16] MEDS: Clopidogrel Bisulfate 75 MG Tablet PO (08:19)
[2023-01-16] MEDS: Senna/Docusate Sodium 1 Tablet PO ×2 (08:19→22:45)
[2023-01-16] MEDS: Enoxaparin 40 MG/0.4 ML Syringe SC (08:19)
[2023-01-16] MEDS: NIFEdipine 90 MG Tablet PO (08:19)
[2023-01-16] MEDS: Petrolatum 33% Tube 1 APPLIC TOPICAL ×2 (08:20→22:39)
[2023-01-16] MEDS: Polyethylene Glycol 3350 17 GM PACKET PO (08:20)
[2023-01-16 08:33] VITALS: BP 131/77; PULSE 64
[2023-01-16] MEDS: Captopril 12.5 MG Tablet 6.25 MG PO ×2 (10:40→22:44)
[2023-01-16 14:48] VITALS: BP 146/79; PULSE 74; RESP 18; TEMP 36.2; O2SAT 95
[2023-01-16] MEDS: traZODone 100 MG Tablet PO (22:44)
[2023-01-16] MEDS: MELATONIN 3 MG TABLET 6 MG PO (22:44)
[2023-01-16] MEDS: Atorvastatin Calcium 80 MG Tablet PO (22:46)
[2023-01-16] MEDS: Donepezil HCl 5 MG Tablet PO (22:46)
[2023-01-17] MEDS: Erythromycin Base 1 OPTH.TUBE 1 APPLIC EACH EYE ×3 (05:39→22:54)
[2023-01-17] MEDS: Arthritis Pain Compound 60 CLICK TUBE TOPICAL ×4 (05:40→22:54)
[2023-01-17] MEDS: Glycerin/Hypromellose/PEG400 15 ml Bottle 2 DRP EACH EYE ×3 (05:40→22:54)
[2023-01-17] MEDS: Gabapentin 400 MG Capsule PO ×3 (05:40→22:59)
[2023-01-17] MEDS: Levothyroxine 100 MCG Tablet PO (05:40)
[2023-01-17 09:00] VITALS: BP 137/75; PULSE 66
[2023-01-17] MEDS: Enoxaparin 40 MG/0.4 ML Syringe SC (09:12)
[2023-01-17] MEDS: Clopidogrel Bisulfate 75 MG Tablet PO (09:13)
[2023-01-17] MEDS: NIFEdipine 90 MG Tablet PO (09:13)
[2023-01-17] MEDS: Senna/Docusate Sodium 1 Tablet PO (09:13)
[2023-01-17] MEDS: Aspirin 81 MG TAB.CHEW PO (09:13)
[2023-01-17] MEDS: Polyethylene Glycol 3350 17 GM PACKET PO (09:13)
[2023-01-17] MEDS: Petrolatum 33% Tube 1 APPLIC TOPICAL ×2 (09:13→22:57)
[2023-01-17] MEDS: Captopril 12.5 MG Tablet 6.25 MG PO ×2 (09:13→22:56)
[2023-01-17 16:00] VITALS: BP 120/75; PULSE 76; RESP 18; TEMP 36.8; O2SAT 95
[2023-01-17] MEDS: Acetaminophen 500 MG Tablet 1000 MG PO (16:20)
--- NOTE | 2023-01-17 16:38 | NURSING ---
Pt and family updated on positive covid pt.
[2023-01-17] MEDS: Atorvastatin Calcium 80 MG Tablet PO (22:55)
[2023-01-17] MEDS: traZODone 100 MG Tablet PO (22:55)
[2023-01-17] MEDS: MELATONIN 3 MG TABLET 6 MG PO (22:55)
[2023-01-17] MEDS: Donepezil HCl 5 MG Tablet PO (22:55)
[2023-01-18] MEDS: Erythromycin Base 1 OPTH.TUBE 1 APPLIC EACH EYE ×3 (05:54→21:32)
[2023-01-18] MEDS: Glycerin/Hypromellose/PEG400 15 ml Bottle 2 DRP EACH EYE ×3 (05:54→21:32)
[2023-01-18] MEDS: Arthritis Pain Compound 60 CLICK TUBE TOPICAL ×4 (05:54→21:32)
[2023-01-18] MEDS: Gabapentin 400 MG Capsule PO ×3 (05:55→21:31)
[2023-01-18] MEDS: Levothyroxine 100 MCG Tablet PO (05:55)
--- NOTE | 2023-01-18 07:46 | NS ---
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
--- NOTE | 2023-01-18 07:59 | NS ---
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
[2023-01-18] MEDS: Enoxaparin 40 MG/0.4 ML Syringe SC (09:54)
[2023-01-18] MEDS: Captopril 12.5 MG Tablet 6.25 MG PO ×2 (09:55→21:30)
[2023-01-18] MEDS: Aspirin 81 MG TAB.CHEW PO (09:55)
[2023-01-18] MEDS: NIFEdipine 90 MG Tablet PO (09:55)
[2023-01-18] MEDS: Clopidogrel Bisulfate 75 MG Tablet PO (09:55)
[2023-01-18] MEDS: Petrolatum 33% Tube 1 APPLIC TOPICAL ×2 (09:56→21:32)
[2023-01-18] MEDS: Lidocaine 5% Patch 1 PATCH TOPICAL (09:56)
--- NOTE | 2023-01-18 11:09 | PCM.PN.DRR ---
Documented by User: Betty Adames 01/18/23 11:29 TCU RX Drug Regimen Review Subjective/Objective Subjective/Objective: Subjective: TCU Admission. 57 YOM presented to the ER with neuro S/S. Hospitalized for left MCA stroke, right hemiplegia, expressive aphasia, dysarthria, no invasive intervention recommended. Admitted to TCU with debility for strengthening and rehabilitation. Objective: Allergies Sulfa (Sulfonamide Antibiotics) Allergy (Verified 12/18/22 15:49) Other Current Medications Generic Name Dose Route Start Last Admin Trade Name Freq PRN Reason Stop Dose Admin Acetaminophen 1,000 mg 01/13/23 15:53 01/17/23 16:20 Acetaminophen 500 Mg Tablet PO 1,000 mg Q6H PRN PRN Administration pain (scale score 1-10) Aspirin 81 mg 01/14/23 08:00 01/18/23 09:55 Aspirin 81 Mg Tab.Chew PO 81 mg BREAKFAST FANNIE Administration Atorvastatin Calcium 80 mg 01/13/23 22:00 01/17/23 22:55 Atorvastatin Calcium 80 Mg Tablet PO 80 mg QHS FANNIE Administration Calamine/Phenol 1 applic 01/18/23 10:00 01/18/23 09:57 Menthol/Lanolin/Calamine/Znox 113 Gm Tube TOPICAL Not Given BID FANNIE Protocol Captopril 6.25 mg 01/13/23 22:00 01/18/23 09:55 Captopril 12.5 Mg Tablet PO 6.25 mg BID FANNIE Administration Protocol Clopidogrel Bisulfate 75 mg 01/14/23 10:00 01/18/23 09:55 Clopidogrel Bisulfate 75 Mg Tablet PO 75 mg DAILY FANNIE Administration Compound Med 2 click 01/13/23 17:00 01/18/23 05:54 Arthritis Pain Compound 60 Click Tube TOPICAL 2 click 4X/DAY FANNIE Administration Protocol Donepezil HCl 5 mg 01/13/23 22:00 01/17/23 22:55 Donepezil Hcl 5 Mg Tablet PO 5 mg QHS FANNIE Administration Enoxaparin Sodium 40 mg 01/14/23 10:00 01/18/23 09:54 Enoxaparin 40 Mg/0.4 Ml Syringe SC 40 mg DAILY FANNIE Administration Erythromycin 1 applic 01/13/23 14:00 01/18/23 05:54 Erythromycin Base 1 Opth.Tube EACH EYE 01/23/23 14:01 1 applic Q8H FANNIE Administration Gabapentin 400 mg 01/13/23 14:00 01/18/23 05:55 Gabapentin 400 Mg Capsule PO 400 mg TID FANNIE Administration Glycerin/Hypromellose/Polyethylene 2 drp 01/13/23 14:00 01/18/23 05:54 Glycerin/Hypromellose/Tha166 15 Ml Bottle EACH EYE 2 drp TID FANNIE Administration Levothyroxine Sodium 100 mcg 01/14/23 06:00 01/18/23 05:55 Levothyroxine 100 Mcg Tablet PO 100 mcg DAILY@0600 [facility] Administration Lidocaine 1 patch 01/14/23 10:00 01/18/23 09:56 Lidocaine 5% Patch TOPICAL 1 patch DAILY FANNIE Administration Melatonin 6 mg 01/13/23 22:00 01/17/23 22:55 Melatonin 3 Mg Tablet PO 6 mg QHS [facility] Administration Multi-Ingredient Cream 1 applic 01/15/23 10:00 01/18/23 09:56 Petrolatum 33% Tube TOPICAL 1 applic BID [facility] Administration Protocol Nifedipine 90 mg 01/14/23 10:00 01/18/23 09:55 Nifedipine 90 Mg Tablet PO 90 mg DAILY [facility] Administration Protocol Polyethylene Glycol 17 gm 01/14/23 10:00 01/18/23 05:50 Polyethylene Glycol 3350 17 Gm Packet PO Not Given DAILY FANNIE Senna/Docusate Sodium 1 tablet 01/13/23 22:00 01/18/23 05:50 Senna/Docusate Sodium 1 Tablet PO Not Given BID FANNIE Trazodone HCl 100 mg 01/13/23 22:00 01/17/23 22:55 Trazodone 100 Mg Tablet PO 100 mg QHS [facility] Administration Tuberculin PPD 0.1 ml 01/21/23 10:00 Tuberculin,Purif.Prot.Deriv. 50 Tu/Ml Vial ID 01/21/23 10:01 X1 ONE Problem List (Updated 01/13/23 @ 15:[address] Bobby Murillo MD) Tobacco abuse (Acute) Coronary artery disease (Acute) Osteoarthritis (Acute) Hyperlipidemia (Acute) Hypothyroidism (Acute) Dysarthria (Acute) Expressive aphasia (Acute) Right hemiplegia (Acute) Left middle cerebral artery stroke (Acute) Debility (Acute) Hypertension (Chronic) Vital Signs Temp Pulse Resp BP Pulse Ox O2 Del Method 98.2 F 76 18 120/75 95 Room Air 01/17/23 16:00 01/17/23 16:00 01/17/23 16:00 01/17/23 16:00 01/17/23 16:00 01/18/23 07:01 Oxygen Delivery Method Room Air Weight: 109.497 kg Body Mass Index (BMI) 37.8 Sodium 137 mmol/L (136-145) 01/14/23 07:15 Potassium 4.2 mmol/L (3.5-5.1) 01/14/23 07:15 Chloride 106 mmol/L (98-107) 01/14/23 07:15 Carbon Dioxide 27.0 mmol/L (21.0-32.0) 01/14/23 07:15 Anion Gap 4 (5-15) L 01/14/23 07:15 BUN 25 mg/dL (7-18) H 01/14/23 07:15 Creatinine 1.26 mg/dL (0.70-1.30) 01/14/23 07:15 Est GFR (MDRD) Af Amer 75 mL/min (>60) 01/14/23 07:15 Est GFR (MDRD) Non-Af 62 mL/min (>60) 01/14/23 07:15 BUN/Creatinine Ratio 19.8 RATIO (10-20) 01/14/23 07:15 Glucose 102 mg/dL (74-106) 01/14/23 07:15 Assessment/Plan: 1. Pain: acetaminophen 1000 mg PO Q6H as needed for pain, lidocaine 5% 1 patch topically daily, Arthritis pain compound 2 clicks topically 4 times a day. Monitor ALT/AST (AST was 17 U/L on 11/27/22 and ALT was 24 on same date), increased pain and as needed medication usage. Resident has needed?1 dose of acetaminophen for a pain score of 4 in the arm. 2. Bowel: Miralax 17 gm PO daily and senna/docusate PO 1 tablet BID. Monitor for diarrhea, constipation and PRN usage. Last documented bowel movement 01/18. Please consider changing both medications to PRN as resident has had 4 bowel movements today. Thanks. 3. Left MCA stroke: aspirin 81 mg PO daily and clopidogrel 75 mg PO daily. Monitor patient for signs of bleeding, bruising and hemoglobin (last 12.5g/dL). 4. Hyperlipidemia: atorvastatin 80 mg PO daily QHS. Monitor ALT/AST?(AST was 17 U/L on 11/27/22 and ALT was 24 on same date), myalgias, and lipid levels (LDL was 141 mg/dl and total cholesterol was 201 mg/dl on 11/27/22). 5. Hypertension: captopril 6.25 mg PO BID and nifedipine 90 mg daily. Monitor blood pressure (120/75 on 01/17/23), heart rate (76 BPM on 01/17/23), cough, potassium (last 4.2mmol/L) and swelling. 6. Hypothyroidism: levothyroxine 100 mcg PO daily. Monitor S/S of hypothyroidism, TSH (last 11/27/22) and Free T4. 7. DVT prophylaxis: enoxaparin 40 mg SQ?daily. Monitor for signs or bleeding, bruising, hemoglobin, platelets (last 294,000) and renal function (estimated CrCL was 59.75 mg/min on 01/14/23). 8. Dry Eyes/Conjunctivitis: Artificial tears 2 drops OU TID and erythromycin topical OU Q8H until 02/12/23. Monitor for redness, dryness and for any discharge. 9. Vascular Dementia: donepezil 5 mg PO QHS. Monitor for diarrhea, nausea, and insomnia. Assessment/Plan for indications treated with psychotropic medications: 1. Neuropathic pain: gabapentin 400mg PO TID. GDR not appropriate as this medication is being used for neuropathy. Please continue to monitor renal function and S/S of confusion. 2. Insomnia: melatonin 6 mg PO at bedtime and trazodone 100 mg PO at bedtime. Please see physician note regarding GDR. Please continue to monitor for insomnia and excessive drowsiness. Medical chart and medication regimen reviewed. The following medication irregularities or issues were identified: 1. Miralax 17 gm PO daily and senna/docusate PO 1 tablet BID. Please consider changing both medications to PRN as resident has had 4 bowel movements today. Thanks. Date Date of Note:: 01/18/23 Documented by User: Dr. Bobby Murillo MD 01/18/23 11:41 TCU RX Drug Regimen Review Provider Comments Provider responsibility Provider Comments to Recommendations by Pharmacy: Agree
--- NOTE | 2023-01-18 12:32 | NURSING ---
Offered covid vaccine, VIS provided. Patient refuses at this time.
[2023-01-18 14:45] VITALS: BP 136/78; PULSE 79; RESP 16; TEMP 36.5; O2SAT 94
[2023-01-18 21:29] VITALS: BP 133/81; PULSE 78; O2SAT 96
[2023-01-18] MEDS: traZODone 100 MG Tablet PO (21:30)
[2023-01-18] MEDS: MELATONIN 3 MG TABLET 6 MG PO (21:31)
[2023-01-18] MEDS: Donepezil HCl 5 MG Tablet PO (21:31)
[2023-01-18] MEDS: Atorvastatin Calcium 80 MG Tablet PO (21:31)
[2023-01-18] MEDS: Senna/Docusate Sodium 1 Tablet PO (21:38)
[2023-01-18] MEDS: Menthol/Lanolin/Calamine/Znox 113 GM Tube 1 APPLIC TOPICAL (21:38)
[2023-01-19] MEDS: Arthritis Pain Compound 60 CLICK TUBE TOPICAL ×4 (05:33→21:41)
[2023-01-19] MEDS: Erythromycin Base 1 OPTH.TUBE 1 APPLIC EACH EYE (05:33)
[2023-01-19] MEDS: Glycerin/Hypromellose/PEG400 15 ml Bottle 2 DRP EACH EYE ×2 (05:33→21:40)
[2023-01-19] MEDS: Levothyroxine 100 MCG Tablet PO (05:33)
[2023-01-19] MEDS: Gabapentin 400 MG Capsule PO ×3 (05:33→21:41)
[2023-01-19] MEDS: Menthol/Lanolin/Calamine/Znox 113 GM Tube 1 APPLIC TOPICAL ×2 (08:27→21:49)
[2023-01-19] MEDS: Aspirin 81 MG TAB.CHEW PO (08:27)
[2023-01-19] MEDS: Captopril 12.5 MG Tablet 6.25 MG PO ×2 (08:28→21:41)
[2023-01-19] MEDS: Enoxaparin 40 MG/0.4 ML Syringe SC (08:28)
[2023-01-19] MEDS: Clopidogrel Bisulfate 75 MG Tablet PO (08:28)
[2023-01-19] MEDS: NIFEdipine 90 MG Tablet PO (08:28)
[2023-01-19] MEDS: Lidocaine 5% Patch 1 PATCH TOPICAL (08:28)
[2023-01-19] MEDS: Petrolatum 33% Tube 1 APPLIC TOPICAL ×2 (08:38→21:42)
[2023-01-19 13:17] VITALS: BMI 36.8
[2023-01-19] MEDS: Acetaminophen 500 MG Tablet 1000 MG PO ×2 (14:24→22:37)
[2023-01-19 16:00] VITALS: BP 141/63; PULSE 71; RESP 16; TEMP 35.8; O2SAT 95
--- NOTE | 2023-01-19 18:08 | NURSING ---
dr wiess updated of continued periorbital edema, new order to apply cool compresses and stop erythromycin ointment.
[2023-01-19 21:39] VITALS: BP 115/79; PULSE 66
[2023-01-19] MEDS: traZODone 100 MG Tablet PO (21:40)
[2023-01-19] MEDS: Atorvastatin Calcium 80 MG Tablet PO (21:40)
[2023-01-19] MEDS: Donepezil HCl 5 MG Tablet PO (21:40)
[2023-01-19] MEDS: MELATONIN 3 MG TABLET 6 MG PO (21:41)
[2023-01-19] MEDS: Senna/Docusate Sodium 1 Tablet PO (21:41)
[2023-01-20] MEDS: Levothyroxine 100 MCG Tablet PO (06:06)
[2023-01-20] MEDS: Glycerin/Hypromellose/PEG400 15 ml Bottle 2 DRP EACH EYE ×3 (06:06→20:07)
[2023-01-20] MEDS: Arthritis Pain Compound 60 CLICK TUBE TOPICAL ×4 (06:06→19:58)
[2023-01-20] MEDS: Gabapentin 400 MG Capsule PO ×3 (06:06→20:20)
[2023-01-20] MEDS: Enoxaparin 40 MG/0.4 ML Syringe SC (08:55)
[2023-01-20] MEDS: Aspirin 81 MG TAB.CHEW PO (08:56)
[2023-01-20] MEDS: Clopidogrel Bisulfate 75 MG Tablet PO (08:56)
[2023-01-20] MEDS: Senna/Docusate Sodium 1 Tablet PO ×2 (08:56→20:04)
[2023-01-20] MEDS: Captopril 12.5 MG Tablet 6.25 MG PO ×2 (08:56→20:16)
[2023-01-20] MEDS: NIFEdipine 90 MG Tablet PO (08:56)
--- NOTE | 2023-01-20 08:58 | NURSING ---
Radiation Therapist Note; MDS for 01/20/2023 Complete
[2023-01-20] MEDS: Petrolatum 33% Tube 1 APPLIC TOPICAL ×2 (09:05→20:04)
[2023-01-20] MEDS: Menthol/Lanolin/Calamine/Znox 113 GM Tube 1 APPLIC TOPICAL ×2 (09:06→20:06)
[2023-01-20 09:14] VITALS: BP 130/81; PULSE 68
--- NOTE | 2023-01-20 09:45 | CASEMGMT ---
Social Work IDT met with patient and brother for care plan meeting. Discussed patient's progress in PT/OT/ST/SN. Educated to [place] CM insurance with NRD 01/20 and continued stay is not guaranteed with each review. Broached topic of needing an alternative DC plan than home alone. Recommending SNF stay. Educated to financial liability. SW noted that there are 3 SNFs INN with insurance via insurance website - [facility], [facility]. Offered list for both INN and ONN SNFs with quality and resource data. Brother accepted via text. SW sent via [employer] Guide Link. Brother stated pt does not have any funds and would most likely need Medicaid for the SNF. However, pt does not have any advanced directives established and brother does not know where pt sexton. Through some problem solving, brother will talk with aunt and get access to the bank apps on pt's phone and in pt's wallet. SW will then contact the bank to determine what approval is needed for brother to get access to bank accounts for Medicaid purposes. Brother spoke with this worker separately and became tearful, stating his father is in an AL and brother caring for him. Brother is working two jobs and is now overwhelmed with caring for pt. Brother stated pt has 4 children that neither alliance party has spoken to in over 20 years . Brother does not have any information on the children. SW validated feelings and emphasized with current situation. SW assured brother this worker will assist as much as possible throughout stay. Brother appreciative. SW will continue to follow to assist with DC planning. Marilou Goodwin, ÁNGELA HIGGINBOTHAMW
[2023-01-20] MEDS: Ensure Plus High Protein 120 ML LIQUID PO ×2 (11:54→17:36)
[2023-01-20 13:44] VITALS: BP 139/75; PULSE 70; RESP 17; TEMP 36.4; O2SAT 93
[2023-01-20] MEDS: Acetaminophen 500 MG Tablet 1000 MG PO (14:36)
--- NOTE | 2023-01-20 14:39 | CASEMGMT ---
Social Work Staff assessment completed for MDS assessment. Marilou Goodwin, TRANSONIC ENGINEER GREEN BUILDING MATERIALS DESIGNER
--- NOTE | 2023-01-20 15:00 | NURSING ---
Updated patient and brother that a staff member tested covid positive.
[2023-01-20] MEDS: MELATONIN 3 MG TABLET 6 MG PO (20:02)
[2023-01-20] MEDS: traZODone 100 MG Tablet PO (20:03)
[2023-01-20] MEDS: Atorvastatin Calcium 80 MG Tablet PO (20:04)
[2023-01-20] MEDS: Donepezil HCl 5 MG Tablet PO (20:08)
[2023-01-21] MEDS: Gabapentin 400 MG Capsule PO ×3 (05:44→22:25)
[2023-01-21] MEDS: Glycerin/Hypromellose/PEG400 15 ml Bottle 2 DRP EACH EYE ×3 (05:45→22:21)
[2023-01-21] MEDS: Arthritis Pain Compound 60 CLICK TUBE TOPICAL ×4 (05:46→22:16)
[2023-01-21] MEDS: Levothyroxine 100 MCG Tablet PO (05:48)
[2023-01-21 06:06] LABS: Absolute Lymphocyte Count 2.12 X10^3/uL (0.83-4.51); Absolute Neutrophil Count 5.9 X10^3/uL (2.0-7.7); Basophil# 0.07 X10^3/uL; Basophil% 0.7 % (0-1); Eosinophil# 0.68 X10^3/uL; Eosinophils% 7.1 % (0-5); Hematocrit 41.4 % (40-54); Hemoglobin 13.6 g/dL (13.0-16.5); Lymphocyte # 2.12 X10^3/ul (0.83-4.51); Lymphocyte % 22.2 % (19-41); Mean Corp Hgb Conc 32.9 g/dL (32-36); Mean Corpuscular Hgb 30.4 pg (27.0-32.0); Mean Corpuscular Volume 92.6 fL (80-94); Monocyte# 0.71 X10^3/uL; Monocyte% 7.4 % (0-10); NRBC Flagged by Analyzer 0 % (0-5); Neutrophil # 5.93 X10^3/uL (2.7-7.7); Neutrophil % 62.2 % (47-70); Platelet Count 310 K/mm3 (150-450); RBC Distribution Width CV 13.3 % (11.6-14.6); RBC Distribution Width SD 45.7 fl (35.1-43.9); Red Blood Count 4.47 M/mm3 (4.6-6.2); White Blood Count 9.6 K/mm3 (4.4-11.0)
[2023-01-21 06:22] LABS: Anion Gap 5 (5-15); BUN 27 mg/dL (7-18); BUN/Creat Ratio 21.3 RATIO (10-20); Calcium,Total 8.7 mg/dL (8.5-10.1); Chloride 106 mmol/L (98-107); Creatinine, Serum 1.27 mg/dL (0.70-1.30); EST Glomerular Filtration Rate 62 mL/min (>60); Est Glom Filt Rate - Afr Amer 75 mL/min (>60); Estimated Creatinine Clearance 59.28 ml/min; Glucose 99 mg/dL (74-106); Potassium 4.2 mmol/L (3.5-5.1); Sodium Level 140 mmol/L (136-145)
[2023-01-21] MEDS: Captopril 12.5 MG Tablet 6.25 MG PO ×2 (08:19→22:24)
[2023-01-21] MEDS: Enoxaparin 40 MG/0.4 ML Syringe SC (08:19)
[2023-01-21] MEDS: Menthol/Lanolin/Calamine/Znox 113 GM Tube 1 APPLIC TOPICAL ×2 (08:20→22:16)
[2023-01-21] MEDS: Clopidogrel Bisulfate 75 MG Tablet PO (08:20)
[2023-01-21] MEDS: Senna/Docusate Sodium 1 Tablet PO (08:20)
[2023-01-21] MEDS: Aspirin 81 MG TAB.CHEW PO (08:20)
[2023-01-21] MEDS: Lidocaine 5% Patch 1 PATCH TOPICAL (08:20)
[2023-01-21] MEDS: Ensure Plus High Protein 120 ML LIQUID PO ×3 (08:21→16:03)
[2023-01-21] MEDS: NIFEdipine 90 MG Tablet PO (08:21)
[2023-01-21] MEDS: Petrolatum 33% Tube 1 APPLIC TOPICAL ×2 (08:25→22:17)
[2023-01-21 10:00] VITALS: PULSE 70
[2023-01-21] MEDS: Tuberculin,Purif.prot.deriv. 50 TU/ML Vial 0.100000000000000006 ML ID (11:01)
[2023-01-21 14:25] VITALS: BP 143/78; PULSE 70; RESP 17; TEMP 36.6; O2SAT 92
[2023-01-21] MEDS: Acetaminophen 500 MG Tablet 1000 MG PO ×2 (15:59→22:34)
[2023-01-21] MEDS: Donepezil HCl 5 MG Tablet PO (22:24)
[2023-01-21] MEDS: Atorvastatin Calcium 80 MG Tablet PO (22:24)
[2023-01-21] MEDS: MELATONIN 3 MG TABLET 6 MG PO (22:24)
[2023-01-21] MEDS: traZODone 100 MG Tablet PO (22:24)
[2023-01-21] MEDS: Senna/Docusate Sodium 1 Tablet 2 TABLET PO (22:25)
[2023-01-22] MEDS: Glycerin/Hypromellose/PEG400 15 ml Bottle 2 DRP EACH EYE ×3 (05:54→21:37)
[2023-01-22] MEDS: Arthritis Pain Compound 60 CLICK TUBE TOPICAL ×4 (05:55→21:35)
[2023-01-22] MEDS: Levothyroxine 100 MCG Tablet PO (05:55)
[2023-01-22] MEDS: Gabapentin 400 MG Capsule PO ×3 (05:55→21:35)
--- NOTE | 2023-01-22 06:04 | NURSING ---
Cold compress to bilateral periorbital areas at this time, as ordered. Patient tolerating well.
[2023-01-22] MEDS: NIFEdipine 90 MG Tablet PO (08:16)
[2023-01-22] MEDS: Enoxaparin 40 MG/0.4 ML Syringe SC (08:16)
[2023-01-22] MEDS: Clopidogrel Bisulfate 75 MG Tablet PO (08:16)
[2023-01-22] MEDS: Polyethylene Glycol 3350 17 GM PACKET PO (08:16)
[2023-01-22] MEDS: Captopril 12.5 MG Tablet 6.25 MG PO ×2 (08:17→21:38)
[2023-01-22] MEDS: Aspirin 81 MG TAB.CHEW PO (08:17)
[2023-01-22] MEDS: Senna/Docusate Sodium 1 Tablet 2 TABLET PO ×2 (08:20→21:40)
[2023-01-22] MEDS: Petrolatum 33% Tube 1 APPLIC TOPICAL ×2 (08:27→21:39)
[2023-01-22] MEDS: Menthol/Lanolin/Calamine/Znox 113 GM Tube 1 APPLIC TOPICAL ×2 (08:27→21:38)
[2023-01-22] MEDS: Ensure Plus High Protein 120 ML LIQUID PO ×3 (08:29→16:48)
[2023-01-22] MEDS: Lidocaine 5% Patch 1 PATCH TOPICAL (08:31)
[2023-01-22] MEDS: Acetaminophen 500 MG Tablet 1000 MG PO ×2 (10:49→21:53)
[2023-01-22 16:00] VITALS: BP 141/86; PULSE 73; RESP 16; TEMP 36.6; O2SAT 93
[2023-01-22] MEDS: Sertraline 50 MG Tablet PO (16:48)
[2023-01-22] MEDS: Donepezil HCl 5 MG Tablet PO (21:36)
[2023-01-22] MEDS: Atorvastatin Calcium 80 MG Tablet PO (21:36)
[2023-01-22] MEDS: MELATONIN 3 MG TABLET 6 MG PO (21:37)
[2023-01-22] MEDS: traZODone 100 MG Tablet PO (21:39)
[2023-01-22 21:51] VITALS: BP 150/86; PULSE 65
--- NOTE | 2023-01-22 22:19 | NURSING ---
Cold compress to bilateral periorbital areas as ordered, patient tolerated well.
[2023-01-23] MEDS: Arthritis Pain Compound 60 CLICK TUBE TOPICAL ×4 (05:43→22:45)
[2023-01-23] MEDS: Glycerin/Hypromellose/PEG400 15 ml Bottle 2 DRP EACH EYE ×3 (05:43→22:46)
[2023-01-23] MEDS: Gabapentin 400 MG Capsule PO ×3 (05:43→22:41)
[2023-01-23] MEDS: Levothyroxine 100 MCG Tablet PO (05:43)
[2023-01-23] MEDS: Polyethylene Glycol 3350 17 GM PACKET PO (08:54)
[2023-01-23] MEDS: Sertraline 50 MG Tablet PO (08:54)
[2023-01-23] MEDS: Senna/Docusate Sodium 1 Tablet 2 TABLET PO ×2 (08:54→22:42)
[2023-01-23] MEDS: Clopidogrel Bisulfate 75 MG Tablet PO (08:54)
[2023-01-23] MEDS: NIFEdipine 90 MG Tablet PO (08:54)
[2023-01-23] MEDS: Captopril 12.5 MG Tablet 6.25 MG PO ×2 (08:54→22:41)
[2023-01-23] MEDS: Enoxaparin 40 MG/0.4 ML Syringe SC (08:55)
[2023-01-23] MEDS: Aspirin 81 MG TAB.CHEW PO (08:55)
[2023-01-23] MEDS: Petrolatum 33% Tube 1 APPLIC TOPICAL ×2 (08:56→22:45)
[2023-01-23] MEDS: Menthol/Lanolin/Calamine/Znox 113 GM Tube 1 APPLIC TOPICAL ×2 (08:56→22:45)
[2023-01-23] MEDS: Acetaminophen 500 MG Tablet 1000 MG PO (09:21)
[2023-01-23 10:00] VITALS: PULSE 70
[2023-01-23] MEDS: Ensure Plus High Protein 120 ML LIQUID PO ×2 (13:07→17:20)
[2023-01-23 14:14] VITALS: BP 136/80; PULSE 75; RESP 16; TEMP 36.6; O2SAT 94
[2023-01-23] MEDS: MELATONIN 3 MG TABLET 6 MG PO (22:42)
[2023-01-23] MEDS: traZODone 100 MG Tablet PO (22:43)
[2023-01-23] MEDS: Atorvastatin Calcium 80 MG Tablet PO (22:43)
[2023-01-23] MEDS: Donepezil HCl 5 MG Tablet PO (22:44)
[2023-01-23 22:56] VITALS: BP 137/88; RESP 71
[2023-01-24] MEDS: Glycerin/Hypromellose/PEG400 15 ml Bottle 2 DRP EACH EYE ×3 (06:03→23:08)
[2023-01-24] MEDS: Arthritis Pain Compound 60 CLICK TUBE TOPICAL (06:03)
[2023-01-24] MEDS: Levothyroxine 100 MCG Tablet PO (06:04)
[2023-01-24] MEDS: Gabapentin 400 MG Capsule PO ×3 (06:06→23:05)
[2023-01-24] MEDS: Captopril 12.5 MG Tablet 6.25 MG PO ×2 (08:24→23:10)
[2023-01-24] MEDS: NIFEdipine 90 MG Tablet PO (08:24)
[2023-01-24] MEDS: Aspirin 81 MG TAB.CHEW PO (08:25)
[2023-01-24] MEDS: Polyethylene Glycol 3350 17 GM PACKET PO (08:25)
[2023-01-24] MEDS: Clopidogrel Bisulfate 75 MG Tablet PO (08:25)
[2023-01-24] MEDS: Enoxaparin 40 MG/0.4 ML Syringe SC (08:26)
[2023-01-24] MEDS: Petrolatum 33% Tube 1 APPLIC TOPICAL ×2 (08:27→23:08)
[2023-01-24] MEDS: Menthol/Lanolin/Calamine/Znox 113 GM Tube 1 APPLIC TOPICAL ×2 (08:28→23:08)
[2023-01-24] MEDS: Senna/Docusate Sodium 1 Tablet 2 TABLET PO (08:28)
[2023-01-24] MEDS: Sertraline 50 MG Tablet PO (08:30)
[2023-01-24 14:22] VITALS: BP 137/81; PULSE 61; RESP 16; TEMP 36.1; O2SAT 90
[2023-01-24 22:45] VITALS: BP 136/67; PULSE 87
[2023-01-24] MEDS: MELATONIN 3 MG TABLET 6 MG PO (23:06)
[2023-01-24] MEDS: Donepezil HCl 5 MG Tablet PO (23:06)
[2023-01-24] MEDS: Atorvastatin Calcium 80 MG Tablet PO (23:10)
[2023-01-24] MEDS: traZODone 100 MG Tablet PO (23:10)
[2023-01-25] MEDS: Acetaminophen 500 MG Tablet 1000 MG PO (01:07)
[2023-01-25] MEDS: Gabapentin 400 MG Capsule PO ×3 (05:50→21:41)
[2023-01-25] MEDS: Levothyroxine 100 MCG Tablet PO (05:50)
[2023-01-25] MEDS: Glycerin/Hypromellose/PEG400 15 ml Bottle 2 DRP EACH EYE ×3 (05:50→21:41)
--- NOTE | 2023-01-25 08:02 | NURSING ---
Pt did not pass any stool this shift.
[2023-01-25] MEDS: Ensure Plus High Protein 120 ML LIQUID PO ×3 (09:30→18:28)
[2023-01-25] MEDS: Clopidogrel Bisulfate 75 MG Tablet PO (09:30)
[2023-01-25] MEDS: NIFEdipine 90 MG Tablet PO (09:30)
[2023-01-25] MEDS: Enoxaparin 40 MG/0.4 ML Syringe SC (09:30)
[2023-01-25] MEDS: Sertraline 50 MG Tablet PO (09:30)
[2023-01-25] MEDS: Captopril 12.5 MG Tablet 6.25 MG PO ×2 (09:31→22:14)
[2023-01-25] MEDS: Aspirin 81 MG TAB.CHEW PO (09:31)
[2023-01-25] MEDS: Menthol/Lanolin/Calamine/Znox 113 GM Tube 1 APPLIC TOPICAL ×2 (09:33→21:41)
[2023-01-25] MEDS: Petrolatum 33% Tube 1 APPLIC TOPICAL ×2 (09:33→21:41)
--- NOTE | 2023-01-25 11:16 | CASEMGMT ---
Social Work SW received call from brother with updates. Brother spoke with pt's ex-, explained pt's situation, and requested if the children would like any involvement with pt. Ex- spoke with all 4 children and neither child would like involvement. SW requested brother provide ex- with this worker's contact information to be able to speak with the children to rule out involvement. Brother agreeable. Brother also stated pt was able to use fingerprint to get into phone and access bank account. Pt sexton at the bank inside [facility] but brother could not recall name. SW to investigate. Brother stated pt only has checking account and has $1800. SW to pursue Medicaid application and explained [facility] will contact brother to ask further questions. If more information is needed, SW to assist as able. Brother also inquired about pt applying for disability. SW educated to Medicare.gov but brother may have difficulty with answering questions. However, explained brother can go through application to see the questions and get the answers coming back and forth with the application. Brother stated the goal is for pt to transfer to [facility]. SW noted Medicaid needs to be started to ensure pt will qualify for [facility] to make a final decision. SW to place referral via CarePort to begin process. Brother expressed understanding and appreciative. SW will continue to follow. -- Received outcome from insurance with NRD 01/30. SW to contact [employer], inside [facility], if UMM needs further information. ÁNGELA CristinaW
--- NOTE | 2023-01-25 15:32 | NURSING ---
Pt's Heart monitor needs returned on 01/27/23 per instructions on box.
[2023-01-25 16:00] VITALS: BP 123/72; PULSE 69; RESP 16; TEMP 37; O2SAT 94
[2023-01-25] MEDS: Arthritis Pain Compound 60 CLICK TUBE TOPICAL ×2 (18:28→21:41)
[2023-01-25] MEDS: Atorvastatin Calcium 80 MG Tablet PO (22:14)
[2023-01-25] MEDS: traZODone 100 MG Tablet PO (22:14)
[2023-01-25] MEDS: Donepezil HCl 5 MG Tablet PO (22:14)
[2023-01-25] MEDS: Senna/Docusate Sodium 1 Tablet 2 TABLET PO (22:14)
[2023-01-25] MEDS: MELATONIN 3 MG TABLET 6 MG PO (22:14)
[2023-01-26] MEDS: Gabapentin 400 MG Capsule PO ×3 (05:18→21:33)
[2023-01-26] MEDS: Arthritis Pain Compound 60 CLICK TUBE TOPICAL ×4 (05:18→21:33)
[2023-01-26] MEDS: Glycerin/Hypromellose/PEG400 15 ml Bottle 2 DRP EACH EYE ×3 (05:18→21:33)
[2023-01-26] MEDS: Levothyroxine 100 MCG Tablet PO (06:14)
[2023-01-26 08:39] VITALS: BP 138/94; PULSE 76; RESP 17; TEMP 36.1; O2SAT 94
[2023-01-26] MEDS: Captopril 12.5 MG Tablet 6.25 MG PO ×2 (08:41→21:37)
[2023-01-26] MEDS: Aspirin 81 MG TAB.CHEW PO (08:41)
[2023-01-26] MEDS: Enoxaparin 40 MG/0.4 ML Syringe SC (08:42)
[2023-01-26] MEDS: Clopidogrel Bisulfate 75 MG Tablet PO (08:42)
[2023-01-26] MEDS: NIFEdipine 90 MG Tablet PO (08:42)
[2023-01-26] MEDS: Petrolatum 33% Tube 1 APPLIC TOPICAL ×2 (08:43→21:37)
[2023-01-26] MEDS: Sertraline 50 MG Tablet PO (08:43)
[2023-01-26] MEDS: Menthol/Lanolin/Calamine/Znox 113 GM Tube 1 APPLIC TOPICAL (08:43)
[2023-01-26] MEDS: Ensure Plus High Protein 120 ML LIQUID PO ×3 (08:44→16:55)
--- NOTE | 2023-01-26 08:58 | NURSING ---
Addendum entered by Francesca Lott 01/26/23 11:09: Call back from the office, telehealth visit to be done 02/01/23 @0900. Office will call the unit cell phone, there will be a link sent for staff to click on. Original Note: Reached out to Dr. Sepulveda's office, asked about doing a telephone/video follow-up or having patient follow-up after DC instead of appt in [place] on 02/01/23. They will reach out to physician and call back.
--- NOTE | 2023-01-26 11:51 | CASEMGMT ---
Social Work Received call from ex-, Aurora Ibarra, with acknowledgement of the children and herself needing to voice deference of decision making to pt's brother, Hany. Aurora provided this worker with all 4 children's names and phone numbers to contact. Dtr, Natalia, was present with ex- and spoke with this worker via phone. Dtr did express understanding of pt needing decisions made for his healthcare and deferred to brother Hany to complete those decisions. SW thanked both parties for cooperation. SW to contact the other children. Will continue to follow. Marilou Goodwin, ÁNGELA HIGGINBOTHAMW
[2023-01-26 13:00] VITALS: BMI 36.0
--- NOTE | 2023-01-26 13:41 | MDS.RN ---
Information for the mds was obtained from review of the clinical record, interview of resident, staff, and direct observation of resident's care.
[2023-01-26] MEDS: Acetaminophen 500 MG Tablet 1000 MG PO ×2 (16:59→23:06)
[2023-01-26] MEDS: MELATONIN 3 MG TABLET 6 MG PO (21:35)
[2023-01-26] MEDS: Donepezil HCl 5 MG Tablet PO (21:36)
[2023-01-26] MEDS: traZODone 100 MG Tablet PO (21:37)
[2023-01-26] MEDS: Atorvastatin Calcium 80 MG Tablet PO (21:38)
--- NOTE | 2023-01-26 21:42 | NURSING ---
Cold compress to b/l periorbital areas as ordered.
[2023-01-26 22:38] VITALS: BP 136/74; PULSE 66
[2023-01-27] MEDS: Gabapentin 400 MG Capsule PO ×3 (05:31→21:12)
[2023-01-27] MEDS: Levothyroxine 100 MCG Tablet PO (05:32)
[2023-01-27] MEDS: Glycerin/Hypromellose/PEG400 15 ml Bottle 2 DRP EACH EYE ×3 (05:32→21:10)
[2023-01-27] MEDS: Arthritis Pain Compound 60 CLICK TUBE TOPICAL ×4 (05:32→21:10)
[2023-01-27 08:19] VITALS: BP 146/74; PULSE 59
[2023-01-27] MEDS: Ensure Plus High Protein 120 ML LIQUID PO ×3 (08:20→16:53)
[2023-01-27] MEDS: Captopril 12.5 MG Tablet 6.25 MG PO ×2 (08:21→21:11)
[2023-01-27] MEDS: Aspirin 81 MG TAB.CHEW PO (08:21)
[2023-01-27] MEDS: Menthol/Lanolin/Calamine/Znox 113 GM Tube 1 APPLIC TOPICAL ×2 (08:21→21:10)
[2023-01-27] MEDS: Petrolatum 33% Tube 1 APPLIC TOPICAL ×2 (08:22→21:12)
[2023-01-27] MEDS: Lidocaine 5% Patch 1 PATCH TOPICAL (08:22)
[2023-01-27] MEDS: Enoxaparin 40 MG/0.4 ML Syringe SC (08:23)
[2023-01-27] MEDS: Clopidogrel Bisulfate 75 MG Tablet PO (08:24)
[2023-01-27] MEDS: NIFEdipine 90 MG Tablet PO (08:24)
[2023-01-27] MEDS: Polyethylene Glycol 3350 17 GM PACKET PO (08:24)
[2023-01-27] MEDS: Sertraline 50 MG Tablet PO (08:26)
[2023-01-27] MEDS: Senna/Docusate Sodium 1 Tablet 2 TABLET PO (08:26)
--- NOTE | 2023-01-27 11:55 | CASEMGMT ---
Addendum entered by Marilou Goodwin 01/27/23 13:22: Brother phoned this worker and requested referral to [facility], despite it being [facility]. Referral made via CarePort. Original Note: Social Work Received call from brother, Hany, to follow up DC planning. ROWAN explains plans to contact pt's bank to see the process for getting brother added to pt's accounts for Medicaid purposes, and to contact the children to legally allow the brother to make decisions. ROWAN's initial goal is to begin the Medicaid process to SNF placement. Brother needs to sign a release form for [facility] to complete the application. Brother can sign after work tomorrow, and agreed to geophysical support specialist a list of SNFs to provide further choices. ROWAN explained pt is clinically accepted at [facility] but has to either admit private pay or when fully approved by Medicaid. Neither appears to be a possibility with the short-stay on TCU. Brother agrees and will review. ROWAN also scheduled meeting with brother around his work schedule for 02/01 at 1300 to further discuss finances, etc. Brother appreciative. ROWAN will continue to follow. ÁNGELA Cristina
[2023-01-27] MEDS: Nystatin Powder 15gm Bottle 1 APPLIC TOPICAL ×2 (12:17→21:13)
[2023-01-27 14:59] VITALS: BP 134/84; PULSE 63; RESP 16; TEMP 36.2; O2SAT 93
[2023-01-27] MEDS: Donepezil HCl 5 MG Tablet PO (21:10)
[2023-01-27] MEDS: traZODone 100 MG Tablet PO (21:11)
[2023-01-27] MEDS: MELATONIN 3 MG TABLET 6 MG PO (21:11)
[2023-01-27] MEDS: Atorvastatin Calcium 80 MG Tablet PO (21:11)
[2023-01-27 21:20] VITALS: BP 147/85; PULSE 67
[2023-01-27] MEDS: Acetaminophen 500 MG Tablet 1000 MG PO (21:24)
[2023-01-28] MEDS: Levothyroxine 100 MCG Tablet PO (05:19)
[2023-01-28] MEDS: Arthritis Pain Compound 60 CLICK TUBE TOPICAL ×4 (05:19→22:17)
[2023-01-28] MEDS: Gabapentin 400 MG Capsule PO ×3 (05:19→22:39)
[2023-01-28] MEDS: Glycerin/Hypromellose/PEG400 15 ml Bottle 2 DRP EACH EYE ×3 (05:20→22:17)
[2023-01-28 05:46] LABS: Absolute Lymphocyte Count 2.04 X10^3/uL (0.83-4.51); Absolute Neutrophil Count 5.4 X10^3/uL (2.0-7.7); Basophil# 0.06 X10^3/uL; Basophil% 0.7 % (0-1); Eosinophil# 0.68 X10^3/uL; Eosinophils% 7.6 % (0-5); Hematocrit 40.8 % (40-54); Hemoglobin 13.4 g/dL (13.0-16.5); Lymphocyte # 2.04 X10^3/ul (0.83-4.51); Lymphocyte % 22.9 % (19-41); Mean Corp Hgb Conc 32.8 g/dL (32-36); Mean Corpuscular Volume 91.3 fL (80-94); Mean Platelet Vol. 9.3 fl (6.2-12.0); Monocyte% 7.9 % (0-10); NRBC Flagged by Analyzer 0 % (0-5); Neutrophil # 5.38 X10^3/uL (2.7-7.7); Neutrophil % 60.6 % (47-70); Platelet Count 299 K/mm3 (150-450); RBC Distribution Width CV 13.3 % (11.6-14.6); RBC Distribution Width SD 44.9 fl (35.1-43.9); Red Blood Count 4.47 M/mm3 (4.6-6.2); White Blood Count 8.9 K/mm3 (4.4-11.0)
[2023-01-28 06:36] LABS: Anion Gap 5 (5-15); BUN 28 mg/dL (7-18); BUN/Creat Ratio 22.2 RATIO (10-20); Calcium,Total 8.3 mg/dL (8.5-10.1); Chloride 106 mmol/L (98-107); Creatinine, Serum 1.26 mg/dL (0.70-1.30); EST Glomerular Filtration Rate 62 mL/min (>60); Est Glom Filt Rate - Afr Amer 75 mL/min (>60); Estimated Creatinine Clearance 59.75 ml/min; Glucose 101 mg/dL (74-106); Potassium 3.8 mmol/L (3.5-5.1); Sodium Level 137 mmol/L (136-145)
[2023-01-28] MEDS: Senna/Docusate Sodium 1 Tablet 2 TABLET PO ×2 (08:56→22:22)
[2023-01-28] MEDS: Sertraline 50 MG Tablet PO (08:56)
[2023-01-28] MEDS: Captopril 12.5 MG Tablet 6.25 MG PO ×2 (08:57→22:18)
[2023-01-28] MEDS: Clopidogrel Bisulfate 75 MG Tablet PO (08:57)
[2023-01-28] MEDS: Polyethylene Glycol 3350 17 GM PACKET PO (08:57)
[2023-01-28] MEDS: Aspirin 81 MG TAB.CHEW PO (08:57)
[2023-01-28] MEDS: Enoxaparin 40 MG/0.4 ML Syringe SC (08:57)
[2023-01-28] MEDS: NIFEdipine 90 MG Tablet PO (08:57)
[2023-01-28] MEDS: Menthol/Lanolin/Calamine/Znox 113 GM Tube 1 APPLIC TOPICAL ×2 (08:58→22:18)
[2023-01-28] MEDS: Lidocaine 5% Patch 1 PATCH TOPICAL (08:58)
[2023-01-28] MEDS: Petrolatum 33% Tube 1 APPLIC TOPICAL ×2 (08:58→22:19)
[2023-01-28] MEDS: Ensure Plus High Protein 120 ML LIQUID PO ×3 (09:04→18:29)
[2023-01-28 09:20] VITALS: BP 136/84; PULSE 84
[2023-01-28] MEDS: Nystatin Powder 15gm Bottle 1 APPLIC TOPICAL ×2 (13:43→22:20)
--- NOTE | 2023-01-28 14:38 | CASEMGMT ---
Addendum entered by Marilou Goodwin 01/29/23 10:33: Received update from [facility] that a room is available and can accept pt when cut from insurance. SW phoned brother to update. Brother agreeable. IDT is continuing to request additional time for pt in TCU and progress is being made with pt. Original Note: Social Work Brother signed [employer] auth form. ROWAN sent referral via email to begin UMM application. [facility] can accept pt MCDP but only on/after 02/03 as the do not have a bed prior. ROWAN to update brother. Will continue to follow Marilou Goodwin, ÁNGELA HIGGINBOTHAMW
[2023-01-28 15:41] VITALS: BP 131/81; PULSE 70; RESP 17; TEMP 35.9; O2SAT 95
[2023-01-28 20:08] VITALS: PULSE 70
[2023-01-28 22:15] VITALS: BP 130/85; PULSE 64
[2023-01-28] MEDS: Donepezil HCl 5 MG Tablet PO (22:17)
[2023-01-28] MEDS: traZODone 100 MG Tablet PO (22:19)
[2023-01-28] MEDS: MELATONIN 3 MG TABLET 6 MG PO (22:19)
[2023-01-28] MEDS: Atorvastatin Calcium 80 MG Tablet PO (22:19)
[2023-01-29] MEDS: Arthritis Pain Compound 60 CLICK TUBE TOPICAL ×4 (05:31→20:35)
[2023-01-29] MEDS: Glycerin/Hypromellose/PEG400 15 ml Bottle 2 DRP EACH EYE ×3 (05:31→20:37)
[2023-01-29] MEDS: Levothyroxine 100 MCG Tablet PO (05:32)
[2023-01-29] MEDS: Gabapentin 400 MG Capsule PO ×3 (05:32→20:36)
[2023-01-29] MEDS: Lidocaine 5% Patch 1 PATCH TOPICAL (08:32)
[2023-01-29] MEDS: Sertraline 50 MG Tablet PO (08:33)
[2023-01-29] MEDS: NIFEdipine 90 MG Tablet PO (08:33)
[2023-01-29] MEDS: Clopidogrel Bisulfate 75 MG Tablet PO (08:33)
[2023-01-29] MEDS: Ensure Plus High Protein 120 ML LIQUID PO ×3 (08:33→16:33)
[2023-01-29] MEDS: Senna/Docusate Sodium 1 Tablet 2 TABLET PO ×2 (08:33→20:36)
[2023-01-29] MEDS: Aspirin 81 MG TAB.CHEW PO (08:33)
[2023-01-29] MEDS: Captopril 12.5 MG Tablet 6.25 MG PO ×2 (08:33→20:37)
[2023-01-29] MEDS: Menthol/Lanolin/Calamine/Znox 113 GM Tube 1 APPLIC TOPICAL ×2 (08:34→20:37)
[2023-01-29] MEDS: Enoxaparin 40 MG/0.4 ML Syringe SC (08:34)
[2023-01-29] MEDS: Petrolatum 33% Tube 1 APPLIC TOPICAL ×2 (08:34→20:38)
[2023-01-29] MEDS: Nystatin Powder 15gm Bottle 1 APPLIC TOPICAL ×2 (08:35→20:39)
[2023-01-29 08:41] VITALS: BP 126/71; PULSE 73
[2023-01-29 10:00] VITALS: PULSE 64; O2SAT 97
[2023-01-29 14:26] VITALS: BP 130/70; PULSE 74; RESP 16; TEMP 36.2; O2SAT 96
[2023-01-29] MEDS: Acetaminophen 500 MG Tablet 1000 MG PO (20:36)
[2023-01-29] MEDS: MELATONIN 3 MG TABLET 6 MG PO (20:36)
[2023-01-29] MEDS: traZODone 100 MG Tablet PO (20:37)
[2023-01-29] MEDS: Donepezil HCl 5 MG Tablet PO (20:37)
[2023-01-29] MEDS: Atorvastatin Calcium 80 MG Tablet PO (20:38)
[2023-01-30] MEDS: Glycerin/Hypromellose/PEG400 15 ml Bottle 2 DRP EACH EYE ×3 (05:18→21:10)
[2023-01-30] MEDS: Gabapentin 400 MG Capsule PO ×3 (05:18→21:07)
[2023-01-30] MEDS: Levothyroxine 100 MCG Tablet PO (05:18)
[2023-01-30] MEDS: Arthritis Pain Compound 60 CLICK TUBE TOPICAL ×4 (05:19→21:09)
[2023-01-30 10:00] VITALS: BP 141/85; PULSE 62
[2023-01-30] MEDS: Ensure Plus High Protein 120 ML LIQUID PO ×3 (10:04→17:56)
[2023-01-30] MEDS: Aspirin 81 MG TAB.CHEW PO (10:04)
[2023-01-30] MEDS: Clopidogrel Bisulfate 75 MG Tablet PO (10:06)
[2023-01-30] MEDS: Senna/Docusate Sodium 1 Tablet 2 TABLET PO ×2 (10:06→21:12)
[2023-01-30] MEDS: Captopril 12.5 MG Tablet 6.25 MG PO ×2 (10:06→21:11)
[2023-01-30] MEDS: Lidocaine 5% Patch 1 PATCH TOPICAL (10:07)
[2023-01-30] MEDS: NIFEdipine 90 MG Tablet PO (10:08)
[2023-01-30] MEDS: Sertraline 50 MG Tablet PO (10:09)
[2023-01-30] MEDS: Nystatin Powder 15gm Bottle 1 APPLIC TOPICAL ×2 (10:10→21:09)
[2023-01-30] MEDS: Enoxaparin 40 MG/0.4 ML Syringe SC (10:10)
[2023-01-30] MEDS: Menthol/Lanolin/Calamine/Znox 113 GM Tube 1 APPLIC TOPICAL ×2 (10:11→21:09)
[2023-01-30] MEDS: Petrolatum 33% Tube 1 APPLIC TOPICAL ×2 (10:11→21:13)
[2023-01-30 10:50] VITALS: PULSE 67; RESP 18; O2SAT 95
[2023-01-30 16:00] VITALS: BP 138/80; PULSE 62; RESP 16; TEMP 36.2; O2SAT 94
[2023-01-30 17:53] VITALS: BP 138/80; PULSE 62; RESP 16; TEMP 36.2; O2SAT 94
[2023-01-30] MEDS: Acetaminophen 500 MG Tablet 1000 MG PO (21:07)
[2023-01-30] MEDS: Donepezil HCl 5 MG Tablet PO (21:10)
[2023-01-30] MEDS: traZODone 100 MG Tablet PO (21:11)
[2023-01-30] MEDS: Atorvastatin Calcium 80 MG Tablet PO (21:12)
[2023-01-30] MEDS: MELATONIN 3 MG TABLET 6 MG PO (21:12)
[2023-01-30 21:20] VITALS: BP 141/76; PULSE 66
[2023-01-31] MEDS: Gabapentin 400 MG Capsule PO ×3 (05:05→21:54)
[2023-01-31] MEDS: Arthritis Pain Compound 60 CLICK TUBE TOPICAL ×4 (05:05→21:54)
[2023-01-31] MEDS: Glycerin/Hypromellose/PEG400 15 ml Bottle 2 DRP EACH EYE ×3 (05:05→21:54)
[2023-01-31] MEDS: Levothyroxine 100 MCG Tablet PO (05:05)
[2023-01-31 05:42] VITALS: RESP 17
[2023-01-31] MEDS: Ensure Plus High Protein 120 ML LIQUID PO ×3 (08:44→17:10)
[2023-01-31] MEDS: Aspirin 81 MG TAB.CHEW PO (08:44)
[2023-01-31] MEDS: Enoxaparin 40 MG/0.4 ML Syringe SC (08:45)
[2023-01-31] MEDS: Menthol/Lanolin/Calamine/Znox 113 GM Tube 1 APPLIC TOPICAL ×2 (08:46→21:55)
[2023-01-31] MEDS: Petrolatum 33% Tube 1 APPLIC TOPICAL ×2 (08:47→21:56)
[2023-01-31] MEDS: Captopril 12.5 MG Tablet 6.25 MG PO ×2 (08:47→21:56)
[2023-01-31] MEDS: Lidocaine 5% Patch 1 PATCH TOPICAL (08:48)
[2023-01-31] MEDS: Clopidogrel Bisulfate 75 MG Tablet PO (08:50)
[2023-01-31] MEDS: NIFEdipine 90 MG Tablet PO (08:50)
[2023-01-31] MEDS: Sertraline 50 MG Tablet PO (08:51)
[2023-01-31] MEDS: Nystatin Powder 15gm Bottle 1 APPLIC TOPICAL ×2 (08:56→21:57)
[2023-01-31 14:30] VITALS: BP 134/76; PULSE 63; RESP 18; O2SAT 98
[2023-01-31] MEDS: Acetaminophen 500 MG Tablet 1000 MG PO ×2 (15:36→21:55)
[2023-01-31 16:00] VITALS: TEMP 36.4
[2023-01-31] MEDS: Donepezil HCl 5 MG Tablet PO (21:55)
[2023-01-31] MEDS: MELATONIN 3 MG TABLET 6 MG PO (21:56)
[2023-01-31] MEDS: traZODone 100 MG Tablet PO (21:56)
[2023-01-31] MEDS: Atorvastatin Calcium 80 MG Tablet PO (21:57)
[2023-01-31 22:05] VITALS: BP 136/87; PULSE 64
--- NOTE | 2023-02-01 02:32 | NURSING ---
Patient not complaint to cold compresses for bilateral under-eyes.
[2023-02-01] MEDS: Arthritis Pain Compound 60 CLICK TUBE TOPICAL ×4 (05:19→21:46)
[2023-02-01] MEDS: Gabapentin 400 MG Capsule PO ×3 (05:19→21:42)
[2023-02-01] MEDS: Levothyroxine 100 MCG Tablet PO (05:19)
[2023-02-01] MEDS: Glycerin/Hypromellose/PEG400 15 ml Bottle 2 DRP EACH EYE ×3 (05:19→21:45)
[2023-02-01] MEDS: Ensure Plus High Protein 120 ML LIQUID PO ×3 (08:39→16:47)
[2023-02-01] MEDS: Enoxaparin 40 MG/0.4 ML Syringe SC (08:39)
[2023-02-01] MEDS: NIFEdipine 90 MG Tablet PO (08:40)
[2023-02-01] MEDS: Captopril 12.5 MG Tablet 6.25 MG PO ×2 (08:40→21:43)
[2023-02-01] MEDS: Clopidogrel Bisulfate 75 MG Tablet PO (08:40)
[2023-02-01] MEDS: Petrolatum 33% Tube 1 APPLIC TOPICAL ×2 (08:40→21:46)
[2023-02-01] MEDS: Aspirin 81 MG TAB.CHEW PO (08:40)
[2023-02-01] MEDS: Sertraline 50 MG Tablet PO (08:40)
[2023-02-01] MEDS: Lidocaine 5% Patch 1 PATCH TOPICAL (08:40)
[2023-02-01] MEDS: Senna/Docusate Sodium 1 Tablet 2 TABLET PO ×2 (08:40→21:44)
[2023-02-01] MEDS: Menthol/Lanolin/Calamine/Znox 113 GM Tube 1 APPLIC TOPICAL ×2 (08:41→21:45)
[2023-02-01] MEDS: Nystatin Powder 15gm Bottle 1 APPLIC TOPICAL ×2 (08:41→21:45)
[2023-02-01 08:49] VITALS: BP 136/78; PULSE 62
--- NOTE | 2023-02-01 10:52 | NURSING ---
Waiting for phone call from Dr. Sepulveda's office did not receive one for 0900 appt. they did end up calling at 0950 but unable to answer the phone at that time was with another pt. Called office and they are checking with Dr. Sepulveda if he can call again or we will need to reschedule.
[2023-02-01 13:16] VITALS: BP 132/84; PULSE 64; RESP 16; TEMP 36.3; O2SAT 93
--- NOTE | 2023-02-01 14:19 | CASEMGMT ---
Social Work SW met with patient's brother to gain more information on pt's finances. Getting access to pt's bank accounts and statements was successful. Emailed to this worker the last 6 months of bank statements, gained further information and asset information. Pt appears to meet qualifications for Medicaid. SW sent updated information to [facility] and requested timely follow up. [facility] can only accept pt when pt is fully approved for UMM. Brother prefers [facility] as FOC. If not, [facility] can accept with MCDP#. ROWAN will continue to follow. ÁNGELA Cristina
--- NOTE | 2023-02-01 17:49 | NURSING ---
Pt had virtual appt with Dr. Sepulveda. Pt to continue with medication as ordered and Discontinue Plavix at the end of February. Pt to have follow up in 3 months.
[2023-02-01] MEDS: MELATONIN 3 MG TABLET 6 MG PO (21:42)
[2023-02-01] MEDS: Donepezil HCl 5 MG Tablet PO (21:42)
[2023-02-01] MEDS: traZODone 100 MG Tablet PO (21:43)
[2023-02-01] MEDS: Atorvastatin Calcium 80 MG Tablet PO (21:43)
[2023-02-01] MEDS: Acetaminophen 500 MG Tablet 1000 MG PO (21:55)
[2023-02-01 23:00] VITALS: O2SAT 94
[2023-02-02] MEDS: Gabapentin 400 MG Capsule PO ×3 (05:45→21:44)
[2023-02-02] MEDS: Acetaminophen 500 MG Tablet 1000 MG PO ×2 (05:45→21:40)
[2023-02-02] MEDS: Levothyroxine 100 MCG Tablet PO (05:46)
[2023-02-02] MEDS: Arthritis Pain Compound 60 CLICK TUBE TOPICAL ×4 (05:46→21:40)
[2023-02-02] MEDS: Glycerin/Hypromellose/PEG400 15 ml Bottle 2 DRP EACH EYE ×3 (05:46→21:40)
[2023-02-02] MEDS: Nystatin Powder 15gm Bottle 1 APPLIC TOPICAL ×2 (08:58→21:44)
[2023-02-02] MEDS: Ensure Plus High Protein 120 ML LIQUID PO ×3 (08:58→17:21)
[2023-02-02] MEDS: Enoxaparin 40 MG/0.4 ML Syringe SC (08:59)
[2023-02-02] MEDS: Aspirin 81 MG TAB.CHEW PO (08:59)
[2023-02-02] MEDS: NIFEdipine 90 MG Tablet PO (08:59)
[2023-02-02] MEDS: Lidocaine 5% Patch 1 PATCH TOPICAL (08:59)
[2023-02-02] MEDS: Clopidogrel Bisulfate 75 MG Tablet PO (08:59)
[2023-02-02] MEDS: Captopril 12.5 MG Tablet 6.25 MG PO ×2 (09:00→21:41)
[2023-02-02] MEDS: Polyethylene Glycol 3350 17 GM PACKET PO (09:00)
[2023-02-02] MEDS: Sertraline 50 MG Tablet PO (09:00)
[2023-02-02] MEDS: Menthol/Lanolin/Calamine/Znox 113 GM Tube 1 APPLIC TOPICAL ×2 (09:01→21:44)
[2023-02-02] MEDS: Petrolatum 33% Tube 1 APPLIC TOPICAL ×2 (09:01→21:45)
[2023-02-02 09:05] VITALS: BP 140/78; PULSE 73; RESP 16; TEMP 36.2; O2SAT 97
[2023-02-02 09:35] VITALS: BMI 36.6
--- NOTE | 2023-02-02 19:13 | NURSING ---
Pt refusing cold compresses to darin-orbital area today, multiple offers refused. Denies pain
[2023-02-02] MEDS: Donepezil HCl 5 MG Tablet PO (21:40)
[2023-02-02] MEDS: traZODone 100 MG Tablet PO (21:40)
[2023-02-02] MEDS: MELATONIN 3 MG TABLET 6 MG PO (21:41)
[2023-02-02] MEDS: Senna/Docusate Sodium 1 Tablet 2 TABLET PO (21:41)
[2023-02-02] MEDS: Atorvastatin Calcium 80 MG Tablet PO (21:42)
[2023-02-02 22:15] VITALS: O2SAT 96
[2023-02-03] MEDS: Arthritis Pain Compound 60 CLICK TUBE TOPICAL ×4 (05:39→21:17)
[2023-02-03] MEDS: Levothyroxine 100 MCG Tablet PO (05:39)
[2023-02-03] MEDS: Glycerin/Hypromellose/PEG400 15 ml Bottle 2 DRP EACH EYE ×3 (05:39→21:17)
[2023-02-03] MEDS: Gabapentin 400 MG Capsule PO ×3 (05:42→21:16)
[2023-02-03] MEDS: Acetaminophen 500 MG Tablet 1000 MG PO ×3 (05:42→21:16)
[2023-02-03] MEDS: Clopidogrel Bisulfate 75 MG Tablet PO (10:04)
[2023-02-03] MEDS: Ensure Plus High Protein 120 ML LIQUID PO ×3 (10:04→15:58)
[2023-02-03] MEDS: Lidocaine 5% Patch 1 PATCH TOPICAL (10:04)
[2023-02-03] MEDS: Captopril 12.5 MG Tablet 6.25 MG PO ×2 (10:04→21:16)
[2023-02-03] MEDS: NIFEdipine 90 MG Tablet PO (10:05)
[2023-02-03] MEDS: Petrolatum 33% Tube 1 APPLIC TOPICAL ×2 (10:05→21:19)
[2023-02-03] MEDS: Senna/Docusate Sodium 1 Tablet 2 TABLET PO (10:05)
[2023-02-03] MEDS: Sertraline 50 MG Tablet PO (10:05)
[2023-02-03] MEDS: Aspirin 81 MG TAB.CHEW PO (10:05)
[2023-02-03] MEDS: Enoxaparin 40 MG/0.4 ML Syringe SC (10:05)
[2023-02-03] MEDS: Nystatin Powder 15gm Bottle 1 APPLIC TOPICAL ×2 (10:06→21:19)
[2023-02-03] MEDS: Menthol/Lanolin/Calamine/Znox 113 GM Tube 1 APPLIC TOPICAL ×2 (10:06→21:19)
[2023-02-03 15:45] VITALS: BP 128/86; PULSE 65; RESP 18; TEMP 36.9; O2SAT 97
[2023-02-03] MEDS: Atorvastatin Calcium 80 MG Tablet PO (21:18)
[2023-02-03] MEDS: MELATONIN 3 MG TABLET 6 MG PO (21:18)
[2023-02-03] MEDS: Donepezil HCl 5 MG Tablet PO (21:18)
[2023-02-03] MEDS: traZODone 100 MG Tablet PO (21:18)
[2023-02-03 21:27] VITALS: BP 151/88; PULSE 61
[2023-02-04] MEDS: Levothyroxine 100 MCG Tablet PO (05:09)
[2023-02-04] MEDS: Gabapentin 400 MG Capsule PO ×3 (05:09→20:45)
[2023-02-04] MEDS: Glycerin/Hypromellose/PEG400 15 ml Bottle 2 DRP EACH EYE ×2 (05:09→20:47)
[2023-02-04] MEDS: Arthritis Pain Compound 60 CLICK TUBE TOPICAL ×4 (05:09→20:48)
[2023-02-04 05:29] LABS: Absolute Lymphocyte Count 1.86 X10^3/uL (0.83-4.51); Absolute Neutrophil Count 5.4 X10^3/uL (2.0-7.7); Basophil# 0.06 X10^3/uL; Basophil% 0.7 % (0-1); Eosinophil# 0.75 X10^3/uL; Eosinophils% 8.6 % (0-5); Hematocrit 40.4 % (40-54); Hemoglobin 13.2 g/dL (13.0-16.5); Lymphocyte # 1.86 X10^3/ul (0.83-4.51); Lymphocyte % 21.3 % (19-41); Mean Corp Hgb Conc 32.7 g/dL (32-36); Mean Corpuscular Hgb 29.8 pg (27.0-32.0); Mean Corpuscular Volume 91.2 fL (80-94); Mean Platelet Vol. 9.1 fl (6.2-12.0); Monocyte# 0.67 X10^3/uL; Monocyte% 7.7 % (0-10); NRBC Flagged by Analyzer 0 % (0-5); Neutrophil # 5.35 X10^3/uL (2.7-7.7); Neutrophil % 61.4 % (47-70); Platelet Count 262 K/mm3 (150-450); RBC Distribution Width CV 13.2 % (11.6-14.6); RBC Distribution Width SD 44.8 fl (35.1-43.9); Red Blood Count 4.43 M/mm3 (4.6-6.2); White Blood Count 8.7 K/mm3 (4.4-11.0)
[2023-02-04 05:52] LABS: Anion Gap 4 (5-15); BUN 21 mg/dL (7-18); BUN/Creat Ratio 17.2 RATIO (10-20); Calcium,Total 8.5 mg/dL (8.5-10.1); Chloride 107 mmol/L (98-107); Creatinine, Serum 1.22 mg/dL (0.70-1.30); EST Glomerular Filtration Rate 65 mL/min (>60); Est Glom Filt Rate - Afr Amer 78 mL/min (>60); Estimated Creatinine Clearance 61.71 ml/min; Glucose 100 mg/dL (74-106); Potassium 4.3 mmol/L (3.5-5.1); Sodium Level 139 mmol/L (136-145)
--- NOTE | 2023-02-04 06:14 | NURSING ---
Patient not compliant with cool compress to bilateral under-eyes.
[2023-02-04 08:51] LABS: Thyroid Stim Hormone (TSH) 3.84 uIU/mL (0.358-3.74)
[2023-02-04] MEDS: Ensure Plus High Protein 120 ML LIQUID PO ×2 (09:26→13:40)
[2023-02-04] MEDS: Menthol/Lanolin/Calamine/Znox 113 GM Tube 1 APPLIC TOPICAL ×2 (09:27→20:58)
[2023-02-04] MEDS: Aspirin 81 MG TAB.CHEW PO (09:27)
[2023-02-04] MEDS: Captopril 12.5 MG Tablet 6.25 MG PO ×2 (09:27→20:49)
[2023-02-04] MEDS: Lidocaine 5% Patch 1 PATCH TOPICAL (09:28)
[2023-02-04] MEDS: Enoxaparin 40 MG/0.4 ML Syringe SC (09:29)
[2023-02-04] MEDS: Nystatin Powder 15gm Bottle 1 APPLIC TOPICAL ×2 (09:30→20:58)
[2023-02-04] MEDS: Clopidogrel Bisulfate 75 MG Tablet PO (09:31)
[2023-02-04] MEDS: Sertraline 50 MG Tablet PO (09:31)
[2023-02-04] MEDS: NIFEdipine 90 MG Tablet PO (09:31)
[2023-02-04] MEDS: Petrolatum 33% Tube 1 APPLIC TOPICAL ×2 (09:35→20:58)
[2023-02-04 14:59] VITALS: BP 133/81; PULSE 74; RESP 18; TEMP 36.1; O2SAT 94
[2023-02-04] MEDS: Atorvastatin Calcium 80 MG Tablet PO (20:46)
[2023-02-04] MEDS: MELATONIN 3 MG TABLET 6 MG PO (20:46)
[2023-02-04] MEDS: traZODone 100 MG Tablet PO (20:46)
[2023-02-04] MEDS: Donepezil HCl 5 MG Tablet PO (20:46)
[2023-02-04] MEDS: Senna/Docusate Sodium 1 Tablet 2 TABLET PO (20:47)
[2023-02-04] MEDS: Acetaminophen 500 MG Tablet 1000 MG PO (21:11)
[2023-02-05] MEDS: Gabapentin 400 MG Capsule PO ×3 (05:58→21:23)
[2023-02-05] MEDS: Levothyroxine 100 MCG Tablet PO (05:59)
[2023-02-05] MEDS: Lidocaine 5% Patch 1 PATCH TOPICAL (08:55)
[2023-02-05] MEDS: Petrolatum 33% Tube 1 APPLIC TOPICAL ×2 (08:57→21:27)
[2023-02-05] MEDS: Enoxaparin 40 MG/0.4 ML Syringe SC (08:57)
[2023-02-05] MEDS: Captopril 12.5 MG Tablet 6.25 MG PO ×2 (08:58→21:26)
[2023-02-05] MEDS: NIFEdipine 90 MG Tablet PO (08:58)
[2023-02-05] MEDS: Sertraline 50 MG Tablet PO (08:58)
[2023-02-05] MEDS: Clopidogrel Bisulfate 75 MG Tablet PO (08:58)
[2023-02-05] MEDS: Menthol/Lanolin/Calamine/Znox 113 GM Tube 1 APPLIC TOPICAL ×2 (08:59→21:27)
[2023-02-05] MEDS: Aspirin 81 MG TAB.CHEW PO (08:59)
[2023-02-05] MEDS: Nystatin Powder 15gm Bottle 1 APPLIC TOPICAL ×2 (08:59→21:27)
[2023-02-05] MEDS: Ensure Plus High Protein 120 ML LIQUID PO ×3 (09:02→18:17)
[2023-02-05 09:05] VITALS: BP 157/75; PULSE 61
[2023-02-05] MEDS: Acetaminophen 500 MG Tablet 1000 MG PO (09:38)
--- NOTE | 2023-02-05 10:46 | CASEMGMT ---
Social Work In preparation for insurance update today and if issued a DC date, ROWAN updated [facility] via Careport and confirmed admission over the weekend, if needed. Medicaid application has been submitted by [facility] to [facility]; just awaiting pending number. SW spoke with brother on plans. Brother agreeable. IDT aware. Will continue to follow. ÁNGELA Cristina
[2023-02-05] MEDS: Arthritis Pain Compound 60 CLICK TUBE TOPICAL ×3 (11:50→21:26)
[2023-02-05] MEDS: Glycerin/Hypromellose/PEG400 15 ml Bottle 2 DRP EACH EYE ×2 (13:05→21:24)
[2023-02-05 14:23] VITALS: BP 132/71; PULSE 66; RESP 18; TEMP 36.2; O2SAT 92
--- NOTE | 2023-02-05 16:03 | CASEMGMT ---
Social Work Patient's insurance approved until 02.10.23. Updated [facility]. Uploaded insurance card into [facility], at [facility]'s request. Have attempted multiple times today to start PASRR process in the [facility] system, but continue to get an error that a PASRR or convalescent exemption is in process with [facility]. funeral planner from [facility], Salome Guy, reports has deleted the process on [facility]'s end. This underwriter solicitation director sent a secure message to [place] PASRR department requesting assistance with this matter. Plan: [facility] when determined to be ready for discharge. -CODY Porter
[2023-02-05] MEDS: oxyCODONE 5 MG Tablet PO (18:19)
[2023-02-05] MEDS: traMADol 50 MG Tablet PO (21:23)
[2023-02-05] MEDS: traZODone 100 MG Tablet PO (21:24)
[2023-02-05] MEDS: Atorvastatin Calcium 80 MG Tablet PO (21:24)
[2023-02-05] MEDS: MELATONIN 3 MG TABLET 6 MG PO (21:25)
[2023-02-05] MEDS: Senna/Docusate Sodium 1 Tablet 2 TABLET PO (21:25)
[2023-02-05] MEDS: Donepezil HCl 5 MG Tablet PO (21:26)
[2023-02-06] MEDS: Arthritis Pain Compound 60 CLICK TUBE TOPICAL ×4 (06:03→21:35)
[2023-02-06] MEDS: Glycerin/Hypromellose/PEG400 15 ml Bottle 2 DRP EACH EYE ×3 (06:03→21:38)
[2023-02-06] MEDS: Levothyroxine 112 MCG Tablet PO (06:04)
[2023-02-06] MEDS: Gabapentin 400 MG Capsule PO ×3 (06:04→21:34)
[2023-02-06] MEDS: Petrolatum 33% Tube 1 APPLIC TOPICAL ×2 (08:11→21:52)
[2023-02-06] MEDS: Aspirin 81 MG TAB.CHEW PO (08:11)
[2023-02-06] MEDS: Ensure Plus High Protein 120 ML LIQUID PO ×3 (08:11→16:54)
[2023-02-06] MEDS: Menthol/Lanolin/Calamine/Znox 113 GM Tube 1 APPLIC TOPICAL ×2 (08:12→21:53)
[2023-02-06] MEDS: Captopril 12.5 MG Tablet 6.25 MG PO ×2 (08:13→21:34)
[2023-02-06] MEDS: Lidocaine 5% Patch 1 PATCH TOPICAL (08:14)
[2023-02-06] MEDS: Nystatin Powder 15gm Bottle 1 APPLIC TOPICAL ×2 (08:15→21:53)
[2023-02-06] MEDS: Clopidogrel Bisulfate 75 MG Tablet PO (08:16)
[2023-02-06] MEDS: NIFEdipine 90 MG Tablet PO (08:16)
[2023-02-06] MEDS: Sertraline 50 MG Tablet PO (08:17)
[2023-02-06] MEDS: Senna/Docusate Sodium 1 Tablet 2 TABLET PO (08:17)
[2023-02-06] MEDS: Enoxaparin 40 MG/0.4 ML Syringe SC (08:20)
[2023-02-06 09:21] VITALS: BP 124/74; PULSE 68
[2023-02-06 10:00] VITALS: RESP 16; O2SAT 93
[2023-02-06 14:40] VITALS: BP 136/80; PULSE 73; RESP 18; TEMP 36.2; O2SAT 94
[2023-02-06] MEDS: traZODone 100 MG Tablet PO (21:33)
[2023-02-06] MEDS: Atorvastatin Calcium 80 MG Tablet PO (21:34)
[2023-02-06] MEDS: Donepezil HCl 5 MG Tablet PO (21:34)
[2023-02-06] MEDS: MELATONIN 3 MG TABLET 6 MG PO (21:34)
[2023-02-07] MEDS: Glycerin/Hypromellose/PEG400 15 ml Bottle 2 DRP EACH EYE ×3 (06:08→20:54)
[2023-02-07] MEDS: Arthritis Pain Compound 60 CLICK TUBE TOPICAL ×4 (06:10→20:54)
[2023-02-07] MEDS: Levothyroxine 112 MCG Tablet PO (06:11)
[2023-02-07] MEDS: Gabapentin 400 MG Capsule PO ×3 (06:11→20:52)
[2023-02-07] MEDS: NIFEdipine 90 MG Tablet PO (08:14)
[2023-02-07] MEDS: Ensure Plus High Protein 120 ML LIQUID PO ×3 (08:14→17:21)
[2023-02-07] MEDS: Sertraline 50 MG Tablet PO (08:14)
[2023-02-07] MEDS: Captopril 12.5 MG Tablet 6.25 MG PO ×2 (08:14→20:53)
[2023-02-07] MEDS: Clopidogrel Bisulfate 75 MG Tablet PO (08:14)
[2023-02-07] MEDS: Lidocaine 5% Patch 1 PATCH TOPICAL (08:15)
[2023-02-07] MEDS: Menthol/Lanolin/Calamine/Znox 113 GM Tube 1 APPLIC TOPICAL ×2 (08:15→20:55)
[2023-02-07] MEDS: Aspirin 81 MG TAB.CHEW PO (08:15)
[2023-02-07] MEDS: Petrolatum 33% Tube 1 APPLIC TOPICAL ×2 (08:15→20:54)
[2023-02-07] MEDS: Nystatin Powder 15gm Bottle 1 APPLIC TOPICAL ×2 (08:16→20:56)
[2023-02-07] MEDS: Enoxaparin 40 MG/0.4 ML Syringe SC (08:16)
[2023-02-07 08:25] VITALS: BP 131/77; PULSE 60
[2023-02-07 15:05] VITALS: BP 112/61; PULSE 70; RESP 21; TEMP 36.2; O2SAT 96
[2023-02-07 20:30] VITALS: BP 119/84; PULSE 67
[2023-02-07] MEDS: MELATONIN 3 MG TABLET 6 MG PO (20:51)
[2023-02-07] MEDS: Acetaminophen 500 MG Tablet 1000 MG PO (20:52)
[2023-02-07] MEDS: Donepezil HCl 5 MG Tablet PO (20:53)
[2023-02-07] MEDS: Atorvastatin Calcium 80 MG Tablet PO (20:55)
[2023-02-07] MEDS: traZODone 100 MG Tablet PO (20:55)
[2023-02-07 21:10] VITALS: BP 119/84; PULSE 67
[2023-02-08] MEDS: traMADol 50 MG Tablet PO (04:07)
[2023-02-08] MEDS: Glycerin/Hypromellose/PEG400 15 ml Bottle 2 DRP EACH EYE ×3 (04:10→21:29)
[2023-02-08] MEDS: Arthritis Pain Compound 60 CLICK TUBE TOPICAL ×4 (04:10→21:29)
[2023-02-08] MEDS: Gabapentin 400 MG Capsule PO ×3 (06:15→21:26)
[2023-02-08] MEDS: Levothyroxine 112 MCG Tablet PO (06:15)
[2023-02-08] MEDS: Captopril 12.5 MG Tablet 6.25 MG PO ×2 (08:25→21:27)
[2023-02-08] MEDS: Sertraline 50 MG Tablet PO (08:25)
[2023-02-08] MEDS: NIFEdipine 90 MG Tablet PO (08:25)
[2023-02-08] MEDS: Ensure Plus High Protein 120 ML LIQUID PO ×2 (08:25→18:00)
[2023-02-08] MEDS: Clopidogrel Bisulfate 75 MG Tablet PO (08:25)
[2023-02-08] MEDS: Aspirin 81 MG TAB.CHEW PO (08:25)
[2023-02-08] MEDS: Enoxaparin 40 MG/0.4 ML Syringe SC (08:26)
[2023-02-08] MEDS: Lidocaine 5% Patch 1 PATCH TOPICAL (08:26)
[2023-02-08] MEDS: Menthol/Lanolin/Calamine/Znox 113 GM Tube 1 APPLIC TOPICAL ×2 (08:27→21:29)
[2023-02-08] MEDS: Petrolatum 33% Tube 1 APPLIC TOPICAL ×2 (08:27→21:29)
[2023-02-08] MEDS: Nystatin Powder 15gm Bottle 1 APPLIC TOPICAL ×2 (08:27→21:29)
[2023-02-08 13:17] VITALS: BP 136/72; PULSE 72; RESP 18; TEMP 36.1; O2SAT 97
--- NOTE | 2023-02-08 16:28 | CASEMGMT ---
Addendum entered by Marilou Goodwin 02/19/23 13:14: SW phoned Godfrey benson. Spoke with son and notified he is NOK for pt, whom needs a decision maker, and inquired about son's preference to assist. Son stated he would not like to be involved in decision making for pt. SW thanked son for time. Witness to this conversation was Suyapa Higgins, Auto Crane Driver. ROWAN phoned Micah benson, and dtr Mandie, fariha; left voicemails. ROWAN will speak with brother and request he pursue application for guardianship. DR Murillo will return from the holiday next week and will request to complete pt's expert eval. Will continue to follow. Original Note: Social Work SW phoned Godfrey benson at [phone] - whom also lives with mother. Left VM for return call. ROWAN phoned dtr, Mandie Velazquez at [phone] - whom also lives with mother. Left VM for return call. SW phoned Micah benson at [phone]. Will need to obtain address. Left VM for return call. Marilou Goodwin, ÁNGELA PRINTING FILM STRIPPER
--- NOTE | 2023-02-08 19:19 | PN.TCU_ITS ---
Subjective Subjective Patient seen, examined for regulatory visit. He is watching television, waiting for dinner. His speech is better. He is able to lift right arm, right leg against gravity, but still noticeably weak. He has no new complaints. Objective Data Objective Data Vital Signs: Vital Signs Temp Pulse Resp BP Pulse Ox O2 Del Method 97.0 F L 72 18 136/72 H 97 Room Air 02/08/23 13:17 02/08/23 13:17 02/08/23 13:17 02/08/23 13:17 02/08/23 13:17 02/08/23 13:17 Oxygen Delivery Method Room Air Weight: 106.005 kg Body Mass Index (BMI) 36.6 Intake & Output: Intake and Output for Last 24 Hours 02/06/23 02/07/23 02/08/23 23:59 23:59 23:59 Intake Total 480 / 480 600 / 600 320 / 320 Balance 480 / 480 600 / 600 320 / 320 Medical Nutrition Assessment Dietitian: Malnutrition Criteria Met Start: 01/27/23 13:01 Freq: Status: Active Protocol: Document 01/27/23 13:01 SLA (Rec: 01/27/23 13:01 SLA Desktop) Nutrition Malnutrition Evidence of Malnutrition Exists Yes Malnutrition (severe): Acute Illness/Injury Evidenced By Suboptimal Energy Intake ( Severe),Weight Loss (Severe) Clinical Problem Acute Disease or Injury Related Malnutrition Etiology related to inadequate energy intake Signs/Symptoms as evidenced by <50% of est nutritional needs and 2.3% unintended wt loss x 1 wk Status Active Problem Unintended Weight Loss Status Inactive Problem Recommendation Dietitian Recommendations/Changes Will liberalize diet to regular d/t signs and symptoms of malnutrition Continue 4 oz ensure plus high protein 3x/day w/ medpass to help prevent additional wt loss if consumed. Rec appetite stimulant to help encourage increased po intake at meals Lab / Micro Data Attestation: I reviewed the patient's lab results. 02/04/23 05:13 02/04/23 05:13 Micro: Microbiology 02/01/23 04:40 Nasal Secretion SARS-CoV-2 Antigen (Rapid) - Final 01/28/23 05:16 Nasal Secretion SARS-CoV-2 Antigen (Rapid) - Final 01/25/23 01:10 Nasal Secretion SARS-CoV-2 Antigen (Rapid) - Final 01/21/23 05:50 Nasal Secretion SARS-CoV-2 Antigen (Rapid) - Final 01/18/23 06:00 Nasal Secretion SARS-CoV-2 Antigen (Rapid) - Final Physical Exam Const alert General Appearance: cooperative HEENT normocephalic Eyes PERRL and EOMs intact bilaterally Neck supple, no JVD and no carotid bruits Resp normal respiratory effort, normal air movement and clear to auscultation bilaterally Cardio regular rate and regular rhythm GI normal to inspection, nondistended, normoactive bowel sounds, non-tender and non-distended Extremity normal capillary refill General Extremity: Negative for edema Skin no rashes or lesions noted General Skin Exam: no breakdown Neuro Neuro Narrative: Right hemiparesis. Receptive/Expressive aphasia. Dysarthria. Speech: speech abnormal Psych affect normal Appearance: appropriate Assessment & Plan Assessment/Plan (1) Debility: (2) Left middle cerebral artery stroke: (3) Right hemiplegia: (4) Expressive aphasia: (5) Dysarthria: (6) Hypertension: (7) Hypothyroidism: (8) Hyperlipidemia: (9) Osteoarthritis: (10) Coronary artery disease: (11) Tobacco abuse: PLAN: Plan 57 year old male with below past medical history history hospitalized for left MCA stroke, right hemiplegia, expressive aphasia, dysarthria, no invasive intervention recommended, admitted to TCU with debility, here for rehabilitation, strengthening, prior to disposition determination. * Debility - PT/OT/ST. * Pain - Tylenol 1000mg q6 prn pain (1-3), Tramadol 50mg q6 prn pain (4-5), Oxycodone 5mg q4h prn pain (6-10), Lidoderm 1 patch topical daily, Arthritis pain compound 2 clicks 4x/day. * Bowel - Miralax 17gm daily, Senna/colace 2 tablet bid, Dulcolax 10mg pr daily prn, Magnesium citrate 300ml daily prn. * Adult immunization - Administer pneumonia vaccine, covid vaccine, flu vaccine as appropriate. * DVT prophylaxis - Lovenox 40mg sc daily. * Left MCA stroke - Aspirin 81mg daily, Plavix 75mg daily. * Hyperlipidemia - Atorvastatin 80mg qhs. * Hypertension - Captopril 6.25mg bid, Nifedipine 90mg daily. * Vascular dementia - Donepezil 5mg qhs. * Neuropathic pain - Gabapentin 400mg tid. * Hypothyroidism - Levothyroxine 112mcg daily. 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 * Dry eyes - Artificial tears 2 gtt ou tid. * Nutrition - Ensure Plus 120ml tidcm, Eucerin topical bid. * Skin irritation - Calmoseptine topical bid. * Tinea Corporis - Nystatin powder topical bid. * Depression - Sertraline 50mg daily. Capacity Capacity Assessment Tool Can the patient make a choice & communicate that choice?: Yes Can the patient understand benefits, risks and alternatives?: Yes Can the patient make a logical, rational choice?: Yes Is the choice the patient makes consistent w/ their values?: Yes Is there an impending, emergent risk to the patient?: No Does the patient have an Advance Directive?: No Is there a Surrogate Available?: Yes i.e. HCPOA: Yes i.e. close relative (spouse, child, parent, sibling)?: Yes
[2023-02-08] MEDS: oxyCODONE 5 MG Tablet PO (21:26)
[2023-02-08] MEDS: traZODone 100 MG Tablet PO (21:27)
[2023-02-08] MEDS: MELATONIN 3 MG TABLET 6 MG PO (21:27)
[2023-02-08] MEDS: Atorvastatin Calcium 80 MG Tablet PO (21:27)
[2023-02-08] MEDS: Donepezil HCl 5 MG Tablet PO (21:27)
[2023-02-08 21:37] VITALS: BP 127/82; PULSE 69
[2023-02-08 22:40] VITALS: O2SAT 97
[2023-02-09] MEDS: Gabapentin 400 MG Capsule PO ×3 (05:47→22:17)
[2023-02-09] MEDS: Arthritis Pain Compound 60 CLICK TUBE TOPICAL ×4 (05:47→22:13)
[2023-02-09] MEDS: Glycerin/Hypromellose/PEG400 15 ml Bottle 2 DRP EACH EYE ×3 (05:47→22:14)
[2023-02-09] MEDS: Levothyroxine 112 MCG Tablet PO (05:47)
[2023-02-09 06:50] VITALS: O2SAT 95
[2023-02-09] MEDS: Ensure Plus High Protein 120 ML LIQUID PO ×2 (09:33→17:14)
[2023-02-09] MEDS: Captopril 12.5 MG Tablet 6.25 MG PO ×2 (09:34→22:13)
[2023-02-09] MEDS: Aspirin 81 MG TAB.CHEW PO (09:34)
[2023-02-09] MEDS: Lidocaine 5% Patch 1 PATCH TOPICAL (09:38)
[2023-02-09] MEDS: Clopidogrel Bisulfate 75 MG Tablet PO (09:39)
[2023-02-09] MEDS: Sertraline 50 MG Tablet PO (09:39)
[2023-02-09] MEDS: NIFEdipine 90 MG Tablet PO (09:39)
[2023-02-09] MEDS: Menthol/Lanolin/Calamine/Znox 113 GM Tube 1 APPLIC TOPICAL ×2 (09:41→22:14)
[2023-02-09] MEDS: Nystatin Powder 15gm Bottle 1 APPLIC TOPICAL ×2 (09:41→22:14)
[2023-02-09] MEDS: Enoxaparin 40 MG/0.4 ML Syringe SC (09:45)
[2023-02-09] MEDS: Petrolatum 33% Tube 1 APPLIC TOPICAL ×2 (09:51→22:15)
[2023-02-09] MEDS: oxyCODONE 5 MG Tablet PO ×2 (09:55→22:34)
[2023-02-09 09:57] VITALS: BP 141/80; PULSE 68
[2023-02-09 13:00] VITALS: BMI 36.5
[2023-02-09 13:15] VITALS: BP 123/78; PULSE 63; RESP 16; TEMP 36.1; O2SAT 93
[2023-02-09 22:10] VITALS: BP 124/70; PULSE 67; O2SAT 93
[2023-02-09] MEDS: traZODone 100 MG Tablet PO (22:13)
[2023-02-09] MEDS: Donepezil HCl 5 MG Tablet PO (22:13)
[2023-02-09] MEDS: Atorvastatin Calcium 80 MG Tablet PO (22:13)
[2023-02-09] MEDS: MELATONIN 3 MG TABLET 6 MG PO (22:13)
[2023-02-10] MEDS: Levothyroxine 112 MCG Tablet PO (05:52)
[2023-02-10] MEDS: Glycerin/Hypromellose/PEG400 15 ml Bottle 2 DRP EACH EYE ×3 (05:52→22:32)
[2023-02-10] MEDS: Gabapentin 400 MG Capsule PO ×3 (05:52→22:31)
[2023-02-10] MEDS: Arthritis Pain Compound 60 CLICK TUBE TOPICAL ×4 (05:53→22:32)
[2023-02-10] MEDS: Lidocaine 5% Patch 1 PATCH TOPICAL (08:23)
[2023-02-10] MEDS: NIFEdipine 90 MG Tablet PO (08:24)
[2023-02-10] MEDS: Sertraline 50 MG Tablet PO (08:25)
[2023-02-10] MEDS: Captopril 12.5 MG Tablet 6.25 MG PO ×2 (08:25→22:31)
[2023-02-10] MEDS: Clopidogrel Bisulfate 75 MG Tablet PO (08:25)
[2023-02-10] MEDS: Aspirin 81 MG TAB.CHEW PO (08:25)
[2023-02-10] MEDS: Nystatin Powder 15gm Bottle 1 APPLIC TOPICAL ×2 (08:27→22:31)
[2023-02-10] MEDS: Ensure Plus High Protein 120 ML LIQUID PO ×2 (08:27→13:07)
[2023-02-10] MEDS: Petrolatum 33% Tube 1 APPLIC TOPICAL ×2 (08:27→22:33)
[2023-02-10] MEDS: Enoxaparin 40 MG/0.4 ML Syringe SC (08:27)
[2023-02-10] MEDS: Senna/Docusate Sodium 1 Tablet 2 TABLET PO ×2 (08:27→22:30)
[2023-02-10] MEDS: Menthol/Lanolin/Calamine/Znox 113 GM Tube 1 APPLIC TOPICAL ×2 (08:27→22:33)
[2023-02-10 10:00] VITALS: PULSE 64; RESP 18; O2SAT 97
[2023-02-10 10:48] VITALS: BP 133/76; PULSE 64; RESP 16; TEMP 36; O2SAT 97
--- NOTE | 2023-02-10 13:34 | CASEMGMT ---
Social Work Insurance issued LCD 02/12, DC 02/13. Offered peer to peer rights. . agreed to complete P2P. ROWAN assisted Dr in completing P2P and won. NRD 02/16. ROWAN phoned brother to update. Brother appreciative. ROWAN will continue to follow. ÁNGELA CirstinaW
[2023-02-10] MEDS: oxyCODONE 5 MG Tablet PO (16:51)
[2023-02-10] MEDS: traZODone 100 MG Tablet PO (22:31)
[2023-02-10] MEDS: MELATONIN 3 MG TABLET 6 MG PO (22:31)
[2023-02-10] MEDS: Atorvastatin Calcium 80 MG Tablet PO (22:31)
[2023-02-10] MEDS: Acetaminophen 500 MG Tablet 1000 MG PO (22:32)
[2023-02-10] MEDS: Donepezil HCl 5 MG Tablet PO (22:32)
[2023-02-11] MEDS: Levothyroxine 112 MCG Tablet PO (05:34)
[2023-02-11] MEDS: Gabapentin 400 MG Capsule PO ×3 (05:34→22:20)
[2023-02-11] MEDS: Glycerin/Hypromellose/PEG400 15 ml Bottle 2 DRP EACH EYE ×3 (05:34→22:20)
[2023-02-11] MEDS: Arthritis Pain Compound 60 CLICK TUBE TOPICAL ×4 (05:34→22:22)
[2023-02-11 05:42] VITALS: PULSE 64; RESP 16; O2SAT 93
[2023-02-11 05:52] LABS: Absolute Neutrophil Count 4.9 X10^3/uL (2.0-7.7); Basophil# 0.07 X10^3/uL; Basophil% 0.8 % (0-1); Eosinophil# 0.69 X10^3/uL; Eosinophils% 8.1 % (0-5); Hematocrit 40.5 % (40-54); Hemoglobin 13.2 g/dL (13.0-16.5); Lymphocyte % 23.6 % (19-41); Mean Corp Hgb Conc 32.6 g/dL (32-36); Mean Corpuscular Hgb 30.1 pg (27.0-32.0); Mean Corpuscular Volume 92.5 fL (80-94); Mean Platelet Vol. 9.2 fl (6.2-12.0); Monocyte# 0.84 X10^3/uL; Monocyte% 9.9 % (0-10); NRBC Flagged by Analyzer 0 % (0-5); Neutrophil # 4.87 X10^3/uL (2.7-7.7); Neutrophil % 57.5 % (47-70); Platelet Count 271 K/mm3 (150-450); RBC Distribution Width CV 13.2 % (11.6-14.6); Red Blood Count 4.38 M/mm3 (4.6-6.2); White Blood Count 8.5 K/mm3 (4.4-11.0)
[2023-02-11 06:23] LABS: Anion Gap 6 (5-15); BUN 26 mg/dL (7-18); Calcium,Total 8.5 mg/dL (8.5-10.1); Chloride 106 mmol/L (98-107); Creatinine, Serum 1.37 mg/dL (0.70-1.30); EST Glomerular Filtration Rate 57 mL/min (>60); Est Glom Filt Rate - Afr Amer 68 mL/min (>60); Estimated Creatinine Clearance 54.95 ml/min; Glucose 96 mg/dL (74-106); Potassium 3.8 mmol/L (3.5-5.1); Sodium Level 140 mmol/L (136-145)
[2023-02-11] MEDS: Aspirin 81 MG TAB.CHEW PO (07:55)
[2023-02-11] MEDS: Enoxaparin 40 MG/0.4 ML Syringe SC (07:55)
[2023-02-11] MEDS: Clopidogrel Bisulfate 75 MG Tablet PO (07:55)
[2023-02-11] MEDS: Captopril 12.5 MG Tablet 6.25 MG PO ×2 (07:56→22:21)
[2023-02-11] MEDS: Ensure Plus High Protein 120 ML LIQUID PO ×3 (07:57→17:00)
[2023-02-11] MEDS: NIFEdipine 90 MG Tablet PO (07:58)
[2023-02-11] MEDS: Lidocaine 5% Patch 1 PATCH TOPICAL (07:58)
[2023-02-11] MEDS: Sertraline 50 MG Tablet PO (07:59)
[2023-02-11] MEDS: Senna/Docusate Sodium 1 Tablet 2 TABLET PO ×2 (07:59→22:22)
[2023-02-11] MEDS: Nystatin Powder 15gm Bottle 1 APPLIC TOPICAL ×2 (08:04→22:23)
[2023-02-11] MEDS: Petrolatum 33% Tube 1 APPLIC TOPICAL ×2 (08:05→22:21)
[2023-02-11] MEDS: Menthol/Lanolin/Calamine/Znox 113 GM Tube 1 APPLIC TOPICAL ×2 (08:05→22:23)
[2023-02-11 14:39] VITALS: BP 119/64; PULSE 74; RESP 16; TEMP 36.3; O2SAT 92
[2023-02-11] MEDS: oxyCODONE 5 MG Tablet PO (22:20)
[2023-02-11] MEDS: Donepezil HCl 5 MG Tablet PO (22:20)
[2023-02-11] MEDS: traZODone 100 MG Tablet PO (22:21)
[2023-02-11] MEDS: Atorvastatin Calcium 80 MG Tablet PO (22:21)
[2023-02-11] MEDS: MELATONIN 3 MG TABLET 6 MG PO (22:22)
[2023-02-12] MEDS: Gabapentin 400 MG Capsule PO ×3 (05:07→22:48)
[2023-02-12] MEDS: Glycerin/Hypromellose/PEG400 15 ml Bottle 2 DRP EACH EYE ×3 (05:08→22:51)
[2023-02-12] MEDS: Arthritis Pain Compound 60 CLICK TUBE TOPICAL ×4 (05:08→22:46)
[2023-02-12] MEDS: Levothyroxine 112 MCG Tablet PO (05:08)
[2023-02-12] MEDS: traMADol 50 MG Tablet PO (05:08)
[2023-02-12] MEDS: Lidocaine 5% Patch 1 PATCH TOPICAL (09:47)
[2023-02-12] MEDS: Enoxaparin 40 MG/0.4 ML Syringe SC (09:48)
[2023-02-12] MEDS: Aspirin 81 MG TAB.CHEW PO (09:48)
[2023-02-12] MEDS: Captopril 12.5 MG Tablet 6.25 MG PO ×2 (09:48→22:50)
[2023-02-12] MEDS: Menthol/Lanolin/Calamine/Znox 113 GM Tube 1 APPLIC TOPICAL ×2 (09:49→22:50)
[2023-02-12] MEDS: Petrolatum 33% Tube 1 APPLIC TOPICAL ×2 (09:49→22:49)
[2023-02-12] MEDS: Nystatin Powder 15gm Bottle 1 APPLIC TOPICAL ×2 (09:49→22:48)
[2023-02-12] MEDS: NIFEdipine 90 MG Tablet PO (09:50)
[2023-02-12] MEDS: Sertraline 50 MG Tablet PO (09:50)
[2023-02-12] MEDS: Clopidogrel Bisulfate 75 MG Tablet PO (09:50)
[2023-02-12] MEDS: Ensure Plus High Protein 120 ML LIQUID PO ×3 (09:53→16:59)
[2023-02-12] MEDS: oxyCODONE 5 MG Tablet PO (10:51)
[2023-02-12] MEDS: Acetaminophen 500 MG Tablet 1000 MG PO ×2 (10:51→23:00)
[2023-02-12 14:54] VITALS: BP 123/72; PULSE 60; RESP 15; TEMP 35.9; O2SAT 95
[2023-02-12] MEDS: MELATONIN 3 MG TABLET 6 MG PO (22:47)
[2023-02-12] MEDS: Donepezil HCl 5 MG Tablet PO (22:47)
[2023-02-12] MEDS: Atorvastatin Calcium 80 MG Tablet PO (22:48)
[2023-02-12] MEDS: traZODone 100 MG Tablet PO (22:49)
[2023-02-12 23:03] VITALS: BP 129/79; PULSE 64
[2023-02-13 06:00] VITALS: PULSE 70; RESP 18; O2SAT 98
[2023-02-13] MEDS: Gabapentin 400 MG Capsule PO ×3 (06:11→22:32)
[2023-02-13] MEDS: Glycerin/Hypromellose/PEG400 15 ml Bottle 2 DRP EACH EYE ×3 (06:11→22:31)
[2023-02-13] MEDS: Arthritis Pain Compound 60 CLICK TUBE TOPICAL ×4 (06:12→22:31)
[2023-02-13] MEDS: Levothyroxine 112 MCG Tablet PO (06:14)
[2023-02-13] MEDS: Ensure Plus High Protein 120 ML LIQUID PO ×2 (08:39→17:32)
[2023-02-13] MEDS: Enoxaparin 40 MG/0.4 ML Syringe SC (08:40)
[2023-02-13] MEDS: Sertraline 50 MG Tablet PO (08:41)
[2023-02-13] MEDS: Captopril 12.5 MG Tablet 6.25 MG PO ×2 (08:42→22:32)
[2023-02-13] MEDS: Aspirin 81 MG TAB.CHEW PO (08:43)
[2023-02-13] MEDS: Clopidogrel Bisulfate 75 MG Tablet PO (08:43)
[2023-02-13] MEDS: NIFEdipine 90 MG Tablet PO (08:43)
[2023-02-13] MEDS: Lidocaine 5% Patch 1 PATCH TOPICAL (08:46)
[2023-02-13] MEDS: Menthol/Lanolin/Calamine/Znox 113 GM Tube 1 APPLIC TOPICAL ×2 (08:55→22:31)
[2023-02-13] MEDS: Petrolatum 33% Tube 1 APPLIC TOPICAL ×2 (08:55→22:33)
[2023-02-13] MEDS: Nystatin Powder 15gm Bottle 1 APPLIC TOPICAL ×2 (08:56→22:33)
[2023-02-13] MEDS: oxyCODONE 5 MG Tablet PO ×2 (12:12→22:35)
[2023-02-13 15:12] VITALS: BP 123/58; PULSE 93; RESP 16; TEMP 35.8; O2SAT 95
[2023-02-13] MEDS: traMADol 50 MG Tablet PO (17:38)
[2023-02-13] MEDS: Donepezil HCl 5 MG Tablet PO (22:31)
[2023-02-13] MEDS: traZODone 100 MG Tablet PO (22:32)
[2023-02-13] MEDS: Atorvastatin Calcium 80 MG Tablet PO (22:32)
[2023-02-13] MEDS: MELATONIN 3 MG TABLET 6 MG PO (22:32)
[2023-02-14] MEDS: Levothyroxine 112 MCG Tablet PO (05:46)
[2023-02-14] MEDS: Arthritis Pain Compound 60 CLICK TUBE TOPICAL ×4 (05:46→21:05)
[2023-02-14] MEDS: Gabapentin 400 MG Capsule PO ×3 (05:46→21:02)
[2023-02-14] MEDS: Glycerin/Hypromellose/PEG400 15 ml Bottle 2 DRP EACH EYE ×3 (05:46→21:18)
[2023-02-14] MEDS: Menthol/Lanolin/Calamine/Znox 113 GM Tube 1 APPLIC TOPICAL ×2 (09:07→21:19)
[2023-02-14] MEDS: Captopril 12.5 MG Tablet 6.25 MG PO ×2 (09:08→21:06)
[2023-02-14] MEDS: Lidocaine 5% Patch 1 PATCH TOPICAL (09:08)
[2023-02-14] MEDS: Sertraline 50 MG Tablet PO (09:09)
[2023-02-14] MEDS: Clopidogrel Bisulfate 75 MG Tablet PO (09:09)
[2023-02-14] MEDS: Nystatin Powder 15gm Bottle 1 APPLIC TOPICAL ×2 (09:11→21:19)
[2023-02-14] MEDS: Enoxaparin 40 MG/0.4 ML Syringe SC (09:11)
[2023-02-14] MEDS: Petrolatum 33% Tube 1 APPLIC TOPICAL ×2 (09:12→21:20)
[2023-02-14] MEDS: Aspirin 81 MG TAB.CHEW PO (09:12)
[2023-02-14] MEDS: NIFEdipine 90 MG Tablet PO (09:14)
[2023-02-14] MEDS: Ensure Plus High Protein 120 ML LIQUID PO (11:54)
[2023-02-14 15:10] VITALS: BP 121/73; PULSE 71; RESP 18; TEMP 36.4; O2SAT 98
[2023-02-14] MEDS: Acetaminophen 500 MG Tablet 1000 MG PO (21:02)
[2023-02-14] MEDS: Donepezil HCl 5 MG Tablet PO (21:05)
[2023-02-14] MEDS: traZODone 100 MG Tablet PO (21:12)
[2023-02-14] MEDS: MELATONIN 3 MG TABLET 6 MG PO (21:12)
[2023-02-14] MEDS: Atorvastatin Calcium 80 MG Tablet PO (21:13)
[2023-02-14 22:00] VITALS: PULSE 76; RESP 16; O2SAT 94
[2023-02-15] MEDS: Glycerin/Hypromellose/PEG400 15 ml Bottle 2 DRP EACH EYE ×3 (06:30→20:55)
[2023-02-15] MEDS: Levothyroxine 112 MCG Tablet PO (06:30)
[2023-02-15] MEDS: Gabapentin 400 MG Capsule PO ×3 (06:31→20:57)
[2023-02-15] MEDS: Arthritis Pain Compound 60 CLICK TUBE TOPICAL ×4 (06:31→20:53)
[2023-02-15] MEDS: Nystatin Powder 15gm Bottle 1 APPLIC TOPICAL (08:12)
[2023-02-15] MEDS: Lidocaine 5% Patch 1 PATCH TOPICAL (08:13)
[2023-02-15] MEDS: Menthol/Lanolin/Calamine/Znox 113 GM Tube 1 APPLIC TOPICAL ×2 (08:13→20:57)
[2023-02-15] MEDS: Petrolatum 33% Tube 1 APPLIC TOPICAL ×2 (08:13→20:55)
[2023-02-15] MEDS: Aspirin 81 MG TAB.CHEW PO (08:14)
[2023-02-15] MEDS: Enoxaparin 40 MG/0.4 ML Syringe SC (08:14)
[2023-02-15] MEDS: Clopidogrel Bisulfate 75 MG Tablet PO (08:14)
[2023-02-15] MEDS: Captopril 12.5 MG Tablet 6.25 MG PO ×2 (08:14→20:55)
[2023-02-15] MEDS: NIFEdipine 90 MG Tablet PO (08:14)
[2023-02-15] MEDS: Sertraline 50 MG Tablet PO (08:14)
[2023-02-15] MEDS: Polyethylene Glycol 3350 17 GM PACKET PO (08:14)
[2023-02-15 10:00] VITALS: PULSE 75; RESP 16; O2SAT 94
[2023-02-15] MEDS: Ensure Plus High Protein 120 ML LIQUID PO ×2 (13:07→17:17)
[2023-02-15 15:19] VITALS: BP 127/66; PULSE 72; RESP 16; TEMP 36.1; O2SAT 95
[2023-02-15] MEDS: traZODone 100 MG Tablet PO (20:55)
[2023-02-15] MEDS: MELATONIN 3 MG TABLET 6 MG PO (20:56)
[2023-02-15] MEDS: Atorvastatin Calcium 80 MG Tablet PO (20:56)
[2023-02-15] MEDS: Donepezil HCl 5 MG Tablet PO (20:57)
[2023-02-16 04:51] VITALS: PULSE 67; RESP 18; O2SAT 97
[2023-02-16] MEDS: Arthritis Pain Compound 60 CLICK TUBE TOPICAL ×4 (05:42→20:44)
[2023-02-16] MEDS: Glycerin/Hypromellose/PEG400 15 ml Bottle 2 DRP EACH EYE ×2 (05:43→13:31)
[2023-02-16] MEDS: Gabapentin 400 MG Capsule PO ×3 (05:43→20:41)
[2023-02-16] MEDS: Levothyroxine 112 MCG Tablet PO (05:43)
[2023-02-16] MEDS: Acetaminophen 500 MG Tablet 1000 MG PO ×2 (05:43→17:41)
[2023-02-16] MEDS: Ensure Plus High Protein 120 ML LIQUID PO ×2 (09:29→11:50)
[2023-02-16] MEDS: Clopidogrel Bisulfate 75 MG Tablet PO (09:31)
[2023-02-16] MEDS: Aspirin 81 MG TAB.CHEW PO (09:32)
[2023-02-16] MEDS: Nystatin Powder 15gm Bottle 1 APPLIC TOPICAL ×2 (09:32→20:50)
[2023-02-16] MEDS: Sertraline 50 MG Tablet PO (09:32)
[2023-02-16] MEDS: NIFEdipine 90 MG Tablet PO (09:32)
[2023-02-16] MEDS: Enoxaparin 40 MG/0.4 ML Syringe SC (09:32)
[2023-02-16] MEDS: Captopril 12.5 MG Tablet 6.25 MG PO ×2 (09:32→20:42)
[2023-02-16] MEDS: Menthol/Lanolin/Calamine/Znox 113 GM Tube 1 APPLIC TOPICAL ×2 (09:33→20:51)
[2023-02-16] MEDS: Petrolatum 33% Tube 1 APPLIC TOPICAL (09:34)
[2023-02-16] MEDS: Lidocaine 5% Patch 1 PATCH TOPICAL (09:34)
[2023-02-16] MEDS: oxyCODONE 5 MG Tablet PO ×2 (09:38→17:40)
[2023-02-16 09:41] VITALS: BP 141/84; PULSE 70
[2023-02-16 15:46] VITALS: BP 119/70; PULSE 74; RESP 16; TEMP 36.9; O2SAT 91
--- NOTE | 2023-02-16 17:35 | CASEMGMT ---
Social Work SW spoke with [facility]. [facility] currently have a covid outbreak and are now unable to accept pt. Phone call to pt brother Hany and information relayed. SW asked Hany to consider other ECF options yousuf and ROWAN will follow up tomorrow and make appropriate referrals. MINDY Lutz
[2023-02-16] MEDS: Senna/Docusate Sodium 1 Tablet 2 TABLET PO (20:41)
[2023-02-16] MEDS: Atorvastatin Calcium 80 MG Tablet PO (20:42)
[2023-02-16] MEDS: Donepezil HCl 5 MG Tablet PO (20:42)
[2023-02-16] MEDS: traZODone 100 MG Tablet PO (20:42)
[2023-02-16] MEDS: MELATONIN 3 MG TABLET 6 MG PO (20:42)
[2023-02-17] MEDS: Gabapentin 400 MG Capsule PO ×3 (05:17→21:56)
[2023-02-17] MEDS: Glycerin/Hypromellose/PEG400 15 ml Bottle 2 DRP EACH EYE ×3 (05:17→21:55)
[2023-02-17] MEDS: Levothyroxine 112 MCG Tablet PO (05:17)
[2023-02-17] MEDS: Arthritis Pain Compound 60 CLICK TUBE TOPICAL ×4 (05:17→21:54)
[2023-02-17] MEDS: Ensure Plus High Protein 120 ML LIQUID PO ×3 (09:14→17:13)
[2023-02-17] MEDS: Enoxaparin 40 MG/0.4 ML Syringe SC (09:15)
[2023-02-17] MEDS: Clopidogrel Bisulfate 75 MG Tablet PO (09:15)
[2023-02-17] MEDS: Lidocaine 5% Patch 1 PATCH TOPICAL (09:15)
[2023-02-17] MEDS: Captopril 12.5 MG Tablet 6.25 MG PO ×2 (09:16→21:55)
[2023-02-17] MEDS: NIFEdipine 90 MG Tablet PO (09:16)
[2023-02-17] MEDS: Menthol/Lanolin/Calamine/Znox 113 GM Tube 1 APPLIC TOPICAL ×2 (09:16→21:55)
[2023-02-17] MEDS: Sertraline 50 MG Tablet PO (09:16)
[2023-02-17] MEDS: Aspirin 81 MG TAB.CHEW PO (09:16)
[2023-02-17] MEDS: Petrolatum 33% Tube 1 APPLIC TOPICAL ×2 (09:16→21:56)
[2023-02-17] MEDS: Nystatin Powder 15gm Bottle 1 APPLIC TOPICAL ×2 (09:17→21:55)
--- NOTE | 2023-02-17 09:27 | CASEMGMT ---
Addendum entered by Marilou Goodwin 02/17/23 13:26: [facility] can clinically accept, but BOM is to complete financial risk assessment with brother. VM left. completed P2P and won - NRD 02/24. ROWAN updated IDT, brother via phone, [facility] and [facility]. Will continue to follow. Original Note: Social Work SW phoned brother to inquire about additional SNFs. Brother has no preferences, but does not want pt to transfer to [facility] in [place]. ROWAN offered to refer to [facility] SNFs to see who can accept pt. Brother agreed. ROWAN updated insurance did issue LCD 02/18, DC 02/19. agreed to complete P2P again. SW/ left with P2P line prior to 0900, which was the deadline. SW to keep brother updated. Brother agreed to send referrals to all SNFs. ROWAN sent referrals to SNFs via [facility]. ROWAN confirmed [facility] not [facility] beds available. Will continue to follow. Marilou Goodwin, ÁNGELA HIGGINBOTHAMW
--- NOTE | 2023-02-17 12:23 | NURSING ---
Pt and family updated on positive Covid patient.
[2023-02-17 14:02] VITALS: BP 133/74; PULSE 74; RESP 18; TEMP 36.3; O2SAT 91
[2023-02-17] MEDS: Acetaminophen 500 MG Tablet 1000 MG PO (17:16)
[2023-02-17 19:45] VITALS: PULSE 74; RESP 16; O2SAT 94
[2023-02-17] MEDS: Donepezil HCl 5 MG Tablet PO (21:54)
[2023-02-17] MEDS: traZODone 100 MG Tablet PO (21:56)
[2023-02-17] MEDS: MELATONIN 3 MG TABLET 6 MG PO (21:56)
[2023-02-17] MEDS: Atorvastatin Calcium 80 MG Tablet PO (21:56)
[2023-02-17] MEDS: oxyCODONE 5 MG Tablet PO (21:57)
[2023-02-18] MEDS: Levothyroxine 112 MCG Tablet PO (05:15)
[2023-02-18] MEDS: Gabapentin 400 MG Capsule PO ×3 (05:15→21:45)
[2023-02-18] MEDS: Glycerin/Hypromellose/PEG400 15 ml Bottle 2 DRP EACH EYE ×2 (05:15→21:44)
[2023-02-18] MEDS: Arthritis Pain Compound 60 CLICK TUBE TOPICAL ×4 (05:15→21:43)
[2023-02-18 06:04] LABS: Absolute Lymphocyte Count 2.48 X10^3/uL (0.83-4.51); Absolute Neutrophil Count 4.8 X10^3/uL (2.0-7.7); Basophil# 0.06 X10^3/uL; Basophil% 0.7 % (0-1); Eosinophil# 0.65 X10^3/uL; Eosinophils% 7.4 % (0-5); Hematocrit 42.3 % (40-54); Hemoglobin 13.6 g/dL (13.0-16.5); Lymphocyte # 2.48 X10^3/ul (0.83-4.51); Lymphocyte % 28.2 % (19-41); Mean Corp Hgb Conc 32.2 g/dL (32-36); Mean Corpuscular Hgb 29.5 pg (27.0-32.0); Mean Corpuscular Volume 91.8 fL (80-94); Mean Platelet Vol. 9.1 fl (6.2-12.0); Monocyte# 0.76 X10^3/uL; Monocyte% 8.6 % (0-10); NRBC Flagged by Analyzer 0 % (0-5); Neutrophil # 4.81 X10^3/uL (2.7-7.7); Neutrophil % 54.8 % (47-70); Platelet Count 276 K/mm3 (150-450); RBC Distribution Width CV 13.2 % (11.6-14.6); RBC Distribution Width SD 44.7 fl (35.1-43.9); Red Blood Count 4.61 M/mm3 (4.6-6.2); White Blood Count 8.8 K/mm3 (4.4-11.0)
[2023-02-18 06:18] VITALS: PULSE 62; RESP 18; O2SAT 95
[2023-02-18 06:54] LABS: Anion Gap 5 (5-15); BUN 28 mg/dL (7-18); BUN/Creat Ratio 23.9 RATIO (10-20); Calcium,Total 8.5 mg/dL (8.5-10.1); Chloride 106 mmol/L (98-107); Creatinine, Serum 1.17 mg/dL (0.70-1.30); EST Glomerular Filtration Rate 68 mL/min (>60); Est Glom Filt Rate - Afr Amer 82 mL/min (>60); Estimated Creatinine Clearance 63.56 ml/min; Glucose 98 mg/dL (74-106); Potassium 3.8 mmol/L (3.5-5.1); Sodium Level 139 mmol/L (136-145)
[2023-02-18] MEDS: Aspirin 81 MG TAB.CHEW PO (08:23)
[2023-02-18] MEDS: Enoxaparin 40 MG/0.4 ML Syringe SC (08:23)
[2023-02-18] MEDS: Captopril 12.5 MG Tablet 6.25 MG PO ×2 (08:23→21:44)
[2023-02-18] MEDS: Sertraline 50 MG Tablet PO (08:23)
[2023-02-18] MEDS: Senna/Docusate Sodium 1 Tablet 2 TABLET PO (08:23)
[2023-02-18] MEDS: Clopidogrel Bisulfate 75 MG Tablet PO (08:23)
[2023-02-18] MEDS: Petrolatum 33% Tube 1 APPLIC TOPICAL ×2 (08:24→21:44)
[2023-02-18] MEDS: Menthol/Lanolin/Calamine/Znox 113 GM Tube 1 APPLIC TOPICAL (08:24)
[2023-02-18] MEDS: Lidocaine 5% Patch 1 PATCH TOPICAL (08:25)
[2023-02-18] MEDS: Nystatin Powder 15gm Bottle 1 APPLIC TOPICAL ×2 (08:25→21:45)
[2023-02-18] MEDS: Ensure Plus High Protein 120 ML LIQUID PO ×2 (10:05→11:55)
[2023-02-18 10:19] VITALS: BP 126/74; PULSE 88; RESP 17; TEMP 36.8
--- NOTE | 2023-02-18 10:29 | PCM.PN.DRR ---
Documented by User: Betty Adames 02/18/23 10:53 TCU RX Drug Regimen Review Subjective/Objective Subjective/Objective: Subjective: January TCU Note. 57 YOM presented to the ER with neuro S/S. Hospitalized for left MCA stroke, right hemiplegia, expressive aphasia, dysarthria, no invasive intervention recommended. Admitted to TCU with debility for strengthening and rehabilitation. Objective: Allergies Sulfa (Sulfonamide Antibiotics) Allergy (Verified 12/18/22 15:49) Other Current Medications Generic Name Dose Route Start Last Admin Trade Name Freq PRN Reason Stop Dose Admin Acetaminophen 1,000 mg 02/05/23 16:18 02/17/23 17:16 Acetaminophen 500 Mg Tablet PO 1,000 mg Q6H PRN PRN Administration Pain Score 1-3 Aspirin 81 mg 01/14/23 08:00 02/18/23 08:23 Aspirin 81 Mg Tab.Chew PO 81 mg BREAKFAST FANNIE Administration Atorvastatin Calcium 80 mg 01/13/23 22:00 02/17/23 21:56 Atorvastatin Calcium 80 Mg Tablet PO 80 mg QHS FANNIE Administration Bisacodyl 10 mg 01/22/23 07:35 Bisacodyl 10 Mg Suppository RC DAILY PRN Constipation Captopril 6.25 mg 01/13/23 22:00 02/18/23 08:23 Captopril 12.5 Mg Tablet PO 6.25 mg BID FANNIE Administration Protocol Clopidogrel Bisulfate 75 mg 01/14/23 10:00 02/18/23 08:23 Clopidogrel Bisulfate 75 Mg Tablet PO 75 mg DAILY FANNIE Administration Compound Med 2 click 01/13/23 17:00 02/18/23 05:15 Arthritis Pain Compound 60 Click Tube TOPICAL 2 click 4X/DAY FANNIE Administration Protocol Donepezil HCl 5 mg 01/13/23 22:00 02/17/23 21:54 Donepezil Hcl 5 Mg Tablet PO 5 mg QHS FANNIE Administration Enoxaparin Sodium 40 mg 01/14/23 10:00 02/18/23 08:23 Enoxaparin 40 Mg/0.4 Ml Syringe SC 40 mg DAILY FANNIE Administration Gabapentin 400 mg 01/13/23 14:00 02/18/23 05:15 Gabapentin 400 Mg Capsule PO 400 mg TID FANNIE Administration Glycerin/Hypromellose/Polyethylene 2 drp 01/13/23 14:00 02/18/23 05:15 Glycerin/Hypromellose/Lva546 15 Ml Bottle EACH EYE 2 drp TID FANNIE Administration Levothyroxine Sodium 112 mcg 02/06/23 06:00 02/18/23 05:15 Levothyroxine 112 Mcg Tablet PO 112 mcg DAILY@0600 [facility] Administration Lidocaine 1 patch 01/14/23 10:00 02/18/23 08:25 Lidocaine 5% Patch TOPICAL 1 patch DAILY FANNIE Administration Magnesium Citrate 300 ml 01/22/23 07:35 Magnesium Citrate 300 Ml PO DAILY PRN Constipation Melatonin 6 mg 01/13/23 22:00 02/17/23 21:56 Melatonin 3 Mg Tablet PO 6 mg QHS [facility] Administration Multi-Ingredient Cream 1 applic 01/15/23 10:00 02/18/23 08:24 Petrolatum 33% Tube TOPICAL 1 applic BID [facility] Administration Protocol Nifedipine 90 mg 01/14/23 10:00 02/17/23 09:16 Nifedipine 90 Mg Tablet PO 90 mg DAILY [facility] Administration Protocol Nutritional Formula (Lactose Free) 120 ml 01/20/23 12:45 02/18/23 10:05 Ensure Plus High Protein 120 Ml Liquid PO 120 ml TIDCM [facility] Administration Nystatin 1 applic 01/27/23 10:00 02/18/23 08:25 Nystatin Powder 15gm Bottle TOPICAL 1 applic BID [facility] Administration Protocol Oxycodone HCl 5 mg 02/05/23 16:18 02/17/23 21:57 Oxycodone 5 Mg Tablet PO 5 mg Q4H PRN PRN Administration Pain Score 6-10 Polyethylene Glycol 17 gm 01/14/23 10:00 02/18/23 08:25 Polyethylene Glycol 3350 17 Gm Packet PO Not Given DAILY [facility] Senna/Docusate Sodium 2 tablet 01/21/23 22:00 02/18/23 08:23 Senna/Docusate Sodium 1 Tablet PO 2 tablet BID [facility] Administration Sertraline HCl 50 mg 01/22/23 15:30 02/18/23 08:23 Sertraline 50 Mg Tablet PO 50 mg DAILY [facility] Administration Tramadol HCl 50 mg 02/05/23 16:18 02/13/23 17:38 Tramadol 50 Mg Tablet PO 50 mg Q6H PRN PRN Administration Pain Score 4-5 Trazodone HCl 100 mg 01/13/23 22:00 02/17/23 21:56 Trazodone 100 Mg Tablet PO 100 mg QHS FANNIE Administration Problem List (Updated 01/13/23 @ 15:[address] Bobby Murillo MD) Tobacco abuse (Acute) Coronary artery disease (Acute) Osteoarthritis (Acute) Hyperlipidemia (Acute) Hypothyroidism (Acute) Dysarthria (Acute) Expressive aphasia (Acute) Right hemiplegia (Acute) Left middle cerebral artery stroke (Acute) Debility (Acute) Hypertension (Chronic) Vital Signs Temp Pulse Resp BP Pulse Ox O2 Del Method 98.2 F 88 17 126/74 H 95 Room Air 02/18/23 10:19 02/18/23 10:19 02/18/23 10:19 02/18/23 10:19 02/18/23 06:18 02/18/23 06:18 Oxygen Delivery Method Room Air Weight: 106.231 kg Body Mass Index (BMI) 36.5 Sodium 139 mmol/L (136-145) 02/18/23 05:17 Potassium 3.8 mmol/L (3.5-5.1) 02/18/23 05:17 Chloride 106 mmol/L (98-107) 02/18/23 05:17 Carbon Dioxide 28.0 mmol/L (21.0-32.0) 02/18/23 05:17 Anion Gap 5 (5-15) 02/18/23 05:17 BUN 28 mg/dL (7-18) H 02/18/23 05:17 Creatinine 1.17 mg/dL (0.70-1.30) 02/18/23 05:17 Est GFR (MDRD) Af Amer 82 mL/min (>60) 02/18/23 05:17 Est GFR (MDRD) Non-Af 68 mL/min (>60) 02/18/23 05:17 BUN/Creatinine Ratio 23.9 RATIO (10-20) H 02/18/23 05:17 Glucose 98 mg/dL (74-106) 02/18/23 05:17 Assessment/Plan: 1. Pain: acetaminophen 1000 mg PO Q6H as needed for pain 1-3, tramadol 50mg PO Q6H PRN pain 4-5, oxycodone 5mg PO Q4H PRN pain 6-10, lidocaine 5% 1 patch topically daily, Arthritis pain compound 2 clicks topically 4 times a day. Monitor ALT/AST (AST was 17 U/L on 11/27/22 and ALT was 24 on same date), increased pain, renal function, constipation and respiratory depression and as needed medication usage. Resident has needed?8 doses of acetaminophen (last dose 02/17), 4 doses of tramadol (last dose 02/13) and 12 doses of oxycodone (last dose 02/17) for a range of pain scores and different locations. 2. Bowel: Miralax 17 gm PO daily, senna/docusate PO 1 tablet BID and bisacodyl 10mg RC daily PRN constipation. Monitor for diarrhea, constipation and PRN usage. Last documented bowel movement 02/06. Please consider changing senna/docusate and Miralax to PRN as resident has been refusing most doses in the past 2 weeks. Thanks. Resident has not had any PRN bisacodyl doses. 3. Left MCA stroke: aspirin 81 mg PO daily and clopidogrel 75 mg PO daily. Monitor patient for signs of bleeding, bruising and hemoglobin (last 13.6g/dL). If resident is to remain here thru February please add a stop date of 03/24/23 to clopidogrel per instructions from Dr. Sepulveda in 02/01 nursing note. Thanks. 4. Hyperlipidemia: atorvastatin 80 mg PO daily QHS. Monitor ALT/AST?(AST was 17 U/L on 11/27/22 and ALT was 24 on same date), myalgias, and lipid levels (LDL was 141 mg/dl and total cholesterol was 201 mg/dl on 11/27/22). 5. Hypertension: captopril 6.25 mg PO BID and nifedipine 90 mg daily. Monitor blood pressure (126/74 on 02/18/23), heart rate (88 BPM on 02/18/23), cough, potassium (last 3.8mmol/L) and swelling. 6. Hypothyroidism: levothyroxine 112 mcg PO daily. Monitor S/S of hypothyroidism, TSH (last 11/27/22) and Free T4. If resident is still here, please consider ordering a TSH 4 weeks (03/06/23) after dose increase on 02/06. Thanks. 7. DVT prophylaxis: enoxaparin 40 mg SQ?daily. Monitor for signs or bleeding, bruising, hemoglobin, platelets (last 276,000) and renal function (estimated CrCL was 63 mL/min on 02/18/23). 8. Dry Eyes/Conjunctivitis: Artificial tears 2 drops OU TID. Monitor for redness, dryness and for any discharge. 9. Vascular Dementia: donepezil 5 mg PO QHS. Monitor for diarrhea, nausea, and insomnia. Assessment/Plan for indications treated with psychotropic medications: 1. Neuropathic pain: gabapentin 400mg PO TID. GDR not appropriate as this medication is being used for neuropathy. Please continue to monitor renal function and S/S of confusion. 2. Insomnia: melatonin 6 mg PO at bedtime and trazodone 100 mg PO at bedtime. Please see physician note regarding GDR. Please continue to monitor for insomnia and excessive drowsiness. 3. Depression: sertraline 50mg PO daily. Medication started 01/22/23. GDR not appropriate at this time as medication may not be at full affect. Please continue to monitor for suicidal ideation (black box warning), GI side effects, and weight gain. Medical chart and medication regimen reviewed. The following medication irregularities or issues were identified: 1. Miralax 17 gm PO daily and senna/docusate PO 1 tablet BID. Please consider changing senna/docusate and Miralax to PRN as resident has been refusing most doses in the past 2 weeks. Thanks. 2. Clopidogrel 75 mg PO daily. If resident is to remain here thru February please add a stop date of 03/24/23 to clopidogrel per instructions from Dr. Sepulveda in 02/01 nursing note. Thanks. 3. Levothyroxine 112 mcg PO daily. If resident is still here, please consider ordering a TSH 4 weeks (03/06/23) after dose increase on 02/06. Thanks. Date Date of Note:: 02/18/23 Documented by User: Dr. Bobby Murillo MD 02/24/23 07:00 TCU RX Drug Regimen Review Provider Comments Provider responsibility Provider Comments to Recommendations by Pharmacy: Agree
[2023-02-18] MEDS: NIFEdipine 90 MG Tablet PO (11:00)
[2023-02-18] MEDS: oxyCODONE 5 MG Tablet PO (21:42)
[2023-02-18] MEDS: Donepezil HCl 5 MG Tablet PO (21:43)
[2023-02-18] MEDS: Atorvastatin Calcium 80 MG Tablet PO (21:44)
[2023-02-18] MEDS: traZODone 100 MG Tablet PO (21:44)
[2023-02-18] MEDS: MELATONIN 3 MG TABLET 6 MG PO (21:44)
[2023-02-19] MEDS: Glycerin/Hypromellose/PEG400 15 ml Bottle 2 DRP EACH EYE ×2 (05:19→14:14)
[2023-02-19] MEDS: Arthritis Pain Compound 60 CLICK TUBE TOPICAL ×4 (05:19→21:51)
[2023-02-19] MEDS: Gabapentin 400 MG Capsule PO ×3 (05:19→21:49)
[2023-02-19] MEDS: Levothyroxine 112 MCG Tablet PO (05:20)
[2023-02-19 05:26] VITALS: PULSE 65; RESP 16; O2SAT 93
[2023-02-19] MEDS: Aspirin 81 MG TAB.CHEW PO (08:19)
[2023-02-19] MEDS: Captopril 12.5 MG Tablet 6.25 MG PO ×2 (08:20→21:52)
[2023-02-19] MEDS: Lidocaine 5% Patch 1 PATCH TOPICAL (08:21)
[2023-02-19] MEDS: Petrolatum 33% Tube 1 APPLIC TOPICAL ×2 (08:21→21:49)
[2023-02-19] MEDS: Ensure Plus High Protein 120 ML LIQUID PO ×3 (08:21→17:30)
[2023-02-19] MEDS: Nystatin Powder 15gm Bottle 1 APPLIC TOPICAL ×2 (08:22→21:50)
[2023-02-19] MEDS: NIFEdipine 90 MG Tablet PO (08:23)
[2023-02-19] MEDS: Clopidogrel Bisulfate 75 MG Tablet PO (08:23)
[2023-02-19] MEDS: Enoxaparin 40 MG/0.4 ML Syringe SC (08:24)
[2023-02-19] MEDS: Sertraline 50 MG Tablet PO (08:24)
[2023-02-19] MEDS: Senna/Docusate Sodium 1 Tablet 2 TABLET PO ×2 (08:24→21:51)
[2023-02-19 08:30] VITALS: BP 118/71; PULSE 69
[2023-02-19] MEDS: oxyCODONE 5 MG Tablet PO ×2 (14:14→21:48)
[2023-02-19] MEDS: Acetaminophen 500 MG Tablet 1000 MG PO (14:58)
[2023-02-19 16:00] VITALS: BP 139/81; PULSE 68; RESP 16; TEMP 36.3; O2SAT 93
[2023-02-19] MEDS: traMADol 50 MG Tablet PO (17:30)
[2023-02-19] MEDS: Atorvastatin Calcium 80 MG Tablet PO (21:51)
[2023-02-19] MEDS: MELATONIN 3 MG TABLET 6 MG PO (21:51)
[2023-02-19] MEDS: traZODone 100 MG Tablet PO (21:52)
[2023-02-19] MEDS: Donepezil HCl 5 MG Tablet PO (21:52)
[2023-02-20] MEDS: Acetaminophen 500 MG Tablet 1000 MG PO (05:28)
[2023-02-20] MEDS: Gabapentin 400 MG Capsule PO ×3 (05:28→21:37)
[2023-02-20] MEDS: Arthritis Pain Compound 60 CLICK TUBE TOPICAL ×4 (05:29→21:36)
[2023-02-20] MEDS: Glycerin/Hypromellose/PEG400 15 ml Bottle 2 DRP EACH EYE ×3 (05:29→21:36)
[2023-02-20] MEDS: Levothyroxine 112 MCG Tablet PO (05:29)
[2023-02-20] MEDS: Aspirin 81 MG TAB.CHEW PO (07:53)
[2023-02-20] MEDS: Captopril 12.5 MG Tablet 6.25 MG PO ×2 (07:53→21:38)
[2023-02-20] MEDS: Lidocaine 5% Patch 1 PATCH TOPICAL (07:57)
[2023-02-20] MEDS: Nystatin Powder 15gm Bottle 1 APPLIC TOPICAL ×2 (07:58→21:34)
[2023-02-20] MEDS: Enoxaparin 40 MG/0.4 ML Syringe SC (07:59)
[2023-02-20] MEDS: Petrolatum 33% Tube 1 APPLIC TOPICAL ×2 (08:00→21:35)
[2023-02-20] MEDS: Clopidogrel Bisulfate 75 MG Tablet PO (08:00)
[2023-02-20] MEDS: NIFEdipine 90 MG Tablet PO (08:02)
[2023-02-20] MEDS: Senna/Docusate Sodium 1 Tablet 2 TABLET PO (08:02)
[2023-02-20] MEDS: Sertraline 50 MG Tablet PO (08:02)
[2023-02-20 08:25] VITALS: BP 130/74; PULSE 64; RESP 17; TEMP 36.6; O2SAT 95
[2023-02-20] MEDS: Ensure Plus High Protein 120 ML LIQUID PO (11:54)
[2023-02-20 16:00] VITALS: BP 124/81; PULSE 64; RESP 20; TEMP 36.4; O2SAT 92
[2023-02-20] MEDS: MELATONIN 3 MG TABLET 6 MG PO (21:37)
[2023-02-20] MEDS: traZODone 100 MG Tablet PO (21:37)
[2023-02-20] MEDS: Donepezil HCl 5 MG Tablet PO (21:37)
[2023-02-20] MEDS: Atorvastatin Calcium 80 MG Tablet PO (21:37)
[2023-02-20] MEDS: oxyCODONE 5 MG Tablet PO (21:38)
[2023-02-21] MEDS: Arthritis Pain Compound 60 CLICK TUBE TOPICAL ×4 (05:57→21:24)
[2023-02-21] MEDS: Glycerin/Hypromellose/PEG400 15 ml Bottle 2 DRP EACH EYE ×3 (05:57→21:24)
[2023-02-21] MEDS: Levothyroxine 112 MCG Tablet PO (05:58)
[2023-02-21] MEDS: oxyCODONE 5 MG Tablet PO (06:00)
[2023-02-21] MEDS: Gabapentin 400 MG Capsule PO ×3 (06:00→21:22)
[2023-02-21] MEDS: Petrolatum 33% Tube 1 APPLIC TOPICAL ×2 (07:58→21:25)
[2023-02-21] MEDS: Nystatin Powder 15gm Bottle 1 APPLIC TOPICAL ×2 (07:59→21:25)
[2023-02-21] MEDS: Enoxaparin 40 MG/0.4 ML Syringe SC (07:59)
[2023-02-21 08:00] VITALS: BP 134/82; PULSE 76; RESP 16; TEMP 36.6; O2SAT 96
[2023-02-21] MEDS: Lidocaine 5% Patch 1 PATCH TOPICAL (08:00)
[2023-02-21] MEDS: Sertraline 50 MG Tablet PO (08:00)
[2023-02-21] MEDS: Captopril 12.5 MG Tablet 6.25 MG PO ×2 (08:00→21:26)
[2023-02-21] MEDS: Clopidogrel Bisulfate 75 MG Tablet PO (08:01)
[2023-02-21] MEDS: NIFEdipine 90 MG Tablet PO (08:01)
[2023-02-21] MEDS: Aspirin 81 MG TAB.CHEW PO (08:01)
[2023-02-21] MEDS: Senna/Docusate Sodium 1 Tablet 2 TABLET PO (08:02)
[2023-02-21 14:14] VITALS: BP 123/81; PULSE 74; RESP 16; TEMP 36.8; O2SAT 92
[2023-02-21 20:30] VITALS: BP 133/87; PULSE 74
[2023-02-21] MEDS: Acetaminophen 500 MG Tablet 1000 MG PO (21:23)
[2023-02-21] MEDS: MELATONIN 3 MG TABLET 6 MG PO (21:23)
[2023-02-21] MEDS: traZODone 100 MG Tablet PO (21:24)
[2023-02-21] MEDS: Donepezil HCl 5 MG Tablet PO (21:24)
[2023-02-21] MEDS: Atorvastatin Calcium 80 MG Tablet PO (21:24)
[2023-02-21] MEDS: Menthol/Lanolin/Calamine/Znox 113 GM Tube 1 APPLIC TOPICAL (21:37)
[2023-02-22] MEDS: Levothyroxine 112 MCG Tablet PO (06:23)
[2023-02-22] MEDS: Arthritis Pain Compound 60 CLICK TUBE TOPICAL ×4 (06:24→21:54)
[2023-02-22] MEDS: Gabapentin 400 MG Capsule PO ×3 (06:24→21:55)
[2023-02-22] MEDS: Glycerin/Hypromellose/PEG400 15 ml Bottle 2 DRP EACH EYE ×3 (06:24→21:54)
[2023-02-22] MEDS: Captopril 12.5 MG Tablet 6.25 MG PO ×2 (08:03→21:54)
[2023-02-22] MEDS: Clopidogrel Bisulfate 75 MG Tablet PO (08:03)
[2023-02-22] MEDS: Aspirin 81 MG TAB.CHEW PO (08:03)
[2023-02-22] MEDS: Sertraline 50 MG Tablet PO (08:03)
[2023-02-22] MEDS: NIFEdipine 90 MG Tablet PO (08:03)
[2023-02-22] MEDS: Lidocaine 5% Patch 1 PATCH TOPICAL (08:04)
[2023-02-22] MEDS: Menthol/Lanolin/Calamine/Znox 113 GM Tube 1 APPLIC TOPICAL ×2 (08:04→21:54)
[2023-02-22] MEDS: Nystatin Powder 15gm Bottle 1 APPLIC TOPICAL ×2 (08:05→21:55)
[2023-02-22] MEDS: Enoxaparin 40 MG/0.4 ML Syringe SC (08:06)
[2023-02-22] MEDS: Petrolatum 33% Tube 1 APPLIC TOPICAL ×2 (08:12→21:55)
[2023-02-22 08:14] VITALS: BP 138/88; PULSE 56
[2023-02-22 11:00] VITALS: PULSE 58; RESP 18; O2SAT 96
[2023-02-22 13:34] VITALS: BP 143/89; PULSE 62; RESP 18; TEMP 36; O2SAT 99
[2023-02-22] MEDS: traMADol 50 MG Tablet PO (18:18)
[2023-02-22] MEDS: Donepezil HCl 5 MG Tablet PO (21:54)
[2023-02-22] MEDS: Atorvastatin Calcium 80 MG Tablet PO (21:55)
[2023-02-22] MEDS: traZODone 100 MG Tablet PO (21:55)
[2023-02-22] MEDS: MELATONIN 3 MG TABLET 6 MG PO (21:55)
[2023-02-23] MEDS: Gabapentin 400 MG Capsule PO ×3 (06:12→21:23)
[2023-02-23] MEDS: Glycerin/Hypromellose/PEG400 15 ml Bottle 2 DRP EACH EYE ×3 (06:12→21:25)
[2023-02-23] MEDS: Arthritis Pain Compound 60 CLICK TUBE TOPICAL ×4 (06:12→21:24)
[2023-02-23] MEDS: Levothyroxine 112 MCG Tablet PO (06:12)
[2023-02-23 09:12] VITALS: BMI 36.3
[2023-02-23] MEDS: Clopidogrel Bisulfate 75 MG Tablet PO (09:30)
[2023-02-23] MEDS: Enoxaparin 40 MG/0.4 ML Syringe SC (09:30)
[2023-02-23] MEDS: Captopril 12.5 MG Tablet 6.25 MG PO ×2 (09:30→21:23)
[2023-02-23] MEDS: Aspirin 81 MG TAB.CHEW PO (09:30)
[2023-02-23] MEDS: Menthol/Lanolin/Calamine/Znox 113 GM Tube 1 APPLIC TOPICAL ×2 (09:31→21:25)
[2023-02-23] MEDS: Lidocaine 5% Patch 1 PATCH TOPICAL (09:31)
[2023-02-23] MEDS: Petrolatum 33% Tube 1 APPLIC TOPICAL ×2 (09:32→21:24)
[2023-02-23] MEDS: Nystatin Powder 15gm Bottle 1 APPLIC TOPICAL ×2 (09:38→21:25)
[2023-02-23] MEDS: Sertraline 50 MG Tablet PO (09:39)
[2023-02-23] MEDS: NIFEdipine 90 MG Tablet PO (10:07)
[2023-02-23 14:26] VITALS: BP 146/82; PULSE 61; RESP 16; TEMP 36.3; O2SAT 95
--- NOTE | 2023-02-23 16:48 | CASEMGMT ---
Addendum entered by Marilou Goodwin 02/24/23 15:59: PASRR completed and sent with DC paperwork to [facility] via [employer]. [facility] transport scheduled for 1100 through [facility]. completed expert eval. Copy placed on chart and to be given to brother. [facility] Original Note: Social Work Insurance issued LCD 02/24, [place] 02/25. P2P completed and won. NRD 02/26, but per P2P, recommended setting DC date as pt is approaching day 44 stay. IDT agreed and set DC for 02/27. ROWAN updated [facility] via [facility] and pt can admit 02/27. ROWAN phoned brother to update. Brother agreeable with plan. ROWAN requested brother pear picker guardian application from this worker at next visit, prior to DC, to start that process. to complete expert eval and this worker to [facility]. Brother agreeable. ROWAN to schedule transport and complete PASRR for DC 02/27. Plan: DC 02/27 to [facility], intermediate, [facility] pending, part B therapies Marilou Goodwin, ÁNGELA HIGGINBOTHAMW
--- NOTE | 2023-02-23 16:50 | RAD_ITS ---
INDICATION: pain EXAMINATION/TECHNIQUE: X-RAY - RIGHT XR Shoulder Min 2 Views COMPARISON: No previous relevant examinations for comparison. FINDINGS: SOFT TISSUES: No soft tissue swelling or gas. No radiopaque foreign body. BONES/JOINTS: 1. No acute fracture or subluxation.. Normal alignment. Preservation of the joint space.. No sclerotic or destructive changes observed. 2. There is normal glenohumeral motion. There is normal alignment of the acromioclavicular joint. 3. The clavicle, acromion, scapula and RIGHT rib cage have normal appearance. RAD/Shoulder min 2 Views IMPRESSION: 1. No fracture malalignment or focal bony or joint space abnormality involving the shoulder.. Electronically Signed: Edgardo Fajardo MD at 17:13 EST ,
[2023-02-23 21:00] VITALS: O2SAT 95
[2023-02-23] MEDS: MELATONIN 3 MG TABLET 6 MG PO (21:23)
[2023-02-23] MEDS: Donepezil HCl 5 MG Tablet PO (21:24)
[2023-02-23] MEDS: Atorvastatin Calcium 80 MG Tablet PO (21:25)
[2023-02-23] MEDS: traZODone 100 MG Tablet PO (21:25)
[2023-02-23] MEDS: oxyCODONE 5 MG Tablet PO (21:28)
[2023-02-24] MEDS: Gabapentin 400 MG Capsule PO ×3 (05:00→22:07)
[2023-02-24] MEDS: Glycerin/Hypromellose/PEG400 15 ml Bottle 2 DRP EACH EYE ×3 (05:01→22:05)
[2023-02-24] MEDS: Levothyroxine 112 MCG Tablet PO (05:01)
[2023-02-24] MEDS: Arthritis Pain Compound 60 CLICK TUBE TOPICAL ×4 (05:01→22:04)
[2023-02-24 05:41] VITALS: O2SAT 94
--- NOTE | 2023-02-24 07:28 | DS.PCM_ITS ---
Providers Date of Admission: 01/13/23 Primary Care Physician: Dr. María Elena Eubanks DO Reason For Visit: STROKE Diagnosis Discharge Diagnosis (1) Debility: Status: Acute Code(s): R53.81 - Other malaise (2) Left middle cerebral artery stroke: Status: Acute Code(s): I63.512 - Cerebral infarction due to unspecified occlusion or stenosis of left middle cerebral artery (3) Right hemiplegia: Status: Acute Code(s): G81.91 - Hemiplegia, unspecified affecting right dominant side (4) Expressive aphasia: Status: Acute Code(s): R47.01 - Aphasia (5) Dysarthria: Status: Acute Code(s): R47.1 - Dysarthria and anarthria (6) Hypertension: Status: Chronic Code(s): I10 - Essential (primary) hypertension (7) Hypothyroidism: Status: Acute Code(s): E03.9 - Hypothyroidism, unspecified (8) Hyperlipidemia: Status: Acute Code(s): E78.5 - Hyperlipidemia, unspecified (9) Osteoarthritis: Status: Acute Code(s): M19.90 - Unspecified osteoarthritis, unspecified site (10) Coronary artery disease: Status: Acute Code(s): I25.10 - Atherosclerotic heart disease of [place] coronary artery without angina pectoris (11) Tobacco abuse: Status: Acute Code(s): Z72.0 - Tobacco use Plan 57 year old male with below past medical history history hospitalized for left MCA stroke, right hemiplegia, expressive aphasia, dysarthria, no invasive intervention recommended, admitted to TCU with debility, here for r ehabilitation, strengthening, prior to disposition determination. * Debility - PT/OT/ST. * Pain - Tylenol 1000mg q6 prn pain (1-3), Tramadol 50mg q6 prn pain (4-5), Oxycodone 5mg q4h prn pain (6-10), Lidoderm 1 patch topical daily, Arthritis pain compound 2 clicks 4x/day. * Bowel - Miralax 17gm daily, Senna/colace 2 tablet bid, Dulcolax 10mg pr daily prn, Magnesium citrate 300ml daily prn. * Adult immunization - Administer pneumonia vaccine, covid vaccine, flu vaccine as appropriate. * DVT prophylaxis - Lovenox 40mg sc daily. * Left MCA stroke - Aspirin 81mg daily, Plavix 75mg daily. * Hyperlipidemia - Atorvastatin 80mg qhs. * Hypertension - Captopril 6.25mg bid, Nifedipine 90mg daily. * Vascular dementia - Donepezil 5mg qhs. * Neuropathic pain - Gabapentin 400mg tid. * Hypothyroidism - Levothyroxine 112mcg daily. * Insomnia - Melatonin 6mg qhs, Trazodone 100mg qhs, stable chronic custodial use, GDR not recommended. * Dry eyes - Artificial tears 2 gtt ou tid. * Nutrition - Ensure Plus 120ml tidcm, Eucerin topical bid. * Skin irritation - Calmoseptine topical bid. * Tinea Corporis - Nystatin powder topical bid. * Depression - Sertraline 50mg daily. Medications at Discharge Home Medications aspirin 81 mg chewable tablet 81 mg PO BREAKFAST heart #60 tabs 05/02/21 atorvastatin 80 mg tablet 80 mg PO QHS cholesterol #30 tabs 11/28/22 captopril 12.5 mg tablet 6.25 mg PO BID BP 01/13/23 clopidogrel 75 mg tablet 75 mg PO QHS antiplatelet 01/13/23 donepezil 5 mg tablet 5 mg PO QHS mind 01/13/23 gabapentin 400 mg capsule 400 mg PO TID pain 01/13/23 lidocaine 4 % topical patch 1 patch topical DAILY pain 01/13/23 melatonin 3 mg capsule 6 mg PO QHS sleep 01/13/23 nifedipine 90 mg tablet,extended release 90 mg PO DAILY heart 01/13/23 trazodone 100 mg tablet 100 mg PO QHS sleep 01/13/23 Petrolatum 33% [Eucerin Eqivalent] 1 applic topical BID ##0 02/24/23 acetaminophen 500 mg tablet 1,000 mg (2 x 500 mg) PO Q6H PRN PRN Pain Score 1-3 #0 tabs 02/24/23 levothyroxine 112 mcg tablet 112 mcg PO DAILY@0600 #0 tabs 02/24/23 menthol 0.44 %-zinc oxide 20.6 % topical ointment (Calmoseptine) 1 applic topical BID #0 grams 02/24/23 nystatin 100,000 unit/gram topical powder (Nyamyc) 1 applic topical BID #0 grams 02/24/23 oxycodone 5 mg tablet 5 mg PO Q4H PRN PRN Pain Score 6-10 3 days #18 tabs 02/24/23 peg [id number] 1 %-0.2 %-0.2 % eye drops (Artificial Tears ([id number])) 2 drp EACH EYE TID #0 mL 02/24/23 polyethylene glycol 3350 17 gram oral powder packet 17 g PO DAILY #0 ea 02/24/23 sertraline 50 mg tablet 50 mg PO DAILY #0 tabs 02/24/23 tramadol 50 mg tablet 50 mg PO Q6H PRN PRN Pain Score 4-5 3 days #12 tabs 02/24/23 Hospital Course Operations None Procedures None Summary of Care Provided Minutes Spent on Discharge: 35 Hospital Course: 57 year old male with below past medical history history hospitalized for left MCA stroke, right hemiplegia, expressive aphasia, dysarthria, no invasive intervention recommended, admitted to TCU with debility, here for rehabilitation, strengthening, prior to disposition determination. Discharge to [facility] 02/27/2023, intermediate, UMM pending, part B therapies . Physical Exam Const alert General Appearance: cooperative HEENT normocephalic Eyes PERRL and EOMs intact bilaterally Neck supple, no JVD and no carotid bruits Resp normal respiratory effort, normal air movement and clear to auscultation bilaterally Cardio regular rate and regular rhythm GI normal to inspection, nondistended, normoactive bowel sounds, non-tender and non-distended Extremity normal capillary refill General Extremity: Negative for edema Skin no rashes or lesions noted General Skin Exam: no breakdown Neuro Neuro Narrative: Right hemiparesis. Receptive/Expressive aphasia. Dysarthria. Speech: speech abnormal Psych affect normal Appearance: appropriate Medical Records Data Medical Nutrition Assessment Dietitian: Malnutrition Criteria Met Start: 01/27/23 13:01 Freq: Status: Active Protocol: Document 01/27/23 13:01 [facility] (Rec: 01/27/23 13:01 [facility] Desktop) Nutrition Malnutrition Evidence of Malnutrition Exists Yes Malnutrition (severe): Acute Illness/Injury Evidenced By Suboptimal Energy Intake ( Severe),Weight Loss (Severe) Clinical Problem Acute Disease or Injury Related Malnutrition Etiology related to inadequate energy intake Signs/Symptoms as evidenced by <50% of est nutritional needs and 2.3% unintended wt loss x 1 wk Status Active Problem Unintended Weight Loss Status Inactive Problem Recommendation Dietitian Recommendations/Changes Will liberalize diet to regular d/t signs and symptoms of malnutrition Continue 4 oz ensure plus high protein 3x/day w/ medpass to help prevent additional wt loss if consumed. Rec appetite stimulant to help encourage increased po intake at meals Weight / BMI Weight Weight: 105.233 kg Body Mass Index (BMI) 36.3 ABG / Lab / Microbiology Data 02/18/23 05:17 02/18/23 05:17 Microbiology: Microbiology 02/23/23 06:08 Nasal Secretion SARS-CoV-2 Antigen (Rapid) - Final 02/17/23 12:20 Nasal Secretion SARS-CoV-2 Antigen (Rapid) - Final 02/01/23 04:40 Nasal Secretion SARS-CoV-2 Antigen (Rapid) - Final 01/28/23 05:16 Nasal Secretion SARS-CoV-2 Antigen (Rapid) - Final 01/25/23 01:10 Nasal Secretion SARS-CoV-2 Antigen (Rapid) - Final 01/21/23 05:50 Nasal Secretion SARS-CoV-2 Antigen (Rapid) - Final 01/18/23 06:00 Nasal Secretion SARS-CoV-2 Antigen (Rapid) - Final Radiography Diagnostic Testing: Radiology Impression Shoulder X-Ray 02/23/23 16:50 IMPRESSION: 1. No fracture malalignment or focal bony or joint space abnormality involving the shoulder.. Electronically Signed: Edgardo Fajardo MD at 17:13 EST Reading Location ID and State: [address] [place] [address] Tel , Service support , D/C Instructions Discharge Diet: No restrictions Discharge Activity: Return to Normal Activity, May Shower and Use Walker Weight Bearing Status: Weight bearing as tolerated Call your doctor if you observe: Fever of 101 or Higher, Inability to urinate, Inability to have a bowel movement, Shortness of breath, Dizziness, Fainting spells, Swelling in the ankles, Chest pain and Uncontrolled pain Additional Instructions: Discharge to [facility] 02/27/2023, intermediate, UMM pending, part B therapies. Please Follow Up With: Salomón Sepulveda When: As scheduled. Meaningful Use Info Meaningful Use Diagnoses (Choose all that apply): Ischemic CVA CVA Therapy Assessed for PT,OT and/or ST?: Yes Ischemic Stroke Antithrombotic order at d/c?: No Reason antithrombotic not ordered: Treatment not Indicated Dx of Atrial fib/flutter?: No Statins at discharge?: Yes Primary Dx Acute Ischemic CVA?: Yes Discharge Plan Admission Admit Date/Time: 01/13/23 12:04 Primary Reason for Your Visit: Debility. Attending Provider: Bobby Murillo Chi Primary Care Provider: María Elena Eubanks Instructions Additional Instructions / Restrictions: Discharge to [facility] 02/27/2023, intermediate, UMM pending, part B therapies. Discharge Orders/Prescriptions Prescriptions: New polyethylene glycol 3350 17 gram Powder In Packet 17 g PO DAILY Qty: 0 0RF acetaminophen 500 mg Tablet 1,000 mg PO Q6H PRN PRN (Reason: Pain Score 1-3) Qty: 0 0RF levothyroxine 112 mcg Tablet 112 mcg PO DAILY@0600 Qty: 0 0RF Artificial Tears([id number]-ixmr) 1-0.2-0.2 % Drops 2 drp EACH EYE TID Qty: 0 0RF menthol-zinc oxide [Calmoseptine] 0.44-20.6 % Ointment 1 applic topical BID Qty: 0 0RF Protocol: *Topical Application Instructions APPLICATION INSTRUCTIONS: RACHEL BUTTOCKS tramadol 50 mg Tablet 50 mg PO Q6H PRN PRN (Reason: Pain Score 4-5) 3 Days Qty: 12 0RF nystatin [Nyamyc] 100,000 unit/gram Powder 1 applic topical BID Qty: 0 0RF Protocol: *Topical Application Instructions APPLICATION INSTRUCTIONS: Apply to right underarm redness sertraline 50 mg Tablet 50 mg PO DAILY Qty: 0 0RF oxycodone 5 mg Tablet 5 mg PO Q4H PRN PRN (Reason: Pain Score 6-10) 3 Days Qty: 18 0RF Petrolatum 33% [Eucerin Eqivalent] 1 applic topical BID Qty: 0 0RF Continued aspirin 81 mg Tablet,Chewable 81 mg PO BREAKFAST Qty: 60 0RF atorvastatin 80 mg Tablet 80 mg PO QHS Qty: 30 0RF donepezil 5 mg tablet 5 mg PO QHS gabapentin 400 mg capsule 400 mg PO TID lidocaine 4 % adhesive patch,medicated 1 patch topical DAILY Rx Instructions: may leave on for up to 12 hrs melatonin 3 mg capsule 6 mg PO QHS nifedipine 90 mg tablet extended release 90 mg PO DAILY trazodone 100 mg tablet 100 mg PO QHS captopril 12.5 mg tablet 6.25 mg PO BID clopidogrel 75 mg tablet 75 mg PO QHS Discontinued lisinopril 20 mg tablet 20 mg PO BID Patient Comments: TAKE 1 TABLET BY MOUTH TWICE A DAY carbamazepine 200 mg tablet extended release 12 hr 100 mg PO BID levothyroxine 100 mcg tablet 100 mcg PO DAILY Patient Comments: TAKE 1 TABLET BY MOUTH EVERY DAY DIRECTED hydrochlorothiazide 25 mg Tablet 25 mg PO DAILY Qty: 30 0RF metoprolol tartrate 25 mg Tablet 25 mg PO BID Qty: 60 0RF hydralazine 25 mg tablet 25 mg PO BID meloxicam 7.5 mg tablet 7.5 mg PO DAILY PRN (Reason: pain) Patient Comments: 1 (ONE) TABLET TWICE DAILY NEEDED FOR PAIN acetaminophen 325 mg tablet 650 mg PO Q4H PRN (Reason: pain (scale score 1-3)) diclofenac sodium 1 % gel 2 g topical 4X/DAY enoxaparin 40 mg/0.4 mL syringe 40 mg subcut DAILY erythromycin 5 mg/gram (0.5 %) ointment 1 applic EACH EYE Q8H polyethylene glycol 3350 [Miralax] 17 gram/dose powder 17 g PO DAILY PRN (Reason: bowels) polyvinyl alcohol-povidon(PF) 1.4-0.6 % dropperette 2 drp EACH EYE TID PRN (Reason: dry eyes) sennosides [Sen-O-Tab] 8.6 mg tablet 8.6 mg PO DAILY PRN (Reason: bowels) Referrals / Follow Up: María Elena Eubanks DO [Primary Care Provider] - Salomón Sepulveda MD [Med Staff - Contracted] - 05/03/23 10:00 am (3 month follow up. Will do a telehealth call as long as he's in the [facility]. Link will be sent as a text message, so follow the link to connect) Disposition Disposition (needs filled in before D/C Order can be placed): NonSkilled NH/Intermed Care
--- NOTE | 2023-02-24 07:35 | TREXTCAR_ITS ---
Diet Diet Order/Speech Therapy: 01/27/23 13:02 Diet: Regular - General Is pt able to select menu?: No Routine Orders/Code Status Code Status: Full Code Wound(s) Left groin- blister: Wound Type: Blister Therapies Weight Bearing: Weight bearing as tolerated Extremity Affected:: Bilateral Lower Physical Therapy: Eval and Treat Occupational Therapy: Eval and Treat Speech Therapy: Eval and Treat Problem/Diagnosis (1) Debility: Status: Acute Code(s): R53.81 - Other malaise (2) Left middle cerebral artery stroke: Status: Acute Code(s): I63.512 - Cerebral infarction due to unspecified occlusion or stenosis of left middle cerebral artery (3) Right hemiplegia: Status: Acute Code(s): G81.91 - Hemiplegia, unspecified affecting right dominant side (4) Expressive aphasia: Status: Acute Code(s): R47.01 - Aphasia (5) Dysarthria: Status: Acute Code(s): R47.1 - Dysarthria and anarthria (6) Hypertension: Status: Chronic Code(s): I10 - Essential (primary) hypertension (7) Hypothyroidism: Status: Acute Code(s): E03.9 - Hypothyroidism, unspecified (8) Hyperlipidemia: Status: Acute Code(s): E78.5 - Hyperlipidemia, unspecified (9) Osteoarthritis: Status: Acute Code(s): M19.90 - Unspecified osteoarthritis, unspecified site (10) Coronary artery disease: Status: Acute Code(s): I25.10 - Atherosclerotic heart disease of [place] coronary artery without angina pectoris (11) Tobacco abuse: Status: Acute Code(s): Z72.0 - Tobacco use Plan 57 year old male with below past medical history history hospitalized for left MCA stroke, right hemiplegia, expressive aphasia, dysarthria, no invasive intervention recommended, admitted to TCU with debility, here for rehabilitation, strengthening, prior to disposition determination. * Debility - PT/OT/ST. * Pain - Tylenol 1000mg q6 prn pain (1-3), Tramadol 50mg q6 prn pain (4-5), Oxycodone 5mg q4h prn pain (6-10), Lidoderm 1 patch topical daily, Arthritis pain compound 2 clicks 4x/day. * Bowel - Miralax 17gm daily, Senna/colace 2 tablet bid, Dulcolax 10mg pr daily prn, Magnesium citrate 300ml daily prn. * Adult immunization - Administer pneumonia vaccine, covid vaccine, flu vaccine as appropriate. * DVT prophylaxis - Lovenox 40mg sc daily. * Left MCA stroke - Aspirin 81mg daily, Plavix 75mg daily. * Hyperlipidemia - Atorvastatin 80mg qhs. * Hypertension - Captopril 6.25mg bid, Nifedipine 90mg daily. * Vascular dementia - Donepezil 5mg qhs. * Neuropathic pain - Gabapentin 400mg tid. * Hypothyroidism - Levothyroxine 112mcg daily. * Insomnia - Melatonin 6mg qhs, Trazodone 100mg qhs, stable chronic [facility] use, GDR not recommended. * Dry eyes - Artificial tears 2 gtt ou tid. * Nutrition - Ensure Plus 120ml tidcm, Eucerin topical bid. * Skin irritation - Calmoseptine topical bid. * Tinea Corporis - Nystatin powder topical bid. * Depression - Sertraline 50mg daily. Allergies/Procedures Done in Hospital Allergies Sulfa (Sulfonamide Antibiotics) Allergy (Verified 12/18/22 15:49) Other Procedures: None Type of Care/Length of Stay Estimated LOS: More Than 30 Days Type of Care Needed: Intermediate Rehab Potential: Good Prognosis: Good Additional Orders/Day of Discharge Additional Orders: part B therapies Day of Discharge: 02/27/23 Dietary and Speech Recommendations Dietitian Recommendations/Changes: Will continue liberalized diet of regular Continue 4 oz ensure plus high protein 3x/day w/ medpass - consider d/c at time of follow up if wt gain continues Speech Linguistic Eval Summary: Orientation - Patient presents w/ severe deficit s in orientation. D/t mixed receptive and expressive aphasia - patient unable to independently recall name. W/ initial phonemic cueing - patient able to state his full name (Andrea Velazquez). Unable to recall despite max verbal prompting. WILDLIFE CONTROL OPERATOR wrote down 2 choices for month and year of w/ patient choosing the correct month, incorrect year. Given choice array of 2 for current month and year - 0% success. Auditory comprehension - Patient able to follow 1 step directions auditorily presented w/ 20% acc. Patient able to answer Y/N's w/ 50% acc. Severe receptive aphasia. Provided patient w/ written cueing which did not improve comprehension. Automatic speech tasks - Difficulty w/ comprehension of task d/t receptive aphasia. Patient able to count 1-20 w/ WILDLIFE CONTROL OPERATOR initiating the task (1...2..). Patient able to recall 5/7 MJ and 11/12 EZIO w/ again WILDLIFE CONTROL OPERATOR initiating task for comprehension. Verbal Expression - 0% success naming common items when presented in room and via iPad. Severe expressive aphasia further compromised by dysarthria characterized by anomia resulting in jargon/neologisms, paraphasias and severely impaired confrontation, responsive and generative naming. Little to no i nformation / content in spontaneous speech w/ tangential/irrelevant commentary. Cognition - Severe cognitive impairment s/p CVA. Follow Up Care Please Follow Up With: Salomón Sepulveda When: 3 month follow up When: after d/c from TCU Discharge Plan Admission Admit Date/Time: 01/13/23 12:04 Primary Reason for Your Visit: Debility. Attending Provider: Bobby Murillo Chi Primary Care Provider: María Elena Eubanks Instructions Additional Instructions / Restrictions: Discharge to [facility] 02/27/2023, intermediate, UMM pending, part B therapies. Discharge Orders/Prescriptions Prescriptions: New polyethylene glycol 3350 17 gram Powder In Packet 17 g PO DAILY Qty: 0 0RF acetaminophen 500 mg Tablet 1,000 mg PO Q6H PRN PRN (Reason: Pain Score 1-3) Qty: 0 0RF levothyroxine 112 mcg Tablet 112 mcg PO DAILY@0600 Qty: 0 0RF Artificial Tears(db-kbla-hogw) 1-0.2-0.2 % Drops 2 drp EACH EYE TID Qty: 0 0RF menthol-zinc oxide [Calmoseptine] 0.44-20.6 % Ointment 1 applic topical BID Qty: 0 0RF Protocol: *Topical Application Instructions APPLICATION INSTRUCTIONS: RACHEL BUTTOCKS tramadol 50 mg Tablet 50 mg PO Q6H PRN PRN (Reason: Pain Score 4-5) 3 Days Qty: 12 0RF nystatin [Nyamyc] 100,000 unit/gram Powder 1 applic topical BID Qty: 0 0RF Protocol: *Topical Application Instructions APPLICATION INSTRUCTIONS: Apply to right underarm redness sertraline 50 mg Tablet 50 mg PO DAILY Qty: 0 0RF oxycodone 5 mg Tablet 5 mg PO Q4H PRN PRN (Reason: Pain Score 6-10) 3 Days Qty: 18 0RF Petrolatum 33% [Eucerin Eqivalent] 1 applic topical BID Qty: 0 0RF Continued aspirin 81 mg Tablet,Chewable 81 mg PO BREAKFAST Qty: 60 0RF atorvastatin 80 mg Tablet 80 mg PO QHS Qty: 30 0RF donepezil 5 mg tablet 5 mg PO QHS gabapentin 400 mg capsule 400 mg PO TID lidocaine 4 % adhesive patch,medicated 1 patch topical DAILY Rx Instructions: may leave on for up to 12 hrs melatonin 3 mg capsule 6 mg PO QHS nifedipine 90 mg tablet extended release 90 mg PO DAILY trazodone 100 mg tablet 100 mg PO QHS captopril 12.5 mg tablet 6.25 mg PO BID clopidogrel 75 mg tablet 75 mg PO QHS Discontinued lisinopril 20 mg tablet 20 mg PO BID Patient Comments: TAKE 1 TABLET BY MOUTH TWICE A DAY carbamazepine 200 mg tablet extended release 12 hr 100 mg PO BID levothyroxine 100 mcg tablet 100 mcg PO DAILY Patient Comments: TAKE 1 TABLET BY MOUTH EVERY DAY DIRECTED hydrochlorothiazide 25 mg Tablet 25 mg PO DAILY Qty: 30 0RF metoprolol tartrate 25 mg Tablet 25 mg PO BID Qty: 60 0RF hydralazine 25 mg tablet 25 mg PO BID meloxicam 7.5 mg tablet 7.5 mg PO DAILY PRN (Reason: pain) Patient Comments: 1 (ONE) TABLET TWICE DAILY NEEDED FOR PAIN acetaminophen 325 mg tablet 650 mg PO Q4H PRN (Reason: pain (scale score 1-3)) diclofenac sodium 1 % gel 2 g topical 4X/DAY enoxaparin 40 mg/0.4 mL syringe 40 mg subcut DAILY erythromycin 5 mg/gram (0.5 %) ointment 1 applic EACH EYE Q8H polyethylene glycol 3350 [Miralax] 17 gram/dose powder 17 g PO DAILY PRN (Reason: bowels) polyvinyl alcohol-povidon(PF) 1.4-0.6 % dropperette 2 drp EACH EYE TID PRN (Reason: dry eyes) sennosides [Sen-O-Tab] 8.6 mg tablet 8.6 mg PO DAILY PRN (Reason: bowels) Referrals / Follow Up: María Elena Eubanks, [Primary Care Provider] - Salomón Sepulveda MD [Med Staff - Contracted] - 05/03/23 10:00 am (3 month follow up. Will do a telehealth call as long as he's in the state [facility]. Link will be sent as a text message, so follow the link to connect) Disposition Disposition (needs filled in before D/C Order can be placed): NonSkilled NH/Intermed Care
[2023-02-24] MEDS: Aspirin 81 MG TAB.CHEW PO (08:13)
[2023-02-24] MEDS: Menthol/Lanolin/Calamine/Znox 113 GM Tube 1 APPLIC TOPICAL ×2 (11:08→22:05)
[2023-02-24] MEDS: Petrolatum 33% Tube 1 APPLIC TOPICAL ×2 (11:08→22:04)
[2023-02-24] MEDS: Enoxaparin 40 MG/0.4 ML Syringe SC (11:09)
[2023-02-24] MEDS: Lidocaine 5% Patch 1 PATCH TOPICAL (11:09)
[2023-02-24] MEDS: Polyethylene Glycol 3350 17 GM PACKET PO (11:11)
[2023-02-24] MEDS: Captopril 12.5 MG Tablet 6.25 MG PO ×2 (11:11→22:07)
[2023-02-24] MEDS: Nystatin Powder 15gm Bottle 1 APPLIC TOPICAL ×2 (11:11→22:04)
[2023-02-24] MEDS: Clopidogrel Bisulfate 75 MG Tablet PO (11:12)
[2023-02-24] MEDS: Sertraline 50 MG Tablet PO (11:12)
[2023-02-24] MEDS: NIFEdipine 90 MG Tablet PO (11:12)
[2023-02-24 15:13] VITALS: BP 122/79; PULSE 71; RESP 16; TEMP 36.4; O2SAT 92
[2023-02-24] MEDS: Donepezil HCl 5 MG Tablet PO (22:07)
[2023-02-24] MEDS: traMADol 50 MG Tablet PO (22:07)
[2023-02-24] MEDS: MELATONIN 3 MG TABLET 6 MG PO (22:07)
[2023-02-24] MEDS: Atorvastatin Calcium 80 MG Tablet PO (22:07)
[2023-02-24] MEDS: traZODone 100 MG Tablet PO (22:07)
[2023-02-25 01:10] VITALS: BP 124/79; PULSE 89
[2023-02-25] MEDS: Gabapentin 400 MG Capsule PO ×3 (05:53→22:04)
[2023-02-25] MEDS: Arthritis Pain Compound 60 CLICK TUBE TOPICAL ×4 (05:53→21:55)
[2023-02-25] MEDS: Levothyroxine 112 MCG Tablet PO (05:53)
[2023-02-25] MEDS: Glycerin/Hypromellose/PEG400 15 ml Bottle 2 DRP EACH EYE ×3 (05:53→21:56)
[2023-02-25] MEDS: Lidocaine 5% Patch 1 PATCH TOPICAL (09:19)
[2023-02-25] MEDS: Sertraline 50 MG Tablet PO (09:20)
[2023-02-25] MEDS: Aspirin 81 MG TAB.CHEW PO (09:20)
[2023-02-25] MEDS: Clopidogrel Bisulfate 75 MG Tablet PO (09:20)
[2023-02-25] MEDS: Enoxaparin 40 MG/0.4 ML Syringe SC (09:21)
[2023-02-25] MEDS: Captopril 12.5 MG Tablet 6.25 MG PO ×2 (09:21→21:57)
[2023-02-25] MEDS: NIFEdipine 90 MG Tablet PO (09:21)
[2023-02-25 09:25] VITALS: BP 120/78; PULSE 82; RESP 16; O2SAT 94
[2023-02-25] MEDS: Petrolatum 33% Tube 1 APPLIC TOPICAL ×2 (09:27→21:55)
[2023-02-25] MEDS: Menthol/Lanolin/Calamine/Znox 113 GM Tube 1 APPLIC TOPICAL ×2 (09:27→21:56)
[2023-02-25] MEDS: Nystatin Powder 15gm Bottle 1 APPLIC TOPICAL ×2 (09:28→21:59)
[2023-02-25 10:00] VITALS: PULSE 86
[2023-02-25 13:25] VITALS: TEMP 36.1
--- NOTE | 2023-02-25 14:57 | MDS.RN ---
MDS pain interview completed.
--- NOTE | 2023-02-25 16:46 | CASEMGMT ---
Social Work BIMS (05/06) and PHQ-2 () completed for MDS assessment. Marilou Goodwin MSW [employer]
[2023-02-25] MEDS: Donepezil HCl 5 MG Tablet PO (21:56)
[2023-02-25] MEDS: traZODone 100 MG Tablet PO (21:57)
[2023-02-25] MEDS: Atorvastatin Calcium 80 MG Tablet PO (21:58)
[2023-02-25] MEDS: MELATONIN 3 MG TABLET 6 MG PO (21:58)
[2023-02-25] MEDS: traMADol 50 MG Tablet PO (22:03)
[2023-02-26] MEDS: Gabapentin 400 MG Capsule PO ×3 (06:06→22:17)
[2023-02-26] MEDS: Glycerin/Hypromellose/PEG400 15 ml Bottle 2 DRP EACH EYE ×2 (06:06→13:36)
[2023-02-26] MEDS: Levothyroxine 112 MCG Tablet PO (06:06)
[2023-02-26] MEDS: Arthritis Pain Compound 60 CLICK TUBE TOPICAL ×4 (06:06→22:17)
[2023-02-26] MEDS: Menthol/Lanolin/Calamine/Znox 113 GM Tube 1 APPLIC TOPICAL ×2 (08:16→22:26)
[2023-02-26] MEDS: Nystatin Powder 15gm Bottle 1 APPLIC TOPICAL ×2 (08:16→22:24)
[2023-02-26] MEDS: Petrolatum 33% Tube 1 APPLIC TOPICAL (08:16)
[2023-02-26] MEDS: Aspirin 81 MG TAB.CHEW PO (08:17)
[2023-02-26] MEDS: Captopril 12.5 MG Tablet 6.25 MG PO ×2 (08:17→22:16)
[2023-02-26] MEDS: Lidocaine 5% Patch 1 PATCH TOPICAL (08:17)
[2023-02-26] MEDS: Clopidogrel Bisulfate 75 MG Tablet PO (08:18)
[2023-02-26] MEDS: NIFEdipine 90 MG Tablet PO (08:18)
[2023-02-26] MEDS: Enoxaparin 40 MG/0.4 ML Syringe SC (08:19)
[2023-02-26] MEDS: Sertraline 50 MG Tablet PO (08:19)
[2023-02-26 08:27] VITALS: BP 142/79; PULSE 65
--- NOTE | 2023-02-26 13:18 | NURSING ---
Updated patient that staff member tested covid positive. He did not want family updated.
[2023-02-26 16:00] VITALS: BP 129/76; PULSE 69; RESP 16; TEMP 36.3; O2SAT 92
[2023-02-26] MEDS: MELATONIN 3 MG TABLET 6 MG PO (22:16)
[2023-02-26] MEDS: traZODone 100 MG Tablet PO (22:16)
[2023-02-26] MEDS: Atorvastatin Calcium 80 MG Tablet PO (22:16)
[2023-02-26] MEDS: Donepezil HCl 5 MG Tablet PO (22:16)
[2023-02-26] MEDS: Acetaminophen 500 MG Tablet 1000 MG PO (22:20)
[2023-02-26 22:27] VITALS: BP 129/81; PULSE 66
[2023-02-27] MEDS: Gabapentin 400 MG Capsule PO (05:54)
[2023-02-27] MEDS: Arthritis Pain Compound 60 CLICK TUBE TOPICAL (05:55)
[2023-02-27] MEDS: Glycerin/Hypromellose/PEG400 15 ml Bottle 2 DRP EACH EYE (05:55)
[2023-02-27] MEDS: Levothyroxine 112 MCG Tablet PO (05:55)
[2023-02-27 07:00] VITALS: BP 134/85; PULSE 68; RESP 18; TEMP 36.5; O2SAT 96
[2023-02-27 09:24] VITALS: BP 126/69; PULSE 63; RESP 18; TEMP 36.4; O2SAT 95
[2023-02-27] MEDS: Enoxaparin 40 MG/0.4 ML Syringe SC (09:26)
[2023-02-27] MEDS: Sertraline 50 MG Tablet PO (09:26)
[2023-02-27] MEDS: Captopril 12.5 MG Tablet 6.25 MG PO (09:26)
[2023-02-27] MEDS: Clopidogrel Bisulfate 75 MG Tablet PO (09:27)
[2023-02-27] MEDS: Aspirin 81 MG TAB.CHEW PO (09:27)
[2023-02-27] MEDS: NIFEdipine 90 MG Tablet PO (09:27)
[2023-02-27] MEDS: Lidocaine 5% Patch 1 PATCH TOPICAL (09:28)
[2023-02-27] MEDS: Petrolatum 33% Tube 1 APPLIC TOPICAL (09:29)
[2023-02-27] MEDS: Menthol/Lanolin/Calamine/Znox 113 GM Tube 1 APPLIC TOPICAL (09:29)
[2023-02-27] MEDS: Nystatin Powder 15gm Bottle 1 APPLIC TOPICAL (09:30)
--- NOTE | 2023-02-27 12:05 | NURSING ---
[facility] arrives to unit, transports pt to [facility]) at ~1155. Report called over to nurseBailey.
== END 2023-02-27 12:07 | disposition intermediate care facility (04) | DRG 57 ==
PROVIDERS: Admitting Provider Family Medicine Geriatric Medicine; PCP Internal Medicine; Visit Provider Family Medicine Geriatric Medicine
DX: I69.351 Hemiplegia and hemiparesis following cerebral infarction affecting right dominant side (principal); E03.9 Hypothyroidism, unspecified; F17.200 Nicotine dependence, unspecified, uncomplicated; E78.00 Pure hypercholesterolemia, unspecified; B35.4 Tinea corporis; F01.50 Vascular dementia, unspecified severity, without behavioral disturbance, psychotic disturbance, mood disturbance, and anxiety; I10 Essential (primary) hypertension; F32.A Depression, unspecified; I69.322 Dysarthria following cerebral infarction; G62.9 Polyneuropathy, unspecified; I25.10 Atherosclerotic heart disease of native coronary artery without angina pectoris; I69.320 Aphasia following cerebral infarction; H10.9 Unspecified conjunctivitis; Z95.5 Presence of coronary angioplasty implant and graft; Z79.82 Long term (current) use of aspirin; Z79.899 Other long term (current) drug therapy; Z79.890 Hormone replacement therapy; Z79.02 Long term (current) use of antithrombotics/antiplatelets
CPT/HCPCS: 36415; 73030; 80048; 84443; 85025; 87811; 92507; 92523; 92526; 97110; 97112; 97116; 97129; 97130; 97162; 97166; 97530; 97535